=== PATIENT | female | born 1980 | race Caucasian/White ===

== ENCOUNTER 2021-03-13 08:53 | Outpatient (REF) | payer OTHER, SELFPAY ==
--- NOTE | ~2021-03-13 | US_ITS ---
EXAMINATION: US THYROID CLINICAL INFORMATION: Nontoxic goiter, unspecified. COMPARISON: None TECHNIQUE: Linear transducer grayscale and color Doppler examination with attention to the region of the thyroid. FINDINGS: SIZE: Measurements of the thyroid lobes and nodules are given in sagittal, anteroposterior and transverse dimensions respectively. Right Thyroid Lobe: 3.9 x 1.2 x 2.4 cm, volume 5.9 mL. Parenchyma: The gland echotexture is heterogeneous. Thyroid vascularity is normal. Left Thyroid Lobe: 3.2 x 1.1 x 1.5 cm, volume 2.8 mL. Parenchyma: The gland echotexture is heterogeneous. Thyroid vascularity is normal. Isthmus: 0.2 cm in maximum AP dimension. Estimated total number of nodules greater than or equal to 1 cm: 0. Bricklayer Helper nodules are described as follows: 1. Location: Right inferior lateral. Size: 0.51 x 0.37 x 0.61 cm, volume 0.06 mL. Nodule characteristics: Composition: Cystic(0). ACR TI-RADS total points: 0 ACR TI-RADS category: 1 NODES: No lymphadenopathy is seen in the tissue surrounding the thyroid gland. US/US thyroid IMPRESSION: 1. Homogeneous thyroid parenchyma. No thyromegaly. 2. Inferior right thyroid cyst measuring 0.6 cm with ultrasound characteristics consistent with TI-RADS Category 1. No follow-up recommended. ACR TI-RADS RECOMMENDATION REFERENCE: Ultrasound-guided fine-needle aspiration, followup ultrasound, no further follow up. * TR1 (0 point) and TR 2 (2 points): No FNA or follow up * TR3 (3 points): FNA if more than or equal to 2.5 cm in maximum dimension, followup ultrasound in 1, 3 and 5 years if 1.5 to 2.4 cm in maximum dimension. * TR4 (4-6 points): FNA if more than or equal to 1.5 cm in maximum dimension, followup ultrasound in 1, 2, 3 and 5 years if 1 to 1.4 cm in maximum dimension. * TR5 (more than or equal to 7 points): FNA if more than or equal to 1 cm in maximum dimension, followup ultrasound every year for 5 years if 0.5 to 0.9 cm in maximum dimension. * TR3, TR4 or TR5 nodules that are below the size threshold for follow up receive no follow up.
[2021-03-13 10:51] LABS: Alanine Aminotransferase 14 U/L (0-31); Albumin Level 4.5 g/dL (3.5-5.0); Alkaline Phosphatase 62 U/L (39-117); Anion Gap 15 (12-20); Aspartate Amino Transferase 12 U/L (5-31); Bilirubin Total 0.3 mg/dL (0.0-1.0); Blood Urea Nitrogen 8 mg/dL (9-16); Calcium 9.5 mg/dL (8.4-10.2); Carbon Dioxide 23 mmol/L (22-29); Chloride 106 mmol/L (96-108); Cholesterol 225 mg/dL; Estimated Glomerular Filt Rate > 60; Glucose Fasting 111 mg/dL (60-99); HDL Cholesterol 42 mg/dL; LDL Cholesterol Calculated 139 mg/dl; Potassium 4.5 mmol/L (3.3-5.1); Sodium 139 mmol/L (135-145); Total Protein 7.4 g/dL (6.5-8.0); Triglycerides 220 mg/dL
[2021-03-13 11:03] LABS: TSH reflex Free T4 1.42 uIU/mL (0.32-4.0)
== END 2021-03-13 08:54 | disposition home or self-care (01) ==
LOC: HO.US 08:53
PROVIDERS: Nurse Practitioner Family; Visit Provider Internal Medicine
DX: Z00.00 Encounter for general adult medical examination without abnormal findings (principal); E04.9 Nontoxic goiter, unspecified
CPT/HCPCS: 36415; 76536; 80053; 80061; 84443

== ENCOUNTER 2021-05-02 08:17 | Outpatient (REF) | payer OTHER, SELFPAY ==
[2021-05-02 11:10] LABS: MANUAL DIFF FLAG NO
[2021-05-02 11:22] LABS: Glucose Urine UA NEG (NEG); Leukocyte Esterase Urine NEG (NEG); Nitrite Urine NEG (NEG); Specific Gravity - Urine 1.025 (1.005-1.025); Urine Blood NEG (NEG); Urine Ketones NEG (NEG); Urine Protein TRACE MG/DL (NEG-TRACE)
[2021-05-02 11:25] LABS: Appearance Urine CLOUDY; Color Urine YELLOW
[2021-05-02 11:33] LABS: Basophils Percent Auto 0.5 % (0-2); Eosinophils Absolute Auto 0.1 X10*3/uL (0.0-0.4); Eosinophils Percent Auto 1.5 % (0-4); Hematocrit 36.4 % (37-47); Hemoglobin 10.8 g/dl (12.0-16.0); Imm Gran Abs Auto 0.02 X10*3/uL (0.00-0.03); Imm Gran Pct Auto 0.2 % (0.0-0.4); Lymphocytes Absolute Auto 1.9 X10*3/uL (1.2-4.9); Lymphocytes Percent Auto 23.6 % (20-40); Mean Corpuscular HGB Conc 29.7 g/dl (31.0-35.0); Mean Corpuscular Volume 77.4 fL (80-98); Mean Platelet Volume 10.8 fL (9.4-12.3); Monocytes Absolute Auto 0.7 X10*3/uL (0.1-1.2); Monocytes Percent Auto 8.5 % (2-11); Neutrophils Absolute Auto 5.3 X10*3/uL (2.0-8.3); Neutrophils Percent Auto 65.7 % (45-73); Platelet Count 411 X10*3/uL (160-400); Red Cell Distribution Width 19.8 % (11.0-16.0); White Blood Count 8.1 X10*3/uL (4.8-10.8)
[2021-05-02 11:52] LABS: Iron 20 mcg/dL (30-160); Percent Iron Saturation 4 % (15-50); Total Iron Binding Capacity 464 mcg/dL (228-428); Unsaturated Iron Binding 444 ug/dL
[2021-05-02 11:56] LABS: Alanine Aminotransferase 14 U/L (0-31); Albumin Level 4.7 g/dL (3.5-5.0); Alkaline Phosphatase 59 U/L (39-117); Anion Gap 14 (12-20); Aspartate Amino Transferase 13 U/L (5-31); Bilirubin Total 0.4 mg/dL (0.0-1.0); Blood Urea Nitrogen 11 mg/dL (9-16); Calcium 9.5 mg/dL (8.4-10.2); Carbon Dioxide 23 mmol/L (22-29); Chloride 108 mmol/L (96-108); Cholesterol 172 mg/dL; Estimated Glomerular Filt Rate > 60; Glucose Fasting 112 mg/dL (60-99); HDL Cholesterol 37 mg/dL; LDL Cholesterol Calculated 83 mg/dl; Potassium 3.6 mmol/L (3.3-5.1); Sodium 141 mmol/L (135-145); Total Protein 7.3 g/dL (6.5-8.0); Triglycerides 264 mg/dL
[2021-05-02 12:04] LABS: Ferritin 4 ng/mL (10-250)
[2021-05-02 12:05] LABS: TSH reflex Free T4 1.49 uIU/mL (0.32-4.0)
[2021-05-02 12:22] LABS: Vitamin B12 182 pg/mL (200-900)
== END 2021-05-02 08:18 | disposition home or self-care (01) ==
LOC: HO.HMGCLDS 08:17
PROVIDERS: PCP Nurse Practitioner Family; Visit Provider Nurse Practitioner Family
DX: E78.5 Hyperlipidemia, unspecified (principal); G89.29 Other chronic pain; M54.5 Low back pain; R53.83 Other fatigue
CPT/HCPCS: 36415; 80053; 80061; 81003; 82607; 82728; 83540; 84443; 85025

== ENCOUNTER 2021-05-22 08:47 | Outpatient (REF) | payer OTHER, SELFPAY ==
--- NOTE | ~2021-05-22 | MR_ITS ---
EXAMINATION: MR LUMBAR SPINE WITHOUT CONTRAST CLINICAL INFORMATION: Bilateral leg pain, weakness, numbness. Lower back pain. COMPARISON: Lumbar spine MRI dated 06/19/2014 TECHNIQUE: MRI of the lumbar spine was obtained using routine sequences without contrast. FINDINGS: VERTEBRAL BODIES AND PARASPINAL STRUCTURES: Normal vertebral body alignment. The lumbar lordosis is maintained. No acute fracture or subluxation. No loss of vertebral body height. Loss of intervertebral disc height with disc desiccation at T11-T12. Additional loss of intervertebral disc height with disc desiccation at L2-S1. Modic type II degenerative endplate changes at L5-S1. Vertebral body hemangioma within L3, unchanged. No acute marrow edema to suggest osseous injury. The visualized paraspinal soft tissues are unremarkable. CONUS MEDULLARIS AND CAUDA EQUINA: Normal, terminating at the level of L1. SPINAL LEVELS: T12-L1: No significant disc bulge. Bilateral facet arthropathy. No central canal or neural foraminal stenosis. L1-L2: New, right paracentral disc protrusion with bilateral facet arthropathy. No central canal or neural foraminal stenosis. L2-L3: Broad-based disc bulge with bilateral facet arthropathy and thickening of the ligamentum flavum causing minimal central canal stenosis which encroaches upon the traversing bilateral L3 nerve roots within the lateral recesses. Mild bilateral neural foraminal stenosis. Findings are similar when compared to the prior examination. L3-L4: Broad-based disc bulge with a superimposed right paracentral and subarticular disc protrusion, slightly more prominent when compared to the prior examination. This abuts the traversing right L4 nerve root within the lateral recess. Bilateral facet arthropathy with mild bilateral neural foraminal stenosis. L4-L5: Broad-based disc bulge with a shallow left paracentral disc protrusion. Bilateral facet arthropathy and thickening of the ligamentum flavum with mild central canal stenosis which encroaches upon the traversing bilateral L5 nerve roots within the lateral recesses, left greater than right. Additionally, this causes moderate bilateral neural foraminal stenosis. Findings are slightly progressed when compared to the prior examination. L5-S1: Broad-based disc bulge with a posterior central disc protrusion which contacts the traversing bilateral S1 nerve roots within the lateral recesses and is similar when compared to the prior examination. Bilateral facet arthropathy with mild bilateral neural foraminal stenosis, unchanged. MR/MR lumbar spine wo con IMPRESSION: 1. L3-L4 broad-based disc bulge and superimposed right paracentral and subarticular disc protrusion, slightly more prominent when compared to the prior examination which abuts the traversing right L4 nerve root. Bilateral facet arthropathy with mild bilateral neural foraminal stenosis. 2. Broad-based disc bulge at L4-L5 with a shallow left paracentral disc protrusion as well as bilateral facet arthropathy and thickening of the ligamentum flavum causing mild central canal stenosis which encroaches upon the traversing bilateral L5 nerve roots, left greater than right. Moderate bilateral neural foraminal stenosis. Findings are slightly progressed when compared to the prior examination. 3. Broad-based disc bulge at L5-S1 with a posterior central disc protrusion contacting the traversing bilateral S1 nerve roots as well as bilateral facet arthropathy and mild bilateral neural foraminal stenosis. Overall, findings are similar when compared to the prior examination.
== END 2021-05-22 08:48 | disposition home or self-care (01) ==
LOC: HO.MRI 08:47
PROVIDERS: PCP Nurse Practitioner Family; Visit Provider Nurse Practitioner Family
DX: G89.29 Other chronic pain (principal); M54.5 Low back pain
CPT/HCPCS: 72148

== ENCOUNTER 2021-06-10 10:40 | Outpatient (REF) | payer OTHER, SELFPAY ==
--- NOTE | ~2021-06-10 | MM_ITS ---
EXAMINATION: MM SCREENING DIGITAL BREAST TOMOSYNTHESIS, BILATERAL CLINICAL INFORMATION: Screening. Asymptomatic. Age 40. No prior breast imaging. No known family history breast cancer. The lifetime risk of breast cancer based on the Tyrer-Cuzick Model is 13%. COMPARISON: None (current study represents initial baseline exam). TECHNIQUE: Digital breast tomosynthesis is performed in both the craniocaudal and mediolateral oblique views along with computer-aided detection (CAD). Synthesized 2D images are generated from the tomosynthesis. Additional exaggerated left CC view is provided. FINDINGS: There are scattered areas of fibroglandular density (ACR BI-RADS breast composition Category b). Breast tissue composition borders on predominantly fatty. There is no significant mass or architectural abnormality or abnormal calcifications. Incidental low left axillary tail node is present on MLO view. The axilla and skin contours are unremarkable. MM/MM tomosynthesis screening BI IMPRESSION: No mammographic evidence of malignancy. ASSESSMENT: BI-RADS 1: Negative RECOMMENDATION: Routine annual mammography screening. This patient's information was entered into a reminder system with a target due date for their next mammogram.
== END 2021-06-10 10:41 | disposition home or self-care (01) ==
LOC: HO.MAMMO 10:40
PROVIDERS: Visit Provider Nurse Practitioner Family
DX: Z12.31 Encounter for screening mammogram for malignant neoplasm of breast (principal)
CPT/HCPCS: 77063; 77067

== ENCOUNTER 2021-07-09 07:27 | Outpatient (REF) | payer OTHER, SELFPAY ==
[2021-07-09 11:52] LABS: MANUAL DIFF FLAG NO
[2021-07-09 11:58] LABS: Basophils Percent Auto 0.4 % (0-2); Eosinophils Absolute Auto 0.1 X10*3/uL (0.0-0.4); Eosinophils Percent Auto 1.3 % (0-4); Hematocrit 42.3 % (37.0-47.0); Hemoglobin 13.3 g/dl (12.0-16.0); Imm Gran Abs Auto 0.03 X10*3/uL (0.00-0.03); Imm Gran Pct Auto 0.3 % (0.0-0.4); Lymphocytes Absolute Auto 1.8 X10*3/uL (1.2-4.9); Lymphocytes Percent Auto 18.5 % (20-40); Mean Corpuscular HGB Conc 31.4 g/dl (31.0-35.0); Mean Corpuscular Hemoglobin 27.7 pg (27.0-33.0); Mean Corpuscular Volume 87.9 fL (80.0-98.0); Mean Platelet Volume 11.8 fL (9.4-12.3); Monocytes Absolute Auto 0.5 X10*3/uL (0.1-1.2); Monocytes Percent Auto 4.9 % (2-11); Neutrophils Absolute Auto 7.3 x10*3/uL (2.0-8.3); Neutrophils Percent Auto 74.6 % (45-73); Platelet Count 279 X10*3/uL (160-400); Red Blood Count 4.81 X10*6/uL (4.20-5.50); Red Cell Distribution Width 19.9 % (11.0-16.0); White Blood Count 9.8 X10*3/uL (4.8-10.8)
[2021-07-09 12:31] LABS: Ferritin 24 ng/mL (10-250)
[2021-07-09 12:33] LABS: Alanine Aminotransferase 12 U/L (0-31); Albumin Level 4.5 g/dL (3.5-5.0); Alkaline Phosphatase 53 U/L (39-117); Anion Gap 11 (12-20); Aspartate Amino Transferase 11 U/L (5-31); Bilirubin Total 0.2 mg/dL (0.0-1.0); Blood Urea Nitrogen 11 mg/dL (9-16); Calcium 8.9 mg/dL (8.4-10.2); Carbon Dioxide 24 mmol/L (22-29); Chloride 110 mmol/L (96-108); Cholesterol 179 mg/dL; Estimated Glomerular Filt Rate > 60; Glucose Random 115 mg/dL (60-115); HDL Cholesterol 37 mg/dL; Iron 31 mcg/dL (30-160); LDL Cholesterol Calculated 75 mg/dl; Percent Iron Saturation 8 % (15-50); Potassium 4.1 mmol/L (3.3-5.1); Sodium 141 mmol/L (135-145); Total Iron Binding Capacity 380 mcg/dL (228-428); Triglycerides 339 mg/dL; Unsaturated Iron Binding 349 ug/dL
[2021-07-09 12:44] LABS: Lactate Dehydrogenase 156 U/L (122-220)
[2021-07-09 12:48] LABS: Folate 10.2 ng/mL (> or = 4.0); Vitamin B12 599 pg/mL (200-900)
[2021-07-11 16:31] LABS: Transglutaminase IgA <1.0 U/mL
[2021-07-15 15:11] LABS: Parietal Cell Antibody 37.1 Unit (<=20.0)
[2021-07-16 21:56] LABS: Intrinsic Factor Antibodies Negative (Negative)
== END 2021-07-09 07:28 | disposition home or self-care (01) ==
LOC: HO.HMGCLDS 07:27
PROVIDERS: Internal Medicine Medical Oncology; PCP Nurse Practitioner Family; Visit Provider Nurse Practitioner Family
DX: D64.9 Anemia, unspecified (principal); E78.5 Hyperlipidemia, unspecified; E53.8 Deficiency of other specified B group vitamins
CPT/HCPCS: 36415; 80053; 80061; 82607; 82728; 82746; 83516; 83540; 83615; 85025; 86340

== ENCOUNTER 2021-08-08 11:19 | Outpatient (REF) | payer OTHER, SELFPAY ==
[2021-08-08 13:38] LABS: MANUAL DIFF FLAG NO
[2021-08-08 13:42] LABS: Basophils Percent Auto 0.4 % (0-2); Eosinophils Absolute Auto 0.1 X10*3/uL (0.0-0.4); Eosinophils Percent Auto 0.6 % (0-4); Hematocrit 43.5 % (37.0-47.0); Hemoglobin 14.2 g/dl (12.0-16.0); Imm Gran Abs Auto 0.03 X10*3/uL (0.00-0.03); Imm Gran Pct Auto 0.3 % (0.0-0.4); Lymphocytes Absolute Auto 1.9 X10*3/uL (1.2-4.9); Lymphocytes Percent Auto 18.1 % (20-40); Mean Corpuscular HGB Conc 32.6 g/dl (31.0-35.0); Mean Corpuscular Hemoglobin 29.2 pg (27.0-33.0); Mean Corpuscular Volume 89.5 fL (80.0-98.0); Mean Platelet Volume 11.3 fL (9.4-12.3); Monocytes Absolute Auto 0.7 X10*3/uL (0.1-1.2); Monocytes Percent Auto 6.3 % (2-11); Neutrophils Absolute Auto 7.8 x10*3/uL (2.0-8.3); Neutrophils Percent Auto 74.3 % (45-73); Platelet Count 310 X10*3/uL (160-400); Red Blood Count 4.86 X10*6/uL (4.20-5.50); Red Cell Distribution Width 17.1 % (11.0-16.0); White Blood Count 10.4 X10*3/uL (4.8-10.8)
[2021-08-08 15:01] LABS: Iron 62 mcg/dL (30-160); Percent Iron Saturation 16 % (15-50); Total Iron Binding Capacity 400 mcg/dL (228-428); Unsaturated Iron Binding 338 ug/dL
[2021-08-08 15:15] LABS: Vitamin B12 360 pg/mL (200-900)
[2021-08-08 15:21] LABS: Ferritin 24 ng/mL (10-250)
[2021-08-08 15:28] LABS: Vitamin B12 369 pg/mL (200-900)
[2021-08-12 07:26] LABS: Methylmalonic Acid 112 nmol/L (87-318)
[2021-08-12 18:16] LABS: Homocysteine 10.9 umol/L (<10.4)
== END 2021-08-08 11:20 | disposition home or self-care (01) ==
LOC: HO.HMGCLDS 11:19
PROVIDERS: PCP Nurse Practitioner Family; Visit Provider Nurse Practitioner Family
DX: D64.9 Anemia, unspecified (principal); E53.8 Deficiency of other specified B group vitamins
CPT/HCPCS: 36415; 82607; 82728; 82746; 83090; 83540; 83921; 85025

== ENCOUNTER 2021-10-01 09:45 | Outpatient (REF) | payer OTHER, SELFPAY ==
--- NOTE | ~2021-10-01 | XR_ITS ---
EXAMINATION: XR KNEE, RIGHT CLINICAL INFORMATION: Right knee pain COMPARISON: None TECHNIQUE: Four views of the right knee. FINDINGS: There is a total right knee arthroplasty with prosthetic components in satisfactory alignment. There is no joint effusion. Loose bodies or soft tissue swelling. XR/XR knee RT 4V IMPRESSION: Total right knee arthroplasty with prosthetic components in satisfactory alignment.
[2021-10-01 11:36] LABS: MANUAL DIFF FLAG NO
[2021-10-01 11:38] LABS: Basophils Percent Auto 0.4 % (0-2); Eosinophils Absolute Auto 0.1 X10*3/uL (0.0-0.4); Eosinophils Percent Auto 1.1 % (0-4); Hematocrit 43.5 % (37.0-47.0); Hemoglobin 13.9 g/dl (12.0-16.0); Imm Gran Abs Auto 0.03 X10*3/uL (0.00-0.03); Imm Gran Pct Auto 0.3 % (0.0-0.4); Lymphocytes Absolute Auto 2.5 X10*3/uL (1.2-4.9); Lymphocytes Percent Auto 25.5 % (20-40); Mean Corpuscular Hemoglobin 29.4 pg (27.0-33.0); Mean Corpuscular Volume 92.2 fL (80.0-98.0); Mean Platelet Volume 11.4 fL (9.4-12.3); Monocytes Absolute Auto 0.7 X10*3/uL (0.1-1.2); Neutrophils Absolute Auto 6.4 x10*3/uL (2.0-8.3); Neutrophils Percent Auto 65.7 % (45-73); Platelet Count 303 X10*3/uL (160-400); Red Blood Count 4.72 X10*6/uL (4.20-5.50); Red Cell Distribution Width 14.1 % (11.0-16.0); White Blood Count 9.7 X10*3/uL (4.8-10.8)
[2021-10-01 12:14] LABS: Alanine Aminotransferase 15 U/L (0-31); Albumin Level 4.7 g/dL (3.5-5.0); Alkaline Phosphatase 41 U/L (39-117); Anion Gap 12 (12-20); Aspartate Amino Transferase 12 U/L (5-31); Bilirubin Total 0.4 mg/dL (0.0-1.0); Blood Urea Nitrogen 10 mg/dL (9-16); Calcium 9.2 mg/dL (8.4-10.2); Carbon Dioxide 21 mmol/L (22-29); Chloride 112 mmol/L (96-108); Estimated Glomerular Filt Rate > 60; Glucose Random 90 mg/dL (60-115); Potassium 4.1 mmol/L (3.3-5.1); Sodium 141 mmol/L (135-145); Total Protein 7.5 g/dL (6.5-8.0)
[2021-10-01 12:18] LABS: TSH reflex Free T4 1.06 uIU/mL (0.32-4.0)
[2021-10-01 12:29] LABS: Folate > 20.0 ng/mL (> or = 4.0); Vitamin B12 527 pg/mL (200-900)
== END 2021-10-01 09:46 | disposition home or self-care (01) ==
LOC: HO.HMGCLDS 09:45
PROVIDERS: Visit Provider Nurse Practitioner Family
DX: E53.8 Deficiency of other specified B group vitamins (principal); R53.83 Other fatigue
CPT/HCPCS: 36415; 73564; 80053; 82607; 82746; 84443; 85025

== ENCOUNTER 2021-12-11 09:04 | Outpatient (REF) | payer OTHER, SELFPAY ==
[2021-12-11 11:09] LABS: MANUAL DIFF FLAG NO
[2021-12-11 11:29] LABS: Basophils Percent Auto 0.4 % (0-2); Eosinophils Absolute Auto 0.1 X10*3/uL (0.0-0.4); Eosinophils Percent Auto 1.2 % (0-4); Hematocrit 42.7 % (37.0-47.0); Imm Gran Abs Auto 0.04 X10*3/uL (0.00-0.03); Imm Gran Pct Auto 0.4 % (0.0-0.4); Lymphocytes Absolute Auto 2.2 X10*3/uL (1.2-4.9); Lymphocytes Percent Auto 20.8 % (20-40); Mean Corpuscular HGB Conc 32.8 g/dl (31.0-35.0); Mean Corpuscular Hemoglobin 30.2 pg (27.0-33.0); Mean Platelet Volume 11.2 fL (9.4-12.3); Monocytes Absolute Auto 0.6 X10*3/uL (0.1-1.2); Monocytes Percent Auto 5.9 % (2-11); Neutrophils Absolute Auto 7.6 x10*3/uL (2.0-8.3); Neutrophils Percent Auto 71.3 % (45-73); Platelet Count 263 X10*3/uL (160-400); Red Blood Count 4.64 X10*6/uL (4.20-5.50); Red Cell Distribution Width 13.7 % (11.0-16.0); White Blood Count 10.7 X10*3/uL (4.8-10.8)
[2021-12-11 11:50] LABS: Iron 96 mcg/dL (30-160); Percent Iron Saturation 25 % (15-50); Total Iron Binding Capacity 388 mcg/dL (228-428); Unsaturated Iron Binding 292 ug/dL
[2021-12-11 11:58] LABS: Ferritin 22 ng/mL (10-250)
[2021-12-11 12:12] LABS: Folate > 20.0 ng/mL (> or = 4.0); Vitamin B12 444 pg/mL (200-900)
[2021-12-12 11:36] LABS: Lyme Abs Screen <0.90 index
== END 2021-12-11 09:05 | disposition home or self-care (01) ==
LOC: HO.HMGCLDS 09:04
PROVIDERS: PCP Nurse Practitioner Family; Visit Provider Nurse Practitioner Family
DX: E53.8 Deficiency of other specified B group vitamins (principal); R53.83 Other fatigue; E61.1 Iron deficiency
CPT/HCPCS: 36415; 82607; 82728; 82746; 83540; 85025; 86617; 86618

== ENCOUNTER 2021-12-26 09:00 | Outpatient (RCR) | payer OTHER, SELFPAY ==
--- NOTE | 2021-12-04 11:59 | MHC.PT.EP ---
[facility] [place] Office [place] Office [place] Office [address] Fernando Green [address] [phone] F: [phone] F: [phone] F: [phone] F: [phone] Physical Therapy Plan of Care Date of Evaluation: Date of Surgery: R knee TKA 2016 Diagnosis: R knee pain Assessment: Patient is a 41 year old R handed female who presents with s/s consistent with R knee pain. She had a TKA in 2017. Over the last few months, pain has increased to the point where it limits her functionally. She is disabled with an extensive PMH and surgical history. She does care for her mother to some extent. Patient past medical history includes multiple surgeries, bipolar disorder. A full list of surgeries will be retrieved by patient for her first follow up appointment. Current impairments include pain, posture, ROM, strength, activity tolerance and functional mobility. Functional limitations include decreased ability to stand, walk, negotiate stairs and perform weight bearing activities. Patient is motivated with good rehab potential. Skilled PT will address impairments and functional limitations in order to achieve goals. Frequency and Duration: The patient will be seen 2x/week for 5 weeks Short Term Goals: I with HEP - 2 weeks Normal gastroc and HS flexibility - 3 weeks Business Improvement Manager Goals: Able to negotiate stairs pain free - 5 weeks Amb > 20 minutes without increasing pain - 5 weeks TTP eliminated - 5 weeks LEFS 62/80 - 5 weeks Treatment Plan: Modalities to reduce pain, spasms and effusion. Manual therapy to restore motion and function. Therapeutic exercise to improve strength and flexibility. Neuromuscular re-education for posture and balance. Therapeutic activities to return to functional activities of daily living. Electronically signed by: Pawel Vee, PT Please sign and return to therapist. Thank you for your referral.
--- NOTE | 2021-12-26 14:57 | MHC.PT.OD ---
[facility] [place] Office [place] [employer] Office [place] Office [address] Fernando Green [address] [phone] F: [phone] F: [phone] F: [phone] F: [phone] Physical Therapy Daily Note Diagnosis: R knee pain Date of Surgery: R knee TKA 2016 Date of Evaluation: 12/04/21 Date of Treatment: 12/26/21 Treatments to Date: 6 Cancellations to Date: No Shows to Date: Authorized Visits: Insurance End Date: Precautions/ Contraindications:R TKA, L knee is bone on bone . MRI shows nerve involvement and central stenosis at various lumbar levels Subjective: Pt notes getting B12 shot and not feeling well. Pain Score and Location: 7 Objective Flowsheet: Tests & Measures LEFS 29/80 (45/80 on eval) Exercises Stepper 8 min L2 pt edu IASTM to ITB Modalities Assessment: 12/26/21: due to increased s/s with low level, low impact ex, we will hold on PT and refer back to referring provider to promote optimal management of this patient. further imaging may be of benefit. 12/23/21: attempted very mild progression but pt had increased pain even though all ex was done on stepper or plinth. we will continue to attempt meaningful progress NV. 12/19/21: we discussed response to PT last visit and appropriate response to PT. reduced standing activity load. assess response Nv. 12/12/21: pt notes increased soreness in b/l knee. we will manage this as we attempt to progress. we held on shuttle today. we will revisit this down the road as pt improved tolerance. 12/09/21: progressed with skilled PT for strength. we will assess response and progress as tolerated. Patient is a 41 year old R handed female who presents with s/s consistent with R knee pain. She had a TKA in 2017. Over the last few months, pain has increased to the point where it limits her functionally. She is disabled with an extensive PMH and surgical history. She does care for her mother to some extent. Patient past medical history includes multiple surgeries, bipolar disorder. A full list of surgeries will be retrieved by patient for her first follow up appointment. Current impairments include pain, posture, ROM, strength, activity tolerance and functional mobility. Functional limitations include decreased ability to stand, walk, negotiate stairs and perform weight bearing activities. Patient is motivated with good rehab potential. Skilled PT will address impairments and functional limitations in order to achieve goals. PT Plan: reduce pain with functional activities, restore patellar mobility and positioning. Short Term Goals: I with HEP - 2 weeks Normal gastroc and HS flexibility - 3 weeks [facility] Goals: Able to negotiate stairs pain free - 5 weeks Amb > 20 minutes without increasing pain - 5 weeks TTP eliminated - 5 weeks LEFS 62/80 - 5 weeks Electronically signed by: Pawel Vee, PT
--- NOTE | 2022-05-22 10:04 | MHC.PT.DC ---
[facility] [place] Office [place] Office [place] Office [address] Fernando Green [address] [phone] F: [phone] F: [phone] F: [phone] F: [phone] Physical Therapy Discharge Report Diagnosis: R knee pain Date of Surgery: R knee TKA 2016 Date of Evaluation: 12/04/21 Date of Discharge: 01/22/22 Treatments to Date: 6 Cancellations to Date: No Shows to Date: Discharge Status: Improved Function Independent with HEP Discharge Summary: 12/26/21: due to increased s/s with low level, low impact ex, we will hold on PT and refer back to referring provider to promote optimal management of this patient. further imaging may be of benefit. 12/23/21: attempted very mild progression but pt had increased pain even though all ex was done on stepper or plinth. we will continue to attempt meaningful progress NV. 12/19/21: we discussed response to PT last visit and appropriate response to PT. reduced standing activity load. assess response Nv. 12/12/21: pt notes increased soreness in b/l knee. we will manage this as we attempt to progress. we held on shuttle today. we will revisit this down the road as pt improved tolerance. 12/09/21: progressed with skilled PT for strength. we will assess response and progress as tolerated. Patient is a 41 year old R handed female who presents with s/s consistent with R knee pain. She had a TKA in 2016. Over the last few months, pain has increased to the point where it limits her functionally. She is disabled with an extensive PMH and surgical history. She does care for her mother to some extent. Patient past medical history includes multiple surgeries, bipolar disorder. A full list of surgeries will be retrieved by patient for her first follow up appointment. Current impairments include pain, posture, ROM, strength, activity tolerance and functional mobility. Functional limitations include decreased ability to stand, walk, negotiate stairs and perform weight bearing activities. Patient is motivated with good rehab potential. Skilled PT will address impairments and functional limitations in order to achieve goals. Electronically signed by: Pawel Vee, PT Please sign and return to therapist. Thank you for your referral.
--- NOTE | 2022-05-22 10:04 | MHC.PT.DC ---
[facility] [place] Office [place] Office [place] Office [address] Fernando Green [address] [phone] F: [phone] F: [phone] F: [phone] F: [phone] Physical Therapy Discharge Report Diagnosis: R knee pain Date of Surgery: R knee TKA 2016 Date of Evaluation: 12/04/21 Date of Discharge: 01/22/22 Treatments to Date: 6 Cancellations to Date: No Shows to Date: Discharge Status: Improved Function Independent with HEP Discharge Summary: 12/26/21: due to increased s/s with low level, low impact ex, we will hold on PT and refer back to referring provider to promote optimal management of this patient. further imaging may be of benefit. 12/23/21: attempted very mild progression but pt had increased pain even though all ex was done on stepper or plinth. we will continue to attempt meaningful progress NV. 12/19/21: we discussed response to PT last visit and appropriate response to PT. reduced standing activity load. assess response Nv. 12/12/21: pt notes increased soreness in b/l knee. we will manage this as we attempt to progress. we held on shuttle today. we will revisit this down the road as pt improved tolerance. 12/09/21: progressed with skilled PT for strength. we will assess response and progress as tolerated. Patient is a 41 year old R handed female who presents with s/s consistent with R knee pain. She had a TKA in 2016. Over the last few months, pain has increased to the point where it limits her functionally. She is disabled with an extensive PMH and surgical history. She does care for her mother to some extent. Patient past medical history includes multiple surgeries, bipolar disorder. A full list of surgeries will be retrieved by patient for her first follow up appointment. Current impairments include pain, posture, ROM, strength, activity tolerance and functional mobility. Functional limitations include decreased ability to stand, walk, negotiate stairs and perform weight bearing activities. Patient is motivated with good rehab potential. Skilled PT will address impairments and functional limitations in order to achieve goals. Electronically signed by: Pawel Vee, PT Please sign and return to therapist. Thank you for your referral.
== END 2022-05-22 10:04 | disposition home or self-care (01) ==
LOC: HO.PTCHIC 09:00
PROVIDERS: PCP Nurse Practitioner Family; Visit Provider Nurse Practitioner Family
DX: M25.561 Pain in right knee (principal)
CPT/HCPCS: 97110; 97140; 97163

== ENCOUNTER 2022-07-02 07:35 | Outpatient (REF) | payer OTHER, SELFPAY ==
[2022-07-02 12:03] LABS: MANUAL DIFF FLAG NO
[2022-07-02 12:07] LABS: Basophils Percent Auto 0.5 % (0-2); Eosinophils Absolute Auto 0.2 X10*3/uL (0.0-0.4); Eosinophils Percent Auto 1.8 % (0-4); Hematocrit 42.8 % (37.0-47.0); Hemoglobin 14.3 g/dl (12.0-16.0); Imm Gran Abs Auto 0.02 X10*3/uL (0.00-0.03); Imm Gran Pct Auto 0.2 % (0.0-0.4); Lymphocytes Absolute Auto 2.9 X10*3/uL (1.2-4.9); Lymphocytes Percent Auto 34.8 % (20-40); Mean Corpuscular HGB Conc 33.4 g/dl (31.0-35.0); Mean Corpuscular Hemoglobin 30.4 pg (27.0-33.0); Mean Corpuscular Volume 90.9 fL (80.0-98.0); Mean Platelet Volume 11.5 fL (9.4-12.3); Monocytes Absolute Auto 0.6 X10*3/uL (0.1-1.2); Monocytes Percent Auto 7.5 % (2-11); Neutrophils Absolute Auto 4.5 x10*3/uL (2.0-8.3); Neutrophils Percent Auto 55.2 % (45-73); Platelet Count 271 X10*3/uL (160-400); Red Blood Count 4.71 X10*6/uL (4.20-5.50); Red Cell Distribution Width 12.4 % (11.0-16.0); White Blood Count 8.2 X10*3/uL (4.8-10.8)
[2022-07-02 12:36] LABS: Alanine Aminotransferase 10 U/L (0-31); Albumin Level 4.8 g/dL (3.5-5.0); Alkaline Phosphatase 54 U/L (39-117); Anion Gap 17 (12-20); Aspartate Amino Transferase 10 U/L (5-31); Bilirubin Total 0.3 mg/dL (0.0-1.0); Blood Urea Nitrogen 17 mg/dL (9-16); Carbon Dioxide 23 mmol/L (22-29); Chloride 108 mmol/L (96-108); Estimated Glomerular Filt Rate > 60; Glucose Random 95 mg/dL (60-115); Iron 117 mcg/dL (30-160); Percent Iron Saturation 33 % (15-50); Potassium 4.1 mmol/L (3.3-5.1); Sodium 144 mmol/L (135-145); Total Iron Binding Capacity 351 mcg/dL (228-428); Total Protein 7.4 g/dL (6.5-8.0); Unsaturated Iron Binding 234 ug/dL
[2022-07-02 12:42] LABS: Ferritin 86 ng/mL (10-250); TSH reflex Free T4 2.31 uIU/mL (0.32-4.0)
[2022-07-02 13:15] LABS: Folate > 20.0 ng/mL (> or = 4.0); Vitamin B12 541 pg/mL (200-900)
== END 2022-07-02 07:36 | disposition home or self-care (01) ==
LOC: HO.HMGCLDS 07:35
PROVIDERS: PCP Nurse Practitioner Family; Visit Provider Nurse Practitioner Family
DX: E53.8 Deficiency of other specified B group vitamins (principal); E61.1 Iron deficiency; R79.89 Other specified abnormal findings of blood chemistry; D64.9 Anemia, unspecified
CPT/HCPCS: 36415; 80053; 82607; 82728; 82746; 83540; 84443; 85025

== ENCOUNTER 2022-11-27 09:52 | Outpatient (REF) | payer OTHER, SELFPAY ==
--- NOTE | ~2022-11-27 | MM_ITS ---
EXAMINATION: MM SCREENING DIGITAL BREAST TOMOSYNTHESIS, BILATERAL CLINICAL INFORMATION: Screening. Asymptomatic. The lifetime risk of breast cancer based on the Tyrer-Cuzick Model is 11.3%. COMPARISON: Mammography: June 10, 2021 TECHNIQUE: Digital breast tomosynthesis is performed in both the craniocaudal and mediolateral oblique views along with computer-aided detection (CAD). Synthesized 2D images are generated from the tomosynthesis. FINDINGS: The breasts are almost entirely fatty (ACR BI-RADS breast composition Category a). There are no significant masses, abnormal calcifications, or other abnormalities. MM/MM tomosynthesis screening BI IMPRESSION: No significant changes from prior exam. ASSESSMENT: BI-RADS 1: Negative RECOMMENDATION: Routine annual mammography screening. This patient's information was entered into a reminder system with a target due date for their next mammogram.
== END 2022-11-27 09:53 | disposition home or self-care (01) ==
LOC: HO.MAMMO 09:52
PROVIDERS: PCP Nurse Practitioner Family; Visit Provider Nurse Practitioner Family
DX: Z12.31 Encounter for screening mammogram for malignant neoplasm of breast (principal)
CPT/HCPCS: 77063; 77067

== ENCOUNTER 2022-12-17 08:41 | Outpatient (REF) | payer OTHER, SELFPAY ==
[2022-12-17 11:27] LABS: MANUAL DIFF FLAG NO
[2022-12-17 11:31] LABS: Appearance Urine Cloudy; Color Urine Yellow; Glucose Urine UA Negative (Negative); Leukocyte Esterase Urine Negative (Negative); Nitrite Urine Negative (Negative); Specific Gravity - Urine 1.025 (1.005-1.025); Urine Blood Negative (Negative); Urine Ketones Negative (Negative); Urine Protein Negative (Neg-Trace)
[2022-12-17 11:39] LABS: Basophils Percent Auto 0.4 % (0-2); Eosinophils Absolute Auto 0.1 X10*3/uL (0.0-0.4); Eosinophils Percent Auto 0.7 % (0-4); Hematocrit 41.9 % (37.0-47.0); Hemoglobin 14.1 g/dl (12.0-16.0); Imm Gran Abs Auto 0.03 X10*3/uL (0.00-0.03); Imm Gran Pct Auto 0.3 % (0.0-0.4); Lymphocytes Percent Auto 20.2 % (20-40); Mean Corpuscular HGB Conc 33.7 g/dl (31.0-35.0); Mean Corpuscular Hemoglobin 31.1 pg (27.0-33.0); Mean Corpuscular Volume 92.3 fL (80.0-98.0); Mean Platelet Volume 10.9 fL (9.4-12.3); Monocytes Absolute Auto 0.6 X10*3/uL (0.1-1.2); Monocytes Percent Auto 6.1 % (2-11); Neutrophils Absolute Auto 7.1 x10*3/uL (2.0-8.3); Neutrophils Percent Auto 72.3 % (45-73); Platelet Count 266 X10*3/uL (160-400); Red Blood Count 4.54 X10*6/uL (4.20-5.50); Red Cell Distribution Width 13.6 % (11.0-16.0); White Blood Count 9.8 X10*3/uL (4.8-10.8)
[2022-12-17 12:13] LABS: Alanine Aminotransferase 16 U/L (0-31); Albumin Level 4.6 g/dL (3.5-5.0); Alkaline Phosphatase 43 U/L (39-117); Anion Gap 11 (12-20); Aspartate Amino Transferase 12 U/L (5-31); Bilirubin Total 0.4 mg/dL (0.0-1.0); Blood Urea Nitrogen 13 mg/dL (9-16); Calcium 8.8 mg/dL (8.4-10.2); Carbon Dioxide 23 mmol/L (22-29); Chloride 112 mmol/L (96-108); Cholesterol 182 mg/dL; Estimated Glomerular Filt Rate > 60; Glucose Fasting 101 mg/dL (60-99); Glucose Random 101 mg/dL (60-115); HDL Cholesterol 48 mg/dL; LDL Cholesterol Calculated 110 mg/dl; Potassium 3.9 mmol/L (3.3-5.1); Sodium 142 mmol/L (135-145); Total Protein 6.9 g/dL (6.5-8.0); Triglycerides 121 mg/dL
[2022-12-17 12:16] LABS: Ferritin 44 ng/mL (10-250)
[2022-12-17 12:35] LABS: Vitamin B12 531 pg/mL (200-900)
[2022-12-19 09:43] LABS: Thyroid Peroxidase Antibodies 1 IU/mL (<9)
== END 2022-12-17 08:42 | disposition home or self-care (01) ==
LOC: HO.HMGCLDS 08:41
PROVIDERS: Absent Provider Internal Medicine Medical Oncology; PCP Nurse Practitioner Family; Visit Provider Nurse Practitioner Family
DX: E04.9 Nontoxic goiter, unspecified (principal); D64.9 Anemia, unspecified; R79.89 Other specified abnormal findings of blood chemistry
CPT/HCPCS: 36415; 80053; 80061; 81003; 82607; 82728; 84443; 85025; 86376

== ENCOUNTER → 2023-01-08 07:42 | Outpatient (BNVA) | payer OTHER, SELFPAY | PROVIDERS: PCP Nurse Practitioner Family; Visit Provider Nurse Practitioner Family | DX: G47.30 Sleep apnea, unspecified (principal); R53.83 Other fatigue; Z99.89 Dependence on other enabling machines and devices | CPT/HCPCS: 99202 ==

== ENCOUNTER → 2023-02-12 09:52 | Outpatient (REF) | payer OTHER, SELFPAY | LOC: HO.SL 09:52 | PROVIDERS: PCP Nurse Practitioner Family; Visit Provider Nurse Practitioner Family | DX: G47.30 Sleep apnea, unspecified (principal); R06.83 Snoring | CPT/HCPCS: 95806 ==

== ENCOUNTER 2023-02-25 11:03 | Outpatient (REF) | payer OTHER, SELFPAY ==
[2023-02-25 11:12] LABS: MANUAL DIFF FLAG NO
[2023-02-25 11:43] LABS: Basophils Absolute Auto 0.1 X10*3/uL (0.0-0.2); Basophils Percent Auto 0.4 % (0-2); Eosinophils Absolute Auto 0.1 X10*3/uL (0.0-0.4); Eosinophils Percent Auto 0.9 % (0-4); Hematocrit 43.1 % (37.0-47.0); Hemoglobin 14.4 g/dl (12.0-16.0); Imm Gran Abs Auto 0.06 X10*3/uL (0.00-0.03); Imm Gran Pct Auto 0.4 % (0.0-0.4); Lymphocytes Absolute Auto 2.4 X10*3/uL (1.2-4.9); Lymphocytes Percent Auto 17.6 % (20-40); Mean Corpuscular HGB Conc 33.4 g/dl (31.0-35.0); Mean Corpuscular Hemoglobin 30.8 pg (27.0-33.0); Mean Corpuscular Volume 92.1 fL (80.0-98.0); Mean Platelet Volume 11.1 fL (9.4-12.3); Monocytes Absolute Auto 0.8 X10*3/uL (0.1-1.2); Monocytes Percent Auto 5.8 % (2-11); Neutrophils Absolute Auto 10.3 x10*3/uL (2.0-8.3); Neutrophils Percent Auto 74.9 % (45-73); Platelet Count 276 X10*3/uL (160-400); Red Blood Count 4.68 X10*6/uL (4.20-5.50); Red Cell Distribution Width 13.3 % (11.0-16.0); White Blood Count 13.8 X10*3/uL (4.8-10.8)
[2023-02-25 11:54] LABS: INTERNATIONAL NORM RATIO 0.9 (0.9-1.1)
[2023-02-25 11:57] LABS: Partial Thromboplastin Time 30.7 SEC (26.0-36.4)
[2023-02-25 12:23] LABS: Iron 54 mcg/dL (30-160); Percent Iron Saturation 16 % (15-50); Total Iron Binding Capacity 347 mcg/dL (228-428); Unsaturated Iron Binding 293 ug/dL
[2023-02-25 12:31] LABS: Ferritin 33 ng/mL (10-250)
== END 2023-02-25 11:04 | disposition home or self-care (01) ==
LOC: HO.LAB 11:03
PROVIDERS: PCP Nurse Practitioner Family; Visit Provider Nurse Practitioner Family
DX: R23.3 Spontaneous ecchymoses (principal); R53.83 Other fatigue
CPT/HCPCS: 36415; 82728; 83540; 85025; 85610; 85730

== ENCOUNTER 2023-03-26 14:30 | Outpatient (AMB) | payer OTHER, SELFPAY ==
--- NOTE | 2023-03-26 14:37 | MHC.PC.OV ---
Vital Signs 03/26/23 14:38 Height 5 ft 7 in BMI Reason not done Patient refused/unable BP 160/78 H Blood Pressure Location Rt brachial Position Sitting Pulse 79 Pulse Source Pulse Oximeter Pulse Oximetry (%) 98 Oxygen Delivery Method Room Air Intake Visit Reasons: HDF ~ Post hospital discharge FU Allergies allopurinol Allergy (Unknown, Verified 03/26/23 14:43) does not remember aloe vera [ALOE VERA] Allergy (Unknown, Verified 03/26/23 14:43) RASH metoclopramide [From REGLAN] Allergy (Unknown, Verified 03/26/23 14:43) LINDA Tobacco use date assessed: 03/26/23 Dental Screening Dental Screen Date: 03/26/23 Did you have a dental visit in the last 12 months?: No Did you have a dental problem in the last 6 months where you did not have access to dental care?: No Was dental information given to patient?: Patient has dentist HPI HDF ~ Post hospital discharge FU HPI Details Pt was seen in the ER on 03/06 c/o bilateral lower back pain. She was given IV toradol and dilaudid which did not help. She was admitted for pain management. Pt had a right SI joint injection. MRI showed multi-level DDD without evidence of spinal stenosis or focal nerve root compression, a central disc extrusion at L4-L5 has improved. She does report radiculopathy down her BLE. She reports that her legs are completely numb. Pt also reports urinary incontinence and saddle numbness. Pt is in tears today due to pain. Explained to pt that she needs to go to the ER due to possible cauda equina. EMS called. [facility] Medical History (Updated 03/26/23 @ 15:04 by JEN Beckwith-) Arthritis of knee, left Bipolar 2 disorder History of abdominal hernia Surgical History (Updated 01/13/23 @ 14:50 by Pete Thrasher MD) H/O hernia repair History of colostomy reversal History of elbow surgery History of left oophorectomy History of partial hypophysectomy History of partial surgical removal of colon History of total right knee replacement Family History Father Hypertension Mother Pre-diabetes Hypertension Sister Cervical cancer Social History (Reviewed 01/13/23 @ 14:38 by Yecenia Partida Household Members: Family Housing: Apartment Are you a primary career development coordinator to a significant other at home: No Do you presently have visiting nurse or other home services: No Alcohol intake: current Alcohol intake frequency: a few times a month Patient Tobacco Use Status: Current everyday Tobacco user Tobacco use type: Cigarette Cigarettes Per Day: 4 Years Smoked: 20 years Packs per year/per ci.00 e-Cigarette/Vaping Use: Currently Using Second Hand Smoke Exposure: No Substance Use Type: Marijuana service: No Current occupational status: disabled Cognitive needs: No Hearing needs: No Vision needs: No Questionnaire Thrive Questionnaire Date Thrive assessed: 12/31/22 LUZ-7 AMB Questionnaire LUZ-7 Date LUZ - 7 assessed: 12/31/22 Source: Developed by Drs. Jeffrey Mcintosh, Robyn Turk, Shahid Benavidez and colleagues, with an educational suhail from [employer]. Review of Systems Const Reports as per HPI Physical exam (Primary Care) Vital Signs: Last Vital Signs Pulse 79 03/26/23 14:38 BP 160/78 H 03/26/23 14:38 Pulse Ox 98 03/26/23 14:38 Oxygen Delivery Method Room Air 03/26/23 14:38 Tobacco/Smoking Status: Tobacco use Status Tobacco use date assessed 03/26/23 03/26/23 14:49 Patient Tobacco Use Status Current everyday Tobacco 03/26/23 14:49 Tobacco use type Cigarette 03/26/23 14:49 e-Cigarette/Vaping Use Currently Using 03/26/23 14:49 Thrive Assessment: Date of Thrive Assessment Date Thrive assessed 12/31/22 03/26/23 14:49 Const Other: using cane General: cooperative Orientation/consciousness: patient oriented x3 Limitations: ambulation with cane Neuro General: patient oriented x3 Psych Appearance: grossly normal Mental Status: mental status grossly normal Speech and movement: Normal speech and movement present Affect: normal affect Attitude: cooperative Thought process: Normal thought process present Thought content: Normal thought content present Insight: Good insight present (Psych) Judgement: Good judgement present (Psych) Assessment and Plan Assessment & Plan (1) Chronic radicular pain of lower back: Code(s): M54.16 - Radiculopathy, lumbar region; G89.29 - Other chronic pain Plan: Referred to neurosurgery, ambulance called, pt transported to hospital Plan The patient agreed to the use of a medical supply technician for this encounter. Scribed for TERESA Novak by Cristy Phelps medical supply technician, on 03/26/2023 at 15:00 EST. Orders: Referrals Neurosurgery Referral G89.29 - Other chronic pain, M54.16 - Radiculopathy, lumbar region Coding Level of Care Code Est Pt Level 3 (84956) Diagnoses Chronic radicular pain of lower back M54.16; G89.29
[2023-03-26 14:38] VITALS: BP 160/78; PULSE 79; O2SAT 98
== END 2023-03-26 16:54 | disposition home or self-care (01) ==
PROVIDERS: PCP Nurse Practitioner Family; Visit Provider Nurse Practitioner Family
DX: M54.16 Radiculopathy, lumbar region (principal); G89.29 Other chronic pain
CPT/HCPCS: 99213

== ENCOUNTER 2023-05-12 10:20 | Outpatient (AMB) | payer OTHER, SELFPAY ==
--- NOTE | 2023-05-12 10:30 | A.OFFPC_ITS ---
Vital Signs 05/12/23 10:31 Height 5 ft 7 in Weight 219 lb 6 oz BMI 34.4 BP 142/100 H Blood Pressure Location Rt brachial Position Sitting Pulse 77 Pulse Source Pulse Oximeter Pulse Oximetry (%) 97 Oxygen Delivery Method Room Air Intake Visit Reasons: 4m f/u / HDF Allergies allopurinol Allergy (Unknown, Verified 05/12/23 10:34) does not remember aloe vera [ALOE VERA] Allergy (Unknown, Verified 05/12/23 10:34) RASH metoclopramide [From REGLAN] Allergy (Unknown, Verified 05/12/23 10:34) LINDA pregabalin [From Lyrica] Adverse Reaction (Intermediate, Verified 05/12/23 10:36) Muscle cramps gabapentin Adverse Reaction (Verified 05/12/23 10:36) Muscle cramps Tobacco use date assessed: 05/12/23 HPI 4m f/u / HDF HPI Details Pt was admitted to the hospital from 03/06-03/16 for acute lower back pain. She was given an SI joint injection and a prednisone taper. Pt was d/c with morphine. She returned to the ER on 03/27 c/o recurrent pain. MRI showed DDD of the lumbar spine with disc bulging, see results. Pt had a follow-up with pain management on 05/01. She was d/c with VNA services. Pt was seen in the ER again on 04/14 c/o worsening pain. She was admitted and started on pain medications. Pt was d/c to rehab and given pain medications. Pt has a follow up with the spine center on 05/15 at 9am. She reports ongoing lower back pain with radicular symptoms down her right buttock and leg with numbness down to her foot. Pt is was taking dilaudid twice a day and is almost out. Will send short duration of percocet. Educated pt on risk of addiction, this is not a long-term med. Pt understands that they can not drive while taking this med, share this med, and to only take as prescribed. [facility] Medical History (Updated 03/26/23 @ 15:04 by JEN Beckwith-) Arthritis of knee, left History of abdominal hernia Bipolar 2 disorder Surgical History (Updated 01/13/23 @ 14:50 by Pete Thrasher MD) History of partial hypophysectomy H/O hernia repair History of colostomy reversal History of elbow surgery History of left oophorectomy History of partial surgical removal of colon History of total right knee replacement Family History Father Hypertension Mother Pre-diabetes Hypertension Sister Cervical cancer Social History Household Members: Family Housing: Apartment Are you a primary client care representative to a significant other at home: No Do you presently have visiting nurse or other home services: No Alcohol intake: current Alcohol intake frequency: a few times a month Patient Tobacco Use Status: Current everyday Tobacco user Tobacco use type: Cigarette Cigarettes Per Day: 4 Years Smoked: 20 years Packs per year/per ci.00 e-Cigarette/Vaping Use: Currently Using Second Hand Smoke Exposure: No Substance Use Type: Marijuana service: No Current occupational status: disabled Cognitive needs: No Hearing needs: No Vision needs: No Questionnaire Thrive Questionnaire Date Thrive assessed: 12/31/22 LUZ-7 AMB Questionnaire LUZ-7 Date LUZ - 7 assessed: 12/31/22 Source: Developed by Drs. Jeffrey Mcintosh, Robyn Turk, Shahid Benavidez and colleagues, with an educational suhail from [employer]. Review of Systems Const Reports as per HPI Physical exam (Primary Care) Vital Signs: Last Vital Signs Pulse 77 05/12/23 10:31 BP 142/100 H 05/12/23 10:31 Pulse Ox 97 05/12/23 10:31 Oxygen Delivery Method Room Air 05/12/23 10:31 BMI result Body Mass Index 34.4 Tobacco/Smoking Status: Tobacco use Status Tobacco use date assessed 05/12/23 05/12/23 10:39 Patient Tobacco Use Status Current everyday Tobacco 05/12/23 10:37 Tobacco use type Cigarette 05/12/23 10:37 e-Cigarette/Vaping Use Currently Using 05/12/23 10:37 Thrive Assessment: Date of Thrive Assessment Date Thrive assessed 12/31/22 05/12/23 10:37 Const General: cooperative Orientation/consciousness: patient oriented x3 Limitations: ambulation with cane Back/Spine/Pelvis Other: severe pain with palpation of right lower back, unable to heel and toe walk, too uncomfortable to get into supine position Neuro General: patient oriented x3 Psych Appearance: grossly normal Mental Status: mental status grossly normal Speech and movement: Normal speech and movement present Affect: normal affect Attitude: cooperative Thought process: Normal thought process present Thought content: Normal thought content present Insight: Good insight present (Psych) Judgement: Good judgement present (Psych) Assessment and Plan Assessment & Plan (1) Chronic radicular pain of lower back: Code(s): M54.16 - Radiculopathy, lumbar region; G89.29 - Other chronic pain Plan The patient agreed to the use of a medical assisting program director for this encounter. Scribed for JEN Novak-ANDRE by Cristy Phelps medical assisting program director, on 05/12/2023 at 10:50 EST. Orders: Orders Complete Blood Count Auto Diff Today E04.9 - Nontoxic goiter, unspecified, E78.5 - Hyperlipidemia, unspecified TSH reflex Free T4 Today E04.9 - Nontoxic goiter, unspecified, E78.5 - Hyperlipidemia, unspecified UA CC w/rflx Micro + Cult Today E04.9 - Nontoxic goiter, unspecified, E78.5 - Hyperlipidemia, unspecified Comprehensive [place]. Panel Fast Today E04.9 - Nontoxic goiter, unspecified, E78.5 - Hyperlipidemia, unspecified Lipid Panel Today E04.9 - Nontoxic goiter, unspecified, E78.5 - Hyperlipidemia, unspecified Medications: New oxycodone-acetaminophen 5-325 mg (Percocet) Partial Fill upon patient request. 1 tab PO Q8H PRN 15 tabs 0RF pain 5 days Coding Level of Care Code Est Pt Level 3 (07557) Diagnoses Chronic radicular pain of lower back M54.16; G89.29
[2023-05-12 10:31] VITALS: BP 142/100; PULSE 77; O2SAT 97; BMI 34.4
== END 2023-05-12 14:41 | disposition home or self-care (01) ==
PROVIDERS: PCP Nurse Practitioner Family; Visit Provider Nurse Practitioner Family
DX: M54.16 Radiculopathy, lumbar region (principal); G89.29 Other chronic pain
CPT/HCPCS: 99213

== ENCOUNTER 2023-05-15 08:48 | Outpatient (AMB) | payer OTHER, SELFPAY ==
--- NOTE | 2023-05-15 09:08 | HO.SPINEOV ---
Intake Intake Visit Reasons: radiculopathy Intake Note: Ms. Bergeron is here today c/o low back pain. MRI done @ [facility]/brought disc. Allergies allopurinol Allergy (Unknown, Verified 05/12/23 10:34) does not remember aloe vera [ALOE VERA] Allergy (Unknown, Verified 05/12/23 10:34) RASH metoclopramide [From REGLAN] Allergy (Unknown, Verified 05/12/23 10:34) LINDA pregabalin [From Lyrica] Adverse Reaction (Intermediate, Verified 05/12/23 10:36) Muscle cramps gabapentin Adverse Reaction (Verified 05/12/23 10:36) Muscle cramps Assessment & Plan Assessment & Plan (1) Chronic radicular pain of lower back: Code(s): M54.16 - Radiculopathy, lumbar region; G89.29 - Other chronic pain (2) Sacroiliitis: Code(s): M46.1 - Sacroiliitis, not elsewhere classified Plan Dear Todd Thank you for referring Mrs Bergeron to our office today. She is a 42-year-old female who has had pain in her low back for about 16 years. Specifically she has pain on the right side of her low back over the SI joint region. It initially started when she was bending down to get something while she was working and stood up and immediately felt something give out and since that time she has had this right-sided low back pain. Initially it started fairly subtle and she would have flare-ups from time to time, but now the flare-ups are getting more severe and more severe. She does occasionally get pain that goes down her right leg that will go into her big toe but primarily the symptoms are on the right side of the low back. It is present all day and every day. Is present when she is sitting or when she is standing. When she shows position will temporarily go away but otherwise it is there most of the time. It is also aggravated with activities and can be present when she sleeps. She has been through chiropractic treatments, physical therapy. Recently she was admitted to the hospital twice and went through acute rehab in a rehabilitation facility for the discomfort. She has been on Percocet, Tylenol, ibuprofen and Flexeril. She has undergone cortisone injections. It sounds like they may have done an SI joint injection at [facility] when she was admitted there back in February. She has an MRI showing degenerative disc disease, worse at L5-S1. She was sent today for surgical evaluation. PMH: She has a history of diverticulitis which resulted in multiple bowel surgeries, colostomy with reversal of colostomy and repair of 6 abdominal hernias. She has a right knee replacement. She is bipolar, B12 deficiency, high cholesterol Social hx: She smokes about 5 cigarettes per day Medications: Percocet, Tylenol, ibuprofen, Flexeril, atorvastatin, Topamax, trazodone Allergies: Gabapentin, Lyrica, Reglan Physical exam: She is awake alert oriented, she walks with a cane, she is uncomfortable standing. Positive finger Gavi test, motor and reflex examination normal. Negative RUIZ testing. Negative compression testing. Imaging review: Lumbar MRI done at [facility] in February 2023 shows what looks like moderate degenerative disc disease at L5-S1, she has mild degenerative disc disease at L3-4 and L4-5. There is some crowding of the lateral recess at L4-5 but no overt compression of the nerves that I can see. The foramen are mildly narrowed at the L5-S1 disc region but no evidence of L5 nerve compression. Impression: 42-year-old female presents with severe incapacitating crippling right-sided low back pain which appears to localize best over the right SI joint. She has [id number] disc degeneration, worse at L5-S1. Her symptoms have been going on now for 16 years, steadily getting worse. I am at a loss to explain the severity of her symptoms based on her lumbar MRI. I do not have any old imaging to compare to see if there is 1 disc which is getting worse more quickly, but overall things are fairly mild and there degeneration and I have a hard time understanding why this would cause her to be admitted to the hospital twice in need rehabilitation to be able to walk again as she describes it. She has been through all the usual conservative treatments. She tells me that she may have had an SI joint injection done when she was admitted at [facility] but can not exactly recall specifically if it was done in the SI joint. I would like to exclude that this is not an SI joint pathology as a does localize well to that region. I would like him to see our colleague Dr Dudley as a 2nd opinion about this. The patient does see [facility] pain management in [place], but I would like his thoughts and to see if you possibly consider another injection to this region before we consider doing anything with her lumbar spine. I am going to get standing flexion-extension x-rays on her today. Also, she tells me she has previous MRIs done at [facility] so when she returns to see us I would like her to have those. Thank you for allowing us to care for your patient. The total time spent with this visit with this patient was 45 minutes reviewing history, physical exam, lumbar imaging review, and implementation of treatment plan or further diagnostic testing Ashish Valle MD,PhD [facility] Orders: Orders XR lumbar spine 4V min Today G89.29 - Other chronic pain, M54.16 - Radiculopathy, lumbar region Referrals Physiatry Referral M46.1 - Sacroiliitis, not elsewhere classified Coding Level of Care Code New Pt Level 4 (91640) Diagnoses Chronic radicular pain of lower back M54.16; G89.29 Sacroiliitis M46.1
== END 2023-05-15 10:44 | disposition home or self-care (01) ==
PROVIDERS: PCP Nurse Practitioner Family; Referring Provider Nurse Practitioner Family; Visit Provider Physician Assistant
DX: M54.16 Radiculopathy, lumbar region (principal); G89.29 Other chronic pain; M46.1 Sacroiliitis, not elsewhere classified
CPT/HCPCS: 99204

== ENCOUNTER 2023-05-15 08:48 | Outpatient (REF) | payer OTHER, SELFPAY | END 2023-05-15 08:49 | disposition home or self-care (01) | LOC: HO.HOSX 08:48 | PROVIDERS: PCP Nurse Practitioner Family; Visit Provider Physician Assistant | DX: Z13.89 Encounter for screening for other disorder (principal) | CPT/HCPCS: 72110 ==

== ENCOUNTER 2023-09-01 13:47 | Outpatient (AMB) | payer OTHER, SELFPAY ==
--- NOTE | 2023-09-01 13:52 | HO.SPINEOV ---
Intake Intake Visit Reasons: surgical consult for SI Joint Intake Note: Ms. Bergeron is here today to discuss possible SI Joint Fusion. Pediatric Cns Required: No Allergies allopurinol Allergy (Unknown, Verified 05/12/23 10:34) does not remember aloe vera [ALOE VERA] Allergy (Unknown, Verified 05/12/23 10:34) RASH metoclopramide [From REGLAN] Allergy (Unknown, Verified 05/12/23 10:34) LINDA pregabalin [From Lyrica] Adverse Reaction (Intermediate, Verified 05/12/23 10:36) Muscle cramps gabapentin Adverse Reaction (Verified 05/12/23 10:36) Muscle cramps Assessment & Plan Assessment & Plan (1) Sacroiliitis: Code(s): M46.1 - Sacroiliitis, not elsewhere classified Plan Dear Dr Dudley, I saw Mrs Bergeron in follow-up today. I appreciate your note and the input on this patient's longstanding pain over her SI joint area. We discussed the fact that she did have some relief from the injection, the lidocaine gave her a day or so of decent relief. This is similar to the response she had when she had the injection done at [facility]. We went through the options of continuing to inject the joint along the middle to lower portion as your note outlines. She saw enough relief from what you did, in combination with the SI joint belt and was reassured by her visit with you that she believes we have found the source were pain is coming from. I discussed the fact with her that pain in the low back in over the SI joint can come for many areas, some of which may be from her degenerative disc, but that since she did have relief with the injection and has a good clinical story/exam to fit with an unstable SI joint that Dr. Valle is willing to offer her a right SI joint fusion with our trans-fasten system. We discussed recovery from surgery, including the fact that she will be nonweightbearing on the right side and lives on the 3rd for. She will get appropriate accommodations and/or will navigate how to do this before surgery so she can be prepared afterwards. She is relatively healthy, so I do not believe she will need any clearance preoperatively from her PCP Todd Rice NP. I will send him a copy of this note. Pt was given risk and benefits of surgery including but not limited to infection, hematoma , nerve injury, persistent pain, as well as the option to continue with conservative treatment and patient wishes to proceed with surgery. Pt is aware they should stop their motrin, aspirin 7 days prior to surgery. All questions were answered to the best of our ability. If there is anything about this patients medical history that we have overlooked or concerns you have about us proceeding with surgery we would appreciate any input you can offer. Total amount of time spent in this visit was 20 minutes in discussion of symptoms, lumbar x-ray, lumbar MRI and sacral x-ray imaging results and subsequent plan of care Ashish Valle MD,PhD [facility] Orders: Orders XR pelvis min 3V Today M46.1 - Sacroiliitis, not elsewhere classified XR lumbar spine 4V min Today M46.1 - Sacroiliitis, not elsewhere classified Coding Level of Care Code Est Pt Level 3 (16864) Diagnoses Sacroiliitis M46.1
== END 2023-09-01 15:22 | disposition home or self-care (01) ==
PROVIDERS: PCP Nurse Practitioner Family; Visit Provider Physician Assistant
DX: M46.1 Sacroiliitis, not elsewhere classified (principal)
CPT/HCPCS: 99213

== ENCOUNTER 2023-09-01 13:47 | Outpatient (REF) | payer OTHER, SELFPAY | END 2023-09-01 13:48 | disposition home or self-care (01) | LOC: HO.HOSX 13:47 | PROVIDERS: PCP Nurse Practitioner Family; Visit Provider Physician Assistant | DX: M46.1 Sacroiliitis, not elsewhere classified (principal) | CPT/HCPCS: 72110; 72190; 99212 ==

== ENCOUNTER 2023-11-12 07:00 | Day surgery (SDC) | payer OTHER, SELFPAY ==
[2023-11-09 14:22] VITALS: BMI 34.3
[2023-11-12] VITALS (12 sets, daily range): BP systolic 102–147; BP diastolic 57–96; PULSE 66–94; RESP 12–20; TEMP 36.2–36.9; O2SAT 94–100; BMI 34.4
--- NOTE | ~2023-11-12 | FL_ITS ---
INDICATION: Intraoperative fluoroscopy. FLUOROSCOPY: Fluoroscopy Time: 44 seconds Dose/air kerma: 37.74 mGy Images saved: 5 FINDINGS: Multiple intraoperative fluoroscopic images are submitted during reported right sacroiliac joint fusion. Correlation with operative report. Evaluation is limited secondary to fluoroscopic technique. IMPRESSION: Intra-operative fluoroscopic imaging provided by radiology during reported right sacroiliac joint fusion. Please refer to operative note for further information.
--- NOTE | 2023-11-12 06:57 | PC.NURSE ---
pt saviri at bedside with patient and director post going over risk from extended stay and admission to being intubated after surgery pt agreeable
[2023-11-12] MEDS: Lactated Ringers 1,000 ML 50 ML IVCONT (07:10)
[2023-11-12 07:24] LABS: UPreg QC Valid YES; Urine Pregnancy NEGATIVE (NEGATIVE)
--- NOTE | 2023-11-12 07:37 | MHC.SHP ---
Pre-Procedural Eval Section A - 24 Hr Update-Section A only Date of Service: 11/12/23 The patient is an INPATIENT: No Changes since office visit: No Cold of Flu in the past 2 weeks, No New Medical Problems, No Changes in Medication and No Patient answered all questions The patient has been examined within 24 hours of the surgical procedure. The History & Physical has been completed within 30 days and I have reviewed it.: No Section B - Complete if H&P > 30 days Chief Complaint: Sacroiliitis, not elsewhere classified Allergies: Allergies Allergy/AdvReac Type Severity Reaction Status Date / Time aloe vera [ALOE VERA] Allergy Intermediate RASH Verified 11/09/23 14:25 metoclopramide [From REGLAN] Allergy Intermediate antsy Verified 11/09/23 14:25 allopurinol Allergy Unknown does not Verified 05/12/23 10:34 remember gabapentin AdvReac Intermediate Muscle Verified 11/09/23 14:25 cramps pregabalin [From Lyrica] AdvReac Intermediate Muscle Verified 05/12/23 10:36 cramps Review of Systems Sugical H&P ROS: Negative: Constitution, Cardiovascular, Respiratory, Neurological, Psychiatric, Hem-Onc, Allergic/Immunologic, Gastrointestinal, Genitourinary, Musculoskeletal, Integumentary, Endocrine and Eyes/Ears/Nose/Throat Exam Surgical H&P Exam: Not Evaluated: HEENT, Not Evaluated: Heart, Not Evaluated: Lungs, Not Evaluated: Extremities, Not Evaluated: Abdomen, Not Evaluated: Skin and Not Evaluated: Neurological Plan Diagnosis/Plan: Unchanged Right SI joint fusion Time Spent With Patient Time: Total time managing care of this patient today __5__ minutes.
[2023-11-12] MEDS: methocarbamoL 750 MG TABLET PO (07:40)
--- NOTE | 2023-11-12 07:41 | PC.NURSE ---
alisha cm speaking to patient concerning her question concerning rehab lives on 3rd floor with girlfriend unsure if can make without asst to home. pt okay to do surgery with crutuches to go home to uses to ambulate okay to proceed
--- NOTE | 2023-11-12 08:02 | HO.ANESPROP2 ---
HPI - Anesthesia Eval Consult details Narrative: Chronic Radicular lower back pain PMF Active Problems Active Problems: All Active Problems (Updated 11/09/23 @ 14:25 by Enid Garrido RN) Sacroiliitis (Acute) Chronic radicular pain of lower back (Acute) Abnormal bruising (Acute) Sleep apnea (Acute) Diverticulosis (Acute) Elevated TSH (Acute) Right knee pain (Acute) Iron deficiency (Acute) B12 deficiency (Acute) Anemia (Acute) Fatigue (Acute) Chronic lower back pain (Acute) Dyslipidemia (Acute) Enlarged thyroid (Acute) Vitamin D deficiency (Acute) Screening for cervical cancer (Acute) Physical exam (Acute) Past Medical History Medical History Elevated cholesterol Anemia Sacroiliitis Sleep apnea Arthritis of knee, left History of abdominal hernia Bipolar 2 disorder Family History Family History Father Hypertension Mother Pre-diabetes Hypertension Sister Cervical cancer Family history of problems with anesthesia: No Surgical History Surgical History History of partial hypophysectomy H/O hernia repair History of colostomy reversal History of elbow surgery History of left oophorectomy History of partial surgical removal of colon History of total right knee replacement History of Problems with Anesthesia: No Social History Social History Household Members: Family Housing: Apartment Are you a primary hospice care transitions coordinator to a significant other at home: No Do you presently have visiting nurse or other home services: No Alcohol intake: current Alcohol intake frequency: does not drink Patient Tobacco Use Status: Former Tobacco user Tobacco use type: Smokeless Tobacco Cigarettes Per Day: 4 Years Smoked: 20 years e-Cigarette/Vaping Use: Currently Using Second Hand Smoke Exposure: No Substance Use Type: Marijuana Are you DNR?: No Advance Directives: No Advance Directives Information Provided: Yes Nutrition Risks: No Nutritional Risk service: No Current occupational status: disabled Cognitive needs: No Hearing needs: No Vision needs: No Meds Allergies Allergy/AdvReac Type Severity Reaction Status Date / Time aloe vera [ALOE VERA] Allergy Intermediate RASH Verified 11/09/23 14:25 metoclopramide [From REGLAN] Allergy Intermediate antsy Verified 11/09/23 14:25 allopurinol Allergy Unknown does not Verified 05/12/23 10:34 remember gabapentin AdvReac Intermediate Muscle Verified 11/09/23 14:25 cramps pregabalin [From Lyrica] AdvReac Intermediate Muscle Verified 05/12/23 10:36 cramps Active Medications: Current Medications Lactated Ringer's (Lr) 1,000 mls @ 50 mls/hr IVCONT .Q20H VIOLETA Last Admin: 11/12/23 07:10 Dose: 50 mls/hr Lactated Ringer's (Lr) 1,000 mls @ 50 mls/hr IVCONT .Q20H [facility] Home Medications Medication Instructions Recorded Confirmed Last Taken Type lorazepam 1 mg tablet 1 mg PO DAILY PRN Pain 04/29/21 01/13/23 11/12/23 05:00 History trazodone 100 mg tablet 200 mg PO BEDTIME 09/19/21 01/13/23 Unknown History nystatin 100,000 unit/gram topical 1 appl topical BID 12/24/21 01/13/23 Unknown History powder topiramate 100 mg tablet 300 mg PO DAILY 01/08/23 01/13/23 Unknown History leuprolide 3.75 mg intramuscular mg IM 03/26/23 Unknown History syringe kit (Lupron Depot) Exam Height,Weight and Vital Signs: Height 5 ft 7 in Weight 99.6 kg Last Vital Signs Temp 98.4 F 11/12/23 07:05 Pulse 76 11/12/23 07:05 Resp 18 11/12/23 07:05 BP 147/96 H 11/12/23 07:05 Pulse Ox 95 11/12/23 07:05 O2 Del Method Room Air 11/12/23 07:05 Pertinent Lab Results Pertinent Lab Results: Laboratory Tests 11/12/23 07:04 Urine Test NEGATIVE Airway Mallampati Class: III TM Dist: >3cm Neck ROM: Full Denture: Upper Loose/Missing/Broken Teeth: Yes Heart: [id number] Lungs: cta b/l Assessment and Plan Final Anesthetic Review Family History of Problems with Anesthesia: No History of Problems with Anesthesia: No NPO: Yes ASA Class: III Final Preanesthetic Review: No Changes in Pt Med Stat, Meds/Allgs Chart Reviewed, Consent Obtained/Reviewed and Anes Risks/Benef Reviewed Patient Risk: Intermediate Procedure Risk: Intermediate Assessment/Block/Sedation in SS: Assess/Block/Sedation-SS Anesthetic Plan Anesthetic Plan: GA Disposition: Standard PACU
--- NOTE | 2023-11-12 09:38 | PM.DS ---
DS: Providers Provider Date of Service: 11/12/23 Date of discharge: 11/12/23 Primary care physician: TERESA Cruz Admitting clinician: Jose Valle DS: Diagnosis Discharge Diagnosis (1) Sacroiliitis: Status: Acute DS: Summary Time Attestation Discharge Coordination Time (in mins): 10 Quality: Safe Use of Opioids Does Pt have an Active Cancer Diagnosis on the Problem List?: No Quality: Stroke Does the patient have a stroke diagnosis?: No Physical Exam Vital Signs: Vital Signs: Last Vital Signs Temp 98.4 F 11/12/23 07:05 Pulse 76 11/12/23 07:05 Resp 18 11/12/23 07:05 BP 147/96 H 11/12/23 07:05 Pulse Ox 95 11/12/23 07:05 O2 Del Method Room Air 11/12/23 07:05 BMI result Body Mass Index 34.4 DS: Data Data Completed and Pending Labs on day of discharge: Laboratory Results - last 24 hr 11/12/23 07:04 Urine Test NEGATIVE Discharge Plan Discharge Patient Disposition: Home, Self-Care Referrals: Todd Rice FNP-BC [Primary Care Provider] - 1 Week Discharge Medications: New oxycodone 5 mg tablet 5 mg PO Q4H PRN (Reason: pain) Qty: 20 0RF Rx Instructions: Partial Fill upon patient request. docusate sodium [Colace] 100 mg capsule 100 mg PO BID Qty: 20 0RF Continued (DME) cpap mask/supplies See Rx Instructions .Route .MEDSUPPLY Qty: 1 3RF Rx Instructions: Mask for CPAP and any other tubing or supplies. ondansetron 8 mg tablet,disintegrating 8 mg PO Q8H PRN (Reason: nausea and vomiting) 30 Days Qty: 90 0RF (DME) BD Integra Syringe 3 mL 25 gauge x 1 syringe See Rx Instructions .Route Qty: 100 1RF Rx Instructions: q 3 weeks cyanocobalamin (vitamin B-12) 1,000 mcg/mL solution 1,000 mcg IM .Q3 weeks 21 Days Qty: 25 2RF Rx Instructions: In office injections (DME) sacroiliac cushion See Rx Instructions .Route .MEDSUPPLY Qty: 1 0RF Rx Instructions: As directed (DME) wedge pillow for under knees See Rx Instructions .Route .MEDSUPPLY Qty: 1 0RF Rx Instructions: As directed scopolamine base 1 mg over 3 days patch 3 day 1 patch transdermal Q3D PRN (Reason: motion sickness) Qty: 24 0RF prochlorperazine maleate [Compazine] 5 mg tablet 5 mg PO BID PRN (Reason: nausea and vomiting) 10 Days Qty: 20 0RF fluticasone propionate [Flonase Allergy Relief] 50 mcg/actuation spray,suspension 2 spray intranasal DAILY Qty: 16 3RF Rx Instructions: administer into each nostril ibuprofen 800 mg tablet 800 mg PO Q8H PRN (Reason: pain) 30 Days Qty: 90 0RF prednisone 50 mg tablet 50 mg PO DAILY 6 Days Qty: 6 0RF oxycodone-acetaminophen [Percocet] 5-325 mg tablet 1 tab PO Q8H PRN (Reason: pain) 14 Days Qty: 28 0RF Rx Instructions: Partial Fill upon patient request. atorvastatin 10 mg tablet 10 mg PO BEDTIME 90 Days Qty: 90 0RF trazodone 100 mg tablet 200 mg PO BEDTIME folic acid 1 mg Tablet 1 mg PO DAILY Qty: 90 4RF lorazepam 1 mg tablet 1 mg PO DAILY PRN (Reason: Pain) nystatin 100,000 unit/gram powder 1 appl topical BID Lupron Depot 3.75 mg syringe kit IM topiramate 100 mg tablet 300 mg PO DAILY Discharge Orders: Discharge Order (Routine); Ordered 11/12/23 Ordered By: Ashish Loja Diet: Advance to usual diet Activity on Discharge: Walk with crutches Activity Restrictions/Additional Instructions: After your SI joint fusion surgery we ask you to observe the following restrictions/guidelines: Activity: It is normal to feel some discomfort as you increase your activity, but that will improve with time. We ask you avoid heavy lifting or acitivities that cause pain. As a general rule, 8lbs is a safe limit for lifting right after surgery. We ask you to stay off your right leg after surgery in order to help the SI joint fuse. Please use crutches or walker. You may return to driving when you are off narcotics (such as vicodin, oxycodone, dilaudid, etc), and you are back to normal functional capacity. If you have any concerns please check with office before driving. Return to work is specific to each patient and each surgery, so please speak with your doctor/PA at first follow up. Please bring paperwork such as FMLA at that time if you need it filled out. Follow up: Please call the office, , after surgery to arrange a 3 week follow up for wound check. Wound Care: Your wound was closed with glue, there are no sutures to remove. You may shower on post op day # 1. We ask that you do not let the water soak the wound. If it does get wet, just towel dry lightly. Please do not scrub your incision or place any type of chemical/ointment on the wound. No tub baths, pools or jacuzzis for one month. If you have any leaking or redness from your wound, or fevers, please call office Medications: We will give you a short supply of narcotics after surgery (usually one weeks worth). If you need more please call the office but do not use more than prescribed. You will need to give our office 48 hours notice if you need narcotics refilled and we do not fill narcotics on weekends or evenings. If you are on a narcotic, it is a good idea to take a stool softener such as colace or senna to avoid constipation If you take blood thinner such as aspirin, Plavix, Coumadin, Effient, Eliquis etc for conditions such as Afib, DVT, Pulmonary embolus, coronary disease, stents etc please speak with your surgeon about specific details as to when you can resume these medications. You can resume NSAIDs on post op day 1 (eg: Motrin, Naproxen, etc).
--- NOTE | 2023-11-12 09:46 | P.OP_ITS ---
Operative Note Operative Note Date of Service: 11/12/23 Narrative: Preoperative diagnosis: Right sacroiliac joint dysfunction Postoperative diagnosis: Same Operative procedure: Right sacroiliac joint fusion with 1 allograft implant Surgeon: Jose Valle MD, PhD Clubhouse Attendant: Ashish Loja PA-C Anesthesia: General Description of procedure: The patient is suffering from right SI joint dysfunction refractory to nonoperative management. The patient has tried and failed all forms of conservative manage med except for an excellent short-term response to a sacroiliac joint injection. The sacroiliac joint was confirmed to be the pain generator after repeated pain blocks. The patient was offered surgical treatment with fixation and arthrodesis of the SI joint. The patient was brought to the operating room and endotracheally intubated. The patient was turned in a prone position on Kian spine table. Prepping and draping was done followed by a time-out. A C-arm was alternately positioned for lateral, oblique oblique and pelvic inlet and outlet projections througout the procedure. Skin markings were made for the anticipated position of the implant. A 2.5 cm longitudinal skin incision was made. A guide pin was inserted in an outlet oblique image for guidance follow-up insertion of dilator and working cannula. This was secured by placing an anchor pin into the ilium. Consideration was taken to cut channels utilizing a series of drills for decortication and internal fixation device placement. The implant was inserted such that it passed through the ilium, across the sacroiliac joint and into the sacrum, thus transfixing the sacroiliac joint. Proper positioning was confirmed on lateral fluoroscopy. The implant was packed with autologous bone collected from remain of the sacrum and ilium. Additional graft material was inserted into the kaur omar void following the implant. The instruments were withdrawn. Upon completion, final images were obtained that showed a satisfactory position of the implant. Hemostasis was done. The incision was closed with an 0 Vicryl to fashion a 3-0 Vicryl subdermal layer after injecting Marcaine. Dermabond was used to approximate the surgeon. All sponge and needle counts were correct. Patient was extubated and transported in a stable condition to recovery room. Estimated blood loss: 20 mL Complications: None Disposition: Discharge to home
[2023-11-12] MEDS: HYDROmorphone HCl 0.5 MG/0.5 ML SYRINGE IVPUSH ×2 (10:00→10:23)
[2023-11-12] MEDS: fentaNYL citrate/PF 100 MCG/2 ML VIAL 50 MCG IVPUSH ×2 (10:08→10:30)
[2023-11-12] MEDS: ondansetron HCL 4 MG/2 ML VIAL IVPUSH (10:36)
[2023-11-12] MEDS: oxyCODONE HCl Immed Release 5 MG TABLET 10 MG PO (10:38)
== END 2023-11-12 12:12 | disposition home or self-care (01) ==
PROVIDERS: Anesthesiology; PCP Nurse Practitioner Family; Visit Provider Neurological Surgery
PROC: (CPT 27279; principal; 2023-11-12 09:10)
DX: M46.1 Sacroiliitis, not elsewhere classified (principal); G89.29 Other chronic pain; M53.3 Sacrococcygeal disorders, not elsewhere classified; M54.50 Low back pain, unspecified; D64.9 Anemia, unspecified; E55.9 Vitamin D deficiency, unspecified; E78.00 Pure hypercholesterolemia, unspecified; G47.30 Sleep apnea, unspecified; F31.81 Bipolar II disorder; Z79.899 Other long term (current) drug therapy; Z79.1 Long term (current) use of non-steroidal anti-inflammatories (NSAID); Z88.8 Allergy status to other drugs, medicaments and biological substances; Z98.890 Other specified postprocedural states; Z87.891 Personal history of nicotine dependence
CPT/HCPCS: 27279; 81025; C1713; J0131; J0690; J1100; J1170; J1885; J2250; J2405; J2704; J3010; L8699

== ENCOUNTER → 2023-11-12 07:00 | Outpatient (BNV) | payer OTHER, SELFPAY | PROVIDERS: PCP Nurse Practitioner Family; Visit Provider Physician Assistant | DX: M46.1 Sacroiliitis, not elsewhere classified (principal) | CPT/HCPCS: 27279; 99499 ==

== ENCOUNTER 2023-11-24 13:11 | Outpatient (AMB) | payer OTHER, SELFPAY ==
--- NOTE | 2023-11-24 12:44 | A.SPINEOV_ITS ---
Intake Intake Visit Reasons: pain sx 11/12/23 Intake Note: Ms. 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 Allergies aloe vera [ALOE VERA] Allergy (Intermediate, Verified 11/09/23 14:25) RASH metoclopramide [From REGLAN] Allergy (Intermediate, Verified 11/09/23 14:25) antsy allopurinol Allergy (Unknown, Verified 05/12/23 10:34) does not remember gabapentin Adverse Reaction (Intermediate, Verified 11/09/23 14:25) Muscle cramps pregabalin [From Lyrica] Adverse Reaction (Intermediate, Verified 05/12/23 10:36) Muscle cramps Assessment & Plan Assessment & Plan (1) Sacroiliitis: Code(s): M46.1 - Sacroiliitis, not elsewhere classified Plan Procedure: R SI joint fusion POD: 12 Nubia comes in today for a follow-up visit after reaching out to our office stating that she has had significant right-sided posterior buttocks pain since her fusion. To recap, her preoperative chief complaint was right-sided low back/posterior buttocks pain and R groin pain. She says the pain is slightly intensified in her R groin. She also has some pain near her incision site. She also endorses a feeling as though her back is going to ?give out.? She states she has had difficulty with ambulation with her crutches since her surgery. She reportedly was unable to navigate her stairs with crutches despite previous counseling by JEAN Loja advising her to practice with crutches to navigate stairs prior to surgery. No new neurological deficits. The patient is currently ambulating with her crutches. The incision site is clean, and the incision is well approximated. No signs of erythema, edema, or fluctuance. No purulent or serosanguineous drainage. It appears as though Nubia's pain is relatively similar to that documented prior to surgery. She does report exacerbation/increased intensity of her pain, however this could have to do with her transition from long-term pain medication regimens. I strongly advised her to continue trying to stay active and ambulate with her crutches. I informed her that after 2-3 weeks postoperative she can begin ambulating without the use of her crutches. She has an appointment on November for us to come back and see us. We reviewed her x-ray imaging today which shows stable placement of instrumentation with no changes from fluoroscopy. Daniel Valle MD,PhD [facility] Orders: Orders XR hip RT min 2V 11/24/23 M46.1 - Sacroiliitis, not elsewhere classified Medications: Refilled oxycodone Partial Fill upon patient request. 5 mg PO Q8H PRN 20 tabs 0RF pain methocarbamol 750 mg PO TID 30 tabs 0RF muscle cramps Coding Level of Care Code Global (03354) Diagnoses Sacroiliitis M46.1
== END 2023-11-24 14:05 | disposition home or self-care (01) ==
PROVIDERS: PCP Nurse Practitioner Family; Visit Provider Physician Assistant
DX: M46.1 Sacroiliitis, not elsewhere classified (principal)
CPT/HCPCS: 99024

== ENCOUNTER 2023-11-24 13:11 | Outpatient (REF) | payer OTHER, SELFPAY ==
--- NOTE | ~2023-11-24 | XR_ITS ---
EXAMINATION: XR HIP, RIGHT CLINICAL INFORMATION: Sacroiliitis not otherwise classified. COMPARISON: September 01, 2023 x-ray pelvis. November 12, 2023 fluoroscopy in OR images. TECHNIQUE: Two views of the right hip. FINDINGS: Right hip alignment preserved. Right hip joint space maintained. Mild degenerative changes right hip. Degenerative changes in the imaged lower lumbar spine. IUD in the pelvis. XR/XR hip RT min 2V IMPRESSION: Mild degenerative changes in the right hip.
== END 2023-11-24 13:12 | disposition home or self-care (01) ==
LOC: HO.HOSX 13:11
PROVIDERS: PCP Nurse Practitioner Family; Visit Provider Physician Assistant
DX: M46.1 Sacroiliitis, not elsewhere classified (principal); Z47.89 Encounter for other orthopedic aftercare
CPT/HCPCS: 73502; 99212

== ENCOUNTER 2023-12-08 14:19 | Outpatient (REF) | payer OTHER, SELFPAY | END 2023-12-08 14:20 | disposition home or self-care (01) | LOC: HO.HOSX 14:19 | PROVIDERS: PCP Nurse Practitioner Family; Visit Provider Physician Assistant | DX: M46.1 Sacroiliitis, not elsewhere classified (principal); Z47.89 Encounter for other orthopedic aftercare; Z98.890 Other specified postprocedural states | CPT/HCPCS: 99212 ==

== ENCOUNTER 2023-12-08 14:19 | Outpatient (AMB) | payer OTHER, SELFPAY ==
--- NOTE | 2023-12-08 15:10 | HO.SPINEOV ---
Intake Intake Visit Reasons: 1st post op Intake Note: Ms. Bergeron is here today for 1st post op. 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 Required: No Allergies aloe vera [ALOE VERA] Allergy (Intermediate, Verified 11/09/23 14:25) RASH metoclopramide [From REGLAN] Allergy (Intermediate, Verified 11/09/23 14:25) antsy allopurinol Allergy (Unknown, Verified 05/12/23 10:34) does not remember gabapentin Adverse Reaction (Intermediate, Verified 11/09/23 14:25) Muscle cramps pregabalin [From Lyrica] Adverse Reaction (Intermediate, Verified 05/12/23 10:36) Muscle cramps Assessment & Plan Assessment & Plan (1) Sacroiliitis: Code(s): M46.1 - Sacroiliitis, not elsewhere classified Plan Ms Bergeron is here proximally 3 weeks out from her SI joint fusion. She has seen some relief of the pain that she had before surgery but has been having new anterior groin pain which is also intense. She is a bit frustrated that she is exchanged 1 pain for another. She has been using her crutches as instructed. She has been taking oxycodone and methocarbamol with some relief. On my exam today, her wound is well healed. She has been walking around with the crutches and seems to be navigating okay. We discussed long-term recovery and allowing the healing process for the fusion to take place before we decide if the surgery was a success or failure. I think she is very nervous about this but I reassured her that it takes time for things to heal. I did refill her oxycodone and methocarbamol but I told her this would be the last refill for surgical healing pain. She wanted to know what she should do down the road if she needs the pain medications further and I defer to her PCP. She has not confident that she will be able to get any medications from them. I will see her back in 1 month with a set of x-rays. At this point she can start to ambulate due rawr-ys-[id number] activity but I have instructed her to continue to avoid doing heavy weight-bearing activity or heavy lifting. Ashish Valle MD, PhD [facility] Orders: Orders XR pelvis min 3V Today JEAN Grimes M46.1 - Sacroiliitis, not elsewhere classified Medications: Changed From oxycodone Partial Fill upon patient request. 5 mg PO Q8H PRN 20 tabs 0RF pain To oxycodone Partial Fill upon patient request. 5 mg PO BID PRN 14 tabs 0RF pain JEAN Vu Refilled oxycodone Partial Fill upon patient request. 5 mg PO BID PRN 14 tabs 0RF pain JEAN Grimes methocarbamol 750 mg PO TID 30 tabs 0RF muscle cramps JEAN Grimes Coding Level of Care Code Global (95145) Diagnoses Sacroiliitis M46.1
== END 2023-12-08 15:44 | disposition home or self-care (01) ==
PROVIDERS: PCP Nurse Practitioner Family; Visit Provider Physician Assistant
DX: M46.1 Sacroiliitis, not elsewhere classified (principal)
CPT/HCPCS: 99024

== ENCOUNTER 2024-01-07 13:15 | Outpatient (AMB) | payer OTHER, SELFPAY ==
--- NOTE | 2024-01-07 13:48 | HO.SPINEOV ---
Intake Visit Reasons: 2nd post op with xray Intake Note: Ms. Bergeron is here today for 2nd post-op appointment with xr-rays. 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 Allergies aloe vera [ALOE VERA] Allergy (Intermediate, Verified 01/07/24 13:49) RASH metoclopramide [From REGLAN] Allergy (Intermediate, Verified 01/07/24 13:49) antsy allopurinol Allergy (Unknown, Verified 01/07/24 13:49) does not remember gabapentin Adverse Reaction (Intermediate, Verified 01/07/24 13:49) Muscle cramps pregabalin [From Lyrica] Adverse Reaction (Intermediate, Verified 01/07/24 13:49) Muscle cramps Assessment & Plan Assessment & Plan (1) Chronic radicular pain of lower back: Code(s): M54.16 - Radiculopathy, lumbar region; G89.29 - Other chronic pain Category: Medical (2) Hip pain: Code(s): M25.559 - Pain in unspecified hip Category: Medical Plan Mrs Bergeron is about 2 months out from her right SI joint fusion. She reports about 50-60% improvement in the preoperative pain, but she is still dealing with a chronic midline lumbosacral pain that just seems to be unrelenting. It bothers her when she sits or when she stands or is doing housework. No radicular pain down the leg. Postoperatively she has had a right anterior groin pain that also seems to be giving her quite a bit of trouble. It started shortly after surgery, I am not sure if it has something to do with the fact that she was on crutches and having to lift her leg because of nonweightbearing restrictions. An x-ray showed just mild degeneration. On my exam though she does have a lot of pain with RUIZ testing. I am not sure if something is irritated in the hip that we just do not see on the x-ray. I am going to send her for an orthopedic evaluation to see if they have any thoughts. I am also going to order a new lumbar MRI as her last 1 was a year ago, and from what I am describing in my original office note compared to what I am seeing on her x-rays today, it looks like there has been worsening of the disc degeneration. From the standpoint of the SI joint fusion implant, I can see it very nicely on the lateral view, but it is a bit obscured on the AP view. I would like to see the patient back after her MRI is completed. [facility]. Ashish Valle MD, PhD [facility] Orders: Orders MR lumbar spine wo con Today G89.29 - Other chronic pain, M54.16 - Radiculopathy, lumbar region Referrals Orthopedics Referral M25.559 - Pain in unspecified hip Coding Level of Care Code Global (59301) Diagnoses Chronic radicular pain of lower back M54.16; G89.29 Hip pain M25.559
== END 2024-01-07 14:26 | disposition home or self-care (01) ==
PROVIDERS: PCP Nurse Practitioner Family; Visit Provider Physician Assistant
DX: M54.16 Radiculopathy, lumbar region (principal); G89.29 Other chronic pain; M25.559 Pain in unspecified hip
CPT/HCPCS: 99024

== ENCOUNTER → 2024-01-07 13:15 | Outpatient (BNVA) | payer OTHER, SELFPAY | PROVIDERS: PCP Nurse Practitioner Family; Visit Provider Physician Assistant ==

== ENCOUNTER 2024-01-07 13:17 | Outpatient (REF) | payer OTHER, SELFPAY ==
--- NOTE | ~2024-01-07 | XR_ITS ---
EXAMINATION: XR SACROILIAC JOINTS CLINICAL INFORMATION: Sacroiliitis COMPARISON: 11/24/2023 TECHNIQUE: 3 views of the sacroiliac joints FINDINGS: Bones and soft tissues are normal. No fracture. Alignment is anatomic. Sacroiliac joint spaces are well-maintained without erosions or surrounding sclerosis. Intrauterine device is seen projecting over the pelvis. XR/XR sacroiliac joint min 3V IMPRESSION: Normal sacroiliac joints.
== END 2024-01-07 13:18 | disposition home or self-care (01) ==
LOC: HO.HOSX 13:17
PROVIDERS: Visit Provider Physician Assistant
DX: M46.1 Sacroiliitis, not elsewhere classified (principal)
CPT/HCPCS: 72202; 99212

== ENCOUNTER 2024-01-21 08:58 | Outpatient (AMB) | payer OTHER, SELFPAY ==
--- NOTE | 2024-01-21 09:09 | A.OFFVIS_ITS ---
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 The patient did undergo fusion of her right sacroiliac joint on 11/12/2023. Since that time her right hip pain has gotten worse. She states that the pain is along the anterior and posterior aspects of her hip. She has done physical therapy exercises which aggravated her pain. She has also tried Tylenol, anti-inflammatory medicines and oxycodone which gave her only mild relief. The patient states that she does have degenerative disc disease in her lumbar spine. She was evaluated in the neurosurgery department here at [facility]. Allergies aloe vera [ALOE VERA] Allergy (Intermediate, Verified 01/21/24 09:16) RASH metoclopramide [From REGLAN] Allergy (Intermediate, Verified 01/21/24 09:16) antsy allopurinol Allergy (Unknown, Verified 01/21/24 09:16) does not remember gabapentin Adverse Reaction (Intermediate, Verified 01/21/24 09:16) Muscle cramps pregabalin [From Lyrica] Adverse Reaction (Intermediate, Verified 01/21/24 09:16) Muscle cramps PFSH Medical History (Updated 01/21/24 @ 09:31 by Angelo Hooks MD) Dyslipidemia Elevated cholesterol Anemia Sacroiliitis Sleep apnea Arthritis of knee, left History of abdominal hernia Bipolar 2 disorder Surgical History History of partial hypophysectomy H/O hernia repair History of colostomy reversal History of elbow surgery History of left oophorectomy History of partial surgical removal of colon History of total right knee replacement Family History Father Hypertension Mother Pre-diabetes Hypertension Sister Cervical cancer Social History Household Members: Family Housing: Apartment Are you a primary neurocritical care physician to a significant other at home: No Do you presently have visiting nurse or other home services: No Alcohol intake: current Alcohol intake frequency: does not drink Patient Tobacco Use Status: Former Tobacco user Tobacco use type: Smokeless Tobacco Cigarettes Per Day: 4 Years Smoked: 20 years e-Cigarette/Vaping Use: Currently Using Second Hand Smoke Exposure: No Substance Use Type: Marijuana service: No Current occupational status: disabled Cognitive needs: No Hearing needs: No Vision needs: No Physical Exam Vital Signs: BMI result Body Mass Index 35.7 Const Other: Well-nourished well-developed very friendly female awake alert and oriented x3 in no acute distress Extrem Other: Bilateral lower extremity examination shows good capillary refill, no skin lesions noted, normal sensation light touch Right hip examination shows slightly decreased range of motion when compared to her left hip, pain with range of motion, increased pain with forward flexion and internal rotation, no tenderness over her bursa Results Reviewed Results Reviewed: X-rays of the patient's right hip show minimal joint space narrowing, no acute bony abnormalities Assessment & Plan Assessment & Plan (1) Right hip pain: Code(s): M25.551 - Pain in right hip Category: Medical Plan Ms. Bergeron presents with right hip pain possibly due to avascular necrosis or a labral tear. Thus, I will send the patient for an MRI arthrogram of her right hip for further evaluation. I will contact her by phone once the MRI results are available. Feel free to call me at any time should questions regarding her orthopedic management arise. Thank you very much for asking me to see this very friendly patient. I spent 21 minutes in reviewing the patient's records and imaging studies, seeing the patient and documenting in the medical record. Orders: Orders MR hip RT w con Today M25.551 - Pain in right hip Coding Level of Care Code New Pt Level 3 (30894) Diagnoses Right hip pain M25.551
[2024-01-21 09:14] VITALS: BMI 35.7
== END 2024-01-21 09:33 | disposition home or self-care (01) ==
PROVIDERS: PCP Nurse Practitioner Family; Visit Provider Orthopaedic Surgery
DX: M25.551 Pain in right hip (principal)
CPT/HCPCS: 99203

== ENCOUNTER → 2024-01-21 08:58 | Outpatient (BNVA) | payer OTHER, SELFPAY | PROVIDERS: PCP Nurse Practitioner Family; Visit Provider Orthopaedic Surgery | DX: M25.551 Pain in right hip (principal) | CPT/HCPCS: 99202 ==

== ENCOUNTER 2024-03-02 15:04 | Observation (INO) | payer OTHER, SELFPAY ==
--- NOTE | ~2024-03-02 | CT_ITS ---
EXAMINATION: CT LUMBAR SPINE WITHOUT CONTRAST CLINICAL INFORMATION: Acute lower back pain. History of spinal surgery. COMPARISON: Lumbar spine radiographs from 09/01/2023. Lumbar spine MRI from 05/22/2021. TECHNIQUE: Multidetector helical imaging of the lumbar spine was obtained without intravenous contrast. Multiple axial reformats and coronal/sagittal reconstructions were created the technologist workstation for review. This CT examination was performed using dose optimization techniques as appropriate, variously including the following: *Automated exposure control. *Adjustment of mA and/or kV according to patient size (this includes techniques or standardized protocols for targeted exams where dose is matched to indication/reason for exam; i.e. extremities or head). *Use of iterative reconstruction technique. DLP: 683 mGy-cm FINDINGS: Minimal left convex curvature of the lumbar spine. Minimal degenerative retrolisthesis of L2 on L3. Otherwise, normal anatomic alignment. No evidence of acute fracture or traumatic subluxation. The vertebral body heights are maintained. Advanced degenerative disc disease at L5-S1. Moderate degenerative disc disease from L2-L5. Mild degenerative disc disease from T11-L2. No suspicious lytic or sclerotic osseous lesions. There is a procedural defect in the right sacral ala. No significant abnormalities of the paraspinal musculature. IUD in place. Perianastomotic mucosal dilation of the sigmoid colon. Otherwise, limited evaluation of the intra-abdominal structures without significant abnormalities. The abdominal aorta is of normal contour and caliber with moderate calcific atherosclerotic disease. AXIAL SPINAL LEVELS: L1-L2: Mild diffuse disc bulge. There is moderate right and mild left facet joint arthropathy. There is no neural foraminal stenosis. There is no demonstrated spinal canal stenosis. L2-L3: Partially calcified moderate diffuse disc bulge with posterior osseous ridging and superimposed central disc protrusion. There is moderate bilateral facet joint arthropathy. There is mild right and no left neural foraminal stenosis. There appears to moderate spinal canal stenosis. L3-L4: Partially confluent moderate diffuse disc bulge with posterior osseous ridging and superimposed central disc protrusion. There is moderate bilateral facet joint arthropathy. There is moderate right and mild left neural foraminal stenosis. There appears to be moderate to severe spinal canal stenosis. L4-L5: Moderate diffuse bulge with posterior osseous ridging. There is moderate to severe bilateral facet joint arthropathy. There is moderate right worse than left neural foraminal stenosis. There is moderate spinal canal stenosis. L5-S1: Prominent diffuse disc bulge with posterior osseous ridging and superimposed central disc protrusion. There is moderate to severe bilateral facet joint arthropathy. There is moderate to severe left and moderate right neural foraminal stenosis. There appears to be mild spinal canal stenosis. CT/CT lumbar spine wo IV con IMPRESSION: 1. No evidence of acute fracture or traumatic subluxation of the lumbar spine. 2. Moderate multilevel degenerative spondyloarthropathy of the lumbar spine as described in detail above. Most notably on this limited exam without intrathecal contrast, there appears to be moderate to severe spinal canal stenoses from L2-L5. Mild spinal canal stenosis at L5-S1. Moderate to severe neural foraminal stenoses from L3-S1.
--- NOTE | 2024-03-02 15:19 | ED.GENADULT ---
HPI - General Adult General Chief complaint: Back Pain/Injury Stated complaint: back pain Time Seen by Provider: 03/02/24 15:19 Source: patient Mode of arrival: ambulatory Limitations: no limitations History of Present Illness ED Provider: Nadira Abraham PA-C HPI narrative: Patient is a 43 year old assigned female at with a history of chronic low back pain and right SI fusion presenting to the emergency department today with left sided low back pain. Patient states that 3 weeks ago she was visiting her partner in [place], put something on a hook, and when she brought her left hand/arm down, she threw her back out. Patient states that she was seen at an ER there where they gave her steroids and anti-inflammatory medications which helped some. Patient states that they offered her short term rehab placement however, given the distance from where she lives, she declined. Patient states that the pain continues to get worse. Patient states that she would like to be somewhere where she can get continued pain management over the next few days. Patient denies any dizziness, lightheadedness, abdominal pain, nausea, vomiting, fever, chills, blurry vision, double vision, loss of vision, chest pain, difficulty breathing, shortness of breath, back pain, night sweats, pain with urination, increased urinary frequency, increased urinary urgency, blood in [his/her/their] urine or stool, syncope or a near syncopal episode, recent trauma or falls, bowel incontinence, bladder incontinence, or any other complaints at this time. Onset (ago): week(s) (3) Location: back and left Radiation: extremity and distal Severity: severe Severity scale (1-10): 9 Quality: stabbing Pain Consistency: constant Relieving factors: none Exacerbating factors: movement Associated symptoms: denies other symptoms Treatments prior to arrival: other (as noted in the HPI) Related Data Home Medications ?Medication ?Instructions ?Recorded ?Confirmed lorazepam 1 mg tablet 1 mg PO DAILY PRN Pain 04/29/21 01/13/23 trazodone 100 mg tablet 200 mg PO BEDTIME 09/19/21 01/13/23 nystatin 100,000 unit/gram topical 1 appl topical BID 12/24/21 01/13/23 powder topiramate 100 mg tablet 300 mg PO DAILY 01/08/23 01/13/23 leuprolide 3.75 mg intramuscular mg IM 03/26/23 syringe kit (Lupron Depot) Previous Rx's ?Medication ?Instructions ?Recorded cpap mask/supplies #1 ea 09/09/21 folic acid 1 mg tablet 1 mg PO DAILY #90 tabs 09/09/22 ondansetron 8 mg disintegrating 8 mg PO Q8H PRN nausea and 01/02/23 tablet vomiting 30 days #90 tabs syringe with needle, safety 3 mL #100 ea 05/21/23 25 gauge x 1 (BD Integra Syringe) sacroiliac cushion #1 ea 05/25/23 wedge pillow for under knees #1 ea 05/25/23 fluticasone propionate 50 2 spray intranasal DAILY #16 grams 07/02/23 mcg/actuation nasal spray,suspension (Flonase Allergy Relief) ibuprofen 800 mg tablet 800 mg PO Q8H PRN pain 30 days #90 09/30/23 tabs prednisone 50 mg tablet 50 mg PO DAILY 6 days #6 tabs 10/06/23 oxycodone-acetaminophen 5 mg-325 1 tab PO Q8H PRN pain 14 days #28 10/31/23 mg tablet (Percocet) tabs crutches #1 ea 11/12/23 docusate sodium 100 mg capsule 100 mg PO BID #20 caps 11/12/23 (Colace) cyanocobalamin (vitamin B-12) 1,000 mcg IM .Q3 weeks 21 days #25 11/26/23 1,000 mcg/mL injection solution mL methocarbamol 750 mg tablet 750 mg PO TID muscle cramps #30 12/08/23 tabs oxycodone 5 mg tablet 5 mg PO BID PRN pain #14 tabs 12/08/23 atorvastatin 20 mg tablet 20 mg PO BEDTIME 90 days #90 tabs 01/03/24 prochlorperazine maleate 5 mg 5 mg PO BID PRN nausea and 01/08/24 tablet (Compazine) vomiting 10 days #20 tabs scopolamine base 1 mg over 3 days 1 patch transdermal Q3D PRN motion 01/08/24 transdermal patch sickness #24 ea Allergies Allergy/AdvReac Type Severity Reaction Status Date / Time aloe vera [ALOE VERA] Allergy Intermediate RASH Verified 03/02/24 15:24 metoclopramide [From REGLAN] Allergy Intermediate antsy Verified 03/02/24 15:24 allopurinol Allergy Unknown does not Verified 03/02/24 15:24 remember gabapentin AdvReac Intermediate Muscle Verified 03/02/24 15:24 cramps pregabalin [From Lyrica] AdvReac Intermediate Muscle Verified 03/02/24 15:24 cramps Review of Systems Constitutional: Constitutional: Reports no additional constitutional complaints, Denies chills, Denies fever(s) and Denies night sweats Eyes: Eyes: Reports no additional eye complaints, Denies blurry vision, Denies change in vision, Denies diplopia, Denies eye discharge, Denies loss of vision and Denies eye pain ENT: Denies dizziness Cardiovascular: Cardiovascular: Reports no additional cardiovascular complaints, Denies chest pain, Denies lightheadedness, Denies Loss of Consciousness and Denies dyspnea Respiratory: Respiratory: Reports no additional respiratory complaints and Denies dyspnea Gastrointestinal: Gastrointestinal: Reports no additional gastrointestinal complaints, Denies abdominal pain, Denies melena, Denies hematochezia, Denies change in bowel habits and Denies change in stool character Genitourinary: Genitourinary: Denies hematuria, Denies urinary frequency, Denies dysuria, Denies urinary incontinence, Denies urinary hesitancy and Denies urinary urgency Musculoskeletal: Musculoskeletal: Reports no additional musculoskeletal complaints, Denies numbness and Denies tingling Comments: left sided low back pain Neurologic: Denies dizziness, Denies loss of vision, Denies numbness and Denies tingling Psychiatric: Psychiatric: Reports no additional psychiatric complaints Endocrine: Endocrine: Reports no additional endocrine complaints Hematologic/Lymphatic: Hematologic/Lymphatic: Reports no additional hematologic/lymphatic complaints Allergic/Immunologic: Allergic/Immunologic: Reports no additional allergic/immunologic complaints [facility] Past Medical History Attestation statement: The following information was validated with the patient. Source: old records reviewed and nursing notes reviewed Medical History Dyslipidemia Elevated cholesterol Anemia Sacroiliitis Sleep apnea Arthritis of knee, left History of abdominal hernia Bipolar 2 disorder Surgical History History of partial hypophysectomy H/O hernia repair History of colostomy reversal History of elbow surgery History of left oophorectomy History of partial surgical removal of colon History of total right knee replacement Family History Family History Father Hypertension Mother Pre-diabetes Hypertension Sister Cervical cancer Social History Social History Household Members: Family Housing: Apartment Are you a primary nurse care manager to a significant other at home: No Do you presently have visiting nurse or other home services: No Alcohol intake: current Alcohol intake frequency: does not drink Patient Tobacco Use Status: Former Tobacco user Tobacco use type: Smokeless Tobacco Cigarettes Per Day: 4 Years Smoked: 20 years e-Cigarette/Vaping Use: Currently Using Second Hand Smoke Exposure: No Substance Use Type: Marijuana Advance Directives: No Advance Directives Information Provided: No service: No Current occupational status: disabled Cognitive needs: No Hearing needs: No Vision needs: No Physical Exam ED Vital Signs: Vital Signs - 24 hr 03/02/24 15:22 03/02/24 18:14 03/02/24 20:33 Temperature 98.3 F Pulse Rate 90 70 66 Respiratory Rate 20 20 20 Blood Pressure 167/113 H 117/70 123/72 Pulse Oximetry 97 97 99 Oxygen Delivery Method Room Air Room Air Room Air BMI result Body Mass Index 38.3 Const General: cooperative, no acute distress, alert and awake Nutritional Appearance: well nourished Orientation/consciousness: patient oriented x3 Limitations: no limitations HENMT Head: Yes normal to inspection and Yes atraumatic Ears: hearing grossly normal bilaterally and external ears normal General nose exam: Normal external nose present, no nasal discharge noted and no epistaxis Face and sinus: Yes normal facial exam, No abrasion and No laceration Mouth: Normal oral and palatal mucosa present, no drooling and no muffled voice Eyes General: appearance normal, both eyes and all related structures Periorbital: periorbital findings normal Eyelids: Yes eyelids normal Conjunctivae: conjunctivae normal Pupils: Equal, round and reactive pupils present EOM: EOMs intact bilaterally Neck Neck: Yes normal visual inspection, Yes full ROM and Yes no lymphadenopathy Chest Chest palpation & inspection: normal inspection of the chest Resp Effort & Inspection: normal respiratory effort and able to speak in complete sentences GI Inspection: Yes normal to inspection Back/Spine/Pelvis Other: pain in the left low back with and without movement Cervical Spine: normal cervical lordosis and cervical ROM normal Neuro General: patient oriented x3 and moves all extremities Cranial nerves: Yes Equal, round and reactive pupils present Cognition (Neuro): normal cognition Extrem General: Yes normal to inspection, Yes full ROM and Yes capillary refill normal Psych Appearance: grossly normal Mental Status: mental status grossly normal Affect: normal affect Attitude: cooperative Thought process: Normal thought process present Thought content: Normal thought content present Insight: Good insight present (Psych) Course Reevaluation(s) Reevaluation #1: CT scan showing no acute fracture or subluxation. 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 As well as moderate to severe spinal canal stenosis. Spoke to hospitalist who accepts transfer of care for intractable back pain. Patient is agreeable. Time: 20:10 Medications Administered Generic Name Dose Route Start Last Admin Trade Name Freq PRN Reason Stop Dose Admin Methocarbamol 750 mg 03/02/24 21:00 03/02/24 20:47 Methocarbamol 750 Mg Tablet PO 750 mg TID VIOLETA Administration Oxycodone HCl 5 mg 03/02/24 20:32 03/02/24 20:50 Oxycodone Hcl Immed Release 5 Mg Tablet PO 5 mg Q6H PRN Administration Pain, Moderate(Pain Scale 4-6) Discontinued Medications Generic Name Dose Route Start Last Admin Trade Name Freq PRN Reason Stop Dose Admin Diazepam 2.5 mg 03/02/24 15:29 03/02/24 15:47 Diazepam 10 Mg/2 Ml Cartridge IVPUSH 03/02/24 15:30 2.5 mg STAT STA Administration Hydromorphone HCl 1 mg 03/02/24 15:29 03/02/24 15:47 Hydromorphone Hcl 1 Mg/Ml Syringe IVPUSH 03/02/24 15:30 1 mg ONCE ONE Administration Protocol Hydromorphone HCl 2 mg 03/02/24 17:59 03/02/24 18:16 Hydromorphone Hcl 2 Mg/Ml Vial IVPUSH 03/02/24 18:00 2 mg ONCE ONE Administration Protocol Ketorolac Tromethamine 15 mg 03/02/24 15:29 03/02/24 15:47 Ketorolac Tromethamine 15 Mg/Ml Vial IM 03/02/24 15:30 15 mg ONCE ONE Administration Methylprednisolone Sodium Succinate 60 mg 03/02/24 15:29 03/02/24 15:46 Methylprednisolone Sod Succ 125 Mg/2 Ml Vial IVPUSH 03/02/24 15:30 60 mg ONCE ONE Administration Medical Decision Making Medical Decision Making [facility] Narrative: Patient is a 43 year old assigned female at with a history of chronic low back pain and right SI fusion presenting to the emergency department today with left sided low back pain. Patient's physical exam showed an individual in obvious pain. Patient's blood work was unremarkable. Patient's urine is pending. Patient's CT lumbar spine is pending. I explained my physical exam findings as well as all test results to the patient. I answered all questions asked by the patient. Patient received multiple doses of pain medications while in the department which she stated helped but upon each re-evaluation, she did not feel well enough to go home. Patient signed out to evening TARSHA pending CT read and UA results. Differential Diagnosis Differential Diagnoses: The differential diagnosis associated with the presentation includes Low back pain Acute on chronic low back pain Herniated disc Sciatica Left SI joint dysfunction Admission/Observation Consideration of admission/observation: Escalation of care including admission/observation considered Patient's disposition will be determined after CT of the lumbar spine is read, her UA has resulted, and her pain has either been controlled or not. Lab Data [facility] Lab Attestation statement: I reviewed the patient's lab results. My interpretation of these results are in the [facility] Rationale portion of this note. 03/02/24 15:38 03/02/24 16:20 Labs: Lab Results 03/02/24 03/02/24 03/02/24 Range/Units 15:38 16:20 20:37 WBC 9.0 (4.8-10.8) X10*3/uL RBC 5.00 (4.20-5.50) X10*6/uL Hgb 15.0 (12.0-16.0) g/dl Hct 45.0 (37.0-47.0) % MCV 90.0 (80.0-98.0) fL MCH 30.0 (27.0-33.0) pg MCHC 33.3 (31.0-35.0) g/dl RDW 13.4 (11.0-16.0) % Plt Count 313 (160-400) X10*3/uL MPV 9.9 (9.4-12.3) fL Immature Gran % (Auto) 0.4 (0.0-0.4) % Neut % (Auto) 68.4 (45-73) % Lymph % (Auto) 22.6 (20-40) % [place] % (Auto) 7.9 (2-11) % Eos % (Auto) 0.4 (0-4) % Baso % (Auto) 0.3 (0-2) % Lymph # (Auto) 2.0 (1.2-4.9) X10*3/uL [place] # (Auto) 0.7 (0.1-1.2) X10*3/uL Eos # (Auto) 0.0 (0.0-0.4) X10*3/uL Baso # (Auto) 0.0 (0.0-0.2) X10*3/uL Abs Immat Gran (auto) 0.04 H (0.00-0.03) X10*3/uL Absolute Neuts (auto) 6.2 (2.0-8.3) x10*3/uL Absolute Nucleated RBC 0.000 (0.0-0.012) X10*3/uL Nucleated RBC % (auto) 0.0 (0.0-0.2) /100WBC ESR 7 (0-20) MM/HR Sodium 142 (135-145) mmol/L Potassium 4.1 (3.3-5.1) mmol/L Chloride 110 H (96-108) mmol/L Carbon Dioxide 24 (22-29) mmol/L Anion Gap 12 (12-20) BUN 13 (9-16) mg/dL Creatinine 0.80 (0.5-1.4) mg/dL Estim Creat Clear Calc 106.4 Estimated GFR > 60 Random Glucose 91 (60-115) mg/dL Calcium 9.4 (8.4-10.2) mg/dL Total Bilirubin 0.2 (0.0-1.0) mg/dL AST 19 (5-31) U/L ALT 23 (0-31) U/L Alkaline Phosphatase 32 L (39-117) U/L C-Reactive Protein 0.24 (< or = 0.50) mg/dL Total Protein 7.4 (6.5-8.0) g/dL Albumin 4.5 (3.5-5.0) g/dL Urine Color Dark Yellow Urine Appearance Clear Urine pH 5.5 (5.0-9.0) Ur Specific [place] >= 1.030 H (1.005-1.025) Urine Protein Trace (Neg-Trace) mg/dL Urine Glucose (UA) Negative (Negative) mg/dL Urine Ketones Negative (Negative) mg/dL Urine Blood Negative (Negative) Urine Nitrite Negative (Negative) Ur Leukocyte Esterase Negative (Negative) Critical Care Time Critical Care Time Critical Care Time: Yes Total Critical Care Time: 34 Attestation: I spent 34 minutes of Critical Care Time with this patient. This does not include time spent on separately reported billable procedures. Discharge Plan Discharge Clinical Impression: Back pain, Intractable back pain Patient Disposition: Admitted As Inpatient Prescriptions: No Action (DME) cpap mask/supplies See Rx Instructions .Route .MEDSUPPLY Qty: 1 3RF Rx Instructions: Mask for CPAP and any other tubing or supplies. ondansetron 8 mg tablet,disintegrating 8 mg PO Q8H PRN (Reason: nausea and vomiting) 30 Days Qty: 90 0RF (DME) BD Integra Syringe 3 mL 25 gauge x 1 syringe See Rx Instructions .Route Qty: 100 1RF Rx Instructions: q 3 weeks (DME) sacroiliac cushion See Rx Instructions .Route .MEDSUPPLY Qty: 1 0RF Rx Instructions: As directed (DME) wedge pillow for under knees See Rx Instructions .Route .MEDSUPPLY Qty: 1 0RF Rx Instructions: As directed fluticasone propionate [Flonase Allergy Relief] 50 mcg/actuation spray,suspension 2 spray intranasal DAILY Qty: 16 3RF Rx Instructions: administer into each nostril ibuprofen 800 mg tablet 800 mg PO Q8H PRN (Reason: pain) 30 Days Qty: 90 0RF prednisone 50 mg tablet 50 mg PO DAILY 6 Days Qty: 6 0RF oxycodone-acetaminophen [Percocet] 5-325 mg tablet 1 tab PO Q8H PRN (Reason: pain) 14 Days Qty: 28 0RF Rx Instructions: Partial Fill upon patient request. (DME) crutches See Rx Instructions .Route .MEDSUPPLY Qty: 1 0RF Rx Instructions: crutches dx: sacroiliac fusion patient non weight bearing right leg cyanocobalamin (vitamin B-12) 1,000 mcg/mL solution 1,000 mcg IM .Q3 weeks 21 Days Qty: 25 2RF Rx Instructions: In office injections atorvastatin 20 mg tablet 20 mg PO BEDTIME 90 Days Qty: 90 0RF prochlorperazine maleate [Compazine] 5 mg tablet 5 mg PO BID PRN (Reason: nausea and vomiting) 10 Days Qty: 20 0RF scopolamine base 1 mg over 3 days patch 3 day 1 patch transdermal Q3D PRN (Reason: motion sickness) Qty: 24 0RF trazodone 100 mg tablet 200 mg PO BEDTIME folic acid 1 mg Tablet 1 mg PO DAILY Qty: 90 4RF docusate sodium [Colace] 100 mg capsule 100 mg PO BID Qty: 20 0RF lorazepam 1 mg tablet 1 mg PO DAILY PRN (Reason: Pain) nystatin 100,000 unit/gram powder 1 appl topical BID Lupron Depot 3.75 mg syringe kit IM topiramate 100 mg tablet 300 mg PO DAILY oxycodone 5 mg tablet 5 mg PO BID PRN (Reason: pain) Qty: 14 0RF Rx Instructions: Partial Fill upon patient request. methocarbamol 750 mg tablet 750 mg PO TID Qty: 30 0RF Print Language: Pashto
[2024-03-02 15:22] VITALS: BP 167/113; PULSE 90; RESP 20; O2SAT 97; BMI 38.3
[2024-03-02 15:42] LABS: MANUAL DIFF FLAG NO
[2024-03-02 15:43] LABS: Basophils Percent Auto 0.3 % (0-2); Eosinophils Percent Auto 0.4 % (0-4); Imm Gran Abs Auto 0.04 X10*3/uL (0.00-0.03); Imm Gran Pct Auto 0.4 % (0.0-0.4); Lymphocytes Percent Auto 22.6 % (20-40); Mean Corpuscular HGB Conc 33.3 g/dl (31.0-35.0); Mean Platelet Volume 9.9 fL (9.4-12.3); Monocytes Absolute Auto 0.7 X10*3/uL (0.1-1.2); Monocytes Percent Auto 7.9 % (2-11); Neutrophils Absolute Auto 6.2 x10*3/uL (2.0-8.3); Neutrophils Percent Auto 68.4 % (45-73); Platelet Count 313 X10*3/uL (160-400); Red Cell Distribution Width 13.4 % (11.0-16.0)
[2024-03-02] MEDS: methylPREDNISolone Sod Succ 125 MG/2 ML VIAL 60 MG IVPUSH (15:46)
[2024-03-02] MEDS: diazePAM 10 MG/2 ML CARTRIDGE 2.5 MG IVPUSH (15:47)
[2024-03-02] MEDS: Ketorolac Tromethamine 15 MG/ML VIAL IM (15:47)
[2024-03-02] MEDS: HYDROmorphone HCl 1 MG/ML SYRINGE IVPUSH (15:47)
[2024-03-02 16:35] LABS: Erythrocyte Sedimentation Rate 7 MM/HR (0-20)
[2024-03-02 16:45] LABS: Alanine Aminotransferase 23 U/L (0-31); Albumin Level 4.5 g/dL (3.5-5.0); Alkaline Phosphatase 32 U/L (39-117); Anion Gap 12 (12-20); Aspartate Amino Transferase 19 U/L (5-31); Bilirubin Total 0.2 mg/dL (0.0-1.0); Blood Urea Nitrogen 13 mg/dL (9-16); C Reactive Protein 0.24 mg/dL (< or = 0.50); Calcium 9.4 mg/dL (8.4-10.2); Carbon Dioxide 24 mmol/L (22-29); Chloride 110 mmol/L (96-108); Creatinine Clr Calc Pharmacy 106.4; Estimated Glomerular Filt Rate > 60; Glucose Random 91 mg/dL (60-115); Potassium 4.1 mmol/L (3.3-5.1); Sodium 142 mmol/L (135-145); Total Protein 7.4 g/dL (6.5-8.0)
[2024-03-02 18:14] VITALS: BP 117/70; PULSE 70; RESP 20; O2SAT 97
[2024-03-02] MEDS: HYDROmorphone HCl 2 MG/ML VIAL IVPUSH (18:16)
[2024-03-02 20:33] VITALS: BP 123/72; PULSE 66; RESP 20; TEMP 36.8; O2SAT 99
--- NOTE | 2024-03-02 20:33 | PM.IMHP ---
History of Present Illness Date of Service: 03/02/24 Attending physician on admission: Skyler Bellamy Chief Complaint: back pain 43-year-old female with history of chronic low back pain and right SI fusion, dyslipidemia, mood disorder presents to the ED for evaluation of intractable low back pain. She reports 3 weeks ago, while visiting her partner in [place], she placed an object on a hook and when she brought her left hand/arm down by her side she felt sudden tightening and severe pain in the left low back. Since then the pain has been constant and was briefly relieved by a 2 week course of prednisone but states over the past week, the pain has been worsening though denies any new injury. She states she has chronic pain in the right hip/groin and chronic paresthesias in the left buttock. She denies any radiation of the pain but does feel the left lower extremity is weak. No paresthesias in the extremities. No saddle anesthesia, bowel/bladder dysfunction (though does mention occasional stress incontinence that is not new). She does follow with Neurosurgery and underwent right SI joint fusion in 10/2023 and reports she has now been referred to Orthopedic surgery for an arthrogram of the right hip. She did also have recent MRI of the lumbar spine which showed multilevel degenerative changes notably at L3-4 there is a moderate size central and right paracentral disc protrusion as well as bilateral facet hypertrophy narrowing the right lateral recess possibly compromising the descending right L4 nerve root. At L5-S1 there is a moderate size central and right paracentral disc perfusion as well as bilateral facet hypertrophy but no central canal stenosis. At L2-3 and L4-5 there is mild central canal stenosis. In the ED today did have CT of the lumbar spine showing the same multilevel degenerative changes but negative for any acute fracture or traumatic subluxation of the lumbar spine. In the ED has received multiple doses IV hydromorphone, ketorolac, diazepam, and methylprednisolone. Unfortunately, pain does persist, currently rated as a 9/10. Review of Systems Review of Systems: Yes all other systems are reviewed and are negative [facility] Medical History Dyslipidemia Elevated cholesterol Anemia Sacroiliitis Sleep apnea Arthritis of knee, left History of abdominal hernia Bipolar 2 disorder Family History Father Hypertension Mother Pre-diabetes Hypertension Sister Cervical cancer Surgical History History of partial hypophysectomy H/O hernia repair History of colostomy reversal History of elbow surgery History of left oophorectomy History of partial surgical removal of colon History of total right knee replacement Social History Household Members: Family Housing: Apartment Are you a primary healthcare network consultant to a significant other at home: No Do you presently have visiting nurse or other home services: No Alcohol intake: current Alcohol intake frequency: does not drink Patient Tobacco Use Status: Former Tobacco user Tobacco use type: Smokeless Tobacco Cigarettes Per Day: 4 Years Smoked: 20 years e-Cigarette/Vaping Use: Currently Using Second Hand Smoke Exposure: No Substance Use Type: Marijuana Advance Directives: No Advance Directives Information Provided: No service: No Current occupational status: disabled Cognitive needs: No Hearing needs: No Vision needs: No Meds Allergies Allergy/AdvReac Type Severity Reaction Status Date / Time aloe vera [ALOE VERA] Allergy Intermediate RASH Verified 03/02/24 15:24 metoclopramide [From REGLAN] Allergy Intermediate antsy Verified 03/02/24 15:24 allopurinol Allergy Unknown does not Verified 03/02/24 15:24 remember gabapentin AdvReac Intermediate Muscle Verified 03/02/24 15:24 cramps pregabalin [From Lyrica] AdvReac Intermediate Muscle Verified 03/02/24 15:24 cramps Home Medications ?Medication ?Instructions ?Recorded ?Confirmed ?Last Taken ?Type lorazepam 1 mg tablet 1 mg PO DAILY PRN Pain 04/29/21 01/13/23 11/12/23 05:00 History trazodone 100 mg tablet 200 mg PO BEDTIME 09/19/21 01/13/23 Unknown History nystatin 100,000 unit/gram topical 1 appl topical BID 12/24/21 01/13/23 Unknown History powder topiramate 100 mg tablet 300 mg PO DAILY 01/08/23 01/13/23 Unknown History leuprolide 3.75 mg intramuscular mg IM 03/26/23 Unknown History syringe kit (Lupron [place]) Physical Exam Vital Signs and Narrative: Vital Signs: Last Vital Signs Pulse 70 03/02/24 18:14 Resp 20 03/02/24 18:14 BP 117/70 03/02/24 18:14 Pulse Ox 97 03/02/24 18:14 O2 Del Method Room Air 03/02/24 18:14 BMI result Body Mass Index 38.3 Constitutional - Awake and Alert, No apparent distress Eyes - PERRLA, EOMI Cardiovascular - S1S2, RRR, No edema Respiratory - Normal lung expansion, Normal respiratory effort, No respiratory distress, CTA bilaterally Gastrointestinal - NT / ND; +BS; No rebound or guarding Extremities - no calf tenderness bilaterally, no swelling MSK- midline ttp at L2-S1 with left sided paraspinal ttp and pain over the B/L Si joints Skin - Warm/Dry Neurological - Alert & oriented x3. Symmetric 2+ patellar reflexes, downgoing babinski, 4/5 strength LLE, 5/5 strength RLE Psychological - Appropriate affect Results Labs 03/02/24 15:38 03/02/24 16:20 Labs: Laboratory Results - last 24 hr 03/02/24 03/02/24 15:38 16:20 MCV 90.0 MCH 30.0 MCHC 33.3 RDW 13.4 Plt Count 313 MPV 9.9 Immature Gran % (Auto) 0.4 Neut % (Auto) 68.4 Lymph % (Auto) 22.6 [place] % (Auto) 7.9 Eos % (Auto) 0.4 Baso % (Auto) 0.3 Lymph # (Auto) 2.0 [place] # (Auto) 0.7 Eos # (Auto) 0.0 Baso # (Auto) 0.0 Abs Immat Gran (auto) 0.04 H Absolute Neuts (auto) 6.2 Absolute Nucleated RBC 0.000 Nucleated RBC % (auto) 0.0 ESR 7 Anion Gap 12 Estim Creat Clear Calc 106.4 Estimated GFR > 60 Random Glucose 91 Calcium 9.4 Total Bilirubin 0.2 AST 19 ALT 23 Alkaline Phosphatase 32 L C-Reactive Protein 0.24 Total Protein 7.4 Albumin 4.5 Imaging Radiologist's Impressions: Impressions Lumbar Spine CT 03/02/24 16:35 IMPRESSION: 1. No evidence of acute fracture or traumatic subluxation of the lumbar spine. 2. Moderate multilevel degenerative spondyloarthropathy of the lumbar spine as described in detail above. Most notably on this limited exam without intrathecal contrast, there appears to be moderate to severe spinal canal stenoses from L2-L5. Mild spinal canal stenosis at L5-S1. Moderate to severe neural foraminal stenoses from L3-S1. Assessment and Plan (1) Intractable back pain: Status: Acute Plan 43-year-old female with history of chronic low back pain and right SI fusion, dyslipidemia, mood disorder to be observed for intractable low back pain # acute on chronic intractable low back pain -MRI of the lumbar spine 12/2023 which showed multilevel degenerative changes notably at L3-4 there is a moderate size central and right paracentral disc protrusion as well as bilateral facet hypertrophy narrowing the right lateral recess possibly compromising the descending right L4 nerve root. At L5-S1 there is a moderate size central and right paracentral disc perfusion as well as bilateral facet hypertrophy but no central canal stenosis. At L2-3 and L4-5 there is mild central canal stenosis. In the ED today did have CT of the lumbar spine showing the same multilevel degenerative changes but negative for any acute fracture or traumatic subluxation of the lumbar spine. -No alarm symptoms -IV methylprednisolone 60 mg b.i.d. -Robaxin t.i.d. -oxycodone and hydromorphone p.r.n. using pain scale -physical therapy consult -outpatient follow-up with Neurosurgery/Orthopedic surgery #HLD -statin #Hormone suppression -on Lupron # mood disorder -continue home medications # severe obesity with BMI greater than 38 -weight loss efforts encouraged DVT prophylaxis- SCPs/early ambulation Full code Quality Stroke Does the patient have a stroke diagnosis?: No VTE Prior VTE?: No VTE Risk Level:: Medical - moderate - high VTE Device Contraindication: N/A - Device Ordered VTE Drug Contraindication: Treatment Not Indicated
[2024-03-02 20:45] LABS: Appearance Urine Clear; Color Urine Dark Yellow; Glucose Urine UA Negative (Negative); Leukocyte Esterase Urine Negative (Negative); Nitrite Urine Negative (Negative); PH 5.5 (5.0-9.0); Specific Gravity - Urine >= 1.030 (1.005-1.025); Urine Blood Negative (Negative); Urine Ketones Negative (Negative); Urine Protein Trace mg/dL (Neg-Trace)
[2024-03-02] MEDS: methocarbamoL 750 MG TABLET PO (20:47)
[2024-03-02] MEDS: oxyCODONE HCl Immed Release 5 MG TABLET PO (20:50)
[2024-03-02 22:10] VITALS: BP 123/80; PULSE 71; RESP 20
[2024-03-02] MEDS: HYDROmorphone HCl 1 MG/ML SYRINGE 0.5 MG IVPUSH (22:12)
--- NOTE | 2024-03-02 22:20 | PHA.MEDREC ---
Pharmacy Consult ? Medication Reconciliation Pharmacy has completed the medication reconciliation. Medications confirmed with patient. She injects vitamin b-12 every 3 weeks and her last dose was Thursday02/22/2024. She also states she takes the Scopolamine patches after she does the injection for about a week from the side effects of the injection.
[2024-03-03] VITALS: BP 107/61; PULSE 75; RESP 16; TEMP 36.8; O2SAT 97
[2024-03-03 02:07] VITALS: BP 126/64; PULSE 72; RESP 16; TEMP 36.9; O2SAT 98
[2024-03-03] MEDS: Melatonin 3 MG TABLET 6 MG PO (02:09)
[2024-03-03] MEDS: HYDROmorphone HCl 1 MG/ML SYRINGE 0.5 MG IVPUSH ×5 (02:09→20:13)
[2024-03-03 02:19] VITALS: BMI 38.3
[2024-03-03] MEDS: oxyCODONE HCl Immed Release 5 MG TABLET PO ×2 (03:13→09:24)
[2024-03-03] MEDS: Acetaminophen 325 MG TABLET 650 MG PO (03:13)
[2024-03-03] MEDS: methylPREDNISolone Sod Succ 125 MG/2 ML VIAL 60 MG IVPUSH ×2 (03:14→15:01)
[2024-03-03 04:00] VITALS: BP 122/72; PULSE 75; RESP 16; TEMP 37.2; O2SAT 98
[2024-03-03 06:20] LABS: Anion Gap 15 (12-20); Blood Urea Nitrogen 14 mg/dL (9-16); Calcium 8.6 mg/dL (8.4-10.2); Carbon Dioxide 17 mmol/L (22-29); Chloride 109 mmol/L (96-108); Creatinine Clr Calc Pharmacy 115.1; Estimated Glomerular Filt Rate > 60; Glucose Random 138 mg/dL (60-115); Sodium 137 mmol/L (135-145)
[2024-03-03 07:19] VITALS: BP 125/68; PULSE 74; RESP 18; TEMP 36.4; O2SAT 95
[2024-03-03] MEDS: methocarbamoL 750 MG TABLET PO ×3 (08:42→20:12)
[2024-03-03] MEDS: 0.9 % Sodium Chloride Flush 3 ML SYRINGE IVFLUSH ×3 (08:43→20:16)
--- NOTE | 2024-03-03 09:44 | HO.PM.IMPN ---
Subjective Subjective Date of Service: 03/03/24 Interval History: f/u acute on chronic back, has history of DJD of back, sacroilitis, followed by Neurosurgery still c/o pain, has nu uniary or stool or incontience. She is ambulating independently in the [place] Physical Exam Vital Signs: Vital Signs: Last Vital Signs Temp 97.5 F 03/03/24 07:19 Pulse 74 03/03/24 07:19 Resp 18 03/03/24 07:19 BP 125/68 03/03/24 07:19 Pulse Ox 95 03/03/24 07:19 O2 Del Method Room Air 03/03/24 07:19 BMI result Body Mass Index 38.3 General: AO X 3, no acute distress Resp: CTA bilateral CVS: S1,S2,RRR GI: +BS, NT, no distention Skin: No rash Neuro: motor grossly intact, 2+ patellar reflexes , 4/5 strength LLE, 5/5 strength RLE Psych: appropriate affect Objective Data Active Medications Acetaminophen (Acetaminophen 325 Mg Tablet) 650 mg PO Q6H PRN PRN Reason: Pain, Mild (Pain Scale 1-3), fever or headache Last Admin: 03/03/24 03:13 Dose: 650 mg Documented By: RAFA Atorvastatin Calcium (Atorvastatin Calcium 20 Mg Tablet) 20 mg PO BEDTIME VIOLETA Calcium Carbonate (Calcium Carbonate 750 Mg Tab.Chew) 750 mg PO Q4H PRN PRN Reason: Heartburn Cyanocobalamin (Cyanocobalamin (Vitamin B-12) 1,000 Mcg/Ml Vial) 1,000 mcg IM Q21D VIOLETA Escitalopram Oxalate (Escitalopram Oxalate 20 Mg Tablet) 20 mg PO BEDTIME VIOLETA Fluticasone Propionate (Fluticasone Propionate Nasal 16 Gm [place]) 2 spray NOSTRIL-B DAILY PRN PRN Reason: Allergies Hydromorphone HCl (Hydromorphone Hcl 1 Mg/Ml Syringe) 0.5 mg IVPUSH Q4H PRN; Protocol PRN Reason: Pain, Severe (Pain Scale 7-10) Last Admin: 03/03/24 06:11 Dose: 0.5 mg Documented By: RAFA Magnesium Hydroxide (Milk Of Magnesia 30 Ml Oral.Susp) 30 ml PO DAILY PRN PRN Reason: Constipation Melatonin (Melatonin 3 Mg Tablet) 6 mg PO BEDTIME PRN PRN Reason: Insomnia Last Admin: 03/03/24 02:09 Dose: 6 mg Documented By: RAFA Methocarbamol (Methocarbamol 750 Mg Tablet) 750 mg PO TID [facility] Last Admin: 03/03/24 08:42 Dose: 750 mg Documented By: MEL Methylprednisolone Sodium Succinate (Methylprednisolone Sod Succ 125 Mg/2 Ml Vial) 60 mg IVPUSH Q12H [facility] Last Admin: 03/03/24 03:14 Dose: 60 mg Documented By: RAFA Non-Formulary Medication (Norethindrone Acetate) 5 mg PO BEDTIME [facility] Nystatin (Nystatin Powder 15 Gm Bottle) 1 appl TOPICAL BID PRN; Protocol PRN Reason: Rash Ondansetron HCl (Ondansetron Hcl 4 Mg/2 Ml Vial) 4 mg IVPUSH Q8H PRN PRN Reason: Nausea and Vomiting Oxycodone HCl (Oxycodone Hcl Immed Release 5 Mg Tablet) 5 mg PO Q6H PRN PRN Reason: Pain, Moderate(Pain Scale 4-6) Last Admin: 03/03/24 09:24 Dose: 5 mg Documented By: MEL Prochlorperazine Maleate (Prochlorperazine Maleate 5 Mg Tablet) 5 mg PO BID PRN PRN Reason: nausea and vomiting Scopolamine (Scopolamine 1.5 Mg Patch.Td.3) 15 mg TRANSDERMA Q3D PRN PRN Reason: motion sickness Sodium Chloride (0.9 % Sodium Chloride Flush 3 Ml Syringe) 3 ml IVFLUSH QSHIFT [facility] Last Admin: 03/03/24 08:43 Dose: 3 ml Documented By: MEL Topiramate (Topiramate 100 Mg Tablet) 300 mg PO BEDTIME [facility] Trazodone HCl (Trazodone Hcl 100 Mg Tablet) 200 mg PO BEDTIME [facility] Labs 03/02/24 15:38 03/03/24 05:31 Labs: Laboratory Results - last 24 hr 03/02/24 03/02/24 03/02/24 15:38 16:20 20:37 MCV 90.0 MCH 30.0 MCHC 33.3 RDW 13.4 Plt Count 313 MPV 9.9 Immature Gran % (Auto) 0.4 Neut % (Auto) 68.4 Lymph % (Auto) 22.6 [place] % (Auto) 7.9 Eos % (Auto) 0.4 Baso % (Auto) 0.3 Lymph # (Auto) 2.0 [place] # (Auto) 0.7 Eos # (Auto) 0.0 Baso # (Auto) 0.0 Abs Immat Gran (auto) 0.04 H Absolute Neuts (auto) 6.2 Absolute Nucleated RBC 0.000 Nucleated RBC % (auto) 0.0 ESR 7 Hold Purple Top Anion Gap 12 Estim Creat Clear Calc 106.4 Estimated GFR > 60 Random Glucose 91 Calcium 9.4 Total Bilirubin 0.2 AST 19 ALT 23 Alkaline Phosphatase 32 L C-Reactive Protein 0.24 Total Protein 7.4 Albumin 4.5 Urine Color Dark Yellow Urine Appearance Clear Urine pH 5.5 Ur Specific [place] >= 1.030 H Urine Protein Trace Urine Glucose (UA) Negative Urine Ketones Negative Urine Blood Negative Urine Nitrite Negative Ur Leukocyte Esterase Negative 03/03/24 05:31 MCV MCH MCHC RDW Plt Count MPV Immature Gran % (Auto) Neut % (Auto) Lymph % (Auto) [place] % (Auto) Eos % (Auto) Baso % (Auto) Lymph # (Auto) [place] # (Auto) Eos # (Auto) Baso # (Auto) Abs Immat Gran (auto) Absolute Neuts (auto) Absolute Nucleated RBC Nucleated RBC % (auto) ESR Hold Purple Top SEE NOTE Anion Gap 15 Estim Creat Clear Calc 115.1 Estimated GFR > 60 Random Glucose 138 H Calcium 8.6 D Total Bilirubin AST ALT Alkaline Phosphatase C-Reactive Protein Total Protein Albumin Urine Color Urine Appearance Urine pH Ur Specific [place] Urine Protein Urine Glucose (UA) Urine Ketones Urine Blood Urine Nitrite Ur Leukocyte Esterase Assessment and Plan (1) Intractable back pain: Status: Acute Plan 43-year-old female with history of chronic low back pain and right SI fusion, dyslipidemia, mood disorder to be observed for intractable low back pain # Acute on chronic intractable low back pain -MRI of the lumbar spine 12/2023 which showed multilevel degenerative changes notably at L3-4 there is a moderate size central and right paracentral disc protrusion as well as bilateral facet hypertrophy narrowing the right lateral recess possibly compromising the descending right L4 nerve root. At L5-S1 there is a moderate size central and right paracentral disc perfusion as well as bilateral facet hypertrophy but no central canal stenosis. At L2-3 and L4-5 there is mild central canal stenosis. In the ED today did have CT of the lumbar spine showing the same multilevel degenerative changes but negative for any acute fracture or traumatic subluxation of the lumbar spine. -No alarm symptoms -IV methylprednisolone 40 mg b.i.d., change to prednisone at discharge -Robaxin t.i.d. -oral oxycodone and IV hydromorphone p.r.n. using pain scale -physical therapy consult--patient has been ambulating indepently in [place] -outpatient follow-up with Neurosurgery/Orthopedic surgery #HLD -statin #Hormone suppression -on Lupron # mood disorder -continue home medications # severe obesity with BMI greater than 38 -weight loss efforts encouraged DVT prophylaxis- SCPs/early ambulation Full code Quality Stroke Does the patient have a stroke diagnosis?: No VTE Prior VTE?: No VTE Risk Level:: Medical - moderate - high VTE Device Contraindication: N/A - Device Ordered VTE Drug Contraindication: Treatment Not Indicated
--- NOTE | 2024-03-03 10:44 | MHC.CM.PN ---
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
[2024-03-03 16:00] VITALS: BP 124/61; PULSE 85; RESP 14; TEMP 36.8; O2SAT 96
[2024-03-03 20:00] VITALS: PULSE 90; RESP 14; TEMP 36; O2SAT 96
[2024-03-03] MEDS: Escitalopram Oxalate 20 MG TABLET PO (20:12)
[2024-03-03] MEDS: traZODone HCL 100 MG TABLET 200 MG PO (20:12)
[2024-03-03] MEDS: Topiramate 100 MG TABLET 300 MG PO (20:12)
[2024-03-03] MEDS: Atorvastatin Calcium 20 MG TABLET PO (20:12)
[2024-03-04] MEDS: HYDROmorphone HCl 1 MG/ML SYRINGE 0.5 MG IVPUSH ×2 (02:29→06:39)
[2024-03-04 02:57] VITALS: BP 134/73; PULSE 74; RESP 18; TEMP 36; O2SAT 96
[2024-03-04] MEDS: methylPREDNISolone Sod Succ 125 MG/2 ML VIAL 60 MG IVPUSH (03:04)
[2024-03-04] MEDS: 0.9 % Sodium Chloride Flush 3 ML SYRINGE IVFLUSH (08:00)
[2024-03-04] MEDS: methocarbamoL 750 MG TABLET PO (08:00)
[2024-03-04 09:21] VITALS: BP 134/73; PULSE 74; O2SAT 96
--- NOTE | 2024-03-04 09:50 | PM.DS ---
DS: Providers Provider Date of Service: 03/04/24 Date of admission: 03/02/24 20:27 Primary care physician: Todd Rice [facility] DS: Diagnosis Discharge Diagnosis (1) Intractable back pain: Status: Acute DS: Summary Hospital Course Hospital Course: admission hpi Chief Complaint: back pain 43-year-old female with history of chronic low back pain and right SI fusion, dyslipidemia, mood disorder presents to the ED for evaluation of intractable low back pain. She reports 3 weeks ago, while visiting her partner in [place], she placed an object on a hook and when she brought her left hand/arm down by her side she felt sudden tightening and severe pain in the left low back. Since then the pain has been constant and was briefly relieved by a 2 week course of prednisone but states over the past week, the pain has been worsening though denies any new injury. She states she has chronic pain in the right hip/groin and chronic paresthesias in the left buttock. She denies any radiation of the pain but does feel the left lower extremity is weak. No paresthesias in the extremities. No saddle anesthesia, bowel/bladder dysfunction (though does mention occasional stress incontinence that is not new). She does follow with Neurosurgery and underwent right SI joint fusion in 10/2023 and reports she has now been referred to Orthopedic surgery for an arthrogram of the right hip. She did also have recent MRI of the lumbar spine which showed multilevel degenerative changes notably at L3-4 there is a moderate size central and right paracentral disc protrusion as well as bilateral facet hypertrophy narrowing the right lateral recess possibly compromising the descending right L4 nerve root. At L5-S1 there is a moderate size central and right paracentral disc perfusion as well as bilateral facet hypertrophy but no central canal stenosis. At L2-3 and L4-5 there is mild central canal stenosis. In the ED today did have CT of the lumbar spine showing the same multilevel degenerative changes but negative for any acute fracture or traumatic subluxation of the lumbar spine. In the ED has received multiple doses IV hydromorphone, ketorolac, diazepam, and methylprednisolone. Unfortunately, pain does persist, currently rated as a 9/10. 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 A recent MRI, as detailed previously, showed no acute changes. She presented with a flare-up of her back pain, which had increased over the past three weeks. She obtained partial relief after a course of prednisone. A CT scan of her back showed findings similar to the MRI, with no acute fracture noted. She was admitted and treated with IV steroids and pain medication, including IV dilaudid and oral oxycodone. She does not have any acute neurological deficits, such as weakness or urinary or stool incontinence. She is able to ambulate in the denney, which she feels provides some relief. I have contacted her Neurosurgery team (Praveen Cole), and arrangements are being made for her to be seen in their office. She will be discharged with a prednisone taper and a prescription for oxycodone. Time Attestation Discharge Coordination Time (in mins): 40 Quality: Safe Use of Opioids Does Pt have an Active Cancer Diagnosis on the Problem List?: No Quality: Stroke Does the patient have a stroke diagnosis?: No Physical Exam Vital Signs: Vital Signs: Last Vital Signs Temp 96.8 F 03/04/24 02:57 Pulse 74 03/04/24 09:21 Resp 18 03/04/24 02:57 BP 134/73 03/04/24 09:21 Pulse Ox 96 03/04/24 09:21 O2 Del Method Room Air 03/04/24 02:57 BMI result Body Mass Index 38.3 General: AO X 3, no acute distress Resp: CTA bilateral CVS: S1,S2,RRR GI: +BS, NT, no distention Skin: No rash Neuro: motor grossly intact, strenght in the lower extremity were equal and limitted by pain Psych: appropriate affect Discharge Plan Discharge Anticipated Discharge Date/Time: 03/04/24 09:41 Patient Disposition: Home, Self-Care Discharge Diagnosis: Acute flare of chronic back pain Referrals: Todd Rice, [employer] [Primary Care Provider] - 1 Week Discharge Medications: New oxycodone 5 mg Tablet 5 mg PO Q6H PRN (Reason: Pain, Moderate(Pain Scale 4-6)) Qty: 14 0RF Rx Instructions: Partial Fill upon patient request. prednisone 10 mg tablet See Taper PO DIRECTED Qty: 20 0RF Taper: Prednisone 40 mg daily for 2 Days and 0 Hour 30 mg daily for 2 Days and 0 Hour 20 mg daily for 2 Days and 0 Hour 10 mg daily for 2 Days and 0 Hour Rx Instructions: see tap Continued (DME) cpap mask/supplies See Rx Instructions .Route .MEDSUPPLY Qty: 1 3RF Rx Instructions: Mask for CPAP and any other tubing or supplies. ondansetron 8 mg tablet,disintegrating 8 mg PO Q8H PRN (Reason: nausea and vomiting) 30 Days Qty: 90 0RF (DME) BD Integra Syringe 3 mL 25 gauge x 1 syringe See Rx Instructions .Route Qty: 100 1RF Rx Instructions: q 3 weeks (DME) sacroiliac cushion See Rx Instructions .Route .MEDSUPPLY Qty: 1 0RF Rx Instructions: As directed (DME) wedge pillow for under knees See Rx Instructions .Route .MEDSUPPLY Qty: 1 0RF Rx Instructions: As directed (DME) crutches See Rx Instructions .Route .MEDSUPPLY Qty: 1 0RF Rx Instructions: crutches dx: sacroiliac fusion patient non weight bearing right leg cyanocobalamin (vitamin B-12) 1,000 mcg/mL solution 1,000 mcg IM .Q3 weeks 21 Days Qty: 25 2RF Rx Instructions: In office injections atorvastatin 20 mg tablet 20 mg PO BEDTIME 90 Days Qty: 90 0RF prochlorperazine maleate [Compazine] 5 mg tablet 5 mg PO BID PRN (Reason: nausea and vomiting) 10 Days Qty: 20 0RF scopolamine base 1 mg over 3 days patch 3 day 1 patch transdermal Q3D PRN (Reason: motion sickness) Qty: 24 0RF Rx Instructions: Uses for about a week after doing her Vitamin B-12 injection. trazodone 100 mg tablet 200 mg PO BEDTIME norethindrone acetate 5 mg tablet 5 mg PO BEDTIME escitalopram oxalate 20 mg tablet 20 mg PO BEDTIME fluticasone propionate [Flonase Allergy Relief] 50 mcg/actuation spray,suspension 2 spray intranasal DAILY PRN (Reason: Allergies) Rx Instructions: administer into each nostril naproxen sodium [Aleve] 220 mg Tablet 220 mg PO DAILY PRN (Reason: Pain) lorazepam 1 mg tablet 1 mg PO BEDTIME PRN (Reason: Pain) nystatin 100,000 unit/gram powder 1 appl topical BID PRN (Reason: Rash) topiramate 100 mg tablet 300 mg PO BEDTIME Discharge Orders: Discharge Order (Routine); Ordered 03/04/24 Ordered By: Tramaine Ruelas Diet: Advance to usual diet Activity on Discharge: As tolerated Stand Alone Forms: Patient Portal Discharge page Print Language: Albanian Care Plan Goals: Relief from back pain, so can participate in all [facility] Health Concerns: Acute on chronic back pain, Plan of Treatment: Take Pain medication as directed Take Prednisone rosa as directed Follow up with your neurosurgery team (the office will call you), if you condition gets worse.. especially with weakness in the legs, not able to walk, urinary or stool incontience, please see imidiate medical attention Assessment: see above
--- NOTE | 2024-03-04 09:55 | MHC.CM.PN ---
DP: PT HAS BEEN MEDICALLY CLEARED FOR DC HOME, NO SERVICES. PT HAS OWN RIDE HOME
== END 2024-03-04 11:18 | disposition home or self-care (01) ==
LOC: HO.ED 21:12 → HO.EDOVER 21:43 → HO.S3 03-03 00:24
PROVIDERS: Physician Assistant Medical; Admitting Provider Physician Assistant; Emergency Provider Emergency Medicine; PCP Nurse Practitioner Family; Visit Provider Internal Medicine
DX: G89.29 Other chronic pain (principal); M54.50 Low back pain, unspecified; M25.551 Pain in right hip; R10.30 Lower abdominal pain, unspecified; R20.2 Paresthesia of skin; M46.1 Sacroiliitis, not elsewhere classified; E78.5 Hyperlipidemia, unspecified; D64.9 Anemia, unspecified; M47.896 Other spondylosis, lumbar region; M48.061 Spinal stenosis, lumbar region without neurogenic claudication; M48.07 Spinal stenosis, lumbosacral region; F39 Unspecified mood [affective] disorder; E66.01 Morbid (severe) obesity due to excess calories; Z68.38 Body mass index [BMI] 38.0-38.9, adult; Z79.899 Other long term (current) drug therapy; Z96.659 Presence of unspecified artificial knee joint
CPT/HCPCS: 36415; 72131; 80048; 80053; 81003; 85025; 85652; 86140; 96372; 96374; 96375; 96376; 97161; 99221; 99285; J1170; J1885; J2919; J3360

== ENCOUNTER → 2024-03-02 15:34 | Outpatient (BNV) | payer OTHER, SELFPAY | PROVIDERS: Emergency Provider Emergency Medicine; PCP Nurse Practitioner Family; Visit Provider Physician Assistant | DX: M54.50 Low back pain, unspecified (principal) | CPT/HCPCS: 99223; 99232; 99239 ==

== ENCOUNTER 2024-03-14 12:32 | Outpatient (REF) | payer OTHER, SELFPAY ==
--- NOTE | ~2024-03-14 | FL_ITS ---
RIGHT HIP ARTHROGRAM FOR MRI INDICATIONS: Right hip pain. Intra-articular gadolinium injection is needed prior to MRI. PROCEDURE: Risks and benefits and possible complications were discussed with the patient and the consent form was signed. The patient was placed hip on the fluoroscopy table. The right hip was prepped and draped in normal sterile fashion. 1% buffered lidocaine was used for anesthesia. A 22-gauge spinal needle was used to access the hip joint. Intra-articular position of the needle within the hip joint was verified using 3 cc of Omnipaque 300. A total of 10 mL of gadolinium/saline (1:200) contrast mixture was then injected into the hip joint. The needle was then removed and a Band-Aid was applied to the injection site. The patient tolerated the procedure well and was sent for to MRI. There were no immediate complications. FL/FL arthrogram hip RT IMPRESSION: Fluoroscopic right hip arthrogram with intra-articular instillation of dilute gadolinium. The patient undergo subsequent MRI. The procedure was performed by Ned Oliveira PA-C, and directly supervised by Dr. Galarza.
--- NOTE | ~2024-03-14 | MR_ITS ---
EXAMINATION: MR HIP WITH CONTRAST, RIGHT CLINICAL INFORMATION: Right hip pain. Evaluate for labral tear. COMPARISON: Radiograph dated 11/24/2023. TECHNIQUE: MRI of the right hip was performed after the intra-articular administration of a dilute gadolinium-containing solution on a high-field scanner. FINDINGS: LABRUM/CAPSULE: There is an ill-defined tear of the anteroinferior acetabular labrum between the 3 o'clock position and 2 o'clock position with focal detachment of the torn labral fragment in this region. The labrum is more blunted and irregular superolaterally. There is a separate tear of the posterosuperior labrum between the 12 o'clock position and 10 o'clock position which is longitudinal in orientation. No paralabral cyst. ALPHA ANGLE (at the anterior 3 o'clock position): 50.6 degrees ACETABULAR DEPTH: Normal. BONES AND ARTICULAR CARTILAGE: Marginal osteophytes are present at the acetabular rim posterosuperiorly. There is mild cortical irregularity at the femoral head-neck junction laterally. Minimal chondral surface irregularity is noted at the acetabular roof anterosuperiorly. No fracture or malalignment. No stress fracture or avascular necrosis. Pubic symphysis is unremarkable. MUSCLES AND TENDONS: Minimal gluteus minimus tendinosis. No tears. Hamstring and rectus femoris tendons are normal. Musculature is normal in signal intensity. Adductor aponeuroses are unremarkable. JOINT FLUID AND BURSAE: No bursitis. No apparent loose bodies within the joint. LIGAMENTUM TERES: Intact. INTRAPELVIC SOFT TISSUES: An IUD is in place within the uterus. No acute intrapelvic abnormalities are identified. No adenopathy. MR/MR hip RT w con IMPRESSION: 1. Tears of the anteroinferior and posterosuperior acetabular labrum. 2. 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 3. Minimal gluteus minimus tendinosis.
[2024-03-14] MEDS: gadobutroL 2 ML VIAL IVPUSH (14:37)
== END 2024-03-14 12:33 | disposition home or self-care (01) ==
LOC: HO.XRAY 12:32
PROVIDERS: PCP Nurse Practitioner Family; Visit Provider Orthopaedic Surgery
DX: M25.551 Pain in right hip (principal)
CPT/HCPCS: 27093; 73525; 73722; A9585

== ENCOUNTER → 2024-03-14 12:57 | Outpatient (BNV) | payer OTHER, SELFPAY | PROVIDERS: PCP Nurse Practitioner Family; Visit Provider Physician Assistant Surgical | DX: M25.551 Pain in right hip (principal) | CPT/HCPCS: 27093; 73525 ==

== ENCOUNTER 2024-03-25 14:37 | Outpatient (AMB) | payer OTHER, SELFPAY ==
--- NOTE | 2024-03-25 15:04 | A.SPINEOV_ITS ---
Intake Visit Reasons: f/u w/ Dr. Tori Pond Intake Note: Ms. Bergeron is here today for a follow up. 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: No Allergies aloe vera [ALOE VERA] Allergy (Intermediate, Verified 03/02/24 15:24) RASH metoclopramide [From REGLAN] Allergy (Intermediate, Verified 03/02/24 15:24) antsy allopurinol Allergy (Unknown, Verified 03/02/24 15:24) does not remember gabapentin Adverse Reaction (Intermediate, Verified 03/02/24 15:24) Muscle cramps pregabalin [From Lyrica] Adverse Reaction (Intermediate, Verified 03/02/24 15:24) Muscle cramps Assessment & Plan Assessment & Plan (1) Intractable back pain: Code(s): M54.9 - Dorsalgia, unspecified Category: Medical (2) DJD (degenerative joint disease), lumbosacral: Code(s): M47.817 - Spondylosis without myelopathy or radiculopathy, lumbosacral region Category: Medical Plan Dear colleague On 03/25/2024, I saw for follow-up Nubia Bergeron. She underwent a right SI joint fusion in October 2023. She only had mild improvement. On further questioning, she denied responds to an SI joint injection or an SI joint belt in the past. An MRI of the right hip shows labrum tear which is most likely responsible for her right groin pain. Therefore we left with a chronic pain across the lumbar spine which is unbearable. She has multiple visits to the ED when she throws her back out. She tried many courses of physical therapy and injections in the past without success. I reviewed her latest MRI of the lumbar spine in detail which shows a small disc protrusion L3-4 that possibly compresses the right L4 nerve root but more importantly there is significant degenerative disc disease L5-S1. We an extensive discussion about addressing this level surgically. I quoted her 65% success rate if we fuse the L5-S1 region. My preference would be to do an oblique lumbar interbody fusion L5-S1 that allows for the best anatomical correction. She states that she had multiple abdominal hernia repairs in the past and that she has mesh in the ventral wall of the abdomen. I will refer her toDR. Beaver, the approach surgeon with a question if the oblique lumbar interbody fusion can be performed. If not, then I have to come posteriorly to perform the fusion. The surgical date will be dependent on 's schedule. I spent 20 minutes in his consult to review imaging of the lumbar spine and hip and to discuss the s urgical plan. Jose Valle MD, PhD Spine Fellowship Trained Neurosurgeon Director, [facility] Coding Level of Care Code Est Pt Level 4 (52022) Diagnoses Intractable back pain M54.9 DJD (degenerative joint disease), lumbosacral M47.817
== END 2024-03-25 15:54 | disposition home or self-care (01) ==
PROVIDERS: PCP Nurse Practitioner Family; Visit Provider Neurological Surgery
DX: M54.9 Dorsalgia, unspecified (principal); M47.817 Spondylosis without myelopathy or radiculopathy, lumbosacral region
CPT/HCPCS: 99214

== ENCOUNTER → 2024-03-25 14:37 | Outpatient (BNVA) | payer OTHER, SELFPAY | PROVIDERS: PCP Nurse Practitioner Family; Visit Provider Neurological Surgery | DX: M54.9 Dorsalgia, unspecified (principal); M47.817 Spondylosis without myelopathy or radiculopathy, lumbosacral region | CPT/HCPCS: 99212 ==

== ENCOUNTER 2024-04-15 12:54 | Outpatient (REF) | payer OTHER, SELFPAY ==
--- NOTE | ~2024-04-15 | CT_ITS ---
EXAMINATION: CT PELVIS WITHOUT CONTRAST CLINICAL INFORMATION: Sacroiliitis. COMPARISON: Lumbar spine CT 03/02/2024, sacroiliac joint radiographs 01/07/2024. TECHNIQUE: Helical scanning was performed with submillimeter collimation through the pelvis. Sagittal and coronal multiplanar 2-D reconstructions were obtained. This CT examination was performed using dose optimization techniques as appropriate, variously including the following: *Automated exposure control *Adjustment of mA and/or kV according to patient size (this includes techniques or standardized protocols for targeted exams where dose is matched to indication/reason for exam; i.e. extremities or head) *Use of iterative reconstruction technique DLP: 764 mGy-cm. FINDINGS: The visualized bowel appears unremarkable. There is no evidence of bowel obstruction. The appendix appears normal. There has been prior anterior abdominal wall hernia repair with mesh, unchanged from prior. No free fluid is seen. No adenopathy is seen. Some minimal atherosclerotic changes are present in the aorta and iliofemoral vessels. There is no evidence of an abdominal aortic aneurysm. A normal-appearing anteverted uterus is present which contains an IUD. An abnormal adnexal mass or free intraperitoneal fluid is not seen. The bony pelvis appears unremarkable. There is an unchanged, rounded, sclerotic lesion with lucent center in the right hemisacrum, adjacent to the SI joint (see saved mckeon images). No pathologic fractures or bony destructive lesions. Degenerative changes are seen at L5-S1. CT/CT pelvis wo IV con IMPRESSION: 1. No significant abnormality is seen. 2. The SI joints appear unremarkable. 3. Incidental note made of prior anterior abdominal wall hernia repair with mesh, IUD , degenerative changes at L5-S1 and unchanged sclerotic lesion in the right hemisacrum. Electronically signed by: Cameron García MD 05/06/2024 01:11 AM EDT
== END 2024-04-15 12:55 | disposition home or self-care (01) ==
LOC: HO.CT 12:54
PROVIDERS: Visit Provider Physician Assistant
DX: M46.1 Sacroiliitis, not elsewhere classified (principal)
CPT/HCPCS: 72192

== ENCOUNTER 2024-04-25 12:10 | Outpatient (AMB) | payer OTHER, SELFPAY ==
--- NOTE | 2024-04-25 12:16 | MHC.OFFVIS ---
Intake Visit Reasons: OV-Right hip-discuss possible surgery? Intake Note: Nubia is a 43 year old female who presents today to discuss possible Right Total Hip Replacement Allergies aloe vera [ALOE VERA] Allergy (Intermediate, Verified 04/25/24 12:18) RASH metoclopramide [From REGLAN] Allergy (Intermediate, Verified 04/25/24 12:18) antsy allopurinol Allergy (Unknown, Verified 04/25/24 12:18) does not remember gabapentin Adverse Reaction (Intermediate, Verified 04/25/24 12:18) Muscle cramps pregabalin [From Lyrica] Adverse Reaction (Intermediate, Verified 04/25/24 12:18) Muscle cramps HPI HPI OV-Right hip-discuss possible surgery?: Details: Nubia comes in today with right hip pain. She had an MRI of her spine and is currently in consultation for possible spine surgery. She does describe some SI joint pain extending into her greater trochanter and down into her thigh as well as occasional groin pain. She has difficulty getting through her day without pain. She has difficulty with walking standing from a seated position and overall states that the quality of her life is significantly diminished. She was recently on a prednisone taper. She takes NSAIDs and lorazepam at night. She had an MRI of her right hip and comes in today [facility] Medical History Dyslipidemia Elevated cholesterol Anemia Sacroiliitis Sleep apnea Arthritis of knee, left History of abdominal hernia Bipolar 2 disorder Surgical History History of partial hypophysectomy H/O hernia repair History of colostomy reversal History of elbow surgery History of left oophorectomy History of partial surgical removal of colon History of total right knee replacement Family History Father Hypertension Mother Pre-diabetes Hypertension Sister Cervical cancer Social History Household Members: Other Household Members Other:: sister Housing: Apartment Housing Other:: third floor Are you a primary geriatric care manager to a significant other at home: No Do you presently have visiting nurse or other home services: No Alcohol intake: current Alcohol intake frequency: does not drink Patient Tobacco Use Status: Former Tobacco user Tobacco use type: Smokeless Tobacco Cigarettes Per Day: 4 Years Smoked: 20 years e-Cigarette/Vaping Use: Never Used Second Hand Smoke Exposure: No Substance Use Type: Marijuana service: No Current occupational status: disabled Cognitive needs: No Hearing needs: No Vision needs: No Physical Exam Extrem Other: On exam she has an antalgic gait with pain anteriorly and posteriorly in the right hip. She does have a positive impingement test on the right but her range of motion is maintained. Results Reviewed Results Reviewed: MRI demonstrates anterior inferior and posterior superior labral tearing with mild arthritis. Assessment & Plan Assessment & Plan (1) Arthritis of right hip: Code(s): M16.11 - Unilateral primary osteoarthritis, right hip Category: Medical Plan: This is a 43-year-old woman with right hip pain. She has mild arthritis with labral tearing arm on MRI. Her primary concern and pain generator continues to be her back. She is currently in treatment with spine doctors and I recommend that she clarify her the spine treatment and pursue that. Arthroscopic intervention in her hip is theoretically possible but she would need extensive physical therapy and weight loss. I recommend that she follow up as needed pending her spine progress. She understands the plan. (2) Sacroiliitis: Code(s): M46.1 - Sacroiliitis, not elsewhere classified Category: Medical Plan: (3) Chronic radicular pain of lower back: Code(s): M54.16 - Radiculopathy, lumbar region; G89.29 - Other chronic pain Category: Medical Plan: Coding Level of Care Code Est Pt Level 3 (91766) Complex EM visit Add On G2211 Diagnoses Arthritis of right hip M16.11 Sacroiliitis M46.1 Chronic radicular pain of lower back M54.16; G89.29
== END 2024-04-25 12:55 | disposition home or self-care (01) ==
PROVIDERS: PCP Nurse Practitioner Family; Visit Provider Orthopaedic Surgery
DX: M16.11 Unilateral primary osteoarthritis, right hip (principal); M46.1 Sacroiliitis, not elsewhere classified; M54.16 Radiculopathy, lumbar region; G89.29 Other chronic pain
CPT/HCPCS: 99213; G2211

== ENCOUNTER → 2024-04-25 12:10 | Outpatient (BNVA) | payer OTHER, SELFPAY | PROVIDERS: PCP Nurse Practitioner Family; Visit Provider Orthopaedic Surgery | DX: M16.11 Unilateral primary osteoarthritis, right hip (principal); M46.1 Sacroiliitis, not elsewhere classified; M54.16 Radiculopathy, lumbar region; G89.29 Other chronic pain | CPT/HCPCS: 99212 ==

== ENCOUNTER 2024-05-05 12:41 | Emergency (ER) | payer OTHER, SELFPAY ==
[2024-05-05 13:02] VITALS: BP 150/99; PULSE 92; RESP 20; TEMP 36; O2SAT 97; BMI 38.4
[2024-05-05 13:18] LABS: MANUAL DIFF FLAG NO
[2024-05-05 13:23] LABS: Basophils Absolute Auto 0.1 X10*3/uL (0.0-0.2); Basophils Percent Auto 0.6 % (0-2); Eosinophils Absolute Auto 0.1 X10*3/uL (0.0-0.4); Eosinophils Percent Auto 1.4 % (0-4); Hematocrit 42.4 % (37.0-47.0); Hemoglobin 14.1 g/dl (12.0-16.0); Imm Gran Abs Auto 0.03 X10*3/uL (0.00-0.03); Imm Gran Pct Auto 0.4 % (0.0-0.4); Lymphocytes Absolute Auto 2.7 X10*3/uL (1.2-4.9); Lymphocytes Percent Auto 32.1 % (20-40); Mean Corpuscular HGB Conc 33.3 g/dl (31.0-35.0); Mean Corpuscular Hemoglobin 29.3 pg (27.0-33.0); Mean Corpuscular Volume 88.1 fL (80.0-98.0); Mean Platelet Volume 10.1 fL (9.4-12.3); Monocytes Absolute Auto 0.7 X10*3/uL (0.1-1.2); Monocytes Percent Auto 8.6 % (2-11); Neutrophils Absolute Auto 4.8 x10*3/uL (2.0-8.3); Neutrophils Percent Auto 56.9 % (45-73); Platelet Count 292 X10*3/uL (160-400); Red Blood Count 4.81 X10*6/uL (4.20-5.50); Red Cell Distribution Width 13.7 % (11.0-16.0); White Blood Count 8.5 X10*3/uL (4.8-10.8)
[2024-05-05 13:35] LABS: Alanine Aminotransferase 25 U/L (0-31); Albumin Level 4.8 g/dL (3.5-5.0); Alkaline Phosphatase 39 U/L (39-117); Anion Gap 14 (12-20); Aspartate Amino Transferase 18 U/L (5-31); Bilirubin Total 0.3 mg/dL (0.0-1.0); Blood Urea Nitrogen 13 mg/dL (9-16); Carbon Dioxide 22 mmol/L (22-29); Chloride 108 mmol/L (96-108); Creatinine Clr Calc Pharmacy 103.7; Estimated Glomerular Filt Rate > 60; Glucose Random 93 mg/dL (60-115); Potassium 3.8 mmol/L (3.3-5.1); Sodium 140 mmol/L (135-145); Total Protein 7.8 g/dL (6.5-8.0)
[2024-05-05 16:00] VITALS: BP 110/63; PULSE 60; RESP 19; TEMP 36.3; O2SAT 98
--- NOTE | 2024-05-05 17:23 | ED.BACK ---
HPI - Back Pain/Injury General Chief Complaint: Back Pain/Injury Stated Complaint: Back pain Time Seen by Provider: 05/05/24 16:25 Source: patient Limitations: no limitations History of Present Illness ED Provider: Enid Flynn PA-C HPI Narrative: 43-year-old female with history of morbid obesity, lumbar sacral degenerative joint disease now status post S1 fusion, chronic lumbar radiculopathy currently pending fusion of L5-S1, presents with back pain exacerbation. Patient states her discomfort is primarily right low back with radiation down the right lower extremity. Associated paresthesias, and ongoing urinary incontinence. Patient denies urinary retention, bowel incontinence, weakness of lower extremities or saddle anesthesia. Patient states when she has an exacerbation, steroids are typically helpful. Related Data Home Medications ?Medication ?Instructions ?Recorded ?Confirmed lorazepam 1 mg tablet 1 mg PO BEDTIME PRN Pain 04/29/21 03/02/24 trazodone 100 mg tablet 200 mg PO BEDTIME 09/19/21 03/02/24 nystatin 100,000 unit/gram topical 1 appl topical BID PRN Rash 12/24/21 03/02/24 powder topiramate 100 mg tablet 300 mg PO BEDTIME 01/08/23 03/02/24 escitalopram oxalate 20 mg tablet 20 mg PO BEDTIME 03/02/24 03/02/24 fluticasone propionate 50 2 spray intranasal DAILY PRN 03/02/24 03/02/24 mcg/actuation nasal Allergies spray,suspension (Flonase Allergy Relief) naproxen sodium 220 mg tablet 220 mg PO DAILY PRN Pain 03/02/24 03/02/24 (Aleve) norethindrone acetate 5 mg tablet 5 mg PO BEDTIME 03/02/24 03/02/24 Previous Rx's ?Medication ?Instructions ?Recorded cpap mask/supplies #1 ea 09/09/21 ondansetron 8 mg disintegrating 8 mg PO Q8H PRN nausea and 01/02/23 tablet vomiting 30 days #90 tabs syringe with needle, safety 3 mL #100 ea 05/21/23 25 gauge x 1 (BD Integra Syringe) sacroiliac cushion #1 ea 05/25/23 wedge pillow for under knees #1 ea 05/25/23 crutches #1 ea 11/12/23 cyanocobalamin (vitamin B-12) 1,000 mcg IM .Q3 weeks 21 days #25 11/26/23 1,000 mcg/mL injection solution mL prochlorperazine maleate 5 mg 5 mg PO BID PRN nausea and 01/08/24 tablet (Compazine) vomiting 10 days #20 tabs scopolamine base 1 mg over 3 days 1 patch transdermal Q3D PRN motion 01/08/24 transdermal patch sickness #24 ea oxycodone 5 mg tablet 5 mg PO Q6H PRN Pain, 03/04/24 Moderate(Pain Scale 4-6) #14 tabs prednisone 10 mg tablet See Taper PO DIRECTED #20 tabs 03/04/24 atorvastatin 20 mg tablet 20 mg PO BEDTIME 90 days #90 tabs 04/22/24 methocarbamol 1,000 mg tablet 1,000 mg PO QID pain #30 tabs 05/05/24 methylprednisolone 4 mg tablets in 4 mg PO DAILY #1 ea 05/05/24 a dose pack (Medrol (Steve)) oxycodone 5 mg tablet 5 mg PO Q6H PRN pain #16 tabs 05/05/24 Allergies Allergy/AdvReac Type Severity Reaction Status Date / Time aloe vera [ALOE VERA] Allergy Intermediate RASH Verified 05/05/24 13:05 metoclopramide [From REGLAN] Allergy Intermediate antsy Verified 05/05/24 13:05 allopurinol Allergy Unknown does not Verified 05/05/24 13:05 remember gabapentin AdvReac Intermediate Muscle Verified 05/05/24 13:05 cramps pregabalin [From Lyrica] AdvReac Intermediate Muscle Verified 05/05/24 13:05 cramps Review of Systems Review of Systems: Yes all other systems are reviewed and are negative Constitutional: Constitutional: Denies fever(s) Cardiovascular: Cardiovascular: Denies chest pain and Denies dyspnea Respiratory: Respiratory: Denies dyspnea Gastrointestinal: Gastrointestinal: Denies nausea and Denies vomiting Genitourinary: Genitourinary: Denies dysuria, Reports urinary incontinence and Denies urinary hesitancy Musculoskeletal: Musculoskeletal: Denies numbness Neurologic: Denies focal weakness, Denies numbness and Reports paresthesias [facility] Past Medical History Attestation statement: The following information was validated with the patient. Medical History Dyslipidemia Elevated cholesterol Anemia Sacroiliitis Sleep apnea Arthritis of knee, left History of abdominal hernia Bipolar 2 disorder Surgical History History of partial hypophysectomy H/O hernia repair History of colostomy reversal History of elbow surgery History of left oophorectomy History of partial surgical removal of colon History of total right knee replacement Family History Family History Father Hypertension Mother Pre-diabetes Hypertension Sister Cervical cancer Social History Social History Household Members: Other Household Members Other:: sister Housing: Apartment Housing Other:: third floor Are you a primary memory care program resident to a significant other at home: No Do you presently have visiting nurse or other home services: No Alcohol intake: current Alcohol intake frequency: does not drink Patient Tobacco Use Status: Former Tobacco user Tobacco use type: Smokeless Tobacco Cigarettes Per Day: 4 Years Smoked: 20 years e-Cigarette/Vaping Use: Never Used Second Hand Smoke Exposure: No Substance Use Type: Marijuana Advance Directives: No Advance Directives Information Provided: No Do you have a plan to hurt others: No Plan Patient : No service: No Current occupational status: disabled Cognitive needs: No Hearing needs: No Vision needs: No Physical Exam Vital Signs: Vital Signs: Last Vital Signs Temp 97.3 F 05/05/24 16:00 Pulse 60 05/05/24 16:00 Resp 19 05/05/24 16:00 BP 110/63 05/05/24 16:00 Pulse Ox 98 05/05/24 16:00 O2 Del Method Room Air 05/05/24 16:00 BMI result Body Mass Index 38.4 Const: Other: Alert, appears older than stated age Orientation/consciousness: patient oriented x3 Resp: Other: Nonlabored respiration Cardio: Other: Normal peripheral perfusion Skin: Other: Warm dry no rash Neuro: Other: Patient ambulatory walks with antalgic gait, uses a cane General: patient oriented x3, no focal motor deficits and CN's II-XI intact bilaterally Extrem: Other: Strength 5/5 bilateral lower extremities with resistance in plantar flexion dorsiflexion, adduction abduction, straight leg raise somewhat minimal on the right Psych: Other: Calm cooperative Medications Administered Discontinued Medications Generic Name Dose Route Start Last Admin Trade Name Jerilyn PRN Reason Stop Dose Admin Methylprednisolone 8 mg 05/05/24 17:09 05/05/24 17:32 Methylprednisolone 4 Mg Tablet PO 05/05/24 17:10 8 mg ONCE ONE Administration Medical Decision Making Medical Decision Making [facility] Narrative: 43-year-old female with history of morbid obesity, lumbar sacral degenerative joint disease now status post S1 fusion, chronic lumbar radiculopathy currently pending fusion of L5-S1, presents with back pain exacerbation. Patient states her discomfort is primarily right low back with radiation down the right lower extremity. Associated paresthesias, and ongoing urinary incontinence. Patient denies urinary retention, bowel incontinence, weakness of lower extremities or saddle anesthesia. Patient states when she has an exacerbation, steroids are typically helpful. Problem: Known degenerative disc disease History: Per patient I have considered the following differential diagnoses: Sciatica, lumbar radiculopathy, cauda equina, epidural abscess Plan: Patient has known DJD, she has chronic radicular symptoms, we will treat with analgesia and steroid. He note she does not have risk factors for epidural abscess, she has not been febrile, there has been no joint injections. She is not diabetic she does not use IV drugs. She also does not have red flag signs symptoms concerning for cord compression at this time. There is no indication for advanced imaging tonight. Screening labs were obtained from triage I have independently reviewed the following tests: Labs: No leukocytosis, not anemic, no electrolyte abnormality Lab Data 05/05/24 13:14 05/05/24 13:14 Labs: Lab Results 05/05/24 Range/Units 13:14 WBC 8.5 (4.8-10.8) X10*3/uL RBC 4.81 (4.20-5.50) X10*6/uL Hgb 14.1 (12.0-16.0) g/dl Hct 42.4 (37.0-47.0) % MCV 88.1 (80.0-98.0) fL MCH 29.3 (27.0-33.0) pg MCHC 33.3 (31.0-35.0) g/dl RDW 13.7 (11.0-16.0) % Plt Count 292 (160-400) X10*3/uL MPV 10.1 (9.4-12.3) fL Immature Gran % (Auto) 0.4 (0.0-0.4) % Neut % (Auto) 56.9 (45-73) % Lymph % (Auto) 32.1 (20-40) % [place] % (Auto) 8.6 (2-11) % Eos % (Auto) 1.4 (0-4) % Baso % (Auto) 0.6 (0-2) % Lymph # (Auto) 2.7 (1.2-4.9) X10*3/uL [place] # (Auto) 0.7 (0.1-1.2) X10*3/uL Eos # (Auto) 0.1 (0.0-0.4) X10*3/uL Baso # (Auto) 0.1 (0.0-0.2) X10*3/uL Abs Immat Gran (auto) 0.03 (0.00-0.03) X10*3/uL Absolute Neuts (auto) 4.8 (2.0-8.3) x10*3/uL Absolute Nucleated RBC 0.000 (0.0-0.012) X10*3/uL Nucleated RBC % (auto) 0.0 (0.0-0.2) /100WBC Sodium 140 (135-145) mmol/L Potassium 3.8 (3.3-5.1) mmol/L Chloride 108 (96-108) mmol/L Carbon Dioxide 22 (22-29) mmol/L Anion Gap 14 (12-20) BUN 13 (9-16) mg/dL Creatinine 0.88 (0.5-1.4) mg/dL Estim Creat Clear Calc 103.7 Estimated GFR > 60 Random Glucose 93 (60-115) mg/dL Calcium 10.0 D (8.4-10.2) mg/dL Total Bilirubin 0.3 (0.0-1.0) mg/dL AST 18 (5-31) U/L ALT 25 (0-31) U/L Alkaline Phosphatase 39 (39-117) U/L Total Protein 7.8 (6.5-8.0) g/dL Albumin 4.8 (3.5-5.0) g/dL Discharge Plan Discharge Clinical Impression: Acute right lumbar radiculopathy Patient Disposition: Home, Self-Care Instructions: Lumbar Radiculopathy (ED) Additional Instructions: You are being treated for lumbar radiculopathy, see home care instructions. Use your Medrol Dosepak as directed. You received your 1st dose of steroid here in the emergency department, you do not require any additional steroid until tomorrow. Continue to use the naproxen as directed, take with food. Use of methocarbamol, this is a muscle relaxant, as needed for pain. To note this medication will cause drowsiness, do not drive or operate machinery while taking the medication. Also use oxycodone as needed for pain. To note the oxycodone can be constipating, you should also use an [id number] stool softener and/or MiraLax, to help determine her constipation. Follow up with your primary care provider as needed. Prescriptions: New methocarbamol 1,000 mg tablet 1,000 mg PO QID Qty: 30 0RF oxycodone 5 mg tablet 5 mg PO Q6H PRN (Reason: pain) Qty: 16 0RF Rx Instructions: Partial Fill upon patient request. methylprednisolone [Medrol (Steve)] 4 mg tablets,dose pack 4 mg PO DAILY Qty: 1 0RF Rx Instructions: use per package instructions No Action (DME) cpap mask/supplies See Rx Instructions .Route .MEDSUPPLY Qty: 1 3RF Rx Instructions: Mask for CPAP and any other tubing or supplies. ondansetron 8 mg tablet,disintegrating 8 mg PO Q8H PRN (Reason: nausea and vomiting) 30 Days Qty: 90 0RF (DME) BD Integra Syringe 3 mL 25 gauge x 1 syringe See Rx Instructions .Route Qty: 100 1RF Rx Instructions: q 3 weeks (DME) sacroiliac cushion See Rx Instructions .Route .MEDSUPPLY Qty: 1 0RF Rx Instructions: As directed (DME) wedge pillow for under knees See Rx Instructions .Route .MEDSUPPLY Qty: 1 0RF Rx Instructions: As directed (DME) crutches See Rx Instructions .Route .MEDSUPPLY Qty: 1 0RF Rx Instructions: crutches dx: sacroiliac fusion patient non weight bearing right leg cyanocobalamin (vitamin B-12) 1,000 mcg/mL solution 1,000 mcg IM .Q3 weeks 21 Days Qty: 25 2RF Rx Instructions: In office injections prochlorperazine maleate [Compazine] 5 mg tablet 5 mg PO BID PRN (Reason: nausea and vomiting) 10 Days Qty: 20 0RF scopolamine base 1 mg over 3 days patch 3 day 1 patch transdermal Q3D PRN (Reason: motion sickness) Qty: 24 0RF Rx Instructions: Uses for about a week after doing her Vitamin B-12 injection. atorvastatin 20 mg tablet 20 mg PO BEDTIME 90 Days Qty: 90 0RF trazodone 100 mg tablet 200 mg PO BEDTIME norethindrone acetate 5 mg tablet 5 mg PO BEDTIME escitalopram oxalate 20 mg tablet 20 mg PO BEDTIME fluticasone propionate [Flonase Allergy Relief] 50 mcg/actuation spray,suspension 2 spray intranasal DAILY PRN (Reason: Allergies) Rx Instructions: administer into each nostril naproxen sodium [Aleve] 220 mg Tablet 220 mg PO DAILY PRN (Reason: Pain) oxycodone 5 mg Tablet 5 mg PO Q6H PRN (Reason: Pain, Moderate(Pain Scale 4-6)) Qty: 14 0RF Rx Instructions: Partial Fill upon patient request. prednisone 10 mg tablet See Taper PO DIRECTED Qty: 20 0RF Taper: Prednisone 40 mg daily for 2 Days and 0 Hour 30 mg daily for 2 Days and 0 Hour 20 mg daily for 2 Days and 0 Hour 10 mg daily for 2 Days and 0 Hour Rx Instructions: see tap lorazepam 1 mg tablet 1 mg PO BEDTIME PRN (Reason: Pain) nystatin 100,000 unit/gram powder 1 appl topical BID PRN (Reason: Rash) topiramate 100 mg tablet 300 mg PO BEDTIME Print Language: Korean
[2024-05-05] MEDS: methylPREDNISolone 4 MG TABLET 8 MG PO (17:32)
[2024-05-05 17:50] VITALS: BP 110/63; PULSE 60; RESP 19; TEMP 36.3; O2SAT 98
== END 2024-05-05 17:50 | disposition home or self-care (01) ==
PROVIDERS: Emergency Provider Emergency Medicine; PCP Nurse Practitioner Family
DX: M54.16 Radiculopathy, lumbar region (principal); M54.50 Low back pain, unspecified
CPT/HCPCS: 36415; 80053; 85025; 99283; 99284

== ENCOUNTER 2024-06-10 10:00 | Inpatient (IN) | payer OTHER, SELFPAY ==
--- NOTE | ~2024-06-10 | MR_ITS ---
EXAMINATION: MR LUMBAR SPINE WITHOUT AND WITH CONTRAST CLINICAL INFORMATION: Worsening lumbar pain, urinary incontinence, rule out cauda equina syndrome COMPARISON: MR lumbar spine on 10/22/2020 TECHNIQUE: MRI of the lumbar spine was obtained using routine sequences with and without contrast. Intravenous contrast: Gadavist 10 mL FINDINGS: Preservation of the normal lumbar lordosis. Mild retrolisthesis at L2-3, L3-4, and L5-S1. No acute bone marrow abnormality or suspicious enhancement. The vertebral body heights are preserved. Multilevel disc desiccation with moderate disc height loss at L5-S1. The visualized spinal cord is normal in caliber. No abnormal cord signal or enhancement. The conus medullaris terminates at L1. T11-12: Diffuse disc bulge. No significant spinal canal or neural foraminal narrowing. T12/L1: No significant spinal canal or neural foraminal narrowing. L1-2: Shallow disc bulge. No significant spinal canal or neural foraminal narrowing. L2-3: Diffuse disc bulge, increased in size from prior. Superimposed annular fissure. Mild spinal canal stenosis, unchanged from prior. No significant neural foraminal narrowing. L3-4: Diffuse disc bulge with superimposed right paracentral disc protrusion. Annular fissure. Moderate spinal canal stenosis with mass effect on the cauda equina nerve roots, progressed from prior. Mild right greater than left neural foraminal narrowing, unchanged. The disc abutting the exiting L3 nerve roots bilaterally. L4-5: Diffuse disc bulge with superimposed annular fissure. Bilateral facet arthrosis and prominent dorsal epidural fat. Mild spinal canal stenosis, unchanged. Mild to moderate bilateral neural foraminal narrowing with the disc abutting the exiting L4 nerve roots bilaterally, also unchanged. L5-S1: Diffuse disc bulge with superimposed central disc protrusion. Bilateral facet arthrosis. Mild left greater than right neural foraminal narrowing with images covering the exiting L5 nerve roots bilaterally, unchanged. The paravertebral soft tissues are unremarkable. MR/MR lumbar spine wo/w con IMPRESSION: Multilevel lumbar spondylosis as detailed above. -At L3-4, spinal canal stenosis has progressed, now moderate in degree with mass effect on the cauda equina nerve roots. -Unchanged mild spinal canal stenosis at L2-3 and L4-5. Neuroforaminal narrowing is worst and mild to moderate at L4-5 bilaterally. -Annular fissures at L2-3, L3-4, and L4-5. Electronically signed by: Diana Herrera MD 06/10/2024 02:02 PM EDT RP
[2024-06-10 10:05] VITALS: BP 141/90; PULSE 104; RESP 18; TEMP 36.3; O2SAT 99; BMI 38.4
--- NOTE | 2024-06-10 11:13 | ED.BACK ---
HPI - Back Pain/Injury General Chief Complaint: Back Pain/Injury Stated Complaint: Back pain Time Seen by Provider: 06/10/24 10:23 Source: patient, RN notes reviewed and old records reviewed Mode of arrival: ambulatory Limitations: no limitations History of Present Illness ED Provider: REUBEN SALAZAR PA-C HPI Narrative: 43 year old female with pmhx significant for sacroiliitis s/p SI joint fusion (10/2023), degenerative disc disease at L5-S1, bipolar 2 disorder, vitamin b12 deficiency anemia, presents to the ED today with acute on chronic back pain and worsening urinary incontinence x3 days. Patient reports history of urinary stress incontinence however states over the last 3 days this has acutely worsened. Reports intermittently losing control of her bladder. This used to happen only with sneezing/ coughing, now occurring with subtle movements to the point where she needs to change her pants. States she feels the need to urinate however does not feel herself begin to urinary. Denies bowel incontinence or retention. Admits to new numbness to the lateral aspect of her right thigh with pain/ tingling extending down her entire right leg. Reports associated nausea without vomiting. Denies new injury/ trauma/ fall. She states she has lumbar surgery scheduled on 06/29/[address] Valle for this however given worsening symptoms, came to ED for evaluation. Denies hx of IVDU. Related Data Home Medications ?Medication ?Instructions ?Recorded ?Confirmed lorazepam 1 mg tablet 1 mg PO BEDTIME PRN Pain 04/29/21 03/02/24 trazodone 100 mg tablet 200 mg PO BEDTIME 09/19/21 03/02/24 nystatin 100,000 unit/gram topical 1 appl topical BID PRN Rash 12/24/21 03/02/24 powder topiramate 100 mg tablet 300 mg PO BEDTIME 01/08/23 03/02/24 escitalopram oxalate 20 mg tablet 20 mg PO BEDTIME 03/02/24 03/02/24 fluticasone propionate 50 2 spray intranasal DAILY PRN 03/02/24 03/02/24 mcg/actuation nasal Allergies spray,suspension (Flonase Allergy Relief) naproxen sodium 220 mg tablet 220 mg PO DAILY PRN Pain 03/02/24 03/02/24 (Aleve) norethindrone acetate 5 mg tablet 5 mg PO BEDTIME 03/02/24 03/02/24 Previous Rx's ?Medication ?Instructions ?Recorded cpap mask/supplies #1 ea 09/09/21 ondansetron 8 mg disintegrating 8 mg PO Q8H PRN nausea and 01/02/23 tablet vomiting 30 days #90 tabs sacroiliac cushion #1 ea 05/25/23 wedge pillow for under knees #1 ea 05/25/23 crutches #1 ea 11/12/23 cyanocobalamin (vitamin B-12) 1,000 mcg IM .Q3 weeks 21 days #25 11/26/23 1,000 mcg/mL injection solution mL prochlorperazine maleate 5 mg 5 mg PO BID PRN nausea and 01/08/24 tablet (Compazine) vomiting 10 days #20 tabs scopolamine base 1 mg over 3 days 1 patch transdermal Q3D PRN motion 01/08/24 transdermal patch sickness #24 ea oxycodone 5 mg tablet 5 mg PO Q6H PRN Pain, 03/04/24 Moderate(Pain Scale 4-6) #14 tabs prednisone 10 mg tablet See Taper PO DIRECTED #20 tabs 03/04/24 atorvastatin 20 mg tablet 20 mg PO BEDTIME 90 days #90 tabs 04/22/24 methocarbamol 1,000 mg tablet 1,000 mg PO QID pain #30 tabs 05/05/24 methylprednisolone 4 mg tablets in 4 mg PO DAILY #1 ea 05/05/24 a dose pack (Medrol (Steve)) oxycodone 5 mg tablet 5 mg PO Q6H PRN pain #16 tabs 05/05/24 syringe with needle, safety 3 mL #100 ea 06/06/24 25 gauge x 1 (BD Integra Syringe) Allergies Allergy/AdvReac Type Severity Reaction Status Date / Time aloe vera [ALOE VERA] Allergy Intermediate RASH Verified 06/10/24 10:08 metoclopramide [From REGLAN] Allergy Intermediate antsy Verified 06/10/24 10:08 allopurinol Allergy Unknown does not Verified 06/10/24 10:08 remember gabapentin AdvReac Intermediate Muscle Verified 06/10/24 10:08 cramps pregabalin [From Lyrica] AdvReac Intermediate Muscle Verified 06/10/24 10:08 cramps Review of Systems Review of Systems: Constitutional: No fever, chills, fatigue, night sweats, weight changes ENT/Mouth: No ear pain, hearing loss, nasal congestion, sinus pain, rhinorrhea, sore throat Eyes: No eye pain, swelling, redness, vision changes, discharge Cardio: No chest pain, palpitations, TORRES, orthopnea, peripheral edema Pulm: No SOB, cough, sputum, wheezing, dyspnea, hemoptysis GI: No nausea, vomiting, hematemesis, abdominal pain, diarrhea, constipation, hematochezia, melena : No irregular bleeding, dysuria, frequency, urgency, hesitancy, hematuria, flank pain, urinary flow changes, urinary incontinence or retention, +urinary incontinence MSK: No neck pain, joint pain, myalgias, +back pain Skin: No lesions, rashes Neuro: No weakness, numbness, paresthesias, LOC, dizziness, headache Psych: No anxiety/panic, depression, SI/HI, AH/VH All other systems reviewed and are negative. [facility] Past Medical History Attestation statement: The following information was validated with the patient. Source: old records reviewed and nursing notes reviewed Medical History Dyslipidemia Elevated cholesterol Anemia Sacroiliitis Sleep apnea Arthritis of knee, left History of abdominal hernia Bipolar 2 disorder Surgical History History of partial hypophysectomy H/O hernia repair History of colostomy reversal History of elbow surgery History of left oophorectomy History of partial surgical removal of colon History of total right knee replacement Family History Family History Father Hypertension Mother Pre-diabetes Hypertension Sister Cervical cancer Social History Social History Household Members: Other Household Members Other:: sister Housing: Apartment Housing Other:: third floor Are you a primary pet caretaker to a significant other at home: No Do you presently have visiting nurse or other home services: No Alcohol intake: current Alcohol intake frequency: does not drink Patient Tobacco Use Status: Former Tobacco user Tobacco use type: Smokeless Tobacco Cigarettes Per Day: 4 Years Smoked: 20 years Smoked in Last 30 Days: No e-Cigarette/Vaping Use: Never Used Second Hand Smoke Exposure: No Use of substances other than those prescribed or required for medical reasons: Yes Substance Use Type: Marijuana Advance Directives: No Advance Directives Information Provided: No Do you have a plan to hurt others: No Plan Patient : No service: No Current occupational status: disabled Cognitive needs: No Hearing needs: No Vision needs: No Physical Exam Vital Signs: Vital Signs: Last Vital Signs Temp 98.2 F 06/10/24 15:19 Pulse 70 06/10/24 15:19 Resp 16 06/10/24 15:19 BP 117/62 06/10/24 15:19 Pulse Ox 97 06/10/24 15:19 O2 Del Method Room Air 06/10/24 15:19 BMI result Body Mass Index 38.4 hypertensive and tachycardic General: uncomfortable appearing, tearful on exam, standing/ pacing, does not want to sit d/t pain Skin: Warm, dry, intact. No rashes or lesions. Head: Normocephalic, atraumatic. EENT: Hearing is intact b/l. Conjunctiva clear. PERRLA. Moist mucous membranes.? Neck: Supple without LAD. FROM. Trachea midline.? Cardiac: Chest wall symmetric. RRR. Lungs: Normal respiratory effort without accessory muscle use. Abdomen: Soft, non-tender, non-distended. No rebound tenderness or guarding. Positive BS x4. Back: +midline lumbar spinous tenderness without step off deformity Ext: Upper and lower extremities atraumatic, without tenderness, deformity, swelling or erythema. Full ROM throughout. Pulses 2+ equal and bilateral. Neuro: AOx3. Normal speech. strength 5/5 intact throughout. diminished sensation to right lateral thigh with light touch. normal rectal tone on BOZENA. Ambulating w/ slow but steady gait. positive straight leg raise on right. Psych: Appropriate mood and affect. Responds appropriately to questions. Course Course Course Narrative: 1433 -- CBC without leukocytosis or left shift. No anemia. H&H stable. Chemistry without acute electrolyte abnormality requiring intervention. No YOSEPH. Normal liver function. Beta quant undetectable. MRI lumbar spine showing L3-L4 spinal canal stenosis progression, now moderate in degree with mass effect on the cauda equina nerve roots. There is unchanged mild spinal canal stenosis at L2/L3 and L4/L5 with neuroforaminal narrowing worst and [id number] in severity at L4-L5 bilaterally. There are annular fissures at L2/L3, L3/L4 and L4/L5. Discussed case with my attending physician Dr. Watson who agrees with patient transfer for acute cauda equina. > call out to [id number] -- I spoke with [facility] neurosurgery PA Torsten Turk. He, and his attending Dr. Carpio, have reviewed MRI/ results. They do not believe patient's current urinary incontinence is secondary to MRI findings. Torsten states that there is no acute intervention warranted at this time and does not recommend patient transfer. Recommending pain control/ steroids/ possible physical therapy. > on re-evaluation, patient continues to endorse 8/10 back pain, 10/10 with movement after receiving IV dilaudid. plan to admit patient for intractable pain. patient agreeable to admission at this time. [id number] -- spoke with hospitalist dr. ruelas who agrees to admission. Medications Administered Discontinued Medications Generic Name Dose Route Start Last Admin Trade Name Freq PRN Reason Stop Dose Admin Gadobutrol 10 ml 06/10/24 13:09 06/10/24 13:09 Gadobutrol 10 Ml Vial IVPUSH 06/10/24 13:10 10 ml ONCE ONE Administration Hydromorphone HCl 1 mg 06/10/24 11:20 06/10/24 11:57 Hydromorphone Hcl 1 Mg/Ml Syringe IVPUSH 06/10/24 11:21 1 mg ONCE ONE Administration Protocol Hydromorphone HCl 0.5 mg 06/10/24 15:11 06/10/24 15:29 Hydromorphone Hcl 1 Mg/Ml Syringe IVPUSH 06/10/24 15:12 0.5 mg ONCE ONE Administration Protocol Sodium Chloride 1,000 mls @ 999 mls/hr 06/10/24 11:30 06/10/24 12:58 Ns IV 06/10/24 12:30 Infused .Q1H1M VIOLETA Infusion Lidocaine 1 patch 06/10/24 11:20 06/10/24 15:29 Lidocaine 4 % Patch Adh..Patch TRANSDERMA 06/10/24 11:21 1 patch ONCE ONE Administration Protocol Lorazepam 0.5 mg 06/10/24 14:33 06/10/24 14:52 Lorazepam 2 Mg/Ml Vial IVPUSH 06/10/24 14:34 0.5 mg ONCE ONE Administration Prochlorperazine Maleate 5 mg 06/10/24 11:20 06/10/24 12:20 Prochlorperazine Maleate 5 Mg Tablet PO 06/10/24 11:21 5 mg ONCE ONE Administration Medical Decision Making Medical Decision Making [facility] Narrative: 43 year old female with pmhx significant for sacroiliitis s/p SI joint fusion (10/2023), degenerative disc disease at L5-S1, bipolar 2 disorder, vitamin b12 deficiency anemia, presents to the ED today with acute on chronic back pain and worsening urinary incontinence x3 days. Patient hypertensive to 141/90 and tachycardic to 104 on arrival. On initial examination, anxious and tearful. On physical exam, patient has a midline lumbar spinous tenderness without step-off deformity. strength 5/5 intact throughout. diminished sensation to right lateral thigh with light touch. normal rectal tone on BOZENA. Ambulating w/ slow but steady gait. positive straight leg raise on right. Differential diagnosis includes msk sprain, strain, lumbar radiculopathy, cauda equina. Plan for labs, MRI, pain control, bladder scan, re-evaluation. Differential Diagnosis Differential Diagnoses: The differential diagnosis associated with the presentation includes as above. Admission/Observation Consideration of admission/observation: Escalation of care including admission/observation considered Patient to be admitted to medicine for cauda equina with intractable pain. Consult Healthcare Provider Management of the patient was discussed with: Hospitalist (Dr. Ruelas) [facility] neurosurgery -- JEAN Turk (attending physician Dr. Carpio) Lab Data [facility] Lab Attestation statement: I reviewed the patient's lab results. as above. 06/10/24 11:33 06/10/24 11:57 Labs: Lab Results 06/10/24 06/10/24 Range/Units 11:33 11:57 WBC 9.0 (4.8-10.8) X10*3/uL RBC 4.93 (4.20-5.50) X10*6/uL Hgb 14.7 (12.0-16.0) g/dl Hct 42.9 (37.0-47.0) % MCV 87.0 (80.0-98.0) fL MCH 29.8 (27.0-33.0) pg MCHC 34.3 (31.0-35.0) g/dl RDW 13.6 (11.0-16.0) % Plt Count 317 (160-400) X10*3/uL MPV 10.2 (9.4-12.3) fL Immature Gran % (Auto) 0.4 (0.0-0.4) % Neut % (Auto) 67.0 (45-73) % Lymph % (Auto) 23.8 (20-40) % [facility] % (Auto) 8.2 (2-11) % Eos % (Auto) 0.2 (0-4) % Baso % (Auto) 0.4 (0-2) % Lymph # (Auto) 2.2 (1.2-4.9) X10*3/uL [facility] # (Auto) 0.7 (0.1-1.2) X10*3/uL Eos # (Auto) 0.0 (0.0-0.4) X10*3/uL Baso # (Auto) 0.0 (0.0-0.2) X10*3/uL Abs Immat Gran (auto) 0.04 H (0.00-0.03) X10*3/uL Absolute Neuts (auto) 6.0 (2.0-8.3) x10*3/uL Absolute Nucleated RBC 0.000 (0.0-0.012) X10*3/uL Nucleated RBC % (auto) 0.0 (0.0-0.2) /100WBC ESR 10 (0-20) MM/HR Sodium 142 (135-145) mmol/L Potassium 3.5 (3.3-5.1) mmol/L Chloride 113 H (96-108) mmol/L Carbon Dioxide 21 L (22-29) mmol/L Anion Gap 12 (12-20) BUN 10 (9-16) mg/dL Creatinine 0.79 (0.5-1.4) mg/dL Estim Creat Clear Calc 115.5 Estimated GFR > 60 Random Glucose 92 (60-115) mg/dL Calcium 9.1 D (8.4-10.2) mg/dL Magnesium 2.1 (1.6-2.6) mg/dL Total Bilirubin 0.3 (0.0-1.0) mg/dL AST 19 (5-31) U/L ALT 24 (0-31) U/L Alkaline Phosphatase 38 L (39-117) U/L C-Reactive Protein 0.13 (< or = 0.50) mg/dL Total Protein 7.3 (6.5-8.0) g/dL Albumin 4.7 (3.5-5.0) g/dL Beta HCG, Quant < 2 mIU/mL Independent Interpretation I performed an independent interpretation of an: CT Scan Interpretation: MRI lumbar spine showing lumbar spinal canal stenosis, agree with radiologist's interpretation. Radiology Impression Discussion of test interpretation with radiology: I have reviewed the radiologist's reading. Radiologist Impression: EXAMINATION: MR HIP WITH CONTRAST, RIGHT CLINICAL INFORMATION: Right hip pain. Evaluate for labral tear. COMPARISON: Radiograph dated 11/24/2023. TECHNIQUE: MRI of the right hip was performed after the intra-articular administration of a dilute gadolinium-containing solution on a high-field scanner. FINDINGS: LABRUM/CAPSULE: There is an ill-defined tear of the anteroinferior acetabular labrum between the 3 o'clock position and 2 o'clock position with focal detachment of the torn labral fragment in this region. The labrum is more blunted and irregular superolaterally. There is a separate tear of the posterosuperior labrum between the 12 o'clock position and 10 o'clock position which is longitudinal in orientation. No paralabral cyst. ALPHA ANGLE (at the anterior 3 o'clock position): 50.6 degrees ACETABULAR DEPTH: Normal. BONES AND ARTICULAR CARTILAGE: Marginal osteophytes are present at the acetabular rim posterosuperiorly. There is mild cortical irregularity at the femoral head-neck junction laterally. Minimal chondral surface irregularity is noted at the acetabular roof anterosuperiorly. No fracture or malalignment. No stress fracture or avascular necrosis. Pubic symphysis is unremarkable. MUSCLES AND TENDONS: Minimal gluteus minimus tendinosis. No tears. Hamstring and rectus femoris tendons are normal. Musculature is normal in signal intensity. Adductor aponeuroses are unremarkable. JOINT FLUID AND BURSAE: No bursitis. No apparent loose bodies within the joint. LIGAMENTUM TERES: Intact. INTRAPELVIC SOFT TISSUES: An IUD is in place within the uterus. No acute intrapelvic abnormalities are identified. No adenopathy. MR/MR hip RT w con IMPRESSION: 1. Tears of the anteroinferior and posterosuperior acetabular labrum. 2. 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 3. Minimal gluteus minimus tendinosis. EXAMINATION: Lumbar spine and pelvis. CLINICAL INDICATIONS: Sacroiliitis COMPARISON: MRI lumbar spine 05/22/2021 TECHNIQUE: Lumbar spine 4 views. Pelvis 1 view. FINDINGS: Lumbar spine: There is normal lumbar lordosis. The vertebral heights and alignment is normal. There is loss of L5/S1 disc height. Rest the disc heights, vertebral heights and alignment is normal. There is mild ventral spondylosis lower dorsal and upper lumbar spine. No aggressive lytic or sclerotic process seen. There is no visible acute fracture or dislocation. The paravertebral soft tissues are normal. Pelvis: A single AP view of the pelvis reveals normal symmetry of bilateral SI joints and hip joints. No sclerosis, fracture or dislocation seen. The soft tissues are normal. XR/XR lumbar spine 4V min IMPRESSION: Mild degenerative disc changes L5-S1 disc level with mild ventral spondylosis. No visible acute fracture, dislocation or subluxation seen. Unremarkable AP pelvis exam EXAMINATION: MR LUMBAR SPINE WITHOUT CONTRAST CLINICAL INFORMATION: Bilateral leg pain, weakness, numbness. Lower back pain. COMPARISON: Lumbar spine MRI dated 06/19/2014 TECHNIQUE: MRI of the lumbar spine was obtained using routine sequences without contrast. FINDINGS: VERTEBRAL BODIES AND PARASPINAL STRUCTURES: Normal vertebral body alignment. The lumbar lordosis is maintained. No acute fracture or subluxation. No loss of vertebral body height. Loss of intervertebral disc height with disc desiccation at T11-T12. Additional loss of intervertebral disc height with disc desiccation at L2-S1. Modic type II degenerative endplate changes at L5-S1. Vertebral body hemangioma within L3, unchanged. No acute marrow edema to suggest osseous injury. The visualized paraspinal soft tissues are unremarkable. CONUS MEDULLARIS AND CAUDA EQUINA: Normal, terminating at the level of L1. SPINAL LEVELS: T12-L1: No significant disc bulge. Bilateral facet arthropathy. No central canal or neural foraminal stenosis. L1-L2: New, right paracentral disc protrusion with bilateral facet arthropathy. No central canal or neural foraminal stenosis. L2-L3: Broad-based disc bulge with bilateral facet arthropathy and thickening of the ligamentum flavum causing minimal central canal stenosis which encroaches upon the traversing bilateral L3 nerve roots within the lateral recesses. Mild bilateral neural foraminal stenosis. Findings are similar when compared to the prior examination. L3-L4: Broad-based disc bulge with a superimposed right paracentral and subarticular disc protrusion, slightly more prominent when compared to the prior examination. This abuts the traversing right L4 nerve root within the lateral recess. Bilateral facet arthropathy with mild bilateral neural foraminal stenosis. L4-L5: Broad-based disc bulge with a shallow left paracentral disc protrusion. Bilateral facet arthropathy and thickening of the ligamentum flavum with mild central canal stenosis which encroaches upon the traversing bilateral L5 nerve roots within the lateral recesses, left greater than right. Additionally, this causes moderate bilateral neural foraminal stenosis. Findings are slightly progressed when compared to the prior examination. L5-S1: Broad-based disc bulge with a posterior central disc protrusion which contacts the traversing bilateral S1 nerve roots within the lateral recesses and is similar when compared to the prior examination. Bilateral facet arthropathy with mild bilateral neural foraminal stenosis, unchanged. MR/MR lumbar spine wo con IMPRESSION: 1. L3-L4 broad-based disc bulge and superimposed right paracentral and subarticular disc protrusion, slightly more prominent when compared to the prior examination which abuts the traversing right L4 nerve root. Bilateral facet arthropathy with mild bilateral neural foraminal stenosis. 2. Broad-based disc bulge at L4-L5 with a shallow left paracentral disc protrusion as well as bilateral facet arthropathy and thickening of the ligamentum flavum causing mild central canal stenosis which encroaches upon the traversing bilateral L5 nerve roots, left greater than right. Moderate bilateral neural foraminal stenosis. Findings are slightly progressed when compared to the prior examination. 3. Broad-based disc bulge at L5-S1 with a posterior central disc protrusion contacting the traversing bilateral S1 nerve roots as well as bilateral facet arthropathy and mild bilateral neural foraminal stenosis. Overall, findings are similar when compared to the prior examination. EXAMINATION: MR LUMBAR SPINE WITHOUT AND WITH CONTRAST CLINICAL INFORMATION: Worsening lumbar pain, urinary incontinence, rule out cauda equina syndrome COMPARISON: MR lumbar spine on 10/22/2020 TECHNIQUE: MRI of the lumbar spine was obtained using routine sequences with and without contrast. Intravenous contrast: Gadavist 10 mL FINDINGS: Preservation of the normal lumbar lordosis. Mild retrolisthesis at L2-3, L3-4, and L5-S1. No acute bone marrow abnormality or suspicious enhancement. The vertebral body heights are preserved. Multilevel disc desiccation with moderate disc height loss at L5-S1. The visualized spinal cord is normal in caliber. No abnormal cord signal or enhancement. The conus medullaris terminates at L1. T11-12: Diffuse disc bulge. No significant spinal canal or neural foraminal narrowing. T12/L1: No significant spinal canal or neural foraminal narrowing. L1-2: Shallow disc bulge. No significant spinal canal or neural foraminal narrowing. L2-3: Diffuse disc bulge, increased in size from prior. Superimposed annular fissure. Mild spinal canal stenosis, unchanged from prior. No significant neural foraminal narrowing. L3-4: Diffuse disc bulge with superimposed right paracentral disc protrusion. Annular fissure. Moderate spinal canal stenosis with mass effect on the cauda equina nerve roots, progressed from prior. Mild right greater than left neural foraminal narrowing, unchanged. The disc abutting the exiting L3 nerve roots bilaterally. L4-5: Diffuse disc bulge with superimposed annular fissure. Bilateral facet arthrosis and prominent dorsal epidural fat. Mild spinal canal stenosis, unchanged. Mild to moderate bilateral neural foraminal narrowing with the disc abutting the exiting L4 nerve roots bilaterally, also unchanged. L5-S1: Diffuse disc bulge with superimposed central disc protrusion. Bilateral facet arthrosis. Mild left greater than right neural foraminal narrowing with images covering the exiting L5 nerve roots bilaterally, unchanged. The paravertebral soft tissues are unremarkable. MR/MR lumbar spine wo/w con IMPRESSION: Multilevel lumbar spondylosis as detailed above. -At L3-4, spinal canal stenosis has progressed, now moderate in degree with mass effect on the cauda equina nerve roots. -Unchanged mild spinal canal stenosis at L2-3 and L4-5. Neuroforaminal narrowing is worst and mild to moderate at L4-5 bilaterally. -Annular fissures at L2-3, L3-4, and L4-5. Electronically signed by: Diana Herrera MD 06/10/2024 02:02 PM EDT RP External Record Review External record reviewed: Inpatient record, Office record, Outpatient record, Prior outpatient labs, Prior outpatient radiology, Primary care record and Outside ED record Prescription Management I considered prescription management with: Pain Medication Chronic Conditions Patient?s care impacted by: Other (DDD, sacroiliitis) Social Determinants Patient?s care significantly limited by Social Determinants of Health including: Other Social Determinant of Health Critical Care Time Critical Care Time Critical Care Time: Yes Total Critical Care Time: 42 Attestation: Critical care time in the amount of 42 minutes has been provided to the patient in terms of direct patient care, frequent reevaluation on IV dilaudid, consultation with hospitalist and neurosurgery, review and interpretation of medical data and results, and management of potentially life-threatening conditions. This is all outside of any medical procedures. Discharge Plan Discharge Clinical Impression: Cauda equina compression, Intractable back pain, Lumbar spondylolysis Patient Disposition: Admitted As Inpatient Print Language: Syriac
[2024-06-10 11:40] LABS: MANUAL DIFF FLAG NO
[2024-06-10 11:42] LABS: Basophils Percent Auto 0.4 % (0-2); Eosinophils Percent Auto 0.2 % (0-4); Hematocrit 42.9 % (37.0-47.0); Hemoglobin 14.7 g/dl (12.0-16.0); Imm Gran Abs Auto 0.04 X10*3/uL (0.00-0.03); Imm Gran Pct Auto 0.4 % (0.0-0.4); Lymphocytes Absolute Auto 2.2 X10*3/uL (1.2-4.9); Lymphocytes Percent Auto 23.8 % (20-40); Mean Corpuscular HGB Conc 34.3 g/dl (31.0-35.0); Mean Corpuscular Hemoglobin 29.8 pg (27.0-33.0); Mean Platelet Volume 10.2 fL (9.4-12.3); Monocytes Absolute Auto 0.7 X10*3/uL (0.1-1.2); Monocytes Percent Auto 8.2 % (2-11); Platelet Count 317 X10*3/uL (160-400); Red Blood Count 4.93 X10*6/uL (4.20-5.50); Red Cell Distribution Width 13.6 % (11.0-16.0)
[2024-06-10] MEDS: HYDROmorphone HCl 1 MG/ML SYRINGE IVPUSH ×2 (11:57→19:19)
[2024-06-10] MEDS: 0.9 % Sodium Chloride 1,000 ML 999 ML IV (11:57)
--- NOTE | 2024-06-10 12:01 | PC.NURSE ---
patient a&ox3, vss, pt c/o 05/10 back pain numbness/tingling down rt leg- increased weakness- using cane to ambulate. iv inserted, labs drawn, pt medicated for pain- holding lido patch until after MRI, mri form faxed, will continue plan of care
--- NOTE | 2024-06-10 12:10 | PC.NURSE ---
called pharmacy for missing meds
[2024-06-10] MEDS: Prochlorperazine Maleate 5 MG TABLET PO (12:20)
--- NOTE | 2024-06-10 12:22 | PC.NURSE ---
pt medicated with compazine per order. lido patch being held until after MRI
[2024-06-10 12:32] LABS: Alanine Aminotransferase 24 U/L (0-31); Albumin Level 4.7 g/dL (3.5-5.0); Alkaline Phosphatase 38 U/L (39-117); Anion Gap 12 (12-20); Aspartate Amino Transferase 19 U/L (5-31); Bilirubin Total 0.3 mg/dL (0.0-1.0); Blood Urea Nitrogen 10 mg/dL (9-16); Calcium 9.1 mg/dL (8.4-10.2); Carbon Dioxide 21 mmol/L (22-29); Chloride 113 mmol/L (96-108); Creatinine Clr Calc Pharmacy 115.5; Estimated Glomerular Filt Rate > 60; Glucose Random 92 mg/dL (60-115); Magnesium 2.1 mg/dL (1.6-2.6); Potassium 3.5 mmol/L (3.3-5.1); Sodium 142 mmol/L (135-145); Total Protein 7.3 g/dL (6.5-8.0)
[2024-06-10 12:34] LABS: HCG Quantitative < 2 mIU/mL
[2024-06-10] MEDS: gadobutroL 10 ML VIAL IVPUSH (13:09)
[2024-06-10] MEDS: LORazepam 2 MG/ML VIAL 0.5 MG IVPUSH (14:52)
[2024-06-10 15:02] LABS: C Reactive Protein 0.13 mg/dL (< or = 0.50)
[2024-06-10 15:19] VITALS: BP 117/62; PULSE 70; RESP 16; TEMP 36.8; O2SAT 97
[2024-06-10 15:29] LABS: Erythrocyte Sedimentation Rate 10 MM/HR (0-20)
[2024-06-10] MEDS: Lidocaine 4 % Patch ADH..PATCH 1 PATCH TRANSDERMA (15:29)
[2024-06-10] MEDS: HYDROmorphone HCl 1 MG/ML SYRINGE 0.5 MG IVPUSH (15:29)
--- NOTE | 2024-06-10 15:32 | PC.NURSE ---
pt medicated for 9/10 back pain
--- NOTE | 2024-06-10 17:04 | PM.IMHP ---
History of Present Illness Date of Service: 06/10/24 Attending physician on admission: [facility] Chief Complaint: Lower back pain Pt is a 43-year-old female with a PMH significant for?chronic lower back pain, sacroiliitis s/p right SI fusion (10/2023), HLD, hx of diverticulitis s/p resection and colostomy reversal, degenerative disc disease at L5-S1, vitamin B12 deficiency anemia, urinary stress incontinence, and bipolar 2 disorder who presents to the ED with?worsening lower back pain and stress incontinence x3 days. Pt recently presented to the ED on 05/05 with similar symptoms and discharged on p.o. steroids, methocarbamol, and oxycodone. Reports initially felt better, but symptoms began ?building back up again quickly?. Patient reports long history of stress incontinence, though for the past 3 days reports even small shifts in position lead to incontinence which is new for her. Lower back pain radiating down legs bilaterally to knees, has been significantly worse x3 days with reduced mobility. Uses a walker and cane at baseline, currently needs to walk with small steps as is unable to lift her feet or climb stairs. New numbness and tingling of lateral thigh with right greater than left. Nausea without vomiting secondary to pain. Denies trauma or recent falls. Denies urinary or fecal retention. No saddle anasthesia. Denies fever, chills, abdominal pain. No chest pain/pressure, palpitations. Denies shortness or breath or difficulty breathing. Patient notes she has lumbar spinal fusion surgery scheduled for 06/29/[address] Santizo in neurosurgery. In the ED pt was tachycardic up to 104 and mildly hypertensive at 141/90, vitals otherwise WNL. Labs were grossly unremarkable and baseline for patient. No leukocytosis. Stable H&H. No significant electrolyte abnormalities. Renal and hepatic function baseline. ESR WNL at 10. CRP WNL 0.13. MRI of lumbar spine found L3-L4 progression of spinal canal stenosis, now moderate in degree with mass effect on the cauda equina nerve roots. Also found unchanged mild spinal canal stenosis at L2-2 3 and L4-5. Bladder scan performed which found prevoid amount of 80 with postvoid scan of 3. ED clinician contacted [facility] neurosurgery and spoke with JEAN Turk who reviewed MRI with attending Dr. Carpio, who did not feel patient's current urinary incontinence with secondary to MRI findings. They did not feel there was any acute intervention warranted at this time and did not recommend patient transfer. Pt was treated with Dilaudid, prochlorperazine, IVF, lidocaine patch, and Ativan. Pt will be admitted to the hospital for treatment and further evaluation of acute on chronic intractable lower back pain. Review of Systems Review of Systems: Negative except for that which is stated in the HPI. [facility] Medical History Dyslipidemia Elevated cholesterol Anemia Sacroiliitis Sleep apnea Arthritis of knee, left History of abdominal hernia Bipolar 2 disorder Family History Father Hypertension Mother Pre-diabetes Hypertension Sister Cervical cancer Surgical History History of partial hypophysectomy H/O hernia repair History of colostomy reversal History of elbow surgery History of left oophorectomy History of partial surgical removal of colon History of total right knee replacement Social History Household Members: Other Household Members Other:: sister Housing: Apartment Housing Other:: third floor Are you a primary child care education coordinator to a significant other at home: No Do you presently have visiting nurse or other home services: No Alcohol intake: current Alcohol intake frequency: does not drink Patient Tobacco Use Status: Former Tobacco user Tobacco use type: Smokeless Tobacco Cigarettes Per Day: 4 Years Smoked: 20 years Smoked in Last 30 Days: No e-Cigarette/Vaping Use: Never Used Second Hand Smoke Exposure: No Use of substances other than those prescribed or required for medical reasons: Yes Substance Use Type: Marijuana Advance Directives: No Advance Directives Information Provided: No Do you have a plan to hurt others: No Plan Patient : No service: No Current occupational status: disabled Cognitive needs: No Hearing needs: No Vision needs: No Meds Allergies Allergy/AdvReac Type Severity Reaction Status Date / Time aloe vera [ALOE VERA] Allergy Intermediate RASH Verified 06/10/24 10:08 metoclopramide [From REGLAN] Allergy Intermediate antsy Verified 06/10/24 10:08 allopurinol Allergy Unknown does not Verified 06/10/24 10:08 remember gabapentin AdvReac Intermediate Muscle Verified 06/10/24 10:08 cramps pregabalin [From Lyrica] AdvReac Intermediate Muscle Verified 06/10/24 10:08 cramps Home Medications ?Medication ?Instructions ?Recorded ?Confirmed ?Last Taken ?Type trazodone 100 mg tablet 200 mg PO BEDTIME 09/19/21 03/02/24 03/01/24 History nystatin 100,000 unit/gram topical 1 appl topical BID PRN Rash 12/24/21 03/02/24 Unknown History powder topiramate 100 mg tablet 300 mg PO BEDTIME 01/08/23 03/02/24 03/01/24 History escitalopram oxalate 20 mg tablet 20 mg PO BEDTIME 03/02/24 03/02/24 03/01/24 History fluticasone propionate 50 2 spray intranasal DAILY PRN 03/02/24 03/02/24 Unknown History mcg/actuation nasal Allergies spray,suspension (Flonase Allergy Relief) naproxen sodium 220 mg tablet 220 mg PO DAILY PRN Pain 03/02/24 03/02/24 03/01/24 History (Aleve) norethindrone acetate 5 mg tablet 5 mg PO BEDTIME 03/02/24 03/02/24 03/01/24 History Physical Exam Vital Signs and Narrative: Vital Signs: Last Vital Signs Temp 98.2 F 06/10/24 15:19 Pulse 70 06/10/24 15:19 Resp 16 06/10/24 15:19 BP 117/62 06/10/24 15:19 Pulse Ox 97 06/10/24 15:19 O2 Del Method Room Air 06/10/24 15:19 BMI result Body Mass Index 38.4 General: AOx3, no acute distress Resp: CTA bilaterally CVS: S1, S2, RRR GI: +BS, NT, no distention Skin: Warm, dry Neuro: Cranial nerves II-XII grossly intact bilaterally. Motor grossly intact bilaterally. 2/5 strength of lower extremities bilaterally. Reduced sensation to light touch of lateral aspect of right lower extremity. Extremities: No edema Psych: Appropriate affect Results Labs 06/10/24 11:33 06/10/24 11:57 Labs: Laboratory Results - last 24 hr 06/10/24 06/10/24 11:33 11:57 MCV 87.0 MCH 29.8 MCHC 34.3 RDW 13.6 Plt Count 317 MPV 10.2 Immature Gran % (Auto) 0.4 Neut % (Auto) 67.0 Lymph % (Auto) 23.8 [place] % (Auto) 8.2 Eos % (Auto) 0.2 Baso % (Auto) 0.4 Lymph # (Auto) 2.2 [place] # (Auto) 0.7 Eos # (Auto) 0.0 Baso # (Auto) 0.0 Abs Immat Gran (auto) 0.04 H Absolute Neuts (auto) 6.0 Absolute Nucleated RBC 0.000 Nucleated RBC % (auto) 0.0 ESR 10 Anion Gap 12 Estim Creat Clear Calc 115.5 Estimated GFR > 60 Random Glucose 92 Calcium 9.1 D Magnesium 2.1 Total Bilirubin 0.3 AST 19 ALT 24 Alkaline Phosphatase 38 L C-Reactive Protein 0.13 Total Protein 7.3 Albumin 4.7 Beta HCG, Quant < 2 Imaging Radiologist's Impressions: Impressions Lumbar Spine MRI 06/10/24 11:20 IMPRESSION: Multilevel lumbar spondylosis as detailed above. -At L3-4, spinal canal stenosis has progressed, now moderate in degree with mass effect on the cauda equina nerve roots. -Unchanged mild spinal canal stenosis at L2-3 and L4-5. Neuroforaminal narrowing is worst and mild to moderate at L4-5 bilaterally. -Annular fissures at L2-3, L3-4, and L4-5. Electronically signed by: Diana Herrera MD 06/10/2024 02:02 PM EDT Assessment and Plan (1) Intractable back pain: Status: Acute (2) Urinary incontinence: Status: Acute Plan Pt is a 43-year-old female with a PMH significant for?chronic lower back pain, sacroiliitis s/p right SI fusion (10/2023), HLD, hx of diverticulitis s/p resection and colostomy reversal, degenerative disc disease at L5-S1, vitamin B12 deficiency anemia, urinary stress incontinence, and bipolar 2 disorder who presents to the ED with?worsening lower back pain and stress incontinence x3 days. Pt will be admitted to the hospital for treatment and further evaluation of acute on chronic intractable lower back pain. Acute on chronic intractable lower back pain Secondary to multilevel degenerative disc disease Pt with worsening urinary incontinence, no urinary or fecal retention, no saddle anesthesia MRI of spine found L3/L4 spinal canal stenosis progression, now moderate in degree with mass effect on the counter equina nerve roots ED contacted [facility] Neurosurgery JEAN Turk and Dr. Carpio who reviewed MRI and thought symptoms not secondary to MRI findings; did not think there was any acute intervention warranted or need for patient transfer at this time Will treat with Solu-Medrol IV 60 mg b.i.d., oxycodone p.o. and hydromorphone IV p.r.n. on pain scale, Robaxin t.i.d. PT consult Outpatient follow-up with neurosurgery, has lumbar spinal fusion surgery scheduled for 06/29/[address] Santizo D Continue statin B12 deficiency anemia H&H stable, at baseline On monthly injections Mood disorder Continue escitalopram, lorazepam Obesity class 2 Weight loss encouraged Full Code Attending:?Dr. Ruelas DVT Prophylaxis: Lovenox Pt will require a hospitalization of at least two nights for treatment of?acute on chronic intractable lower back pain secondary to multilevel degenerative disc disease. Given patient's worsening symptoms, inability to ambulate, and intractable pain, they will require hospital level care for administration of IV analgesics and IV steroids. Quality Stroke Does the patient have a stroke diagnosis?: No VTE Prior VTE?: No VTE Risk Level:: Medical - moderate - high VTE Device Contraindication: Treatment Not Indicated VTE Drug Contraindication: N/A - Med Ordered
[2024-06-10] MEDS: methylPREDNISolone Sod Succ 125 MG/2 ML VIAL 60 MG IVPUSH (19:18)
[2024-06-10] MEDS: Acetaminophen 325 MG TABLET 650 MG PO (19:19)
[2024-06-10] MEDS: Enoxaparin Sodium 40 MG/0.4 ML SYRINGE SUBCUT (19:21)
--- NOTE | 2024-06-10 19:22 | PC.NURSE ---
pt a&ox3, pt medicated for 9/10 pain per order, pt also medicated with steroids, pt requesting PO- will obtain something to eat and give to patient, call kcoh within reach, will continue to monitor
--- NOTE | 2024-06-10 19:30 | PHA.MEDREC ---
Addendum entered by Terence Aguiar RPh 06/10/24 19:41: MED REC CHECKED BY [facility] Original Note: Pharmacy Consult ? Medication Reconciliation Pharmacy has completed the medication reconciliation. Spoke to patient to confirm med list. Patient states she is no longer taking Flonase nasal spray, Nystatin 100,000 topical powder, and oxycodone 5 mg . Patient states Vitamin b-12 1,000 injection was Thursday06/06/04.
--- NOTE | 2024-06-10 20:58 | PC.NURSE ---
This nurse went in to check on the patient, found patient crying as she stated her pain was 8-9/10. Pt states the IVP dilaudid takes the edge off, brings down the pain to an 8 for a brief period of time. Her IVP medications are ordered for q4h and PO medications are only for pain of 4-6. This nurse has sent a tiger text to Dr. Bellamy regarding the patients pain to see if there is any other options. Will notify the charge nurse of this as well.
[2024-06-10] MEDS: oxyCODONE HCl Immed Release 5 MG TABLET 10 MG PO (21:19)
[2024-06-10] MEDS: methocarbamoL 750 MG TABLET PO (21:19)
--- NOTE | 2024-06-10 21:21 | PC.NURSE ---
oxycodone/pain Per tiger text conversation with Dr. Bellamy, he requested this nurse to give the 10mg oxycodone PO for her pain of 9/10 as patient was not due for dilaudid. Oxycodone pain scale is listed as 4-6, provider overriding the pain scale and this nurse gave the medication per provider request. Also discussed was changing the dilaudid to q2h which he is not wishing to do so at this time. Pt was medicated with the PO meds.
[2024-06-11 00:51] VITALS: BP 163/88; PULSE 79; RESP 16; TEMP 36.4; O2SAT 97
[2024-06-11] MEDS: 0.9 % Sodium Chloride Flush 3 ML SYRINGE IVFLUSH ×2 (01:28→10:18)
[2024-06-11] MEDS: ondansetron HCL 4 MG/2 ML VIAL IVPUSH (01:29)
[2024-06-11] MEDS: HYDROmorphone HCl 1 MG/ML SYRINGE IVPUSH ×3 (01:32→11:07)
[2024-06-11 04:00] VITALS: BP 116/64; PULSE 74; RESP 16; TEMP 36.7; O2SAT 96
[2024-06-11] MEDS: methylPREDNISolone Sod Succ 125 MG/2 ML VIAL 60 MG IVPUSH (06:30)
[2024-06-11 07:58] VITALS: BP 128/64; PULSE 70; RESP 16; TEMP 36.2; O2SAT 97
[2024-06-11] MEDS: oxyCODONE HCl Immed Release 5 MG TABLET 10 MG PO (10:12)
[2024-06-11] MEDS: methocarbamoL 750 MG TABLET PO (10:12)
[2024-06-11 10:13] VITALS: BP 128/64; PULSE 75; O2SAT 98
[2024-06-11] MEDS: Acetaminophen 325 MG TABLET 650 MG PO (11:07)
--- NOTE | 2024-06-11 12:54 | P.DS_ITS ---
DS: Providers Provider Date of Service: 06/11/24 Date of admission: 06/10/24 17:54 Primary care physician: BRIANNA Cruz DS: Diagnosis Discharge Diagnosis (1) Intractable back pain: Status: Acute (2) Urinary incontinence: Status: Acute DS: Summary Hospital Course Hospital Course: History and physical as per admitting provider. Pt is a 43-year-old female with a PMH significant for?chronic lower back pain, sacroiliitis s/p right SI fusion (10/2023), HLD, hx of diverticulitis s/p resection and colostomy reversal, degenerative disc disease at L5-S1, vitamin B12 deficiency anemia, urinary stress incontinence, and bipolar 2 disorder who presents to the ED with?worsening lower back pain and stress incontinence x3 days. Pt recently presented to the ED on 05/05 with similar symptoms and discharged on p.o. steroids, methocarbamol, and oxycodone. Reports initially felt better, but symptoms began ?building back up again quickly?. Patient reports long history of stress incontinence, though for the past 3 days reports even small shifts in position lead to incontinence which is new for her. Lower back pain radiating down legs bilaterally to knees, has been significantly worse x3 days with reduced mobility. Uses a walker and cane at baseline, currently needs to walk with small steps as is unable to lift her feet or climb stairs. New numbness and tingling of lateral thigh with right greater than left. Nausea without vomiting secondary to pain. Denies trauma or recent falls. Denies urinary or fecal retention. No saddle anasthesia. Denies fever, chills, abdominal pain. No chest pain/pressure, palpitations. Denies shortness or breath or difficulty breathing. Patient notes she has lumbar spinal fusion surgery scheduled for 06/29/[address] Santizo in neurosurgery. In the ED pt was tachycardic up to 104 and mildly hypertensive at 141/90, vitals otherwise WNL. Labs were grossly unremarkable and baseline for patient. No leukocytosis. Stable H&H. No significant electrolyte abnormalities. Renal and hepatic function baseline. ESR WNL at 10. CRP WNL 0.13. MRI of lumbar spine found L3-L4 progression of spinal canal stenosis, now moderate in degree with mass effect on the cauda equina nerve roots. Also found unchanged mild spinal canal stenosis at L2-2 3 and L4-5. Bladder scan performed which found prevoid amount of 80 with postvoid scan of 3. ED clinician contacted [facility] neurosurgery and spoke with JEAN Turk who reviewed MRI with attending Dr. Carpio, who did not feel patient's current urinary incontinence with secondary to MRI findings. They did not feel there was any acute intervention warranted at this time and did not recommend patient transfer. Pt was treated with Dilaudid, prochlorperazine, IVF, lidocaine patch, and Ativan. Pt will be admitted to the hospital for treatment and further evaluation of acute on chronic intractable lower back pain. 43-year-old woman with a history of chronic back pain, degenerative disc disease treated for intractable low back pain. She had an MRI of the spine which showed L3/L4 spinal canal stenosis progression with moderate mass effect of the cauda equina roots. The ER provider contacted [facility] Neurosurgery reviewed the MRI and did not think symptoms of worsening urge incontinence were secondary to MRI findings and there was no need for acute intervention or transfer to tertiary care facility. Patient was treated with IV Solu-Medrol, oxycodone, Dilaudid, Robaxin. She has is scheduled outpatient Neurosurgery on 06/29/[address] Valle. Plan is to discharge patient home on a short pr ednisone taper and pain medication. HLD Continue statin B12 deficiency anemia H&H stable, at baseline On monthly injections Mood disorder Continue escitalopram, lorazepam Obesity class 2 Weight loss encouraged Time Attestation Discharge Coordination Time (in mins): 35 Quality: Safe Use of Opioids Does Pt have an Active Cancer Diagnosis on the Problem List?: No Quality: Stroke Does the patient have a stroke diagnosis?: No Physical Exam Vital Signs: Vital Signs: Last Vital Signs Temp 97.2 F 06/11/24 07:58 Pulse 75 06/11/24 10:13 Resp 16 06/11/24 07:58 BP 128/64 06/11/24 10:13 Pulse Ox 98 06/11/24 10:13 O2 Del Method Room Air 06/11/24 07:58 BMI result Body Mass Index 38.4 Appearing in no acute distress head is normocephalic atraumatic eyes pupils are PERRLA sclera is anicteric mouth throat mucous membranes are intact and moist neck is supple no lymphadenopathy, no JVD noted lung sounds are clear to auscultation heart regular rate rhythm, clear S1, S2 positive bowel sounds, abdomen is soft, nontender neuro patient is alert x3, no focal deficits DS: Data Data Completed and Pending Labs on day of discharge: Laboratory Results - last 24 hr 06/10/24 06/10/24 11:33 11:57 ESR 10 C-Reactive Protein 0.13 Discharge Plan Discharge Anticipated Discharge Date/Time: 06/11/24 12:26 Patient Disposition: Home, Self-Care Discharge Diagnosis: Intractable back pain Referrals: Todd Rice, [employer] [facility] [Primary Care Provider] - 1 Week Discharge Medications: New methocarbamol 750 mg Tablet 750 mg PO TID Qty: 9 0RF oxycodone 5 mg Tablet 5 mg PO Q4H PRN (Reason: Pain, Moderate(Pain Scale 4-6)) Qty: 24 0RF Rx Instructions: Partial Fill upon patient request. prednisone 10 mg tablet See Taper PO DIRECTED Qty: 20 0RF Taper: Prednisone 40 mg daily for 2 Days and 0 Hour 30 mg daily for 2 Days and 0 Hour 20 mg daily for 2 Days and 0 Hour 10 mg daily for 2 Days and 0 Hour Rx Instructions: see taper instructions Continued (DME) cpap mask/supplies See Rx Instructions .Route .MEDSUPPLY Qty: 1 3RF Rx Instructions: Mask for CPAP and any other tubing or supplies. (DME) sacroiliac cushion See Rx Instructions .Route .MEDSUPPLY Qty: 1 0RF Rx Instructions: As directed (DME) wedge pillow for under knees See Rx Instructions .Route .MEDSUPPLY Qty: 1 0RF Rx Instructions: As directed (DME) crutches See Rx Instructions .Route .MEDSUPPLY Qty: 1 0RF Rx Instructions: crutches dx: sacroiliac fusion patient non weight bearing right leg cyanocobalamin (vitamin B-12) 1,000 mcg/mL solution 1,000 mcg IM .Q3 weeks 21 Days Qty: 25 2RF Rx Instructions: In office injections scopolamine base 1 mg over 3 days patch 3 day 1 patch transdermal Q3D PRN (Reason: motion sickness) Qty: 24 0RF Rx Instructions: Uses for about a week after doing her Vitamin B-12 injection. atorvastatin 20 mg tablet 20 mg PO BEDTIME 90 Days Qty: 90 0RF (DME) BD Integra Syringe 3 mL 25 gauge x 1 syringe See Rx Instructions .Route Qty: 100 1RF Rx Instructions: q 3 weeks trazodone 100 mg tablet 200 mg PO BEDTIME norethindrone acetate 5 mg tablet 10 mg PO BEDTIME escitalopram oxalate 20 mg tablet 20 mg PO BEDTIME naproxen sodium [Aleve] 220 mg Tablet 220 mg PO DAILY PRN (Reason: Pain) topiramate 100 mg tablet 300 mg PO BEDTIME Discharge Orders: Discharge Order (Routine); Ordered 06/11/24 Ordered By: Nissa Mistry Diet: Advance to usual diet Activity on Discharge: As tolerated Stand Alone Forms: Patient Portal Discharge page Print Language: Uruguayan Care Plan Goals: Follow-up with Neurosurgery for your scheduled surgical procedure Health Concerns: Intractable back pain Plan of Treatment: Follow-up with primary care provider as needed Take all medications as prescribed Assessment: See discharge summary
--- NOTE | 2024-06-11 13:28 | MHC.CM.PN ---
PT CLEARED TO DC HOME TODAY WITH NO SERVICES
--- NOTE | 2024-06-11 13:40 | MHC.CM.PN ---
PT REPORTS SHE LIVES WITH HER SISTER WHO IS HER PARA OPERATOR FOR 9 HOURS PER WEEK SHE REPORTS SHE JUST HAD AN ASSESSMENT TO INCREASE HOURS AND WILL HAVE ANOTHER AFTER HER BACK SURGERY July SHE USES A CANE FOR MOBILITY SHE REPORTS HER SISTER IS HER HCP PCP: JASPREET COWAN IMM DELIVERED DCP: HOME RESUME PARA OPERATOR VIA SELF TRANSPORT
== END 2024-06-11 14:29 | disposition home or self-care (01) | DRG 552 ==
LOC: HO.ED 16:51 → HO.EDOVER 18:42 → HO.S3 23:42
PROVIDERS: Physician Assistant Medical; Admitting Provider Student in an Organized Health Care Education/Training Program; Emergency Provider Emergency Medicine; PCP Nurse Practitioner Family; Visit Provider Nurse Practitioner Acute Care
DX: M51.370 Other intervertebral disc degeneration, lumbosacral region with discogenic back pain only (principal); F31.81 Bipolar II disorder; M48.07 Spinal stenosis, lumbosacral region; E66.812 Obesity, class 2; G89.29 Other chronic pain; E78.5 Hyperlipidemia, unspecified; R32 Unspecified urinary incontinence; E53.8 Deficiency of other specified B group vitamins; Z68.38 Body mass index [BMI] 38.0-38.9, adult; Z71.3 Dietary counseling and surveillance; Z98.1 Arthrodesis status; Z87.891 Personal history of nicotine dependence; Z79.899 Other long term (current) drug therapy
CPT/HCPCS: 36415; 72158; 80053; 83735; 84702; 85025; 85652; 86140; 96361; 96372; 96374; 96375; 96376; 97161; 99221; 99285; A9585; J1171; J1650; J2060; J2405; J2919

== ENCOUNTER → 2024-06-10 17:54 | Outpatient (BNV) | payer OTHER, SELFPAY | PROVIDERS: Admitting Provider Student in an Organized Health Care Education/Training Program; Emergency Provider Emergency Medicine; PCP Nurse Practitioner Family; Visit Provider Student in an Organized Health Care Education/Training Program | DX: M54.50 Low back pain, unspecified (principal); R26.89 Other abnormalities of gait and mobility; R32 Unspecified urinary incontinence | CPT/HCPCS: 99222; 99239 ==

== ENCOUNTER 2024-06-14 15:07 | Outpatient (AMB) | payer OTHER, SELFPAY ==
[2024-06-14 15:10] VITALS: BP 160/80; PULSE 72; O2SAT 97; BMI 39.2
--- NOTE | 2024-06-14 15:10 | A.OFFPC_ITS ---
Vital Signs 06/14/24 15:10 Height 5 ft 7 in Weight 250 lb BMI 39.2 BP 160/80 H Blood Pressure Location Rt brachial Position Sitting Pulse 72 Pulse Source Pulse Oximeter Pulse Oximetry (%) 97 Oxygen Delivery Method Room Air Intake Visit Reasons: Lumbar Fusion Surgery on 06/29/24 Intake Note: pt is here for pre op for Lumbar Fusion Surgery on 06/29/24. patient needs EKG and labs Dramatic Coach Required: No Accompanied by: Self / Same As Patient Allergies aloe vera [ALOE VERA] Allergy (Intermediate, Verified 06/14/24 15:11) RASH metoclopramide [From REGLAN] Allergy (Intermediate, Verified 06/14/24 15:11) antsy allopurinol Allergy (Unknown, Verified 06/14/24 15:11) does not remember gabapentin Adverse Reaction (Intermediate, Verified 06/14/24 15:11) Muscle cramps pregabalin [From Lyrica] Adverse Reaction (Intermediate, Verified 06/14/24 15:11) Muscle cramps Medication List - Last Reconciled 06/14/24 by JEN Beckwith-ANDRE atorvastatin 20 mg PO BEDTIME 90 days [cpap mask/supplies Mask for CPAP and any other tubing or supplies.] [crutches crutches dx: sacroiliac fusion patient non weight bearing right leg ] cyanocobalamin (vitamin B-12) 1,000 mcg IM .Q3 weeks 21 days escitalopram oxalate 20 mg PO BEDTIME methocarbamol 750 mg PO TID 12 days naproxen sodium (Aleve) 220 mg PO DAILY PRN norethindrone acetate 10 mg PO BEDTIME oxycodone 10 mg PO Q8H PRN 12 days prednisone See Taper mg PO DIRECTED [sacroiliac cushion As directed] scopolamine base 1 patch transdermal Q3D PRN syringe with needle, safety (BD Integra Syringe) q 3 weeks topiramate 300 mg PO BEDTIME trazodone 200 mg PO BEDTIME [wedge pillow for under knees As directed] Tobacco use date assessed: 06/14/24 Dental Screening Dental Screen Date: 06/14/24 Did you have a dental visit in the last 12 months?: Yes Did you have a dental problem in the last 6 months where you did not have access to dental care?: No Was dental information given to patient?: Patient has dentist HPI Lumbar Fusion Surgery on 06/29/24 HPI Details Pt is here for a Pre-op for lumbar fusion surgery. Recently seen in ER. History of chronic lower back pain with degenerative disc disease. She reported some urinary incontinence with the pain. MRI showed L3 and L4 spinal canal stenosis progression with moderate mass effect of the cauda equina roots. Neurosurgeon at [facility] was contacted and reviewed the MRI and did not think her urge incontinence was related to the MRI findings. She was treated IV Solu- Medrol, oxycodone, Dilaudid, Robaxin. She is scheduled with Dr. Waddell on 06/29/2024 for this lumbar fusion. She was also discharged on a prednisone taper and pain medication. Today, pt is in tears, is nervous about the surgery and is fairly uncomfortable in the exam room today. I will cont her muscle relaxor and narcotic pain medication. Pt knows she cannot share this medication, take only as prescribed, and not to drive while on this medication. Pt acknowledged understanding this. NOTE: BP elevated related to pt being extremely anxious and in pain. [facility] Medical History Dyslipidemia Elevated cholesterol Anemia Sacroiliitis Sleep apnea Arthritis of knee, left History of abdominal hernia Bipolar 2 disorder Surgical History History of partial hypophysectomy H/O hernia repair History of colostomy reversal History of elbow surgery History of left oophorectomy History of partial surgical removal of colon History of total right knee replacement Family History Father Hypertension Mother Pre-diabetes Hypertension Sister Cervical cancer Social History Household Members: Family Household Members Other:: sister Housing: Apartment Housing Other:: third floor Are you a primary insurance healthcare consultant to a significant other at home: No Do you presently have visiting nurse or other home services: Yes ([employer]IVE) Alcohol intake: current Alcohol intake frequency: does not drink Patient Tobacco Use Status: Former Tobacco user Tobacco use type: Smokeless Tobacco Cigarettes Per Day: 4 Years Smoked: 20 years e-Cigarette/Vaping Use: Never Used Second Hand Smoke Exposure: No Substance Use Type: Marijuana service: No Current occupational status: disabled Cognitive needs: No Hearing needs: No Vision needs: No Questionnaire PHQ-9 Over the last 2 weeks, how often have you been bothered by any of the following problems? 1. Little interest or pleasure in doing things: nearly every day 2. Feeling down, depressed, or hopeless: several days 3. Trouble falling or staying asleep, or sleeping too much: more than half the days 4. Feeling tired or having little energy: more than half the days 5. Poor appetite or overeating: more than half the days 6. Feeling bad about yourself - or that you are a failure or have let yourself or your family down: not at all 7. Trouble concentrating on things, such as reading the newspaper or watching television: several days 8. Moving or speaking so slowly that other people could have noticed. Or the opposite - being so fidgety or restless that you have been moving around a lot more than usual: not at all 9. Thoughts that you would be better off or of hurting yourself in some way: not at all Total score: 11 Depression Screening Interpretation: Positive (denies any SI or HI ) Depression Screening Follow-up: Existing condition and In treatment Depression Screening Done: Yes 09922 - PHQ-9 Billing: Yes Source: Developed by Drs. Jeffrey Mcintosh, Robyn Turk, Shahid Benavidez and colleagues, with an educational suhail from [employer]. Thrive Questionnaire Date Thrive assessed: 06/14/24 I am a: Patient What is your living situation today?: I have a steady place to live Within the past 12 months, did the food you bought not last and you didn't have the money to get more?: I choose not to answer this question Within the past 12 months, did you worry whether your food would run out before you got money to buy more?: I choose not to answer this question Do you have trouble paying for medicines?: No Do you have trouble getting transportation to medical appointments?: Yes Do you have trouble paying your heating and electricity bill?: I choose not to answer this question Do you have trouble taking care of your child, family member or friend?: Yes Do you have trouble with day-to-day activities such as bathing, preparing meals, shopping, managing finances, etc.?: Yes Are you interested in more education?: No Please select the resources that you would like help with: None Currently or been in a relationship where the following occur: I choose not to answer THRIVE Score: 1 AUDIT C Alcohol Use Questionnaire (AUDIT-C) 1. How often do you have a drink containing alcohol?: Monthly or less 2. How many drinks containing alcohol do you have on a typical day when you are drinking?: 1 or 2 3. How often do you have six or more drinks on one occasion?: Never Total Score: 1 Score Reviewed/Action Taken: Yes LUZ-7 AMB Questionnaire LUZ-7 Date LUZ - 7 assessed: 06/14/24 Feeling nervous, anxious, or on edge: 1 = Several days Not being able to stop or control worryin = Not at all Worrying too much about different things: 0 = Not at all Trouble relaxin = Several days Being so restless that it is hard to sit still: 0 = Not at all Becoming easily annoyed or irritable: 0 = Not at all Feeling afraid as if something awful might happen: 0 = Not at all Total LUZ-7 score (0-4 normal; 5-9 mild; 10-14 moderate; 15-21 severe): 2 Source: Developed by Drs. Jeffrey Mcintosh, Robyn Turk, Shahid Benavidez and colleagues, with an educational suhail from [employer]. LUZ-7 Assessment Billing LUZ-7 Assessment Tool: LUZ-7 Assessment 59861 Physical exam (Primary Care) Vital Signs: Last Vital Signs Pulse 72 06/14/24 15:10 BP 160/80 H 06/14/24 15:10 Pulse Ox 97 06/14/24 15:10 Oxygen Delivery Method Room Air 06/14/24 15:10 BMI result Body Mass Index 39.2 Tobacco/Smoking Status: Tobacco use Status Tobacco use date assessed 06/14/24 06/14/24 15:13 Patient Tobacco Use Status Former Tobacco user 06/14/24 15:13 Tobacco use type Smokeless Tobacco 06/14/24 15:13 e-Cigarette/Vaping Use Never Used 06/14/24 15:13 PHQ-9: PHQ-9 Score PHQ-9: Total score 11 06/14/24 15:28 Depression Screening Interpretation: Positive (denies any SI or HI ) Depression Screening Follow-up: Existing condition and In treatment Thrive Assessment: Date of Thrive Assessment Date Thrive assessed 06/14/24 06/14/24 15:13 Currently or been in a relationship where the following occur: I choose not to answer Const Other: using a cane General: anxious Nutritional Appearance: obese Orientation/consciousness: patient oriented x3 HENMT Throat: Yes posterior oropharynx normal Neck Lymphatic: no lymphadenopathy noted Resp Effort & Inspection: normal respiratory effort Auscultation: clear to auscultation bilaterally Cardio Rate: regular rate Rhythm: regular rhythm Heart sounds: S1 normal heart sound present, S2 normal heart sound present and no murmurs Neuro General: patient oriented x3 Psych Appearance: grossly normal Mental Status: mental status grossly normal Speech and movement: Pressured speech present and Restless speech present Affect: Anxious affect present Attitude: cooperative Thought process: Normal thought process present Thought content: Normal thought content present Insight: Good insight present (Psych) Judgement: Good judgement present (Psych) Coding Level of Care Code Est Pt Prev Care 40-64y(98055) Diagnoses Pre-op evaluation Z01.818 Additional Codes LUZ-7 Assessment Billing - LUZ-7 Assessment Tool: LUZ-7 Assessment 16310 ([id number]) Assessment & Plan Assessment & Plan (1) Pre-op evaluation: Code(s): Z01.818 - Encounter for other preprocedural examination Category: Medical Plan lab orders entered, EKG already signed off on Orders: Orders ABO RH Type Today Z01.818 - Encounter for other preprocedural examination Prothrombin Time INR Today Z01.818 - Encounter for other preprocedural examination Partial Thromboplastin Time Today Z01.818 - Encounter for other preprocedural examination Complete Blood Count Auto Diff Today Z01.818 - Encounter for other preprocedural examination Comprehensive Met. Panel Today Z01.818 - Encounter for other preprocedural examination TSH reflex Free T4 Today Z01.818 - Encounter for other preprocedural examination AMB EKG-In Office Today Z01.818 - Encounter for other preprocedural examination Medications: Changed From methocarbamol 750 mg PO TID 9 tabs 0RF To methocarbamol 750 mg PO TID 12 days 36 tabs 0RF From oxycodone Partial Fill upon patient request. 5 mg PO Q4H PRN 24 tabs 0RF Pain, Moderate(Pain Scale 4-6) To oxycodone Partial Fill upon patient request. 10 mg PO Q8H 12 days PRN 36 tabs 0RF Pain, Moderate(Pain Scale 4-6)
== END 2024-06-14 16:11 | disposition home or self-care (01) ==
PROVIDERS: PCP Nurse Practitioner Family; Visit Provider Nurse Practitioner Family
DX: Z01.818 Encounter for other preprocedural examination (principal)

== ENCOUNTER → 2024-06-14 15:07 | Outpatient (BNVA) | payer OTHER, SELFPAY | PROVIDERS: PCP Nurse Practitioner Family; Visit Provider Nurse Practitioner Family | DX: Z01.818 Encounter for other preprocedural examination (principal) | CPT/HCPCS: 96127; 99212 ==

== ENCOUNTER 2024-06-29 06:11 | Inpatient (IN) | payer OTHER, SELFPAY ==
[2024-06-16 10:28] VITALS: BMI 39.8
[2024-06-16 10:33] VITALS: BP 139/79; PULSE 76; RESP 18; O2SAT 99
--- NOTE | 2024-06-16 10:46 | HO.ANESPROP2 ---
Documented by User: Shreya Webster NP 06/16/24 10:56 HPI - Anesthesia Eval Consult details Narrative: 44yo F for L5-S1 Oblique Lumbar Interbody Fusion, 06/29/24 s/p SI joint fusion 10/2023 with GA-ETT 7 SORAIDA: No symptoms with weight loss Very anxious Discussed THC vape. Recommned no use 3 days prior to surgery. Pt verbalized understanding. PMFSH Active Problems Active Problems: All Active Problems Pre-op evaluation (Acute) Urinary incontinence (Acute) Lumbar spondylolysis (Acute) Intractable back pain (Acute) Cauda equina compression (Acute) Arthritis of right hip (Acute) Arthritis of left hip (Acute) DJD (degenerative joint disease), lumbosacral (Acute) Intractable back pain (Acute) Right hip pain (Acute) Hip pain (Acute) Sacroiliitis (Acute) Chronic radicular pain of lower back (Acute) Abnormal bruising (Acute) Sleep apnea (Acute) Diverticulosis (Acute) Elevated TSH (Acute) Right knee pain (Acute) Iron deficiency (Acute) B12 deficiency (Acute) Anemia (Acute) Fatigue (Acute) Chronic lower back pain (Acute) Enlarged thyroid (Acute) Vitamin D deficiency (Acute) Screening for cervical cancer (Acute) Physical exam (Acute) Dyslipidemia (Acute) Past Medical History Medical History History of marijuana use Arthritis Diverticulitis Stress incontinence Anxiety Depression Vitamin B12 deficiency Elevated cholesterol Anemia Sacroiliitis Sleep apnea Arthritis of knee, left History of abdominal hernia Dyslipidemia Bipolar 2 disorder Family History Family History Father Hypertension Mother Pre-diabetes Hypertension Sister Cervical cancer Family history of problems with anesthesia: No Surgical History Surgical History H/O colonoscopy History of partial hypophysectomy H/O hernia repair History of colostomy reversal History of elbow surgery History of left oophorectomy History of partial surgical removal of colon History of total right knee replacement History of Problems with Anesthesia: No Social History Social History Household Members: Family Household Members Other:: sister Housing: Apartment Housing Other:: third floor Are you a primary career technical supervisor to a significant other at home: No Do you presently have visiting nurse or other home services: 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 If so, by whom?: No Are you DNR?: No Advance Directives: No Advance Directives Information Provided: No Advance Directives on File: No Recently lost weight without trying: No Eating poorly because of decreased appetite: No Nutrition Risks: No Nutritional Risk Patient : No : No Poor oral hygiene: Yes (missing teeth) service: No Current occupational status: disabled Cognitive needs: No Hearing needs: No Vision needs: No Meds Allergies Allergy/AdvReac Type Severity Reaction Status Date / Time aloe vera [ALOE VERA] Allergy Intermediate RASH Verified 06/14/24 15:11 metoclopramide [From REGLAN] Allergy Intermediate antsy Verified 06/14/24 15:11 allopurinol Allergy Unknown does not Verified 06/14/24 15:11 remember gabapentin AdvReac Intermediate Muscle Verified 06/14/24 15:11 cramps pregabalin [From Lyrica] AdvReac Intermediate Muscle Verified 06/14/24 15:11 cramps Home Medications ?Medication ?Instructions ?Recorded ?Confirmed ?Last Taken ?Type trazodone 100 mg tablet 200 mg PO BEDTIME 09/19/21 06/29/24 06/28/24 History topiramate 100 mg tablet 300 mg PO BEDTIME 01/08/23 06/16/24 06/28/24 History escitalopram oxalate 20 mg tablet 20 mg PO BEDTIME 03/02/24 06/16/24 06/28/24 History norethindrone acetate 5 mg tablet 10 mg PO BEDTIME 03/02/24 06/16/24 06/28/24 History biotin 5 mg tablet 5 mg PO DAILY 06/16/24 06/16/24 06/28/24 History lorazepam 1 mg tablet 1 mg PO DAILY PRN Anxiety 06/16/24 06/16/24 06/29/24 04:00 History prochlorperazine maleate 10 mg 10 mg PO BID PRN Nausea 06/16/24 06/16/24 Unknown History tablet (Compazine) Exam Height,Weight and Vital Signs: Height 5 ft 7 in Weight 115.212 kg Last Vital Signs Pulse 76 06/16/24 10:33 Resp 18 06/16/24 10:33 BP 139/79 06/16/24 10:33 Pulse Ox 99 06/16/24 10:33 O2 Del Method Room Air 06/16/24 10:33 Pertinent Lab Results Pertinent Lab Results: Laboratory Tests 06/10/24 06/10/24 11:33 11:57 WBC 9.0 Hgb 14.7 Hct 42.9 Plt Count 317 Sodium 142 Potassium 3.5 Chloride 113 H Carbon Dioxide 21 L BUN 10 Creatinine 0.79 Narrative Narrative: EKG 05/2024 NSR @ 62 ST-T wave abn Airway Mallampati Class: I TM Dist: >3cm Neck ROM: Full Loose/Missing/Broken Teeth: Yes (Only bottom front teeth remain ~ #27 broken. None loose per pt) Heart: RRR Lungs: CTAB Assessment and Plan Assessment Anesthesia Assessment: Anesthesia Plan Discussed and PAT Visit Final Anesthetic Review Family History of Problems with Anesthesia: No History of Problems with Anesthesia: No Documented by User: Delisa Escobar MD 06/29/24 08:18 HPI - Anesthesia Eval Consult details Narrative: 44yo F for L5-S1 Oblique Lumbar Interbody Fusion, 06/29/24 s/p SI joint fusion 10/2023 with GA-ETT 7 SORAIDA: No symptoms with weight loss Very anxious Discussed THC vape. Recommend no use 3 days prior to surgery. Pt verbalized understanding. PMFSH Active Problems Active Problems: All Active Problems Pre-op evaluation (Acute) Urinary incontinence (Acute) Lumbar spondylolysis (Acute) Intractable back pain (Acute) Cauda equina compression (Acute) Arthritis of right hip (Acute) Arthritis of left hip (Acute) DJD (degenerative joint disease), lumbosacral (Acute) Intractable back pain (Acute) Right hip pain (Acute) Hip pain (Acute) Sacroiliitis (Acute) Chronic radicular pain of lower back (Acute) Abnormal bruising (Acute) Sleep apnea (Acute)- not using CPAP. SORAIDA better since 100# weight loss Diverticulosis (Acute) Elevated TSH (Acute) Right knee pain (Acute) Iron deficiency (Acute) B12 deficiency (Acute) Anemia (Acute) Fatigue (Acute) Chronic lower back pain (Acute) Enlarged thyroid (Acute) Vitamin D deficiency (Acute) Screening for cervical cancer (Acute) Physical exam (Acute) Dyslipidemia (Acute) ? h/o Partial Hypophysectomy. Patient unaware Daily marijuana Past Medical History Medical History History of marijuana use Arthritis Diverticulitis Stress incontinence Anxiety Depression Vitamin B12 deficiency Elevated cholesterol Anemia Sacroiliitis Sleep apnea Arthritis of knee, left History of abdominal hernia Dyslipidemia Bipolar 2 disorder Family History Family History Father Hypertension Mother Pre-diabetes Hypertension Sister Cervical cancer Family history of problems with anesthesia: No Surgical History Surgical History H/O colonoscopy History of partial hypophysectomy H/O hernia repair History of colostomy reversal History of elbow surgery History of left oophorectomy History of partial surgical removal of colon History of total right knee replacement History of Problems with Anesthesia: No Social History Social History Household Members: Family Household Members Other:: sister Housing: Apartment Housing Other:: third floor Are you a primary career technical supervisor to a significant other at home: No Do you presently have visiting nurse or other home services: 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 If so, by whom?: No Are you DNR?: No Advance Directives: No Advance Directives Information Provided: No Advance Directives on File: No Recently lost weight without trying: No Eating poorly because of decreased appetite: No Nutrition Risks: No Nutritional Risk Patient : No : No Poor oral hygiene: Yes (missing teeth) service: No Current occupational status: disabled Cognitive needs: No Hearing needs: No Vision needs: No Meds Allergies Allergy/AdvReac Type Severity Reaction Status Date / Time aloe vera [ALOE VERA] Allergy Intermediate RASH Verified 06/14/24 15:11 metoclopramide [From REGLAN] Allergy Intermediate antsy Verified 06/14/24 15:11 allopurinol Allergy Unknown does not Verified 06/14/24 15:11 remember gabapentin AdvReac Intermediate Muscle Verified 06/14/24 15:11 cramps pregabalin [From Lyrica] AdvReac Intermediate Muscle Verified 06/14/24 15:11 cramps Home Medications ?Medication ?Instructions ?Recorded ?Confirmed ?Last Taken ?Type trazodone 100 mg tablet 200 mg PO BEDTIME 09/19/21 06/29/24 06/28/24 History topiramate 100 mg tablet 300 mg PO BEDTIME 01/08/23 06/16/24 06/28/24 History escitalopram oxalate 20 mg tablet 20 mg PO BEDTIME 03/02/24 06/16/24 06/28/24 History norethindrone acetate 5 mg tablet 10 mg PO BEDTIME 03/02/24 06/16/24 06/28/24 History biotin 5 mg tablet 5 mg PO DAILY 06/16/24 06/16/24 06/28/24 History lorazepam 1 mg tablet 1 mg PO DAILY PRN Anxiety 06/16/24 06/16/24 06/29/24 04:00 History prochlorperazine maleate 10 mg 10 mg PO BID PRN Nausea 06/16/24 06/16/24 Unknown History tablet (Compazine) Exam Height,Weight and Vital Signs: Height 5 ft 7 in Weight 115.212 kg Last Vital Signs Pulse 76 06/16/24 10:33 Resp 18 06/16/24 10:33 BP 139/79 06/16/24 10:33 Pulse Ox 99 10/17/24 10:33 O2 Del Method Room Air 06/16/24 10:33 Vital Signs Temp Pulse Resp BP Pulse Ox O2 Del Method 06/29/24 06:45 98.6 F 79 16 128/67 96 Room Air Pertinent Lab Results Pertinent Lab Results: Laboratory Tests 06/10/24 06/10/24 11:33 11:57 WBC 9.0 Hgb 14.7 Hct 42.9 Plt Count 317 Sodium 142 Potassium 3.5 Chloride 113 H Carbon Dioxide 21 L BUN 10 Creatinine 0.79 Lab Results 06/16/24 06/16/24 06/29/24 Range/Units 11:10 11:21 06:12 WBC 11.4 H (4.8-10.8) X10*3/uL RBC 4.84 (4.20-5.50) X10*6/uL Hgb 14.2 (12.0-16.0) g/dl Hct 43.0 (37.0-47.0) % MCV 88.8 (80.0-98.0) fL MCH 29.3 (27.0-33.0) pg MCHC 33.0 (31.0-35.0) g/dl RDW 13.5 (11.0-16.0) % Plt Count 334 (160-400) X10*3/uL MPV 10.2 (9.4-12.3) fL Immature Gran % (Auto) 0.9 H (0.0-0.4) % Neut % (Auto) 45.5 (45-73) % Lymph % (Auto) 45.2 H (20-40) % Stephens % (Auto) 7.5 (2-11) % Eos % (Auto) 0.5 (0-4) % Baso % (Auto) 0.4 (0-2) % Lymph # (Auto) 5.2 H (1.2-4.9) X10*3/uL Stephens # (Auto) 0.9 (0.1-1.2) X10*3/uL Eos # (Auto) 0.1 (0.0-0.4) X10*3/uL Baso # (Auto) 0.1 (0.0-0.2) X10*3/uL Abs Immat Gran (auto) 0.10 H (0.00-0.03) X10*3/uL Absolute Neuts (auto) 5.2 (2.0-8.3) x10*3/uL Absolute Nucleated RBC 0.000 (0.0-0.012) X10*3/uL Nucleated RBC % (auto) 0.0 (0.0-0.2) /100WBC Smear Tech's Comments VERIFIED PT 10.6 L (10.9-12.4) SEC INR 0.9 (0.9-1.1) APTT 27.5 (26.0-36.8) SEC Sodium 140 (135-145) mmol/L Potassium 3.4 (3.3-5.1) mmol/L Chloride 110 H (96-108) mmol/L Carbon Dioxide 21 L (22-29) mmol/L Anion Gap 12 (12-20) BUN 11 (9-16) mg/dL Creatinine 0.86 (0.5-1.4) mg/dL Estim Creat Clear Calc 107.1 Estimated GFR > 60 Random Glucose 93 (60-115) mg/dL Calcium 8.9 (8.4-10.2) mg/dL Total Bilirubin 0.3 (0.0-1.0) mg/dL AST 17 (5-31) U/L ALT 20 (0-31) U/L Alkaline Phosphatase 34 L (39-117) U/L Total Protein 7.2 (6.5-8.0) g/dL Albumin 4.5 (3.5-5.0) g/dL Vitamin B12 397 (200-900) pg/mL Folate 8.0 (> or = 4.0) ng/mL TSH 4.01 H (0.32-4.0) uIU/mL Free T4 0.91 (0.71-1.85) ng/dL Urine Test NEGATIVE (NEGATIVE) Blood Type O Positive Antibody Screen NEGATIVE Airway Mallampati Class: II TM Dist: >3cm Neck ROM: Full Loose/Missing/Broken Teeth: Yes (Only bottom front teeth remain ~ #27 broken. None loose per pt) Assessment and Plan Assessment Anesthesia Assessment: Anesthesia Plan Discussed, PAT Visit and Chart Reviewed Final Anesthetic Review Family History of Problems with Anesthesia: No History of Problems with Anesthesia: No NPO: Yes ASA Class: III Final Preanesthetic Review: No Changes in Pt Med Stat, Meds/Allgs Chart Reviewed, Consent Obtained/Reviewed and Anes Risks/Benef Reviewed Patient Risk: Intermediate Procedure Risk: Intermediate Assessment/Block/Sedation in SS: Assess/Block/Sedation-SS Anesthetic Plan Anesthetic Plan: GA Disposition: Standard PACU and Inp. Admit - Standard Bed
[2024-06-16 12:01] LABS: Basophils Absolute Auto 0.1 X10*3/uL (0.0-0.2); Basophils Percent Auto 0.4 % (0-2); Eosinophils Absolute Auto 0.1 X10*3/uL (0.0-0.4); Eosinophils Percent Auto 0.5 % (0-4); Hemoglobin 14.2 g/dl (12.0-16.0); Imm Gran Pct Auto 0.9 % (0.0-0.4); Lymphocytes Absolute Auto 5.2 X10*3/uL (1.2-4.9); Lymphocytes Percent Auto 45.2 % (20-40); MANUAL DIFF FLAG SCAN; Mean Corpuscular Hemoglobin 29.3 pg (27.0-33.0); Mean Corpuscular Volume 88.8 fL (80.0-98.0); Mean Platelet Volume 10.2 fL (9.4-12.3); Monocytes Absolute Auto 0.9 X10*3/uL (0.1-1.2); Monocytes Percent Auto 7.5 % (2-11); Neutrophils Absolute Auto 5.2 x10*3/uL (2.0-8.3); Neutrophils Percent Auto 45.5 % (45-73); Platelet Count 334 X10*3/uL (160-400); Red Blood Count 4.84 X10*6/uL (4.20-5.50); Red Cell Distribution Width 13.5 % (11.0-16.0); SCAN SMEAR FLAG 1; White Blood Count 11.4 X10*3/uL (4.8-10.8)
[2024-06-16 12:06] LABS: INTERNATIONAL NORM RATIO 0.9 (0.9-1.1); Prothrombin Time 10.6 SEC (10.9-12.4)
[2024-06-16 12:08] LABS: Partial Thromboplastin Time 27.5 SEC (26.0-36.8)
[2024-06-16 12:22] LABS: SLIDE REVIEW VERIFIED
[2024-06-16 12:42] LABS: Alanine Aminotransferase 20 U/L (0-31); Albumin Level 4.5 g/dL (3.5-5.0); Alkaline Phosphatase 34 U/L (39-117); Anion Gap 12 (12-20); Aspartate Amino Transferase 17 U/L (5-31); Bilirubin Total 0.3 mg/dL (0.0-1.0); Blood Urea Nitrogen 11 mg/dL (9-16); Calcium 8.9 mg/dL (8.4-10.2); Carbon Dioxide 21 mmol/L (22-29); Chloride 110 mmol/L (96-108); Creatinine Clr Calc Pharmacy 107.1; Estimated Glomerular Filt Rate > 60; Glucose Random 93 mg/dL (60-115); Potassium 3.4 mmol/L (3.3-5.1); Sodium 140 mmol/L (135-145); Total Protein 7.2 g/dL (6.5-8.0)
[2024-06-16 12:54] LABS: TSH reflex Free T4 4.01 uIU/mL (0.32-4.0)
[2024-06-16 14:16] LABS: Free T4 (Free Thyroxine) 0.91 ng/dL (0.71-1.85)
[2024-06-16 14:22] LABS: Vitamin B12 397 pg/mL (200-900)
[2024-06-29] VITALS (26 sets, daily range): BP systolic 128–173; BP diastolic 67–96; PULSE 75–115; RESP 16–22; TEMP 36.6–37; O2SAT 96–99; BMI 39.9
--- NOTE | ~2024-06-29 | FL_ITS ---
EXAMINATION: Fluoroscopy. Intraoperative imaging/radiograph's lumbosacral spine CLINICAL INFORMATION: Reason for Exam l5-s1 ALIF MRI lumbosacral spine May 2024 TECHNIQUE: Fluoroscopic guidance was utilized procedure under the direction of the operating surgeon. 6 a spot images obtained and submitted for review Fluoroscopy time 0.2 minutes. Cumulative dose 20.1 mGy FINDINGS: Multiple spot images obtained during L5-S1 fusion fusion demonstrating sequential steps during disc spacer placement at the L5-S1 level. See operative note for more detailed explanation of each individual stepped performed. FL/FL guidance in OR IMPRESSION: Intraoperative findings as above during lumbar surgery Electronically signed by: Darshan Oliva MD 06/30/2024 09:23 AM EDT RP
--- NOTE | ~2024-06-29 | XR_ITS ---
EXAMINATION: Fluoroscopy. Intraoperative imaging/radiograph's lumbosacral spine CLINICAL INFORMATION: Reason for Exam l5-s1 ALIF MRI lumbosacral spine May 2024 TECHNIQUE: Fluoroscopic guidance was utilized procedure under the direction of the operating surgeon. 6 a spot images obtained and submitted for review Fluoroscopy time 0.2 minutes. Cumulative dose 20.1 mGy FINDINGS: Multiple spot images obtained during L5-S1 fusion fusion demonstrating sequential steps during disc spacer placement at the L5-S1 level. See operative note for more detailed explanation of each individual stepped performed. XR/XR lumbar spine 1V IMPRESSION: Intraoperative findings as above during lumbar surgery Electronically signed by: Darshan Oliva MD 06/30/2024 09:23 AM EDT RP
[2024-06-29 06:38] LABS: UPreg QC Valid YES; Urine Pregnancy NEGATIVE (NEGATIVE)
--- OUTSIDE RECORDS SUMMARY | 2024-06-29 06:38 | XMS_ITS | Continuity of Care Document ---
Author Organization [facility] ter Address [address] [place] [id number]- Care Team Providers Care Physician Obstetrician Name Role Phone Dwayne MOE, Todd Leyva Primary Care Physician [phone] [place] [facility] [id number] Date(s): 03/06/23 - 03/16/[address] [address]- Discharge Disposition: A-D/C Home Attending Physician: Mesfin Espinal MD, Liang Admitting Physician: Reddy Borges MD Referring Physician: Not on Staff, Referring MD Allergies, Adverse Reactions, Alerts Substance Reaction Severity Status aloe vera topical Active Reglan Active Immunizations Given and Recorded Vaccine Date Status Refusal Reason SARS-CoV-2 (COVID-19) mRNA BNT-162b2 vac 01/02/21 Given SARS-CoV-2 (COVID-19) mRNA BNT-162b2 vac 12/12/20 Given Medications acetaminophen 325 mg oral tablet = 650 mg, By Mouth, Every 6 hours, PRN Pain , Mild, 0 Refills, Maintenance, 12/13/14 15:07:56 EDT, Tablet Start Date: 12/13/14 Status: Ordered atorvastatin 10 mg oral tablet 1 tablet = 10 mg, By Mouth, Daily at bedtime, Maintenance, 12/14/21 13:34:00 EDT, Partial fill uponpatient request if the prescription is for a schedule II opioid drug. Start Date: 12/14/21 Status: Ordered cyanocobalamin 1000 mcg/ml injectable solution = 1,000 mcg, Intramuscular, Every 28 days, 0 Refills, Maintenance, 02/25/22 12:11:00 EDT, Partial fill upon patient request if the prescription is for a schedule II opioid drug. Start Date: 02/25/22 Status: Ordered docusate sodium 100 mg oral capsule 1 capsule = 100 mg, By Mouth, Daily, PRN as needed for constipation, 0 Refills, Maintenance, 12/13/14 15:08:05 EDT, Capsule Start Date: 12/13/14 Status: Ordered folic acid 1 mg oral tablet 1 mg, 1, tablet, By Mouth, Daily, Maintenance, 12/14/21 13:38:00 EDT, Partial fill upon patient request if the prescription is for a schedule II opioid drug. Start Date: 12/14/21 Status: Ordered HYDROmorphone Inj 2 mg, Injection, IV Push Slowly, Every 6 hours, Hold for: RR< 10, lethargy, PRN for Pain , Severe, Routine, 03/11/23 10:53:00 EDT Start Date: 03/11/23 Stop Date: 03/16/23 Status: Discontinued ibuprofen 800 mg oral tablet 800 mg, By Mouth, Every 8 hours, # 90 tablet, Refills 0, Tot. Refills 0, Maintenance, 03/14/23 16:06:00 EDT, Route to Pharmacy Electronically, [facility], Partial fill upon patient request if the prescription is for a schedule II opioid... Start Date: 03/14/23 Status: Ordered Lupron Depot 3.75 mg intramuscular kit = 3.75 mg, Intramuscular, Every 28 days, 0 Refills, Maintenance, 02/25/22 12:11:00 EDT, Partial fill upon patient request if the prescription is for a schedule II opioid drug. Start Date: 02/25/22 Status: Ordered morphine 15 mg oral tablet, immediate release = 7.5 mg, By Mouth, Every 4 hours, PRN Pain , Moderate, for 7 days, # 30 tablet, 0 Refills, Acute 03/21/23 16:09:00 EDT, 03/14/23 16:09:00 EDT, Tablet, [facility], Partial fill upon patient request if the prescription is for a schedule I... Start Date: 03/14/23 Stop Date: 03/21/23 Status: Ordered morphine 15 mg/8 to 12 hr oral tablet, extended release = 15 mg, By Mouth, Every 12 hours, # 24 tablet, 0 Refills, Maintenance, 03/14/23 16:06:00 EDT, ER Tablet, [facility], Partial fill upon patient request if the prescription is for a schedule II opioid drug., 170, cm, 03/14/23 15:48:00 EDT... Start Date: 03/14/23 Status: Ordered morphine 15 mg/8 to 12 hr oral tablet, extended release 15 mg, CR Tablet, By Mouth, 03/16/23 8:00:00 EDT Start Date: 03/16/23 Stop Date: 03/16/23 Status: Completed nystatin topical 566300 u/gm powder 1 application, Topically, 2 times a day, PRN, Maintenance, 12/14/21 13:40:00 EDT, Powder, Partial fill upon patient request if the prescription is for a schedule II opioid drug. Start Date: 12/14/21 Status: Ordered ondansetron 4 mg oral tablet 1 tablet = 4 mg, By Mouth, Every 8 hours, PRN Nausea & Vomiting, # 10 tablet, 0 Refills, Acute 03/19/23 8:33:00 EDT, 03/16/23 8:33:00 EDT, Tablet, [facility], Partial fill upon patient request if the prescription is for a schedule II opi... Start Date: 03/16/23 Stop Date: 03/19/23 Status: Ordered predniSONE 20 mg oral tablet = 40 mg, By Mouth, Daily, for 9 days, with food or milk Prednisone taper 40 mg x 3 days 20 mg x 3 days 10 mg x 3 days, # 11 tablet, 0 Refills, Acute 03/23/23 16:07:00 EDT, 03/14/23 16:07:00 EDT, Tablet, [facility], Partial fill upon... Start Date: 03/14/23 Stop Date: 03/23/23 Status: Ordered senna 187 mg oral tablet 1 tablet = 8.6 mg, By Mouth, Daily, PRN as needed for constipation, 0 Refills, Maintenance, 12/13/14 15:08:44 EDT, Tablet Start Date: 12/13/14 Status: Ordered topiramate 100 mg oral tablet 3 tablets, By Mouth, Daily at bedtime, Maintenance, 12/14/21 13:37:00 EDT, Partial fill upon patient request if the prescription is for a schedule II opioid drug. Start Date: 12/14/21 Status: Ordered traZODone 100 mg oral tablet 2 tablets, By Mouth, Daily at bedtime, Maintenance, 12/14/21 13:42:00 EDT, Partial fill upon patient request if the prescription is for a schedule II opioid drug. Start Date: 12/14/21 Status: Ordered Problem List Condition Confirmation Course Effective Dates Status Health St atus Informant Anxiety Confirmed Active Chronic low back pain Confirmed Active Depression Confirmed Active GERD (gastroesophageal reflux disease) Confirmed Active Stress incontinence Confirmed Active Morbid obesity Confirmed Active Obese class II Confirmed Active Results Radiology Reports * Exam Date Time Procedure Performing Provider Status 03/08/23 7:05 PM MRI Lumbar Spine W/O Contrast Aidan Joel (Verified) Notes: (MRI Lumbar Spine W/O Contrast) Reason For Exam: Back Pain RESULT: MRI Lumbar Spine W/O Contrast MRI Lumbar Spine W/O Contrast INDICATION: Reason: Back Pain; Clinical Question(s): Herniated Disc; Order Comment: Please see Reference Text for complete list of contraindications Herniated Disc TECHNIQUE: MRI of the lumbar spine was performed without intravenous contrast utilizing sagittal T1, sagittal T2, sagittal STIR, axial T1, and axial T2- weighted sequences. COMPARISON: MRI 02/27/2022 FINDINGS: NUMBERING: The study assumes 5 [id number] lumbar type vertebral bodies. ALIGNMENT, VERTEBRAE, MARROW, AND DISCS: No suspicious marrow signal abnormality is noted. There isdisc desiccation from L2 through S1. No subluxation is present. CONUS: The conus is normal in signal and contour, with normal level of termination at L1. PARASPINAL TISSUES: No mass or aneurysm is evident. DETAILED FINDINGS BY LEVEL: L1-L2: Normal L2-L3: Disc desiccation and mild disc space narrowing is present. Mild annular bulging is present without stenosis. L3-L4: Disc desiccation, mild disc space narrowing and mild annular bulging is present. There is a small superimposed right paramedian disc extrusion. There is minimal displacement of the right L4 nerve root. No central or foraminal stenosis is produced. L4-L5: Disc desiccation, annular bulging and a posterior annular tear are present. No discrete discherniation is noted. Minimal central stenosis is of doubtful clinical significance. There is mild infolding of the ligamentum flavum. No foraminal stenosis is present. No focal nerve root compressionis identified. L5-S1: Disc desiccation and small anterior osteophytes are present. A small central disc extrusion is present indenting the anterior subarachnoid space. No central stenosis is produced and there is no mass effect on either S1 nerve root. The foramina are normal. IMPRESSION: Multilevel findings of degenerative disc disease without evidence of significant spinal stenosis orfocal nerve root compression. A central disc extrusion at L4-5 has improved since 02/27/2022. No other interval change is demonstrated. WSN: [id number] Ordering Physician: Jayna Velasquez Dictated By: Sharan Strauss MD Dictated Date/Time: 03/09/23 7:40 am Reviewed By: Sharan Strauss MD Signed By: Sharan Strauss MD Signed Date/Time: 03/09/23 7:40 am Transcribed By: DEYSI Transcribed Date/Time: 03/09/23 7:35 am Vital Signs Most recent to oldest [Reference Range]: 1 2 3 Height 170 cm (03/16/23 8:03 AM) 170 cm (03/15/23 3:47 PM) 170 cm (03/15/23 7:24 AM) Oxygen Saturation [94-100 %] 100 % (03/16/23 8:03 AM) 99 % (03/16/23 3:00 AM) 100 % (03/15/23 8:00 PM) Pulse Rate [55-90 bpm] 63 bpm (03/16/23 8:03 AM) 54 bpm *L* (03/16/23 3:00 AM) 64 bpm (03/15/23 8:00 PM) Blood Pressure [90-138/55-84 mm Hg] 129/82mm Hg (03/16/23 8:03 AM) 119/76mm Hg (03/16/23 3:00 AM) 127/76mm Hg (03/15/23 8:00 PM) Respiratory Rate [16-30 br/min] 16 br/min (03/16/23 8:50 AM) 18 br/min (03/16/23 8:03 AM) 19 br/min (03/16/23 4:10 AM) Temperature [96.8-100.4 DegF] 98.3 DegF (03/16/23 8:03 AM) 98.1 DegF (03/16/23 3:00 AM) 98.2 DegF (03/15/23 8:00 PM) Mode of Delivery (Oxygen) Room air (03/16/23 8:03 AM) Room air (03/16/23 3:00 AM) Room air (03/15/23 8:00 PM) Blood pressure sites Arm, right (03/16/23 8:03 AM) Arm, right (03/16/23 3:00 AM) Arm, right (03/15/23 8:00 PM) Temperature Route Oral (03/16/23 8:03 AM) Oral (03/16/23 3:00 AM) Oral (03/15/23 8:00 PM) Dry Weight 97.4 kg (03/06/23 9:03 AM) Weight Obtained Via Standing scale (03/06/23 9:03 AM) Dry Weight Obtained Via Standing scale (03/06/23 9:03 AM) Social History Social History Type Response Smoking Status 10 or more cigarette s (1/2 pack or more)/day in last 30 days entered on: 12/14/21 Sex Admission evaluation note * Eduardo Agustin: PERFORM Event Display: Admission Note Authored Date: [id number] Patient: ??JO ANN LEDESMA ? Age:??42 Years?Sex:??Female?:??1980?? Chief Complaint/Reason for Consultation Back pain History of Present Illness 42-year-old female??with history of chronic lower back pain,??bipolar disorder,??hyperlipidemia??presents with??lower back pain.?? She intermittently??experiences numbness??radiating??down her??rightleg.?? She denies??bladder, bladder incontinence??or saddle anesthesia since.?? She denies??IV druguse, or fever.?? Of note,??she had an MRI??a year ago when she was here for a similar reason??and it revealed degenerative disc disease without any cord compression.?? Patient states she has had somerelief in the past??steroid injections??and physical therapy.?? But she has not tried this recently.?? She presented to her primary care??a few weeks ago??and was prescribed??a course of oral prednisone, but this did not work.?? Tylenol and ibuprofen were not working and neither were her??muscle relaxers, so she presented to the emergency department.?? She did did get some relief with IV Toradol and Dilaudid??but her pain persisted so she was admitted for further pain management. denies fever, CP, SOB, abdominal pain, bowel or bladder complaints. Review of Systems CONSTITUTIONAL: ??Denies any fever, chills, changes to weight or fatigue. EYES: Denies any changes to vision, burning or diplopia. HEENT: Denies any HILLI[place], nasal d/c, nose bleeds, changes to voice, vertigo, photophobia, hearing changes or dental problems. CV: Denies any CP, orthopnea, PND, edema, palpitations. PULM: Denies any SOB, wheezing, cough or production of phlegm. ABD: Denies any abdominal pain, N/V/D, heartburn, PRBPR, melena, or changes to bowel habits. : Denies any changes to frequency. ??Denies dysuria, urgency, straining, hematuria, incontinence.? MS: See HPI NEURO: Denies any weakness, numbness, changes to speech confusion or memory loss. SKIN: Denies any rashes or lesions. ?? PSYCH: Denies any depression or anxiety. SIGECAPS negative. FUNCTIONAL: At baseline the patient is able to??ambulate independently Objective Vital Signs?? Temperature: 98.5 DegF (03/06/23 09:03:00) Temperature Route: Oral (03/06/23 09:03:00) Pulse Rate:??51 bpm??Low (03/06/23 14:48:00) Respiratory Rate: 18 br/min (03/06/23 15:55:00) Systolic Blood Pressure: 121 mm Hg (03/06/23 14:48:00) Diastolic Blood Pressure:??87 mm Hg??High (03/06/23 14:48:00) Blood pressure sites: Arm, left (03/06/23 14:48:00) Mean Arterial Pressure: 120 mm Hg (03/06/23 09:03:00) Pulse Pressure: 34 mm Hg (03/06/23 14:48:00) Oxygen Saturation: 100 % (03/06/23 14:48:00) Mode of Delivery (Oxygen): Room air (03/06/23 14:48:00) Early Warning Score: 0 (03/06/23 15:55:41) ? Physical Exam General:??42 year old??female??lies in bed comfortably in no acute distress HEENT: NCAT, moist oral mucosa, good dentition, oropharynx without erythema Card: RRR no murmur, non displaced PMI, no JVD, 2+ radial pulse B/L Resp: CTA B/L, no wheezing, rales, ronchi Abdomen: soft and non tender, bowel sounds WNL Extremities: no pitted edema B/L lower extremities Skin: Without rashes or lesions, good turgor Hem/Lymph: without bruising or lymphadenopathy Psych: appropriate affect Neuro: A&OX3, no focal motor deficits Assessment/Plan 42-year-old female??with history of chronic lower back pain,??bipolar disorder,??hyperlipidemia??presents with??lower back pain. ?? Back pain (M54.9):?? Patient with acute on chronic lower back pain.??No red flag symptoms.?Had an MRI about a year ago??with degenerative disc disease and no cord compression. ??Do not think she needs??another??MRI??now. ??We will??admit for??acute??pain management ?? Plan IV Dilaudid??and ketorolac as needed??for pain Convert to oral??as tolerated PT??consult Would likely benefit??from outpatient??physical therapy??and??orthopedics??referral for??steroid injections ? Bipolar disorder (F31.9):??Continue??Topamax??and trazodone ?? Hyperlipidemia (E78.5):??Continue statin ?? VTE Prophylaxis:??Pneumoboots ?VTE Prophylaxis Assessment:??VTE Prophylaxis Ordered ?? Code Status:??Full code ?Order Code Status:??Code Status Ordered ?? Ongoing Medical Necessity:??Pain management ?? Tobacco Use Treatment:??N/A ?? Discharge Planning:??Likely home in 2 to 3 days ? Histories Allergies Allergies ?(Active and Proposed Allergies Only) aloe vera topical? (Severity: Unknown severity, Onset: Unknown) Reglan? (Severity: Unknown severity, Onset: Unknown) ? Past Medical History/Problem List Active Problems??(7) Anxiety Chronic low back pain Depression GERD (gastroesophageal reflux disease) Morbid obesity Obese class II Stress incontinence ? Past Surgical History No surgery history documented. ? Social History Alcohol Details:??Use: Never. Substance Abuse Details:??Type: Marijuana. Tobacco Details:??Use: 10 or more cigarettes (1/2 pack or more)/day in last 30 days. Details:??Use: Current every day smoker. ? Family History Mother (Johnny): Arthritis; Hypertension Father (Amparo): Hypertension ? Medications Home Medications Acetaminophen (acetaminophen 325 mg oral tablet)?650?Milligram?By Mouth?Every 6 hours?as needed?Pain , Mild Atorvastatin (atorvastatin 10 mg oral tablet)?1?tab(s)?10?Milligram?By Mouth?Daily at bedtime Cyanocobalamin (cyanocobalamin 1000 mcg/ml injectable solution)?1,000?Microgram?Intramuscular?Every 28 days Docusate (docusate sodium 100 mg oral capsule)?1?capsule?100?Milligram?By Mouth?Daily?as needed?as needed for constipation Folic Acid (folic acid 1 mg oral tablet)?1?Milligram?1?tablet?By Mouth?Daily Leuprolide (Lupron Depot 3.75 mg intramuscular kit)?3.75?Milligram?Intramuscular?Every 28 days Nystatin Topical (nystatin topical 427838 u/gm powder)?1?ranjan?Topically?2 times a day?PRN Senna (senna 187 mg oral tablet)?1?tab(s)?8.6?Milligram?By Mouth?Daily?as needed?as needed for constipation Topiramate (topiramate 100 mg oral tablet)?3 tablets?By Mouth?Daily at bedtime Trazodone (traZODone 100 mg oral tablet)?2 tablets?By Mouth?Daily at bedtime ? Results Recent Labs BLOOD COUNT & DIFF WBC 10.7 k/mm3 ()?? 03/06/2023 11:04 RBC 4.34 m/mm3 ()?? 03/06/2023 11:04 Hgb 13.4 Gm/dL ()?? 03/06/2023 11:04 Hct 39.7 % ()?? 03/06/2023 11:04 MCV 91.5 femtoliters ()?? 03/06/2023 11:04 MCH 30.9 pg ()?? 03/06/2023 11:04 MCHC 33.8 g/dL ()?? 03/06/2023 11:04 Platelet Count 254 k/mm3 ()?? 03/06/2023 11:04 RDW-SD 43.9 femtoliters ()?? 03/06/2023 11:04 MPV 10.4 femtoliters ()?? 03/06/2023 11:04 Nucleated RBC (Automated) 0.0 #/100 WBC'S ()?? 03/06/2023 11:04 Abs. NRBC 0.0 k/mm3 ()?? 03/06/2023 11:04 Abs. Neut 6.4 k/mm3 ()?? 03/06/2023 11:04 Abs. Lymph 3.3 k/mm3 (High)?? 03/06/2023 11:04 Abs. [place] 0.9 k/mm3 ()?? 03/06/2023 11:04 Abs. Eo 0.1 k/mm3 ()?? 03/06/2023 11:04 Abs. Baso 0.1 k/mm3 ()?? 03/06/2023 11:04 Neut % 59.3 % ()?? 03/06/2023 11:04 Lymph % 30.8 % ()?? 03/06/2023 11:04 [place] % 8.3 % ()?? 03/06/2023 11:04 Eos % 0.6 % ()?? 03/06/2023 11:04 Baso % 0.5 % ()?? 03/06/2023 11:04 Imm Gran 0.5 % ()?? 03/06/2023 11:04 Abs. Imm Gran 0.1 k/mm3 ()?? 03/06/2023 11:04 ?? CHEM GENERAL Sodium 141 mmol/L ()?? 03/06/2023 11:04 Potassium 3.6 mmol/L ()?? 03/06/2023 11:04 Chloride 104 mmol/L ()?? 03/06/2023 11:04 Bicarbonate Level 23 mmol/L ()?? 03/06/2023 11:04 Anion Gap 14 ()?? 03/06/2023 11:04 Glucose Level 96 mg/dL ()?? 03/06/2023 11:04 BUN 14 mg/dL ()?? 03/06/2023 11:04 Creatinine-Blood 0.8 mg/dL ()?? 03/06/2023 11:04 Estimated GFR Creatinine 92 ML/MIN/1.73 M2 ()?? 03/06/2023 11:04 Calcium 9.3 mg/dL ()?? 03/06/2023 11:04 ?? URINE OTHER Est Creatinine Clearance 87.04 mL/min ()?? 03/06/2023 11:49 ? EKG study * Event Display: ECG 12-Lead Authored Date: Please click on pdf link to open report * Event Display: ECG 12-Lead Authored Date: Ventricular Rate: 57 BPM Atrial Rate: 57 BPM P-R Interval: 150 ms QRS Duration: 96 ms Q-T Interval: 438 ms QTC Calculation(Bazett): 426 ms P Beaver: 40 degrees R Beaver: -3 degrees T Beaver: 21 degrees Sinus bradycardia Otherwise normal ECG When compared with ECG of 14-DEC-2021 10:56, No significant change was found Confirmed by DAMON WATERS ([id number]) on 03/10/2023 9:31:40 PM [place]: DAMON WATERS Hospital Progress note * Barbra Mcclellan RN: PERFORM, SIGN, VERIFY Event Display: Progress Note Hospital Authored Date: Patient: JO ANN LEDESMA Age: 42 years Sex: Female : 1980 Associated Diagnoses: None Author: Barbra Mcclellan RN Findings Evaluation Pt is a & O x 4 pain is better managed ambulating a little easier with walker and longer distances. intake is good safety maintained possible d/c home tomorrow.. Discharge Information Case Management Discharge Plan : Case Management Discharge Plan Data 03/13/2023 9:57 EDT Discharge Level of Care at Discharge Homehealth/VNA Discharge VNA/Hospice/Home Care [facility] [phone] Name of Agency #1 [facility] Categories #1 Physical Therapy, Retirement Service Start Date and Time #1 03/13/2023 15:00 Service Comments #1 The above agency will be providing visiting home services. They should contact you within 24 ??? 48 hours of returning home. If they do not, please contact the company at the above number. * Barbra Mcclellan RN: PERFORM, SIGN, VERIFY Event Display: Progress Note Hospital Authored Date: [id number] Patient: JO ANN LEDESMA Age: 42 years Sex: Female : 1980 Associated Diagnoses: None Author: Barbra Mcclellan RN Findings Problem Related to Alteration in Comfort : Alteration in Comfort/new 03/14/2023 18:00 EDT Alteration in Comfort Related to Injury Goals & Outcomes: Comfort Pt will report acceptable level of comfort & pain control Interventions Implemented: Comfort Assess pain using appropriate pain scale/tools BH Goals/Interventions, Comfort Yes Comfort, Problem Start 03/06/2023 18:59 Reviewed plan with, Comfort Patient Patient Progression, Comfort Pt progressing according to plan Comfort, Problem Ongoing Yes . Nursing Data Vital Signs : VITAL SIGNS SECTION 03/14/2023 15:48 EDT Early Warning Score 0.00 03/14/2023 15:48 EDT Temperature 98.4 DegF Temperature Route Oral Pulse Rate 72 bpm Respiratory Rate 18 br/min Systolic Blood Pressure 137 mm Hg Diastolic Blood Pressure 85 mm Hg H Blood pressure sites Arm, right Mean Arterial Pressure 102 mm Hg Pulse Pressure 52 mm Hg Oxygen Saturation 100 % Mode of Delivery (Oxygen) Room air . Evaluation pt a&o x 4 indep, intake is adequate, small BM today following lactulos, walking more with walker, pain appears to be fairly well managed with current pain med regimen. safety maintained. possible plan for home tomorrow.. Discharge Information Case Management Discharge Plan : Case Management Discharge Plan Data 03/13/2023 9:57 EDT Discharge Level of Care at Discharge Homehealth/VNA Discharge VNA/Hospice/Home Care [facility] [phone] Name of Agency #1 [facility] Categories #1 Physical Therapy, Retirement Service Start Date and Time #1 03/13/2023 15:00 Service Comments #1 The above agency will be providing visiting home services. They should contact you within 24 ??? 48 hours of returning home. If they do not, please contact the company at the above number. * Arthur LLOYD, Chaya O: PERFORM Event Display: Progress Note Hospital Authored Date: [id number] Patient: ??JO ANN LEDESMA ? Age:??42 Years?Sex:??Female?:??1980?? Subjective No acute events overnight. ?? Patient has been walking down the [place]. Still having a lot of pain, now left side of back is starting to hurt. Using more of the morphine IR PRN. Does not want to change pain regimen today. Hoping to go home tomorrow. Not worried about IV Dilaudid use inpatient as she thinks marijuana will take the place of Dilaudid at home. ?? Review of Systems Reviewed and negative except as in HPI above Objective Vital Signs?? Temperature: 98 DegF (03/14/23 08:01:00) Temperature Route: Oral (03/14/23 08:01:00) Pulse Rate: 56 bpm (03/14/23 08:01:00) Respiratory Rate: 18 br/min (03/14/23 08:49:00) Systolic Blood Pressure: 128 mm Hg (03/14/23 08:01:00) Diastolic Blood Pressure: 67 mm Hg (03/14/23 08:01:00) Blood pressure sites: Arm, left (03/14/23 08:01:00) Mean Arterial Pressure: 87 mm Hg (03/14/23 08:01:00) Pulse Pressure: 61 mm Hg (03/14/23 08:01:00) Oxygen Saturation: 99 % (03/14/23 08:01:00) Mode of Delivery (Oxygen): Room air (03/14/23 08:01:00) Early Warning Score: 0 (03/14/23 08:50:39) ? Physical Exam General: Patient in no acute distress, interactive?? HEENT: normocephalic, EOMI, moist mucous membranes with no oral lesions. Respiratory: clear to auscultation with no wheezes or crackles. CVS: regular rate and rhythm, S1 and S2 present, no murmurs Abdomen: soft, non tender, non distended Neuro: Moving all extremities spontaneously. Normal tones, following simple commands.??Seen ambulating in the hallway. Results Recent Labs No labs resulted between 03/13/2023 00:00 and 03/14/2023 10:48? Assessment/Plan Jo Ann is a 42 year old woman with a past medical history of chronic back pain and bipolar disorderwho initially presented on 03/06 with severe lower back pain, admitted for management of acute pain management now s/p SI joint injection on 03/10.??Hospital course is complicated by nausea and vomitingin the setting of B12 injection. She is currently improving in regards to pain, plan for possible DC??tomorrow 03/15. ?? #Acute on chronic lower back pain #L foot paresthesia + L leg/foot weakness; suspected lumbar radiculopathy #SI joint pain s/p SI joint injection 03/10 Jo Ann has had??chronic lower back pain for past 20+ years. Has had 5-6 episodes of severe back pain like this in the past year, but came to the ED??on 03/06??due to new-onset lower extremity paresthesias associated w/ severe back pain that she has never experienced before. 1 wk before coming to ED, she??experienced a??transient episode of L anterior thigh paresthesia in lateral femoral cutaneous nerve distribution described as numbness, tingling, and pain last week that subsided throughout the day. This has never happened before. Several days later, noticed R foot paresthesia, felt like her R foot was??numb and tingling.? 03/08 MRI lumbar w/o contrast showed no significant changes from MRI last year in January 2022;??multilevel findings of degenerative disc disease without evidence of significant spinal stenosis or focal nerve root compression. A central disc extrusion at L4-5 has actually??improved since 02/27/2022.??There is minimal displacement of the right L4 nerve root, which may account for pt's new-onset sensory and motor sx??+ absent/hyporreflexia in??L3-S2 distribution this past week.?It seems that her relatively few changes in??MRI findings compared to??last year??are not proportional to the worsening??level of pain or new-onset neuropathy??she is experiencing now. ?? Given MRI and sx, this is most likely an acute exacerbation of chronic degenerative disc disease.??Our goal??is to achieve tolerable pain control for pt to regain ability to perform her baseline daily functions. Aim to wean off of IV Dilaudid??+??encourage??ambulation + work w/ PT to get pt closer to functional status for d/c, goal 03/14. Started high dose prednisone on 03/11 for 5d followed by taper (will be managed by PCP outpt) given that this has worked for her before and her pain has been refractory to multimodal therapy thus far. ?? Pt encouraged to f/u with PCP outpt. We encourage??that PCP consider referral to??neurology, PM&R, and/or rheum (?ankylosing spondylitis) to continue Prednisone course + explore long-term pain management options. PCP??is Dr. Jayden Sanders (pt sees D[employer] , Todd) ??at [facility] in [place]. ?? PLAN: ?? Continue: -??PO morphine 15mg ER q12h+ PO morphine 7.5mg IR??q4 PRN for breakthrough pain - PO prednisone 60 mg, currently day 4/5 - plan for taper after -??Dilaudid??to q6h prn reserved only for extreme pain - Tylenol 650 mg every 4 hours - Ibuprofen 800 mg every 8 hours - K-pads and ice for further management of pain - PT + encourage ambulation? #Nausea #Chronic B12 deficiency secondary to remote colonic resection Pt somewhat improved??nausea from B12 shot + vomited several times 03/12 overnight, but??better thanyesterday. Improving.??On scopalamine patch started 03/10 + IV Compazine 5mg every 6 hours PRN to control nausea and vomiting with some improvement of sx. ?? Received 1000 mcg B12 shot IM on 03/10 for chronic B12 deficiency 2/2 colonic resection in 2008 for diverticulitis.??Started ODN and scopolamine patch 03/10 prophylactically for nausea.? Pt says shetypically experiences severe nausea, vomiting (retching exacerbates her back pain), headache, and general malaise that peaks around 2-3 days after receiving a shot, so she expected the nausea to occur. ?? Developed B12 deficiency a couple years ago. Self-injects 1000mg B12 f2fopum at home. At home, takes??8 mg PO??Zofran q8h prn + scopolamine??patch q3d prn??w/ B12 shot to reduce sx with some alleviation. B12 and folate levels checked 03/09 and were wnl but pt says she normally takes B12 injection [id number] regardless of level. Pt requested that she receive the B12 injection on 03/10 after discussion thatit may exacerbate her existing back pain, would rather get it in hospital so??can monitor for effects. ?? PLAN: - Change??to IV??Compazine 5mg q6h prn - Continue scopolamine patch? #Opioid-induced constipation Has??had intermittent constipation since admission, likely opioid-induced. ?? PLAN: -?Scheduled docusate-senna, lactulose and miralax - PRN bisacodyl suppository ?? Quality measures: Diet: regular DVT prophylaxis:??none Code Status: full Dispo: pending improvement of pain, weaning from IV??pain meds ? Patient case and plan discussed with Dr. Lee ?? Chaya Gibson MD?? Internal Medicine-Pediatrics PGY-3 Pager: [phone]?? * Jesus LLOYD, Lillian P: PERFORM Event Display: Progress Note Hospital Authored Date: Attending Attestation: I have seen and evaluated this patient on 03/13/23. I have discussed the caseand its management with the resident and agree with the findings and plan as documented in the resident???s note except where modified. ?? Lillian Lee MD [facility] Internal Medicine/Pediatric Hospitalist Pager: [phone] ? Consult note * Santi Starr DO: MODIFY, MODIFY, MODIFY, SIGN, VERIFY, MODIFY Santi Starr DO: MODIFY, PERFORM Santi Starr DO: PERFORM, MODIFY Santi Starr DO: MODIFY Jacob Mayo MD: MODIFY, SIGN Jacob Mayo MD: SIGN Event Display: Consultation Note Authored Date: [id number] Patient: JO ANN LEDESMA Age: 42 years Sex: Female : 1980 Associated Diagnoses: None Author: Santi Starr DO Visit Information Visit Type Pain consultation. Source of History Patient. Chief Complaint: Lower Back Pain History of Present Illness 42-year-old female with history of chronic lower back pain, bipolar disorder, hyperlipidemia presents with lower back pain. She intermittently experiences numbness radiating down her right leg. She denies bladder incontinence or saddle anesthesia. She denies IV drug use, or fever. Of note, she had an MRI a year ago when she was here for a similar reason and it revealed degenerative disc disease without any cord compression. Patient states she has had some relief in the past steroid injections and physical therapy, but she has not tried this recently. She presented to her primary care a few weeks ago and was prescribed a course of oral prednisone, but this did not work. Tylenol and ibuprofenwere not working and neither were her muscle relaxers, so she presented to the emergency department. She did get some relief with IV Toradol and Dilaudid but her pain persisted so she was admitted for further pain management. denies fever, CP, SOB, abdominal pain, bowel or bladder complaints. 03/09: Patient seen at bedside in consultation for management of acute on chronic, intractable lower back pain. A discussion was had with the patient regarding her history of DJD and level of pain umm daily basis outside of the hospital, which she states is a constant, but bearable 6/10. During this hospital visit, the pain has been unbearable at an 8/10 when IV Dilaudid begins to wear off, but down to a 6/10 shortly after administration. The pain is described as stabbing and stiff in nature. She states the pain is in the middle low back slightly off to the right-side and radiates down her right leg. Patient's current regimen is multimodal with scheduled Tylenol 650mg q4, Ibuprofen 800mg q8, and oxycodone 5mg q6. On an as-needed basis, she has 2mg Dilaudid IV q4, which she has utilized 12mg in the last 24hours. Patient has had relief in the past for similar pain with epidural steroid injections in [place] [facility] [place]. Past Medical History Procedure/Surgical Profile No active procedure history items have been selected or recorded. Problem list All Problems Anxiety / SNOMED CT 57262852 / Confirmed Chronic low back pain / SNOMED CT 309485571 / Confirmed Depression / SNOMED CT 89990675 / Confirmed GERD (gastroesophageal reflux disease) / SNOMED CT 102769885 / Confirmed Morbid obesity / SNOMED CT 874524135 / Confirmed Obese class II / SNOMED CT 714944760274912 / Confirmed Stress incontinence / SNOMED CT 911936315 / Confirmed Allergies Allergic Reactions (Selected) Severity Not Documented Aloe vera topical- No reactions were documented. Reglan- No reactions were documented. Review of Systems 12-point ROS negative unless indicated above. Physical Examination Constitutional: Alert, tearful, in moderate pain. Mental Status: Oriented to person, place and time. Neck: Supple, Full range of motion. Respiratory: Clear to auscultation. No wheezing, rales or rhonchi. Cardiovascular: S1 S2 regular. No murmurs, rubs or gallops. Neurologic: No focal neurological deficits. Flexor plantar response. Moves all extremities spontaneously. Sensation intact bilaterally. Diminished 1/5 strength in RLE, likely effort-related due to pain. Skin: No rashes or lesions. No petechiae or purpura. Musculoskeletal: No cyanosis or clubbing. No gross deformities. Decreased ROM in RLE. Significant pain with upward motion in RLE. Significant point tenderness over R SI joint Psychiatric: Normal mood and affect Results Review Results Today's Results : ALL RESULT SECTIONS 03/09/2023 13:15 EDT Case Management Forms Brief Case Summary (Case Management) Brief Case Summary (Case Management) 03/09/2023 13:09 EDT Case Management Forms Patient demographic information Patient demographic information HCP and Advance Directive Docs in Chart HCP and Advance Directive Docs in Chart 03/09/2023 11:08 EDT Nutrition/Dietary Note Medical Nutritional Therapy 03/09/2023 10:20 EDT Assessment Forms 03/09/2023 9:52 EDT Assessment Forms 03/09/2023 9:51 EDT Assessment Forms 03/09/2023 9:50 EDT Assessment Forms 03/09/2023 13:15 EDT Case Management Progress Note Form Case Management Progress Note Form Anticipated Discharge Date 03/10/2023 Case Management Follow-up Needed Yes - Follow-Up needed 03/09/2023 13:09 EDT Case management high risk status High risk criteria met Case Management Screening Form Case Management Screening Form Anticipated Discharge Date 03/10/2023 Authorized to discuss patients health sister Travis, father Amparo, spouse Amanda Cell phone number [phone] pharmaceutical salesperson Amparo Ledesma High Risk Criteria Screen Anticipate need for certified home care services Relationship to patient Father High Risk Pt readmitted within 31 days No Add Health Care Proxy Adv Directive Doc? Use current scanned-in HCP (only select this option if there 03/09/2023 13:00 EDT Oral Fluids 240 mL Lunch Percent 100 % 03/09/2023 12:17 EDT Early Warning Score 2.00 03/09/2023 12:14 EDT Ibuprofen 800 mg mg Oxycodone 5 mg mg Respiratory Rate 20 br/min Pain Intensity 10 Pain Intensity 10 Pain Scale Type 0 - 10 Pain scale Pain Scale Type 0 - 10 Pain scale Sedation Scale Awake and alert 03/09/2023 12:11 EDT Early Warning Score 2.00 03/09/2023 12:11 EDT Early Warning Score 2.00 03/09/2023 8:00 EDT Assessment Forms 03/09/2023 11:12 EDT Nutrition Service Consult Follow Up Done 03/09/2023 10:20 EDT Respiratory Rate 18 br/min Pain Intensity 4 Sedation Scale Awake and alert 03/09/2023 9:52 EDT Fall Risk Assessment Form Fall Risk Assessment Form Fall Agitation/Anxiety/Depression No impairment Fall Cognitive Limitations No impairment Fall Elimination No impairment Fall High Risk for Injury None of the above Fall Related Sign/Symptom/Condition None Fall Risk Level Low Risk Fall Sensory and Physical Function Weak Falls Prevention Plan for Low Risk Bed in lowest locked position Plan: Fall Sensory and Physical Function Encourage safe activities to maintain strength & mobility Total Falls Risk Score 2 03/09/2023 9:51 EDT Biophysical Assessment Form Not Done (Not Done) Андрей Assessment Form Not Done (Not Done) Safety Data Form Safety Data Form Activity Not Done: see interactive flowsheet (Not Done) Allergy band in place/verified Yes Blood Pressure/Venipuncture All 4 limbs may be used Call Millan in Reach-Ensure Ability to Use Yes Cardiovascular Not Done: see interactive flowsheet (Not Done) Friction and Shear Not Done: see interactive flowsheet (Not Done) GI Not Done: see interactive flowsheet (Not Done) Not Done: see interactive flowsheet (Not Done) HEENT, Adult Not Done: see interactive flowsheet (Not Done) ID band on Yes Integumentary Not Done: see interactive flowsheet (Not Done) Mobility Not Done: see interactive flowsheet (Not Done) Moisture Not Done: see interactive flowsheet (Not Done) Musculoskeletal Not Done: see interactive flowsheet (Not Done) Neuro Not Done: see interactive flowsheet (Not Done) Nursing Care Plan initiated/updated Not Done: see interactive flowsheet (Not Done) Nutrition Not Done: see interactive flowsheet (Not Done) Pain system assessment Not Done: see interactive flowsheet (Not Done) Patient Instructed on Use of Call Millan N/A Respiratory Not Done: see interactive flowsheet (Not Done) Respiratory Treatment(s) Cough and deep breathe Sensory Perception Not Done: see interactive flowsheet (Not Done) Sequential Compression Device Patient independently ambulating Standard Safety Bed in low position, Non-slip footwear TEDS Not indicated/Not ordered Turn and Reposition Able to change own position Mattress/Device (chg) Not Done: see interactive flowsheet (Not Done) 03/09/2023 9:50 EDT Respiratory Rate 18 br/min Pain Intensity 4 Sedation Scale Awake and alert 03/09/2023 9:28 EDT Early Warning Score 2.00 03/09/2023 9:20 EDT Acetaminophen 650 mg mg Hydromorphone 2 mg mg Respiratory Rate 20 br/min Pain Intensity 0 Pain Intensity 8 Pain Scale Type 0 - 10 Pain scale Pain Scale Type 0 - 10 Pain scale Sedation Scale Awake and alert 03/09/2023 9:00 EDT Oral Fluids 420 mL Андрей Score 21 Activity Walks occasionally Breakfast Percent 100 % Cardiovascular WNL Friction and Shear No apparent problem GI WNL Goals and Outcomes: Skin Patient will maintain skin integrity WNL Integumentary WNL Last Bowel Movement 03/07/2023 Mobility No limitations Moisture Rarely moist Musculoskeletal Symptoms Weakness Neuro WNL Nursing Care Plan initiated/updated Not applicable Nutrition Adequate Respiratory WNL Sensory Perception No impairment 03/09/2023 8:01 EDT Early Warning Score 2.00 03/09/2023 8:00 EDT Sodium Chloride 3 mL mL Height 170 cm Temperature 97.7 DegF Temperature Route Oral Pulse Rate 71 bpm Respiratory Rate 18 br/min Systolic Blood Pressure 113 mm Hg Diastolic Blood Pressure 68 mm Hg Blood pressure sites Arm, left Mean Arterial Pressure 83 mm Hg Pulse Pressure 45 mm Hg Oxygen Saturation 100 % Mode of Delivery (Oxygen) Room air Vital Signs Form Vital Signs Form 03/09/2023 5:00 EDT Hygiene Assist 03/09/2023 4:49 EDT Early Warning Score 0.00 03/09/2023 4:48 EDT Acetaminophen 650 mg mg Ibuprofen 800 mg mg Pain Intensity 9 Pain Intensity 9 Pain Scale Type 0 - 10 Pain scale Pain Scale Type 0 - 10 Pain scale 03/09/2023 4:47 EDT Hydromorphone 2 mg mg Respiratory Rate 18 br/min Pain Intensity 9 Pain Scale Type 0 - 10 Pain scale Sedation Scale Awake and alert 03/09/2023 0:00 EDT Important Message about Medicare Rights An Important Message from Medicare aboutyour Rights Important Message about Medicare Rights An Important Message from Medicare about your Rights 03/09/2023 3:27 EDT Early Warning Score 0.00 03/09/2023 3:00 EDT Temperature 98 DegF Temperature Route Oral Pulse Rate 60 bpm Respiratory Rate 18 br/min Systolic Blood Pressure 140 mm Hg H Diastolic Blood Pressure 70 mm Hg Blood pressure sites Arm, right Oxygen Saturation 100 % Mode of Delivery (Oxygen) Room air 03/09/2023 2:00 EDT Acetaminophen Not Done: Assessed, No Action Needed (Not Done) Pain Intensity Not Done: Assessed, No Action Needed (Not Done) Pain Scale Type Not Done: Assessed, No Action Needed (Not Done) 03/09/2023 1:52 EDT Early Warning Score 0.00 03/09/2023 1:52 EDT Early Warning Score 0.00 03/09/2023 1:51 EDT Est Creatinine Clearance 77.37 mL/min Early Warning Score 0.00 03/09/2023 1:27 EDT Early Warning Score 0.00 03/09/2023 0:25 EDT WBC 9.4 k/mm3 RBC 4.63 m/mm3 Hgb 14.0 Gm/dL Hct 43.2 % MCV 93.3 femtoliters MCH 30.2 pg MCHC 32.4 g/dL L Platelet Count 231 k/mm3 RDW-SD 44.1 femtoliters MPV 10.6 femtoliters Nucleated RBC (Automated) 0.0 #/100 WBC'S Abs. NRBC 0.0 k/mm3 Sodium 140 mmol/L Potassium 3.9 mmol/L Chloride 103 mmol/L Bicarbonate Level 26 mmol/L Anion Gap 11 Glucose Level 84 mg/dL BUN 14 mg/dL Creatinine-Blood 0.9 mg/dL Estimated GFR Creatinine 84 ML/MIN/1.73 M2 Calcium 9.1 mg/dL 03/09/2023 0:00 EDT Sodium Chloride Not Done: Assessed, No Action Needed (Not Done) Imaging : RADIOLOGY 03/08/2023 19:05 EDT MRI Lumbar Spine W/O Contrast MRI Lumbar Spine W/O Contrast Impression and Plan 42-year-old female with history of chronic lower back pain, bipolar disorder, hyperlipidemia presents with lower back pain. She intermittently experiences numbness radiating down her right leg. She denies bladder incontinence or saddle anesthesia. Patient states she has had some relief in the past steroid injections and physical therapy. Patient initially did get some relief with IV Toradol and Dilaudid but her pain persisted so she was admitted for further pain management. Given the recent unchanged MRI, a new acute structural source of her pain is less likely. Patient has had proven relief in the past (2014) of similar pain with epidural steroid injections [place] [facility] [place] [facility]. Based on herphysical exam with point tenderness over R SI joint, pain appears to be SI-joint related. She was amendable to R SI joint steroid injection at [facility] [place] [facility] Recommendations: -R SI joint steroid injection tentatively scheduled for tomorrow at 8am at [facility] -Continue scheduled Tylenol, ibuprofen, oxycodone -Continue PRN Dilaudid 2mg q4 -Evaluate pain after injection, if persists, APS will make further recommendations Patient seen and case discussed with Dr. Mayo Attending Attestation: Patient personally seen by me and discussed with the resident. I agree with the plan as outlined above. Patient had previously had benefit from oral steroids as well as APPLE injection in 2014. She has no clear radicular symptoms with exquisitely tender right SI region. Unable to perform provocative maneuvers due to severity of pain. Minimal tenderness midline and in the paraspinous regions and pain not as exacerbated by extension or facet loading. Risks and benefits of a trial of SI injection discussed with patient. Patient may benefit from PM&R if acutely her symptoms can be abated. Jacob Mayo M.D. Chair, Department of Anesthesiology [facility] Note * Seema Agosto RN: PERFORM Event Display: Discharge/Transfer Note Hospital Authored Date: [id number] Nursing Discharge Note Entered On: 03/16/2023 9:33 EDT Performed On: 03/16/2023 9:32 EDT by Seema Agosto RN Nursing Discharge Note 2 Discharge Time : 03/16/2023 9:15 EDT Discharge Level of Care at Discharge : Homehealth/VNA Discharge VNA/Hospice/Home Care(v001) : [facility] [phone] Patient Left Unit Via : Wheelchair Patient Accompanied Off Unit with : Responsible adult DC Instructions Provided & Signed by Pt : Yes Patient Understands D/C Instructions : Yes Patient Instructions Discharge Signed : Yes Did Pt have Specialty Bed or Wound Vac : No Seema Agosto RN - 03/16/2023 9:32 EDT * Mesfin Espinal MD, Liang: PERFORM Event Display: Discharge/Transfer Note Hospital Authored Date: [id number] Patient: ??JO ANN LEDESMA ? Age:??42 Years?Sex:??Female?:??1980? Patient: ??JO ANN LEDESMA ? Age:??42 Years?Sex:??Female?:??1980?? Patient Information Discharge Location: Primary Care Physician: Todd Rice NP Admit Date/Time: 03/06/23 15:03 ?? Discharge Disposition Discharge Disposition: D/c home ?? Discharge Diagnosis Acute on chronic lower back pain L foot paresthesia + L leg/foot weakness; suspected lumbar radiculopathy SI joint pain s/p SI joint injection 03/10 Nausea - resolved Medicaton effect Chronic B12 deficiency secondary to remote colonic resection ?? Discharge Medications Acetaminophen (acetaminophen 325 mg oral tablet)?650?Milligram?By Mouth?Every 6 hours?as needed?Pain , Mild Atorvastatin (atorvastatin 10 mg oral tablet)?1?tab(s)?10?Milligram?By Mouth?Daily at bedtime Cyanocobalamin (cyanocobalamin 1000 mcg/ml injectable solution)?1,000?Microgram?Intramuscular?Every 28 days Docusate (docusate sodium 100 mg oral capsule)?1?capsule?100?Milligram?By Mouth?Daily?as needed?as needed for constipation Folic Acid (folic acid 1 mg oral tablet)?1?Milligram?1?tablet?By Mouth?Daily Ibuprofen (ibuprofen 800 mg oral tablet)?800?Milligram?By Mouth?Every 8 hours Leuprolide (Lupron Depot 3.75 mg intramuscular kit)?3.75?Milligram?Intramuscular?Every 28 days Morphine (morphine 15 mg/8 to 12 hr oral tablet, extended release)?15?Milligram?By Mouth?Every 12 hours Morphine (morphine 15 mg oral tablet, immediate release)?7.5?Milligram?By Mouth?Every 4hours?as needed?Pain , Moderate?for 7?Days Nystatin Topical (nystatin topical 335871 u/gm powder)?1?ranjan?Topically?2 times a day?PRN PredniSONE (predniSONE 20 mg oral tablet)?40?Milligram?By Mouth?Daily?for 9?Days?with food or milkPrednisone taper40 mg x 3 days20 mg x 3 days10 mg x 3 days Senna (senna 187 mg oral tablet)?1?tab(s)?8.6?Milligram?By Mouth?Daily?as needed?as needed for constipation Topiramate (topiramate 100 mg oral tablet)?3 tablets?By Mouth?Daily at bedtime Trazodone (traZODone 100 mg oral tablet)?2 tablets?By Mouth?Daily at bedtime ?? Medications Started Morphine ER 15mg BID Morphine IR 7.5mg BID Prednisone 40mg for 3 days?? until 03/16 - 07/19 Prednsione 20mg for 3 days?? 03/19 - 03/21?? Prednisone 10mg for 3 days 03/22- 03/24 PCP Follow-Up/Heads-Up - Patient admitted due to exacerbation of her chronic back pain which improved??with??a ??regimen of??morphine ER 15mg BID and morphine IR 7.5mg every 4 hours ?? Future Appointments ??Thursday ??2022 ??1:50 PM EDT ?With: Last Loving DO ?Where: [facility] [address] [place] [address] ??[place] [address]- ?Status: Pending ?? Hospital Course ??42-year-old female??with history of chronic lower back pain,??bipolar disorder,??hyperlipidemia??presents with??lower back pain.?? She intermittently??experiences numbness??radiating??down her??right leg.?? She denied??bladder,?? bowel incontinence??or saddle anesthesia, shortness of breath, abdominal pain, fevers and?? IV drug use.?? She had an MRI??a year ago when she was here for a similar reason??and it revealed degenerative disc disease without any cord compression.?Inpatient, repeat MRI was performed on 03/08/2023 which revealed??multilevel findings of degenerative disc disease with out evidence of significant spinal stenosis or focal nerve root compression.?? Acute Pain Services was consulted?? on (03/10) and recommended the regimen of morphine ER 15mg BID , morphine IR 7.5mg every 4 hours to breakthrough the pain.??With Pain control aand physical therapy??the patient's ??mobility improved and??her pain??was more controlled. ?? Objective Acute on chronic lower back pain L foot paresthesia + L leg/foot weakness; suspected lumbar radiculopathy SI joint pain s/p SI joint injection 03/10 She intermittently??experiences numbness??radiating??down her??right leg.?? She denied??bladder,?? bowel incontinence??or saddle anesthesia, shortness of breath, abdominal pain, fevers and?? IV drug use.?? She had an MRI??a year ago when she was here for a similar reason??and it revealed degenerative disc disease without any cord compression.?Inpatient, repeat MRI was performed on 03/08/2023 which revealed??multilevel findings of degenerative disc disease without evidence of significant spinal stenosis or focal nerve root compression.?? Acute Pain Services was consulted?? on (03/10) and recommended the regimen of morphine ER 15mg BID , morphine IR 7.5mg every 4 hours to breakthrough the pain.??With Pain control aand physical therapy??the patient's ??mobility improved and??her pain??wasmore controlled. Started high dose prednisone on 03/11 for 5d followed by taper (will be managed by PCP outpt) given that this has worked for her before. Patientt encouraged to f/u with PCP outpt. We encourage??that PCP consider referral to??neurology, PM&R, and/or rheum (?ankylosing spondylitis) to?? explore long-term pain management options. ?? Recommendations: -??PO morphine 15mg ER q12h and PO morphine 7.5mg IR??q4 PRN for breakthrough pain - ??PO prednisone 60 mg for 5 days Start date (03/11);?taper Prednisone as the following: ? -Prednisone 40mg for 3 days?? until 03/16 - 03/18 ? -Prednsione 20mg for 3 days?? 03/19 - 03/21? -Prednisone 10mg for 3 days 03/22- 03/24 ??- Tylenol 650 mg every 4 hours - Ibuprofen 800 mg every 8 hours - K-pads and ice for further management of pain - PT + encourage ambulation? Nausea - resolved Medicaton effect Chronic B12 deficiency secondary to remote colonic resection Received 1000 mcg B12 shot IM on 03/10 for chronic B12 deficiency 2/2 colonic resection in 2008 for diverticulitis. Pt says she typically experiences severe nausea, vomiting (retching exacerbates her back pain), headache, and general malaise that peaks around 2-3 days after receiving a shot Symptoms resolved.?? Prn Zofran. ? Opioid-induced constipation C/w Bowel meds. ?Vital Signs?Temperature: 97.7 DegF (03/15/23 07:24:00) ??Temperature Route: Oral (03/15/23 07:24:00) ??Pulse Rate: 61 bpm (03/15/23 07:24:00) ??Respiratory Rate: 17 br/min (03/15/23 07:35:00) ??Systolic Blood Pressure: 129 mm Hg (03/15/23 07:24:00) ??Diastolic Blood Pressure: 80 mm Hg (03/15/23 07:24:00) ??Blood pressure sites: Arm, right (03/15/23 07:24:00) ??Mean Arterial Pressure: 96 mm Hg (03/15/23 07:24:00) ??Pulse Pressure: 49 mm Hg (03/15/23 07:24:00) ??Oxygen Saturation: 100 % (03/15/23 07:24:00) ??Mode of Delivery (Oxygen): Room air (03/15/23 07:24:00) ??Early Warning Score: 2 (03/15/23 07:42:38) ?? Physical Exam General: Patient in no acute distress?? Respiratory: bilateral equal air entry, clear to auscultation with no wheezes or crackles. Adequaterespiratory rate and effort on room air.?? CVS: regular rate and rhythm, S1 and S2 present, no murmurs, rubs or gallops. No JVD.?? Abdomen: soft, non tender, non distended, bowel sounds present. Scar in the middle of the abdomen. Protrusion due to hernia. Extremities: no cyanosis, pulses present and equal bilaterally. No edema noted b/l.?? Neuro: alert and oriented x3. Cranial nerves II-XII grossly intact. Moving all extremities spontaneously. Normal tones, following simple commands ?Consultants ??Acute Pain Services ?? Pending Results Add On Lab Order ordered on 03/09/2023 Add On Lab Order ordered on 03/09/2023 ?? Follow-Up Appointments Added Follow Up ?Time Frame ?Comments Dwayne MOE , Todd Rice NP , Todd Leyva ?? Patient Instructions ?? You were diagnosed with?? exacerbation of your chronic back pain. You were given in the hospital morphine extended release ??15mg?every 12 hours and morphine??immediate release 7.5 mg every 4 hours as needed ??to break through the pain.??These medications will be??[facility].? Please contact your primary care provider for an appointment 3-5 days.? If you develop, urinary incontinence, fecal incontinence,?sensory loss around the anus or genital area, weakness, fever, chest pains, palpitations, dizziness please come back to the Emergency Department. ?? Home Health Face to Face ^HomeHealthFTF Results Discharge Labs BLOOD COUNT & DIFF WBC 9.4 k/mm3 ()?? 03/09/2023 00:25 RBC 4.63 m/mm3 ()?? 03/09/2023 00:25 Hgb 14.0 Gm/dL ()?? 03/09/2023 00:25 Hct 43.2 % ()?? 03/09/2023 00:25 MCV 93.3 femtoliters ()?? 03/09/2023 00:25 MCH 30.2 pg ()?? 03/09/2023 00:25 MCHC 32.4 g/dL (Low)?? 03/09/2023 00:25 Platelet Count 231 k/mm3 ()?? 03/09/2023 00:25 RDW-SD 44.1 femtoliters ()?? 03/09/2023 00:25 MPV 10.6 femtoliters ()?? 03/09/2023 00:25 Nucleated RBC (Automated) 0.0 #/100 WBC'S ()?? 03/09/2023 00:25 Abs. NRBC 0.0 k/mm3 ()?? 03/09/2023 00:25 Abs. Neut 6.4 k/mm3 ()?? 03/06/2023 11:04 Abs. Lymph 3.3 k/mm3 (High)?? 03/06/2023 11:04 Abs. Lavaca 0.9 k/mm3 ()?? 03/06/2023 11:04 Abs. Eo 0.1 k/mm3 ()?? 03/06/2023 11:04 Abs. Baso 0.1 k/mm3 ()?? 03/06/2023 11:04 Neut % 59.3 % ()?? 03/06/2023 11:04 Lymph % 30.8 % ()?? 03/06/2023 11:04 [place] % 8.3 % ()?? 03/06/2023 11:04 Eos % 0.6 % ()?? 03/06/2023 11:04 Baso % 0.5 % ()?? 03/06/2023 11:04 Imm Gran 0.5 % ()?? 03/06/2023 11:04 Abs. Imm Gran 0.1 k/mm3 ()?? 03/06/2023 11:04 ?? CHEM GENERAL Sodium 140 mmol/L ()?? 03/09/2023 00:25 Potassium 3.9 mmol/L ()?? 03/09/2023 00:25 Chloride 103 mmol/L ()?? 03/09/2023 00:25 Bicarbonate Level 26 mmol/L ()?? 03/09/2023 00:25 Anion Gap 11 ()?? 03/09/2023 00:25 Glucose Level 84 mg/dL ()?? 03/09/2023 00:25 BUN 14 mg/dL ()?? 03/09/2023 00:25 Creatinine-Blood 0.9 mg/dL ()?? 03/09/2023 00:25 Estimated GFR Creatinine 84 ML/MIN/1.73 M2 ()?? 03/09/2023 00:25 Calcium 9.1 mg/dL ()?? 03/09/2023 00:25 Vitamin B12 Level 771 pg/mL ()?? 03/09/2023 00:25 Folic Acid Level 23.4 ng/mL ()?? 03/09/2023 00:25 C-Reactive Protein <0.3 mg/dL ()?? 03/09/2023 00:25 ? HEME OTHER Sed Rate 5 mm/hr ()?? 03/09/2023 00:25 ? UA/URINALYSIS Appear/Color, Urine LIGHT YELLOW ()?? 03/06/2023 16:20 Specific Hamilton, Urine 1.019 ()?? 03/06/2023 16:20 pH, Urine 6.0 ()?? 03/06/2023 16:20 Albumin, Urine NEGATIVE ()?? 03/06/2023 16:20 Glucose, Urine NEGATIVE ()?? 03/06/2023 16:20 Ketones, Urine NEGATIVE ()?? 03/06/2023 16:20 Bilirubin, Urine NEGATIVE ()?? 03/06/2023 16:20 Hemoglobin, Urine NEGATIVE ()?? 03/06/2023 16:20 Nitrite, Urine NEGATIVE ()?? 03/06/2023 16:20 Leukocyte, Urine NEGATIVE ()?? 03/06/2023 16:20 Urobilinogen NORMAL mg/dL ()?? 03/06/2023 16:20 WBC's, Urine 1 /HPF ()?? 03/06/2023 16:20 RBC's, Urine 2 /HPF ()?? 03/06/2023 16:20 Bacteria SLIGHT HPF (Abnormal)?? 03/06/2023 16:20 Squamous Epith 2 /HPF ()?? 03/06/2023 16:20 Mucus SLIGHT /LPF ()?? 03/06/2023 16:20 Hold Urine Culture Testing available 48 hours from time of collection. ()?? 03/06/2023 16:20 ? URINE OTHER Est Creatinine Clearance 77.37 mL/min ()?? 03/09/2023 01:51 ? VIROLOGY COVID-19 by RT-PCR NEGATIVE ()?? 03/06/2023 15:09 ? Microbiology ?? COVID-19 (Novel Coronavirus), Rapid PCR?? Completed?? Source: Nasal Body Site: Nose Collected Dt/Tm: 03/06/2023 15:02 Last Updated Dt/Tm: 03/06/2023 16:50 ? 45??minutes spent on discharge * Seema Agosto RN: PERFORM Event Display: Patient Education/Instruction Authored Date: [id number] Inpatient Adult Discharge Instructions [address] [address] Name: JO ANN LEDESMA : 1980 Visit: 03/06/2023 15:03:00 Current Date: 03/16/2023 08:41 Account: [id number] Inpatient Adult Discharge Instructions We would like to thank you for allowing us to assist you with your healthcare needs. The following includes patient education materials and information regarding your injury/illness. Our entire staffstrives to provide an excellent experience for our patients and their families. PLEASE ENSURE YOU FOLLOW-UP PER THE INSTRUCTIONS BELOW! ?? YOUR OPINION IS IMPORTANT TO US! Please complete the survey you may receive by mail or email. Your feedback will be used to make improvements to the healthcare experiences of our patients and their families. Surveys are administered by [employer] ?? If further treatment with your primary care physician or another doctor is recommended, it is important for you to keep the appointment. Call your primary care physician or return to the Emergency Department immediately if your condition worsens, fails to improve, or new symptoms develop. If you need to find a doctor, you can call [facility] for a referral at [phone] or toll free at [phone] or log in to [email or web address].. ?? You can view and manage your care through the patient portal or by using a health care ranjan of your choosing. [employer] is a website that allows you to securely view your medical information including your hospital discharge summary, office visit summaries, medications and follow-up visits. You can also request appointments, renew medications, and request access to your medical information using a health care ranjan of your choosing, or just ask a question. You can enroll at [email or web address] or register during your next office visit. You have been discharged from [facility], Patient Care Unit: W4. If you have any questions regarding these instructions after you leave, please call us and we will be happy to assist you. [facility] Your Care Team Attending Physician Mesfin Espinal MD, Liang Consulting Providers Edinson Garland MD Discharging Providers Mesfin Espinal MD, Liang Reason for Admission Back pain Your Diagnosis Back pain Hyperlipidemia Bipolar disorder Tests Performed Below is a partial list of the tests performed during your hospitalization. You may have had other tests and procedures not included in this list. Please discuss all test results with your provider. Basic Metabolic Panel C-REACTIVE PROTEIN CBC CBC w/ Differential COVID-19 (Novel Coronavirus), Rapid PCR FOLIC ACID SEDIMENTATION RATE,AUTOMATED Urinalysis w/hold for Urine Culture VITAMIN B12 MRI Lumbar Spine W/O Contrast Primary Care Provider Todd Rice NP Advance Directive Health Care Proxy on File Yes - Health Care Proxy Discharge Vitals Temperature: 98.3 DegF Height: 170 cm Pulse Rate: 63 bpm ?? Respiratory Rate: 18 br/min ?? Systolic Blood Pressure: 129 mm Hg ?? Diastolic Blood Pressure: 82 mm Hg ?? Oxygen Saturation: 100 % ?? Studies Pending All tests and labs ordered during this hospital stay have been completed unless listed below. Please discuss all pending results with your provider listed above in these instructions. ?? Add On Lab Order What to do next Instructions From Your Doctor You were diagnosed with?? exacerbation of your chronic back pain. You were given in the hospital morphine extended release ??15mg?every 12 hours and morphine??immediate release 7.5 mg every 4 hours as needed ??to break through the pain.??These medications will be??sent??to ??the [facility].? Please contact your primary care provider for an appointment 3-5 days.? If you develop, urinary incontinence, fecal incontinence,?sensory loss around the anus or genital area, weakness, fever, chest pains, palpitations, dizziness please come back to the Emergency Department. ?? Discharge Orders Scheduled Follow-Up Appointments Thursday 1:50 PM EDT ?? With: Last Loving DO [facility] [address] [place] [id number]- Status: Pending You Need to Schedule the Following Appointments Follow Up with??Todd Rice NP Where: [address] [place] [address]- Follow Up with??Todd Rice NP Where: [address] [place] [address]- Discharge Medications JO ANN LEDESMA :1980 Visit Date:03/06/2023 Medications: Please continue your medications until treatment is completed or stopped by your provider. Medications not listed below should be discontinued. Discuss any questions related to medications with your provider. What How Much When Instructions Next Dose New Ibuprofen (ibuprofen 800 mg oral tablet) 800 Milligram Oral Every 8 hours Pickup at [place] [address] Today 1pm New Morphine (morphine 15 mg oral tablet, immediate release) 7.5 Milligram Oral Every 4 hours as needed for Pain , Moderate Duration: 7 Days Pickup at [place] [address] as needed New Morphine (morphine 15 mg/ 8 to 12 hr oral tablet, extended release) 15 Milligram Oral Every 12 hours Pickup at [place] [address] Tonight 9pm New Ondansetron (ondansetron 4 mg oral tablet) 1 tab(s) Oral Every 8 hours as needed for Nausea & Vomiting Pickup at [place] [address] as needed Changed PredniSONE (predniSONE 20 mg oral tablet) 40 Milligram Oral Daily Duration: 9 Days with food or milk Prednisone taper 40 mg x 3 days 20 mg x 3 days 10 mg x 3 days ?? Pickup at [place] [address] Tues 9am Unchanged Acetaminophen (acetaminophen 325 mg oral tablet) 650 Milligram Oral Every 6 hours as needed for Pain , Mild as needed Unchanged Atorvastatin (atorvastatin 10 mg oral tablet) 1 tab(s) Oral Daily at Bedtime tonight 9pm Unchanged Cyanocobalamin (cyanocobalamin 1000 mcg/ ml injectable solution) 1,000 Microgram Intramuscular Every 28 days as ordered Unchanged Docusate (docusate sodium 100 mg oral capsule) 1 capsule Oral Daily as needed for as needed for constipation as needed Unchanged Folic Acid (folic acid 1 mg oral tablet) 1 tab(s) Oral Daily Tues 9am Unchanged Leuprolide (Lupron Depot 3.75 mg intramuscular kit) 3.75 Milligram Intramuscular Every 28 days as ordered Unchanged Nystatin Topical (nystatin topical 560271 u/ gm powder) 1 ranjan Topically Twice a day PRN ?? as needed Unchanged Senna (senna 187 mg oral tablet) 1 tab(s) Oral Daily as needed for as needed for constipation as needed Unchanged Topiramate (topiramate 100 mg oral tablet) 3 tablets Oral Daily at Bedtime Tonight 9pm Unchanged Trazodone (traZODone 100 mg oral tablet) 2 tablets Oral Daily at Bedtime Tonight 9pm Pharmacy Information [facility] 3: [address] [place], [place] [id number] [phone] ?? What How Much When Comments Stop Taking Cetirizine (cetirizine 10 mg oral tablet) 1 tab(s) Oral Daily Stop Taking Cyclobenzaprine (Flexeril 10 mg oral tablet) 10 Milligram Oral Twice a day as needed for Spasm Stop Taking Lorazepam (LORazepam 1 mg oral tablet) 1 tab(s) Oral Daily as needed for as needed for anxiety Stop Taking Propranolol (propranolol 10 mg oral tablet) 1 tab(s) Oral 3 times a day as needed for Anxiety Stop Taking Scopolamine (Transderm-Scop 1 mg/ 72 hr transdermal film, extended release) 1 Film Topically Every 72 hours as needed for Nausea & Vomiting Test Results Below is a partial list of the most recent Laboratory test results done prior to this discharge. You may have had other tests and procedures not included in this list. Please discuss all test resultswith your provider. Est Creatinine Clearance - 77.37 mL/min (03/09/2023) Basic Metabolic Panel (03/09/2023) ???Sodium - 140 mmol/L???Potassium - 3.9 mmol/L???Chloride - 103 mmol/L???Bicarbonate Level - 26 mmol/L???Anion Gap - 11???Glucose Level - 84 mg/dL???BUN - 14 mg/dL???Creatinine-Blood - 0.9 mg/dL???Estimated GFR Creatinine - 84 ML/MIN/1.73 M2???Calcium - 9.1 mg/dL C-REACTIVE PROTEIN (03/09/2023) ? ?C-Reactive Protein - <0.3 mg/dL CBC (03/09/2023) ???WBC - 9.4 k/mm3???RBC - 4.63 m/mm3???Hgb - 14.0 Gm/dL???Hct - 43.2 %???MCV - 93.3 femtoliters???MCH - 30.2 pg???MCHC - 32.4 g/dL???Platelet Count - 231 k/mm3???RDW-SD - 44.1 femtoliters???MPV - 10.6 femtoliters???Nucleated RBC (Automated) - 0.0 #/100 WBC'S???Abs. NRBC - 0.0 k/mm3 CBC w/ Differential (03/06/2023) ???WBC - 10.7 k/mm3???RBC - 4.34 m/mm3???Hgb - 13.4 Gm/dL???Hct - 39.7 %???MCV - 91.5 femtoliters???MCH - 30.9 pg???MCHC - 33.8 g/dL???Platelet Count - 254 k/mm3???RDW-SD - 43.9 femtoliters???MPV - 10.4 femtoliters???Nucleated RBC (Automated) - 0.0 #/100 WBC'S???Abs. NRBC - 0.0 k/mm3???Abs. Neut - 6.4 k/mm3???Abs. Lymph - 3.3 k/mm3???Abs. Lavaca - 0.9 k/mm3???Abs. Eo - 0.1 k/mm3???Abs. Baso - 0.1 k/mm3???Neut % - 59.3 %???Lymph % - 30.8 %???[place]aca % - 8.3 %???Eos % - 0.6 %???Baso % - 0.5 %???Imm Gran - 0.5 %???Abs. Imm Gran - 0.1 k/mm3 COVID-19 (Novel Coronavirus), Rapid PCR (03/06/2023) ???COVID-19 by RT-PCR - NEGATIVE FOLIC ACID (03/09/2023) ???Folic Acid Level - 23.4 ng/mL SEDIMENTATION RATE,AUTOMATED (03/09/2023) ???Sed Rate - 5 mm/hr Urinalysis w/hold for Urine Culture (03/06/2023) ???Appear/Color, Urine - LIGHT YELLOW???Specific Hamilton, Urine - 1.019???pH, Urine - 6.0???Albumin, Urine - NEGATIVE???Glucose, Urine - NEGATIVE???Ketones, Urine - NEGATIVE???Bilirubin, Urine - NEGATIVE???Hemoglobin, Urine - NEGATIVE???Nitrite, Urine - NEGATIVE???Leukocyte, Urine - NEGATIVE???Urobi linogen - NORMAL???WBC's, Urine - 1 /HPF???RBC's, Urine - 2 /HPF???Bacteria - SLIGHT???Squamous Epith - 2 /HPF???Mucus - SLIGHT???Hold Urine Culture - Testing available 48 hours from time of collection. VITAMIN B12 (03/09/2023) ???Vitamin B12 Level - 771 pg/mL Allergies (NKA means No Known Allergies) Reglan aloe vera topical Problems Active Problems??(7) Anxiety?? Chronic low back pain?? Depression?? GERD (gastroesophageal reflux disease)?? Morbid obesity?? Obese class II?? Stress incontinence?? Education Materials Below is the list of Educational Leaflet Providered with your Discharge Instructions. Valuables and Belongings I fully understand and agree that [facility] accepts no responsibility for all my personal property including clothing, toilet articles, radios, jewelry, dentures, hearing aids, rings, money, or any other property that is in my possession or is brought to me after admission. I understand certain valuables may be placed in a hospital safe for a short period of time. I understand that the hospital is not liable for loss or damage due to accident, fire, or other natural occurrence while said property is in the safe. I accept full responsibility for any personal property that I keep with me, and will not hold the hospital responsible in case of loss or disappearance. I acknowledge that i have been encouraged to send valuables and belongings home. ?? No Valuables/Belongings: No valuables/belongings present Review of Valuable and Belonging List: With patient Date for Pt to Sign Valuables/Belongings: 03/06/23 17:55:00 ?? Other Discharge Information ? Case Management Discharge Plan?? Discharge Plan?? Discharge Agency Information?? Discharge Level of Care at Discharge: Homehealth/VNA Name of Agency #1: [facility] Discharge VNA/Hospice/Home Care: [facility] [phone] Service Start Date and Time #1: 03/13/23 15:00:00 ?? Service Categories #1: Physical Therapy, Retirement ?? Service Comments #1: The above agency will be providing visiting home services. They should contactyou within 24 ??? 48 hours of returning home. If they do not, please contact the company at the above number. ?? Pulmonary Rehab Status?? Pulmonary Rehab Discharge Status?? Respiratory Rate: 18 br/min ? Common Emergency Awareness Tips IS IT A STROKE? Act FAST and Check for these signs: FACE Does the face look uneven? ARM Does one arm drift down? SPEECH Does their speech sound strange? TIME Call at any sign of stroke ?? Heart Attack Signs Chest discomfort: Most heart attacks involve discomfort in the center of the chest and lasts more than a few minutes, or goes away and comes back. It can feel like uncomfortable pressure, squeezing, fullness or pain. Discomfort in upper body: Symptoms can include pain or discomfort in one or both arms, back, neck, jaw or stomach. Shortness of breath: With or without discomfort. Other signs: Breaking out in a cold sweat, nausea, or lightheaded. Remember, MINUTES DO MATTER. If you experience any of these heart attack warning signs, call to get immediate medical attention! ?? Smoking can increase your chances of developing chronic health problems and can cause harmful effects to other family members in your house. If you smoke, you are strongly encouraged to quit. Please call [facility] at [phone] or [phone] ([phone] or log in to [email or web address] for referrals to smoking cessation programs. ?? 828 Suicide & Crisis Lifeline is available 23/03 if you or someone you know needs to find a reason to keep living. By calling 152 you'll be connected to a skilled, trained counselor at a crisis center in your area. INPATIENT DISCHARGE INSTRUCTIONS SIGNATURE PAGE JO ANN LEDESMA Location:[facility] Registration Date and Time:03/06/2023 15:03 EDT Primary Care Physician: Todd Rice NP, Attending Physician: Mesfin Espinal MD, Liang, I JO ANN LEDESMA, have received the above patient education materials/instructions and have verbalized understanding. If ambulance or transport services are being used I further acknowledge being given a choice of service. ?? If you need to contact me, please call me at this number: . Patient/Senior Sas Developer Name: Patient/Senior Sas Developer Signature: Relationship to Patient: Witness Name/Signature: Date: * Tabitha Nick MD: MODIFY, MODIFY, MODIFY, MODIFY, MODIFY, MODIFY, MODIFY, PERFORM, MODIFY Event Display: Discharge/Transfer Note Hospital Authored Date: [id number] Patient: ??JO ANN LEDESMA ? Age:??42 Years?Sex:??Female?:??1980?? Patient Information Discharge Location: Primary Care Physician: Dwayne MOE , Todd Leyva Admit Date/Time: 03/06/23 15:03 Discharge Disposition Discharge Disposition: Discharge Diagnosis Back pain (M54.9) _ Discharge Medications Acetaminophen (acetaminophen 325 mg oral tablet)?650?Milligram?By Mouth?Every 6 hours?as needed?Pain , Mild Atorvastatin (atorvastatin 10 mg oral tablet)?1?tab(s)?10?Milligram?By Mouth?Daily at bedtime Cyanocobalamin (cyanocobalamin 1000 mcg/ml injectable solution)?1,000?Microgram?Intramuscular?Every 28 days Docusate (docusate sodium 100 mg oral capsule)?1?capsule?100?Milligram?By Mouth?Daily?as needed?as needed for constipation Folic Acid (folic acid 1 mg oral tablet)?1?Milligram?1?tablet?By Mouth?Daily Ibuprofen (ibuprofen 800 mg oral tablet)?800?Milligram?By Mouth?Every 8 hours Leuprolide (Lupron Depot 3.75 mg intramuscular kit)?3.75?Milligram?Intramuscular?Every 28 days Morphine (morphine 15 mg/8 to 12 hr oral tablet, extended release)?15?Milligram?By Mouth?Every 12 hours Morphine (morphine 15 mg oral tablet, immediate release)?7.5?Milligram?By Mouth?Every 4hours?as needed?Pain , Moderate?for 7?Days Nystatin Topical (nystatin topical 767177 u/gm powder)?1?ranjan?Topically?2 times a day?PRN PredniSONE (predniSONE 20 mg oral tablet)?40?Milligram?By Mouth?Daily?for 9?Days?with food or milkPrednisone taper40 mg x 3 days20 mg x 3 days10 mg x 3 days Senna (senna 187 mg oral tablet)?1?tab(s)?8.6?Milligram?By Mouth?Daily?as needed?as needed for constipation Topiramate (topiramate 100 mg oral tablet)?3 tablets?By Mouth?Daily at bedtime Trazodone (traZODone 100 mg oral tablet)?2 tablets?By Mouth?Daily at bedtime ? Quality Measures Tobacco Use Treatment:? Inpatient Medications Medications (23) Active SCHEDULED: (13) Acetaminophen 325 mg Tablet (Acetaminophen Tablet) ??650 mg, By Mouth, Every 4 hours Atorvastatin 10 mg Tablet (atorvastatin 10 mg oral tablet) ??10 mg, By Mouth, Daily at bedtime Ibuprofen 800 mg Tablet (ibuprofen 800 mg oral tablet) ??800 mg, By Mouth, Every 8 hours Lactulose 20 Gm/30mL Syrup (lactulose 10 gm/15 ml oral syrup) ??20 Gm 30 mL, By Mouth, 2 times a day MorPHINE 15 mg CR Tablet (morphine 15 mg/8 to 12 hr oral tablet, extended release) ??15 mg, By Mouth, Every 12 hours NaCl 0.9% Flush 3ml (NaCL 0.9% Flush) ??3 mL, IV Push, Every 8 hours Polyethylene Glycol 17 Gm Powder (MiraLax Powder) ??17 Gm 1 pack/packet, By Mouth, Daily PredniSONE 20 mg Tablet (predniSONE 20 mg oral tablet) ??60 mg, By Mouth, Daily Remove Patch (Remove ??Patch) ??1 each, Topically, Every 72 hours Scopolamine 1 mg Patch ??1 mg 1 each, Topically, Every 72 hours Senna 8.6 mg / Docusate 50 mg tablet (Docusate/Senna Tablet) ??1 tablet, By Mouth, 2 times a day Topiramate 100 mg Tablet (Topiramate Tablet) ??300 mg, By Mouth, Daily at bedtime Trazodone 50 mg Tablet (traZODone 50 mg oral tablet) ??200 mg, By Mouth, Daily at bedtime CONTINUOUS: (0) PRN: (10) Bisacodyl 10 mg Suppository (Bisacodyl Supp) ??10 mg 1 supp, Rectally, Daily Dextromethorphan-Guaifenesin 20 mg-200 mg/10 mL Liqu UD (Robitussin DM Liquid) ??10 mL, By Mouth, Every 4 hours HYDROmorphone 2 mg/mL Inj Syringe (HYDROmorphone Inj) ??2 mg 1 mL, IV Push Slowly, Every 6 hours Melatonin 3 mg Tablet (Melatonin Tablet) ??3 mg, By Mouth, Daily at bedtime MorPHINE 15 mg Tablet (MorPHINE Immediate Release Tablet) ??7.5 mg, By Mouth, Every 4 hours NaCl 0.9% Flush 3ml (NaCL 0.9% Flush) ??3 mL, IV Push, Every 8 hours Polyethylene Glycol 17 Gm Powder (MiraLax Powder) ??17 Gm 1 pack/packet, By Mouth, Daily PROCHLORperazine 5mg/ml Inj (Compazine Inj) ??5 mg 1 mL, IV Push, Every 6 hours Senna 8.6 mg / Docusate 50 mg tablet (Docusate/Senna Tablet) ??1 tablet, By Mouth, 2 times a day Simethicone 80 mg Chewable Tablet (Simethicone Tablet) ??80 mg, Chew, 3 times a day ? Medications Started Morphine ER 15mg BID Morphine IR 7.5mg BID Prednisone 40mg for 3 days?? until 03/16 - 03/18 Prednsione 20mg for 3 days?? 03/19 - 03/21?? Prednisone 10mg for 3 days 03/22- 03/24 PCP Follow-Up/Heads-Up - Patient admitted due to exacerbation of her chronic back pain which improved??with??a ??regimen of??morphine ER 15mg BID and morphine IR 7.5mg every 4 hours ?? Future Appointments Thursday 1:50 PM EDT ?? With: Last Loving DO [facility] [address] [place] [id number]- Status: Pending Hospital Course ??42-year-old female??with history of chronic lower back pain,??bipolar disorder,??hyperlipidemia??presents with??lower back pain.?? She intermittently??experiences numbness??radiating??down her??right leg.?? She denied??bladder,?? bowel incontinence??or saddle anesthesia, shortness of breath, abdominal pain, fevers and?? IV drug use.?? She had an MRI??a year ago when she was here for a similar reason??and it revealed degenerative disc disease without any cord compression.? Tylenol and ibuprofen were not working and neither were her??muscle relaxers, she ??did get some relief with IV Toradol and Dilaudid??but her pain persisted so she was admitted for further pain management. Inpatient, MRI was performed on 03/08/2023 which revealed??multilevel findings of degenerative disc disease without evidence of significant spinal stenosis or focal nerve root compression.?? Acute Pain Services was consulted?? on (03/10) and recommended the regimen of morphine ER 15mg BID , morphine IR 7.5mg every 4 hours to breakthrough the pain and Dilaudid 0.2mg IV every six hours PRN ??if pain is very severe.??On 03/10, patient was due for her B12 injection and received it ??which made her nausea and vomiting for around??1-3 days??inpatient.?The patient is not nauseous or is vomiting anymore. Withthe morphine ER and morphine IR regimen and??physical therapy??the patient's ??mobility improved and??her pain??was more controlled. Objective Assessment and Plan #Acute on chronic lower back pain #L foot paresthesia + L leg/foot weakness; suspected lumbar radiculopathy #SI joint pain s/p SI joint injection 03/10 ?? Jo Ann has had??chronic lower back pain for past 20+ years. Has had 5-6 episodes of severe back pain like this in the past year, but came to the ED??on 03/06??due to new-onset lower extremity paresthesias associated w/ severe back pain that she has never experienced before. 1 wk before coming to ED, she??experienced a??transient episode of L anterior thigh paresthesia in lateral femoral cutaneous nerve distribution described as numbness, tingling, and pain last week that subsided throughout the day. This has never happened before. Several days later, noticed R foot paresthesia, felt like her R foot was??numb and tingling.?? 03/08 MRI lumbar w/o contrast showed no significant changes from MRI last year in January 2022;??multilevel findings of degenerative disc disease without evidence of significant spinal stenosis or focal nerve root compression. A central disc extrusion at L4-5 has actually??improved since 02/27/2022.??There is minimal displacement of the right L4 nerve root, which may account for pt's new-onset sensory and motor sx??+ absent/hyporreflexia in??L3-S2 distribution this past week.?It seems that her relatively few changes in??MRI findings compared to??last year??are not proportional to the worsening??level of pain or new-onset neuropathy??she is experiencing now. Given MRI and sx, this is most likely an acute exacerbation of chronic degenerative disc disease.??Our goal??is to achieve tolerable pain control for pt to regain ability to perform her baseline daily functions. Aim to wean off of IV Dilaudid??+??encourage??ambulation + work w/ PT to get pt closer to functional status for d/c. Started high dose prednisone on 03/11 for 5d followed by taper (will bemanaged by PCP outpt) given that this has worked for her before. Patientt encouraged to f/u with PCP outpt. We encourage??that PCP consider referral to??neurology, PM&R, and/or rheum (?ankylosing spondylitis) to?? explore long-term pain management options. ?? Today (03/15), the patient can ambulate better and get out of bed much with less effort than in heradmission. She has a complaint of a left shooting pain but there are no red flags present such as urinary incontinence, bowel incontinence, parianal/perineal sensory loss and fevers. Overalll the patient can ambulate much better??by using a walker to walk ??around the floor. ? Recommendations: ?? -??PO morphine 15mg ER q12h and PO morphine 7.5mg IR??q4 PRN for breakthrough pain - PO prednisone 60 mg for 5 days Start date (03/11);?taper Prednisone as the following: ? -Prednisone 40mg for 3 days?? until 03/16 - 03/18 ? -Prednsione 20mg for 3 days?? 03/19 - 03/21? -Prednisone 10mg for 3 days 03/22- 03/24 - Tylenol 650 mg every 4 hours - Ibuprofen 800 mg every 8 hours - K-pads and ice for further management of pain - PT + encourage ambulation?? -Consider Neurology and PMR services -??Consider Rheumatologic Services ? #Nausea #Chronic B12 deficiency secondary to remote colonic resection Pt somewhat improved??nausea from B12 shot + vomited several times 03/12.??On scopalamine patch started 03/10 + IV Compazine 5mg every 6 hours PRN to control nausea and vomiting with some improvement of sx. Received 1000 mcg B12 shot IM on 03/10 for chronic B12 deficiency 2/2 colonic resection in 2008 for diverticulitis.??Started ODN and scopolamine patch 03/10 prophylactically for nausea.? Pt says shetypically experiences severe nausea, vomiting (retching exacerbates her back pain), headache, and general malaise that peaks around 2-3 days after receiving a shot, so she expected the nausea to occur. ??Pt requested that she receive the B12 injection on 03/10 after discussion that it may exacerbateher existing back pain, would rather get it in hospital so??can monitor for effects. Today 03/15, patient is not having vomiting or nausea episodes and feels better. ? #Opioid-induced constipation Has??had intermittent constipation since admission, likely opioid-induced. ? Code Status: full Patient case and plan discussed with Dr. Jesus Nick MD?? Internal Medicine PGY-1 Pager:??[phone]?? Vital Signs?? Temperature: 97.7 DegF (03/15/23 07:24:00) Temperature Route: Oral (03/15/23 07:24:00) Pulse Rate: 61 bpm (03/15/23 07:24:00) Respiratory Rate: 17 br/min (03/15/23 07:35:00) Systolic Blood Pressure: 129 mm Hg (03/15/23 07:24:00) Diastolic Blood Pressure: 80 mm Hg (03/15/23 07:24:00) Blood pressure sites: Arm, right (03/15/23 07:24:00) Mean Arterial Pressure: 96 mm Hg (03/15/23 07:24:00) Pulse Pressure: 49 mm Hg (03/15/23 07:24:00) Oxygen Saturation: 100 % (03/15/23 07:24:00) Mode of Delivery (Oxygen): Room air (03/15/23 07:24:00) Early Warning Score: 2 (03/15/23 07:42:38) ? Intake/Output? 03/06 15:03 03/15 07:00 03/14 07:00 03/13 07:00 03/12 07:00 ?? 03/15 10:13 03/15 10:13 03/15 06:59 03/14 06:59 03/13 06:59 Intake ? 7310 ?0 ? 1140 ? 1790 ?960 Output ?0 ?0 ?0 ?0 ?0 Net Total ? 7310 ?0 ? 1140 ? 1790 ?960 ? Urine Count ? 20 ?0 ?5 ?4 ?3 ? . Physical Exam General: Patient in no acute distress?? Respiratory: bilateral equal air entry, clear to auscultation with no wheezes or crackles. Adequaterespiratory rate and effort on room air.?? CVS: regular rate and rhythm, S1 and S2 present, no murmurs, rubs or gallops. No JVD.?? Abdomen: soft, non tender, non distended, bowel sounds present. Scar in the middle of the abdomen. Protrusion due to hernia. Extremities: no cyanosis, pulses present and equal bilaterally. No edema noted b/l.?? Neuro: alert and oriented x3. Cranial nerves II-XII grossly intact. Moving all extremities spontaneously. Normal tones, following simple commands.?? [facility] Acute Pain Services Pending Results Add On Lab Order ordered on 03/09/2023 Add On Lab Order ordered on 03/09/2023 Follow-Up Appointments Added Follow Up ?Time Frame ?Comments Dwayne MOE , Todd Rice NP , Todd Leyva Patient Instructions You were diagnosed with?? exacerbation of your chronic back pain. You were given in the hospital morphine extended release ??15mg?every 12 hours and morphine??immediate release 7.5 mg every 4 hours as needed ??to break through the pain.??These medications will be??pres[facility] at [facility].? Please contact your primary care provider for an appointment 3-5 days.? If you develop, urinary incontinence, fecal incontinence,?sensory loss around the anus or genital area, weakness, fever, chest pains, palpitations, dizziness please come back to the Emergency Department. ?? Home Health Face to Face ^HomeHealthFTF Results Discharge Labs BLOOD COUNT & DIFF WBC 9.4 k/mm3 ()?? 03/09/2023 00:25 RBC 4.63 m/mm3 ()?? 03/09/2023 00:25 Hgb 14.0 Gm/dL ()?? 03/09/2023 00:25 Hct 43.2 % ()?? 03/09/2023 00:25 MCV 93.3 femtoliters ()?? 03/09/2023 00:25 MCH 30.2 pg ()?? 03/09/2023 00:25 MCHC 32.4 g/dL (Low)?? 03/09/2023 00:25 Platelet Count 231 k/mm3 ()?? 03/09/2023 00:25 RDW-SD 44.1 femtoliters ()?? 03/09/2023 00:25 MPV 10.6 femtoliters ()?? 03/09/2023 00:25 Nucleated RBC (Automated) 0.0 #/100 WBC'S ()?? 03/09/2023 00:25 Abs. NRBC 0.0 k/mm3 ()?? 03/09/2023 00:25 Abs. Neut 6.4 k/mm3 ()?? 03/06/2023 11:04 Abs. Lymph 3.3 k/mm3 (High)?? 03/06/2023 11:04 Abs. [place] 0.9 k/mm3 ()?? 03/06/2023 11:04 Abs. Eo 0.1 k/mm3 ()?? 03/06/2023 11:04 Abs. Baso 0.1 k/mm3 ()?? 03/06/2023 11:04 Neut % 59.3 % ()?? 03/06/2023 11:04 Lymph % 30.8 % ()?? 03/06/2023 11:04 [place] % 8.3 % ()?? 03/06/2023 11:04 Eos % 0.6 % ()?? 03/06/2023 11:04 Baso % 0.5 % ()?? 03/06/2023 11:04 Imm Gran 0.5 % ()?? 03/06/2023 11:04 Abs. Imm Gran 0.1 k/mm3 ()?? 03/06/2023 11:04 ?? CHEM GENERAL Sodium 140 mmol/L ()?? 03/09/2023 00:25 Potassium 3.9 mmol/L ()?? 03/09/2023 00:25 Chloride 103 mmol/L ()?? 03/09/2023 00:25 Bicarbonate Level 26 mmol/L ()?? 03/09/2023 00:25 Anion Gap 11 ()?? 03/09/2023 00:25 Glucose Level 84 mg/dL ()?? 03/09/2023 00:25 BUN 14 mg/dL ()?? 03/09/2023 00:25 Creatinine-Blood 0.9 mg/dL ()?? 03/09/2023 00:25 Estimated GFR Creatinine 84 ML/MIN/1.73 M2 ()?? 03/09/2023 00:25 Calcium 9.1 mg/dL ()?? 03/09/2023 00:25 Vitamin B12 Level 771 pg/mL ()?? 03/09/2023 00:25 Folic Acid Level 23.4 ng/mL ()?? 03/09/2023 00:25 C-Reactive Protein <0.3 mg/dL ()?? 03/09/2023 00:25 ? HEME OTHER Sed Rate 5 mm/hr ()?? 03/09/2023 00:25 ? UA/URINALYSIS Appear/Color, Urine LIGHT YELLOW ()?? 03/06/2023 16:20 Specific [place], Urine 1.019 ()?? 03/06/2023 16:20 pH, Urine 6.0 ()?? 03/06/2023 16:20 Albumin, Urine NEGATIVE ()?? 03/06/2023 16:20 Glucose, Urine NEGATIVE ()?? 03/06/2023 16:20 Ketones, Urine NEGATIVE ()?? 03/06/2023 16:20 Bilirubin, Urine NEGATIVE ()?? 03/06/2023 16:20 Hemoglobin, Urine NEGATIVE ()?? 03/06/2023 16:20 Nitrite, Urine NEGATIVE ()?? 03/06/2023 16:20 Leukocyte, Urine NEGATIVE ()?? 03/06/2023 16:20 Urobilinogen NORMAL mg/dL ()?? 03/06/2023 16:20 WBC's, Urine 1 /HPF ()?? 03/06/2023 16:20 RBC's, Urine 2 /HPF ()?? 03/06/2023 16:20 Bacteria SLIGHT HPF (Abnormal)?? 03/06/2023 16:20 Squamous Epith 2 /HPF ()?? 03/06/2023 16:20 Mucus SLIGHT /LPF ()?? 03/06/2023 16:20 Hold Urine Culture Testing available 48 hours from time of collection. ()?? 03/06/2023 16:20 ? URINE OTHER Est Creatinine Clearance 77.37 mL/min ()?? 03/09/2023 01:51 ? VIROLOGY COVID-19 by RT-PCR NEGATIVE ()?? 03/06/2023 15:09 ? Microbiology ?? COVID-19 (Novel Coronavirus), Rapid PCR?? Completed?? Source: Nasal Body Site: Nose Collected Dt/Tm: 03/06/2023 15:02 Last Updated Dt/Tm: 03/06/2023 16:50 ? 30??minutes spent on discharge * Tabitha Nick MD: PERFORM Event Display: Discharge/Transfer Note Hospital Authored Date: Patient was not discharged today. This discharge summary note will be used as a progress note. * Lillian Lee MD P: PERFORM Event Display: Discharge/Transfer Note Hospital Authored Date: [id number] Attending Attestation: I have seen and evaluated this patient on 03/15/23. I have discussed the caseand its management with the resident and agree with the findings and plan as documented in the resident???s note except where modified. ?? Lillian Lee MD MPH Internal Medicine/Pediatric Hospitalist Pager: [phone] ? * Zaina Parrish RN: VERIFY, PERFORM, SIGN Event Display: Case Management Discharge Plan Authored Date: [id number] Patient: JO ANN LEDESMA Age: 42 years Sex: Female : 1980 Associated Diagnoses: None Author: Zaina Parrish RN Discharge Plan Case Management Discharge Plan : Case Management Discharge Plan Data 03/13/2023 9:57 EDT Discharge Level of Care at Discharge Homehealth/VNA Discharge VNA/Hospice/Home Care [facility] [phone] Name of Agency #1 [facility] Categories #1 Physical Therapy, Retirement Service Start Date and Time #1 03/13/2023 15:00 Service Comments #1 The above agency will be providing visiting home services. They should contact you within 24 ??? 48 hours of returning home. If they do not, please contact the company at the above number. Patient Care team information Care Team Personnel Name: Chitra Gomez RN Position: [facility] RN Member Role: Primary Care Nurse Name: Geni Davis RN Position: [facility] RN Member Role: Primary Care Nurse Name: Gertrudis Mandujano RN Position: [facility] RN Member Role: Primary Care Nurse Name: Germán Robins Jr, RN Position: [facility] RN Member Role: Primary Care Nurse Name: Todd Rice NP Position: Reference Physician Member Role: PCP Address: Address: [address] [place] [id number] Name: Harmony Tapia RN Position: [facility] RN Member Role: Primary Care Nurse Name: Lauryn Cavazos RN Position: [facility] RN Member Role: Primary Care Nurse Name: Shaka Dempsey DO Position: [facility] Resident Member Role: Resident Address: Address: [address] [place] [address] Adult [place], [place] [address] Name: Jaz Black Position: [facility] ED LUCI OLVERA Name: Aniyah Vanegas RN Position: [facility] ED RN W/OE and Tasks Member Role: Patient Care Provider Name: Huber Escalona Position: [facility] ED OA Charge Member Role: ED Associate Name: Jhonny Armijo MD Position: [facility] Resident Address: Address: [address] [place] [address] Emergency Medicine [place], [place] [address] Care Team Related Persons Name: AMALIA LEDESMA Address: [place], [place] Name: AMPARO LEDESMA Address: home [address] [place] [address] Name: JAN DUNCAN Address: home [address] [place] [address] Name: CHELLE GIL Address: home [address] [place] [address]
--- OUTSIDE RECORDS SUMMARY | 2024-06-29 06:38 | XMS_ITS | Continuity of Care Document ---
Author Organization [facility] ter Address [address] [place] [id number]- Care Team Providers Care Kettle Cleaner Name Role Phone Dwayne MOE, Todd Leyva Primary Care Physician Encounter [facility] [place] Date(s): 12/14/21 - 12/16/[address] [address]- Encounter Diagnosis Vomiting(Final) - 12/15/21 Discharge Disposition: A-D/C Home Attending Physician: Elaine Dior MD Admitting Physician: Dixon aRy MD Referring Physician: Not on Staff, Referring [...] 1 tablet = 10 mg, By Mouth, Daily, Maintenance, 12/14/21 13:34:00 EDT, Partial fill upon patient request if the prescription is for a schedule II opioid drug. Start Date: 12/14/21 Status: Ordered cetirizine 10 mg oral tablet 1 tablet = 10 mg, By Mouth, Daily, Maintenance, 12/14/21 13:37:00 EDT, Tablet, Partial fill upon patient request if the prescription is for a schedule II opioid drug. Start Date: 12/14/21 Status: Ordered cyclobenzaprine 10 mg oral tablet 10 mg, Tablet, By Mouth, 12/16/21 9:00:00 EDT Start Date: 12/16/21 Stop Date: 12/16/21 Status: Completed docusate sodium 100 mg oral capsule 1 [...] opioid drug. Start Date: 12/14/21 Status: Ordered LORazepam 1 mg oral tablet 1 tablet = 1 mg, By Mouth, Daily, PRN as needed for anxiety, Maintenance, 12/14/21 13:39:00 EDT, Tablet, Partial fill upon patient request if the prescription is for a schedule II opioid drug. Start Date: 12/14/21 Status: Ordered nystatin topical [id number] u/gm powder 1 application, Topically, 2 times a day, PRN, Maintenance, 12/14/21 13:40:00 EDT, Powder, Partial fill upon patient request if the prescription is for a schedule II opioid drug. Start Date: 12/14/21 Status: Ordered ondansetron 8 mg oral tablet, disintegrating 1 tablet = 8 mg, By Mouth, Every 8 hours, PRN Nausea & Vomiting, Maintenance, 12/14/21 13:35:00EDT, Tablet, Partial fill upon patient request if the prescription is for a schedule II opioid drug. Start Date: 12/14/21 Status: Ordered pantoprazole 40 mg oral delayed release tablet 1 tablet = 40 mg, By Mouth, Daily, # 14 tablet, 0 Refills, Maintenance, 12/16/21 8:01:00 EDT, EC Tablet, 170, cm, 12/16/21 6:49:00 EDT, Height, 105, kg, 12/14/21 14:12:00 EDT, Dry Weight Start Date: 12/16/21 Stop Date: 12/30/21 Status: Ordered senna 187 mg oral tablet [...] Date: 12/14/21 Status: Ordered Problem List Condition Effective Dates Status Health Status Inform ant Anxiety(Confirmed) Active Chronic low back pain(Confirmed) Active Depression(Confirmed) Active GERD (gastroesophageal reflu x disease)(Confirmed) Active Stress incontinence(Confirmed) Active Morbid obesity(Confirmed) Active Obese class II(Confirmed) Active Vital Signs Most recent to oldest [Reference Range]: 1 2 3 Height 170 cm (12/16/21 6:49 AM) 170 cm (12/16/21 3:03 AM) 170 cm (12/15/21 11:40 PM) Weight 104.6 kg (12/14/21 5:04 PM) 105 kg (12/14/21 2:12 PM) 105 kg (12/14/21 11:06 AM) Oxygen Saturation [94-100 %] 100 % (12/16/21 6:49 AM) 100 % (12/16/21 3:03 AM) 98 % (12/15/21 11:40 PM) Pulse Rate [55-90 bpm] 55 bpm (12/16/21 6:49 AM) 53 bpm *L* (12/16/21 3:03 AM) 58 bpm (12/15/21 11:40 PM) Body Mass Index [18.5-24.99] 36.33 *>HHI* (12/14/21 2:12 PM) Blood Pressure [90-138/55-84 mm Hg] 127/81mm Hg (12/16/21 6:49 AM) 131/76mm Hg (12/16/21 3:03 AM) 117/60mm Hg (12/15/21 11:40 PM) Respiratory Rate [16-30 br/min] 20 br/min (12/16/21 9:12 AM) 20 br/min (12/16/21 7:37 AM) 20 br/min (12/16/21 6:49 AM) Temperature [96.8-100.4 DegF] 97.7 DegF (12/16/21 6:49 AM) 97.3 DegF (12/16/21 3:03 AM) 98.4 DegF (12/15/21 11:40 PM) Mode of Delivery (Oxygen) Room air (12/16/21 6:49 AM) Room air (12/16/21 3:03 AM) Room air (12/15/21 11:40 PM) Blood pressure sites Arm, left (12/16/21 6:49 AM) Arm, right (12/16/21 3:03 AM) Arm, left (12/15/21 11:40 PM) Temperature Route Oral (12/16/21 6:49 AM) Oral (12/16/21 3:03 AM) Oral (12/15/21 11:40 PM) Dry Weight 105 kg (12/14/21 2:12 PM) 105 kg (12/14/21 11:06 AM) Weight Obtained Via Bed scale (12/14/21 5:04 PM) Social History Social History Type Response Smoking Status 10 or more cigarette s (1/2 pack or more)/day in last 30 days entered on: 12/14/21 Sex
--- OUTSIDE RECORDS SUMMARY | 2024-06-29 06:38 | XMS_ITS | Continuity of Care Document ---
Author Organization [facility] ter Address [address] [place] [id number] Care Team Providers Care Nutrition Worker Name Role Phone Dwayne MOE, Todd Leyva Primary Care Physician [place] [facility] [place] 10[place]12/23 - 10/14/[address] [id number] Encounter Diagnosis Mechanical back pain(Final) - 10/12/23 Discharge Disposition: A-D/C Home Attending Physician: Jony LLOYD, Reddy Holland Admitting Physician: Khloe Mallory MD Referring Physician: Not on Staff, Referring MD Allergies, Adverse Reactions, Alerts Substance Reaction Severity Status gabapentin 1 Persistent Mild Active aloe vera topical Active Reglan Active Lyrica 2 Persistent Mild Active 1mucsle spasms 2muscle spasms Immunizations Given and Recorded Vaccine Date Status Refusal Reason SARS-CoV-2 (COVID-19) mRNA BNT-162b2 vac 01/02/21 Given SARS-CoV-2 (COVID-19) mRNA BNT-162b2 vac 12/12/20 Given Medications acetaminophen 500 mg oral capsule 2 capsule = 1,000 mg, By Mouth, 3 times a day, PRN for fever, tablet ok too, # 30 capsule, 0 Refills, Maintenance, 10/14/23 11:12:00 EST, Capsule, [facility], Partial fill upon patient request if the prescription is for a schedule II opi... Start Date: 10/14/23 Status: Ordered Ativan 1 mg oral tablet 1 tablet = 1 mg, By Mouth, 2 times a day, PRN as needed for anxiety, # 30 tablet, 0 Refills, Acute 08/11/24 12:00:00 EST, 04/16/23 16:39:00 EDT, Tablet, Partial fill upon patient request if the prescription is for a schedule II opioid drug. Start Date: 04/16/23 Stop Date: 08/11/24 Status: Ordered atorvastatin 10 mg oral tablet [...] opioid drug. Start Date: 02/25/22 Status: Ordered cyclobenzaprine 5 mg oral tablet 1 tablet = 5 mg, By Mouth, 3 times a day, # 30 tablet, 0 Refills, Maintenance, 10/14/23 11:13:00 EST, Tablet, [facility], Partial fill upon patient request if the prescription is for a schedule II opioid drug., 170, cm, 10/13/23 14:37:00... Start Date: 10/14/23 Status: Ordered Dilaudid 4 mg oral tablet 4 mg, Tablet, By Mouth, Every 4 hours, PRN for Pain , Severe, Routine, 10/13/23 12:33:00 EST Start Date: 10/13/23 Stop Date: 10/14/23 Status: Discontinued docusate sodium 100 mg oral capsule 1 capsule = 100 mg, By Mouth, Daily, PRN as needed for constipation, 0 Refills, Maintenance, 12/13/14 15:08:05 EDT, Capsule Start Date: 12/13/14 Status: Ordered escitalopram 10 mg oral tablet = 20 mg, By Mouth, Daily, 0 Refills, Maintenance, 10/14/23 11:14:00 EST, Tablet, Partial fill upon patient request if the prescription is for a schedule II opioid drug. Start Date: 10/14/23 Status: Ordered folic acid 1 mg oral tablet 1 mg, 1, tablet, By Mouth, Daily, Maintenance, 12/14/21 13:38:00 EDT, Partial fill upon patient request if the prescription is for a schedule II opioid drug. Start Date: 12/14/21 Status: Ordered KlonoPIN 1 mg oral tablet 1 tablet = 1 mg, By Mouth, Daily at bedtime, 0 Refills, Maintenance, 06/02/23 8:14:00 EDT, Partial fill upon patient request if the prescription is for a schedule II opioid drug. Start Date: 06/02/23 Status: Ordered lidocaine 5% topical film See Instructions, 1 pathc Topically Daily, # 30 patch, 0 Refills, Maintenance, 10/14/23 11:15:00 EST, Patch, [facility], Partial fill upon patient request if the prescription is for a schedule II opioid drug., 1 pathc Topically Daily, 17... Start Date: 10/14/23 Status: Ordered Lupron Depot 3.75 mg intramuscular kit = 3.75 mg, Intramuscular, Every 28 days, 0 Refills, Maintenance, 02/25/22 12:11:00 EDT, Partial fill upon patient request if the prescription is for a schedule II opioid drug. Start Date: 02/25/22 Status: Ordered ondansetron 4 mg oral tablet 2 tablet = 8 mg, By Mouth, Every 28 days, PRN Nausea & Vomiting, Q8H, taken with vitB12 inj, 0 Refills, Maintenance, 04/16/23 12:12:00 EDT, Partial fill upon patient request if the prescription is for a schedule II opioid drug. Start Date: 04/16/23 Stop Date: 04/23/23 Status: Ordered oxyCODONE 5 mg oral capsule 1 capsule = 5 mg, By Mouth, Every 4 hours, PRN as needed for pain, # 18 capsule, 0 Refills, Maintenance, 10/14/23 11:43:00 EST, Capsule, [facility], Partial fill upon patient request ifthe prescription is for a schedule II opioid drug.,... Start Date: 10/14/23 Status: Ordered predniSONE 50 mg oral tablet 1 tablet = 50 mg, By Mouth, Daily, for 3 days, # 3 tablet, 0 Refills, Acute 10/17/23 11:14:00 EST, 10/14/23 11:14:00 EST, Tablet, [facility], Partial fill upon patient request if the prescription is for a schedule II opioid drug., 170, c... Start Date: 10/14/23 Stop Date: 10/17/23 Status: Ordered scopolamine 1 mg/72 hr transdermal film, extended release 1 patch, Topically, Every 28 days, PRN Nausea, apply to skin; taken with VitB12 injection, 0 Refills, Maintenance, 04/16/23 12:06:00 EDT, Partial fill upon patient request if the prescription is for a schedule II opioid drug. Start Date: 04/16/23 Stop Date: 04/23/23 Status: Ordered senna 187 mg oral tablet [...] incontinence Confirmed Active Morbid obesity Confirmed Active Severe obesity (BMI 35.0-39.9) with comorbidity Confirmed Active Results Radiology Reports * Exam Date Time Procedure Performing Provider Status 10/12/23 11:15 AM MRI Lumbar Spine W+W/O Contrast Kassidy Anderson; Auth (Verified) Notes: (MRI Lumbar Spine W+W/O Contrast) Reason For Exam: per Dr. Martinez neurology;Back Pain RESULT: MRI Lumbar Spine W+W/O Contrast MRI Lumbar Spine W+W/O Contrast INDICATION: Hx of Present Illness: increasing back pain and numbness of R buttock down to toes.; Reason: Back Pain; per Dr. Martinez neurology; Clinical Question(s): Disc Space Infection; Order Comment:Please see Reference Text for complete list of contraindications Disc Space Infection TECHNIQUE: 20 mL of Clariscan was administered intravenously. COMPARISON: MRI 03/26/2023 FINDINGS: NUMBERING: The study assumes 5 cvs-eud-laczffh lumbar type vertebral bodies. No marrow or disc space abnormality is noted due to suggest infection. No abnormal contrast enhancement is noted. No extra-axial collection is demonstrated in the spinal canal. No paravertebral edemais noted. The conus medullaris terminates at the L1 level and is normal. The lower thoracic cord is normal. Disc desiccation and a small central disc protrusion are present at L2-3. No stenosis or nerve rootcompression is produced. Disc desiccation and a small right paramedian and subarticular and inferior disc extrusion are present at L3-4. Mild disc space narrowing and a 3 mm retrolisthesis are present. There is minimal mass effect on the right L4 nerve root. No significant central or foraminal stenosis is produced. Disc desiccation, annular bulging and an enhancing posterior annular tear are present at L4-5. Minimal facet arthropathy is present. No central or foraminal stenosis is noted. Disc desiccation and mild disc space narrowing is present at L5-S1. Small anterior osteophytes are noted. A 3 mm retrolisthesis is present. A small central disc extrusion is noted but there is no mass effect on either S1 nerve root and no central or foraminal stenosis is evident. There is been no significant change from the study of 03/26/2023. IMPRESSION: 1. No evidence of osteomyelitis, discitis or epidural collection. No cauda equina compression is present. 2. Findings of degenerative disc disease from L2 through S1. There is mild mass effect on the rightL4 nerve root related to a disc extrusion at L3-4. No focal nerve root compression is demonstrated elsewhere. The appearance is unchanged from 03/26/2023. WSN: [id number] Ordering Physician: Milvia Perdomo Dictated By: Sharan Strauss MD Dictated Date/Time: 10/12/23 11:28 a Reviewed By: Sharan Strauss MD Signed By: Sharan Strauss MD Signed Date/Time: 10/12/23 11:28 am Transcribed By: DEYSI Transcribed Date/Time: 10/12/23 11:22 am Vital Signs Most recent to oldest [Reference Range]: 1 2 3 Height 170 cm (10/13/23 2:37 PM) 170 cm (10/12/23 9:31 PM) 170 cm (10/12/23 4:40 PM) Weight 102 kg (10/12/23 4:18 PM) 102 kg (10/12/23 2:00 PM) 102 kg (10/12/23 7:14 AM) Oxygen Saturation [94-100 %] 97 % (10/14/23 5:00 AM) 96 % (10/13/23 9:00 PM) 98 % (10/13/23 2:37 PM) Pulse Rate [55-90 bpm] 76 bpm (10/14/23 5:00 AM) 64 bpm (10/13/23 9:00 PM) 86 bpm (10/13/23 2:37 PM) Body Mass Index [18.5-24.99 kg/m2] 35.29 kg/m2 *>HHI* (10/12/23 4:18 PM) 35.29 kg/m2 *>HHI* (10/12/23 7:14 AM) Blood Pressure [90-138/55-84 mm Hg] 126/88mm Hg (10/14/23 5:00 AM) 132/72mm Hg (10/13/23 9:00 PM) 152/78mm Hg *H* (10/13/23 2:37 PM) Respiratory Rate [16-30 br/min] 18 br/min (10/14/23 11:54 AM) 18 br/min (10/14/23 11:46 AM) 18 br/min (10/14/23 10:41 AM) Temperature [96.8-100.4 DegF] 97.6 DegF (10/14/23 5:00 AM) 98.2 DegF (10/13/23 9:00 PM) 98.0 DegF (10/13/23 2:37 PM) Mode of Delivery (Oxygen) Room air (10/14/23 5:00 AM) Room air (10/13/23 9:00 PM) Room air (10/13/23 2:37 PM) Blood pressure sites Arm, right (10/14/23 5:00 AM) Arm, right (10/13/23 9:00 PM) Arm, right (10/13/23 2:37 PM) Temperature Route Oral (10/14/23 5:00 AM) Oral (10/13/23 9:00 PM) Oral (10/13/23 2:37 PM) Dry Weight 102 kg (10/12/23 4:18 PM) 102 kg (10/12/23 7:14 AM) Weight Obtained Via Patient/family state d (10/12/23 7:14 AM) Dry Weight Obtained Via Patient/family s tated (10/12/23 7:14 AM) Social History Social History Type Response Smoking Status 10 or more cigarette s (1/2 pack or more)/day in last 30 days entered on: 12/14/21 Sex History and physical note * Reyna LLOYD, Elaine Solano: PERFORM, MODIFY, MODIFY, MODIFY Event Display: History and Physical Hospital Authored Date: [id number] Patient: ??JO ANN LEDESMA ? Age:??43 Years?Sex:??Female?:??1980?? History of Present Illness 10/12 ?? 43-year-old female with PMH including low back pain, sacroiliitis, HLD, GERD, obesity, B12 deficiency on monthly injection, iron deficiency anemia, diverticulitis s/p partial colectomy with colostomybag s/p reversal, abdominal hernia repair, ovarian cyst, ??anxiety, depression, bipolar.?? Patient presented to ER with low back pain. ?? Patient says that she has acute exacerbation of her low back pain/sacroiliitis. The lower back and slightly on the right side, severe, sometimes it radiates downwards from the back of the thigh up to the knees.?? Worse with any movement.?? No relieving factors.?? No preceding trauma.?? No history of IV drug abuse.?? She saw her PCP who prescribed prednisone which she was taking.?? Initially over the first 2 days the pain improved but then it got worse and she developed numbness over the whole right lower extremity.?? She also mentions that her inner thigh/area around the genitals feels numb as well.?? She has baseline stress incontinence which seems to have got worse as well.?? She also have some weakness of the right lower extremity.?? Due to both weakness and pain she is unable to ambulate.?? Denies any fever.?? Has been vomiting, attributes to pain medication.? Patient states that she had a similar pain requiring admissions twice last in February 2023.?? The timeshe received pain medication, SI joint steroid injection, and was sent to rehab.?? It seems she wasdiagnosed with sacroiliitis and she says that she is scheduled for SI joint fusion at [facility] next month. ?? In ER patient is hemodynamically stable.?? Labs mostly unremarkable, has leukocytosis 14.7, mild hypokalemia. ?? MRI lumbar spine: IMPRESSION: 1. No evidence of osteomyelitis, discitis or epidural collection. No cauda equina compression is present. 2. Findings of degenerative disc disease from L2 through S1. There is mild mass effect on the rightL4 nerve root related to a disc extrusion at L3-4. No focal nerve root compression is demonstrated elsewhere. The appearance is unchanged from 03/26/2023. ?? Patient was given pain medication and steroid and was placed for further observation. Review of Systems All systems reviewed and negative except as in HPI. Objective Measurements?? Height: 170 cm (10/12/23) Weight: 102 kg (10/12/23) Dry Weight: 102 kg (10/12/23) Body Mass Index:??35.29 kg/m2??Critical (10/12/23) ? Vital Signs?? Temperature: 97.8 DegF (10/12/23 21:31:00) Temperature Route: Oral (10/12/23:31:00) Pulse Rate: 60 bpm (10/12/23 21:31:00) Respiratory Rate: 16 br/min (10/12/23 21:31:00) Systolic Blood Pressure: 127 mm Hg (10/12/23 21:31:00) Diastolic Blood Pressure: 78 mm Hg (10/12/23 21:31:00) Blood pressure sites: Arm, right (10/12/23 21:31:00) Mean Arterial Pressure: 94 mm Hg (10/12/23 21:31:00) Pulse Pressure: 49 mm Hg (10/12/23 21:31:00) Oxygen Saturation: 95 % (10/12/23 21:31:00) Mode of Delivery (Oxygen): Room air (10/12/23 21:31:00) Early Warning Score: 4 (10/12/23 21:31:55) ? Physical Exam Constitutional: ??Alert,??no acute distress, co-operative, lying on the bed, saturating well on room air.?? Obesity.?? Mental state: Oriented x 3. Head: ??Normocephalic, atraumatic. ?? Eye:?No discharge. ENT: No discharge. Neck: ??Supple,??no JVD. Cardiovascular: ??S1, S2. Regular rhythm. No MRG. Respiratory: ??Lungs are clear to auscultation b/l, No RRR. ?? Gastrointestinal: ??Soft, Nontender, Non distended, ??Normal bowel sounds.?? Genitourinary: No costovertebral angle tenderness. Neurological: RLE: Difficult assessment, seems weaker than left side, but unclear if lack of effortdue to pain. Subjective numbness on RLE. Other limbs/cranial nerve nonfocal.?? Back:?? Tender over left SI.?? Musculoskeletal: ??SLR positive on right side.?? No edema Hematology: No lymphadenopathy Skin: ??Warm, dry. Psychiatric: ??Cooperative.?? Assessment/Plan Diagnoses Hypokalemia ??(E87.6) Mechanical back pain ??(M54.9) Sacroiliac pain ??(M53.3) Sacroiliitis ??(M46.1) ?? Assessment:??43-year-old female with PMH including low back pain, sacroiliitis, HLD, GERD, obesity,B12 deficiency on monthly injection, iron deficiency anemia, diverticulitis s/p partial colectomy with colostomy bag s/p reversal, abdominal hernia repair, ovarian cyst, ??anxiety, depression, bipolar.?? Patient presented to ER with low back pain. ?? Sacroiliac pain (M53.3):??. Sacroiliitis (M46.1):?? Right LE numbness / weakness, ?radiculopathy/neuropathy: ?? Patient presents with right-sided??low back pain.?? There is tenderness over the??right SI joint.?? Patient does??carry a diagnosis of sacroiliitis, seems to be acute exacerbation. Patient however also complains of??right lower extremity weakness, numbness,??numbness involving the??area around the genital/saddle anesthesia,??worsening??urinary??incontinence.?? This is concerning regarding??cord compression/cauda equina syndrome, however MRI??does not show any cord compression/cauda equina syndrome.?? Possible neuropathy/radiculopathy. MRI does show??mild mass effect on the right L4 nerve root related to a disc extrusion at L3-4, this is similar to prev imaging.??Notably inflammatory?? markers are low. ?? We will control pain with??scheduled Tylenol,??ibuprofen,??oxycodone. As needed??Dilaudid??for severe pain. Continue??steroid,??may change to oral. May need??steroid injection in the SI. Will consult??PM&R. ? Hypokalemia (E87.6):??. Potassium supplement has been given. Monitor potassium and magnesium level. ?? HLD: Continue atorvastatin. Anxiety/depression/bipolar:??Continue Lexapro,??trazodone.?? Ativan as needed. Cont topamax. ?? VTE Prophylaxis:??enoxaparin ?VTE Prophylaxis Assessment:??VTE Prophylaxis Ordered ?? Code Status:??full code ?Order Code Status:??Code Status Ordered ?? Discharge Planning:? Histories Allergies Allergies ?(Active and Proposed Allergies Only) Lyrica? (Severity: Persistent Mild, Onset: Unknown) ?Comments: muscle spasms gabapentin? (Severity: Persistent Mild, Onset: Unknown) ?Comments: mucsle spasms aloe vera topical? (Severity: Unknown severity, Onset: Unknown) Reglan? (Severity: Unknown severity, Onset: Unknown) ? Past Medical History/Problem List Active Problems??(7) Anxiety Chronic low back pain Depression GERD (gastroesophageal reflux disease) Morbid obesity Severe obesity (BMI 35.0-39.9) with comorbidity Stress incontinence ? Past Surgical History No [...] 10 mg oral tablet)?1?tab(s)?10?Milligram?By Mouth?Daily at bedtime Clonazepam (KlonoPIN 1 mg oral tablet)?1?tab(s)?1?Milligram?By Mouth?Daily at bedtime Cyanocobalamin (cyanocobalamin 1000 mcg/ml injectable solution)?1,000?Microgram?Intramuscular?Every 28 days Cyclobenzaprine (cyclobenzaprine 5 mg oral tablet)?5?Milligram?By Mouth?3 times a day Docusate (docusate sodium 100 mg oral capsule)?1?capsule?100?Milligram?By Mouth?Daily?as needed?as needed for constipation Folic Acid (folic acid 1 mg oral tablet)?1?Milligram?1?tablet?By Mouth?Daily Ibuprofen (ibuprofen 800 mg oral tablet)?800?Milligram?By Mouth?Every 8 hours Leuprolide (Lupron Depot 3.75 mg intramuscular kit)?3.75?Milligram?Intramuscular?Every 28 days Lorazepam (Ativan 1 mg oral tablet)?1?tab(s)?1?Milligram?By Mouth?2 times a day?as needed?as needed for anxiety Nystatin Topical (nystatin topical 997964 u/gm powder)?1?ranjan?Topically?2 times a day?PRN Ondansetron (ondansetron 4 mg oral tablet)?2?tab(s)?8?Milligram?By Mouth?Every 28days?as needed?Nausea & Vomiting?for 7?Days?Q8H, taken with vitB12 inj Scopolamine (scopolamine 1 mg/72 hr transdermal film, extended release)?1?patch(es)?Topically?Every 28 days?as needed?Nausea?for 7?Days?apply to skin; taken with VitB12 injection Senna (senna 187 mg oral tablet)?1?tab(s)?8.6?Milligram?By Mouth?Daily?as needed?as needed for constipation Topiramate (topiramate 100 mg oral tablet)?3 tablets?By Mouth?Daily at bedtime Trazodone (traZODone 100 mg oral tablet)?2 tablets?By Mouth?Daily at bedtime ? Inpatient Medications Medications (20) Active SCHEDULED: (11) Acetaminophen 325 mg Tablet (Tylenol 325 mg oral tablet) ??650 mg, By Mouth, Every 6 hours Atorvastatin 10 mg Tablet (atorvastatin 10 mg oral tablet) ??10 mg, By Mouth, Daily at bedtime Enoxaparin 40 mg Inj (Enoxaparin Inj) ??40 mg 0.4 mL, Subcutaneous Injection, Daily Escitalopram 10 mg Tablet (escitalopram 10 mg oral tablet) ??20 mg, By Mouth, Daily Folic Acid 1 mg Tablet (folic acid 1 mg oral tablet) ??1 mg, By Mouth, Daily Ibuprofen 800 mg Tablet (ibuprofen 800 mg oral tablet) ??800 mg, By Mouth, Every 8 hours MethylPREDNISolone Sodium Succinate 125 mg Inj (SoluMedrol Inj) ??125 mg, IV Push Slowly, Daily NaCl 0.9% Flush 3ml (NaCL 0.9% Flush) ??3 mL, IV Push, Every 8 hours OxyCODONE 5 mg IR Tablet (oxyCODONE 5 mg oral tablet) ??5 mg, By Mouth, Every 6 hours Topiramate 100 mg Tablet (Topiramate Tablet) ??300 mg, By Mouth, Daily at bedtime Trazodone 50 mg Tablet (traZODone 50 mg oral tablet) ??200 mg, By Mouth, Daily at bedtime CONTINUOUS: (0) PRN: (9) Dextromethorphan-Guaifenesin 20 mg-200 mg/10 mL Liqu UD (Robitussin DM Liquid) ??10 mL, By Mouth, Every 4 hours Docusate Sodium 100 mg Capsule (Docusate Sodium Capsule) ??100 mg 1 capsule, By Mouth, 2 times a day HYDROmorphone 0.5 mg/0.5 mL Inj Syringe (Dilaudid Inj) ??0.5 mg 0.5 mL, IV Push Slowly, Every 4 hours Lorazepam 1 mg Tablet (Ativan 1 mg oral tablet) ??1 mg, By Mouth, 2 times a day Melatonin 3 mg Tablet (Melatonin Tablet) ??3 mg, By Mouth, Daily at bedtime NaCl 0.9% Flush 3ml (NaCL 0.9% Flush) ??3 mL, IV Push, Every 8 hours Polyethylene Glycol 17 Gm Powder (MiraLax Powder) ??17 Gm 1 pack/packet, By Mouth, Daily Senna Tablet ??8.6 mg 1 tablet, By Mouth, 2 times a day Simethicone 80 mg Chewable Tablet (Simethicone Tablet) ??80 mg, Chew, 3 times a day ? Results Recent Labs BLOOD COUNT & DIFF WBC 14.7 k/mm3 (High)?? 10/12/2023 08:48 RBC 4.61 m/mm3 ()?? 10/12/2023 08:48 Hgb 13.9 Gm/dL ()?? 10/12/2023 08:48 Hct 41.4 % ()?? 10/12/2023 08:48 MCV 89.8 femtoliters ()?? 10/12/2023 08:48 MCH 30.2 pg ()?? 10/12/2023 08:48 MCHC 33.6 g/dL ()?? 10/12/2023 08:48 Platelet Count 313 k/mm3 ()?? 10/12/2023 08:48 RDW-SD 43.4 femtoliters ()?? 10/12/2023 08:48 MPV 10.1 femtoliters ()?? 10/12/2023 08:48 Nucleated RBC (Automated) 0.0 #/100 WBC'S ()?? 10/12/2023 08:48 Abs. NRBC 0.0 k/mm3 ()?? 10/12/2023 08:48 Abs. Neut 9.3 k/mm3 (High)?? 10/12/2023 08:48 Abs. Lymph 4.4 k/mm3 (High)?? 10/12/2023 08:48 Abs. [place] 0.9 k/mm3 ()?? 10/12/2023 08:48 Abs. Eo 0.0 k/mm3 ()?? 10/12/2023 08:48 Abs. Baso 0.0 k/mm3 ()?? 10/12/2023 08:48 Neut % 63.7 % ()?? 10/12/2023 08:48 Lymph % 29.2 % ()?? 10/12/2023 08:48 [place] % 6.2 % ()?? 10/12/2023 08:48 Eos % 0.0 % ()?? 10/12/2023 08:48 Baso % 0.0 % ()?? 10/12/2023 08:48 Atypical Lymph % 0.9 % ()?? 10/12/2023 08:48 Platelet Estimate ADEQUATE ()?? 10/12/2023 08:48 ?? CHEM GENERAL Sodium 142 mmol/L ()?? 10/12/2023 08:48 Potassium 3.4 mmol/L (Low)?? 10/12/2023 08:48 Chloride 107 mmol/L ()?? 10/12/2023 08:48 Bicarbonate Level 21 mmol/L (Low)?? 10/12/2023 08:48 Anion Gap 14 ()?? 10/12/2023 08:48 Glucose Level 81 mg/dL ()?? 10/12/2023 08:48 BUN 15 mg/dL ()?? 10/12/2023 08:48 Creatinine-Blood 0.7 mg/dL ()?? 10/12/2023 08:48 Estimated GFR Creatinine 107 ML/MIN/1.73 M2 ()?? 10/12/2023 08:48 Calcium 9.4 mg/dL ()?? 10/12/2023 08:48 C-Reactive Protein <0.3 mg/dL ()?? 10/12/2023 08:48 ?? ENDOCRINE/TUMOR MARKER BHCG (HCG & Beta) <1 mIU/mL ()?? 10/12/2023 08:48 ?? HEME OTHER Sed Rate 6 mm/hr ()?? 10/12/2023 08:48 ?? URINE OTHER Est Creatinine Clearance 98.43 mL/min ()?? 10/12/2023 10:21 ? Hospital Progress note * Bernadine Fiore LPN: PERFORM, SIGN, VERIFY Event Display: Progress Note Hospital Authored Date: Patient: JO ANN LEDESMA Age: 43 years Sex: Female : 1980 Associated Diagnoses: None Author: Bernadine Fiore LPN Findings Problem Related to Alteration in Comfort : Alteration in Comfort/new 10/14/2023 12:00 EST Alteration in Comfort Related to Other: pain control Goals & Outcomes: Comfort Pt will report acceptable level of comfort & pain control, Pt will state importance of adhering to pain strategy regime, Pt will demonstrate necessary skills to manage pain, Non-verbal indicators will indicate comfort/pain control Interventions Implemented: Comfort Assess pain using appropriate pain scale/tools, Assess aggravating factors & prevent them accordingly, Assess alleviating factors & promote them accordingly BH Goals/Interventions, Comfort Yes Comfort, Problem Start 10/12/2023 18:46 Reviewed plan with, Comfort Patient Patient Progression, Comfort Resolved problem Comfort, Problem Ongoing No Comfort, Problem Resolved 10/14/2023 12:05 . Discharge Information Case Management Discharge Plan : Case Management Discharge Plan Data 10/14/2023 11:54 EST Discharge Level of Care at Discharge Home/Detention/Foster Care * Jackie Mcclellan RN: PERFORM, SIGN, VERIFY Event Display: Progress Note Hospital Authored Date: Patient: JO ANN LEDESMA Age: 43 years Sex: Female : 1980 Associated Diagnoses: None Author: Jackie Mcclellan RN Findings Problem Related to Alteration in Comfort : Alteration in Comfort/new 10/14/2023 5:00 EST Alteration in Comfort Related to Other: pain control Goals & Outcomes: Comfort Pt will report acceptable level of comfort & pain control, Pt will state importance of adhering to pain strategy regime, Pt will demonstrate necessary skills to manage pain, Non-verbal indicators will indicate comfort/pain control Interventions Implemented: Comfort Assess pain using appropriate pain scale/tools, Assess aggravating factors & prevent them accordingly, Assess alleviating factors & promote them accordingly BH Goals/Interventions, Comfort Yes Comfort, Problem Start 10/12/2023 18:46 Reviewed plan with, Comfort Patient Patient Progression, Comfort Pt progressing according to plan Comfort, Problem Ongoing Yes . Evaluation See biophysical for full assessment. All safety protocols in place maintained. continuing purposeful hourly rounds to assess for needs/safety. * Jony LLOYD, Reddy Holland: PERFORM Event Display: Progress Note Hospital Authored Date: Patient: ??JO ANN LEDESMA ? Age:??43 Years?Sex:??Female?:??1980?? Subjective seen and examined PM&R input noted and appreciated c/o pain Review of Systems Constitutional: No fever or chills. ENT: No sore throat or nasal congestion. Respiratory: No shortness of breath or cough??. Cardiovascular: No chest pain or??palpitation. Gastrointestinal: No nausea, vomiting or diarrhea. MSK: c/o pain Neurology: No speech problem no vision problem no focal weakness, no dizziness. Psychiatric: Cooperative, normal mood and affect Objective ?? Physical Exam Awake, alert, oriented Lungs: Clear to auscultation bilateral, no wheezing no rales Heart: Regular rate and rhythm, no murmur, no rub or gallop Abdomen: Soft, nontender, nondistended; Bowel sounds present Extremity: No edema cyanosis clubbing Neurological: No focal deficit Psychiatric: Normal mood and affect Assessment/Plan Assessment:??43 y/o female with PMH including low back pain, sacroiliitis, HLD, GERD, obesity, B12 deficiency on monthly injection, iron deficiency anemia, diverticulitis s/p partial colectomy with colostomy bag s/p reversal, abdominal hernia repair, ovarian cyst, anxiety, depression, bipolar. Patient presented to ER with low back pain. ? Sacroiliac pain (M53.3): Chronic Sacroiliitis (M46.1): Chronic Right LE numbness / weakness, ?radiculopathy/neuropathy: ?? MRI does show mild mass effect on the right L4 nerve root related to a disc extrusion at L3-4, thisis similar to prev imaging.R1 R2 Notably inflammatory markers are low. Inflammatory markers are low. ??Pt has no UMN signs on exam. She is voiding without difficulty. Motor strength good ?? PM&R consulted and suggest that her symptoms are more consistent with Fibromyalgia. ?? Plan: Will avoid IV opioid pain medications ?? Will continue Dilaudid 2mg PO q 4 hrs prn moderate pain OR 4mg q 4 hrs prn severe pain Will d/c IV steroid and give short course of prednisone Will d/c Ibuprofen Will add??Flexeril 5mg tid scheduled. ??Continue scheduled tylenol. ?She has not tolerated Lyrica or Gabapentin in the past. ??PT eval. ?She can follow up with her surgeon in [place] for surgical plan next month (already scheduled). ?? HLD: Continue atorvastatin. ?? Anxiety/depression/bipolar: Will continue Lexapro, trazodone. Ativan as needed. Will continue Topamax. ?? VTE Prophylaxis: SQ Lovenox ? Code Status: Full code ? Discharge Planning:? Consult note * Inocencio LLOYD, Cy Massey: PERFORM Event Display: Consultation Note Authored Date: Patient: ??JO ANN LEDESMA ? Age:??43 Years?Sex:??Female?:??1980?? History of Present Illness 42yo F with h/o chronic back pain, reported sacro-iliitis,??bipolar d/o, b12 deficiency presented to the ED c/o flare up of her back pain over the last several weeks associated with weak and numbnessRLE.?She denies any constipation or bowel incontinence. She has been voiding without??difficulty. ?She has had 2 MRI L spine done last summer??which did not show any cord compression or cauda equina compression. They did reveal mild multilevel degenerative changes including crowding of the right L3 and right L4 nerve roots as well as, possible (but not definitive) compression of the left L5 nerve root. There is essentially no central stenosis. She denies any recent inciting event or traumathat elicited this flare up in her pain. Laboratory data was underwhelming with normal ESR and CRP.??MRI L spine was repeated this admission which showed mild degenerative changes with??disc extrusion and possible mild mass effect on the right L4 nerve root. She has tried LESI several times in the past without any benefit. She has tried PT and various medications over the years with only marginal benefit. She was on a pain contract with an outside PCP inthe past and was receiving Dilaudid PO 2- 4mg as needed but is no longer taking this medication.?It is unclear if there was a contract violation or other reason it was stopped. KENNETH MAURER was pulled and she has been receiving Percocet 5/325 #28 bi-monthly with occasional??lorazepam and Clonazepam.??During this admission, she is receiving Scheduled Oxycodone 5mg q 6 hours and??IV Dilaudid for breakthrough pain. She was??placed on Solumedrol??125mg daily??and Ibuprofen 800mg tid.?She lives with her sister in 3rd floor walkup [facility]. She is indep with ADLs and mobility. She uses a cane occasionally when she has flare up of back pain. She had MRI C and T spine as well last year which were underwhelming. The patient told me she was diagnosed with right sacroiliitis in May and had an SI injection that did not help much. She saw an orthopedic spine surgeon in [place] Dr. Waddell and is tentatively scheduled for a sacro-iliac fusion on November 11 at [facility]. Review of Systems 14 point review of systems negative except as noted above in HPI. Physical Exam Vitals & Measurements T:??97.8?F?? HR:??60??(Peripheral)?? RR:??20?? BP:??127/78?? SpO2:??95%?? HT:??170??cm?? WT:??102??kg?? BMI:??35.29?? Gen: Alert, oriented x 3 in mild discomfort. HEENT: PERRL CV: Reg, no murmurs Chest: CTA bilat Abd: +BS, soft, NT Exts:??no pedal edema Back: no step off or deformity. Tenderness to minimal palpation of the thoracic and lumbar areas and throughout the body. Neuro: CN II-XII intact MMT: (limited by diffuse tenderness) ?? RUE:?LUE: Delt?5/5?Delt?5/5 Bi?5/5?Bi?5/5 WE? 5/5? WE? 5/5 Tri? 5/5? Tri? 5/5 FF? 5/5? FF?5/5 ?? Giveway weakness RLE RLE:? LLE: HF? 5/5? HF? 5/5 Quad?? 5/5? Quad?? 5/5 DF? 5/5? DF? 5/5 PF? 5/5? PF?5/5 Edwards's negative Babinski absent Sensory: vague numbness involving the entire RLE. DTRs: biceps and patella 1+ bilat, normal tone, no clonus. SLR: mildy positive on right but limited by excessive pain response to any movement. Elmer test: mildly positive. Diffuse tenderness??quadratus lumborum and right SI joint. ?? Assessment/Plan 42yo F with h/o chronic pain, recent flare up of back pain which has been refractory to treatment thus far admitted 2nd time this month for flare up of back pain. Pt??has no UMN signs on exam. She is voiding without difficulty. Her symptoms are more consistent with Fibromyalgia. ?? Recommendations: I do not recommend IV opioid pain medications and I explained this to her today. She is opioid tolerant so pain mgmt will be challenging. Dilaudid 2mg PO q 4 hrs prn moderate pain OR 4mg q 4 hrs prn severe pain is recommended. I am not convinced Solumedrol will be beneficial. However, if she remains on this medication, Ibuprofen should be stopped--texted with Dr. Borges. Add Flexeril 5mg tid scheduled. Continue scheduled tylenol. She has not tolerated Lyrica or Gabapentin in the past. PT eval. If pain does not improve, recommend obtaining APS consult. ?? She can follow up with her surgeon in [place] for surgical plan next month. Problem List/Past Medical History Ongoing Anxiety Chronic low back pain Depression GERD (gastroesophageal reflux disease) Morbid obesity Severe obesity (BMI 35.0-39.9) with comorbidity Stress incontinence Procedure/Surgical History No qualifying data available. Home Medications Acetaminophen: 650 mg, By Mouth, Every 6 hours, PRN (Pain , Mild) Atorvastatin: 10 mg = 1 tablet, By Mouth, Daily at bedtime Clonazepam: 1 mg = 1 tablet, By Mouth, Daily at bedtime Cyanocobalamin: 1,000 mcg, Intramuscular, Every 28 days Cyclobenzaprine: 5 mg, By Mouth, 3 times a day Docusate: 100 mg = 1 capsule, By Mouth, Daily, PRN (as needed for constipation) Escitalopram Folic Acid: 1 mg = 1 tablet, By Mouth, Daily Ibuprofen: 800 mg, By Mouth, Every 8 hours Leuprolide: 3.75 mg, Intramuscular, Every 28 days Lorazepam: 1 mg = 1 tablet, By Mouth, 2 times a day, PRN (as needed for anxiety) Nystatin Topical: 1 application, Topically, 2 times a day, PRN Ondansetron: 8 mg = 2 tablet, By Mouth, Every 28 days, PRN (Nausea & Vomiting), Q8H, taken [id number] inj Scopolamine: 1 patch, Topically, Every 28 days, PRN (Nausea), apply to skin; taken with VitB12 injection Senna: 8.6 mg = 1 tablet, By Mouth, Daily, PRN (as needed for constipation) Topiramate: 3 tablets, By Mouth, Daily at bedtime Trazodone: 2 tablets, By Mouth, Daily at bedtime Hospital Medications Medications (20) Active SCHEDULED: (11) Acetaminophen 325 mg Tablet (Tylenol 325 mg oral tablet) ??650 mg, By Mouth, Every 6 hours Atorvastatin 10 mg Tablet (atorvastatin 10 mg oral tablet) ??10 mg, By Mouth, Daily at bedtime Enoxaparin 40 mg Inj (Enoxaparin Inj) ??40 mg 0.4 mL, Subcutaneous Injection, Daily Escitalopram 10 mg Tablet (escitalopram 10 mg oral tablet) ??20 mg, By Mouth, Daily Folic Acid 1 mg Tablet (folic acid 1 mg oral tablet) ??1 mg, By Mouth, Daily Ibuprofen 800 mg Tablet (ibuprofen 800 mg oral tablet) ??800 mg, By Mouth, Every 8 hours MethylPREDNISolone Sodium Succinate 125 mg Inj (SoluMedrol Inj) ??125 mg, IV Push Slowly, Daily NaCl 0.9% Flush 3ml (NaCL 0.9% Flush) ??3 mL, IV Push, Every 8 hours OxyCODONE 5 mg IR Tablet (oxyCODONE 5 mg oral tablet) ??5 mg, By Mouth, Every 6 hours Topiramate 100 mg Tablet (Topiramate Tablet) ??300 mg, By Mouth, Daily at bedtime Trazodone 50 mg Tablet (traZODone 50 mg oral tablet) ??200 mg, By Mouth, Daily at bedtime CONTINUOUS: (0) PRN: (9) Dextromethorphan-Guaifenesin 20 mg-200 mg/10 mL Liqu UD (Robitussin DM Liquid) ??10 mL, By Mouth, Every 4 hours Docusate Sodium 100 mg Capsule (Docusate Sodium Capsule) ??100 mg 1 capsule, By Mouth, 2 times a day HYDROmorphone 0.5 mg/0.5 mL Inj Syringe (Dilaudid Inj) ??0.5 mg 0.5 mL, IV Push Slowly, Every 4 hours Lorazepam 1 mg Tablet (Ativan 1 mg oral tablet) ??1 mg, By Mouth, 2 times a day Melatonin 3 mg Tablet (Melatonin Tablet) ??3 mg, By Mouth, Daily at bedtime NaCl 0.9% Flush 3ml (NaCL 0.9% Flush) ??3 mL, IV Push, Every 8 hours Polyethylene Glycol 17 Gm Powder (MiraLax Powder) ??17 Gm 1 pack/packet, By Mouth, Daily Senna Tablet ??8.6 mg 1 tablet, By Mouth, 2 times a day Simethicone 80 mg Chewable Tablet (Simethicone Tablet) ??80 mg, Chew, 3 times a day Lab Results PM&R Labs WBC: 8.4 k/mm3 (10/13/23) Platelet Count: 305 k/mm3 (10/13/23) Sodium: 140 mmol/L (10/13/23) BUN: 19 mg/dL (10/13/23) Creatinine-Blood: 0.7 mg/dL (10/13/23) Note * Bernadine Fiore LPN: PERFORM Event Display: Discharge/Transfer Note Hospital Authored Date: Nursing Discharge Note Entered On: 10/14/2023 11:54 EST Performed On: 10/14/2023 11:54 EST by Bernadine Fiore LPN Nursing Discharge Note 2 Discharge Time : 10/14/2023 12:05 EST Discharge Comments : d/c paperwork reviewed and signed with pt. iv access removed, dcd intact. all belongings in pt pocession. left unit via w/c transfer. Bernadine Fiore LPN - 10/14/2023 12:10 EST Discharge Level of Care at Discharge : Home/Detention/Foster Care Patient Left Unit Via : Wheelchair Patient Accompanied Off Unit with : Responsible adult DC Instructions Provided & Signed by Pt : Yes Patient Understands D/C Instructions : Yes Verbalized Understanding of D/C Plan By : Patient Patient Instructions Discharge Signed : Yes Did Pt have Specialty Bed or Wound Vac : No Bernadine Fiore LPN - 10/14/2023 11:54 EST * Jony LLOYD, Reddy Holland: PERFORM, MODIFY Event Display: Discharge/Transfer Note Hospital Authored Date: Patient: ??JO ANN LEDESMA ? Age:??43 Years?Sex:??Female?:??1980?? Patient Information Discharge Location: 4 Primary Care Physician: Dwayne MOE , Todd Leyva Admit Date/Time: 10/12/23 07:09 Discharge Disposition Discharge Disposition: ?? Discharge Diagnosis Hypokalemia (E87.6) Mechanical back pain (M54.9) Sacroiliac pain (M53.3) Sacroiliitis (M46.1) ?? _ Discharge Medications Acetaminophen (acetaminophen 500 mg oral capsule)?2?capsule?1,000?Milligram?By Mouth?3 times a day?as needed?for fever?tablet ok too Atorvastatin (atorvastatin 10 mg oral tablet)?1?tab(s)?10?Milligram?By Mouth?Daily at bedtime Clonazepam (KlonoPIN 1 mg oral tablet)?1?tab(s)?1?Milligram?By Mouth?Daily at bedtime Cyanocobalamin (cyanocobalamin 1000 mcg/ml injectable solution)?1,000?Microgram?Intramuscular?Every 28 days Cyclobenzaprine (cyclobenzaprine 5 mg oral tablet)?1?tab(s)?5?Milligram?By Mouth?3 times a day Docusate (docusate sodium 100 mg oral capsule)?1?capsule?100?Milligram?By Mouth?Daily?as needed?as needed for constipation Escitalopram (escitalopram 10 mg oral tablet)?20?Milligram?By Mouth?Daily Folic Acid (folic acid 1 mg oral tablet)?1?Milligram?1?tablet?By Mouth?Daily Leuprolide (Lupron Depot 3.75 mg intramuscular kit)?3.75?Milligram?Intramuscular?Every 28 days Lidocaine Topical (lidocaine 5% topical film)?See Instructions?1 pathc Topically Daily Lorazepam (Ativan 1 mg oral tablet)?1?tab(s)?1?Milligram?By Mouth?2 times a day?as needed?as needed for anxiety Ondansetron (ondansetron 4 mg oral tablet)?2?tab(s)?8?Milligram?By Mouth?Every 28days?as needed?Nausea & Vomiting?for 7?Days?Q8H, taken with vitB12 inj Oxycodone (oxyCODONE 5 mg oral capsule)?1?capsule?5?Milligram?By Mouth?Every 4 hours?as needed?as needed for pain PredniSONE (predniSONE 50 mg oral tablet)?1?tab(s)?50?Milligram?By Mouth?Daily?for 3?Days Scopolamine (scopolamine 1 mg/72 hr transdermal film, extended release)?1?patch(es)?Topically?Every 28 days?as needed?Nausea?for 7?Days?apply to skin; taken with VitB12 injection Senna (senna 187 mg oral tablet)?1?tab(s)?8.6?Milligram?By Mouth?Daily?as needed?as needed for constipation Topiramate (topiramate 100 mg oral tablet)?3 tablets?By Mouth?Daily at bedtime Trazodone (traZODone 100 mg oral tablet)?2 tablets?By Mouth?Daily at bedtime ? Medications Started Dilaudid Medications Discontinued Oxycodone (She filled oxy on 10/06/23, but states ran out) Allergies Allergies ?(Active and Proposed Allergies Only) Lyrica? (Severity: Persistent Mild, Onset: Unknown) ?Comments: muscle spasms gabapentin? (Severity: Persistent Mild, Onset: Unknown) ?Comments: mucsle spasms aloe vera topical? (Severity: Unknown severity, Onset: Unknown) Reglan? (Severity: Unknown severity, Onset: Unknown) ? Hospital Course 43 y/o female with PMH including low back pain, sacroiliitis, HLD, GERD, obesity, B12 deficiency onmonthly injection, iron deficiency anemia, diverticulitis s/p partial colectomy with colostomy bag s/p reversal, abdominal hernia repair, ovarian cyst, anxiety, depression, bipolar. Patient presentedto ER with low back pain. ?Sacroiliac pain (M53.3): Chronic ??Sacroiliitis (M46.1): Chronic ??Right LE numbness / weakness, ?radiculopathy/neuropathy: ? MRI does show mild mass effect on the right L4 nerve root related to a disc extrusion at L3-4, thisis similar to prev imaging.R1 R2 Notably inflammatory markers are low. ??Inflammatory markers are low. ?Pt has no UMN signs on exam. ??She is voiding without difficulty. ??Motor strength good ? PM&R consulted and suggest that her symptoms are more consistent with Fibromyalgia. ?as per patient's request Oxy changed to dialudid. Added prednisone ?? Added Flexeril Will avoid IV for chronic pain ?? She wants to go home She is being discharged home in a stable and improved condition ? Plan: ??Will continue Dilaudid 2mg PO q 4 hrs prn Will continue Prednisone for 3 more days Will continue scheduled Flexeril Will continue scheduled tylenol. ? She has not tolerated Lyrica or Gabapentin in the past. ? She will follow up with her surgeon in [place] for surgical plan next month (already scheduled). ? HLD: Continue atorvastatin. ? Anxiety/depression/bipolar: ??Will continue Lexapro, trazodone. ??Ativan as needed. ??Will continue Topamax. ?Code Status: Full code ? Objective Assessment and Plan Assessment:??43 y/o female with PMH including low back pain, sacroiliitis, HLD, GERD, obesity, B12 deficiency on monthly injection, iron deficiency anemia, diverticulitis s/p partial colectomy with colostomy bag s/p reversal, abdominal hernia repair, ovarian cyst, anxiety, depression, bipolar. Patient presented to ER with low back pain. ? Sacroiliac pain (M53.3): Chronic Sacroiliitis (M46.1): Chronic Right LE numbness / weakness, ?radiculopathy/neuropathy: ?? MRI does show mild mass effect on the right L4 nerve root related to a disc extrusion at L3-4, thisis similar to prev imaging.R1 R2 Notably inflammatory markers are low. Inflammatory markers are low. ??Pt has no UMN signs on exam. She is voiding without difficulty. Motor strength good ?? PM&R consulted and suggest that her symptoms are more consistent with Fibromyalgia. ?? Plan: Will avoid IV opioid pain medications ?? Will continue Dilaudid 2mg PO q 4 hrs prn moderate pain OR 4mg q 4 hrs prn severe pain Will d/c IV steroid and give short course of prednisone Will d/c Ibuprofen Will add??Flexeril 5mg tid scheduled. ??Continue scheduled tylenol. ?She has not tolerated Lyrica or Gabapentin in the past. ??PT eval. ?She can follow up with her surgeon in [place] for surgical plan next month (already scheduled). ?? HLD: Continue atorvastatin. ?? Anxiety/depression/bipolar: Will continue Lexapro, trazodone. Ativan as needed. Will continue Topamax. ?? VTE Prophylaxis: SQ Lovenox ? Code Status: Full code ? Vital Signs?? Temperature: 97.6 DegF (10/14/23 05:00:00) Temperature Route: Oral (10/14/23 05:00:00) Pulse Rate: 76 bpm (10/14/23 05:00:00) Respiratory Rate: 18 br/min (10/14/23 10:41:00) Systolic Blood Pressure: 126 mm Hg (10/14/23 05:00:00) Diastolic Blood Pressure:??88 mm Hg??High (10/14/23 05:00:00) Blood pressure sites: Arm, right (10/14/23 05:00:00) Mean Arterial Pressure: 103 mm Hg (10/13/23 14:37:00) Pulse Pressure: 38 mm Hg (10/14/23 05:00:00) Oxygen Saturation: 97 % (10/14/23 05:00:00) Mode of Delivery (Oxygen): Room air (10/14/23 05:00:00) Early Warning Score: 2 (10/14/23 10:42:02) ? . Physical Exam Awake, alert, oriented Lungs: Clear to auscultation bilateral, no wheezing no rales Heart: Regular rate and rhythm, no murmur, no rub or gallop Abdomen: Soft, nontender, nondistended; Bowel sounds present Extremity: No edema cyanosis clubbing Neurological: No focal deficit Psychiatric: Normal mood and affect Pending Results Add On Lab Order ordered on 10/12/2023 Follow-Up Appointments Added Follow Up ?Time Frame ?Comments Dwayne MOE , Todd Leyva Home Health Face to Face ^[facility] Results Discharge Labs BLOOD COUNT & DIFF WBC 9.0 k/mm3 ()?? 10/14/2023 00:39 RBC 4.92 m/mm3 ()?? 10/14/2023 00:39 Hgb 14.9 Gm/dL ()?? 10/14/2023 00:39 Hct 45.5 % ()?? 10/14/2023 00:39 MCV 92.5 femtoliters ()?? 10/14/2023 00:39 MCH 30.3 pg ()?? 10/14/2023 00:39 MCHC 32.7 g/dL (Low)?? 10/14/2023 00:39 Platelet Count 324 k/mm3 ()?? 10/14/2023 00:39 RDW-SD 44.9 femtoliters ()?? 10/14/2023 00:39 MPV 10.4 femtoliters ()?? 10/14/2023 00:39 Nucleated RBC (Automated) 0.0 #/100 WBC'S ()?? 10/14/2023 00:39 Abs. NRBC 0.0 k/mm3 ()?? 10/14/2023 00:39 Abs. Neut 6.4 k/mm3 ()?? 10/14/2023 00:39 Abs. Lymph 1.7 k/mm3 ()?? 10/14/2023 00:39 Abs. [place]awnee 0.8 k/mm3 ()?? 10/14/2023 00:39 Abs. Eo 0.0 k/mm3 ()?? 10/14/2023 00:39 Abs. Baso 0.0 k/mm3 ()?? 10/14/2023 00:39 Neut % 71.5 % ()?? 10/14/2023 00:39 Lymph % 19.4 % ()?? 10/14/2023 00:39 [place]nee % 8.3 % ()?? 10/14/2023 00:39 Eos % 0.0 % ()?? 10/14/2023 00:39 Baso % 0.1 % ()?? 10/14/2023 00:39 Atypical Lymph % 0.9 % ()?? 10/12/2023 08:48 Platelet Estimate ADEQUATE ()?? 10/12/2023 08:48 Imm Gran 0.7 % ()?? 10/14/2023 00:39 Abs. Imm Gran 0.1 k/mm3 ()?? 10/14/2023 00:39 ?? CHEM GENERAL Sodium 141 mmol/L ()?? 10/14/2023 00:39 Potassium 4.8 mmol/L ()?? 10/14/2023 00:39 Chloride 106 mmol/L ()?? 10/14/2023 00:39 Bicarbonate Level 20 mmol/L (Low)?? 10/14/2023 00:39 Anion Gap 15 ()?? 10/14/2023 00:39 Glucose Level 95 mg/dL ()?? 10/14/2023 00:39 BUN 15 mg/dL ()?? 10/14/2023 00:39 Creatinine-Blood 0.8 mg/dL ()?? 10/14/2023 00:39 Estimated GFR Creatinine 87 ML/MIN/1.73 M2 ()?? 10/14/2023 00:39 Calcium 9.4 mg/dL ()?? 10/12/2023 08:48 Magnesium 2.6 mg/dL (High)?? 10/14/2023 00:39 C-Reactive Protein <0.3 mg/dL ()?? 10/12/2023 08:48 ?? ENDOCRINE/TUMOR MARKER BHCG (HCG & Beta) <1 mIU/mL ()?? 10/12/2023 08:48 ? HEME OTHER Sed Rate 6 mm/hr ()?? 10/12/2023 08:48 ? URINE OTHER Est Creatinine Clearance 86.13 mL/min ()?? 10/14/2023 02:46 ? 35 minutes spent on discharge ?? Addendum Pharmacy does not have Dilaudid 2 mg tablet Given Oxycodone instead? * Bernadine Fiore LPN: PERFORM Event Display: Patient Education/Instruction Authored Date: [id number] Inpatient Adult Discharge Instructions. [place] [id number] Name: JO ANN LEDESMA : 1980?? Visit: 10/12/2023 07:09?? Current Date: 10/14/2023 11:23 ?? Account: [id number]?? Inpatient Adult Discharge Instructions We would like [...] and their families. Surveys are administered by [employer] ?? If further treatment with your primary care physician or another doctor is recommended, it is important for you to keep the appointment. Call your primary care physician or return to the Emergency Department immediately if your condition worsens, fails to improve, or new symptoms develop. If you need to find a doctor, you can call [facility] Link for a referral at [phone] or toll free at [phone] or log in to [email or web address].. ?? [facility], in keeping with [facility] guidance, no longer requires face masks for staff, patientsor visitors in most situations. Similiar to time spent indoors at other locations, there is the chance that you were exposed to repiratory viruses during your time with us (such as flu or COVID-19). If you develop symptoms concerning for a viral respiratory infection, please seek testing (and treatment if indicated) from your medical provider or home test kit. ?? You can view and manage your care through the patient portal or by using a health care ranjan of your choosing. [employer] is a website that allows you to securely view your medical information including your hospital discharge summary, office visit summaries, medications and follow-up visits. You can also request appointments, renew medications, and request access to your medical information using a health care ranjan of your choosing, or just ask a question. You can enroll at [email or web address] or register during your next office visit. You have been discharged from [facility], Patient Care Unit: S64??. If you have any questions regarding these instructions, including results of studies pending, afteryou leave, please call us and we will be happy to assist you 23/03. [facility] Your Care Team Attending Physician Reddy Borges MD?? Consulting Providers Reddy Borges MD?? Discharging Providers Reddy Borges MD Reason for Your Visit Refractory mechanical back pain?? Your Diagnosis Back pain Hypokalemia Sacroiliac pain Sacroiliitis Tests Performed Below is a partial list of the tests performed during your hospitalization. You may have had other tests and procedures not included in this list. Please discuss all test results with your provider. Basic Metabolic Panel BUN CBC w/ Differential Creatinine CRP Electrolytes ESR Glucose Level HCG PLUS BETA Magnesium Level MRI Lumbar Spine W+W/O Contrast Add On Lab Order?? Primary Care Provider Dwayne MOE , Todd Leyva? Discharge Vitals Temperature: 97.6 DegF Height: 170 cm Pulse Rate: 76 bpm Weight: 102 kg Respiratory Rate: 18 br/min Body Mass Index:??35.29 kg/m2??Critical Systolic Blood Pressure: 126 mm Hg Body surface area: 2.19 Diastolic Blood Pressure:??88 mm Hg??High ?? Oxygen Saturation: 97 % ?? Studies Pending All studies ordered during this hospital stay have been completed unless listed below. Please discuss all pending results with your provider listed above in these instructions. ?? Add On Lab Order?? What to do next Instructions From Your Doctor ?? Orders? 10/14/23 11:19:00 EST?? Prescriptions??, ??10/14/23 11:19:00 EST?? You Need to Schedule the Following Appointments Follow Up with??Dwayne MOE , Todd Leyva Where: [address] [place] [address]- Discharge Medications JO ANN LEDESMA :1980 Visit Date:10/12/2023 Medications: Please continue your medications until treatment is completed or stopped by your provider. Medications not listed below should be discontinued. Discuss any questions related to medications with your provider. What How Much When Instructions Next Dose New Hydromorphone (Dilaudid 2 mg oral tablet) 1 tab(s) Oral Every 4 hours as needed for Pain , Moderate Pickup at [place] [address] NEEDED New Lidocaine Topical (lidocaine 5% topical film) See instructions 1 pathc Topically Daily ?? Pickup at [place] [address] 10/15/23 8:00 AM New PredniSONE (predniSONE 50 mg oral tablet) 1 tab(s) Oral Daily Duration: 3 Days Pickup at [place] [address] 10/15/23 8:00 AM Changed Acetaminophen (acetaminophen 500 mg oral capsule) 2 capsule Oral 3 times a day as needed for for fever tablet ok too ?? Pickup at [place] [address] 10/14/23 4:00 PM Changed Cyclobenzaprine (cyclobenzaprine 5 mg oral tablet) 1 tab(s) Oral 3 times a day Pickup at [place] [address] 10/14/23 4:00 PM Changed Escitalopram (escitalopram 10 mg oral tablet) 20 Milligram Oral Daily 10/15/23 8:00 AM Unchanged Atorvastatin (atorvastatin 10 mg oral tablet) 1 tab(s) Oral Daily at Bedtime 10/14/23 8:00 PM Unchanged Clonazepam (KlonoPIN 1 mg oral tablet) 1 tab(s) Oral Daily at Bedtime 10/14/23 8:00 PM Unchanged Cyanocobalamin (cyanocobalamin 1000 mcg/ ml injectable solution) 1,000 Microgram Intramuscular Every 28 days Unchanged Docusate (docusate sodium 100 mg oral capsule) 1 capsule Oral Daily as needed for as needed for constipation NEEDED Unchanged Folic Acid (folic acid 1 mg oral tablet) 1 tab(s) Oral Daily 10/15/23 8:00 AM Unchanged Leuprolide (Lupron Depot 3.75 mg intramuscular kit) 3.75 Milligram Intramuscular Every 28 days Unchanged Lorazepam (Ativan 1 mg oral tablet) 1 tab(s) Oral Twice a day as needed for as needed for anxiety NEEDED Unchanged Ondansetron (ondansetron 4 mg oral tablet) 2 tab(s) Oral Every 28 days as needed for Nausea & Vomiting Duration: 7 Days Q8H, taken with vitB12 inj ?? NEEDED Unchanged Scopolamine (scopolamine 1 mg/ 72 hr transdermal film, extended release) 1 patch(es) Topically Every 28 days as needed for Nausea Duration: 7 Days apply to skin; taken with VitB12 injection ?? NEEDED Unchanged Senna (senna 187 mg oral tablet) 1 tab(s) Oral Daily as needed for as needed for constipation NEEDED Unchanged Topiramate (topiramate 100 mg oral tablet) 3 tablets Oral Daily at Bedtime 10/14/23 8:00 PM Unchanged Trazodone (traZODone 100 mg oral tablet) 2 tablets Oral Daily at Bedtime 10/14/23 8:00 PM [facility] [address], [place] [id number] [phone] ?? What How Much When Comments Stop Taking Ibuprofen (ibuprofen 800 mg oral tablet) 800 Milligram Oral Every 8 hours Stop Taking Nystatin Topical (nystatin topical 097273 u/ gm powder) 1 ranjan Topically Twice a day PRN ?? Prescription Given During Visit Acetaminophen (acetaminophen 500 mg oral capsule) - 2 capsule = 1,000 mg, By Mouth, 3 times a day, # 30 capsule, 0 Refills, tablet ok too, [place] [id number]?? Cyclobenzaprine (cyclobenzaprine 5 mg oral tablet) - 1 tablet = 5 mg, By Mouth, 3 times a day, # 30tablet, 0 Refills, [place] [id number]?? Hydromorphone (Dilaudid 2 mg oral tablet) - 1 tablet = 2 mg, By Mouth, Every 4 hours, # 18 tablet, 0 Refills, [place] [id number]?? Lidocaine Topical (lidocaine 5% topical film) - , # 30 patch, 0 Refills, 1 pathc Topically Daily, [place] [id number]?? PredniSONE (predniSONE 50 mg oral tablet) - 1 tablet = 50 mg, By Mouth, Daily, # 3 tablet, 0 Refills, [place] [id number]?? Laboratory Results Below is a partial list of the most recent Laboratory test results done prior to this discharge. You may have had other tests and procedures not included in this list. Please discuss all test resultswith your provider. Est Creatinine Clearance - 86.13 mL/min (10/14/2023) Basic Metabolic Panel (10/12/2023) ???Sodium - 142 mmol/L???Potassium - 3.4 mmol/L???Chloride - 107 mmol/L???Bicarbonate Level - 21 mmol/L???Anion Gap - 14???Glucose Level - 81 mg/dL???BUN - 15 mg/dL???Creatinine-Blood - 0.7 mg/dL???Estimated GFR Creatinine - 107 ML/MIN/1.73 M2???Calcium - 9.4 mg/dL BUN (10/14/2023) ???BUN - 15 mg/dL CBC w/ Differential (10/14/2023) ???WBC - 9.0 k/mm3???RBC - 4.92 m/mm3???Hgb - 14.9 Gm/dL???Hct - 45.5 %???MCV - 92.5 femtoliters???MCH - 30.3 pg???MCHC - 32.7 g/dL???Platelet Count - 324 k/mm3???RDW-SD - 44.9 femtoliters???MPV - 10.4 femtoliters???Nucleated RBC (Automated) - 0.0 #/100 WBC'S???Abs. NRBC - 0.0 k/mm3???Abs. Neut - 6.4 k/mm3???Abs. Lymph - 1.7 k/mm3???Abs. [place] - 0.8 k/mm3???Abs. Eo - 0.0 k/mm3???Abs. Baso - 0.0 k/mm3???Neut % - 71.5 %???Lymph % - 19.4 %???[place] % - 8.3 %???Eos % - 0.0 %???Baso % - 0.1 %???Imm Gran - 0.7 %???Abs. Imm Gran - 0.1 k/mm3 Creatinine (10/14/2023) ???Creatinine-Blood - 0.8 mg/dL???Estimated GFR Creatinine - 87 ML/MIN/1.73 M2 CRP (10/12/2023) ? ?C-Reactive Protein - <0.3 mg/dL Electrolytes (10/14/2023) ???Sodium - 141 mmol/L???Potassium - 4.8 mmol/L???Chloride - 106 mmol/L???Bicarbonate Level - 20 mmol/L???Anion Gap - 15 ESR (10/12/2023) ???Sed Rate - 6 mm/hr Glucose Level (10/14/2023) ???Glucose Level - 95 mg/dL HCG PLUS BETA (10/12/2023) ? ?BHCG (HCG & Beta) - <1 mIU/mL Magnesium Level (10/14/2023) ???Magnesium - 2.6 mg/dL Allergies (NKA means No Known Allergies) Lyrica gabapentin Reglan aloe vera topical Problems Active Problems??(7) Anxiety?? Chronic low back pain?? Depression?? GERD (gastroesophageal reflux disease)?? Morbid obesity?? Severe obesity (BMI 35.0-39.9) with comorbidity?? Stress incontinence?? Education Materials Below is the list of Educational Leaflet Providered with your Discharge Instructions. Valuables and Belongings I fully understand and agree that [facility] accepts no responsibility for all my personal [...] to send valuables and belongings home. ?? Review of Valuable and Belonging List: With patient Date for Pt to Sign Valuables/Belongings: 10/12/23 17:06:00 ?? Other Discharge Information ? Pulmonary Rehab Status?? Pulmonary Rehab Discharge Status?? [...] are strongly encouraged to quit. Please call [facility] at [phone] or [phone]-[phone] ([phone]) or log in to [email or web address] for referrals to smoking cessation programs. ?? 296 Suicide & Crisis Lifeline is available 23/03 if you or someone you know needs to find a reason to keep living. By calling 403 you'll be connected to a skilled, trained counselor at a crisis center in your area. INPATIENT DISCHARGE INSTRUCTIONS SIGNATURE PAGE JO ANN LEDESMA Location:[facility] Registration Date and Time:10/12/2023 07:09 EST Primary Care Physician: Dwayne MOE , Todd Leyva, Attending Physician: Joyn LLOYD, Reddy Holland, I JO ANN LEDESMA, have received the above patient education materials/instructions and have verbalized understanding. If ambulance or transport services are being used I further acknowledge being given a choice of service. ?? If you need to contact me, please call me at this number: . Patient/Sawmill Hand Name: Patient/Sawmill Hand Signature: Relationship to Patient: Witness Name/Signature: Date: Patient Care team information Care Team Personnel Name: Jackie Mcclellan RN Position: S RN Member Role: Primary Care Nurse Name: Geni Davis RN Position: S RN Member Role: Primary Care Nurse Name: Bernadine Fiore LPN Position: S RN Member Role: Primary Care Nurse Name: Germán Robins Jr, RN Position: S RN Member Role: Primary Care Nurse Name: Todd Rice NP Position: Reference Physician Member Role: PCP Address: Address: [address] [place] [id number] Name: Shaka Sampson Position: S RN Member Role: Primary Care Nurse Name: Valeri Langston RN Position: [facility] ED RN W/OE and Tasks Member Role: Primary Care Nurse Name: Shiva Pinto RN Position: S RN Member Role: Primary Care Nurse Name: Harmony Tapia RN Position: S RN Member Role: Primary Care Nurse Name: Lauryn Cavazos RN Position: S RN Member Role: Primary Care Nurse Name: Marizol Doherty RN, I Position: S RN Member Role: Primary Care Nurse Care Team Related Persons Name: AMALIA LEDESMA Address: [place], [place] Name: AMPARO LEDESMA Address: home [facility] [place] [address] Name: JAN DUNCAN Address: home [address] [place] [address] Name: CHELLE GIL Address: home [address] [place] [id number]
--- OUTSIDE RECORDS SUMMARY | 2024-06-29 06:38 | XMS_ITS | Continuity of Care Document ---
Author Organization [facility] ter Address [address] [place] [address]- Care Team Providers Care Second Floor Operator Name Role Phone Dwayne MOE, Todd Leyva Primary Care Physician Encounter [facility] Date(s): 08/22/20 - 08/23/[address] [address]- Discharge Disposition: A-D/C Home Attending Physician: Ashish Schneider MD Admitting Physician: Ashish Schneider MD Referring Physician: Not on Staff, Referring MD Allergies, Adverse Reactions, Alerts Substance Reaction Severity Status aloe vera topical Active Reglan Active Medications acetaminophen 325 mg oral tablet = 650 mg, By Mouth, Every 6 hours, 0 Refills, Maintenance, 12/13/14 15:07:56, Tablet Start Date: 12/13/14 Status: Ordered atorvastatin 20 mg oral tablet 1 tablet = 20 mg, By Mouth, Daily, 0 Refills, Maintenance Start Date: 06/19/17 Status: Ordered diazepam 2 mg oral tablet = 2 mg, By Mouth, 3 times a day, 0 Refills, Maintenance, 12/13/14 15:08:00, Tablet Start Date: 12/13/14 Status: Ordered Dilaudid 2 mg oral tablet 1 tablet = 2 mg, By Mouth, 2 times a day, 0 Refills, Maintenance, 06/19/17 9:59:11 Start Date: 06/19/17 Status: Ordered docusate sodium 100 mg oral capsule 1 capsule = 100 mg, By Mouth, 2 times a day, 0 Refills, Maintenance, 12/13/14 15:08:05, Capsule Start Date: 12/13/14 Status: Ordered gabapentin 600 mg oral tablet 1 tablet = 600 mg, By Mouth, 3 times a day, # 90 tablet, 0 Refills, Maintenance, 02/15/15 11:49:50,Tablet Start Date: 02/15/15 Stop Date: 03/17/15 Status: Ordered ibuprofen 600 mg oral tablet = 600 mg, By Mouth, 3 times a day, 0 Refills, Maintenance, 12/13/14 15:08:14, Tablet Start Date: 12/13/14 Status: Ordered Lexapro 20 mg oral tablet 1 tablet = 20 mg, By Mouth, Daily, # 30 tablet, 0 Refills, Maintenance, 11/20/14 8:09:03, Tablet Start Date: 11/20/14 Status: Ordered lidocaine 5% topical film Topically, Daily, 0 Refills, Maintenance, 12/13/14 15:08:26, Patch Start Date: 12/13/14 Status: Ordered Lisinopril By Mouth, Daily, 0 Refills, Maintenance, 08/22/20 21:28:00 EST, Partial fill upon patient request if the prescription is for a schedule II opioid drug. Start Date: 08/22/20 Status: Ordered mirtazapine 7.5 mg oral tablet 2 tablet = 15 mg, By Mouth, Daily at bedtime, 0 Refills, Maintenance, 06/19/17 9:59:52 Start Date: 06/19/17 Status: Ordered oxycodone 20 mg oral tablet, extended release 1 tablet = 20 mg, By Mouth, Every 12 hours, # 60 tablet, 0 Refills, Maintenance, 02/15/15 11:54:15,ER Tablet Start Date: 02/15/15 Stop Date: 03/17/15 Status: Ordered Percocet-5/325 325 mg-5 mg oral tablet 1 tablet, By Mouth, Every 6 hours, PRN Pain, # 12 tablet, 0 Refills, Maintenance, 03/28/15 18:25:48 Start Date: 03/28/15 Status: Ordered Performix P2 Performix P2, See Instructions, # 180 Gm, Refills 1, Tot. Refills 1, Maintenance, Ketamine 10% Baclofen 2% Gabapentin 10% Imipramine 3% Nifedipine 2% Bupivicaine 2% in Liposomal cream, 07/13/17 15:59:58, Compound Start Date: 07/13/17 Status: Ordered Protonix Tablet = 40 mg, By Mouth, Daily, 0 Refills, Maintenance, 12/13/14 15:08:39, EC Tablet Start Date: 12/13/14 Status: Ordered senna 187 mg oral tablet 1 tablet = 8.6 mg, By Mouth, Daily, 0 Refills, Maintenance, 12/13/14 15:08:44, Tablet Start Date: 12/13/14 Status: Ordered SEROquel 100 mg oral tablet 100 mg, 1, tablet, By Mouth, 2 times a day, Refills 0, Maintenance, 06/19/17 10:00:27 Start Date: 06/19/17 Status: Ordered Topamax Tablet By Mouth, 2 times a day, Refills 0, Maintenance, 08/22/20 21:27:00 EST, Partial fill upon patient request if the prescription is for a schedule II opioid drug. Start Date: 08/22/20 Status: Ordered Vitamin D3 5000 intl units oral capsule 1 capsule = 5,000 International_Units, By Mouth, Daily, 0 Refills, Maintenance, 02/12/15 4:53:16 Start Date: 02/12/15 Status: Ordered Zofran 4 mg oral tablet 1 tablet = 4 mg, By Mouth, Every 8 hours, PRN Nausea & Vomiting, # 9 tablet, 0 Refills, Maintenance, 08/23/20 2:43:00 EST, Tablet, [facility]/pharmacy #[id number], Partial fill upon patient request if the prescription is for a schedule II opioid drug. Start Date: 08/23/20 Stop Date: 08/26/20 Status: Ordered Zoloft Tablet = 75 mg, By Mouth, Daily, 0 Refills, Maintenance, 02/12/15 4:52:25 Start Date: 02/12/15 Status: Ordered Problem List Condition Effective Dates Status Health Status Inform ant Anxiety(Confirmed) Active Chronic low back pain(Confirmed) Active Depression(Confirmed) Active GERD (gastroesophageal reflu x disease)(Confirmed) Active Stress incontinence(Confirmed) Active Morbid obesity(Confirmed) Active Results Radiology Reports * Exam Date Time Procedure Performing Provider Status 08/22/20 10:01 PM Chest Portable Estefani Proctor; Au th (Verified) Notes: (Chest Portable) Reason For Exam: Shortness of Breath RESULT: Chest Portable Chest Portable Hx of Present Illness: onset thursday with fever, body aches chills, nausea w v d, + dyspnea walking up stairs, no CP, AP; Reason: Shortness of Breath; Clinical Question(s): CHF COMPARISON: 08/13/2015 FINDINGS: No acute cardiopulmonary process. IMPRESSION: No acute abnormality. Normal exam WSN: [id number] Ordering Physician: Edd Perez MD Dictated By: Ashish Macedo MD Dictated Date/Time: 08/22/20 10:08 p Reviewed By: Ashish Macedo MD Signed By: Ashish Macedo MD Signed Date/Time: 08/22/20 10:08 pm Transcribed By: DEYSI Transcribed Date/Time: 08/22/20 10:07 pm Vital Signs Most recent to oldest [Reference Range]: 1 2 3 Oxygen Saturation [94-100 %] 93 % *L* (08/23/20 2:46 AM) 95 % (08/23/20 1:51 AM) 99 % (08/22/20 11:40 PM) Pulse Rate [55-90 bpm] 78 bpm (08/23/20 2:46 AM) 85 bpm (08/23/20 1:51 AM) 106 bpm *H* (08/22/20 11:40 PM) Blood Pressure [90-138/55-84 mm Hg] 125/68mm Hg (08/23/20 2:46 AM) 123/68mm Hg (08/23/20 1:51 AM) 155/88mm Hg *H* (08/22/20 11:40 PM) Respiratory Rate [16-30 br/min] 20 br/min (08/23/20 2:46 AM) 20 br/min (08/23/20 1:51 AM) 20 br/min (08/22/20 11:40 PM) Temperature [96.8-100.4 DegF] 97.1 DegF (08/23/20 2:46 AM) 97.4 DegF (08/23/20 1:51 AM) 101 DegF *H* (08/22/20 11:40 PM) Mode of Delivery (Oxygen) Room air (08/23/20 2:46 AM) Room air (08/23/20 1:51 AM) Room air (08/22/20 11:40 PM) Blood pressure sites Arm, right (08/23/20 2:46 AM) Arm, right (12/24/20 1:51 AM) Arm, right (08/22/20 11:40 PM) Temperature Route Oral (08/23/20 2:46 AM) Oral (08/23/20 1:51 AM) Oral (08/22/20 11:40 PM) Social History Social History Type Response Smoking Status Current every day chato nova entered on: 06/22/14 Sex
--- OUTSIDE RECORDS SUMMARY | 2024-06-29 06:38 | XMS_ITS | Continuity of Care Document ---
Author Organization [facility] Address [address] [place] [address]- Care Team Providers Care Social Group Worker Name Role Phone Todd Rice NP Primary Care Physician [phone] Encounter [facility] Date(s): 08/20/20 - 08/27/20 [facility] [address] [place] [address]- Encounter Diagnosis Fever(Discharge Diagnosis) - 08/20/20 Attending Physician: Warren Serrato MD Referring Physician: Todd Rice NP Allergies, Adverse Reactions, Alerts Substance Reaction Severity [...] Refills, Maintenance, 08/23/20 2:43:00 EST, Tablet, [facility]/pharmacy #[id number], Partial fill upon patient request if [...] Active Stress incontinence(Confirmed) Active Morbid obesity(Confirmed) Active Diagnosis Diagnosis Type Effective Dates Health Status Clini roxanne Service Informant Fever Discharge Diagnosis 08/20/20 Social History Social History Type Response Smoking Status Current every day chato nova entered on: 06/22/14 Sex
--- OUTSIDE RECORDS SUMMARY | 2024-06-29 06:39 | XMS_ITS | Continuity of Care Document ---
Author Organization [facility] ter Address [address] [place] [address]- Care Team Providers Care Blasting Cap Assembler Name Role Phone Dwayne MOE, Todd Leyva Primary Care Physician [phone] Encounter [facility] Date(s): 02/24/22 - 02/28/[address] [address]- Discharge Disposition: A-D/C Home Attending Physician: Junior Rodríguez MD Admitting Physician: Francisco Javier So MD Referring Physician: Not on Staff, Referring [...] EDT, Capsule Start Date: 12/13/14 Status: Ordered Flexeril 10 mg oral tablet 10 mg, By Mouth, 2 times a day, PRN, Refills 0, Maintenance, Spasm, 02/25/22 12:12:00 EDT, Partial fill upon patient request if the prescription is for a schedule II opioid drug. Start Date: 02/25/22 Status: Ordered Flexeril 10 mg oral tablet 10 mg, Tablet, By Mouth, 2 times a day, PRN for Spasm, Routine, 02/25/22 14:31:00 EDT Start Date: 02/25/22 Stop Date: 02/28/22 Status: Discontinued folic acid 1 mg oral tablet 1 mg, 1, tablet, By Mouth, Daily, Maintenance, 12/14/21 13:38:00 EDT, Partial fill upon patient request if the prescription is for a schedule II opioid drug. Start Date: 12/14/21 Status: Ordered ibuprofen 800 mg oral tablet 800 mg, 1, tablet, By Mouth, 3 times a day, PRN, for 5 days, # 15 tablet, Refills 0, Tot. Refills 0, Acute 03/05/22 9:45:00 EDT, Pain , Moderate, 02/28/22 9:45:00 EDT, Route to Pharmacy Electronically, [facility], Partial fill upon patie... Start Date: 02/28/22 Stop Date: 03/05/22 Status: Ordered LORazepam 1 mg oral tablet 1 tablet = 1 mg, By Mouth, Daily, PRN as needed for anxiety, Maintenance, 12/14/21 13:39:00 EDT, Tablet, Partial fill upon patient request if the prescription is for a schedule II opioid drug. Start Date: 12/14/21 Status: Ordered Lupron Depot 3.75 mg intramuscular kit = 3.75 mg, Intramuscular, Every 28 days, 0 Refills, Maintenance, 02/25/22 12:11:00 EDT, Partial fill upon patient request if the prescription is for a schedule II opioid drug. Start Date: 02/25/22 Status: Ordered nystatin topical 222173 u/gm powder 1 application, Topically, 2 times a day, PRN, Maintenance, 12/14/21 13:40:00 EDT, Powder, Partial fill upon patient request if the prescription is for a schedule II opioid drug. Start Date: 12/14/21 Status: Ordered oxyCODONE 5 mg oral tablet 5 mg, 1, tablet, By Mouth, Every 6 hours, PRN, for 3 days, # 12 tablet, Refills 0, Tot. Refills 0, Acute 03/03/22 9:44:00 EDT, Pain , Severe, 02/28/22 9:44:00 EDT, Route to Pharmacy Electronically, [facility], Partial fill upon patient r... Start Date: 02/28/22 Stop Date: 03/03/22 Status: Ordered oxyCODONE 5 mg oral tablet 5 mg, Tablet, By Mouth, Every 6 hours, PRN for Pain , Severe, Routine, 02/26/22 14:46:00 EDT Start Date: 02/26/22 Stop Date: 02/28/22 Status: Discontinued predniSONE 10 mg oral tablet See Instructions, please take 3 tablets by mouth on 03/01/22 and take 2 tablets by mouth on 03/02/22 and stop, # 5 tablet, 0 Refills, Maintenance, 02/28/22 9:45:00 EDT, Tablet, [facility], Partial fill upon patient request if the prescriptio... Start Date: 02/28/22 Status: Ordered propranolol 10 mg oral tablet 10 mg, 1, tablet, By Mouth, 3 times a day, PRN, Refills 0, Maintenance, Anxiety, 02/25/22 12:12:00 EDT, Partial fill upon patient request if the prescription is for a schedule II opioid drug. Start Date: 02/25/22 Status: Ordered senna 187 mg oral tablet [...] opioid drug. Start Date: 12/14/21 Status: Ordered Toradol Inj 7.5 mg, Injection, IV Push Slowly, 02/28/22 5:00:00 EDT, Stop date 02/28/22 5:00:00 EDT Start Date: 02/28/22 Stop Date: 02/28/22 Status: Completed Transderm-Scop 1 mg/72 hr transdermal film, extended release 1 film, Topically, Every 72 hours, PRN Nausea & Vomiting, 0 Refills, Maintenance, 02/25/22 12:11:00 EDT, Partial fill upon patient request if the prescription is for a schedule II opioid drug. Start Date: 02/25/22 Status: Ordered traZODone 100 mg oral tablet [...] oldest [Reference Range]: 1 2 3 Height 169 cm (02/28/22 4:40 AM) 169 cm (02/27/22 8:29 PM) 169 cm (02/27/22 2:22 PM) Weight 100 kg (02/25/22 9:18 AM) Oxygen Saturation [94-100 %] 99 % (02/28/22 4:40 AM) 99 % (02/27/22 8:29 PM) 95 % (02/27/22 2:22 PM) Pulse Rate [55-90 bpm] 57 bpm (02/28/22 4:40 AM) 69 bpm (02/27/22 8:29 PM) 69 bpm (02/27/22 2:22 PM) Body Mass Index [18.5-24.99] 35.01 *>HHI* (02/25/22 9:18 AM) Blood Pressure [90-138/55-84 mm Hg] 122/80mm Hg (02/28/22 4:40 AM) 125/81mm Hg (02/27/22 8:29 PM) 130/75mm Hg (02/27/22 2:22 PM) Respiratory Rate [16-30 br/min] 18 br/min (02/28/22 10:17 AM) 18 br/min (02/28/22 9:06 AM) 18 br/min (02/28/22 8:36 AM) Temperature [96.8-100.4 DegF] 97.6 DegF (02/28/22 4:40 AM) 97.8 DegF (02/27/22 8:29 PM) 98.1 DegF (02/27/22 2:22 PM) Mode of Delivery (Oxygen) Room air (02/28/22 4:40 AM) Room air (02/27/22 8:29 PM) Room air (02/27/22 2:22 PM) Blood pressure sites Arm, right (02/28/22 4:40 AM) Arm, left (02/27/22 8:29 PM) Arm, right (02/27/22 2:22 PM) Temperature Route Oral (02/28/22 4:40 AM) Oral (02/27/22 8:29 PM) Oral (02/27/22 2:22 PM) Dry Weight 100 kg (02/25/22 9:18 AM) Social History Social History Type Response Smoking Status 10 or more cigarette s (1/2 pack or more)/day in last 30 days entered on: 12/14/21 Sex
--- OUTSIDE RECORDS SUMMARY | 2024-06-29 06:39 | XMS_ITS | Continuity of Care Document ---
Author Organization [facility] Address [address] [place] [address]- Care Team Providers Care Railway Patrol Officer Name Role Phone Dwayne MOE, Todd Leyva Primary Care Physician [phone] Encounter [facility] Date(s): 06/02/23 - 07/02/23 [facility] [address] [place] [address]- Attending Physician: Admtr, Ar8 Allergies, Adverse Reactions, Alerts Substance Reaction Severity [...] EDT, Tablet Start Date: 12/13/14 Status: Ordered Ativan 1 mg oral tablet [...] Status: Ordered cyclobenzaprine 5 mg oral tablet = 5 mg, By Mouth, 3 times a day, # 90 tablet, 0 Refills, Maintenance, 03/31/23 14:25:00 EDT, Tablet, [facility], Partial fill upon patient request if the prescription is for a schedule II opioid drug., 170.18, cm, 03/31/23 8:45:00 EDT, H... Start Date: 03/31/23 Status: Ordered docusate sodium 100 mg oral capsule 1 capsule = 100 mg, By Mouth, Daily, PRN as needed for constipation, 0 Refills, Maintenance, 12/13/14 15:08:05 EDT, Capsule Start Date: 12/13/14 Status: Ordered escitalopram 10 mg oral tablet 0 Refills, Maintenance, 06/02/23 8:13:00 EDT, Partial fill upon patient request if the prescriptionis for a schedule II opioid drug. Start Date: 06/02/23 Status: Ordered folic acid 1 mg oral [...] 03/14/23 16:06:00 EDT, Route to Pharmacy Electronically, [facility], Partial fill upon patient request if the prescription is for a schedule II opioid... Start Date: 03/14/23 Status: Ordered KlonoPIN 1 mg oral tablet 1 tablet = 1 mg, By Mouth, Daily at bedtime, 0 Refills, Maintenance, 06/02/23 8:14:00 EDT, Partial fill upon patient request if the prescription is for a schedule II opioid drug. Start Date: 06/02/23 Status: Ordered Lupron Depot 3.75 mg intramuscular kit = 3.75 mg, Intramuscular, Every 28 days, 0 Refills, Maintenance, 02/25/22 12:11:00 EDT, Partial fill upon patient request if the prescription is for a schedule II opioid drug. Start Date: 02/25/22 Status: Ordered nystatin topical 658497 u/gm powder 1 application, Topically, 2 times [...] Date: 04/16/23 Stop Date: 04/23/23 Status: Ordered scopolamine 1 mg/72 hr transdermal [...] Active Morbid obesity Confirmed Active Obese class I Confirmed Active Social History Social History Type Response Smoking Status 10 or more cigarette s (1/2 pack or more)/day in last 30 days entered on: 12/14/21 Sex Patient Care team information Care Team Personnel Name: Chitra Gomez RN Position: S RN Member Role: Primary Care Nurse Name: Geni Davis RN Position: S RN Member Role: Primary Care Nurse Name: Germán Robins Jr, RN Position: S RN Member Role: Primary Care Nurse Name: Todd Rice NP Position: Reference Physician Member Role: PCP Address: Address: [address] [place] [id number] Name: Shaka Sampson Position: S RN Member Role: Primary Care Nurse Name: Valeri Langston RN Position: S RN Member Role: Primary Care Nurse Name: Shiva Pinto RN Position: S RN Member Role: Primary Care Nurse Name: Harmony Tapia RN Position: S RN Member Role: Primary Care Nurse Name: Lauryn Cavazos RN Position: S RN Member Role: Primary Care Nurse Name: Marizol Doherty RN, I Position: S RN Member Role: Primary Care Nurse Care Team Related Persons Name: AMALIA LEDESMA Address: [place], [place] Name: MAPARO LEDESMA Address: home [address] [place] [address] Name: JAN DUNCAN Address: home [address] [place] [address] Name: CHELLE GIL Address: home [address] [place] [address]
--- OUTSIDE RECORDS SUMMARY | 2024-06-29 06:39 | XMS_ITS | Continuity of Care Document ---
Author Organization [facility] Address [address] [place] [address]- Care Team Providers Care Fire Protection Inspector Name Role Phone Dwayne MOE, Todd Leyva Primary Care Physician [phone] Encounter [facility] Date(s): 01/21/23 - 02/20/23 [facility] [address] [place] [address]- Attending Physician: Paras Stock Admitting Physician: Paras Stock Referring Physician: AdmtrParas Allergies, Adverse Reactions, Alerts Substance Reaction Severity [...] opioid drug. Start Date: 02/25/22 Status: Ordered folic acid 1 mg oral [...] Start Date: 02/25/22 Status: Ordered nystatin topical 558910 u/gm powder 1 application, Topically, 2 times a day, PRN, Maintenance, 12/14/21 13:40:00 EDT, Powder, Partial fill upon patient request if the prescription is for a schedule II opioid drug. Start Date: 12/14/21 Status: Ordered predniSONE 10 mg oral tablet See Instructions, please take 3 tablets by mouth on 03/01/22 and take 2 tablets by mouth on 03/02/22 and stop, # 5 tablet, 0 Refills, Maintenance, 02/28/22 9:45:00 EDT, Tablet, [facility], Partial fill upon patient request [...] opioid drug. Start Date: 12/14/21 Status: Ordered Transderm-Scop 1 mg/72 hr transdermal film, extended [...] Confirmed Active Obese class II Confirmed Active Social History Social History Type [...] Reference Physician Member Role: PCP Address: Address: [address] [place] [id number] Name: Harmony Tapia RN Position: S RN Member Role: Primary Care Nurse Name: Lauryn Cavazos RN Position: S RN Member Role: Primary Care Nurse Care Team Related Persons Name: AMALIA LEDESMA Address: [place], [place] Name: AMPARO LEDESMA Address: home [address] [place] [address] Name: JAN DUNCAN Address: home [address] [place] [address] Name: CHELLE GIL Address: home [address] [place] [address]
--- OUTSIDE RECORDS SUMMARY | 2024-06-29 06:39 | XMS_ITS | Continuity of Care Document ---
Author Organization [facility] ter Address [address] [place] [address]- Care Team Providers Care Cigar Making Machine Supervisor Name Role Phone Dwayne MOE, Todd Leyva Primary Care Physician [phone] Encounter [facility] Date(s): 04/14/23 - 04/16/[address] [address]- Encounter Diagnosis Acute exacerbation of chronic low back pain(Final) - 04/15/23 Discharge Disposition: A-Transfer SNF Attending Physician: Josy Stevens MD Admitting Physician: Josy Stevens MD Referring Physician: Not on Staff, Referring [...] 0 Refills, Maintenance, 03/31/23 14:25:00 EDT, Tablet, [facility] 3, Partial fill upon patient request if the prescription is for a schedule II opioid drug., 170.18, cm, 03/31/23 8:45:00 EDT, H... Start Date: 03/31/23 Status: Ordered cyclobenzaprine 5 mg oral tablet 1 tablet = 5 mg, By Mouth, 3 times a day, for 10 days, 1-2 tabs evvery 9 hours for spasm, PRN, # 30tablet, 0 Refills, Acute 04/26/23 16:41:00 EDT, 04/16/23 16:41:00 EDT, Tablet, Partial fill upon patient request if the prescription is for a schedule... Start Date: 04/16/23 Stop Date: 04/26/23 Status: Ordered Dilaudid 2 mg oral tablet 2 mg, Tablet, By Mouth, Every 4 hours, PRN for Pain , Moderate, Routine, 04/14/23 20:59:00 EDT Start Date: 04/14/23 Stop Date: 04/17/23 Status: Discontinued Dilaudid 2 mg oral tablet 1 tablet = 2 mg, By Mouth, Every 4 hours, PRN as needed for pain, PRN, decrease frequwncy of use aspossible, # 24 tablet, 0 Refills, Acute 08/11/24 0:00:00 EST, 04/16/23 16:41:00 EDT, Tablet, Partial fill upon patient request if the prescription is f... Start Date: 04/16/23 Stop Date: 08/11/24 Status: Ordered Dilaudid Inj 1 mg, Injection, IVPB, Every 2 hours for 1 doses/times, in 50cc NS over 10 minutes, PRN for Pain , Severe, STAT, 04/16/23 15:03:00 EDT, Stop date 04/17/23 0:00:00 EDT Start Date: 04/16/23 Stop Date: 04/16/23 Status: Completed docusate sodium 100 mg oral capsule 1 capsule = 100 mg, By Mouth, Daily, PRN as needed for constipation, 0 Refills, Maintenance, 12/13/14 15:08:05 EDT, Capsule Start Date: 12/13/14 Status: Ordered Flexeril 10 mg oral tablet 10 mg, Tablet, By Mouth, 04/16/23 15:00:00 EDT Start Date: 04/16/23 Stop Date: 04/16/23 Status: Completed folic acid 1 mg oral tablet 1 [...] 03/14/23 16:06:00 EDT, Route to Pharmacy Electronically, [facility], Partial fill upon patient request if the prescription is for a schedule II opioid... Start Date: 03/14/23 Status: Ordered Lupron Depot 3.75 mg intramuscular kit = 3.75 mg, Intramuscular, Every 28 days, 0 Refills, Maintenance, 02/25/22 12:11:00 EDT, Partial fill upon patient request if the prescription is for a schedule II opioid drug. Start Date: 02/25/22 Status: Ordered morphine 15 mg/8 to 12 hr oral tablet, extended release = 15 mg, By Mouth, Every 12 hours, # 24 tablet, 0 Refills, Maintenance, 03/31/23 14:25:00 EDT, ER Tablet, [facility], Partial fill upon patient request if the prescription is for a schedule II opioid drug., 170.18, cm, 03/31/23 8:45:00 E... Start Date: 03/31/23 Stop Date: 04/07/23 Status: Ordered morphine 15 mg/8 to 12 hr oral tablet, extended release 1 tablet = 15 mg, By Mouth, Every 12 hours, bid for 7 days, # 14 tablet, 0 Refills, Maintenance, 04/16/23 16:48:00 EDT, Partial fill upon patient request if the prescription is for a schedule II opioid drug. Start Date: 04/16/23 Status: Ordered nystatin topical 779004 u/gm powder 1 application, Topically, 2 times [...] Confirmed Active Obese class I Confirmed Active Vital Signs Most recent to oldest [Reference Range]: 1 2 3 4 Height 170 cm (04/16/23 6:52 PM) 170 cm (04/16/23 6:11 AM) 170 cm (04/16/23 3:20 AM) Weight 95.5 kg (04/16/23 6:52 PM) 95.5 kg (04/16/23 6:11 AM) 95.5 kg (04/16/23 3:20 AM) Oxygen Saturation [94-100 %] 98 % (04/16/23 6:52 PM) 98 % (04/16/23 9:55 AM) 99 % (04/16/23 6:11 AM) Pulse Rate [55-90 bpm] 84 bpm (04/16/23 6:52 PM) 80 bpm (04/16/23 9:55 AM) 56 bpm (04/16/23 6:11 AM) Body Mass Index [18.5-24.99 kg/m2] 33.04 kg/m2 *>HHI* (04/16/23 6:11 AM) 33.04 kg/m2 *>HHI* (04/16/23 3:20 AM) 33.04 kg/m2 *>HHI* (04/16/23 12:31 AM) Blood Pressure [90-138/55-84 mm Hg] 127/82mm Hg (04/16/23 6:52 PM) 117/76mm Hg (04/16/23 9:55 AM) 108/47mm Hg (04/16/23 6:11 AM) Respiratory Rate [16-30 br/min] 18 br/min (04/16/23 6:52 PM) 18 br/min (04/16/23 5:31 PM) 18 br/min (04/16/23 4:28 PM) 18 br/min (04/16/23 4:28 PM) Temperature [96.8-100.4 DegF] 98.4 DegF (04/16/23 6:52 PM) 99.6 DegF (04/16/23 9:55 AM) 98.0 DegF (04/16/23 3:20 AM) Mode of Delivery (Oxygen) Room air (04/16/23 6:52 PM) Room air (04/16/23 9:55 AM) Room air (04/16/23 6:11 AM) Blood pressure sites Arm, left (04/16/23 6:52 PM) Arm, left (04/16/23 9:55 AM) Arm, left (04/16/23 6:11 AM) Temperature Route Oral (04/16/23 6:52 PM) Oral (04/16/23 9:55 AM) Oral (04/16/23 3:20 AM) Dry Weight 95.5 kg (04/16/23 6:52 PM) 95.5 kg (04/16/23 6:11 AM) 95.5 kg (04/16/23 3:20 AM) Social History Social History Type Response Smoking Status 10 or more cigarette s (1/2 pack or more)/day in last 30 days entered on: 12/14/21 Sex Note * Pradeep Cochran RN: PERFORM, SIGN, VERIFY Event Display: Case Management Discharge Plan Authored Date: [id number] Patient: JO ANN LEDESMA Age: 42 years Sex: Female : 1980 Associated Diagnoses: None Author: Pradeep Cochran RN Discharge Plan Case Management Discharge Plan : Case Management Discharge Plan Data 04/16/2023 12:09 EDT Discharge Level of Care at Discharge senior living facility Discharge Nursing Homes/Rehab Facilities [facility] Discharge Transportation Arranged [facility] [address] [place] [phone] Discharge Arranged Transport Date/Time 04/16/2023 16:30 Mode of Transportation Arranged Ambulance Name of Agency #1 [facility] Agency Director Of Casino #1 intake Service Categories #1 Occupational Therapy, Physical Therapy, Senior Living Service Start Date and Time #1 04/16/2023 16:30 Service Comments #1 Patient will be transported to [facility] by [facility] ambulance booked for 4:30pm Name of Person Notified of Transfer Patient Phone Number of Receiving Facility Patient Care team information Care Team Personnel Name: Chitra Gomez RN Position: [facility] RN Member Role: Primary Care Nurse Name: Geni Davis RN Position: S RN Member Role: Primary Care Nurse Name: Gertrudis Mandujano RN Position: S RN Member Role: Primary Care Nurse Name: Germán Robins Jr, RN Position: S RN Member Role: Primary Care Nurse Name: Todd Rice NP Position: Reference Physician Member Role: PCP Address: Address: [address] [place] [address]- Name: Shaka Sampson Position: [facility] RN Member Role: Primary Care Nurse Name: Valeri Langston RN Position: [facility] RN Member Role: Primary Care Nurse Name: Shiva Pinto RN Position: [facility] RN Member Role: Primary Care Nurse Name: Harmony Tapia RN Position: [facility] RN Member Role: Primary Care Nurse Name: Lauryn Cavazos RN Position: [facility] RN Member Role: Primary Care Nurse Name: Marizol Doherty RN, I Position: [facility] RN Member Role: Primary Care Nurse [facility] Attending Position: [facility] ED Attendings Patient Name: Tamara Serrano Position: [facility] ED TA [facility] Name: Rosalia Cavanaugh RN Position: [facility] ED RN W/OE and Tasks Member Role: Patient Care Provider Name: Josy Stevens MD Position: [facility] ED Medicine MD Member Role: ED Attending Physician Address: Address: [address] [place] [address] [place] [address]- Care Team Related Persons Name: AMALIA LEDESMA Address: home [place], [place] Name: AMPARO LEDESMA Address: home [address] [place] [address] Name: JAN DUNCAN Address: home [address] [place] [address] Name: CHELLE GIL Address: home [address] [place] [address]
--- OUTSIDE RECORDS SUMMARY | 2024-06-29 06:39 | XMS_ITS | Continuity of Care Document ---
Author Organization [facility] ter Address [address] [place] [id number]- Care Team Providers Care Nurse Orthopedic Name Role Phone Dwayne MOE, Todd Leyva Primary Care Physician Encounter [facility] Date(s): 03/27/23 - 03/31/[address] [address]- Encounter Diagnosis Acute exacerbation of chronic low back pain(Final) - 03/26/23 Discharge Disposition: A-Transfer VNA/Home Health Attending Physician: Charli Tobias MD Admitting Physician: Kirk Golden MD Referring Physician: Not on Staff, Referring [...] 0 Refills, Maintenance, 03/31/23 14:25:00 EDT, Tablet, [facility], Partial fill upon patient request if the prescription is for a schedule II opioid drug., 170.18, cm, 03/31/23 8:45:00 EDT, H... Start Date: 03/31/23 Status: Ordered Dilaudid 2 mg oral tablet 2 mg, Tablet, By Mouth, Every 4 hours, PRN for Pain , Moderate, Routine, 03/27/23 12:36:00 EDT Start Date: 03/27/23 Stop Date: 04/01/23 Status: Discontinued Dilaudid 4 mg oral tablet = 4 mg, By Mouth, Every 4 hours, PRN Pain , Severe, for 7 days, # 42 tablet, 0 Refills, Acute 04/07/23 14:22:00 EDT, 03/31/23 14:22:00 EDT, Tablet, [facility], Partial fill upon patientrequest if the prescription is for a schedule II op... Start Date: 03/31/23 Stop Date: 04/07/23 Status: Ordered docusate sodium 100 mg oral capsule 1 capsule = 100 mg, By Mouth, Daily, PRN as needed for constipation, 0 Refills, Maintenance, 12/13/14 15:08:05 EDT, Capsule Start Date: 12/13/14 Status: Ordered Flexeril 10 mg oral tablet 5 mg, Tablet, By Mouth, 03/31/23 15:00:00 EDT Start Date: 03/31/23 Stop Date: 03/31/23 Status: Completed folic acid 1 mg oral tablet 1 mg, 1, tablet, By Mouth, Daily, Maintenance, 12/14/21 13:38:00 EDT, Partial fill upon patient request if the prescription is for a schedule II opioid drug. Start Date: 12/14/21 Status: Ordered gabapentin 100 mg oral capsule 100 mg, By Mouth, 3 times a day, # 90 tablet, Refills 0, Tot. Refills 0, Maintenance, 03/31/23 14:25:00 EDT, Route to Pharmacy Electronically, [facility], Partial fill upon patient request if the prescription is for a schedule II opioid... Start Date: 03/31/23 Status: Ordered gabapentin 100 mg oral capsule 100 mg, Capsule, By Mouth, 03/31/23 15:00:00 EDT Start Date: 03/31/23 Stop Date: 03/31/23 Status: Completed ibuprofen 800 mg oral tablet 800 mg, By Mouth, Every 8 hours, # 90 tablet, Refills 0, Tot. Refills 0, Maintenance, 03/14/23 16:06:00 EDT, Route to Pharmacy Electronically, [facility], Partial fill upon patient request [...] Refills, Maintenance, 03/31/23 14:25:00 EDT, ER Tablet, [facility], Partial fill upon patient request if the prescription is for a schedule II opioid drug., 170.18, cm, 03/31/23 8:45:00 E... Start Date: 03/31/23 Stop Date: 04/07/23 Status: Ordered MorPHINE CR Tablet 15 mg, CR Tablet, By Mouth, Hold for: SEDATION, 03/31/23 16:00:00 EDT Start Date: 03/31/23 Stop Date: 03/31/23 Status: Completed nystatin topical [id number] u/gm powder 1 application, Topically, 2 times a day, PRN, Maintenance, 12/14/21 13:40:00 EDT, Powder, Partial fill upon patient request if the prescription is for a schedule II opioid drug. Start Date: 12/14/21 Status: Ordered senna 187 mg oral tablet [...] Confirmed Active Obese class I Confirmed Active Results Radiology Reports * Exam Date Time Procedure Performing Provider Status 03/28/23 6:10 AM MRI Thoracic Spine W/O Contrast Cy Nails; Puja (Verified) Notes: (MRI Thoracic Spine W/O Contrast) Reason For Exam: radiculopathy, pain, urinary retention;Other: RESULT: MRI Thoracic Spine W/O Contrast MRI Cervical Spine W/O Contrast, MRI Thoracic Spine W/O Contrast Reason: Other:; radiculopathy, pain, urinary retention; Clinical Question(s): Fracture Dislocation;Order Comment: Please see Reference Text for complete list of contraindications Fracture/Dislocation TECHNIQUE: MRI of the cervical and thoracic spine was performed without intravenous contrast utilizing sagittal T1, sagittal T2, sagittal STIR, and axial T2-weighted sequences of the cervical and thoracic spine, axial T2* of the cervical spine, and axial T1-weighted sequence of the thoracic spine. COMPARISON: No direct comparison. Correlation to MRI lumbar spine 03/26/2023. FINDINGS: LOCALIZER: No additional findings on limited localizer images. There is a normal complement of vertebral bodies. CERVICAL SPINE: Image quality is degraded by mild motion artifact on multiple images, which may obscure fine detail. ALIGNMENT, VERTEBRAE, MARROW, AND DISCS: Alignment is normal. Vertebral body heights are preserved.There is no significant marrow signal abnormality. Intervertebral discs are desiccated, with mild loss of disc space at C6-7. POSTERIOR FOSSA AND CORD: Visualized posterior fossa is normal. The cervical cord is normal in signal and caliber. PARASPINAL TISSUES: Mild prominence of bilateral level 2 lymph nodes, likely reactive. Soft tissuesof the neck are otherwise unremarkable. Major cervical flow voids are present. DETAILED FINDINGS BY LEVEL: C2-C3: Bilateral facet hypertrophy. No significant canal stenosis or neural foraminal narrowing. C3-C4: Broad-based disc bulge, bilateral facet hypertrophy, and left greater than right uncovertebral spurring. No significant central stenosis or right neural foraminal narrowing. Mild left neural foraminal narrowing. C4-C5: Broad-based disc bulge with left paracentral protrusion, with left greater than right uncovertebral spurring and mild facet hypertrophy. Mild left- sided central stenosis. Mild to moderate leftand no significant right neural foraminal narrowing. C5-C6: Broad-based disc bulge with left paracentral protrusion, with left greater than right uncovertebral spurring and mild facet hypertrophy. Minimal left-sided central stenosis. Mild left and no significant right neural foraminal narrowing. C6-C7: Broad-based disc osteophyte complex with mildly). Mild central stenosis. No significant neural foraminal narrowing. Right perineural cyst. C7-T1: No significant canal stenosis or neural foraminal narrowing. THORACIC SPINE: ALIGNMENT, VERTEBRAE, MARROW, AND DISCS: Alignment is normal. Vertebral body heights are preserved.There is no significant marrow signal abnormality. There is scattered mild loss of disc space in the thoracic spine, greatest at T2-3 and T11-12. CORD: The thoracic cord is normal in signal and contour. PARASPINAL TISSUES: Visualized paraspinal soft tissues are unremarkable. DETAILED FINDINGS BY LEVEL: T1-T2: No significant canal stenosis or neural foraminal narrowing. T2-T3: Small right paracentral protrusion No significant canal stenosis or neural foraminal narrowing. T3-T4: Tiny central protrusion. No significant canal stenosis or neural foraminal narrowing. T4-T5: No significant canal stenosis or neural foraminal narrowing. T5-T6: No significant canal stenosis or neural foraminal narrowing. T6-T7: No significant canal stenosis or neural foraminal narrowing. T7-T8: Small right paracentral protrusion. No significant canal stenosis or neural foraminal narrowing. T8-T9: Minimal broad-based disc bulge. No significant canal stenosis or neural foraminal narrowing. T9-T10: Minimal broad-based is bulge and mild left greater than right facet hypertrophy. No significant canal stenosis or neural foraminal narrowing. T10-T11: Minimal broad-based disc bulge and mild bilateral facet hypertrophy. No significant canal stenosis or neural foraminal narrowing. T11-T12: Broad-based disc osteophyte complex and mild bilateral facet hypertrophy. Minimal central stenosis. No significant neural foraminal narrowing. T12-L1: Small represent protrusion. No significant canal stenosis or neural foraminal narrowing. IMPRESSION: 1. No high-grade stenosis, cord compression, or cord signal abnormality at any level. 2. Mild degenerative changes of the spine as detailed by level above. WSN: [id number] Ordering Physician: Rika Bravo Dictated By: Rika Cain MD Dictated Date/Time: 03/28/23 8:41 am Reviewed By: Rika Cain MD Signed By: Rika Cain MD Signed Date/Time: 03/28/23 8:41 am Transcribed By: DEYSI Transcribed Date/Time: 03/28/23 8:30 am * Exam Date Time Procedure Performing Provider Status 03/28/23 6:10 AM MRI Cervical Spine W/O Contrast Cy Nails; Puja (Verified) Notes: (MRI Cervical Spine W/O Contrast) Reason For Exam: radiculopathy, pain, urinary retention;Other: RESULT: MRI Cervical Spine W/O Contrast MRI Cervical Spine W/O Contrast, MRI Thoracic Spine W/O Contrast Reason: Other:; radiculopathy, pain, urinary retention; Clinical Question(s): Fracture Dislocation;Order Comment: Please see Reference Text for complete list of contraindications Fracture/Dislocation TECHNIQUE: MRI of the cervical and thoracic spine was performed without intravenous contrast utilizing sagittal T1, sagittal T2, sagittal STIR, and axial T2-weighted sequences of the cervical and thoracic spine, axial T2* of the cervical spine, and axial T1-weighted sequence of the thoracic spine. COMPARISON: No direct comparison. Correlation to MRI lumbar spine 03/26/2023. FINDINGS: LOCALIZER: No additional findings on limited localizer images. There is a normal complement of vertebral bodies. CERVICAL SPINE: Image quality is degraded by mild motion artifact on multiple images, which may obscure fine detail. ALIGNMENT, VERTEBRAE, MARROW, AND DISCS: Alignment is normal. Vertebral body heights are preserved.There is no significant marrow signal abnormality. Intervertebral discs are desiccated, with mild loss of disc space at C6-7. POSTERIOR FOSSA AND CORD: Visualized posterior fossa is normal. The cervical cord is normal in signal and caliber. PARASPINAL TISSUES: Mild prominence of bilateral level 2 lymph nodes, likely reactive. Soft tissuesof the neck are otherwise unremarkable. Major cervical flow voids are present. DETAILED FINDINGS BY LEVEL: C2-C3: Bilateral facet hypertrophy. No significant canal stenosis or neural foraminal narrowing. C3-C4: Broad-based disc bulge, bilateral facet hypertrophy, and left greater than right uncovertebral spurring. No significant central stenosis or right neural foraminal narrowing. Mild left neural foraminal narrowing. C4-C5: Broad-based disc bulge with left paracentral protrusion, with left greater than right uncovertebral spurring and mild facet hypertrophy. Mild left- sided central stenosis. Mild to moderate leftand no significant right neural foraminal narrowing. C5-C6: Broad-based disc bulge with left paracentral protrusion, with left greater than right uncovertebral spurring and mild facet hypertrophy. Minimal left-sided central stenosis. Mild left and no significant right neural foraminal narrowing. C6-C7: Broad-based disc osteophyte complex with mildly). Mild central stenosis. No significant neural foraminal narrowing. Right perineural cyst. C7-T1: No significant canal stenosis or neural foraminal narrowing. THORACIC SPINE: ALIGNMENT, VERTEBRAE, MARROW, AND DISCS: Alignment is normal. Vertebral body heights are preserved.There is no significant marrow signal abnormality. There is scattered mild loss of disc space in the thoracic spine, greatest at T2-3 and T11-12. CORD: The thoracic cord is normal in signal and contour. PARASPINAL TISSUES: Visualized paraspinal soft tissues are unremarkable. DETAILED FINDINGS BY LEVEL: T1-T2: No significant canal stenosis or neural foraminal narrowing. T2-T3: Small right paracentral protrusion No significant canal stenosis or neural foraminal narrowing. T3-T4: Tiny central protrusion. No significant canal stenosis or neural foraminal narrowing. T4-T5: No significant canal stenosis or neural foraminal narrowing. T5-T6: No significant canal stenosis or neural foraminal narrowing. T6-T7: No significant canal stenosis or neural foraminal narrowing. T7-T8: Small right paracentral protrusion. No significant canal stenosis or neural foraminal narrowing. T8-T9: Minimal broad-based disc bulge. No significant canal stenosis or neural foraminal narrowing. T9-T10: Minimal broad-based is bulge and mild left greater than right facet hypertrophy. No significant canal stenosis or neural foraminal narrowing. T10-T11: Minimal broad-based disc bulge and mild bilateral facet hypertrophy. No significant canal stenosis or neural foraminal narrowing. T11-T12: Broad-based disc osteophyte complex and mild bilateral facet hypertrophy. Minimal central stenosis. No significant neural foraminal narrowing. T12-L1: Small represent protrusion. No significant canal stenosis or neural foraminal narrowing. IMPRESSION: 1. No high-grade stenosis, cord compression, or cord signal abnormality at any level. 2. Mild degenerative changes of the spine as detailed by level above. WSN: [id number] Ordering Physician: Rika Bravo Dictated By: Rika Cain MD Dictated Date/Time: 03/28/23 8:41 am Reviewed By: Rika Cain MD Signed By: Rika Cain MD Signed Date/Time: 03/28/23 8:41 am Transcribed By: DEYSI Transcribed Date/Time: 03/28/23 8:30 am * Exam Date Time Procedure Performing Provider Status 03/26/23 9:25 PM MRI Lumbar Spine W/O Contrast Alexsander Sanz (Verified) Notes: (MRI Lumbar Spine W/O Contrast) Reason For Exam: Low back pain, cauda equina syndrome suspected;Other: RESULT: MRI Lumbar Spine W/O Contrast MRI Lumbar Spine W/O Contrast INDICATION: Back pain and episodes of incontinence. TECHNIQUE: MRI of the lumbar spine was performed without intravenous contrast utilizing sagittal T1, sagittal T2, sagittal STIR, axial T1, and axial T2- weighted sequences. COMPARISON: MRI, 03/08/2023. FINDINGS: NUMBERING: The study assumes 5 [id number]-[id number] lumbar type vertebral bodies. ALIGNMENT, VERTEBRAE, MARROW, AND DISCS: Vertebral body height, curvature, and alignment. There is disc desiccation from L2-S1 with multilevel disc space narrowing, severe at L5-S1. There is also disc space narrowing at T11-12. Small multilevel anterior osteophytes are noted. Minor Modic type II endplate changes are seen at L5-S1. Remaining bone marrow signal is within normal limits. CONUS: The conus is normal in signal and contour, with normal level of termination at L1. PARASPINAL TISSUES: The paraspinal soft tissues are unremarkable. DETAILED FINDINGS BY LEVEL: L1-L2: Tiny right paracentral protrusion is seen without canal or neural foraminal stenosis. L2-L3: There is diffuse disc bulging asymmetric to the right with central annular tear causing mildcanal stenosis and crowding of the descending right L3 nerve root. The neural foramen are patent. L3-L4: There is diffuse disc bulging with superimposed central protrusion slightly asymmetric to the right as well as posterior ligamentous thickening. This results in mild canal stenosis and crowding of the descending right L4 nerve root in the subarticular recesses. There is minimal bilateral neural foraminal stenosis. L4-L5: There is diffuse disc bulging with posterior annular tear as well as posterior ligamentous thickening and facet spurring. There is also slight prominence of the dorsal epidural fat. Overall, this results in mild canal stenosis and potential compression of the descending left L5 nerve root inthe subarticular recess. There is mild bilateral neural foraminal stenosis, left greater than right. L5-S1: There is disc osteophyte with superimposed central protrusion as well as bilateral facet spurring causing mild canal stenosis. Marginal osteophyte contributes to mild right and mild to moderate left neural foraminal stenosis. There may be mass effect on the extraforaminal left L5 nerve root due to marginal osteophyte. IMPRESSION: Mild multilevel degenerative changes are seen as described, overall similar to 03/08/2023. Please seedetailed levels above. Similar preliminary report provided by [facility]. WSN: [id number] Ordering Physician: Stefani Reyes Dictated By: Val Valle MD Dictated Date/Time: 03/27/23 8:37 am Reviewed By: Val Valle MD Signed By: Val Valle MD Signed Date/Time: 03/27/23 8:37 am Transcribed By: DEYSI Transcribed Date/Time: 03/27/23 8:32 am Vital Signs Most recent to oldest [Reference Range]: 1 2 3 4 Height 170.18 cm (03/31/23 8:30 AM) 170.18 cm (03/30/23 7:57 PM) 170.18 cm (03/30/23 4:30 PM) Weight 96.3 kg (03/27/23 5:12 AM) Oxygen Saturation [94-100 %] 100 % (03/31/23 8:30 AM) 99 % (03/30/23 7:57 PM) 98 % (03/30/23 4:30 PM) Pulse Rate [55-90 bpm] 83 bpm (03/31/23 8:30 AM) 70 bpm (03/30/23 7:57 PM) 62 bpm (03/30/23 4:30 PM) Body Mass Index [18.5-24.99 kg/m2] 33.25 kg/m2 *>HHI* (03/27/23 5:12 AM) Blood Pressure [90-138/55-84 mm Hg] 137/88mm Hg (03/31/23 8:30 AM) 118/84mm Hg (03/30/23 7:57 PM) 128/90mm Hg (03/30/23 4:30 PM) Respiratory Rate [16-30 br/min] 20 br/min (03/31/23 4:30 PM) 20 br/min (03/31/23 4:30 PM) 20 br/min (03/31/23 4:30 PM) 20 br/min (03/31/23 4:30 PM) Temperature [96.8-100.4 DegF] 97.9 DegF (03/31/23 8:30 AM) 97.9 DegF (03/30/23 7:57 PM) 97.9 DegF (03/30/23 4:30 PM) Mode of Delivery (Oxygen) Room air (03/31/23 8:30 AM) Room air (03/30/23 7:57 PM) Room air (03/30/23 4:30 PM) Blood pressure sites Arm, right (03/30/23 7:57 PM) Arm, right (03/29/23 8:30 PM) Arm, right (03/29/23 4:35 PM) Temperature Route Oral (03/31/23 8:30 AM) Oral (03/30/23 7:57 PM) Oral (03/30/23 4:30 PM) Dry Weight 96.3 kg (03/27/23 5:12 AM) Social History Social History Type Response Smoking Status 10 or more cigarette s (1/2 pack or more)/day in last 30 days entered on: 12/14/21 Sex Admission evaluation note * Mira Cutler DO: PERFORM, MODIFY, MODIFY Event Display: Admission Note Authored Date: [id number] Patient: ??JO ANN LEDESMA ? Age:??42 Years?Sex:??Female?:??1980?? Chief Complaint/Reason for Consultation Hx of degenradive disc disease, Coming in from PCP, C/o 06/09 back pain. Recent d/c from inpatient 10days ago. Multiples episodes of incontinence d/t back pain History of Present Illness Patient is a 42-year-old female with history of lower back pain, bipolar disorder, hyperlipidemia who came in to the emergency room via EMS who present low back pain with new symptoms of urinary incontinence and saddle anesthesia.? Recent hospitalization with discharge on the with a prednisone taper and new pain regimen.?? She says when she started tapering the prednisone her pain returned significantly.?? She also notes she was having numbness when she wiped and episodes of urinary incontinence which did not realize shewas urinating.?? She also had an episode of numbness and weakness in her legs, worse on the right.?? PCP recommended she be evaluated for cauda equina.?? She has not had any loss of control of her bowels.?? She is also complaining of a little bit of abdominal pain in left lower quadrant.?? She doesnot have any chest pain, shortness of breath,??upper respiratory symptoms, diarrhea.?? She said??she ran out of her morphine??on Thursday of this week. ?? ED course: Hemodynamically stable on presentation.?? Labs are notable for leukocytosis of 12.0.?? UA was bland.?? MRI was obtained due to concerns of cauda equina, but there is no evidence of cauda equina. Review of Systems A full review of systems was completed and is otherwise negative except as mentioned in history of present illness. Objective Vital Signs?? Temperature: 97.8 DegF (03/26/23 19:46:00) Temperature Route: Oral (03/26/23 19:46:00) Pulse Rate: 71 bpm (03/26/23 22:49:00) Respiratory Rate: 16 br/min (03/26/23 22:50:00) Systolic Blood Pressure: 134 mm Hg (03/26/23 22:49:00) Diastolic Blood Pressure: 78 mm Hg (03/26/23 22:49:00) Blood pressure sites: Arm, right (03/26/23 22:49:00) Oxygen Saturation: 100 % (03/26/23 22:49:00) Mode of Delivery (Oxygen): Room air (03/26/23 22:49:00) Early Warning Score: 2 (03/27/23 00:40:59) ? Physical Exam General: Patient in no acute distress?? HEENT: normocephalic, atraumatic, Respiratory: bilateral equal air entry, clear to auscultation with no wheezes or crackles. Adequaterespiratory rate and effort on room air.?? CVS: regular rate and rhythm, S1 and S2 present, no murmurs, rubs or gallops. Abdomen: soft, non tender, non distended, bowel sounds present, no organomegaly.?? Extremities: no cyanosis, . No edema noted b/l.?? Neuro: alert and oriented x3. ??5/5??muscle strength??lower and upper??extremities bilaterally.?? 2+ out of 4 reflexes bilaterally. ??Sensation intact??lower extremities bilaterally.?? Normal [id number] test. Derm: No signs of infection, surrounding skin is intact with no evidence of erythema, no purulent discharge, no tenderness?? Psych: Normal mood and affect?? Assessment/Plan Patient is a 42-year-old female with history of lower back pain, bipolar disorder, hyperlipidemia who came in to the emergency room via EMS who present low back pain with new symptoms of urinary incontinence and saddle anesthesia who had cauda equina ruled out via MRI who is admitted for back pain controll. ?? Acute on chronic lower back pain L foot paresthesia + L leg/foot weakness; suspected lumbar radiculopathy Recent admission for??lower back pain,??largely the same presentation. Reports pain??returned after??prednisone taper.?? Also ran out of morphine earlier this week. Question if new pain is hyperalgesia from opioid use/ opioid withdrawals from her previous prescription. -??PO morphine 15mg ER q12h and PO morphine 7.5mg IR??q4 PRN for breakthrough pain ??- Tylenol 650 mg every 4 hours - Ibuprofen 800 mg every 8 hours - K-pads and ice for further management of pain - PT + encourage ambulation?? -??PMR consult - consider outpatient referral to pain specialist ?? Leukocytosis Likely from recent steroid use. - continue to monitor ?? Quality Measures: Code: full Diet: regular DVT: Lovenox ?? Patient discussed with attending physician, Dr. Chico Cutler, DO Internal Medicine PGY2 ?? Histories Allergies Allergies ?(Active and Proposed Allergies [...] oral tablet, extended release)?15?Milligram?By Mouth?Every 12 hours Nystatin Topical (nystatin topical 289106 u/gm powder)?1?ranjan?Topically?2 times a day?PRN Senna (senna 187 mg oral tablet)?1?tab(s)?8.6?Milligram?By Mouth?Daily?as needed?as needed for constipation Topiramate (topiramate 100 mg oral tablet)?3 tablets?By Mouth?Daily at bedtime Trazodone (traZODone 100 mg oral tablet)?2 tablets?By Mouth?Daily at bedtime ? Inpatient Medications Medications (8) Active SCHEDULED: (1) NaCl 0.9% Flush 3ml (NaCL 0.9% Flush) ??3 mL, IV Push, Every 8 hours CONTINUOUS: (0) PRN: (7) Acetaminophen 325 mg Tablet (Acetaminophen Tablet) ??650 mg, By Mouth, Every 4 hours Dextromethorphan-Guaifenesin 20 mg-200 mg/10 mL Liqu UD (Robitussin DM Liquid) ??10 mL, By Mouth, Every 4 hours Melatonin 3 mg Tablet (Melatonin Tablet) ??3 mg, By Mouth, Daily at bedtime NaCl 0.9% Flush 3ml (NaCL 0.9% Flush) ??3 mL, IV Push, Every 8 hours Polyethylene Glycol 17 Gm Powder (MiraLax Powder) ??17 Gm 1 pack/packet, By Mouth, Daily Senna 8.6 mg / Docusate 50 mg tablet (Docusate/Senna Tablet) ??1 tablet, By Mouth, 2 times a day Simethicone 80 mg Chewable Tablet (Simethicone Tablet) ??80 mg, Chew, 3 times a day ? Results Recent Labs BLOOD COUNT & DIFF WBC 12.0 k/mm3 (High)?? 03/26/2023 17:08 RBC 4.43 m/mm3 ()?? 03/26/2023 17:08 Hgb 13.5 Gm/dL ()?? 03/26/2023 17:08 Hct 40.9 % ()?? 03/26/2023 17:08 MCV 92.3 femtoliters ()?? 03/26/2023 17:08 MCH 30.5 pg ()?? 03/26/2023 17:08 MCHC 33.0 g/dL ()?? 03/26/2023 17:08 Platelet Count 296 k/mm3 ()?? 03/26/2023 17:08 RDW-SD 44.7 femtoliters ()?? 03/26/2023 17:08 MPV 10.3 femtoliters ()?? 03/26/2023 17:08 Nucleated RBC (Automated) 0.0 #/100 WBC'S ()?? 03/26/2023 17:08 Abs. NRBC 0.0 k/mm3 ()?? 03/26/2023 17:08 Abs. Neut 8.6 k/mm3 (High)?? 03/26/2023 17:08 Abs. Lymph 2.6 k/mm3 ()?? 03/26/2023 17:08 Abs. Waller 0.6 k/mm3 ()?? 03/26/2023 17:08 Abs. Eo 0.1 k/mm3 ()?? 03/26/2023 17:08 Abs. Baso 0.0 k/mm3 ()?? 03/26/2023 17:08 Neut % 71.8 % ()?? 03/26/2023 17:08 Lymph % 21.7 % ()?? 03/26/2023 17:08 Waller % 4.7 % ()?? 03/26/2023 17:08 Eos % 0.8 % ()?? 03/26/2023 17:08 Baso % 0.3 % ()?? 03/26/2023 17:08 Imm Gran 0.7 % ()?? 03/26/2023 17:08 Abs. Imm Gran 0.1 k/mm3 ()?? 03/26/2023 17:08 ?? CHEM GENERAL Sodium 141 mmol/L ()?? 03/26/2023 17:08 Potassium 4.3 mmol/L ()?? 03/26/2023 17:08 Chloride 107 mmol/L ()?? 03/26/2023 17:08 Bicarbonate Level 21 mmol/L (Low)?? 03/26/2023 17:08 Anion Gap 13 ()?? 03/26/2023 17:08 Glucose Level 85 mg/dL ()?? 03/26/2023 17:08 BUN 15 mg/dL ()?? 03/26/2023 17:08 Creatinine-Blood 0.6 mg/dL ()?? 03/26/2023 17:08 Estimated GFR Creatinine 114 ML/MIN/1.73 M2 ()?? 03/26/2023 17:08 Calcium 9.7 mg/dL ()?? 03/26/2023 17:08 ?? COAG INR 1.0 ()?? 03/26/2023 17:08 Protime (PT) 10.1 seconds ()?? 03/26/2023 17:08 APTT 25.6 seconds ()?? 03/26/2023 17:08 ?? UA/URINALYSIS Appear/Color, Urine COLORLESS ()?? 03/26/2023 18:02 Specific [place], Urine 1.010 ()?? 03/26/2023 18:02 pH, Urine 7.0 ()?? 03/26/2023 18:02 Albumin, Urine NEGATIVE ()?? 03/26/2023 18:02 Glucose, Urine NEGATIVE ()?? 03/26/2023 18:02 Ketones, Urine NEGATIVE ()?? 03/26/2023 18:02 Bilirubin, Urine NEGATIVE ()?? 03/26/2023 18:02 Hemoglobin, Urine NEGATIVE ()?? 03/26/2023 18:02 Nitrite, Urine NEGATIVE ()?? 03/26/2023 18:02 Leukocyte, Urine NEGATIVE ()?? 03/26/2023 18:02 Urobilinogen NORMAL mg/dL ()?? 03/26/2023 18:02 WBC's, Urine NONE SEEN /HPF ()?? 03/26/2023 18:02 RBC's, Urine NONE SEEN /HPF ()?? 03/26/2023 18:02 Squamous Epith 1 /HPF ()?? 03/26/2023 18:02 Mucus SLIGHT /LPF ()?? 03/26/2023 18:02 Hold Urine Culture Testing available 48 hours from time of collection. ()?? 03/26/2023 18:02 ? * Kirk Golden MD: PERFORM Event Display: Admission Note Authored Date: [id number] ??Attending Attestation:?? I have seen and evaluated this patient. ?? I have discussed the case and its management with the resident and agree with the findings and rin documented in the resident's note. ??I ??will continue to provide care to this patient till 7 AMof the admitting date. ? 42-year-old female with a past medical history of lower back pain, bipolar disorder, hyperlipidemiawho did come with a complaint of worsening of low back pain with concern of her urinary incontinence and saddle anesthesia. ?? MRI of the back is done that is not concerning of cauda equina syndrome/cord compression/epidural abscess??as per the wet read. ??Official report is pending. ?? We will optimize the medication for the back pain. ??We will follow-up with the PMR evaluation. ??We will follow the official report of the MRI. ?? We will continue with the neuro check every 4 hours and bladder scan. Hospital Progress note * Inocencio LLOYD, Cy Massey: PERFORM Event Display: Progress Note Hospital Authored Date: [id number] Patient: ??JO ANN LEDESMA ? Age:??42 Years?Sex:??Female?:??1980?? Chief Complaint Hx of degenradive disc disease, Coming in from PCP, C/o 06/09 back pain. Recent d/c from inpatient 10days ago. Multiples episodes of incontinence d/t back pain History of Present Illness Seen and examined at bedside. Pt sitting up, appears comfortable but states her pain is unchanged. States she is being discharged today. Had been accepted to local SNF but patient declined referral and wants to go home. Supervision level with PT. MRI C, T and L spine reviewed. Bowels are moving and no longer retaining urine. Review of Systems 14 point review of systems negative except as noted above in HPI. Physical Exam Vitals & Measurements T:??97.9?F?? HR:??83??(Peripheral)?? RR:??20?? BP:??137/88?? SpO2:??100%?? HT:??170.18??cm?? WT:??96.3??kg?? BMI:??33.25?? Gen: Alert, oriented, in NAD. HEENT: MMM, tracking bilat, no JVD Exts: trace pedal edema Moving all exts equally.?? Speech clear and appropriate, flat affect?? Assessment/Plan 42yo F with h/o chronic pain, recent flare up of back pain which has been refractory to treatment thus far admitted 2nd time this month for flare up of back pain. Pt does not have a sensory level on exam and no UMN signs on exam. ?? Thoracic and cervical spine??MRIs??do not explain this presentation.?? I am unable to explain her urinary retention but has since resolved. Essentially nothing over the years has provided much benefit. Chronic opioid therapy is unlikely romeo in her best interest. Will need close follow up. ?? Recommendations: ? Continue cyclobenzaprine if it is??beneficial She is on low-dose??Neurontin 100mg tid: Currently she seems to have very minimal neuropathic pain??so I would not increase it.?? If significant??neuropathic pain seems??to be an issue??then I would increase it to 300 mg three times a day. ?? She has an outpatient??pain medicine??appointment??on May 01.? Continue scheduled tylenol. ?? No longer retaining urine. ? Disposition: Home??as soon as pain??control is acceptable for discharge.?? It may be necessary to discharge her??with significant pain remaining as we do not have a lot??further to offer her. ?? Problem List/Past Medical History Ongoing Anxiety Chronic low back pain Depression GERD (gastroesophageal reflux disease) Morbid obesity Obese class I Stress incontinence Procedure/Surgical History No qualifying data available. Hospital Medications Medications (26) Active SCHEDULED: (12) Acetaminophen 325 mg Tablet (Acetaminophen Tablet) ??975 mg, By Mouth, Every 8 hours Atorvastatin 10 mg Tablet (atorvastatin 10 mg oral tablet) ??10 mg, By Mouth, Daily at bedtime Cyclobenzaprine 10 mg Tablet (Flexeril 10 mg oral tablet) ??5 mg, By Mouth, 3 times a day Enoxaparin 40 mg Inj (Enoxaparin Inj) ??40 mg 0.4 mL, Subcutaneous Injection, Daily Folic Acid 1 mg Tablet (folic acid 1 mg oral tablet) ??1 mg, By Mouth, Daily Gabapentin 100 mg Capsule (gabapentin 100 mg oral capsule) ??100 mg, By Mouth, 3 times a day Lidocaine 5% Topical Patch (Lidocaine 5% Patch) ??2 each, Topically, Daily MorPHINE 15 mg CR Tablet (MorPHINE CR Tablet) ??15 mg, By Mouth, Every 12 hours NaCl 0.9% Flush 3ml (NaCL 0.9% Flush) ??3 mL, IV Push, Every 8 hours Remove Patch (Remove Lidocaine Patch) ??2 each, Topically, Daily at bedtime Topiramate 100 mg Tablet (Topiramate Tablet) ??300 mg, By Mouth, Daily at bedtime Trazodone 50 mg Tablet (traZODone 50 mg oral tablet) ??50 mg, By Mouth, Daily at bedtime CONTINUOUS: (0) PRN: (14) Dextromethorphan-Guaifenesin 20 mg-200 mg/10 mL Liqu UD (Robitussin DM Liquid) ??10 mL, By Mouth, Every 4 hours HYDROmorphone 2 mg Tablet (Dilaudid 2 mg oral tablet) ??2 mg, By Mouth, Every 4 hours HYDROmorphone 4 mg Tablet (Dilaudid 4 mg oral tablet) ??4 mg, By Mouth, Every 4 hours Ibuprofen 800 mg Tablet (ibuprofen 800 mg oral tablet) ??800 mg, By Mouth, Every 8 hours Ketorolac 30 mg/mL Inj (Ketorolac Inj) ??15 mg 0.5 mL, IV Push Slowly, Every 6 hours Lactulose 20 Gm/30mL Syrup (lactulose 10 gm/15 ml oral syrup) ??20 Gm 30 mL, By Mouth, Daily Melatonin 3 mg Tablet (Melatonin Tablet) ??3 mg, By Mouth, Daily at bedtime NaCl 0.9% Flush 3ml (NaCL 0.9% Flush) ??3 mL, IV Push, Every 8 hours nalOXONE ??400mcg/mL Inj (Narcan Inj) ??0.4 mg 1 mL, IV Push Slowly, Once Nystatin Powder ??1 application, Topically, 2 times a day Polyethylene Glycol 17 Gm Powder (MiraLax Powder) ??17 Gm 1 pack/packet, By Mouth, Daily PROCHLORperazine 5mg/ml Inj (Compazine Inj) ??5 mg 1 mL, IV Push, Every 6 hours Senna 8.6 mg / Docusate 50 mg tablet (Docusate/Senna Tablet) ??1 tablet, By Mouth, 2 times a day Simethicone 80 mg Chewable Tablet (Simethicone Tablet) ??80 mg, Chew, 3 times a day Patient Education Titles Back Pain (Acute or Chronic)?? Follow-Up Appointments Added Follow Up ?Time Frame ?Comments Dwayne MOE , Todd Leyva Patient Instructions DIAGNOSIS: Acute exacerbation of chronic low back pain ? TEST RESULTS: MRI was negative for any acute changes in your spine, including no evidence of cauda equina.??Labs were normal. ? Your specific PATIENT CARE INSTRUCTIONS (what to do / when to return): Continue with pain management??as recommended from the hospital??during her prior admission.??You can follow-up with your primary care provider??if you feel that this is not adequate. Continue monitoring your symptoms at home.??If you??have any kind of injury or trauma to your back,??if your pain becomes significantly worse and you are not able to walk,??or if you have complete numbness or tingling??to your legs or when you wipe,??please return to the ED for reevaluation. Call your PCP??in 1 to 2 days to discuss follow-up as needed. Lab Results PM&R Labs WBC:??11.1 k/mm3??High (03/28/23) Platelet Count: 307 k/mm3 (03/28/23) Sodium: 142 mmol/L (03/28/23) BUN: 16 mg/dL (03/28/23) Creatinine-Blood: 0.7 mg/dL (03/28/23) * Shaka Sampson: PERFORM, SIGN, VERIFY Event Display: Progress Note Hospital Authored Date: Patient: JO ANN LEDESMA Age: 42 years Sex: Female : 1980 Associated Diagnoses: None Author: Shaka Sampson Findings Problem Related to Alteration in Comfort : Alteration in Comfort/new 03/30/2023 20:00 EDT Alteration in Comfort Related to Disease process Goals & Outcomes: Comfort Pt will report acceptable level of comfort & pain control, Pt will state importance of adhering to pain strategy regime, Pt will demonstrate necessary skills to manage pain, Non-verbal indicators will indicate comfort/pain control Interventions Implemented: Comfort Assess pain using appropriate pain scale/tools, Assess aggravating factors & prevent them accordingly, Assess alleviating factors & promote them accordingly Goals/Interventions, Comfort Yes Comfort, Problem Start 03/27/2023 5:49 Reviewed plan with, Comfort Patient Patient Progression, Comfort Pt progressing according to plan Comfort, Problem Ongoing Yes . Narrative/Incidental Pt AOx4, VSS, MADDEN. C/o 8/10 back pain, PRN Dilaudid, MSCR per orders w/ some relief. OOB standby assist w/ cane to BR, voiding appropriately. Pt reports BM overnight. No acute changes overnight. Rehab placement pending. Call koch within reach, able to make needs known. See CIS for assessments.. Discharge Information Rehabilitation Discharge : Rehab Discharge Index 03/30/2023 14:05 EDT Walker: distance 10-20 03/28/2023 13:09 EDT Comments on treatment indicated 42 F presents with low back pain with new symptoms of urinary incontinence and saddle anesthesia, admitted for back pain controll. PT for gait training with RW, therapeutic exercises, activities to minimize pain and stair training. Distance pt will ambulate 50 Full chart review completed Yes Hospital course Hospital course Other findings Pt received standing at window with B UE offloading B LE. Provided demonstration andpt education on using step-two pattern with RW to offload some of the weight while ambluating to reduce pain. Pt is a mod complexity eval d/t multi system invovlment. Plan of care PT Gait training, Therapeutic exercise, Functional Activities, Neuromuscular education * Margi PENA, Rika Chaudhry: PERFORM Event Display: Progress Note Hospital Authored Date: Patient: ??JO ANN LEDESMA ? Age:??42 Years?Sex:??Female?:??1980?? Subjective seen at bedside this morning pain about the same, looking forward to working with PT, wants to mobilize more often Review of Systems A full review of systems was completed and is otherwise negative except as mentioned in history of present illness. Objective ?? Physical Exam Temperature?98.5 ?(08:09) Systolic Blood Pressure?120 ?(08:09) Diastolic Blood Pressure?82 ?(08:09) Pulse?77 ?(08:09) SpO2?98 ?(08:09) Respiratory Rate?17 ?(14:53) ? General: Alert, NAD. HEENT: Normocephalic. Respiratory: Clear to auscultation. No wheezing, rales or rhonchi. Cardiovascular: RRR. No murmurs, rubs or gallops. Gastrointestinal: Abdomen soft, non-tender, non-distended. + bowel sounds. Neurologic: Strength against resistance 5/5 BUE, BLE.?? No saddle paresthesia, sensory intact lighttouch and pinprick??in??C/T/L-spine.?? No clonus.?? Ambulated with nurse. Skin: No rashes or lesions. Extremities: No cyanosis or clubbing. No gross deformities. Normal range of motion. Psychiatric: appropriate mood and affect Assessment/Plan Assessment: JO ANN LEDESMA is a 42 yo F with PMHx chronic back pain, recent admission 03/06 - 03/16 for acute back flare (received SI joint injection 03/10, prednisone taper, discharged on morphine 15 ER BID + morphine 7/5 IR PRN)??who presents for recurrent back pain. ?? Acute exacerbation of chronic low back pain (M54.50) Per chart review, has chronic back pain dating back to at least 2013 Recent admission 03/06 - 03/16 for acute back flare (received SI joint injection 03/10, prednisone taper, discharged on morphine 15 ER BID + morphine 7/5 IR PRN) MRI C/T/L-spine??negative??(chronic lumbar Multilevel degenerative changes??without acute cord??compromise) PVR low, not retaining PM&R following ? - morphine 15 ER BID, dilaudid 2 mg Q4H mod OR dilaudid 4 mg PO Q4??severe ? - IV ketorolac trial ? - K pad, scheduled tylenol, flexeril 5 TID, lido patch x 2, gabapentin 100 TID ?? Leukocytosis (D72.829): Unclear??etiology, less likely infectious given SIRS negative.?? Probably secondary to recent steroid use ?? Code Status: Full? Diet: Regular? DVT PPX: Lovenox? Access: PIV OMN: rehab placement ?? I spent a total of 36 minutes today reviewing the chart/medical records, speaking with the patient,formulating and discussing the treatment plan and documenting the findings and encounter. Discussed plan with patient, nursing. ?? [This note was completed via Dragon Dictation. Please do not hesitate to contact the author for clarification of any unintentional error should it be needed.] ?? Consult note * Inocencio LLOYD, Cy Massey: PERFORM, MODIFY Event Display: Consultation Note Authored Date: [id number] Patient: ??JO ANN LEDESMA ? Age:??42 Years?Sex:??Female?:??1980?? Chief Complaint/Reason for Consult Hx of degenradive disc disease, Coming in from PCP, C/o 06/09 back pain. Recent d/c from inpatient 10days ago. Multiples episodes of incontinence d/t back pain History of Present Illness 42yo F with h/o chronic back pain, bipolar d/o, b12 deficiency presented to the ED c/o flare up of her back pain over the last several weeks associated with urinary incontinence and numbness in the perineal area. She denies any constipation or bowel incontinence. She also describes pain radiating down the RIGHT leg associated with numbness in the toes and states her lateral 2 toes feel as if theyare sticking together . She also states the pain is starting to move up into the mid back area between the scapula. Of note, the admission??H&P documents radicular pain and numbness in the LEFT leg but the patient told me today that her current??symptoms are in the RIGHT leg and foot. She has had 2 MRI L spine done this month which did not show any cord compression or cauda equina compression. They did reveal mild multilevel degenerative changes including crowding of the right L3 and rightL4 nerve roots as well as, possible (but not definitive) compression of the left L5 nerve root. There is essentially no central stenosis. She was recently given steroid taper that helped a little . She denies any recent inciting event or trauma that elicited this flare up in her pain. She states I just woke up with the pain and it has gotten progressively worse. Laboratory data was underwhelming and UA was negative. She has tried LESI several times in the past without any benefit. She has tried PT and various medications over the years with only marginal benefit. She was on a pain contract with an outside PCP inthe past and was receiving Dilaudid PO 2- 4mg as needed but is no longer taking this medication. It is unclear if there was a contract violation or other reason it was stopped. KENNETH MAURER was pulled and she has been receiving only??Ativan monthly over the past 2 years. During this admission, she is receiving MS Contin 15mg q 12 hours scheduled, IV Dilaudid for breakthrough pain, and Morphine 7.5mg PO prn for breakthrough. She just had PVR checked by nursing and was 700. [facility] She is indep with ADLs and mobility. She uses a cane occasionally when she has flare up of back pain. Review of Systems 14 point review of systems negative except as noted above in HPI. Physical Exam Vitals & Measurements T:??98.1?F?? HR:??68??(Peripheral)?? RR:??20?? BP:??144/92?? SpO2:??100%?? HT:??170.18??cm?? WT:??96.3??kg?? BMI:??33.25?? Gen: Alert, oriented x 3 in mild discomfort. Patient had difficulty tolerating exam. HEENT: no JVD, PERRL CV: Reg, no murmurs Chest: CTA bilat Abd: +BS, soft, NT Exts: trace pedal edema Back: no step off or deformity. Tenderness to minimal palpation of the thoracic and lumbar areas. Neuro: CN II-XII intact MMT: ?? RUE:?LUE: Delt?5/5?Delt?5/5 Bi?5/5?Bi?5/5 WE? 5/5? WE? 5/5 Tri? 5/5? Tri? 5/5 FF? 5/5? FF?5/5 ?? Giveway weakness RLE RLE:? LLE: HF? 5/5? HF? 5/5 Quad?? 5/5? Quad?? 5/5 DF? 5/5? DF? 5/5 PF? 5/5? PF?5/5 Edwards's negative Babinski absent Sensory: intact LT and PP in cervical, thoracic, and lumbar segments bilat. DTRs: biceps and patella 1+ bilat, normal tone, no clonus. SLR: mildy positive on right but limited by excessive pain response to any movement. ?? Mobility: bed mobility supervision. Supine to sit supervision. Sitting balance indep. Assessment/Plan 42yo F with h/o chronic pain, recent flare up of back pain which has been refractory to treatment thus far admitted 2nd time this month for flare up of back pain. Pt does not have a sensory level on exam and no UMN signs on exam. I am unable to explain her urinary retention. Recommend obtaining MRI C and T spine without contrast. ?? Recommendations: Stop IV opioid pain medications. She is opioid tolerant so pain mgmt will be challenging. Dilaudid 2mg PO q 4 hrs prn moderate pain OR 4mg q 4 hrs prn severe pain. Stop short acting Morphine. OK for long acting MS Contin 15mg q 12 hours for now. Add Flexeril 5mg tid scheduled. Start Neurontin 100mg tid and titrate up to 300mg tid in a couple of days. Continue scheduled tylenol. Continue bladder scans q [address] cath if >300 and unable to void. PT yuli. D/w Lyssa Bravo. Total time 120 minutes. ? Problem List/Past Medical History Ongoing Anxiety Chronic low back pain Depression GERD (gastroesophageal reflux disease) Morbid obesity Obese class I Stress incontinence Procedure/Surgical History No qualifying data available. Home Medications Acetaminophen: 650 mg, By Mouth, Every 6 hours, PRN (Pain , Mild) Atorvastatin: 10 mg = 1 tablet, By Mouth, Daily at bedtime Cyanocobalamin: 1,000 mcg, Intramuscular, Every 28 days Docusate: 100 mg = 1 capsule, By Mouth, Daily, PRN (as needed for constipation) Folic Acid: 1 mg = 1 tablet, By Mouth, Daily Ibuprofen: 800 mg, By Mouth, Every 8 hours Leuprolide: 3.75 mg, Intramuscular, Every 28 days Morphine: 15 mg, By Mouth, Every 12 hours Nystatin Topical: 1 application, Topically, 2 times a day, PRN Senna: 8.6 mg = 1 tablet, By Mouth, Daily, PRN (as needed for constipation) Topiramate: 3 tablets, By Mouth, Daily at bedtime Trazodone: 2 tablets, By Mouth, Daily at bedtime Hospital Medications Medications (21) Active SCHEDULED: (10) Acetaminophen 325 mg Tablet (Acetaminophen Tablet) ??975 mg, By Mouth, Every 8 hours Atorvastatin 10 mg Tablet (atorvastatin 10 mg oral tablet) ??10 mg, By Mouth, Daily at bedtime Enoxaparin 40 mg Inj (Enoxaparin Inj) ??40 mg 0.4 mL, Subcutaneous Injection, Daily Folic Acid 1 mg Tablet (folic acid 1 mg oral tablet) ??1 mg, By Mouth, Daily Lidocaine 5% Topical Patch (Lidocaine 5% Patch) ??2 each, Topically, Daily MorPHINE 15 mg CR Tablet (MorPHINE CR Tablet) ??15 mg, By Mouth, Every 12 hours NaCl 0.9% Flush 3ml (NaCL 0.9% Flush) ??3 mL, IV Push, Every 8 hours Remove Patch (Remove Lidocaine Patch) ??2 each, Topically, Daily at bedtime Topiramate 100 mg Tablet (Topiramate Tablet) ??300 mg, By Mouth, Daily at bedtime Trazodone 50 mg Tablet (traZODone 50 mg oral tablet) ??50 mg, By Mouth, Daily at bedtime CONTINUOUS: (0) PRN: (11) Dextromethorphan-Guaifenesin 20 mg-200 mg/10 mL Liqu UD (Robitussin DM Liquid) ??10 mL, By Mouth, Every 4 hours HYDROmorphone 0.5 mg/0.5 mL Inj Syringe (Dilaudid Inj) ??0.5 mg 0.5 mL, IV Push Slowly, Every 6 hours Ibuprofen 800 mg Tablet (ibuprofen 800 mg oral tablet) ??800 mg, By Mouth, Every 8 hours Melatonin 3 mg Tablet (Melatonin Tablet) ??3 mg, By Mouth, Daily at bedtime MorPHINE 15 mg Tablet (MorPHINE Immediate Release Tablet) ??7.5 mg, By Mouth, Every 4 hours NaCl 0.9% Flush 3ml (NaCL 0.9% Flush) ??3 mL, IV Push, Every 8 hours nalOXONE ??400mcg/mL Inj (Narcan Inj) ??0.4 mg 1 mL, IV Push Slowly, Once Nystatin Powder ??1 application, Topically, 2 times a day Polyethylene Glycol 17 Gm Powder (MiraLax Powder) ??17 Gm 1 pack/packet, By Mouth, Daily Senna 8.6 mg / Docusate 50 mg tablet (Docusate/Senna Tablet) ??1 tablet, By Mouth, 2 times a day Simethicone 80 mg Chewable Tablet (Simethicone Tablet) ??80 mg, Chew, 3 times a day Patient Instructions DIAGNOSIS: Acute exacerbation of chronic low back pain ? TEST RESULTS: MRI was negative for any acute changes in your spine, including no evidence of cauda equina.??Labs were normal. ? Your specific PATIENT CARE INSTRUCTIONS (what to do / when to return): Continue with pain management??as recommended from the hospital??during her prior admission.??You can follow-up with your primary care provider??if you feel that this is not adequate. Continue monitoring your symptoms at home.??If you??have any kind of injury or trauma to your back,??if your pain becomes significantly worse and you are not able to walk,??or if you have complete numbness or tingling??to your legs or when you wipe,??please return to the ED for reevaluation. Call your PCP??in 1 to 2 days to discuss follow-up as needed. Lab Results PM&R Labs WBC:??12.6 k/mm3??High (03/27/23) Platelet Count: 284 k/mm3 (03/27/23) Sodium: 139 mmol/L (03/27/23) BUN: 15 mg/dL (03/27/23) Creatinine-Blood: 0.7 mg/dL (03/27/23) Note * Marizol Doherty RN, I: PERFORM Event Display: Discharge/Transfer Note Hospital Authored Date: Nursing Discharge Note Entered On: 03/31/2023 17:52 EDT Performed On: 03/31/2023 17:51 EDT by Marizol Doherty RN, I Nursing Discharge Note 2 Discharge Time : 03/31/2023 17:15 EDT Discharge Level of Care at Discharge : Homehealth/VNA Discharge VNA/Hospice/Home Care(v001) : [facility] [phone] Quality Assurance Group Leader Utilized : No AMA Form Signed : No Patient Left Unit Via : Wheelchair Patient Accompanied Off Unit with : Responsible adult DC Instructions Provided & Signed by Pt : Yes Patient Understands D/C Instructions : Yes Verbalized Understanding of D/C Plan By : Patient, Responsible adult Patient Instructions Discharge Signed : Yes Did Pt have Specialty Bed or Wound Vac : No Marizol Doherty RN, I - 03/31/2023 17:51 EDT * Rika Nicolas: MODIFY, PERFORM Event Display: Discharge/Transfer Note Hospital Authored Date: [id number] Patient: ??JO ANN LEDESMA ? Age:??42 Years?Sex:??Female?:??1980?? Patient Information Discharge Location: [facility] Primary Care Physician: Todd Rice NP Admit Date/Time: 03/27/23 00:25 Discharge Date:??03/31/2023 14:29 Discharge Disposition Discharge Disposition: Home with Home Health Discharge Diagnosis Back pain (M54.9) Acute urinary retention (R33.8) Chronic pain syndrome (G89.4) Difficulty walking (R26.2) Acute exacerbation of chronic low back pain (M54.50) Leukocytosis (D72.829) Lumbar radiculopathy (M54.16) ?? _ Discharge Medications Acetaminophen (acetaminophen 325 mg oral tablet)?650?Milligram?By Mouth?Every 6 hours?as needed?Pain , Mild Atorvastatin (atorvastatin 10 mg oral tablet)?1?tab(s)?10?Milligram?By Mouth?Daily at bedtime Cyanocobalamin (cyanocobalamin 1000 mcg/ml injectable solution)?1,000?Microgram?Intramuscular?Every 28 days Cyclobenzaprine (cyclobenzaprine 5 mg oral tablet)?5?Milligram?By Mouth?3 times a day Docusate (docusate sodium 100 mg oral capsule)?1?capsule?100?Milligram?By Mouth?Daily?as needed?as needed for constipation Folic Acid (folic acid 1 mg oral tablet)?1?Milligram?1?tablet?By Mouth?Daily Gabapentin (gabapentin 100 mg oral capsule)?100?Milligram?By Mouth?3 times a day Hydromorphone (Dilaudid 4 mg oral tablet)?4?Milligram?By Mouth?Every 4 hours?as needed?Pain , Severe?for 7?Days Ibuprofen (ibuprofen 800 mg oral tablet)?800?Milligram?By Mouth?Every 8 hours Leuprolide (Lupron Depot 3.75 mg intramuscular kit)?3.75?Milligram?Intramuscular?Every 28 days Morphine (morphine 15 mg/8 to 12 hr oral tablet, extended release)?15?Milligram?By Mouth?Every 12 hours?for 7?Days Nystatin Topical (nystatin topical 191314 u/gm powder)?1?ranjan?Topically?2 times a day?PRN Senna (senna 187 mg oral tablet)?1?tab(s)?8.6?Milligram?By Mouth?Daily?as needed?as needed for constipation Topiramate (topiramate 100 mg oral tablet)?3 tablets?By Mouth?Daily at bedtime Trazodone (traZODone 100 mg oral tablet)?2 tablets?By Mouth?Daily at bedtime Medications Started gabapentin cyclobenzaprine Medications Discontinued none Doses Changed none Allergies Allergies ?(Active and Proposed Allergies Only) aloe vera topical? (Severity: Unknown severity, Onset: Unknown) Reglan? (Severity: Unknown severity, Onset: Unknown) ? PCP Follow-Up/Heads-Up - acute on chronic back pain Future Appointments Thursday 1:50 PM EDT ?? With: Last Loving DO Where[facility] [address] [place] [id number]- Status: Pending Hospital Course JO ANN LEDESMA is a 42 yo F with PMHx chronic back pain, recent admission 03/06 - 03/16 for acute back flare (received SI joint injection 03/10, prednisone taper, discharged on morphine 15 ER BID + morphine 7/5 IR PRN) who presents for recurrent back pain.?She underwent MRI??C/T/L-spine with??no??acute findings??and degenerative disc disease of lumbar spine.??She will follow-up with??pain??specialist on 05/01. ?? Inpatient rehab stay was offered though??declined,??instead??wishing to go to??her sister's home with VNA services. ? Objective Assessment and Plan ? . Physical Exam Temperature?97.9 ?(08:46) Systolic Blood Pressure?137 ?(08:46) Diastolic Blood Pressure?88 ?(08:46) Pulse?83 ?(08:46) SpO2?100 ?(08:46) Respiratory Rate?20 ?(13:22) ? General: Alert, NAD. HEENT: Normocephalic. Respiratory: Clear to auscultation. No wheezing, rales or rhonchi. Cardiovascular: RRR. No murmurs, rubs or gallops. Gastrointestinal: Abdomen soft, non-tender, non-distended. + bowel sounds. Neurologic: Strength against resistance 5/5 BUE, BLE.?? No saddle paresthesia, sensory intact lighttouch and pinprick??in??C/T/L-spine.?? No clonus.?? Ambulated with nurse. Skin: No rashes or lesions. Extremities: No cyanosis or clubbing. No gross deformities. Normal range of motion. Psychiatric: appropriate mood and affect Pending Results Hold Lavender Tube (BB) ordered on 03/26/2023 Patient Education Titles Back Pain (Acute or Chronic)?? Follow-Up Appointments Added Follow Up ?Time Frame ?Comments Dwayne MOE , Todd Leyva Patient Instructions DIAGNOSIS: Acute exacerbation of chronic low back pain ? TEST RESULTS: MRI was negative for any acute changes in your spine, including no evidence of cauda equina.??Labs were normal. ? Your specific PATIENT CARE INSTRUCTIONS (what to do / when to return): Continue with pain management??as recommended from the hospital??during her prior admission.??You can follow-up with your primary care provider??if you feel that this is not adequate. Continue monitoring your symptoms at home.??If you??have any kind of injury or trauma to your back,??if your pain becomes significantly worse and you are not able to walk,??or if you have complete numbness or tingling??to your legs or when you wipe,??please return to the ED for reevaluation. Call your PCP??in 1 to 2 days to discuss follow-up as needed. Post Discharge Care Discharge ?03/31/23 16:17:00 EDT Discharge Prescriptions ?ePrescribed, ??03/31/23 16:17:00 EDT Home Health Face to Face *Denotes mandatory montano ?? *I certify that this patient is under my care and that I or an allowed non- physician working with me had a face to face encounter with the patient on this date:??03/31/2023 16:18 ?? *The encounter with the patient was in whole, or in part, for the following medical condition, which is the primary diagnosis(es) for home health care:??Back pain (M54.9) Acute urinary retention (R33.8) Chronic pain syndrome (G89.4) Difficulty walking (R26.2) Acute exacerbation of chronic low back pain (M54.50) Leukocytosis (D72.829) Lumbar radiculopathy (M54.16) ? *Select the indications for the discipline/s that are being arranged for this patient. Nursing (select all that apply): [_] None [_] Medication management (reconciliation, teaching)?? [_] Chronic disease management?? [_] Wound care and treatment?? [_] Home safety evaluation [_] Administer SQ/IM/IV medications?? [_] Cath care?? [_] Drain care?? [_] Trach or GT care?? Other _ Occupation Therapy (select all that apply): [_] None [_] ADL Management [_] Fall prevention training [_] Energy conservation [_] Cognitive training Other _ Physical Therapy (select all that apply): [_] None [X] Functional mobility training [X] Home exercise program to strengthen [X] Increase ROM?? [_] Falls prevention training [_] Home maintenance program for chronic disease Other _ Speech Therapy (select all that apply): [_] None [_] Swallow evaluation and training [_] Speech and language training [_] Cognitive training to process, organize, and/or recall information Other _ ? *Homebound due to (select all that apply): [X] Inability to leave home without assistance/supervision [X] Inability to ambulate without assistance [X] Pain [_] Decreased strength and endurance [_] Unsteady gait [_] Severe SOB and fatigue [_] Impaired transfers [_] Inability to negotiate stairs [_] Limited weight bearing [_] Mental status change? *Physician Signature: _RIKA BRAVO PA-C ?? *By signing this, I certify that I have personally evaluated the patient and agree with the findings and recommendations as documented above. ? Results Discharge Labs BLOOD COUNT & DIFF WBC 11.1 k/mm3 (High)?? 03/28/2023 06:28 RBC 4.54 m/mm3 ()?? 03/28/2023 06:28 Hgb 13.8 Gm/dL ()?? 03/28/2023 06:28 Hct 42.5 % ()?? 03/28/2023 06:28 MCV 93.6 femtoliters ()?? 03/28/2023 06:28 MCH 30.4 pg ()?? 03/28/2023 06:28 MCHC 32.5 g/dL (Low)?? 03/28/2023 06:28 Platelet Count 307 k/mm3 ()?? 03/28/2023 06:28 RDW-SD 45.0 femtoliters ()?? 03/28/2023 06:28 MPV 10.0 femtoliters ()?? 03/28/2023 06:28 Nucleated RBC (Automated) 0.0 #/100 WBC'S ()?? 03/28/2023 06:28 Abs. NRBC 0.0 k/mm3 ()?? 03/28/2023 06:28 Abs. Neut 8.6 k/mm3 (High)?? 03/26/2023 17:08 Abs. Lymph 2.6 k/mm3 ()?? 03/26/2023 17:08 Abs. Waller 0.6 k/mm3 ()?? 03/26/2023 17:08 Abs. Eo 0.1 k/mm3 ()?? 03/26/2023 17:08 Abs. Baso 0.0 k/mm3 ()?? 03/26/2023 17:08 Neut % 71.8 % ()?? 03/26/2023 17:08 Lymph % 21.7 % ()?? 03/26/2023 17:08 Waller % 4.7 % ()?? 03/26/2023 17:08 Eos % 0.8 % ()?? 03/26/2023 17:08 Baso % 0.3 % ()?? 03/26/2023 17:08 Imm Gran 0.7 % ()?? 03/26/2023 17:08 Abs. Imm Gran 0.1 k/mm3 ()?? 03/26/2023 17:08 ?? CHEM GENERAL Sodium 142 mmol/L ()?? 03/28/2023 06:28 Potassium 4.6 mmol/L ()?? 03/28/2023 06:28 Chloride 106 mmol/L ()?? 03/28/2023 06:28 Bicarbonate Level 25 mmol/L ()?? 03/28/2023 06:28 Anion Gap 11 ()?? 03/28/2023 06:28 Glucose Level 85 mg/dL ()?? 03/27/2023 06:46 BUN 16 mg/dL ()?? 03/28/2023 06:28 Creatinine-Blood 0.7 mg/dL ()?? 03/28/2023 06:28 Estimated GFR Creatinine 104 ML/MIN/1.73 M2 ()?? 03/28/2023 06:28 Calcium 9.3 mg/dL ()?? 03/27/2023 06:46 Phosphorus 4.2 mg/dL ()?? 03/27/2023 06:46 Magnesium 2.3 mg/dL ()?? 03/28/2023 06:28 ?? COAG INR 1.0 ()?? 03/26/2023 17:08 Protime (PT) 10.1 seconds ()?? 03/26/2023 17:08 APTT 25.6 seconds ()?? 03/26/2023 17:08 ? UA/URINALYSIS Appear/Color, Urine COLORLESS ()?? 03/26/2023 18:02 Specific [place], Urine 1.010 ()?? 03/26/2023 18:02 pH, Urine 7.0 ()?? 03/26/2023 18:02 Albumin, Urine NEGATIVE ()?? 03/26/2023 18:02 Glucose, Urine NEGATIVE ()?? 03/26/2023 18:02 Ketones, Urine NEGATIVE ()?? 03/26/2023 18:02 Bilirubin, Urine NEGATIVE ()?? 03/26/2023 18:02 Hemoglobin, Urine NEGATIVE ()?? 03/26/2023 18:02 Nitrite, Urine NEGATIVE ()?? 03/26/2023 18:02 Leukocyte, Urine NEGATIVE ()?? 03/26/2023 18:02 Urobilinogen NORMAL mg/dL ()?? 03/26/2023 18:02 WBC's, Urine NONE SEEN /HPF ()?? 03/26/2023 18:02 RBC's, Urine NONE SEEN /HPF ()?? 03/26/2023 18:02 Squamous Epith 1 /HPF ()?? 03/26/2023 18:02 Mucus SLIGHT /LPF ()?? 03/26/2023 18:02 Hold Urine Culture Testing available 48 hours from time of collection. ()?? 03/26/2023 18:02 ?? URINE OTHER Est Creatinine Clearance 99.73 mL/min ()?? 03/27/2023 07:33 ? VIROLOGY COVID-19 by RT-PCR NEGATIVE ()?? 03/27/2023 00:30 COVID-19 PCR Specimen Source NASAL ()?? 03/30/2023 08:46 COVID-19 PCR Result NEGATIVE ()?? 03/30/2023 08:46 ? _41 minutes spent on discharge * Yourous RN, Marizol I: PERFORM Event Display: Patient Education/Instruction Authored Date: [id number] Inpatient Adult Discharge Instructions [address] [address] Name: JO ANN LEDESMA : 1980 Visit: 03/27/2023 00:25:00 Current Date: 03/31/2023 16:40 Account: [id number] Inpatient Adult Discharge Instructions We would like [...] and their families. Surveys are administered by [employer] ?? If further treatment with your primary care physician or another doctor is recommended, it is important for you to keep the appointment. Call your primary care physician or return to the Emergency Department immediately if your condition worsens, fails to improve, or new symptoms develop. If you need to find a doctor, you can call [facility] [employer] for a referral at [phone] or toll free at [phone] ([phone]) or log in to [email or web address].. ?? You can view and manage your care through the patient portal or by using a health care ranjan of your choosing. [employer] is a website that allows you to securely view your medical information including your hospital discharge summary, office visit summaries, medications and follow-up visits. You can also request appointments, renew medications, and request access to your medical information using a health care ranjan of your choosing, or just ask a question. You can enroll at [email or web address] or register during your next office visit. You have been discharged from [facility], Patient Care Unit: [id number]. If you have any questions regarding these instructions after you leave, please call us and we will be happy to assist you. [facility] Your Care Team Attending Physician Micheline LLOYD, Charli Elizabeth Consulting Providers Vignesh LLOYD, Leta Painter MD, Cy Massey Discharging Providers Margi PENA, Rika Chaudhry Reason for Admission Hx of degenradive disc disease, Coming in from PCP, C/o 06/09 back pain. Recent d/c from inpatient 10days ago. Multiples episodes of incontinence d/t back pain Your Diagnosis Acute exacerbation of chronic low back pain Lumbar radiculopathy Leukocytosis Acute urinary retention Back pain Difficulty walking Chronic pain syndrome Tests Performed Below is a partial list of the tests performed during your hospitalization. You may have had other tests and procedures not included in this list. Please discuss all test results with your provider. Basic Metabolic Panel BUN CBC CBC w/ Differential COVID-19 (2019 Novel Coronavirus) PCR COVID-19 (Novel Coronavirus), Rapid PCR Creatinine INR Lytes Magnesium Level Phosphorus Level PTT Urinalysis w/hold for Urine Culture MRI Cervical Spine W/O Contrast MRI Lumbar Spine W/O Contrast MRI Thoracic Spine W/O Contrast Primary Care Provider Dwayne MOE , Todd Leyva Advance Directive Health Care Proxy on File Yes - Health Care Proxy Discharge Vitals Temperature: 97.9 DegF Height: 170.18 cm Pulse Rate: 83 bpm Weight: 96.3 kg Respiratory Rate: 20 br/min Body Mass Index:??33.25 kg/m2??Critical Respiratory Rate: 20 br/min Body surface area: 2.13 Respiratory Rate: 20 br/min ?? Respiratory Rate: 20 br/min ?? Systolic Blood Pressure: 137 mm Hg ?? Diastolic Blood Pressure:??88 mm Hg??High ?? Oxygen Saturation: 100 % ?? Studies Pending All tests and labs ordered during this hospital stay have been completed unless listed below. Please discuss all pending results with your provider listed above in these instructions. ?? Hold Lavender Tube (BB) What to do next Instructions From Your Doctor DIAGNOSIS: Acute exacerbation of chronic low back pain ? TEST RESULTS: MRI was negative for any acute changes in your spine, including no evidence of cauda equina.??Labs were normal. ? Your specific PATIENT CARE INSTRUCTIONS (what to do / when to return): Continue with pain management??as recommended from the hospital??during her prior admission.??You can follow-up with your primary care provider??if you feel that this is not adequate. Continue monitoring your symptoms at home.??If you??have any kind of injury or trauma to your back,??if your pain becomes significantly worse and you are not able to walk,??or if you have complete numbness or tingling??to your legs or when you wipe,??please return to the ED for reevaluation. Call your PCP??in 1 to 2 days to discuss follow-up as needed. Discharge Orders Scheduled Follow-Up Appointments Thursday 1:50 PM EDT ?? With: Last Loving DO [facility] [address] [place] [id number]- Status: Pending You Need to Schedule the Following Appointments Follow Up with??Todd Rice NP Where: [address] [place] [phone]- Discharge Medications JO ANN LEDESMA :1980 Visit Date:03/27/2023 Medications: Please continue your medications until treatment is completed or stopped by your provider. Medications not listed below should be discontinued. Discuss any questions related to medications with your provider. What How Much When Instructions Next Dose New Cyclobenzaprine (cyclobenzaprine 5 mg oral tablet) 5 Milligram Oral 3 times a day Pickup at [facility] 3 8 9pm New Gabapentin (gabapentin 100 mg oral capsule) 100 Milligram Oral 3 times a day Pickup at [facility] 3 8 9pm New Hydromorphone (Dilaudid 4 mg oral tablet) 4 Milligram Oral Every 4 hours as needed for Pain , Severe Duration: 7 Days Pickup at [facility] 3 as needed last dose 03/31 430pm Changed Morphine (morphine 15 mg/ 8 to 12 hr oral tablet, extended release) 15 Milligram Oral Every 12 hours Duration: 7 Days Pickup at [facility] 3 8 430am Unchanged Acetaminophen (acetaminophen 325 mg oral tablet) 650 Milligram Oral Every 6 hours as needed for Pain , Mild as needed last dose 03/31 430pm Unchanged Atorvastatin (atorvastatin 10 mg oral tablet) 1 tab(s) Oral Daily at Bedtime 03/31 9pm Unchanged Cyanocobalamin (cyanocobalamin 1000 mcg/ ml injectable solution) 1,000 Microgram Intramuscular Every 28 days per home regimen Unchanged Docusate (docusate sodium 100 mg oral capsule) 1 capsule Oral Daily as needed for as needed for constipation as needed Unchanged Folic Acid (folic acid 1 mg oral tablet) 1 tab(s) Oral Daily 04/01 9am Unchanged Ibuprofen (ibuprofen 800 mg oral tablet) 800 Milligram Oral Every 8 hours per home regimen last dose 130pm Unchanged Leuprolide (Lupron Depot 3.75 mg intramuscular kit) 3.75 Milligram Intramuscular Every 28 days per home regimen Unchanged Nystatin Topical (nystatin topical 417309 u/ gm powder) 1 ranjan Topically Twice a day PRN ?? as needed Unchanged Senna (senna 187 mg oral tablet) 1 tab(s) Oral Daily as needed for as needed for constipation as needed Unchanged Topiramate (topiramate 100 mg oral tablet) 3 tablets Oral Daily at Bedtime 03/31 9pm Unchanged Trazodone (traZODone 100 mg oral tablet) 2 tablets Oral Daily at Bedtime 8 9pm Pharmacy Information [facility] 3: [address] [place], [place] [id number] [phone] Test Results Below is a partial list of the most recent Laboratory test results done prior to this discharge. You may have had other tests and procedures not included in this list. Please discuss all test resultswith your provider. Est Creatinine Clearance - 99.73 mL/min (03/27/2023) Basic Metabolic Panel (03/27/2023) ???Sodium - 139 mmol/L???Potassium - 4.0 mmol/L???Chloride - 105 mmol/L???Bicarbonate Level - 22 mmol/L???Anion Gap - 12???Glucose Level - 85 mg/dL???BUN - 15 mg/dL???Creatinine-Blood - 0.7 mg/dL???Estimated GFR Creatinine - 110 ML/MIN/1.73 M2???Calcium - 9.3 mg/dL BUN (03/28/2023) ???BUN - 16 mg/dL CBC (03/28/2023) ???WBC - 11.1 k/mm3???RBC - 4.54 m/mm3???Hgb - 13.8 Gm/dL???Hct - 42.5 %???MCV - 93.6 femtoliters???MCH - 30.4 pg???MCHC - 32.5 g/dL???Platelet Count - 307 k/mm3???RDW-SD - 45.0 femtoliters???MPV - 10.0 femtoliters???Nucleated RBC (Automated) - 0.0 #/100 WBC'S???Abs. NRBC - 0.0 k/mm3 CBC w/ Differential (03/26/2023) ???WBC - 12.0 k/mm3???RBC - 4.43 m/mm3???Hgb - 13.5 Gm/dL???Hct - 40.9 %???MCV - 92.3 femtoliters???MCH - 30.5 pg???MCHC - 33.0 g/dL???Platelet Count - 296 k/mm3???RDW-SD - 44.7 femtoliters???MPV - 10.3 femtoliters???Nucleated RBC (Automated) - 0.0 #/100 WBC'S???Abs. NRBC - 0.0 k/mm3???Abs. Neut - 8.6 k/mm3???Abs. Lymph - 2.6 k/mm3???Abs. Waller - 0.6 k/mm3???Abs. Eo - 0.1 k/mm3???Abs. Baso - 0.0 k/mm3???Neut % - 71.8 %???Lymph % - 21.7 %???Waller % - 4.7 %???Eos % - 0.8 %???Baso % - 0.3 %???Imm Gran - 0.7 %???Abs. Imm Gran - 0.1 k/mm3 COVID-19 (2019 Novel Coronavirus) PCR (03/30/2023) ???COVID-19 PCR Specimen Source - NASAL???COVID-19 PCR Result - NEGATIVE COVID-19 (Novel Coronavirus), Rapid PCR (03/27/2023) ???COVID-19 by RT-PCR - NEGATIVE Creatinine (03/28/2023) ???Creatinine-Blood - 0.7 mg/dL???Estimated GFR Creatinine - 104 ML/MIN/1.73 M2 INR (03/26/2023) ???INR - 1.0???Protime (PT) - 10.1 seconds Lytes (03/28/2023) ???Sodium - 142 mmol/L???Potassium - 4.6 mmol/L???Chloride - 106 mmol/L???Bicarbonate Level - 25 mmol/L???Anion Gap - 11 Magnesium Level (03/28/2023) ???Magnesium - 2.3 mg/dL Phosphorus Level (03/27/2023) ???Phosphorus - 4.2 mg/dL PTT (03/26/2023) ???APTT - 25.6 seconds Urinalysis w/hold for Urine Culture (03/26/2023) ???Appear/Color, Urine - COLORLESS???Specific [place]uf[place], Urine - 1.010???pH, Urine - 7.0???Albumin, Urine - NEGATIVE???Glucose, Urine - NEGATIVE???Ketones, Urine - NEGATIVE???Bilirubin, Urine - NEGATIVE???Hemoglobin, Urine - NEGATIVE???Nitrite, Urine - NEGATIVE???Leukocyte, Urine - NEGATIVE???Urobilin ogen - NORMAL???WBC's, Urine - NONE SEEN???RBC's, Urine - NONE SEEN???Squamous Epith - 1 /HPF???Mucus - SLIGHT???Hold Urine Culture - Testing available 48 hours from time of collection. Allergies (NKA means No Known Allergies) Reglan aloe vera topical Problems Active Problems??(7) Anxiety?? Chronic low back pain?? Depression?? GERD (gastroesophageal reflux disease)?? Morbid obesity?? Obese class I?? Stress incontinence?? Education Materials Below is the list of Educational Leaflet Providered with your Discharge Instructions. Back Pain (Acute or Chronic)?? Valuables and Belongings I fully understand and agree that [facility] accepts no responsibility for all my personal [...] of Valuable and Belonging List: With patient Disposition of Belongings: Sent home with patient/family Date for Pt to Sign Valuables/Belongings: 03/27/23 05:22:00 ?? Other Discharge Information ? Case Management Discharge Plan?? Discharge Plan?? Discharge Agency Information?? Discharge Level of Care at Discharge: Homehealth/VNA Service Categories #1: Physical Therapy, Longterm Discharge VNA/Hospice/Home Care: [facility] [phone] Service Comments #1: The agnecy will call you to arrange visit times, please call agency with questions ?? Pulmonary Rehab Status?? Pulmonary Rehab Discharge Status?? Respiratory Rate: 20 br/min Respiratory Rate: 20 br/min Respiratory Rate: 20 br/min Respiratory Rate: 20 br/min ? Common Emergency Awareness Tips IS [...] are strongly encouraged to quit. Please call [facility] [employer] Link at [phone] or [phone] ([phone]) or log in to [email or web address] for referrals to smoking cessation programs. ?? 192 Suicide & Crisis Lifeline is available 23/03 if you or someone you know needs to find a reason to keep living. By calling 734 you'll be connected to a skilled, trained counselor at a crisis center in your area. INPATIENT DISCHARGE INSTRUCTIONS SIGNATURE LUCI JO ANN LEDESMA Location:[facility] Registration Date and Time:03/27/2023 00:25 EDT Primary Care Physician: Dwayne MOE , Todd Leyva, Attending Physician: Micheline LLOYD, Charli Elizabeth, I BALTAZAR JO ANN, have received the above patient education materials/instructions and have verbalized understanding. If ambulance or transport services are being used I further acknowledge being given a choice of service. ?? If you need to contact me, please call me at this number: . Patient/Dining Room Supervisor Name: Patient/Dining Room Supervisor Signature: Relationship to Patient: Witness Name/Signature: Date: * Stefani Reyes DO: PERFORM Event Display: Patient Education Leaflets Authored Date: [id number] Back Pain (Acute or Chronic) ?? [id number] Back Pain (Acute or Chronic) Back pain is one of the most common problems. The good news is that most people feel better in 1 to2 weeks, and most of the rest in 1 to 2 months. Most people can remain active. People who have pain??describe it differently???not??everyone is the same. ??? The pain can be sharp, stabbing, shooting, aching, cramping or burning. ??? Movement, standing,bending, lifting, sitting, or walking may worsen pain. ??? It can be limited to one spot or area, or it can be more generalized. ??? It can spread upwards, to the front, or go down your arms or legs (sciatica). ??? It can cause muscle spasm. Most of the time, mechanical problems with the muscles??or spine cause the pain. Mechanical problems??are usually caused by an injury to the muscles or ligaments. Illness can cause back pain, but it's usually not caused by a serious illness. Mechanical problems include:? Physical activity such as sports, exercise, work, or normal activity ??? Overexertion, lifting,pushing, pulling incorrectly or too aggressively ??? Sudden twisting, bending, or stretching from an accident, or accidental movement ??? Poor posture ??? Stretching or moving wrong, without noticingpain at the time ??? Poor coordination, lack of regular exercise (check with your doctor about this) ??? Spinal disc disease or arthritis ??? Stress Pain can also be related to , or illness such as appendicitis, bladder or kidney infections, kidney stones, and pelvic infections. Acute back pain usually gets better in??1 to 2 weeks. Back pain related to disk disease, arthritis in the spinal joints, or narrowing of the spinal canal (spinal stenosis) can become chronic and lastfor months or years. Unless you had a physical injury such as a car accident or fall, X-rays are usually not needed for the first assessment of back pain. If pain continues and does not respond to medical treatment, you may need X-rays and other tests. Home care Try this home care advice: ??? When in bed, try??to find a position of comfort. A firm mattress is best. Try lying flat on your back with pillows under your knees. You can also try lying on your side with your knees bent up toward your chest and a pillow between your knees. ??? At first, don't try to stretch out the sore spots. If there is a strain, it's not like the good soreness you get after exercising without an injury. In this case, stretching may make it worse. ??? Don't sit for long periods, as in a long car ride or during other??travel. This puts more stress on the lower back than standing or walking. ??? During the first 24 to 72 hours after an acute injury or flare up of chronic back pain, apply an ice pack to the painful area for 20 minutes and then remove it for 20 minutes. Do this over a period of 60 to 90 minutes or several times a day. This will reduce swelling and pain. Wrap the ice pack in a thintowel or plastic to protect your skin. ??? You can start with ice, then switch to heat. Heat (hot shower, hot bath, or heating pad) reduces pain and works well for muscle spasms. Heat can be applied to the painful area for 20 minutes then remove it for 20 minutes. Do this over a period of 60 to 90 minutes or several times a day. Don't sleep on a heating pad. It can lead to skin hinkle or tissue damage. ??? You can alternate ice and heat therapy. Talk with your doctor about??the best treatment for your back pain. ??? Therapeutic massage can help relax the back muscles without stretching them. ??? Be aware of safe lifting methods. Don't lift anything without stretching first. Medicines Talk to your doctor before using medicine, especially if you have other medical problems or are taking other medicines. ??? You may use [id number] medicine as directed on the bottle to control pain, unless another pain medicine was prescribed. Talk with your healthcare provider before using these medicines if you have chronic conditions such as diabetes, liver or kidney disease, stomach ulcers, or digestive bleeding. Also talk with your provider if you take blood thinners. ??? Be careful if you are given a prescription medicines, narcotics, or medicine for muscle spasms. They can cause drowsiness, affect your coordination, reflexes, and judgment. Don't drive or operate heavy machinery. ?? Follow-up care Follow up with your healthcare provider, or as advised.?? If X-rays were taken, you will be told of any new findings that may affect your care. ?? Call 911 Call 911 if any of the following occur: ??? Trouble breathing ??? Confusion ??? Very drowsy or trouble awakening ??? Fainting or loss of consciousness ??? Rapid or very slow heart rate ??? Loss of bowel or bladder control ?? When to seek medical advice Call your healthcare provider right away if any of these occur:? Pain gets worse or spreads toyour legs ??? Your bowel or bladder control changes ??? Fever ??? Blood in your urine ??? Weakness or numbness in one or both legs ??? Numbness in the groin or genital area ?? Last Reviewed Date: 2021 ?? [id number] [employer]. All rights reserved. This information is not intended as a substitute for professional medical care. Always follow your healthcare professional's instructions. ?? Patient Care team information Care Team Personnel Name: Chitra Gomez RN Position: S RN Member Role: Primary Care Nurse Name: Geni Davis RN Position: S RN Member Role: Primary Care Nurse Name: Gertrudis Mandujano RN Position: [facility] RN Member Role: Primary Care Nurse Name: Germán Robins Jr, RN Position: [facility] RN Member Role: Primary Care Nurse Name: Todd Rice NP Position: Reference Physician Member Role: PCP Address: Address: [address] [place] [address]- [place] Name: Shaka Sampson Position: [facility] RN Member Role: Primary Care Nurse Name: Valeri Langston RN Position: [facility] RN Member Role: Primary Care Nurse Name: Shiva Pinto RN Position: [facility] RN Member Role: Primary Care Nurse Name: Harmony Tapia RN Position: [facility] RN Member Role: Primary Care Nurse Name: Lauryn Cavazos RN Position: [facility] RN Member Role: Primary Care Nurse Name: Marizol Doherty RN, I Position: [facility] RN Member Role: Primary Care Nurse Name: Elizabeth HDEZ Attending Position: [facility] ED Medicine MD Name: Stefani Reyes DO Position: [facility] Resident Member Role: Resident Address: Address: [address] [place] [address] [place] [address]- [place] Name: Kristyn Shelton RN Position: [facility] ED RN W/OE and Tasks Member Role: Patient Care Provider Name: Huber Escalona Position: [facility] ED OA Charge Member Role: ED Associate Care Team Related Persons Name: AMALIA LEDESMA Address: [place], [place] Name: AMPARO LEDESMA Address: home [address] [place] [address] Name: JAN DUNCAN Address: home [address] [place] [address] Name: CHELLE GIL Address: home [address] [place] [address]
--- OUTSIDE RECORDS SUMMARY | 2024-06-29 06:39 | XMS_ITS | Continuity of Care Document ---
Author Organization [facility] Address [address] [place] [address]- Care Team Providers Care Architect Manager Name Role Phone Dwayne MOE, Todd Leyva Primary Care Physician [place] [facility] [place] 05/07/23 [facility] [address] [place] [address]- Discharge Disposition: A-D/C Home Attending Physician: Tyler Banerjee MD Admitting Physician: Tyler Banerjee MD Referring Physician: Todd Rice NP Allergies, [...] 0 Refills, Maintenance, 03/31/23 14:25:00 EDT, Tablet, [facility], Partial fill upon patient [...] Date: 04/16/23 Stop Date: 08/11/24 Status: Ordered docusate sodium 100 mg oral [...] 03/14/23 16:06:00 EDT, Route to Pharmacy Electronically, [facility], Partial fill upon patient [...] Refills, Maintenance, 03/31/23 14:25:00 EDT, ER Tablet, [facility], Partial fill upon patient [...] Start Date: 04/16/23 Status: Ordered nystatin topical [id number] u/gm powder 1 application, Topically, 2 times [...] Reference Physician Member Role: PCP Address: Address: [address] [place] [id number] Name: Shaka Sampson Position: S RN Member Role: Primary Care Nurse Name: Valeri Langston RN Position: S RN Member Role: Primary Care Nurse Name: Shiva Pinto RN Position: S RN Member Role: Primary Care Nurse Name: Harmony Tapia RN Position: [facility] RN Member Role: Primary Care Nurse Name: Lauryn Cavazos RN Position: [facility] RN Member Role: Primary Care Nurse Name: Marizol Doherty RN, I Position: [facility] RN Member Role: Primary Care Nurse Name: Tyler Banerjee MD Position: [facility] Physician - Oncology Med Service: Hematology & Oncology Member Role: Admitting Physician Address: Address: [address] [place] [address] [place] [address]- [place] Care Team Related Persons Name: AMALIA LEDESMA Address: [place], [place] Name: AMPARO LEDESMA Address: home [address] [place] [address] Name: JAN DUNCAN Address: home [address] [place] [address] Name: CHELLE GIL Address: home [address] [place] [address]
--- OUTSIDE RECORDS SUMMARY | 2024-06-29 06:39 | XMS_ITS | Continuity of Care Document ---
Author Organization [facility] Address [address] [place] [address]- Care Team Providers Care Charging Manipulator Name Role Phone Dwayne MOE, Todd Leyva Primary Care Physician [phone] Encounter [facility] [place] Date(s): 08/20/20 - 09/19/20 [facility] [address] [place] [address]- Attending Physician: Paras Stock Admitting Physician: AdmParas babcock Referring Physician: Admtr ArBasilio Allergies, Adverse Reactions, Alerts Substance Reaction Severity [...] 0 Refills, Maintenance, 08/23/20 2:43:00 EST, Tablet, [id number], Partial fill upon patient request if [...] Active Stress incontinence(Confirmed) Active Morbid obesity(Confirmed) Active Social History Social History Type Response Smoking Status Current every day chato nova entered on: 06/22/14 Sex
[2024-06-29] MEDS: Lactated Ringers 1,000 ML 100 ML IVCONT (06:50)
[2024-06-29] MEDS: methocarbamoL 750 MG TABLET PO ×3 (06:54→21:05)
--- NOTE | 2024-06-29 07:18 | MHC.SHP ---
Pre-Procedural Eval Section A - 24 Hr Update-Section A only Date of Service: 06/29/24 Section B - Complete if H&P > 30 days Chief Complaint: s/p L5-S1 OLIF Allergies: Allergies Allergy/AdvReac Type Severity Reaction Status Date / Time aloe vera [ALOE VERA] Allergy Intermediate RASH Verified 06/14/24 15:11 metoclopramide [From REGLAN] Allergy Intermediate antsy Verified 06/14/24 15:11 allopurinol Allergy Unknown does not Verified 06/14/24 15:11 remember gabapentin AdvReac Intermediate Muscle Verified 06/14/24 15:11 cramps pregabalin [From Lyrica] AdvReac Intermediate Muscle Verified 06/14/24 15:11 cramps Review of Systems Sugical H&P ROS: Negative: Constitution, Cardiovascular, Respiratory, Neurological, Psychiatric, Hem-Onc, Allergic/Immunologic, Gastrointestinal, Genitourinary, Musculoskeletal, Integumentary, Endocrine and Eyes/Ears/Nose/Throat Exam Surgical H&P Exam: Not Evaluated: HEENT, Not Evaluated: Heart, Not Evaluated: Lungs, Not Evaluated: Extremities, Not Evaluated: Abdomen (Multiple scars from previous abdominal surgery), Not Evaluated: Skin and Not Evaluated: Neurological Exam Comment: Patient is awake, alert, no acute distress. Plan Diagnosis/Plan: Unchanged I have reviewed the history and physical and performed a pertinent physical examination on my patient. No changes have occurred unless specified. Anterior lumbar interbody fusion / oblique lumbar interbody fusion L5-S1 Patient is aware that due to previous surgeries the approach may not be feasible Time Spent With Patient Time: Total time managing care of this patient today __15__ minutes.
--- NOTE | 2024-06-29 07:21 | PHA.MEDREC ---
Pharmacy Consult ? Medication Reconciliation Pharmacy has completed the medication reconciliation. Reviewed med rec done by nursing
[2024-06-29] MEDS: Scopolamine 1.5 MG PATCH.TD.3 TRANSDERMA (07:39)
[2024-06-29] MEDS: Acetaminophen 1,000 MG/100 ML PIGGYBACK 400 MG IV (08:15)
--- NOTE | 2024-06-29 10:53 | P.OP_ITS ---
Operative Note Operative Note Date of Service: 06/29/24 Narrative: Pre -op diagnosis: Degenerative Lumbar spine with collapse and radiculopathy L5- S1 Post-op diagnosis: the same Procedure: Anterior exposure for Corpectomy and inter-body fusion L5-S1. Lysis of adhesions. Repair of incisional hernia with mesh Dr. Valle was co-surgeon for fusion The patient was brought to the operating room, positioned on the table supine and general anesthesia was administered. The abdomen was prepped and draped in the usual sterile fashion. After timeout was done, incision was made in the infra-umbilical area over the old scsar 8 cm long. It was brought through subcutaneous tissue and scar tissue down to the mesh . The peritoneum plane was entered.Self-retaining retractor with two deep blades was inserted and peritoneum protected with moist gauzes. Hanna Lm mesh was bunched up toward the umbilicus, it was dissected and freed up to the level of umbilicus. Omental adhesions were divided with electrocautery and sigmoid and anastomosis were visualized and protected. Left internal iliac v ein was identified and dissection was carried along the medial surface of the iliac vein up to the bifurcation. The middle sacral vessels were transected and L5-S1 disc space was bluntly and sharply dissected using bipolar cautery staying directly on the surface of the spine away from sigmoid mesentery. The midline of the disk space was marked with C-arm image guide. Dr. Valle then proceeded with the corpectomy and fusion, which will be dictated separately by him. After this was done, hemostasis was checked and was excellent. Left ureter was examined prior to closure and was intact. There was good left external iliac artery pulse. Diluted 0.5% Marcaine and Lidocaine was injected in the fascia and subcutaneous tissue. Eight transabdominal suteres were placed around the incision through the mesh. Tacker was used on periphery of the mesh as much as it was possible and sutures were sequentially tied. The incision was irrigated and closed by layers using a , 1 Prolene for the midline, 3-0 Vicryl for subcutaneous tissue and 4-0 Monocryl for skin. Exo-fin glue was then applied.
[2024-06-29] MEDS: ceFAZolin Sodium/Dextrose,Iso 2 GM/50 ML PIGGYBACK IV ×3 (11:05→23:19)
--- NOTE | 2024-06-29 11:42 | W.PM.OPN ---
Operative Note Operative Note Date of Service: 06/29/24 Narrative: Preoperative Diagnosis: 1.) Lumbar degenerative disc disease L5-S1; lumbar radiculopathy and back pain Procedure: L5-S1 discectomy, arthrodesis and implantation cage through an anterior lumbar approach (ALIF) ; anterior instrumentation L5-S1; posterior instrumented fusion L5-S1; allograft Indication for Surgery Lumbar degenerative disc disease Consent Informed Consent was obtained for this operation. I have explained the nature, purpose and benefits of the operation. I have discussed the risks and benefit of the operation including possible complications or adverse events with patient/family. Alternative(s) were discussed with the patient with their relative benefits and risks as well as the consequences of not accepting the operation were included in obtaining consent. Surgeon: GLEN HERNANDEZ MD, PHD Procedure Assisted By: NIKO BEAVER MD and JEAN Vu Description of Procedure This patient is suffering from chronic back pain. MRI shows severe lumbar degenerative disc disease L5-S1.. The patient was offered an anterior lumbar interbody fusion with anterior and posterior L5-S1 instrumentation. The procedure complications were explained. The patient was consented. The patient was brought to the operating room and endotracheally intubated. The patient was put in a supine position. Prep and drape was done followed by timeout. Dr. Beaver, co-surgeon, provided the access to the L5-S1 disc space through an anterior approach. He was assisted by physician dental assistant teacher who performed manual retraction. He will dictate the approach in a separate operative note. When the L5-S1 disc space was exposed I took over the procedure. An annulotomy was done followed by a partial discectomy. Sequential trial implants were inserted and advanced towards the posterior wall of the disc space. I completed the discectomy and prepare the endplates. Then a 34 x 20 x 13 and 15 degree lordosis Astura cage filled with allograft was inserted into the disc space. A 13 mm plate was locked down with 3 anchors with a length of 25 mm for anterior instrumentation. The retractor was removed and hemostasis was done by Dr. Galicia who closed the incision. This marked first part of the procedure. Accordingly the patient was turned prone on the Kian spine table and 2 C arms were installed for fluoroscopy. Prep and drape was done followed by a second timeout. 2 paramedian incisions were made lateral from the L5-S1 pedicles. The muscle fascia was opened and the musculature was split bluntly to expose the posterolateral gutter. The following steps were taken for pedicle screw placement: The pediguard tap was used to create a transpedicular trajectory into the vertebral body. A K wire was advanced. A specially designed instrument was advanced over the K wire to decorticate the posterolateral gutter. Pedicle screw was advanced after which the K wire was removed. Following the steps pedicle screws were placed in the bilateral L5 and S1 pedicles. Total of 4 screws were placed with the following measurements: 6.5 x 40 mm. A 45 mm raul on the right and a 40 mm raul on the left were tunneled bilaterally and locked down with locking caps. The extension towers were removed. The posterolateral fusion was completed by laying down allograft in the posterolateral gutter. Hemostasis was done. The paramedian incisions were closed with an 0 Vicryl to fascia and 3-0 Vicryl to subdermal layer. Steri-Strips were used to approximate the incision. An OpSite with Tegaderm was used to cover the incisions. All sponge and needle counts were correct. The patient was extubated and transported in stable condition to recovery room. Neuro monitoring review no abnormalities and values above 20 milliampere after stimulating of pedicle screws. The physician dental assistant teacher was critical for the following aspects of surgery : Assisting in the anterior approach, insertion of pedicle screws and closure of the paramedian incisions Anesthesia: General Estimated Blood Loss (ml): 200 mL Duration of Surgery: 4 hours Complications: None Postoperative Plan: Admit to inpatient for observation
[2024-06-29] MEDS: HYDROmorphone HCl 0.5 MG/0.5 ML SYRINGE 0.25 MG IVPUSH ×6 (12:45→14:40)
[2024-06-29] MEDS: HYDROmorphone HCl 1 MG/ML SYRINGE IVPUSH ×2 (16:50→21:09)
[2024-06-29] MEDS: 0.9 % Sodium Chloride 1,000 ML 75 ML IVCONT (17:55)
[2024-06-29] MEDS: Ketorolac Tromethamine 15 MG/ML VIAL IVPUSH (17:57)
[2024-06-29] MEDS: Acetaminophen 325 MG TABLET 975 MG PO ×2 (18:00→23:19)
[2024-06-29] MEDS: Prochlorperazine Maleate 5 MG TABLET 10 MG PO ×2 (18:01→23:37)
[2024-06-29] MEDS: Atorvastatin Calcium 20 MG TABLET PO (21:05)
[2024-06-29] MEDS: Escitalopram Oxalate 20 MG TABLET PO (21:06)
[2024-06-29] MEDS: Topiramate 100 MG TABLET 300 MG PO (21:06)
[2024-06-29] MEDS: Docusate Sodium 100 MG CAPSULE PO (21:07)
[2024-06-29] MEDS: traZODone HCL 100 MG TABLET 200 MG PO (21:07)
[2024-06-29] MEDS: oxyCODONE HCl Immed Release 5 MG TABLET 10 MG PO (23:35)
[2024-06-30 00:59] VITALS: BP 132/70; PULSE 83; RESP 18; TEMP 38.2; O2SAT 96
[2024-06-30] MEDS: Ketorolac Tromethamine 15 MG/ML VIAL IVPUSH (01:12)
[2024-06-30] MEDS: HYDROmorphone HCl 1 MG/ML SYRINGE IVPUSH ×2 (01:18→05:12)
--- NOTE | 2024-06-30 01:27 | PC.NURSE ---
Low grade temp of 100.7, BP: 132/70, 83 HR, 18 RR, 96% RA, pt reports chills, small headache, and nausea. 9/10 pain, Meds given per MAR, UA collected, BC collected and sent to lab. Dr. De La Cruz made aware.
[2024-06-30 02:08] LABS: Appearance Urine Clear; Color Urine Yellow; Glucose Urine UA Negative (Negative); Leukocyte Esterase Urine Negative (Negative); Nitrite Urine Negative (Negative); PH 6.5 (5.0-9.0); Urine Blood Negative (Negative); Urine Ketones Trace mg/dL (Negative); Urine Protein Negative (Neg-Trace)
[2024-06-30 03:30] VITALS: BP 119/62; PULSE 81; RESP 18; TEMP 37.2; O2SAT 96
[2024-06-30] MEDS: Acetaminophen 325 MG TABLET 975 MG PO (05:12)
[2024-06-30] MEDS: ceFAZolin Sodium/Dextrose,Iso 2 GM/50 ML PIGGYBACK IV (05:13)
[2024-06-30] MEDS: 0.9 % Sodium Chloride 1,000 ML 75 ML IVCONT (05:54)
[2024-06-30 06:49] LABS: MANUAL DIFF FLAG NO
[2024-06-30 07:12] LABS: Basophils Percent Auto 0.1 % (0-2); Hematocrit 33.7 % (37.0-47.0); Hemoglobin 11.2 g/dl (12.0-16.0); Imm Gran Abs Auto 0.06 X10*3/uL (0.00-0.03); Imm Gran Pct Auto 0.6 % (0.0-0.4); Lymphocytes Absolute Auto 1.5 X10*3/uL (1.2-4.9); Mean Corpuscular HGB Conc 33.2 g/dl (31.0-35.0); Mean Corpuscular Hemoglobin 29.7 pg (27.0-33.0); Mean Corpuscular Volume 89.4 fL (80.0-98.0); Mean Platelet Volume 10.4 fL (9.4-12.3); Monocytes Absolute Auto 1.1 X10*3/uL (0.1-1.2); Monocytes Percent Auto 10.3 % (2-11); Neutrophils Absolute Auto 8.1 x10*3/uL (2.0-8.3); Platelet Count 219 X10*3/uL (160-400); Red Blood Count 3.77 X10*6/uL (4.20-5.50); Red Cell Distribution Width 13.5 % (11.0-16.0); White Blood Count 10.8 X10*3/uL (4.8-10.8)
[2024-06-30 07:17] VITALS: BP 117/57; PULSE 73; RESP 18; TEMP 36.6; O2SAT 96
[2024-06-30 07:24] LABS: Alanine Aminotransferase 18 U/L (0-31); Albumin Level 3.9 g/dL (3.5-5.0); Anion Gap 14 (12-20); Aspartate Amino Transferase 31 U/L (5-31); Bilirubin Total 0.5 mg/dL (0.0-1.0); Blood Urea Nitrogen 11 mg/dL (9-16); Calcium 8.1 mg/dL (8.4-10.2); Carbon Dioxide 19 mmol/L (22-29); Chloride 110 mmol/L (96-108); Creatinine Clr Calc Pharmacy 121.4; Estimated Glomerular Filt Rate > 60; Glucose Random 116 mg/dL (60-115); Potassium 3.3 mmol/L (3.3-5.1); Sodium 140 mmol/L (135-145); Total Protein 6.3 g/dL (6.5-8.0)
[2024-06-30 07:28] LABS: Alkaline Phosphatase 26 U/L (39-117)
[2024-06-30] MEDS: Docusate Sodium 100 MG CAPSULE PO (07:46)
[2024-06-30 07:50] VITALS: BP 117/57; PULSE 73; O2SAT 96
[2024-06-30] MEDS: methocarbamoL 750 MG TABLET PO (07:57)
--- NOTE | 2024-06-30 08:21 | HO.POSTANES ---
Post Anesthesia Evaluation Post Anesthesia Evaluation Date of Service: 06/30/24 Vital Signs: Vital Signs Temp Pulse Resp BP Pulse Ox O2 Del Method 06/30/24 07:50 73 117/57 L 96 06/30/24 07:17 97.9 F 73 18 117/57 L 96 Room Air 06/30/24 03:30 99.0 F 81 18 119/62 96 Room Air 06/30/24 00:59 100.7 F H 83 18 132/70 96 Room Air Anesthesia: General Endotracheal-GETA Mental Status: Awake Pain Control: Satisfactory Nausea/Vomiting: None Hydration: Adequate Anesthesia-Related Issues: No Anes. Related Issues
--- NOTE | 2024-06-30 09:24 | PM.DS ---
DS: Providers Provider Date of Service: 06/30/24 Date of admission: 06/29/24 06:11 Primary care physician: Todd Rice [facility] DS: Summary Time Attestation Discharge Coordination Time (in mins): 15 Quality: Safe Use of Opioids Does Pt have an Active Cancer Diagnosis on the Problem List?: No Quality: Stroke Does the patient have a stroke diagnosis?: No Physical Exam Vital Signs: Vital Signs: Last Vital Signs Temp 97.9 F 06/30/24 07:17 Pulse 73 06/30/24 07:50 Resp 18 06/30/24 07:17 BP 117/57 L 06/30/24 07:50 Pulse Ox 96 06/30/24 07:50 O2 Del Method Room Air 06/30/24 07:17 O2 Flow Rate 6 06/29/24 12:50 BMI result Body Mass Index 39.9 DS: Data Data Completed and Pending Labs on day of discharge: Laboratory Results - last 24 hr 06/30/24 06/30/24 01:55 06:07 WBC 10.8 RBC 3.77 L D Hgb 11.2 L D Hct 33.7 L D MCV 89.4 MCH 29.7 MCHC 33.2 RDW 13.5 Plt Count 219 D MPV 10.4 Immature Gran % (Auto) 0.6 H Neut % (Auto) 75.0 H Lymph % (Auto) 14.0 L [place] % (Auto) 10.3 Eos % (Auto) 0.0 Baso % (Auto) 0.1 Lymph # (Auto) 1.5 [place] # (Auto) 1.1 Eos # (Auto) 0.0 Baso # (Auto) 0.0 Abs Immat Gran (auto) 0.06 H Absolute Neuts (auto) 8.1 Absolute Nucleated RBC 0.000 Nucleated RBC % (auto) 0.0 Sodium 140 Potassium 3.3 Chloride 110 H Carbon Dioxide 19 L Anion Gap 14 BUN 11 Creatinine 0.76 Estim Creat Clear Calc 121.4 Estimated GFR > 60 Random Glucose 116 H Calcium 8.1 L D Total Bilirubin 0.5 AST 31 ALT 18 Alkaline Phosphatase 26 L Total Protein 6.3 L Albumin 3.9 Urine Color Yellow Urine Appearance Clear Urine pH 6.5 Ur Specific [place] 1.020 Urine Protein Negative Urine Glucose (UA) Negative Urine Ketones Trace Urine Blood Negative Urine Nitrite Negative Ur Leukocyte Esterase Negative Discharge Plan Discharge Anticipated Discharge Date/Time: 06/30/24 09:24 Patient Disposition: Home Health Service Discharge Diagnosis: S/P L5-S1 ALIF Referrals: Todd Rice FNP- [Primary Care Provider] - 1 Week Discharge Medications: New oxycodone 5 mg tablet See Rx Instructions .ROUTE .COMPLEX PRN (Reason: severe pain (scale score 7-10)) Qty: 30 0RF Rx Instructions: Take 1-2 tablets by mouth every 4 hours. methocarbamol 750 mg tablet 750 mg PO TID Qty: 30 0RF Continued (DME) cpap mask/supplies See Rx Instructions .Route .MEDSUPPLY Qty: 1 3RF Rx Instructions: Mask for CPAP and any other tubing or supplies. (DME) wedge pillow for under knees See Rx Instructions .Route .MEDSUPPLY Qty: 1 0RF Rx Instructions: As directed cyanocobalamin (vitamin B-12) 1,000 mcg/mL solution 1,000 mcg IM .Q3 weeks 21 Days Qty: 25 2RF Rx Instructions: In office injections scopolamine base 1 mg over 3 days patch 3 day 1 patch transdermal Q3D PRN (Reason: motion sickness) Qty: 24 0RF Rx Instructions: Uses for about a week after doing her Vitamin B-12 injection. atorvastatin 20 mg tablet 20 mg PO BEDTIME 90 Days Qty: 90 0RF (DME) BD Integra Syringe 3 mL 25 gauge x 1 syringe See Rx Instructions .Route Qty: 100 1RF Rx Instructions: q 3 weeks trazodone 100 mg tablet 200 mg PO BEDTIME norethindrone acetate 5 mg tablet 10 mg PO BEDTIME escitalopram oxalate 20 mg tablet 20 mg PO BEDTIME prochlorperazine maleate [Compazine] 10 mg Tablet 10 mg PO BID PRN (Reason: Nausea) biotin 5 mg Tablet 5 mg PO DAILY lorazepam 1 mg Tablet 1 mg PO DAILY PRN (Reason: Anxiety) topiramate 100 mg tablet 300 mg PO BEDTIME Held (DME) sacroiliac cushion See Rx Instructions .Route .MEDSUPPLY Qty: 1 0RF Hold Instructions: Resume on 06/30/24. old order for previous Si joint fusion Rx Instructions: As directed (DME) crutches See Rx Instructions .Route .MEDSUPPLY Qty: 1 0RF Hold Instructions: Resume on 06/30/24. old order for previous SI joint fusion Rx Instructions: crutches dx: sacroiliac fusion patient non weight bearing right leg methocarbamol 750 mg tablet 750 mg PO TID 12 Days Qty: 36 0RF Hold Instructions: Resume on 06/30/24. Patient is out of this medication, ordered new Rx oxycodone 10 mg tablet 10 mg PO Q8H PRN (Reason: Pain, Moderate(Pain Scale 4-6)) 12 Days Qty: 36 0RF Hold Instructions: Resume on 06/30/24. Patient states she is out of this medication Rx Instructions: Partial Fill upon patient request. Discharge Orders: Discharge Order (Routine); Ordered 06/30/24 Ordered By: Daniel Kaufman Diet: Advance to usual diet Activity on Discharge: As tolerated Stand Alone Forms: Patient Portal Discharge page Print Language: Northern Irish Care Plan Goals: Return to normal activity as tolerated Health Concerns: None Plan of Treatment: Follow-up in clinic in 2-3 weeks Assessment: POD: 1 Procedure: L5-S1 ALIF Nubia is a pleasant 44 year old female who is s/p L5-S1 ALIF completed yesterday. She was seen sitting upright in bed eating breakfast this morning on . Patient reports she is up walking around mobilizing with physical therapy and is otherwise doing well. She feels her symptoms are much better than pre-operatively. She still reports mild pain in her low back and R hip, with good relief with current pain medication. She is voiding well, tolerating diet. Overnight hospitalist signed out to us this morning that she had an isolated episode of fever overnight. They ordered labs and blood cultures to rule out possible infection. The patient denies any chills, sweating, rigors or excessive pain. Afebrile, vital signs stable. Full strength 5/5 UE / LE. Back dressings have some staining without signs of hematoma. No active sanguineous drainage. Area is dry. Plan: Pleasant 44 year old female who is s/p L5-S1 ALIF completed yesterday. I reviewed all pertinent laboratory values which appear within normal limits given the patient's previous baseline labs. Her blood cultures are still pending but we have a very low suspicion of infection given that it was an isolated incident of fever overnight, with no associated infectious symptoms. The patient's blood cultures are still pending but we believe this is likely secondary to atelectasis. I stressed the importance of incentive spirometry to the patient and encouraged her to continue using her spirometer at home. I sent in a prescription for oxycodone and methocarbamol here to [facility] [place]. I will also order home health services (PT) for the patient. I discussed this case with the attending neurosurgeon Dr. Valle who understands and agrees to this plan. Patient meets criteria to be medically discharged home. Daniel Valle MD,PhD [facility]
--- NOTE | 2024-06-30 09:36 | P.F2F_ITS ---
Service Date Service Date: 06/30/24 Encounter Date of encounter: 06/30/24 Reasons for Services Signs and symptoms assessed: s/p L5-S1 ALIF Reason for physical therapy: home safety and mobility, therapeutic exercises and ADL training Homebound: Leaving the home is medically contraindicated at this time without the asist of a device and/or another person due th the listed conditions above and below. Reason homebound: unsteady gait / fall risk, pain with ambulation, poor balance / fall risk and weakness related to hospital stay Certification: Based on the above findings, I certify that this patient is confined to the home and needs intermittent intermediate care, physical therapy and/or speech therapy, or continues to need occupational therapy. The patient is under my care, and I have initiated the establishment of the plan of care. The patient will be followed by a physician who will periodically review the plan of care. Time Spent With Patient Time: Total time managing care of this patient today _15__ minutes.
--- NOTE | 2024-06-30 09:37 | HO.NEURO.PN ---
Neurosurgery Operative Note Date of Service: 06/30/24 Narrative: POD: 1 Procedure: L5-S1 ALIF Nubia is a pleasant 44 year old female who is s/p L5-S1 ALIF completed yesterday. She was seen sitting upright in bed eating breakfast this morning on 3-S. Patient reports she is up walking around mobilizing with physical therapy and is otherwise doing well. She feels her symptoms are much better than pre-operatively. She still reports mild pain in her low back and R hip, with good relief with current pain medication. She is voiding well, tolerating diet. Overnight hospitalist signed out to us this morning that she had an isolated episode of fever overnight. They ordered labs and blood cultures to rule out possible infection. The patient denies any chills, sweating, rigors or excessive pain. Afebrile, vital signs stable. Full strength 5/5 UE / LE. Back dressings have some staining without signs of hematoma. No active sanguineous drainage. Area is dry. Plan: Pleasant 44 year old female who is s/p L5-S1 ALIF completed yesterday. I reviewed all pertinent laboratory values which appear within normal limits given the patient's previous baseline labs. Her blood cultures are still pending but we have a very low suspicion of infection given that it was an isolated incident of fever overnight, with no associated infectious symptoms. The patient's blood cultures are still pending but we believe this is likely secondary to atelectasis. I stressed the importance of incentive spirometry to the patient and encouraged her to continue using her spirometer at home. I sent in a prescription for oxycodone and methocarbamol here to [facility] pharmacy. I will also order home health services (PT) for the patient. I discussed this case with the attending neurosurgeon Dr. Valle who understands and agrees to this plan. Patient meets criteria to be medically discharged home. Daniel Valle MD,PhD [facility]
[2024-06-30] MEDS: oxyCODONE HCl Immed Release 5 MG TABLET 10 MG PO (09:56)
--- NOTE | 2024-06-30 10:22 | MHC.CM.PN ---
IMM delivered. Patient lives in an apartment w/ her sister. Ambulates w/ cane, walker PRN. 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 PCP Todd Rice DRIVER UTILITY WORKER Reports she has an HCP naming her sister, Francia, as HCA. Copy requested. Will bring to f/u @ spine clinic. DP: Medically cleared for dc home w/ family support. PT not recommending any skilled services at this time. PA aware. Sister will transport. RN aware.
[2024-06-30] MEDS: HYDROmorphone HCl 2 MG TABLET PO (11:41)
== END 2024-06-30 12:11 | disposition home or self-care (01) | DRG 451 ==
LOC: HO.SSSA 06:37 → HO.S3 16:33
PROVIDERS: Internal Medicine; Nurse Practitioner; Admitting Provider Neurological Surgery; PCP Nurse Practitioner Family; Visit Provider Neurological Surgery
PROC: 0SG30A0 Fusion of Lumbosacral Joint with Interbody Fusion Device, Anterior Approach, Anterior Column, Open Approach (ICD-10-PCS; principal; 2024-06-29 07:30)
DX: M51.17 Intervertebral disc disorders with radiculopathy, lumbosacral region (principal); K43.2 Incisional hernia without obstruction or gangrene; Z87.891 Personal history of nicotine dependence; Z79.899 Other long term (current) drug therapy
CPT/HCPCS: 36415; 72020; 80053; 81003; 81025; 82607; 82746; 84439; 84443; 85025; 85610; 85730; 86850; 86900; 86901; 87040; 97162; C1713; C1889; J0131; J0690; J1100; J1171; J1885; J2003; J2405; J2704; J3010; L8699

== ENCOUNTER → 2024-06-29 06:11 | Outpatient (BNV) | payer OTHER, SELFPAY | PROVIDERS: Admitting Provider Neurological Surgery; PCP Nurse Practitioner Family; Visit Provider Surgery | DX: M51.360 Other intervertebral disc degeneration, lumbar region with discogenic back pain only (principal); Z48.89 Encounter for other specified surgical aftercare | CPT/HCPCS: 20930; 22558; 22612; 22840; 22845; 22853; 99024; 99499; G0180 ==

== ENCOUNTER 2024-07-20 15:08 | Outpatient (AMB) | payer OTHER, SELFPAY ==
--- NOTE | 2024-07-20 15:39 | A.SPINEOV_ITS ---
Intake Visit Reasons: 1st post-op Intake Note: Nubia is here today for her 1st office visit. Emergency Spill Response Technician Required: No Allergies aloe vera [ALOE VERA] Allergy (Intermediate, Verified 06/14/24 15:11) RASH metoclopramide [From REGLAN] Allergy (Intermediate, Verified 06/14/24 15:11) antsy allopurinol Allergy (Unknown, Verified 06/14/24 15:11) does not remember gabapentin Adverse Reaction (Intermediate, Verified 06/14/24 15:11) Muscle cramps pregabalin [From Lyrica] Adverse Reaction (Intermediate, Verified 06/14/24 15:11) Muscle cramps Assessment & Plan Assessment & Plan (1) S/P spinal fusion: Code(s): Z98.1 - Arthrodesis status Category: Surgical Plan: Nubia is a pleasant 44-year-old female comes in today for her 1st postoperative visit. She reports that she has been having quite a lot of pain since her surgery. To recap she had an L5-S1 ALIF completed with a large abdominal hernia mesh repair which was completed during the surgery as well. She initially was started on oxycodone which he found was not strong enough to help mitigate her pain. She was subsequently transitioned to Dilaudid which she reports worked better for pain control. She has been ambulating around her home, but has not been going up and down the stairs at her condo, and has been largely homebound since her surgery. She lives with her sister who has been aiding her care. When describing her pain she states it shoots down the posterior aspect of her right leg, terminating about midway down the calf. She describes it as a sharp shooting pain. She also reports that her baseline stress incontinence seems to have gotten slightly worse since the surgery, and is also accompanied by numbness in her groin. She denies any fecal incontinence, and still retains feeling in her thighs and the rest of her lower extremities. She does report that her anterior incision site has been slightly leaking intermittently since the surgery causing her to bandage the area. On examination today Nubia has increased hypoesthesia near her groin, in comparison to her distal extremities. Her anterior incision site appears clean, dry with no active drainage. There is a small opening near the superior portion of the incision, along with a small opening near the inferior portion of the incision. These areas appear scabbed over, and are not painful to touch. There is no palpable fluctuance or temperature change/erythema. After evaluating the patient alongside the attending neurosurgeon Dr. Valle, we ordered a set of dynamic lumbar spine x-rays for the patient to complete directly after this visit to evaluate for any gross instability or instrument failure in the setting of perineal numbness and worsening stress incontinence. We will be following that scan up with a STAT CT scan both to evaluate for exact placement of instrumentation and to see if there is any gross impingement of the central canal/foramen. The overall likelihood of a cauda equina syndrome is low at this time given that the patient maintain strength in her bilateral lower extremities, the numbness as well localized in his directly inferior to the large incision in her abdomen, and there is no fecal incontinence accompanying the known stress incontinence that the patient has. We advised her to follow up with Dr. Bear regarding the anterior incision for evaluation. We will follow up with the patient again in 6 weeks, she was advised to call our office if any new or worsening symptoms occur. I will also call and discuss her CT scan results with her. I will switch her Dilaudid back to oxycodone per Dr. Valle. Daniel Valle MD,PhD [facility] Orders: Orders CT lumbar spine wo IV con Today Z98.1 - Arthrodesis status XR lumbar spine 4V min Today Z98.1 - Arthrodesis status Coding Level of Care Code Global (67590) Diagnoses S/P spinal fusion Z98.1
== END 2024-07-20 16:09 | disposition home or self-care (01) ==
PROVIDERS: PCP Nurse Practitioner Family; Visit Provider Neurological Surgery
DX: Z98.1 Arthrodesis status (principal)
CPT/HCPCS: 99024

== ENCOUNTER 2024-07-20 15:08 | Outpatient (REF) | payer OTHER, SELFPAY ==
--- NOTE | ~2024-07-20 | XR_ITS ---
EXAMINATION: XR LUMBAR SPINE CLINICAL INFORMATION: Arthrodesis status Z98.1. COMPARISON: XR Lumbar spine 06/29/2024 TECHNIQUE: 4 views of lumbar spine were obtained. FINDINGS: The patient is status post fusion with intervertebral disc spacer at L5-S1, no evidence of hardware complication. Mild to moderate degenerative change in the lumbar spine with disc space narrowing bony spurring and facet arthropathy. No appreciable listhesis. Sacroiliac joints intact. XR/XR lumbar spine 4V min IMPRESSION: Status post fusion at L5-S1 without evidence of hardware complication. Electronically signed by: Jeffrey Morales MD 08/23/2024 09:40 AM [facility]
== END 2024-07-20 15:09 | disposition home or self-care (01) ==
LOC: HO.HOSX 15:08
PROVIDERS: PCP Nurse Practitioner Family; Visit Provider Neurological Surgery
DX: Z98.1 Arthrodesis status (principal)
CPT/HCPCS: 72110; 99212

== ENCOUNTER 2024-08-01 14:53 | Outpatient (REF) | payer OTHER, SELFPAY ==
--- NOTE | ~2024-08-01 | CT_ITS ---
EXAMINATION: CT lumbar spine wo IV con CLINICAL INFORMATION: Arthrodesis status COMPARISON: CT lumbar spine 03/02/2024 TECHNIQUE: Helical CT images were acquired through the lumbar spine without the use of intravenous contrast. Axial reconstructions were reviewed along with sagittal and coronal MPRs. This CT examination was performed using dose optimization techniques as appropriate, variously including the following: * Automated exposure control * Adjustment of mA and/or kV according to patient size (this includes techniques or standardized protocols for targeted exams where dose is matched to indication/reason for exam; i.e. extremities or head) Use of iterative reconstruction technique DLP: 1385 mGy-cm FINDINGS: Intact bipedicular L5 and S1 posterior spinal fusion hardware with an intervertebral disc spacer. Mild bilateral L5-S1 neural foraminal stenosis. Sagittal alignment is essentially anatomic. No acute fracture. In vertebral body heights and intervertebral disc spaces are maintained. No significant degenerative disc disease. No significant bony canal stenosis. Stable procedural defect in the right sacral ala. The paraspinal soft tissues are unremarkable. Sigmoid colon anastomotic sutures partially visualized. IUD in place. The visualized uterus and bladder are normal. The aorta is nonaneurysmal with mild scattered atheromatous calcifications. CT/CT lumbar spine wo IV con IMPRESSION: 1. Intact bipedicular L5-S1 posterior spinal fusion hardware with an intervertebral disc spacer. 2. No acute fracture or traumatic subluxation. Electronically signed by: Nette Mcmahon DO 08/03/2024 06:08 PM [facility] [place]
== END 2024-08-01 14:54 | disposition home or self-care (01) ==
LOC: HO.CT 14:53
PROVIDERS: PCP Nurse Practitioner Family; Visit Provider Physician Assistant
DX: Z98.1 Arthrodesis status (principal)
CPT/HCPCS: 72131

== ENCOUNTER 2024-08-22 06:32 | Inpatient (IN) | payer OTHER, SELFPAY ==
[2024-08-22] VITALS (8 sets, daily range): BP systolic 130–165; BP diastolic 72–99; PULSE 58–115; RESP 16–20; TEMP 36.3–36.9; O2SAT 93–99; BMI 38.6; BMI 39.3
--- NOTE | ~2024-08-22 | CT_ITS ---
EXAMINATION: CT ABDOMEN AND PELVIS WITH CONTRAST CLINICAL INFORMATION: Abdominal pain. Status post hernia repair. Status post lumbar fusion. COMPARISON: CT dated April 15, 2024 and April 09, 2015. TECHNIQUE: Multidetector volumetric images were obtained from the superior aspect of the liver through the pubic symphysis following administration 85 mL of Omnipaque 350 intravenous contrast. Sagittal and coronal reformatted images were obtained on the technologist's workstation. Oral contrast: No This CT examination was performed using dose optimization techniques as appropriate, variously including the following: *Automated exposure control *Adjustment of mA and/or kV according to patient size (this includes techniques or standardized protocols for targeted exams where dose is matched to indication/reason for exam; i.e. extremities or head) *Use of iterative reconstruction technique DLP: 1082 mGy-cm FINDINGS: LUNG BASES: No acute airspace disease or gross pulmonary nodules. LIVER, GALLBLADDER, AND BILIARY TREE: Liver measures 15 cm. There are less than 2 cm hypodensities in the anterior in the dome of the left hepatic lobe. The main portal veins, hepatic veins and intrahepatic portion of the IVC are patent. No pericholecystic fluid collection or gallbladder wall thickening. No intrahepatic or extrahepatic biliary ductal dilatation. PANCREAS: No focal mass. No peripancreatic fluid collection. No main pancreatic ductal dilatation. SPLEEN: 9 cm. No focal mass. ADRENAL GLANDS: No nodular lesions. KIDNEYS AND URETERS: No hydronephrosis. No renal mass. Normal enhancement pattern of the renal parenchyma. BLADDER: Fluid-filled. GASTROINTESTINAL TRACT: Abundant stool within the large intestine. Sutures at the sigmoid colon. No intestinal obstruction pattern. No ascites. No pneumoperitoneum. No pneumatosis intestinalis. Appendix is normal. ABDOMINAL WALL: Status post mesh procedure placement in the periumbilical and suprapubic. Edema pattern in the the fat planes of the lower abdomen and pelvis wall. LYMPH NODES: Nonspecific prominent lymph nodes in the retroperitoneum and mesenteric. VASCULAR: No aneurysm or dissection abdominal aorta. Mixed plaques throughout the distal abdominal aorta and iliac arteries. PELVIC VISCERA: Radiopaque T-shaped contraceptive device in the uterus. No gross masses in the adnexa. OSSEOUS STRUCTURES: Status post posterior lumbar fusion L5-S1 with transpedicular screws. Status post intervertebral disc spacer at L5-S1. Multilevel thoracolumbar spondylosis. No acute fracture. Subtle grade 1 retrolisthesis L2-3, L3-4 and L4-5. CT/CT abdomen pelvis w IV con IMPRESSION: Abundant stool without intestinal obstruction pattern. Edema pattern in the deep fat planes of the mid lower abdominal wall without gross fluid collections. Fleischner guidelines were followed. Electronically signed by: Pierce Salazar MD 08/22/2024 09:26 AM [facility]
--- NOTE | 2024-08-22 06:57 | ED_ITS ---
HPI - Abdominal Pain General Chief Complaint: Abdominal Pain Stated Complaint: severe abd pain Time Seen by Provider: 08/22/24 06:51 Source: patient, RN notes reviewed and old records reviewed Mode of arrival: ambulatory History of Present Illness ED Provider: Jana Guerra PA-C HPI narrative: 44-year-old female with a past medical history diverticulitis, stress incontinence, anxiety, depression, HLD, anemia, sleep apnea, HLD, bipolar, s/p L5-S1 ALIF with large abdominal hernia mesh repair completing during surgery in May, presenting to the ED complaining of worsening LLQ abdominal pain, nausea, constipation x few days, and groin numbness since surgery. Also reports baseline stress incontinence has been slightly worse since surgery. Denies fever, chills, vomiting, diarrhea and, urinary retention, fecal incontinence, dysuria Related Data Home Medications ?Medication ?Instructions ?Recorded ?Confirmed trazodone 100 mg tablet 200 mg PO BEDTIME 09/19/21 08/22/24 topiramate 100 mg tablet 300 mg PO BEDTIME 01/08/23 08/22/24 escitalopram oxalate 20 mg tablet 20 mg PO BEDTIME 03/02/24 08/22/24 norethindrone acetate 5 mg tablet 10 mg PO BEDTIME 03/02/24 08/22/24 biotin 5 mg tablet 5 mg PO DAILY 06/16/24 08/22/24 lorazepam 1 mg tablet 1 mg PO DAILY PRN Anxiety 06/16/24 08/22/24 prochlorperazine maleate 10 mg 10 mg PO BID PRN Nausea 06/16/24 08/22/24 tablet (Compazine) Previous Rx's ?Medication ?Instructions ?Recorded cpap mask/supplies #1 ea 09/09/21 sacroiliac cushion #1 ea 05/25/23 wedge pillow for under knees #1 ea 05/25/23 crutches #1 ea 11/12/23 cyanocobalamin (vitamin B-12) 1,000 mcg IM .Q3 weeks 21 days #25 11/26/23 1,000 mcg/mL injection solution mL scopolamine base 1 mg over 3 days 1 patch transdermal Q3D PRN motion 01/08/24 transdermal patch sickness #24 ea syringe with needle, safety 3 mL #100 ea 06/06/24 25 gauge x 1 (BD Integra Syringe) methocarbamol 750 mg tablet 750 mg PO TID #30 tabs 08/11/24 atorvastatin 20 mg tablet 20 mg PO BEDTIME #90 tabs 08/15/24 oxycodone 5 mg tablet 5 mg PO BID PRN severe pain (scale 08/18/24 score 7-10) #14 tabs Allergies Allergy/AdvReac Type Severity Reaction Status Date / Time aloe vera [ALOE VERA] Allergy Intermediate RASH Verified 08/22/24 06:45 metoclopramide [From REGLAN] Allergy Intermediate antsy Verified 08/22/24 06:45 allopurinol Allergy Unknown does not Verified 08/22/24 06:45 remember gabapentin AdvReac Intermediate Muscle Verified 08/22/24 06:45 cramps pregabalin [From Lyrica] AdvReac Intermediate Muscle Verified 08/22/24 06:45 cramps Review of Systems Review of Systems Yes all other systems are reviewed and are negative Constitutional: Reports as per HPI Denies Abnormal speech present PMFSH Past Medical History Attestation statement: The following information was validated with the patient. Source: old records reviewed Medical History History of marijuana use Arthritis Diverticulitis Stress incontinence Anxiety Depression Vitamin B12 deficiency Elevated cholesterol Anemia Sacroiliitis Sleep apnea Arthritis of knee, left History of abdominal hernia Dyslipidemia Bipolar 2 disorder Surgical History History of lumbar fusion H/O colonoscopy History of partial hypophysectomy H/O hernia repair History of colostomy reversal History of elbow surgery History of left oophorectomy History of partial surgical removal of colon History of total right knee replacement Family History Family History Father Hypertension Mother Pre-diabetes Hypertension Sister Cervical cancer Social History Social History Household Members: Family Household Members Other:: sister Housing: Apartment Housing Other:: third floor Are you a primary women's health care nurse practitioner to a significant other at home: No Do you presently have visiting nurse or other home services: Yes Alcohol intake: current Alcohol intake frequency: does not drink Patient Tobacco Use Status: Former Tobacco user Tobacco use type: Smokeless Tobacco Cigarettes Per Day: 4 Years Smoked: 20 years Smoked in Last 30 Days: No e-Cigarette/Vaping Use: Never Used Second Hand Smoke Exposure: No Use of substances other than those prescribed or required for medical reasons: No Substance Use Type: Marijuana Advance Directives: No Advance Directives Information Provided: Yes service: No Current occupational status: disabled Cognitive needs: No Hearing needs: No Vision needs: No Physical Exam ED Vital Signs: Vital Signs - 24 hr 08/22/24 06:41 08/22/24 09:53 Temperature 98.3 F 98.3 F Pulse Rate 115 H 69 Respiratory Rate 20 20 Blood Pressure 155/99 H 142/77 H Pulse Oximetry 96 99 Oxygen Delivery Method Room Air Room Air BMI result Body Mass Index 38.6 Const Other: Tearful, appears uncomfortable General: cooperative and no acute distress Orientation/consciousness: patient oriented x3 Limitations: no limitations HENMT Head: Yes normal to inspection and Yes atraumatic Ears: hearing grossly normal bilaterally General nose exam: Normal external nose present Face and sinus: Yes normal facial exam Eyes General: appearance normal, both eyes and all related structures EOM: EOMs intact bilaterally Neck Neck: Yes normal visual inspection and Yes no meningeal signs Resp Effort & Inspection: normal respiratory effort and no respiratory distress Auscultation: clear to auscultation bilaterally Cardio Rate: regular rate Heart sounds: S1 normal heart sound present and S2 normal heart sound present GI Other: Old incisional scars noted without dehiscence or erythema Inspection: Yes normal to inspection Palpation (GI): Soft to palpation, Tenderness to palpation present (GI) (lower abdominal) with no rebound tenderness, no guarding and not rigid General: Yes no CVA tenderness Back/Spine/Pelvis Other: Lumbar old surgical scars noted. No dehiscence/surrounding erythema. Lower lumbar midline/paraspinal tenderness noted Back: no CVA tenderness Skin Rashes: no rashes Wounds: no wounds Neuro Other: No saddle anesthesia. Sensation intact to light touch through perianal and vaginal area General: patient oriented x3, tone normal, moves all extremities, no meningeal signs, no focal motor deficits and CN's II-XI intact bilaterally Cranial nerves: Yes CN's II-XII intact bilaterally Cognition (Neuro): normal cognition Speech: No Abnormal speech present Gait exam (Neuro): Normal gait present Motor exam (neuro): 5/5 motor strength present throughout Extrem General: Yes normal to inspection Course Course Course Narrative: -[id number]--no leukocytosis. Labs otherwise reassuring. UA negative CT abdomen pelvis w IV con IMPRESSION: Abundant stool without intestinal obstruction pattern. Edema pattern in the deep fat planes of the mid lower abdominal wall without gross fluid collections. Fleischner guidelines were followed. > consult patient's surgeon Dr. Beaver -[id number]--patient states she is still in significant amount of pain. Does not feel comfortable for discharge home. Pending surgeon consult >1120--spoke with patient's surgeon who states he saw patient in the office about 1 week ago, does not appear to be surgical issue. Recommends admission for needed pain control/constipation/bowel regimen. Will discuss case with hospitalist Medical Decision Making Medical Decision Making [facility] Narrative: 44-year-old female with a past medical history diverticulitis, stress incontinence, anxiety, depression, HLD, anemia, sleep apnea, HLD, bipolar, s/p L5-S1 ALIF with large abdominal hernia mesh repair completing during surgery in May, presenting to the ED complaining of worsening LLQ abdominal pain, nausea, constipation x few days, and groin numbness since surgery. On exam tachycardic, tearful, appears uncomfortable, abdomen soft with lower tenderness, no rebound or guarding, no saddle anesthesia or decreased sensation to light touch. Low back tenderness elicited. Concern for acute on chronic postop pain vs postop complication including abscess/seroma vs appendicitis/diverticulitis or ?recurrent hernia. Lower suspicion for cauda equina/cord compression with symptoms since surgery and strength intact to bilateral lower extremities. Patient had lumbar CT at on 08/01/2024 s/p postop appointment with Dr. Valle. CT showed intact by pendular L5-S1 posterior spinal fusion hardware Low suspicion for severe sepsis at this time. Vital sign abnormalities likely from pain Plan: Labs, UA, lactic/blood cultures, CT AP, IVF, pain control, re-evaluate Please refer to course for remaining clinical decision making, interpretation of labs/imaging results, and discussions with consultants and/or family members. Differential Diagnosis Differential Diagnoses: The differential diagnosis associated with the presentation includes As above Admission/Observation Consideration of admission/observation: Escalation of care including admission/observation considered Consult Healthcare Provider Management of the patient was discussed with: Cupola Tender Lab Data [facility] Lab Attestation statement: I reviewed the patient's lab results. 08/22/24 07:18 08/22/24 07:18 Labs: Lab Results 08/22/24 08/22/24 08/22/24 Range/Units 07:18 07:18 07:18 WBC 5.9 (4.8-10.8) X10*3/uL RBC 4.63 D (4.20-5.50) X10*6/uL Hgb 12.9 (12.0-16.0) g/dl Hct 40.0 (37.0-47.0) % MCV 86.4 (80.0-98.0) fL MCH 27.9 (27.0-33.0) pg MCHC 32.3 (31.0-35.0) g/dl RDW 14.5 (11.0-16.0) % Plt Count 295 D (160-400) X10*3/uL MPV 10.2 (9.4-12.3) fL Immature Gran % (Auto) 0.2 (0.0-0.4) % Neut % (Auto) 55.4 (45-73) % Lymph % (Auto) 32.9 (20-40) % [place] % (Auto) 9.8 (2-11) % Eos % (Auto) 1.2 (0-4) % Baso % (Auto) 0.5 (0-2) % Lymph # (Auto) 1.9 (1.2-4.9) X10*3/uL [place] # (Auto) 0.6 (0.1-1.2) X10*3/uL Eos # (Auto) 0.1 (0.0-0.4) X10*3/uL Baso # (Auto) 0.0 (0.0-0.2) X10*3/uL Abs Immat Gran (auto) 0.01 (0.00-0.03) X10*3/uL Absolute Neuts (auto) 3.3 (2.0-8.3) x10*3/uL Absolute Nucleated RBC 0.000 (0.0-0.012) X10*3/uL Nucleated RBC % (auto) 0.0 (0.0-0.2) /100WBC PT 12.3 (10.9-12.4) SEC INR 1.1 (0.9-1.1) Sodium 140 (135-145) mmol/L Potassium 3.7 (3.3-5.1) mmol/L Chloride 110 H (96-108) mmol/L Carbon Dioxide 20 L (22-29) mmol/L Anion Gap 14 (12-20) BUN 8 L (9-16) mg/dL Creatinine 0.83 (0.5-1.4) mg/dL Estim Creat Clear Calc 110.2 Estimated GFR > 60 Random Glucose 111 (60-115) mg/dL Lactic Acid 1.6 (0.5-2.0) mmol/L Calcium 8.8 D (8.4-10.2) mg/dL Magnesium 2.0 (1.6-2.6) mg/dL Total Bilirubin 0.4 0.4 (0.0-1.0) mg/dL Direct Bilirubin 0.1 (0.0-0.5) mg/dL AST 31 22 (5-31) U/L ALT 18 (0-31) U/L Alkaline Phosphatase (39-117) U/L Total Protein (6.5-8.0) g/dL Albumin (3.5-5.0) g/dL Lipase (8-78) U/L Urine Color Urine Appearance Urine pH (5.0-9.0) Ur Specific [place] (1.005-1.025) Urine Protein (Neg-Trace) mg/dL Urine Glucose (UA) (Negative) mg/dL Urine Ketones (Negative) mg/dL Urine Blood (Negative) Urine Nitrite (Negative) Ur Leukocyte Esterase (Negative) Urine RBC (0-2) /HPF Urine WBC (0-5) /HPF Ur Squamous Epith Cells (0-2) /HPF Urine Bacteria (None Seen) Hyaline Casts (0-2) /LPF 08/22/24 08/22/24 08/22/24 Range/Units 07:18 07:18 07:18 WBC (4.8-10.8) X10*3/uL RBC (4.20-5.50) X10*6/uL Hgb (12.0-16.0) g/dl Hct (37.0-47.0) % MCV (80.0-98.0) fL MCH (27.0-33.0) pg MCHC (31.0-35.0) g/dl RDW (11.0-16.0) % Plt Count (160-400) X10*3/uL MPV (9.4-12.3) fL Immature Gran % (Auto) (0.0-0.4) % Neut % (Auto) (45-73) % Lymph % (Auto) (20-40) % [place] % (Auto) (2-11) % Eos % (Auto) (0-4) % Baso % (Auto) (0-2) % Lymph # (Auto) (1.2-4.9) X10*3/uL [place] # (Auto) (0.1-1.2) X10*3/uL Eos # (Auto) (0.0-0.4) X10*3/uL Baso # (Auto) (0.0-0.2) X10*3/uL Abs Immat Gran (auto) (0.00-0.03) X10*3/uL Absolute Neuts (auto) (2.0-8.3) x10*3/uL Absolute Nucleated RBC (0.0-0.012) X10*3/uL Nucleated RBC % (auto) (0.0-0.2) /100WBC PT (10.9-12.4) SEC INR (0.9-1.1) Sodium (135-145) mmol/L Potassium (3.3-5.1) mmol/L Chloride (96-108) mmol/L Carbon Dioxide (22-29) mmol/L Anion Gap (12-20) BUN (9-16) mg/dL Creatinine (0.5-1.4) mg/dL Estim Creat Clear Calc Estimated GFR Random Glucose (60-115) mg/dL Lactic Acid (0.5-2.0) mmol/L Calcium (8.4-10.2) mg/dL Magnesium (1.6-2.6) mg/dL Total Bilirubin (0.0-1.0) mg/dL Direct Bilirubin (0.0-0.5) mg/dL AST (5-31) U/L ALT 17 (0-31) U/L Alkaline Phosphatase 43 42 (39-117) U/L Total Protein 7.6 7.2 (6.5-8.0) g/dL Albumin 4.6 (3.5-5.0) g/dL Lipase (8-78) U/L Urine Color Urine Appearance Urine pH (5.0-9.0) Ur Specific [place] (1.005-1.025) Urine Protein (Neg-Trace) mg/dL Urine Glucose (UA) (Negative) mg/dL Urine Ketones (Negative) mg/dL Urine Blood (Negative) Urine Nitrite (Negative) Ur Leukocyte Esterase (Negative) Urine RBC (0-2) /HPF Urine WBC (0-5) /HPF Ur Squamous Epith Cells (0-2) /HPF Urine Bacteria (None Seen) Hyaline Casts (0-2) /LPF 08/22/24 08/22/24 Range/Units 07:18 08:51 WBC (4.8-10.8) X10*3/uL RBC (4.20-5.50) X10*6/uL Hgb (12.0-16.0) g/dl Hct (37.0-47.0) % MCV (80.0-98.0) fL MCH (27.0-33.0) pg MCHC (31.0-35.0) g/dl RDW (11.0-16.0) % Plt Count (160-400) X10*3/uL MPV (9.4-12.3) fL Immature Gran % (Auto) (0.0-0.4) % Neut % (Auto) (45-73) % Lymph % (Auto) (20-40) % [place] % (Auto) (2-11) % Eos % (Auto) (0-4) % Baso % (Auto) (0-2) % Lymph # (Auto) (1.2-4.9) X10*3/uL [place] # (Auto) (0.1-1.2) X10*3/uL Eos # (Auto) (0.0-0.4) X10*3/uL Baso # (Auto) (0.0-0.2) X10*3/uL Abs Immat Gran (auto) (0.00-0.03) X10*3/uL Absolute Neuts (auto) (2.0-8.3) x10*3/uL Absolute Nucleated RBC (0.0-0.012) X10*3/uL Nucleated RBC % (auto) (0.0-0.2) /100WBC PT (10.9-12.4) SEC INR (0.9-1.1) Sodium (135-145) mmol/L Potassium (3.3-5.1) mmol/L Chloride (96-108) mmol/L Carbon Dioxide (22-29) mmol/L Anion Gap (12-20) BUN (9-16) mg/dL Creatinine (0.5-1.4) mg/dL Estim Creat Clear Calc Estimated GFR Random Glucose (60-115) mg/dL Lactic Acid (0.5-2.0) mmol/L Calcium (8.4-10.2) mg/dL Magnesium (1.6-2.6) mg/dL Total Bilirubin (0.0-1.0) mg/dL Direct Bilirubin (0.0-0.5) mg/dL AST (5-31) U/L ALT (0-31) U/L Alkaline Phosphatase (39-117) U/L Total Protein (6.5-8.0) g/dL Albumin 4.5 (3.5-5.0) g/dL Lipase 21 (8-78) U/L Urine Color Yellow Urine Appearance Clear Urine pH 6.5 (5.0-9.0) Ur Specific [place] <= 1.005 (1.005-1.025) Urine Protein Negative (Neg-Trace) mg/dL Urine Glucose (UA) Negative (Negative) mg/dL Urine Ketones Negative (Negative) mg/dL Urine Blood Negative (Negative) Urine Nitrite Negative (Negative) Ur Leukocyte Esterase Negative (Negative) Urine RBC 0-2 (0-2) /HPF Urine WBC 0-5 (0-5) /HPF Ur Squamous Epith Cells 0-2 (0-2) /HPF Urine Bacteria None Seen (None Seen) Hyaline Casts 0-2 (0-2) /LPF Independent Interpretation I performed an independent interpretation of an: CT Scan Radiology Impression Discussion of test interpretation with radiology: I have reviewed the radiologist's reading. External Record Review External record reviewed: Inpatient record, Office record, Outpatient record, Prior outpatient labs, Prior outpatient radiology, Primary care record and Outside ED record Tests considered The following testing was considered but not selected: As above Prescription Management I considered prescription management with: Pain Medication and Antibiotic Chronic Conditions Patient?s care impacted by: Other Social Determinants Patient?s care significantly limited by Social Determinants of Health including: Other Social Determinant of Health Medications Administered Generic Name Dose Route Start Last Admin Trade Name Freq PRN Reason Stop Dose Admin Hydromorphone HCl 1 mg 08/22/24 12:03 08/22/24 15:01 Hydromorphone Hcl 1 Mg/Ml Syringe IVPUSH 1 mg Q3H PRN Administration Pain, Severe (Pain Scale 7-10) Protocol Ondansetron HCl 4 mg 08/22/24 13:17 08/22/24 13:36 Ondansetron Hcl 4 Mg/2 Ml Vial IVPUSH 4 mg Q6H PRN Administration Nausea Sodium Chloride 3 ml 08/22/24 16:00 08/22/24 15:54 0.9 % Sodium Chloride Flush 3 Ml Syringe IVFLUSH 3 ml QSHIFT VIOLETA Administration Discontinued Medications Generic Name Dose Route Start Last Admin Trade Name Freq PRN Reason Stop Dose Admin Hydromorphone HCl 1 mg 08/22/24 08:07 08/22/24 08:48 Hydromorphone Hcl 1 Mg/Ml Syringe IVPUSH 08/22/24 08:08 1 mg ONCE ONE Administration Protocol Sodium Chloride 1,000 mls @ 999 mls/hr 08/22/24 07:15 08/22/24 10:29 Ns IV 08/22/24 08:15 Infused .Q1H1M VIOLETA Infusion Iohexol 100 ml 08/22/24 08:29 08/22/24 08:30 Iohexol 350 Mg/Ml 100 Ml Infus..Btl IV 08/22/24 08:30 85 ml ONCE ONE Administration Ketorolac Tromethamine 15 mg 08/22/24 09:59 08/22/24 10:28 Ketorolac Tromethamine 15 Mg/Ml Vial IVPUSH 08/22/24 10:00 15 mg ONCE ONE Administration Morphine Sulfate 4 mg 08/22/24 07:09 08/22/24 07:26 Morphine Sulfate 4 Mg/Ml Cartridge IVPUSH 08/22/24 07:10 4 mg ONCE ONE Administration Protocol Morphine Sulfate 4 mg 08/22/24 11:24 08/22/24 11:51 Morphine Sulfate 4 Mg/Ml Cartridge IVPUSH 08/22/24 11:25 4 mg ONCE ONE Administration Protocol Ondansetron HCl 4 mg 08/22/24 07:09 08/22/24 07:27 Ondansetron Hcl 4 Mg/2 Ml Vial IVPUSH 08/22/24 07:10 4 mg ONCE ONE Administration Critical Care Time Critical Care Time Critical Care Time: Yes Total Critical Care Time: 35 Attestation: I have personally provided critical care time exclusive of time spent on separately billable procedures. Time includes review of lab data, radiology results, discussion with consultants, and monitoring for potential decompensation. Intervention performed as documented. Discharge Plan Discharge Clinical Impression: Constipation, Edema of abdominal wall Patient Disposition: Admitted As Inpatient Interventions: Admission Worksheet (ED) Last Done: 08/22/24 14:00
[2024-08-22] MEDS: 0.9 % Sodium Chloride 1,000 ML 999 ML IV (07:26)
[2024-08-22] MEDS: Morphine Sulfate 4 MG/ML CARTRIDGE IVPUSH ×2 (07:26→11:51)
[2024-08-22] MEDS: ondansetron HCL 4 MG/2 ML VIAL IVPUSH ×2 (07:27→13:36)
[2024-08-22 07:28] LABS: MANUAL DIFF FLAG NO
[2024-08-22 07:30] LABS: Basophils Percent Auto 0.5 % (0-2); Eosinophils Absolute Auto 0.1 X10*3/uL (0.0-0.4); Eosinophils Percent Auto 1.2 % (0-4); Hemoglobin 12.9 g/dl (12.0-16.0); Imm Gran Abs Auto 0.01 X10*3/uL (0.00-0.03); Imm Gran Pct Auto 0.2 % (0.0-0.4); Lymphocytes Absolute Auto 1.9 X10*3/uL (1.2-4.9); Lymphocytes Percent Auto 32.9 % (20-40); Mean Corpuscular HGB Conc 32.3 g/dl (31.0-35.0); Mean Corpuscular Hemoglobin 27.9 pg (27.0-33.0); Mean Corpuscular Volume 86.4 fL (80.0-98.0); Mean Platelet Volume 10.2 fL (9.4-12.3); Monocytes Absolute Auto 0.6 X10*3/uL (0.1-1.2); Monocytes Percent Auto 9.8 % (2-11); Neutrophils Absolute Auto 3.3 x10*3/uL (2.0-8.3); Neutrophils Percent Auto 55.4 % (45-73); Platelet Count 295 X10*3/uL (160-400); Red Blood Count 4.63 X10*6/uL (4.20-5.50); Red Cell Distribution Width 14.5 % (11.0-16.0); White Blood Count 5.9 X10*3/uL (4.8-10.8)
[2024-08-22 07:37] LABS: INTERNATIONAL NORM RATIO 1.1 (0.9-1.1); Prothrombin Time 12.3 SEC (10.9-12.4)
[2024-08-22 07:54] LABS: Lactic Acid 1.6 mmol/L (0.5-2.0)
[2024-08-22 07:59] LABS: Albumin Level 4.5 g/dL (3.5-5.0); Aspartate Amino Transferase 22 U/L (5-31); Bilirubin Direct 0.1 mg/dL (0.0-0.5); Bilirubin Total 0.4 mg/dL (0.0-1.0); Lipase 21 U/L (8-78); Total Protein 7.2 g/dL (6.5-8.0)
[2024-08-22 08:03] LABS: Albumin Level 4.6 g/dL (3.5-5.0); Anion Gap 14 (12-20); Aspartate Amino Transferase 31 U/L (5-31); Bilirubin Total 0.4 mg/dL (0.0-1.0); Blood Urea Nitrogen 8 mg/dL (9-16); Calcium 8.8 mg/dL (8.4-10.2); Carbon Dioxide 20 mmol/L (22-29); Chloride 110 mmol/L (96-108); Creatinine Clr Calc Pharmacy 110.2; Estimated Glomerular Filt Rate > 60; Glucose Random 111 mg/dL (60-115); Potassium 3.7 mmol/L (3.3-5.1); Sodium 140 mmol/L (135-145); Total Protein 7.6 g/dL (6.5-8.0)
[2024-08-22] MEDS: iohexoL 350 MG/ML 100 ML INFUS..BTL IV (08:30)
[2024-08-22] MEDS: HYDROmorphone HCl 1 MG/ML SYRINGE IVPUSH ×4 (08:48→21:08)
[2024-08-22 09:06] LABS: Appearance Urine Clear; Color Urine Yellow; Glucose Urine UA Negative (Negative); Leukocyte Esterase Urine Negative (Negative); Nitrite Urine Negative (Negative); PH 6.5 (5.0-9.0); Specific Gravity - Urine <= 1.005 (1.005-1.025); Urine Blood Negative (Negative); Urine Ketones Negative (Negative); Urine Protein Negative (Neg-Trace)
[2024-08-22 09:11] LABS: Bacteria Urine None Seen (None Seen); Hyaline Casts Urine 0-2 /LPF (0-2); RBC Urine 0-2 /HPF (0-2); Squamous Epithelial Cell Urine 0-2 /HPF (0-2); WBC Urine 0-5 /HPF (0-5)
[2024-08-22] MEDS: Ketorolac Tromethamine 15 MG/ML VIAL IVPUSH (10:28)
[2024-08-22 10:46] LABS: Alanine Aminotransferase 17 U/L (0-31); Alkaline Phosphatase 42 U/L (39-117)
[2024-08-22 10:54] LABS: Alanine Aminotransferase 18 U/L (0-31); Alkaline Phosphatase 43 U/L (39-117)
--- NOTE | 2024-08-22 12:06 | PM.IMHP ---
History of Present Illness Date of Service: 08/22/24 Chief Complaint: abd pain 44F PMH diverticulitis, stress incontinence, anxiety, depression, bipolar, hyperlipidemia, am anemia, SORAIDA, status post L5-S1 a TLIF with large abdominal hernia mesh repair completed during surgery 06/19/2024. Patient has been having abdominal pain since surgery. She feels it is different than her previous hernia repairs. 06/09, left lower quadrant but occasionally generalizes making it difficult to eat, reports normal stools, denies fever or chills. CT abdomen showed abundant stool without obstruction, edema pattern and deep fat planes of the mid lower abdominal wall without gross fluid collection. Review of Systems Review of Systems: Yes all other systems are reviewed and are negative FORMERLY [facility], 1928–1983 Medical History History of marijuana use Arthritis Diverticulitis Stress incontinence Anxiety Depression Vitamin B12 deficiency Elevated cholesterol Anemia Sacroiliitis Sleep apnea Arthritis of knee, left History of abdominal hernia Dyslipidemia Bipolar 2 disorder Family History Father Hypertension Mother Pre-diabetes Hypertension Sister Cervical cancer Surgical History History of lumbar fusion H/O colonoscopy History of partial hypophysectomy H/O hernia repair History of colostomy reversal History of elbow surgery History of left oophorectomy History of partial surgical removal of colon History of total right knee replacement Social History Household Members: Family Household Members Other:: sister Housing: Apartment Housing Other:: third floor Are you a primary veterinarian laboratory animal care to a significant other at home: No Do you presently have visiting nurse or other home services: Yes Alcohol intake: current Alcohol intake frequency: does not drink Patient Tobacco Use Status: Former Tobacco user Tobacco use type: Smokeless Tobacco Cigarettes Per Day: 4 Years Smoked: 20 years Smoked in Last 30 Days: No e-Cigarette/Vaping Use: Never Used Second Hand Smoke Exposure: No Use of substances other than those prescribed or required for medical reasons: No Substance Use Type: Marijuana Advance Directives: No Advance Directives Information Provided: Yes service: No Current occupational status: disabled Cognitive needs: No Hearing needs: No Vision needs: No Meds Allergies Allergy/AdvReac Type Severity Reaction Status Date / Time aloe vera [ALOE VERA] Allergy Intermediate RASH Verified 08/22/24 06:45 metoclopramide [From REGLAN] Allergy Intermediate antsy Verified 08/22/24 06:45 allopurinol Allergy Unknown does not Verified 08/22/24 06:45 remember gabapentin AdvReac Intermediate Muscle Verified 08/22/24 06:45 cramps pregabalin [From Lyrica] AdvReac Intermediate Muscle Verified 08/22/24 06:45 cramps Home Medications ?Medication ?Instructions ?Recorded ?Confirmed ?Last Taken ?Type trazodone 100 mg tablet 200 mg PO BEDTIME 09/19/21 08/22/24 08/21/24 History topiramate 100 mg tablet 300 mg PO BEDTIME 01/08/23 08/22/24 08/21/24 History escitalopram oxalate 20 mg tablet 20 mg PO BEDTIME 03/02/24 08/22/24 08/21/24 History norethindrone acetate 5 mg tablet 10 mg PO BEDTIME 03/02/24 08/22/24 08/21/24 History biotin 5 mg tablet 5 mg PO DAILY 06/16/24 08/22/24 08/21/24 History lorazepam 1 mg tablet 1 mg PO DAILY PRN Anxiety 06/16/24 08/22/24 06/29/24 04:00 History prochlorperazine maleate 10 mg 10 mg PO BID PRN Nausea 06/16/24 08/22/24 Unknown History tablet (Compazine) Physical Exam Vital Signs and Narrative: Vital Signs: Last Vital Signs Temp 98.3 F 08/22/24 09:53 Pulse 69 08/22/24 09:53 Resp 20 08/22/24 09:53 BP 142/77 H 08/22/24 09:53 Pulse Ox 99 08/22/24 09:53 O2 Del Method Room Air 08/22/24 09:53 BMI result Body Mass Index 38.6 General: AO X 3, in pain, teary Resp: CTA bilateral, no accessory muscles used CVS: S1,S2,RRR GI: soft, tender, old scar, not distended Neuro: motor grossly intact, alert Results Labs 08/22/24 07:18 08/22/24 07:18 Labs: Laboratory Results - last 24 hr 08/22/24 08/22/24 08/22/24 07:18 07:18 07:18 MCV 86.4 MCH 27.9 MCHC 32.3 RDW 14.5 Plt Count 295 D MPV 10.2 Immature Gran % (Auto) 0.2 Neut % (Auto) 55.4 Lymph % (Auto) 32.9 Teller % (Auto) 9.8 Eos % (Auto) 1.2 Baso % (Auto) 0.5 Lymph # (Auto) 1.9 Teller # (Auto) 0.6 Eos # (Auto) 0.1 Baso # (Auto) 0.0 Abs Immat Gran (auto) 0.01 Absolute Neuts (auto) 3.3 Absolute Nucleated RBC 0.000 Nucleated RBC % (auto) 0.0 PT 12.3 INR 1.1 Anion Gap 14 Estim Creat Clear Calc 110.2 Estimated GFR > 60 Random Glucose 111 Lactic Acid 1.6 Calcium 8.8 D Magnesium 2.0 Total Bilirubin 0.4 0.4 Direct Bilirubin 0.1 AST 31 22 ALT 18 Alkaline Phosphatase Total Protein Albumin Lipase Urine Color Urine Appearance Urine pH Ur Specific [place] Urine Protein Urine Glucose (UA) Urine Ketones Urine Blood Urine Nitrite Ur Leukocyte Esterase Urine RBC Urine WBC Ur Squamous Epith Cells Urine Bacteria Hyaline Casts 08/22/24 08/22/24 08/22/24 07:18 07:18 07:18 MCV MCH MCHC RDW Plt Count MPV Immature Gran % (Auto) Neut % (Auto) Lymph % (Auto) Teller % (Auto) Eos % (Auto) Baso % (Auto) Lymph # (Auto) Teller # (Auto) Eos # (Auto) Baso # (Auto) Abs Immat Gran (auto) Absolute Neuts (auto) Absolute Nucleated RBC Nucleated RBC % (auto) PT INR Anion Gap Estim Creat Clear Calc Estimated GFR Random Glucose Lactic Acid Calcium Magnesium Total Bilirubin Direct Bilirubin AST ALT 17 Alkaline Phosphatase 43 42 Total Protein 7.6 7.2 Albumin 4.6 Lipase Urine Color Urine Appearance Urine pH Ur Specific [place] Urine Protein Urine Glucose (UA) Urine Ketones Urine Blood Urine Nitrite Ur Leukocyte Esterase Urine RBC Urine WBC Ur Squamous Epith Cells Urine Bacteria Hyaline Casts 08/22/24 08/22/24 07:18 08:51 MCV MCH MCHC RDW Plt Count MPV Immature Gran % (Auto) Neut % (Auto) Lymph % (Auto) Teller % (Auto) Eos % (Auto) Baso % (Auto) Lymph # (Auto) Teller # (Auto) Eos # (Auto) Baso # (Auto) Abs Immat Gran (auto) Absolute Neuts (auto) Absolute Nucleated RBC Nucleated RBC % (auto) PT INR Anion Gap Estim Creat Clear Calc Estimated GFR Random Glucose Lactic Acid Calcium Magnesium Total Bilirubin Direct Bilirubin AST ALT Alkaline Phosphatase Total Protein Albumin 4.5 Lipase 21 Urine Color Yellow Urine Appearance Clear Urine pH 6.5 Ur Specific [place] <= 1.005 Urine Protein Negative Urine Glucose (UA) Negative Urine Ketones Negative Urine Blood Negative Urine Nitrite Negative Ur Leukocyte Esterase Negative Urine RBC 0-2 Urine WBC 0-5 Ur Squamous Epith Cells 0-2 Urine Bacteria None Seen Hyaline Casts 0-2 Imaging Radiologist's Impressions: Impressions Abdomen/Pelvis CT 08/22/24 08:20 IMPRESSION: Abundant stool without intestinal obstruction pattern. Edema pattern in the deep fat planes of the mid lower abdominal wall without gross fluid collections. Fleischner guidelines were followed. Electronically signed by: Pierce Salazar MD 08/22/2024 09:26 AM [facility] Assessment and Plan (1) Constipation: Status: Acute Plan 44F PMH diverticulitis, stress incontinence, anxiety, depression, bipolar, hyperlipidemia, am anemia, SORAIDA, status post L5-S1 a TLIF with large abdominal hernia mesh repair completed during surgery 06/19/2024 presented with abdominal pain Intractable abdominal pain We will address both pain with hydromorphone and anxiety caused by pain with Ativan General surgery eval mood disorder lexapro Obesity Weight loss recommended SORAIDA DVT prophylaxis with Lovenox Full Code Quality Stroke Does the patient have a stroke diagnosis?: No VTE Prior VTE?: No VTE Risk Level:: Medical - moderate - high VTE Device Contraindication: Treatment Not Indicated VTE Drug Contraindication: N/A - Med Ordered
--- NOTE | 2024-08-22 15:32 | PHA.MEDREC ---
Addendum entered by Maciel Alvarez RPh 08/22/24 15:59: Reviewed by [facility] Original Note: Pharmacy Consult ? Medication Reconciliation Pharmacy has completed the medication reconciliation. Spoke with patient and confirmed medications with patient. Patient confirmed her Vitamin B-12 injection once every 3 weeks and the patient states she was going to be doing it tomorrow. She confirmed she taking the Compazine 10mg tabs and Scopolamine patches with the vitamin B-12 injection every 3 weeks. She confirmed the Oxycodone 5mg tab BID as needed for sever pain. She confirmed she took her medications last night, she was not able to take any today due to how she was feeling.
[2024-08-22] MEDS: 0.9 % Sodium Chloride Flush 3 ML SYRINGE IVFLUSH ×2 (15:54→20:51)
--- NOTE | 2024-08-22 16:36 | PC.NURSE ---
report given to mildred chavez for pt transfer.
--- NOTE | 2024-08-22 17:37 | P.CONGS_ITS ---
History of Present Illness Consult details Consult date: 08/22/24 Narrative: Patient was a 44-year-old female who was roughly a month and a status post back surgery through anterior approach as well as repair a recurrent ventral hernia by Dr. Jensen performed here at [place] on conjunction with Dr. Dumont. She now complains of a variety of issues including incisional pain after ventral hernia repair. She had a workup in the emergency department including CT scan of the abdomen pelvis which demonstrated no evidence of recurrence, no evidence of infection, no evidence of bowel obstruction, very significant stool burden. Purulent the ER doctor contacted her surgeon as noted above from [facility] and he did not have any issues with the CT scan findings. Patient was being admitted to the medical service and surgical consultation was performed regarding incisional pain at ventral hernia repair site. Patient states that she is moving her bowels but not as regularly as usual. She denies any nausea or vomiting. Chart was reviewed and patient evaluated. Patient has normal white count. H&H stable. Vital signs within normal limits PMFSH Past Medical History Medical History History of marijuana use Arthritis Diverticulitis Stress incontinence Anxiety Depression Vitamin B12 deficiency Elevated cholesterol Anemia Sacroiliitis Sleep apnea Arthritis of knee, left History of abdominal hernia Dyslipidemia Bipolar 2 disorder Family History Family History Father Hypertension Mother Pre-diabetes Hypertension Sister Cervical cancer Surgical History Surgical History History of lumbar fusion H/O colonoscopy History of partial hypophysectomy H/O hernia repair History of colostomy reversal History of elbow surgery History of left oophorectomy History of partial surgical removal of colon History of total right knee replacement Social History Social History Household Members: Family Household Members Other:: sister Housing: Apartment Housing Other:: third floor Are you a primary property caretaker to a significant other at home: No Do you presently have visiting nurse or other home services: Yes Alcohol intake: current Alcohol intake frequency: does not drink Patient Tobacco Use Status: Former Tobacco user Tobacco use type: Smokeless Tobacco Cigarettes Per Day: 4 Years Smoked: 20 years e-Cigarette/Vaping Use: Never Used Second Hand Smoke Exposure: No Substance Use Type: Marijuana service: No Current occupational status: disabled Cognitive needs: No Hearing needs: No Vision needs: No Meds Allergies Allergy/AdvReac Type Severity Reaction Status Date / Time aloe vera [ALOE VERA] Allergy Intermediate RASH Verified 08/22/24 06:45 metoclopramide [From REGLAN] Allergy Intermediate antsy Verified 08/22/24 06:45 allopurinol Allergy Unknown does not Verified 08/22/24 06:45 remember gabapentin AdvReac Intermediate Muscle Verified 08/22/24 06:45 cramps pregabalin [From Lyrica] AdvReac Intermediate Muscle Verified 08/22/24 06:45 cramps Active Medications: Current Medications Atorvastatin Calcium (Atorvastatin Calcium 20 Mg Tablet) 20 mg PO BEDTIME VIOLETA Enoxaparin Sodium (Enoxaparin Sodium 40 Mg/0.4 Ml Syringe) 40 mg SUBCUT Q24H VIOLETA Escitalopram Oxalate (Escitalopram Oxalate 20 Mg Tablet) 20 mg PO BEDTIME [facility] Hydromorphone HCl (Hydromorphone Hcl 1 Mg/Ml Syringe) 1 mg IVPUSH Q3H PRN; Protocol PRN Reason: Pain, Severe (Pain Scale 7-10) Last Admin: 08/22/24 15:01 Dose: 1 mg Lorazepam (Lorazepam 2 Mg/Ml Vial) 1 mg IVPUSH Q4H PRN PRN Reason: Anxiety Methocarbamol (Methocarbamol 750 Mg Tablet) 750 mg PO TID VIOLETA Non-Formulary Medication (Norethindrone Acetate) 10 mg PO BEDTIME [facility]IO[facility] Ondansetron HCl (Ondansetron Hcl 4 Mg/2 Ml Vial) 4 mg IVPUSH Q6H PRN PRN Reason: Nausea Last Admin: 08/22/24 13:36 Dose: 4 mg Sodium Chloride (0.9 % Sodium Chloride Flush 3 Ml Syringe) 3 ml IVFLUSH QSHIFT VIOLETA Last Admin: 08/22/24 15:54 Dose: 3 ml Topiramate (Topiramate 100 Mg Tablet) 300 mg PO BEDTIME [facility]IO[facility] Trazodone HCl (Trazodone Hcl 100 Mg Tablet) 200 mg PO BEDTIME VIOLETA Home Medications ?Medication ?Instructions ?Recorded ?Confirmed ?Last Taken ?Type trazodone 100 mg tablet 200 mg PO BEDTIME 09/19/21 08/22/24 08/21/24 History topiramate 100 mg tablet 300 mg PO BEDTIME 01/08/23 08/22/24 08/21/24 History escitalopram oxalate 20 mg tablet 20 mg PO BEDTIME 03/02/24 08/22/24 08/21/24 History norethindrone acetate 5 mg tablet 10 mg PO BEDTIME 03/02/24 08/22/24 08/21/24 History biotin 5 mg tablet 5 mg PO DAILY 06/16/24 08/22/24 08/21/24 History lorazepam 1 mg tablet 1 mg PO DAILY PRN Anxiety 06/16/24 08/22/24 06/29/24 04:00 History prochlorperazine maleate 10 mg 10 mg PO BID PRN Nausea 06/16/24 08/22/24 Unknown History tablet (Compazine) Physical Exam 2 Vital Signs: Vital Signs: Last Vital Signs Temp 98.0 F 08/22/24 12:18 Pulse 64 08/22/24 15:02 Resp 16 08/22/24 15:02 BP 131/80 08/22/24 15:02 Pulse Ox 98 08/22/24 15:02 O2 Del Method Room Air 08/22/24 15:02 BMI result Body Mass Index 38.6 Const: Other: Patient was very emotionally charged and anxious about her being in the hospital in her abdominal symptoms. GI: Other: Abdomen corpulent, soft, benign. Incision clean dry and intact. No evidence of any recurrence or infection. Tenderness over incisional site but no evidence of any guarding, rebound, or rigidity. Results Labs 08/23/24 05:38 08/23/24 05:38 Labs: Abnormal lab results 08/22/24 Range/Units 07:18 Chloride 110 H (96-108) mmol/L Carbon Dioxide 20 L (22-29) mmol/L BUN 8 L (9-16) mg/dL Short CBC 08/22/24 Range/Units 07:18 WBC 5.9 (4.8-10.8) X10*3/uL Hgb 12.9 (12.0-16.0) g/dl Hct 40.0 (37.0-47.0) % Plt Count 295 D (160-400) X10*3/uL BMP 08/22/24 07:18 Sodium 140 Potassium 3.7 Chloride 110 H Carbon Dioxide 20 L BUN 8 L Creatinine 0.83 Calcium 8.8 D Liver Function 08/22/24 08/22/24 08/22/24 Range/Units 07:18 07:18 07:18 Total Bilirubin 0.4 0.4 (0.0-1.0) mg/dL Direct Bilirubin 0.1 (0.0-0.5) mg/dL AST 31 22 (5-31) U/L ALT 18 (0-31) U/L Alkaline Phosphatase (39-117) U/L Albumin (3.5-5.0) g/dL 08/22/24 08/22/24 08/22/24 Range/Units 07:18 07:18 07:18 Total Bilirubin (0.0-1.0) mg/dL Direct Bilirubin (0.0-0.5) mg/dL AST (5-31) U/L ALT 17 (0-31) U/L Alkaline Phosphatase 43 42 (39-117) U/L Albumin 4.6 4.5 (3.5-5.0) g/dL Urine 08/22/24 Range/Units 08:51 Urine Color Yellow Urine Appearance Clear Urine pH 6.5 (5.0-9.0) Ur Specific [place] <= 1.005 (1.005-1.025) Urine Protein Negative (Neg-Trace) mg/dL Urine Glucose (UA) Negative (Negative) mg/dL All other labs normal. Assessment and Plan (1) Incisional pain: Status: Acute Plan At present, clinical and CT scan findings were reviewed with the patient. I reassured her there was no evidence of hernia recurrence or infection or bowel obstruction. She will need to address her high stool burden in her GI system with purgatives and laxatives. No acute surgical issues at this time. Procedures Date of Service Date of Service: 08/23/24
--- NOTE | 2024-08-22 19:58 | PC.NURSE ---
Pt a&ox4, no signs of distress. Pt resting in bed comfortably Plan of care ongoing.
[2024-08-22] MEDS: traZODone HCL 100 MG TABLET 200 MG PO (20:50)
[2024-08-22] MEDS: Topiramate 100 MG TABLET 300 MG PO (20:50)
[2024-08-22] MEDS: methocarbamoL 750 MG TABLET PO (20:50)
[2024-08-22] MEDS: Escitalopram Oxalate 20 MG TABLET PO (20:51)
[2024-08-22] MEDS: Atorvastatin Calcium 20 MG TABLET PO (20:51)
[2024-08-23] MEDS: HYDROmorphone HCl 1 MG/ML SYRINGE IVPUSH ×7 (00:31→22:40)
[2024-08-23 03:35] VITALS: BP 136/87; PULSE 66; RESP 20; TEMP 36.3; O2SAT 96
[2024-08-23 06:01] LABS: Hematocrit 37.2 % (37.0-47.0); Hemoglobin 11.9 g/dl (12.0-16.0); Mean Corpuscular Hemoglobin 27.7 pg (27.0-33.0); Mean Corpuscular Volume 86.7 fL (80.0-98.0); Mean Platelet Volume 10.2 fL (9.4-12.3); Platelet Count 270 X10*3/uL (160-400); Red Blood Count 4.29 X10*6/uL (4.20-5.50); Red Cell Distribution Width 14.6 % (11.0-16.0); White Blood Count 5.6 X10*3/uL (4.8-10.8)
[2024-08-23 06:20] LABS: Anion Gap 14 (12-20); Blood Urea Nitrogen 9 mg/dL (9-16); Carbon Dioxide 21 mmol/L (22-29); Chloride 110 mmol/L (96-108); Creatinine Clr Calc Pharmacy 109.9; Estimated Glomerular Filt Rate > 60; Glucose Random 91 mg/dL (60-115); Potassium 3.7 mmol/L (3.3-5.1); Sodium 141 mmol/L (135-145)
[2024-08-23 07:57] VITALS: BP 128/84; PULSE 73; RESP 18; TEMP 36.4; O2SAT 93
--- NOTE | 2024-08-23 07:57 | P.PNGS_ITS ---
Subjective Subjective Date of Service: 08/23/24 Interval history: Patient states her incisional pain is moderately better. She has passed significant amounts of stool she states over the evening and this morning. Physical Exam 2 Vital Signs: Vital Signs: Last Vital Signs Temp 97.4 F 08/23/24 03:35 Pulse 66 08/23/24 03:35 Resp 20 08/23/24 03:35 BP 136/87 08/23/24 03:35 Pulse Ox 96 08/23/24 03:35 O2 Del Method Room Air 08/23/24 03:35 BMI result Body Mass Index 39.3 GI: Other: Abdomen corpulent, soft, incisional tenderness over midline incision but otherwise benign. No evidence of any guarding, rebound, or rigidity. Objective Data Active Medications Atorvastatin Calcium (Atorvastatin Calcium 20 Mg Tablet) 20 mg PO BEDTIME [facility] Last Admin: 08/22/24 20:51 Dose: 20 mg Documented By: DIONNA Enoxaparin Sodium (Enoxaparin Sodium 40 Mg/0.4 Ml Syringe) 40 mg SUBCUT Q24H VIOLETA Escitalopram Oxalate (Escitalopram Oxalate 20 Mg Tablet) 20 mg PO BEDTIME [facility] Last Admin: 08/22/24 20:51 Dose: 20 mg Documented By: DIONNA Hydromorphone HCl (Hydromorphone Hcl 1 Mg/Ml Syringe) 1 mg IVPUSH Q3H PRN; Protocol PRN Reason: Pain, Severe (Pain Scale 7-10) Last Admin: 08/23/24 04:27 Dose: 1 mg Documented By: DIONNA Lorazepam (Lorazepam 2 Mg/Ml Vial) 1 mg IVPUSH Q4H PRN PRN Reason: Anxiety Methocarbamol (Methocarbamol 750 Mg Tablet) 750 mg PO TID [facility] Last Admin: 08/22/24 20:50 Dose: 750 mg Documented By: DIONNA Non-Formulary Medication (Norethindrone Acetate) 10 mg PO BEDTIME [facility]IO[facility] Ondansetron HCl (Ondansetron Hcl 4 Mg/2 Ml Vial) 4 mg IVPUSH Q6H PRN PRN Reason: Nausea Last Admin: 08/22/24 13:36 Dose: 4 mg Documented By: BIJAL Sodium Chloride (0.9 % Sodium Chloride Flush 3 Ml Syringe) 3 ml IVFLUSH QSHIFT [facility] Last Admin: 08/23/24 07:22 Dose: Not Given Documented By: MARIANO Non-Admin Reason: Previously Administered Topiramate (Topiramate 100 Mg Tablet) 300 mg PO BEDTIME [facility] Last Admin: 08/22/24 20:50 Dose: 300 mg Documented By: DIONNA Trazodone HCl (Trazodone Hcl 100 Mg Tablet) 200 mg PO BEDTIME [facility] Last Admin: 08/22/24 20:50 Dose: 200 mg Documented By: DIONNA Labs 08/23/24 05:38 08/23/24 05:38 Labs: Laboratory Results - last 24 hr 08/22/24 08/22/24 08/22/24 07:18 07:18 07:18 MCV MCH MCHC RDW Plt Count MPV Absolute Nucleated RBC Nucleated RBC % (auto) Anion Gap 14 Estim Creat Clear Calc 110.2 Estimated GFR > 60 Random Glucose 111 Calcium 8.8 D Magnesium 2.0 Total Bilirubin 0.4 0.4 Direct Bilirubin 0.1 AST 31 22 ALT 18 Alkaline Phosphatase Total Protein Albumin Lipase Urine Color Urine Appearance Urine pH Ur Specific [place] Urine Protein Urine Glucose (UA) Urine Ketones Urine Blood Urine Nitrite Ur Leukocyte Esterase Urine RBC Urine WBC Ur Squamous Epith Cells Urine Bacteria Hyaline Casts 08/22/24 08/22/24 08/22/24 07:18 07:18 07:18 MCV MCH MCHC RDW Plt Count MPV Absolute Nucleated RBC Nucleated RBC % (auto) Anion Gap Estim Creat Clear Calc Estimated GFR Random Glucose Calcium Magnesium Total Bilirubin Direct Bilirubin AST ALT 17 Alkaline Phosphatase 43 42 Total Protein 7.6 7.2 Albumin 4.6 Lipase Urine Color Urine Appearance Urine pH Ur Specific [place] Urine Protein Urine Glucose (UA) Urine Ketones Urine Blood Urine Nitrite Ur Leukocyte Esterase Urine RBC Urine WBC Ur Squamous Epith Cells Urine Bacteria Hyaline Casts 08/22/24 08/22/24 08/23/24 07:18 08:51 05:38 MCV 86.7 MCH 27.7 MCHC 32.0 RDW 14.6 Plt Count 270 MPV 10.2 Absolute Nucleated RBC 0.000 Nucleated RBC % (auto) 0.0 Anion Gap 14 Estim Creat Clear Calc 109.9 Estimated GFR > 60 Random Glucose 91 Calcium 9.0 Magnesium Total Bilirubin Direct Bilirubin AST ALT Alkaline Phosphatase Total Protein Albumin 4.5 Lipase 21 Urine Color Yellow Urine Appearance Clear Urine pH 6.5 Ur Specific [place] <= 1.005 Urine Protein Negative Urine Glucose (UA) Negative Urine Ketones Negative Urine Blood Negative Urine Nitrite Negative Ur Leukocyte Esterase Negative Urine RBC 0-2 Urine WBC 0-5 Ur Squamous Epith Cells 0-2 Urine Bacteria None Seen Hyaline Casts 0-2 Procedures Date of Service Date of Service: 08/23/24 Progress Note: A&P Assessment and plan (1) Incisional pain: Status: Acute Plan Continue current plan of purgatives, stool softeners, out of bed, incentive spirometry. We will follow up p.r.n.. Patient was should follow-up with her surgeon at [facility] upon discharge. Time Spent With Patient Time: Total time managing care of this patient today ____ minutes. Quality Stroke Does the patient have a stroke diagnosis?: No VTE Prior VTE?: No VTE Risk Level:: Medical - moderate - high VTE Device Contraindication: Treatment Not Indicated VTE Drug Contraindication: N/A - Med Ordered
[2024-08-23] MEDS: methocarbamoL 750 MG TABLET PO ×3 (08:13→20:19)
[2024-08-23] MEDS: LORazepam 2 MG/ML VIAL 1 MG IVPUSH (08:13)
[2024-08-23] MEDS: Enoxaparin Sodium 40 MG/0.4 ML SYRINGE SUBCUT (08:13)
[2024-08-23] MEDS: Lactulose 20 GM/30 ML SOLUTION PO (08:13)
--- NOTE | 2024-08-23 08:43 | HO.PM.IMPN ---
Subjective Subjective Date of Service: 08/23/24 Interval History: had BM but still feels constipated still reporting pain Physical Exam Vital Signs: Vital Signs: Last Vital Signs Temp 97.5 F 08/23/24 07:57 Pulse 73 08/23/24 07:57 Resp 18 08/23/24 07:57 BP 128/84 08/23/24 07:57 Pulse Ox 93 08/23/24 07:57 O2 Del Method Room Air 08/23/24 07:57 BMI result Body Mass Index 39.3 General: AO X 3, in distress, teary, anxious appearing Resp: CTA bilateral, no accessory muscles used CVS: S1,S2,RRR GI: soft, non tender, non distended, vertical scar noted Neuro: motor grossly intact, alert Objective Data Active Medications Atorvastatin Calcium (Atorvastatin Calcium 20 Mg Tablet) 20 mg PO BEDTIME [facility] Last Admin: 08/22/24 20:51 Dose: 20 mg Documented By: DIONNA Enoxaparin Sodium (Enoxaparin Sodium 40 Mg/0.4 Ml Syringe) 40 mg SUBCUT Q24H [facility] Last Admin: 08/23/24 08:13 Dose: 40 mg Documented By: MARIANO Escitalopram Oxalate (Escitalopram Oxalate 20 Mg Tablet) 20 mg PO BEDTIME [facility] Last Admin: 08/22/24 20:51 Dose: 20 mg Documented By: DIONNA Hydromorphone HCl (Hydromorphone Hcl 1 Mg/Ml Syringe) 1 mg IVPUSH Q3H PRN; Protocol PRN Reason: Pain, Severe (Pain Scale 7-10) Last Admin: 08/23/24 08:12 Dose: 1 mg Documented By: MARIANO Lorazepam (Lorazepam 2 Mg/Ml Vial) 1 mg IVPUSH Q4H PRN PRN Reason: Anxiety Last Admin: 08/23/24 08:13 Dose: 1 mg Documented By: MARIANO Methocarbamol (Methocarbamol 750 Mg Tablet) 750 mg PO TID [facility] Last Admin: 08/23/24 08:13 Dose: 750 mg Documented By: MARIANO Non-Formulary Medication (Norethindrone Acetate) 10 mg PO BEDTIME [facility] Ondansetron HCl (Ondansetron Hcl 4 Mg/2 Ml Vial) 4 mg IVPUSH Q6H PRN PRN Reason: Nausea Last Admin: 08/22/24 13:36 Dose: 4 mg Documented By: BIJAL Sodium Chloride (0.9 % Sodium Chloride Flush 3 Ml Syringe) 3 ml IVFLUSH QSHIFT [facility] Last Admin: 08/23/24 07:22 Dose: Not Given Documented By: MARIANO Non-Admin Reason: Previously Administered Topiramate (Topiramate 100 Mg Tablet) 300 mg PO BEDTIME [facility] Last Admin: 08/22/24 20:50 Dose: 300 mg Documented By: DIONNA Trazodone HCl (Trazodone Hcl 100 Mg Tablet) 200 mg PO BEDTIME [facility] Last Admin: 08/22/24 20:50 Dose: 200 mg Documented By: DIONNA Labs 08/23/24 05:38 08/23/24 05:38 Labs: Laboratory Results - last 24 hr 08/22/24 08/22/24 08/22/24 07:18 07:18 07:18 MCV MCH MCHC RDW Plt Count MPV Absolute Nucleated RBC Nucleated RBC % (auto) Anion Gap Estim Creat Clear Calc Estimated GFR Random Glucose Calcium ALT 18 17 Alkaline Phosphatase 43 42 Urine Color Urine Appearance Urine pH Ur Specific [place] Urine Protein Urine Glucose (UA) Urine Ketones Urine Blood Urine Nitrite Ur Leukocyte Esterase Urine RBC Urine WBC Ur Squamous Epith Cells Urine Bacteria Hyaline Casts 08/22/24 08/23/24 08:51 05:38 MCV 86.7 MCH 27.7 MCHC 32.0 RDW 14.6 Plt Count 270 MPV 10.2 Absolute Nucleated RBC 0.000 Nucleated RBC % (auto) 0.0 Anion Gap 14 Estim Creat Clear Calc 109.9 Estimated GFR > 60 Random Glucose 91 Calcium 9.0 ALT Alkaline Phosphatase Urine Color Yellow Urine Appearance Clear Urine pH 6.5 Ur Specific [place] <= 1.005 Urine Protein Negative Urine Glucose (UA) Negative Urine Ketones Negative Urine Blood Negative Urine Nitrite Negative Ur Leukocyte Esterase Negative Urine RBC 0-2 Urine WBC 0-5 Ur Squamous Epith Cells 0-2 Urine Bacteria None Seen Hyaline Casts 0-2 Assessment and Plan (1) Constipation: Status: Acute Plan 44F PMH diverticulitis, stress incontinence, anxiety, depression, bipolar, hyperlipidemia, am anemia, SORAIDA, status post L5-S1 a TLIF with large abdominal hernia mesh repair completed during surgery 06/19/2024 presented with abdominal pain Intractable abdominal pain We will address pain with hydromorphone, anxiety caused by pain with Ativan, and constipation with lactulose, miralax, colace General surgery appreciated - no acute pathology, can follow up outpatient with her surgeon mood disorder lexapro Obesity Weight loss recommended SORAIDA DVT prophylaxis with Lovenox Full Code reason for continued hospitalization:symptom control Quality Stroke Does the patient have a stroke diagnosis?: No VTE Prior VTE?: No VTE Risk Level:: Medical - moderate - high VTE Device Contraindication: Treatment Not Indicated VTE Drug Contraindication: N/A - Med Ordered
[2024-08-23] MEDS: polyethylene glycoL 3350 17 GM POWD.PACK PO (09:15)
[2024-08-23] MEDS: Docusate Sodium 100 MG CAPSULE PO ×2 (09:15→20:19)
--- NOTE | 2024-08-23 10:53 | MHC.CM.PN ---
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
[2024-08-23 12:26] VITALS: BP 122/78; PULSE 72; RESP 18; TEMP 36.2; O2SAT 97
[2024-08-23] MEDS: ondansetron HCL 4 MG/2 ML VIAL IVPUSH (14:20)
[2024-08-23 16:01] VITALS: BP 129/69; PULSE 78; RESP 18; TEMP 36.3; O2SAT 95
[2024-08-23 19:47] VITALS: BP 143/77; PULSE 67; RESP 20; TEMP 36.4; O2SAT 95
[2024-08-23] MEDS: Topiramate 100 MG TABLET 300 MG PO (20:19)
[2024-08-23] MEDS: Escitalopram Oxalate 20 MG TABLET PO (20:19)
[2024-08-23] MEDS: 0.9 % Sodium Chloride Flush 3 ML SYRINGE IVFLUSH (20:20)
[2024-08-23] MEDS: traZODone HCL 100 MG TABLET 200 MG PO (20:20)
[2024-08-23] MEDS: Atorvastatin Calcium 20 MG TABLET PO (20:20)
[2024-08-23 23:35] VITALS: BP 136/62; PULSE 65; RESP 18; TEMP 36.2; O2SAT 94
[2024-08-24] MEDS: LORazepam 2 MG/ML VIAL 1 MG IVPUSH ×2 (02:04→08:31)
[2024-08-24] MEDS: HYDROmorphone HCl 1 MG/ML SYRINGE IVPUSH ×2 (02:05→06:42)
[2024-08-24 03:58] VITALS: BP 143/64; PULSE 67; RESP 18; TEMP 36.3; O2SAT 97
[2024-08-24 07:30] VITALS: BP 153/74; PULSE 82; RESP 16; TEMP 37.2; O2SAT 94
[2024-08-24] MEDS: Enoxaparin Sodium 40 MG/0.4 ML SYRINGE SUBCUT (08:30)
[2024-08-24] MEDS: methocarbamoL 750 MG TABLET PO ×2 (08:31→14:24)
[2024-08-24] MEDS: Docusate Sodium 100 MG CAPSULE PO (08:31)
[2024-08-24] MEDS: oxyCODONE HCl Immed Release 5 MG TABLET PO ×2 (10:05→10:18)
[2024-08-24] MEDS: Lidocaine 4 % Patch ADH..PATCH 1 PATCH TRANSDERMA (10:05)
[2024-08-24] MEDS: Dicyclomine HCl 10 MG CAPSULE PO ×2 (10:05→16:07)
[2024-08-24] MEDS: LORazepam 1 MG TABLET PO (11:15)
[2024-08-24 12:00] VITALS: BP 132/67; PULSE 76; RESP 16; TEMP 36.7; O2SAT 94
--- NOTE | 2024-08-24 13:31 | P.PNIM_ITS ---
Subjective Subjective Date of Service: 08/24/24 Interval History: Complaining of left periumbilical pain, describe it as constant with sharp intermittent pain/spasm, having normal bowel movements, no fevers, no chills, no nausea, no vomiting, able to ambulate But nervous walking in hallway due to worsening pain and fall. History of B12 deficiency is overdue for IM B12 shot but nervous about taking due to side effect of nausea and vomiting that could worsen the abdominal pain. Review of Systems All other system reviewed and are negative Physical Exam 2 Vital Signs: Vital Signs: Last Vital Signs Temp 98.0 F 08/24/24 12:00 Pulse 76 08/24/24 12:00 Resp 16 08/24/24 12:00 BP 132/67 08/24/24 12:00 Pulse Ox 94 08/24/24 12:00 O2 Del Method Room Air 08/24/24 12:00 BMI result Body Mass Index 39.3 Const: Other: General tearful due to pain, no acute distress. Neck no JVD. CVS regular rate rhythm, Respiratory lungs clear to auscultation, no respiratory distress, no wheeze, no rhonchi. Gastrointestinal abdomen soft, mild tenderness to palpation left periumbilical area/well healed incision from recent surgery, bowel sounds audible, no guarding , no rigidity. Extremities no edema. Neuro non focal Skin no rash Objective Data Active Medications Atorvastatin Calcium (Atorvastatin Calcium 20 Mg Tablet) 20 mg PO BEDTIME [facility] Last Admin: 08/23/24 20:20 Dose: 20 mg Documented By: DIONNA Dicyclomine HCl (Dicyclomine Hcl 10 Mg Capsule) 10 mg PO QIDACHS PRN PRN Reason: abdominal pain Last Admin: 08/24/24 10:05 Dose: 10 mg Documented By: VIKTORIYA Docusate Sodium (Docusate Sodium 100 Mg Capsule) 100 mg PO BID [facility] Last Admin: 08/24/24 08:31 Dose: 100 mg Documented By: VIKTORIYA Enoxaparin Sodium (Enoxaparin Sodium 40 Mg/0.4 Ml Syringe) 40 mg SUBCUT Q24H [facility] Last Admin: 08/24/24 08:30 Dose: 40 mg Documented By: VIKTORIYA Escitalopram Oxalate (Escitalopram Oxalate 20 Mg Tablet) 20 mg PO BEDTIME [facility] Last Admin: 08/23/24 20:19 Dose: 20 mg Documented By: DIONNA Lidocaine (Lidocaine 4 % Patch Adh..Patch) 1 patch TRANSDERMA DAILY [facility]; Protocol Last Admin: 08/24/24 10:05 Dose: 1 patch Documented By: VIKTORIYA Lorazepam (Lorazepam 1 Mg Tablet) 1 mg PO Q6H PRN PRN Reason: anxiety/restlessness Last Admin: 08/24/24 11:15 Dose: 1 mg Documented By: VIKTORIYA Methocarbamol (Methocarbamol 750 Mg Tablet) 750 mg PO TID [facility] Last Admin: 08/24/24 08:31 Dose: 750 mg Documented By: VIKTORIYA Non-Formulary Medication (Norethindrone Acetate) 10 mg PO BEDTIME [facility] Ondansetron HCl (Ondansetron Hcl 4 Mg/2 Ml Vial) 4 mg IVPUSH Q6H PRN PRN Reason: Nausea Last Admin: 08/23/24 14:20 Dose: 4 mg Documented By: ALONSOFARuss Oxycodone HCl (Oxycodone Hcl Immed Release 5 Mg Tablet) 10 mg PO Q6H PRN PRN Reason: Pain, Moderate(Pain Scale 4-6) Sodium Chloride (0.9 % Sodium Chloride Flush 3 Ml Syringe) 3 ml IVFLUSH QSHIFT [facility] Last Admin: 08/24/24 08:50 Dose: Not Given Documented By: VIKTORIYA Non-Admin Reason: Previously Administered Topiramate (Topiramate 100 Mg Tablet) 300 mg PO BEDTIME [facility] Last Admin: 08/23/24 20:19 Dose: 300 mg Documented By: DIONNA Trazodone HCl (Trazodone Hcl 100 Mg Tablet) 200 mg PO BEDTIME [facility] Last Admin: 08/23/24 20:20 Dose: 200 mg Documented By: DIONNA Labs 08/23/24 05:38 08/23/24 05:38 Microbiology Microbiology Results: Microbiology 08/22/24 07:31 Blood Culture - Preliminary Blood - Venous No growth after 48 hours. 08/22/24 07:19 Blood Culture - Preliminary Blood - Venous No growth after 48 hours. Assessment and Plan (1) Incisional pain: Status: Acute (2) Constipation: Status: Acute Plan 44F PMH diverticulitis, stress incontinence, anxiety, depression, bipolar, hyperlipidemia, am anemia, SORAIDA, status post L5-S1 a TLIF with large abdominal hernia mesh repair completed during surgery 06/19/2024 presented with abdominal pain Intractable abdominal pain No cause of pain found , no fevers, normal WBC count, CT abdomen and pelvis showed abundant stool without intestinal obstruction, edema pattern in the deep fat planes of the mid lower abdominal wall without gross fluid collection/gave all test results/reassured patient Will DC IV hydromorphone, placed on oxycodone 10 mg q.6 hours at home was on 5 mg twice daily with no improvement, placed on lidocaine patch, on methocarbamol DC IV Ativan for anxiety , place on Ativan by mouth Constipation resolved was likely due to narcotics continue bowel meds Spoke with Dr. Domínguez he recommend outpatient follow-up with primary surgeon, no acute intervention as per General surgery Recommend outpatient follow-up with primary surgeon. History of B12 deficiency Last B12 level 397 in Patient overdue for B12 shot but nervous about taking it due to side effects of nausea and vomiting that occurs with B12 inj that would exacerbate abdominal pain Reassured patient that she can wait on taking shot. mood disorder On trazodone, lexapro and lorazepam. Class 2 obesity Weight loss recommended SORAIDA DVT prophylaxis with Lovenox Full Code reason for continued hospitalization:symptom control Quality Stroke Does the patient have a stroke diagnosis?: No VTE Prior VTE?: No VTE Risk Level:: Medical - moderate - high VTE Device Contraindication: Treatment Not Indicated VTE Drug Contraindication: N/A - Med Ordered
[2024-08-24] MEDS: Cyanocobalamin (Vitamin B-12) 1,000 MCG/ML VIAL 1000 MCG IM (14:23)
--- NOTE | 2024-08-24 14:33 | MHC.CM.PN ---
IMM DELIVERED PT WAS MADE I/P 08/24/24.
[2024-08-24 15:27] VITALS: BP 111/62; PULSE 74; RESP 18; TEMP 37.2; O2SAT 94
[2024-08-24] MEDS: oxyCODONE HCl Immed Release 5 MG TABLET 10 MG PO (15:37)
[2024-08-24] MEDS: 0.9 % Sodium Chloride Flush 3 ML SYRINGE IVFLUSH (15:38)
[2024-08-24] MEDS: HYDROmorphone HCl 0.5 MG/0.5 ML SYRINGE IVPUSH (16:42)
[2024-08-24] MEDS: Scopolamine 1.5 MG PATCH.TD.3 EAR-BEHIND (18:18)
[2024-08-24] MEDS: Prochlorperazine Edisylate 10 MG/2 ML VIAL 5 MG IVPUSH (18:29)
[2024-08-24 19:49] VITALS: BP 137/82; PULSE 78; RESP 18; TEMP 36.6; O2SAT 95
[2024-08-24] MEDS: ondansetron HCL 4 MG/2 ML VIAL IVPUSH (20:45)
--- NOTE | 2024-08-25 04:57 | PM.EVENT ---
Event Note Date of Service: 08/25/24 Event Note: Discharge date 08/24 Discharge diagnosis: intractable abdominal pain, incisional pain The patient decided to leave AMA as her requests for IV medications not met. i met with her in person and explained to her the need to stay in the hospital and the pain control plan based on surgery and hospitalist evaluations of her pain and the risk of leaving including worsening pain and need to come back to ED. she agreed at first to stay then decided later at night to leave AMA. Time Spent With Patient Time: Total time managing care of this patient today ____ minutes.
== END 2024-08-24 22:30 | disposition left against medical advice (07) | DRG 948 ==
LOC: HO.ED 11:26 → HO.EDOVER 12:15 → HO.S3 19:17
PROVIDERS: Physician Assistant; Admitting Provider Internal Medicine; Emergency Provider Emergency Medicine; PCP Nurse Practitioner Family; Visit Provider Hospitalist
DX: G89.18 Other acute postprocedural pain (principal); F31.9 Bipolar disorder, unspecified; G47.33 Obstructive sleep apnea (adult) (pediatric); E53.8 Deficiency of other specified B group vitamins; K59.03 Drug induced constipation; T40.605A Adverse effect of unspecified narcotics, initial encounter; E66.812 Obesity, class 2; Z68.39 Body mass index [BMI] 39.0-39.9, adult; Z71.3 Dietary counseling and surveillance; Z87.891 Personal history of nicotine dependence; Z79.899 Other long term (current) drug therapy
CPT/HCPCS: 36415; 74177; 80048; 80053; 80076; 81001; 83605; 83690; 83735; 85025; 85027; 85610; 87040; 99221; 99285; J0737; J1171; J1650; J1885; J2060; J2270; J2405; J3420; Q9967

== ENCOUNTER → 2024-08-22 07:07 | Outpatient (BNV) | payer OTHER, SELFPAY | PROVIDERS: Emergency Provider Emergency Medicine; PCP Nurse Practitioner Family; Visit Provider Radiology Diagnostic Radiology | DX: R10.9 Unspecified abdominal pain (principal) | CPT/HCPCS: 74177 ==

== ENCOUNTER → 2024-08-22 12:15 | Outpatient (BNV) | payer OTHER, SELFPAY | PROVIDERS: Admitting Provider Internal Medicine; Emergency Provider Emergency Medicine; PCP Nurse Practitioner Family; Visit Provider Surgery | DX: L76.82 Other postprocedural complications of skin and subcutaneous tissue (principal) | CPT/HCPCS: 99222; 99232 ==

== ENCOUNTER → 2024-08-22 12:15 | Outpatient (BNV) | payer OTHER, SELFPAY | PROVIDERS: Admitting Provider Internal Medicine; Emergency Provider Emergency Medicine; PCP Nurse Practitioner Family; Visit Provider Internal Medicine | DX: L76.82 Other postprocedural complications of skin and subcutaneous tissue (principal); K59.00 Constipation, unspecified | CPT/HCPCS: 99222; 99232; 99499 ==

== ENCOUNTER 2024-08-29 13:59 | Outpatient (REF) | payer OTHER, SELFPAY ==
--- NOTE | ~2024-08-29 | XR_ITS ---
EXAMINATION: XR LUMBAR SPINE 2-3 VIEWS HISTORY: Z98.1 - Arthrodesis status COMPARISON: Comparison is made with the prior examination dated 07/20/2024. FINDINGS: AP and lateral views of the lumbar spine are submitted. Osseous mineralization is normal. The patient is again noted to be status post posterior fusion of L5 and S1 with pedicle screws and spinal stabilization rods. The patient is also status post anterior lumbar interbody fusion at this level. The fusion hardware is intact and unchanged in position. There is mild degenerative disc disease with disc space narrowing and osteophyte formation. The visualized paraspinal soft tissues are unremarkable. XR/XR lumbar spine 2-3V IMPRESSION: Status post fusion at L5 and S1 without change. Mild degenerative disc disease. Electronically signed by: Jeffrey Quesada MD 09/06/2024 01:11 PM [facility]
== END 2024-08-29 14:00 | disposition home or self-care (01) ==
LOC: HO.HOSX 13:59
PROVIDERS: Visit Provider Physician Assistant
DX: Z98.1 Arthrodesis status (principal); L76.82 Other postprocedural complications of skin and subcutaneous tissue
CPT/HCPCS: 72100; 99212

== ENCOUNTER 2024-08-29 14:44 | Outpatient (AMB) | payer OTHER, SELFPAY ==
--- NOTE | 2024-08-29 14:55 | HO.SPINEOV ---
Intake Visit Reasons: 2nd post op with xrays Intake Note: Ms. Bergeron is here today for her 2nd post op appointment with xrays. 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: No Allergies aloe vera [ALOE VERA] Allergy (Intermediate, Verified 08/22/24 06:45) RASH metoclopramide [From REGLAN] Allergy (Intermediate, Verified 08/22/24 06:45) antsy allopurinol Allergy (Unknown, Verified 08/22/24 06:45) does not remember gabapentin Adverse Reaction (Intermediate, Verified 08/22/24 06:45) Muscle cramps pregabalin [From Lyrica] Adverse Reaction (Intermediate, Verified 08/22/24 06:45) Muscle cramps Assessment & Plan Assessment & Plan (1) Incisional pain: Code(s): L76.82 - Other postprocedural complications of skin and subcutaneous tissue Category: Medical Plan Nubia comes in today for subsequent follow up after having L5-S1 ALIF completed with a large abdominal hernia mesh repair done concurrently by vascular surgery. She continues to report right sided lower extremity radiculopathy down the posterior aspect of her right leg terminating near her foot (cannot identify if this includes top or bottom of foot). She also states she has severe abdominal pain, causing her to miss dover and remain essentially bedbound. She continues to report some perineal numbness, and some increased urinary stress incontinence which is better described in my previous office note, during which she was evaluated by the attending neurosurgeon alongside this music writer. She states she has been to the hospital ([facility]) multiple times since surgery, and has been told all of her imaging is unremarkable, aside from copious stool buildup secondary to constipation / partial obstruction. She has been taking stool softeners (docusate) and stimulant laxitives (senna) but is only producing small quantities of stool. She does have a GI provider whom she has not as of yet followed up with regarding. She does have an extensive history of previous abdominal surgeries, and likely has abdominal adhesions. She reports that she has looked into this extensively online and is concerned that she has a nerve root impingement in her spine causing her constipation and pain. I reviewed her CT scan imaging alongside JEAN Loja today. This shows stable placement of surgical construct with no obvious hardware failure. The CT report done by radiology is unremarkable from a spine perspective. On examination there is no evidence of erythema or edema near the anterior incision site. It is closed and well healed. No drainage or obvious complication. She ambulates well but does utilize a cane to mobilize. Nubia is a complicated 44 year old female who underwent L5-S1 ALIF with hernia mesh repair. She has had persistent pain since surgery. She has stress incontinence at baseline that seems to have slightly worsened since surgery as discussed during her previous office visit. She has been evaluated by Dr. Bear (attending vascular surgeon) and Dr. Valle (attending neurosurgeon) who do not express any concerns for complication / infection at this time. I concur. I will be sending her for a MRI lumbar spine with contrast to rule out any nerve impingement as a precautionary measure, due to her concerns regarding her bowel obstructions, urinary issues, and radiculopathy. I will also provide her with a referral to pain management to discuss pain control options, as she is too far out from surgery for us to continue prescribing narcotics for her. I answered all of her questions to the best of my ability. She understands and agrees to this plan. Daniel Valle MD,PhD [facility] Orders: Orders XR lumbar spine 2-3V Today Z98.1 - Arthrodesis status Referrals Pain Management Referral L76.82 - Other postprocedural complications of skin and subcutaneous tissue Coding Level of Care Code Est Pt Level 3 (40268) Diagnoses Incisional pain L76.82
== END 2024-08-29 15:30 | disposition home or self-care (01) ==
PROVIDERS: PCP Nurse Practitioner Family; Visit Provider Physician Assistant
DX: L76.82 Other postprocedural complications of skin and subcutaneous tissue (principal)
CPT/HCPCS: 99024

== ENCOUNTER → 2024-08-29 14:47 | Outpatient (BNV) | payer OTHER, SELFPAY | PROVIDERS: Visit Provider Radiology Diagnostic Radiology | DX: Z98.1 Arthrodesis status (principal) | CPT/HCPCS: 72100 ==

== ENCOUNTER → 2024-09-02 10:59 | Outpatient (BNV) | payer OTHER, SELFPAY | PROVIDERS: PCP Nurse Practitioner Family; Visit Provider Radiology Diagnostic Radiology | DX: L76.82 Other postprocedural complications of skin and subcutaneous tissue (principal) | CPT/HCPCS: 72158 ==

== ENCOUNTER 2024-09-02 11:01 | Outpatient (REF) | payer OTHER, SELFPAY ==
--- NOTE | ~2024-09-02 | MR_ITS ---
CLINICAL HISTORY: L76.82 - Other postprocedural complications of skin and subcutaneous tissue MR lumbar spine with and without IV contrast. COMPARISON: CT lumbar spine dated 08/01/24 at 15:02 EST MR lumbar spine dated 06/10/24 at 12:48 EDT FINDINGS: Artifact from posterior spinal fixation hardware and intervertebral disc spacer at L5-S1 limits evaluation of the lesions. Normal alignment of the anterior and posterior elements. Vertebral body heights are maintained. Marrow signal is benign. Conus terminates at the superior endplate of L1 and is otherwise unremarkable. No abnormal enhancement. Mild edema within the posterior paraspinal soft tissues with a organizing fluid collection or abnormal enhancement identified. Otherwise the visualized paraspinal soft tissues are unremarkable. L5-S1: Intervertebral disc spacer and pedicle screws at this level limits evaluation. L4-L5: Desiccation of the disc. Broad-based posterior disc bulge. Annular fissure present. Disc bulge abuts the exiting L4 nerve roots bilaterally and traversing L5 nerve roots bilaterally. Mild bilateral neural foraminal narrowing. Moderate spinal canal stenosis at this level, mildly worsened from prior imaging. L3-L4: Desiccation of the disc. Broad-based posterior disc bulge. Annular fissure present. Moderate spinal canal stenosis. Mild right neural foraminal narrowing. L2-L3: Desiccation of the disc. Broad-based posterior disc bulge. Annular fissure present. Mild spinal canal stenosis at this level. No significant neural foraminal narrowing. L1-L2: Intervertebral disc is normal in height. No significant disc bulge or central canal stenosis. IMPRESSION: 1. No evidence of acute injury to the lumbar spine. No abnormal enhancement. 2. Interval posterior fixation of the L5-S1 level without evidence of hardware complication within limits of study. 3. Moderate spinal canal stenosis at L4-5 and L3-4. Mild spinal canal stenosis at L2-3. This appears worsened from prior imaging at L4-5. 4. Posterior disc bulge at L4-5 abuts the exiting L4 nerve roots and traversing L5 nerve roots bilaterally, worsened from prior imaging. This document has been electronically signed by: Napoleon Harley MD on 09/02/2024 14:59:52
[2024-09-02] MEDS: gadobutroL 10 ML VIAL IVPUSH (12:36)
--- OUTSIDE RECORDS SUMMARY | 2024-09-02 12:53 | XMS_ITS ---
Author Name [facility] Organization Unknown Results Test Name/Text Value Interpretation Date Range Source AST SerPl-cCnc 22U/L Normal [id number] 10 - 50 HH CCT ALT SerPl-cCnc 23U/L Normal [id number] 10 - 50 [facility] CCT Creat SerPl-mCnc 0.7mg/dL Normal 0.4 - 1.1 [facility] Globulin Ser Calc-mCnc 2.4g/dL Normal 1.5 - 3.9 [facility] CO2 SerPl-sCnc 20mmol/L Below low normal [id number] 22 - 33 [facility] Albumin/Glob SerPl 2Ratio Normal [id number] [facility] Anion Gap Bld-sCnc 12 Normal [id number] [facility] Potassium SerPl-sCnc 3.6mmol/L Normal [id number] 3.4 - 5.3 [facility] Bilirub SerPl-mCnc 0.2mg/dL Normal 0.2 - 1 [facility] Calcium SerPl-mCnc 9mg/dL Normal 8.7 - 10 .5 [facility] BUN SerPl-mCnc 10mg/dL Normal [id number] 8 - 21 HH CCT ALP SerPl-cCnc 37U/L Normal 32 - 122 HH CCT GFR/BSA.pred SerPlBld AQX-XNK-NiCDdr 90 Normal [id number] 59 - [facility] Chloride SerPl-sCnc 110mmol/L Above high normal [id number] 98 - 107 [facility] BUN/Creat SerPl 14Ratio Normal 10 - 25 H [facility] Albumin SerPl-mCnc 4.8g/dL Normal [id number] 3.5 - 5 [facility] Prot SerPl-mCnc 7.2g/dL Normal 6.3 - 8.3 H [facility] Glucose SerPl-mCnc 70mg/dL Normal [id number] 65 - 99 [facility] Sodium SerPl-sCnc 142mmol/L Normal [id number] 136 - 145 [facility] Neutrophils num Bld Auto 4.06Thou/uL Normal [id number] 2 - 7.5 [facility] Monocytes num Bld Auto 0.95Thou/uL Normal [id number] 0. 2 - 1.5 [facility] Eosinophil num Bld Auto 0.07Thou/uL Normal [id number] 0 - 0.7 [facility] WBC num Bld Auto 8.7Thou/uL Normal [id number] 4 - 11 [facility] MCHC RBC Auto-mCnc 33.3g/dL Normal [id number] 30 - 36 [facility] Monocytes/leuk NFr Bld Auto 10.9% Normal [id number] [facility] Hct VFr Bld Auto 41.7% Normal [id number] 35 - 47 [facility] RBC num Bld Auto 4.6Mil/uL Normal [id number] 4 - 5.4 [facility] RDW RBC Auto-Rto 12.9% Normal [id number] 11.5 - 14. 5 [facility] PMV Bld Auto 10fL Normal [id number] 7.5 - 12.[address] Eosinophil/leuk NFr Bld Auto 0.8% Normal [id number] [facility] MCH RBC Qn Auto 30.2pg Normal [id number] 26 - 34 H [facility] Basophils/leuk NFr Bld Auto 0.3% Normal [id number] [facility] Basophils num Bld Auto 0.03Thou/uL Normal [id number] 0 - 0.2 [facility] Platelet num Bld Auto 291Thou/uL Normal [id number] 150 - 450 [facility] Neutrophils/leuk NFr Bld Auto 46.5% Normal [id number] [facility] MCV RBC Auto 91fL Normal [id number] 80 - 100 [facility] T Lymphocytes/leuk NFr Bld Auto 41.3% Normal [id number] [facility] Lymphocytes num Bld Auto 3.61Thou/uL Normal [id number] 1.5 - 4.5 [facility] Imm Granulocytes/leuk NFr Bld Auto 0.2% Normal [id number] [facility] Hgb Bld-mCnc 13.9g/dL Normal [id number] 11.7 - 15.7 HH CCT Imm Granulocytes num Bld Auto 0.02Thou/uL Normal [id number] 0 - 0.1 [facility] URINE HCG, POC Normal [id number] - HH CCT
== END 2024-09-02 11:02 | disposition home or self-care (01) ==
LOC: HO.MRI 11:01
PROVIDERS: PCP Nurse Practitioner Family; Visit Provider Physician Assistant
DX: L76.82 Other postprocedural complications of skin and subcutaneous tissue (principal)
CPT/HCPCS: 72158; A9585

== ENCOUNTER 2024-09-07 10:15 | Outpatient (AMB) | payer OTHER, SELFPAY ==
[2024-09-07 10:32] VITALS: BP 146/88; PULSE 84; O2SAT 97
--- NOTE | 2024-09-07 10:32 | MHC.OFFVIS ---
Vital Signs 09/07/24 10:32 Weight 250 lb BP 146/88 H Blood Pressure Location Rt brachial Position Sitting Pulse 84 Pulse Source Pulse Oximeter Pulse Oximetry (%) 97 Oxygen Delivery Method Room Air Intake Visit Reasons: post-op complications of skin/subcutaneous tissue Ladle Builder Required: No Allergies aloe vera [ALOE VERA] Allergy (Intermediate, Verified 09/07/24 10:33) RASH metoclopramide [From REGLAN] Allergy (Intermediate, Verified 09/07/24 10:33) antsy allopurinol Allergy (Unknown, Verified 09/07/24 10:33) does not remember gabapentin Adverse Reaction (Intermediate, Verified 09/07/24 10:33) Muscle cramps pregabalin [From Lyrica] Adverse Reaction (Intermediate, Verified 09/07/24 10:33) Muscle cramps Medication List - Last Reconciled 09/07/24 by So Alvares, [employer] atorvastatin 20 mg PO BEDTIME biotin 5 mg PO DAILY [cpap mask/supplies Mask for CPAP and any other tubing or supplies.] [crutches crutches dx: sacroiliac fusion patient non weight bearing right leg ] cyanocobalamin (vitamin B-12) 1,000 mcg IM .Q3 weeks 21 days escitalopram oxalate 20 mg PO BEDTIME lorazepam 1 mg PO DAILY PRN methocarbamol 750 mg PO TID norethindrone acetate 10 mg PO BEDTIME prochlorperazine maleate (Compazine) 10 mg PO BID PRN [sacroiliac cushion As directed] scopolamine base 1 patch transdermal Q3D PRN syringe with needle, safety (BD Integra Syringe) q 3 weeks topiramate 300 mg PO BEDTIME trazodone 200 mg PO BEDTIME [wedge pillow for under knees As directed] HPI Comments Details: Nubia is very pleasant 44 years old female who presents in my office with severe distress complaining on the pain in the left side of her abdomen. She reports that this pain started on 06/29/2024 when she had simultaneous surgery on her lower back and in her abdomen. She received L5-S1 posterior fusion by Dr. Valle, and after that she was turned over and Dr. Beaver performed ventral hernia repair. The patient had history of multiple surgeries on her colon in the past related to diverticulosis and diverticulitis. She reported that after the surgery her pain became very severe. She was admitted to [facility] [place] in July and she was examined by general surgery, there were no indications of acute intra-abdominal process. The report of the CT scan dictated as below. She also had an MRI of the lumbar spine report of this MRI is also dictated as below. None of those images would explain left lower quadrant pain is patient in is complaining today. Because of her pain she can not use the muscles of her abdomen. Because of her pain she uses cane for ambulation. She reports that movements aggravate her pain. Topical heat and oral medications make her pain better. In terms of tissue damage he reports her pain as stabbing, lancinating, tugging, pulling, wrenching, dull, sore, aching, heavy, spreading, radiating, piercing. She has an appointment with Dr. Beaver this coming Thursday to evaluate her condition and possibly establish the source of her pain. Her past medical history is significant for depression anxiety and bipolar 2 disorder. She has B12 deficiency anemia and widespread arthritis. Her past surgical history is very extensive. She had 7 abdominal hernia repairs she has a history of total knee replacement on the right. She had history of colon resection and left oophorectomy. History of colostomy and colostomy reversal. She had surgery on her elbow and L5-S1 posterior fusion. She stopped smoking cigarettes in December of 2022. She denies drinking alcohol. She drinks cup of coffee a day. She takes cannabis every day for pain. [facility] Medical History History of marijuana use Arthritis Diverticulitis Stress incontinence Anxiety Depression Vitamin B12 deficiency Elevated cholesterol Anemia Sacroiliitis Sleep apnea Arthritis of knee, left History of abdominal hernia Dyslipidemia Bipolar 2 disorder Surgical History History of lumbar fusion H/O colonoscopy History of partial hypophysectomy H/O hernia repair History of colostomy reversal History of elbow surgery History of left oophorectomy History of partial surgical removal of colon History of total right knee replacement Family History Father Hypertension Mother Pre-diabetes Hypertension Sister Cervical cancer Social History Household Members: Family Household Members Other:: sister Housing: Apartment Housing Other:: third floor Are you a primary intensive care unit registered nurse to a significant other at home: No Do you presently have visiting nurse or other home services: Yes Alcohol intake: current Alcohol intake frequency: does not drink Patient Tobacco Use Status: Former Tobacco user Tobacco use type: Smokeless Tobacco Cigarettes Per Day: 4 Years Smoked: 20 years e-Cigarette/Vaping Use: Never Used Second Hand Smoke Exposure: No Substance Use Type: Marijuana service: No Current occupational status: disabled Cognitive needs: No Hearing needs: No Vision needs: No Review of Systems Const Reports as per HPI, Reports body aches and Reports fatigue ENT Reports Normal hearing present Card Reports no additional complaints Resp Reports no additional complaints GI Reports as per HPI Reports no additional complaints Musc Reports as per HPI Neuro Reports no additional complaints, Reports Normal hearing present, Denies Abnormal speech present and Denies Sensory deficit (Neuro) Psych Reports as per HPI Endo Reports fatigue Physical Exam Vital Signs: Last Vital Signs Pulse 84 09/07/24 10:32 BP 146/88 H 09/07/24 10:32 Pulse Ox 97 09/07/24 10:32 Oxygen Delivery Method Room Air 09/07/24 10:32 Const General: alert, awake, Physically active and acute distress severe Nutritional Appearance: obese centrally obese Orientation/consciousness: patient oriented x3 Limitations: physical limitations and ambulation with cane Eyes General: appearance normal, both eyes and all related structures Pupils: Equal, round and reactive pupils present EOM: EOMs intact bilaterally Neck Neck: Yes full ROM Chest Chest palpation & inspection: normal inspection of the chest Resp Effort & Inspection: normal respiratory effort, able to speak in complete sentences, normal respiratory pattern, no audible wheezes and no cough Cardio Jugular venous distension: no JVD GI Other: On inspection there is a scar on anterior surface of the abdomen approximately 15 cm long. The scar is very well healed there is no redness no swelling no pathological discharge. There is severe tenderness on palpation in right lower quadrant. There is no rebound, there is no rigidity, coughing and sneezing aggravate her pain severely. Reports severe constipations. Reports incontinence with urine. Neuro General: patient oriented x3 and gait normal Cranial nerves: Yes CN's II-XII intact bilaterally, Yes Equal, round and reactive pupils present, Yes Normal hearing present and Yes Ability to bilaterally elevate shoulders present Speech: No Abnormal speech present Gait exam (Neuro): Normal gait present Motor exam (neuro): 5/5 motor strength present throughout Sensory Exam: No Sensory deficit (Neuro) Extrem General: No pedal edema Psych Speech and movement: Normal speech and movement present Affect: normal affect Attitude: cooperative Thought process: Normal thought process present Thought content: Normal thought content present Insight: Good insight present (Psych) Judgement: Good judgement present (Psych) Results Reviewed Results Reviewed: Lumbar spine MRI 09/02/2024. FINDINGS: Artifact from posterior spinal fixation hardware and intervertebral disc spacer at L5-S1 limits evaluation of the lesions. Normal alignment of the anterior and posterior elements. Vertebral body heights are maintained. Marrow signal is benign. Conus terminates at the superior endplate of L1 and is otherwise unremarkable. No abnormal enhancement. Mild edema within the posterior paraspinal soft tissues with a organizing fluid collection or abnormal enhancement identified. Otherwise the visualized paraspinal soft tissues are unremarkable. L5-S1: Intervertebral disc spacer and pedicle screws at this level limits evaluation. L4-L5: Desiccation of the disc. Broad-based posterior disc bulge. Annular fissure present. Disc bulge abuts the exiting L4 nerve roots bilaterally and traversing L5 nerve roots bilaterally. Mild bilateral neural foraminal narrowing. Moderate spinal canal stenosis at this level, mildly worsened from prior imaging. L3-L4: Desiccation of the disc. Broad-based posterior disc bulge. Annular fissure present. Moderate spinal canal stenosis. Mild right neural foraminal narrowing. L2-L3: Desiccation of the disc. Broad-based posterior disc bulge. Annular fissure present. Mild spinal canal stenosis at this level. No significant neural foraminal narrowing. L1-L2: Intervertebral disc is normal in height. No significant disc bulge or central canal stenosis. IMPRESSION: 1. No evidence of acute injury to the lumbar spine. No abnormal enhancement. 2. Interval posterior fixation of the L5-S1 level without evidence of hardware complication within limits of study. 3. Moderate spinal canal stenosis at L4-5 and L3-4. Mild spinal canal stenosis at L2-3. This appears worsened from prior imaging at L4-5. 4. Posterior disc bulge at L4-5 abuts the exiting L4 nerve roots and traversing L5 nerve roots bilaterally, worsened from prior imaging. This document has been electronically signed by: Napoleon Harley MD on 09/02/2024 14:59:[address] ABDOMEN AND PELVIS WITH CONTRAST CLINICAL INFORMATION: Abdominal pain. Status post hernia repair. Status post lumbar fusion. COMPARISON: CT dated April 15, 2024 and April 09, 2015. TECHNIQUE: Multidetector volumetric images were obtained from the superior aspect of the liver through the pubic symphysis following administration 85 mL of Omnipaque 350 intravenous contrast. Sagittal and coronal reformatted images were obtained on the technologist's workstation. Oral contrast: No This CT examination was performed using dose optimization techniques as appropriate, variously including the following: *Automated exposure control *Adjustment of mA and/or kV according to patient size (this includes techniques or standardized protocols for targeted exams where dose is matched to indication/reason for exam; i.e. extremities or head) *Use of iterative reconstruction technique DLP: 1082 mGy-cm FINDINGS: LUNG BASES: No acute airspace disease or gross pulmonary nodules. LIVER, GALLBLADDER, AND BILIARY TREE: Liver measures 15 cm. There are less than 2 cm hypodensities in the anterior in the dome of the left hepatic lobe. The main portal veins, hepatic veins and intrahepatic portion of the IVC are patent. No pericholecystic fluid collection or gallbladder wall thickening. No intrahepatic or extrahepatic biliary ductal dilatation. PANCREAS: No focal mass. No peripancreatic fluid collection. No main pancreatic ductal dilatation. SPLEEN: 9 cm. No focal mass. ADRENAL GLANDS: No nodular lesions. KIDNEYS AND URETERS: No hydronephrosis. No renal mass. Normal enhancement pattern of the renal parenchyma. BLADDER: Fluid-filled. GASTROINTESTINAL TRACT: Abundant stool within the large intestine. Sutures at the sigmoid colon. No intestinal obstruction pattern. No ascites. No pneumoperitoneum. No pneumatosis intestinalis. Appendix is normal. ABDOMINAL WALL: Status post mesh procedure placement in the periumbilical and suprapubic. Edema pattern in the the fat planes of the lower abdomen and pelvis wall. LYMPH NODES: Nonspecific prominent lymph nodes in the retroperitoneum and mesenteric. VASCULAR: No aneurysm or dissection abdominal aorta. Mixed plaques throughout the distal abdominal aorta and iliac arteries. PELVIC VISCERA: Radiopaque T-shaped contraceptive device in the uterus. No gross masses in the adnexa. OSSEOUS STRUCTURES: Status post posterior lumbar fusion L5-S1 with transpedicular screws. Status post intervertebral disc spacer at L5-S1. Multilevel thoracolumbar spondylosis. No acute fracture. Subtle grade 1 retrolisthesis L2-3, L3-4 and L4-5. CT/CT abdomen pelvis w IV con IMPRESSION: Abundant stool without intestinal obstruction pattern. Edema pattern in the deep fat planes of the mid lower abdominal wall without gross fluid collections. Assessment & Plan Assessment & Plan (1) Intractable abdominal pain: Code(s): R10.9 - Unspecified abdominal pain Category: Medical (2) Edema of abdominal wall: Code(s): R60.0 - Localized edema Category: Medical (3) Incisional pain: Code(s): L76.82 - Other postprocedural complications of skin and subcutaneous tissue Category: Medical (4) Constipation: Code(s): K59.00 - Constipation, unspecified Category: Medical (5) S/P spinal fusion: Code(s): Z98.1 - Arthrodesis status Category: Surgical (6) Urinary incontinence: Code(s): R32 - Unspecified urinary incontinence Category: Medical Plan This patient presented today in my office in obvious severe distress. She continued to cry throughout the conversation and examination. She obviously was not able to rest in the chair while discussing her pain and she was holding her left hand against the left lower quadrant of the abdomen all the time throughout the visit. Her MRI although is negative for major changes to which could cause such in his severe abdominal pain. There is minimal L2-L3 stenosis and moderate L3-L4 stenosis but these are unlikely would cause such a strong discomfort in the left abdomen. There is no nerve root compressions in the upper lumbar spine which could be potentially explaining her severe pain. Her CT scan is significant for abdominal wall edema however there is no collections and obvious infections on physical exam. During her hospitalization in [facility] [place] there were several laboratory studies were obtained and did not demonstrate elevated liver enzymes, pancreatic enzymes, white blood cell count was also normal. She has an appointment with Dr. Beaver on Thursday09/12/2023. If there would be no further surgical interventions this patient I recommended her to give us a call and schedule another appointment with us. Is a palliation of her condition I could potentially treat her pain with intrathecal drug delivery system pain pump. Nevro SCS also could be tried treat her abdominal pain. Patient was given a page about psychological evaluation which would be a prerequisite for her neuromodulation treatment. Considering her severe distress on visit today and taken into consideration that this office usually do not prescribe short scripts I decided nevertheless to prescribe her tramadol and moderate doses 50 mg t.i.d.. I gave her amount of medication worse for 7 days and 2 refills on this medication. Medications: New tramadol 50 mg PO Q6H 7 days PRN 28 tabs 2RF pain Patient Instructions: I here by testify that I spent 50 minutes in conversation with this patient as well as evaluating her prior records, evaluating her prior diagnostic images and evaluating her laboratory studies as well as planning her care and organizing this note. Coding Level of Care Code New Pt Level 4 (89449) Diagnoses Intractable abdominal pain R10.9 Edema of abdominal wall R60.0 Incisional pain L76.82 Constipation K59.00 S/P spinal fusion Z98.1 Urinary incontinence R32
== END 2024-09-07 11:05 | disposition home or self-care (01) ==
PROVIDERS: PCP Nurse Practitioner Family; Referring Provider Physician Assistant; Visit Provider Anesthesiology
DX: R10.9 Unspecified abdominal pain (principal); R60.0 Localized edema; L76.82 Other postprocedural complications of skin and subcutaneous tissue; K59.00 Constipation, unspecified; Z98.1 Arthrodesis status; R32 Unspecified urinary incontinence
CPT/HCPCS: 99204

== ENCOUNTER → 2024-09-07 10:15 | Outpatient (BNVA) | payer OTHER, SELFPAY | PROVIDERS: PCP Nurse Practitioner Family; Referring Provider Physician Assistant; Visit Provider Anesthesiology | DX: R10.9 Unspecified abdominal pain (principal); R60.0 Localized edema; R32 Unspecified urinary incontinence; L76.82 Other postprocedural complications of skin and subcutaneous tissue; K59.00 Constipation, unspecified; Z98.1 Arthrodesis status | CPT/HCPCS: 99202 ==

== ENCOUNTER 2024-10-03 11:28 | Outpatient (AMB) | payer OTHER, SELFPAY ==
--- NOTE | 2024-10-03 11:36 | MHC.OFFVIS ---
Vital Signs 10/03/24 11:38 Height 5 ft 7 in Weight 250 lb BMI 39.2 BP 186/108 H Blood Pressure Location Rt radial Position Sitting Respiration 16 Pulse 101 H Pulse Source Pulse Oximeter Pulse Oximetry (%) 97 Oxygen Delivery Method Room Air Intake Visit Reasons: TPI Abdominal Wall Intake Note: BP grossly elevated, taken x 2 Heel Seat Sander Required: No Racehorse Trainer: Racehorse Trainer Present Accompanied by: Facundo T Allergies aloe vera [ALOE VERA] Allergy (Intermediate, Verified 10/03/24 11:40) RASH metoclopramide [From REGLAN] Allergy (Intermediate, Verified 10/03/24 11:40) antsy allopurinol Allergy (Unknown, Verified 10/03/24 11:40) does not remember gabapentin Adverse Reaction (Intermediate, Verified 10/03/24 11:40) Muscle cramps pregabalin [From Lyrica] Adverse Reaction (Intermediate, Verified 10/03/24 11:40) Muscle cramps Medication List - Last Reconciled 10/03/24 by Nadira Duncan LPN atorvastatin 20 mg PO BEDTIME biotin 5 mg PO DAILY [cpap mask/supplies Mask for CPAP and any other tubing or supplies.] [crutches crutches dx: sacroiliac fusion patient non weight bearing right leg ] cyanocobalamin (vitamin B-12) 1,000 mcg IM .Q3 weeks 21 days escitalopram oxalate 20 mg PO BEDTIME lorazepam 1 mg PO DAILY PRN methocarbamol 750 mg PO TID norethindrone acetate 10 mg PO BEDTIME oxycodone 5 mg PO BID PRN 6 days prochlorperazine maleate (Compazine) 10 mg PO BID PRN [sacroiliac cushion As directed] scopolamine base 1 patch transdermal Q3D PRN syringe with needle, safety (BD Integra Syringe) q 3 weeks topiramate 300 mg PO BEDTIME trazodone 200 mg PO BEDTIME [wedge pillow for under knees As directed] HPI Comments Details: Nubia is back in my office to perform trigger point injection into the left abdominal wall. This is recommended by her surgeon Dr. Beaver . She came today in the office with blood pressure 200/108. This is very severe hypertension. Patient states that her high blood pressure she is related to severe pain in the abdomen. I explained to her that while treatment of the pain is important the treatment of blood pressure importance even more. I recommend her to go to the primary care physician and receive medications for blood pressure. I agreed to go for myofascial injection without steroids using only ropivacaine. Patient agreed to go for the procedure informed consent was explained to the patient. I also explained to the patient that her pain most likely myofascial in nature. I told her that the best way to treat myofascial pain syndrome would be low-impact aerobic exercise. Patient has apparently stationary bicycle at home however never used it. Recommended her to start to use the bicycle for aerobic exercises. Alternatively she can not go to local [facility] facility and start swimming there. Prior: very pleasant 44 years old female who presents in my office with severe distress complaining on the pain in the left side of her abdomen. She reports that this pain started on 06/29/2024 when she had simultaneous surgery on her lower back and in her abdomen. She received L5-S1 posterior fusion by Dr. Valle, and after that she was turned over and Dr. Beaver performed ventral hernia repair. The patient had history of multiple surgeries on her colon in the past related to diverticulosis and diverticulitis. She reported that after the surgery her pain became very severe. She was admitted to [facility] [place] and she was examined by general surgery, there were no indications of acute intra-abdominal process. The report of the CT scan dictated as below. She also had an MRI of the lumbar spine report of this MRI is also dictated as below. None of those images would explain left lower quadrant pain is patient in is complaining today. She has an appointment with Dr. Beaver this coming Thursday to evaluate her condition and possibly establish the source of her pain. Her past medical history is significant for depression anxiety and bipolar 2 disorder. She has B12 deficiency anemia and widespread arthritis. Her past surgical history is very extensive. She had 7 abdominal hernia repairs she has a history of total knee replacement on the right. She had history of colon resection and left oophorectomy. History of colostomy and colostomy reversal. She had surgery on her elbow and L5-S1 posterior fusion. She stopped smoking cigarettes in December of 2022. She denies drinking alcohol. She drinks cup of coffee a day. She takes cannabis every day for pain. [facility] Medical History History of marijuana use Arthritis Diverticulitis Stress incontinence Anxiety Depression Vitamin B12 deficiency Elevated cholesterol Anemia Sacroiliitis Sleep apnea Arthritis of knee, left History of abdominal hernia Dyslipidemia Bipolar 2 disorder Surgical History History of lumbar fusion H/O colonoscopy History of partial hypophysectomy H/O hernia repair History of colostomy reversal History of elbow surgery History of left oophorectomy History of partial surgical removal of colon History of total right knee replacement Family History Father Hypertension Mother Pre-diabetes Hypertension Sister Cervical cancer Social History Household Members: Family Household Members Other:: sister Housing: Apartment Housing Other:: third floor Are you a primary animal caregiver to a significant other at home: No Do you presently have visiting nurse or other home services: Yes Alcohol intake: current Alcohol intake frequency: does not drink Patient Tobacco Use Status: Former Tobacco user Tobacco use type: Smokeless Tobacco Cigarettes Per Day: 4 Years Smoked: 20 years e-Cigarette/Vaping Use: Never Used Second Hand Smoke Exposure: No Substance Use Type: Marijuana service: No Current occupational status: disabled Cognitive needs: No Hearing needs: No Vision needs: No Review of Systems Const All systems reviewed & are unremarkable except as noted in HPI and below ENT Reports Normal hearing present Neuro Reports Normal hearing present, Denies Abnormal speech present and Denies Sensory deficit (Neuro) Physical Exam Vital Signs: Last Vital Signs Pulse 101 H 10/03/24 11:38 Resp 16 10/03/24 11:38 BP 186/108 H 10/03/24 11:38 Pulse Ox 97 10/03/24 11:38 Oxygen Delivery Method Room Air 10/03/24 11:38 BMI result Body Mass Index 39.2 Const General: alert, awake, Physically active and acute distress severe Nutritional Appearance: obese centrally obese Orientation/consciousness: patient oriented x3 Limitations: physical limitations and ambulation with cane Eyes General: appearance normal, both eyes and all related structures Pupils: Equal, round and reactive pupils present EOM: EOMs intact bilaterally Neck Neck: Yes full ROM Chest Chest palpation & inspection: normal inspection of the chest Resp Effort & Inspection: normal respiratory effort, able to speak in complete sentences, normal respiratory pattern, no audible wheezes and no cough Cardio Jugular venous distension: no JVD GI Other: On inspection there is a scar on anterior surface of the abdomen approximately 15 cm long. The scar is very well healed there is no redness no swelling no pathological discharge. There is severe tenderness on palpation in right lower quadrant. There is no rebound, there is no rigidity, coughing and sneezing aggravate her pain severely. Reports severe constipations. Reports incontinence with urine. Neuro General: patient oriented x3 and gait normal Cranial nerves: Yes CN's II-XII intact bilaterally, Yes Equal, round and reactive pupils present, Yes Normal hearing present and Yes Ability to bilaterally elevate shoulders present Speech: No Abnormal speech present Gait exam (Neuro): Normal gait present Motor exam (neuro): 5/5 motor strength present throughout Sensory Exam: No Sensory deficit (Neuro) Extrem General: No pedal edema Psych Speech and movement: Normal speech and movement present Affect: normal affect Attitude: cooperative Thought process: Normal thought process present Thought content: Normal thought content present Insight: Good insight present (Psych) Judgement: Good judgement present (Psych) Office Procedures Therapeutic Injection Therapeutic Injection 59652-Xngfoft Point Injection 1 or 2 sites All charges added?: Procedure code (CPT) selection complete Office Meds bupivacaine (PF) 0.5 % (5 mg/mL) injection solution Performing Provider: Guilherme Rodriguez MD Performing Location: [facility] Administered by: Guilherme Rodriguez MD on 10/03/24 12:46 Dose Route Admin Location Dispensed Lot Number Expiration Date [facility] Hearing Aid Assembly Supervisor 10 mL Infiltration abd wall 10 mL 04/30/27 [employer] Results Reviewed Results Reviewed: Lumbar spine MRI 09/02/2024. FINDINGS: Artifact from posterior spinal fixation hardware and intervertebral disc spacer at L5-S1 limits evaluation of the lesions. Normal alignment of the anterior and posterior elements. Vertebral body heights are maintained. Marrow signal is benign. Conus terminates at the superior endplate of L1 and is otherwise unremarkable. No abnormal enhancement. Mild edema within the posterior paraspinal soft tissues with a organizing fluid collection or abnormal enhancement identified. Otherwise the visualized paraspinal soft tissues are unremarkable. L5-S1: Intervertebral disc spacer and pedicle screws at this level limits evaluation. L4-L5: Desiccation of the disc. Broad-based posterior disc bulge. Annular fissure present. Disc bulge abuts the exiting L4 nerve roots bilaterally and traversing L5 nerve roots bilaterally. Mild bilateral neural foraminal narrowing. Moderate spinal canal stenosis at this level, mildly worsened from prior imaging. L3-L4: Desiccation of the disc. Broad-based posterior disc bulge. Annular fissure present. Moderate spinal canal stenosis. Mild right neural foraminal narrowing. L2-L3: Desiccation of the disc. Broad-based posterior disc bulge. Annular fissure present. Mild spinal canal stenosis at this level. No significant neural foraminal narrowing. L1-L2: Intervertebral disc is normal in height. No significant disc bulge or central canal stenosis. IMPRESSION: 1. No evidence of acute injury to the lumbar spine. No abnormal enhancement. 2. Interval posterior fixation of the L5-S1 level without evidence of hardware complication within limits of study. 3. Moderate spinal canal stenosis at L4-5 and L3-4. Mild spinal canal stenosis at L2-3. This appears worsened from prior imaging at L4-5. 4. Posterior disc bulge at L4-5 abuts the exiting L4 nerve roots and traversing L5 nerve roots bilaterally, worsened from prior imaging. This document has been electronically signed by: Napoleon Harley MD on 09/02/2024 14:59:[address] ABDOMEN AND PELVIS WITH CONTRAST CLINICAL INFORMATION: Abdominal pain. Status post hernia repair. Status post lumbar fusion. COMPARISON: CT dated April 15, 2024 and April 09, 2015. TECHNIQUE: Multidetector volumetric images were obtained from the superior aspect of the liver through the pubic symphysis following administration 85 mL of Omnipaque 350 intravenous contrast. Sagittal and coronal reformatted images were obtained on the technologist's workstation. Oral contrast: No This CT examination was performed using dose optimization techniques as appropriate, variously including the following: *Automated exposure control *Adjustment of mA and/or kV according to patient size (this includes techniques or standardized protocols for targeted exams where dose is matched to indication/reason for exam; i.e. extremities or head) *Use of iterative reconstruction technique DLP: 1082 mGy-cm FINDINGS: LUNG BASES: No acute airspace disease or gross pulmonary nodules. LIVER, GALLBLADDER, AND BILIARY TREE: Liver measures 15 cm. There are less than 2 cm hypodensities in the anterior in the dome of the left hepatic lobe. The main portal veins, hepatic veins and intrahepatic portion of the IVC are patent. No pericholecystic fluid collection or gallbladder wall thickening. No intrahepatic or extrahepatic biliary ductal dilatation. PANCREAS: No focal mass. No peripancreatic fluid collection. No main pancreatic ductal dilatation. SPLEEN: 9 cm. No focal mass. ADRENAL GLANDS: No nodular lesions. KIDNEYS AND URETERS: No hydronephrosis. No renal mass. Normal enhancement pattern of the renal parenchyma. BLADDER: Fluid-filled. GASTROINTESTINAL TRACT: Abundant stool within the large intestine. Sutures at the sigmoid colon. No intestinal obstruction pattern. No ascites. No pneumoperitoneum. No pneumatosis intestinalis. Appendix is normal. ABDOMINAL WALL: Status post mesh procedure placement in the periumbilical and suprapubic. Edema pattern in the the fat planes of the lower abdomen and pelvis wall. LYMPH NODES: Nonspecific prominent lymph nodes in the retroperitoneum and mesenteric. VASCULAR: No aneurysm or dissection abdominal aorta. Mixed plaques throughout the distal abdominal aorta and iliac arteries. PELVIC VISCERA: Radiopaque T-shaped contraceptive device in the uterus. No gross masses in the adnexa. OSSEOUS STRUCTURES: Status post posterior lumbar fusion L5-S1 with transpedicular screws. Status post intervertebral disc spacer at L5-S1. Multilevel thoracolumbar spondylosis. No acute fracture. Subtle grade 1 retrolisthesis L2-3, L3-4 and L4-5. CT/CT abdomen pelvis w IV con IMPRESSION: Abundant stool without intestinal obstruction pattern. Edema pattern in the deep fat planes of the mid lower abdominal wall without gross fluid collections. Assessment & Plan Assessment & Plan (1) Myofascial pain syndrome: Code(s): M79.18 - Myalgia, other site Category: Medical (2) Intractable abdominal pain: Code(s): R10.9 - Unspecified abdominal pain Category: Medical (3) Edema of abdominal wall: Code(s): R60.0 - Localized edema Category: Medical (4) Incisional pain: Code(s): L76.82 - Other postprocedural complications of skin and subcutaneous tissue Category: Medical (5) Constipation: Code(s): K59.00 - Constipation, unspecified Category: Medical (6) S/P spinal fusion: Code(s): Z98.1 - Arthrodesis status Category: Surgical (7) Urinary incontinence: Code(s): R32 - Unspecified urinary incontinence Category: Medical Plan This patient presented today in my office in obvious severe distress. She continued to cry throughout the conversation and examination. She obviously was not able to rest in the chair while discussing her pain and she was holding her left hand against the left lower quadrant of the abdomen all the time throughout the visit. Her MRI although is negative for major changes to which could cause such in his severe abdominal pain. There is minimal L2-L3 stenosis and moderate L3-L4 stenosis but these are unlikely would cause such a strong discomfort in the left abdomen. There is no nerve root compressions in the upper lumbar spine which could be potentially explaining her severe pain. Her CT scan is significant for abdominal wall edema however there is no collections and obvious infections on physical exam. During her hospitalization in [facility] there were several laboratory studies were obtained and did not demonstrate elevated liver enzymes, pancreatic enzymes, white blood cell count was also normal. She went appointment with Dr. Beaver on Thursday09/12/2023 who recommended for me to perform trigger point injection. It was performed as above. Her blood pressure was very high today. I recommended her to start low impact aerobic exercises to help her pain. I also recommended her to go to primary care physician and request medication to treat her blood pressure. We agreed that the patient will come back to me in 3 weeks. I will evaluate the results of the injection without steroids. If it would be helpful for the patient I would do repeated injection with steroids. However if it will not be helpful I will offer patient has some sort of a neuromodulation procedure. Spinal cord stimulator [employer] and lumbar positioned versus Nevro SCS in the thoracic positioned comes to my mind to help this patient's pain. Patient was given a page about psychological evaluation which would be a prerequisite for her neuromodulation treatment. Tramadol short script was prescribed to the patient because of the severe pain last time. If patient wants to become a member of chronic opioid program she needs to understand the nature of the oral opioid therapy, risks and benefits of the opioid . Opioid contract opioid consent opioid information page will be explained to the patient. She promised me to go to primary care physician that take care of her blood pressure meanwhile. I will see her in 3 weeks. Orders: Orders AMB Trigger Point Injection Today M79.18 - Myalgia, other site Medications: New bupivacaine (PF) 10 mL Infiltration ONCE 10 mL 0RF M79.18 - Myalgia, other site Patient Instructions: I here by testify that I spent 33 minutes in conversation with this patient as well as planning her care organizing this note evaluating prior records. Coding Level of Care Code Est Pt Level 4 (51609) Procedure Only Diagnoses Myofascial pain syndrome M79.18 Intractable abdominal pain R10.9 Edema of abdominal wall R60.0 Incisional pain L76.82 Constipation K59.00 S/P spinal fusion Z98.1 Urinary incontinence R32 CPT Codes Therapeutic Injection - Ther Injection 1: 18745-Swfhrtl Point Injection 1 or 2 sites ([id number])
[2024-10-03 11:38] VITALS: BP 186/108; PULSE 101; RESP 16; O2SAT 97; BMI 39.2
--- OUTSIDE RECORDS SUMMARY | 2024-10-03 12:45 | XMS_ITS ---
Author Organization [facility] Address Unknown Allergies, Adverse Reactions, Alerts Substance Reaction Status Noted Date Resolved Date Reglan active 04/16/2023 aloe vera active 04/16/2023 Problems Problem Status Start Date End Date OTHER INTERVERTEBRAL DISC DE GENERATION, LUMBOSACRAL REGION (Primary) (M51.37 - ICD-10-CM) ACTIVE 04/16/2023 OTHER LOW BACK PAIN (M54.59 - ICD-10-CM) ACTIVE 04/16/2023 PAIN IN LEG, UNSPECIFIED (M79.606 - ICD-10-CM) ACTIVE 04/16/2023 COVID-19 (U07.1 - ICD-10-CM) ACTIVE 04/23/2023 DEPRESSION, UNSPECIFIED (F32.A - ICD-10-CM) ACTIVE 04/16/2023 ANXIETY DISORDER, UNSPECIFIED (F41.9 - ICD-10-CM) ACTI VE 04/16/2023 GASTRO-ESOPHAGEAL REFLUX DIS EASE WITHOUT ESOPHAGITIS (K21.9 - ICD-10-CM) ACTIVE 04/16/2023 STRESS INCONTINENCE (FEMALE) (MALE) (N39.3 - ICD-10-CM ) ACTIVE 04/16/2023 Results * XRAY ABDOMEN 1 VIEW (KUB) Performed by: [employer] Component Value Range Date XRAY ABDOMEN 1 VIEW (KUB) XRAY ABDOMEN 1 VIEW (KUB)FINDINGS: The bowel gas pattern is normal. No abdominal masses or abnormal calcifications are seen. There is mild fecal retention in the colon.CONCLUSION: No obstruction or ileus is seen. There is mild fecal retention in the colon compatible with constipation.ELECTRONICALLY SIGNED BY KARAN RIGGS M.D. 04/26/2023 3:05:04 PM EDT.Reason for Study: J98.6 DISORDERS OF DIAPHRAGMPrincipal Result Correctional Substance Abuse Counselor: KARAN RIGGS ([phone])Investor Relations Analyst: YAYA AGUIAR ([facility])Psychological Science Professor Investor Relations Analyst: MARITZA 04/26/2023 03:05 pm EDT Encounters Encounter Performer Performer Role Encounter Diagnoses Location Date Discharge - Discharged to home or self care - Home - Home [facility] 04/16/2023 08:12 pm EDT - 05/06/2023 05:13 pm EDT Immunizations Vaccine Date Influenza 10/01/2021 12:00 am EST TB 2 Step Mantoux Skin Test 05/04/2023 0 9:50 am EDT SARS-COV-2 (COVID-19) 09/12/2021 12:00 a m EST SARS-COV-2 (COVID-19) 01/02/2021 12:00 a m EDT SARS-COV-2 (COVID-19) 12/12/2020 12:00 a m EDT [id number] Pfizer Bivalent 08/13/2022 12:00 am EST Social History
--- OUTSIDE RECORDS SUMMARY | 2024-10-03 12:46 | XMS_ITS | Encounter Summary ---
Author Organization [facility], Address [address] [place] [address] Phone Care Team Providers Care Program Production Specialist Name Role Phone Unavailable Primary Care Provider Unavailabl e Encounter Details Date Type Department Care Team (Late st Contact Info) Description 09/12/2024 8:45 AM EST Office Visit [facility] [address] [place] [address] Luis Manuel Beaver MD [address] [place] [phone] Incisional hernia without obstruction or gangrene (Primary Dx) Social History Tobacco Use Types Packs/Day Years Used Date Smoking Tobacco: Never Assessed Comments Unknown Sex and Gender Information Value Date Recorded Sex Assigned at Not on file Legal Sex Female 8:55 AM EDT Gender Identity Not on file Sexual Orientation Not on file documented as of this encounter Progress Notes * Luis Manuel Beaver MD - 09/12/2024 8:45 AM EST Surgical Office Note 09/12/24 Procedure: ALIF and Incisional hernia repair revision Patient Reports: Severe constant lower abdominal pain on the left, sharp, pulling , worse with movement, constipation. On Tramadol with no relief. Recent ER visit with CT scan which revealed no abnormalities. Was seen by Dr. Guilherme Rodriguez at [place] [facility] and pain pump was offered. Physical Exam: Large pannus unchanged. No recurrent hernia. Point tendernes at the left lower transabdominal stitch, no erythema. There were no vitals filed for this visit. Impression: Postoperative pain, likely neuropathic. Will reffer back to pain clinic for Local/Steroid injections at the sited of most tenderness. and possible RA block. These can be repeated. If noeffect will consider exploration and stitch removal. Will order small amount of Dilaudid. Continue Nano-lax 2 scoops as needed. Abdominal binder documented in this encounter Plan of Treatment Not on file documented as of this encounter Visit Diagnoses Diagnosis Incisional hernia without obstruction or gangrene- Primary documented in this encounter
--- OUTSIDE RECORDS SUMMARY | 2024-10-03 12:46 | XMS_ITS | Encounter Summary ---
Author Organization [facility], Address [address] [place] [address] Phone Care Team Providers Care Addictions Recovery Specialist Name Role Phone Unavailable Primary Care Provider Unavailabl e Encounter Details Date Type Department Care Team (Late st Contact Info) Description 09/08/2024 Telephone [facility] [address] [place] [phone] Melissa Salmeron [address] [place] [phone] Social History Tobacco Use Types Packs/Day Years Used Date Smoking Tobacco: Never Assessed Comments Unknown Sex and Gender Information Value Date Recorded Sex Assigned at Not on file Legal Sex Female 8:55 AM EDT Gender Identity Not on file Sexual Orientation Not on file documented as of this encounter Miscellaneous Notes * Telephone Encounter - Melissa Salmeron - 09/08/2024 9:47 AM EST OFFICE VISIT REMINDER COMMUNICATION Spoke to Nubia and confirmed office visit scheduled on 09/12/23. documented in this encounter Plan of Treatment Not on file documented as of this encounter Visit Diagnoses Not on filedocumented in this encounter
--- OUTSIDE RECORDS SUMMARY | 2024-10-03 12:46 | XMS_ITS | Encounter Summary ---
Author Organization [facility] Address [address] [place] [address] Phone Care Team Providers Care Thermocouple Tester Name Role Phone Unavailable Primary Care Provider Unavailabl e Reason for Visit * Reason Onset Date Comments Dilaudid script clarification 09/12/2024 Encounter Details Date Type Department Care Team (Latest Contact Info) Description 09/12/2024 Documentation Only [facility] [address] [place] [address] Paige Martinez [address] [place] [address] Dilaudid script clarification Social History Tobacco Use Types Packs/Day Years Used Date Smoking Tobacco: Never Assessed Comments Unknown Sex and Gender Information Value Date Recorded Sex Assigned at Not on file Legal Sex Female 8:55 AM EDT Gender Identity Not on file Sexual Orientation Not on file documented as of this encounter Progress Notes * Paige Martinez - 09/12/2024 4:18 PM EST Pt called stating that pharmacy had questions about the dilaudid script that Dr Beaver sent in. Author called pharmacy. S/w Hiral at [facility]. She asked if Dr Beaver could addpartial fill allowed if pt requested to the prescription. Author Gaudencio Rico messaged Dr Alejandra approved adding the partial fill if pt request to the script. Hiral took verbal authorization from author. Author called pt back to advise that her script should be ready shortly. documented in this encounter Plan of Treatment Not on file documented as of this encounter Visit Diagnoses Not on filedocumented in this encounter
--- OUTSIDE RECORDS SUMMARY | 2024-10-03 12:46 | XMS_ITS | Clinical Summary ---
Author Organization [facility] Address [address] [place] [id number] Care Team Providers Care Fire Safety Inspector Name Role Phone Todd Rice MD Primary Care Provider [phone] Allergies Active Allergy Reactions Criticality Noted Date Comments Aloe Hives,Itching,Swelling Medium 07/01/2023 Gabapentin Other (See Comments) 07/01/2023 mucsle spasms Metoclopramide Other (See Comments) Low 04/16/2023 Muscle spasms Pregabalin Other (See Comments) 07/01/2023 muscle spasms Medications Medication Sig Dispensed Refills Start Date End Date Status atorvastatin (LIPITOR) 20 MG tablet 01/04/2024 Active cyanocobalamin (VITAMIN B-12) 1000 MCG/ML injection 01/27/2024 Active cycloSPORINE (RESTASIS) 0.05 % ophthalmic emulsion 01/08/2024 Activ e escitalopram (LEXAPRO) 20 MG tablet 11/02/2023 Active methocarbamol (ROBAXIN) 750 MG tablet 12/08/2023 Active norethindrone (AYGESTIN) 5 MG tablet 01/20/2024 Active oxyCODONE (ROXICODONE) 5 MG immediate release tablet 12/08/2023 Active oxyCODONE-acetamino phen (PERCOCET) 5-325 mg per tablet 11/02/2023 Activ e proCHLORPERAZINE (COMPAZINE) 5 MG tablet 01/08/2024 Active scopolamine (TRANSDERM-SCOP) patch 01/08/2024 Active topiramate (TOPAMAX) 100 MG tablet 01/18/2024 Active acetaminophen (TYLENOL) 500 MG tablet Take 2 tablets (1,000 mg total) by mouth every 8 (eight) hours around the clock. 30 tablet 02/07/2024 Active methocarbamol (ROBAXIN) 750 MG tablet Take 1 tablet (750 mg total) by mouth 4 times daily (every 6 hours) as needed for muscle spasms. 20 tablet 02/07/2024 Active predniSONE (DELTASONE) 10 MG tablet 6 tabs daily x 2 days, 5 tabs daily x 2 days, 4 tabs daily x 2 days, 3 tabs daily x 2 days, 2 tabs daily x 2 days, 1 tab daily x 2 days Do not start before February 08, 2024. 42 tablet 02/08/2024 Active oxyCODONE (ROXICODONE) 5 MG immediate release tablet Take 1 tablet (5 mg total) by mouth 4 times daily (every 6 hours) as needed for severe pain. Max Daily Amount: 20 mg 10 tablet 02/07/2024 Active naloxone (NARCAN) 4 mg/0.1 mL Liquid nasal spray device [place] 4 mg (1 nasal spray) as a single dose; may repeat every 2 to 3 minutes in alt nostrils until medical assistance is available. 0.2 mL 02/07/2024 Active lidocaine (LIDODERM) 5 % patch Place 3 patches on the skin daily. Apply patch and leave on for 12 hours then remove. Patch may remain on skin for 12 hours per day. 30 patch 02/07/2024 Active Social History Tobacco Use Types Packs/Day Years Used Date Smoking Tobacco: Every Day E-Cigarettes Smokeless Tobacco: Never Comments:Former cigarette sm oker-quit 2022 Alcohol Use Standard Drinks/Week Comments Not Currently 0 (1 standard drink = 0.6 oz pur e alcohol) rare Sex and Gender Information Value Date Recorded Sex Assigned at Female 02/07/2024 2:24 PM EDT Gender Identity Choose not to disclose 2:24 PM EDT Sexual Orientation Homosexual (lesbian or macedo) 0 02/07/2024 2:24 PM EDT Last Filed Vital Signs Vital Sign Reading Time Taken Comments Blood Pressure 127/70 02/07/2024 2:12 PM EDT Pulse 76 02/07/2024 2:12 PM EDT Temperature 36.8 ??C (98.3 ??F) 02/07/2024 2:12 PM ED T Respiratory Rate 18 02/07/2024 2:12 PM EDT Oxygen Saturation 98% 02/07/2024 2:12 PM EDT Inhaled Oxygen Concentration - - Weight 104 kg (230 lb) 02/07/2024 2:12 PM EDT Height 170.2 cm (5' 7 ) 02/07/2024 2:12 PM EDT Body Mass Index 36.02 02/07/2024 2:12 PM EDT Plan of Treatment Health Maintenance Due Date Last Done Comments Hepatitis C Virus Screening 1978 HIV Screening 1991 DTaP/Tdap/Td Vaccines (1 - Tdap) 1997 Hepatitis B Vaccines (1 of 3 - 19+ 3-dose series) 1997 Pneumococcal Vaccine: Pediat andreia (0-5 Years) and At-Risk Patients (6 to 49 Years) (1 of 2 - PCV) 1997 Pap Smear (Ages 21-65) 1999 Mammogram 2018 Colonoscopy 2023 Influenza Vaccine 03/31/2024 10/01/2021 COVID-19 Vaccine (5 - 2023-2 5 season) 2024 08/13/2022, 09/12/2021, 01/02/2021, Additional history exists Care Teams Fire Safety Inspector Relationship Specialty Start Date End Date Todd Rice MD [address] [place] [address] PCP - General Family Medicine 02/07/24
--- OUTSIDE RECORDS SUMMARY | 2024-10-03 12:46 | XMS_ITS | Clinical Summary ---
Author Organization [facility], Address [address] [place] [address] Phone Care Team Providers Care Engraver Block Name Role Phone Unavailable Primary Care Provider Unavailabl e Allergies Active Allergy Reactions Criticality Noted Date Comments Allopurinol 05/24/2024 unsure Aloe Hives,Itching,Swelling Medium 04/16/2023 Gabapentin Other (see comments) 07/01/2023 mucsle spasms Metoclopramide Other (see comments) Low 04/16/2023 Other Reaction(s): Feeling Irritable Muscle spasms Pregabalin Other (see comments) 07/01/2023 muscle spasms Medications acetaminophen (TYLENOL) 500 MG tablet Take 1,000 mg by mouth in the morning and 1,000 mg at noon and 1,000 mg in the evening. 4 Active atorvastatin (LIPITOR) 20 MG tablet 4 Active cyanocobalamin (VITAMIN B-12) 1000 MCG/ML injection 4 Active cyclobenzaprine (FLEXERIL) 5 MG tablet Take 5 mg by mouth 4 Active clonazePAM (KlonoPIN) 1 MG tablet 3 Active escitalopram (LEXAPRO) 20 MG tablet 4 Active Docusate Sodium (DSS) 100 MG capsule Take 100 mg by mouth 5 Active folic acid (FOLVITE) 1 MG tablet Take 1 mg by mouth 2 Active traZODone (DESYREL) 300 MG tablet Take 200 mg by mouth in the morning. Active LORazepam (Ativan) 1 MG tablet Take 1 mg by mouth 3 Active norethindrone (AYGESTIN) 5 MG tablet 1 (one) time each day 3 Active nystatin (MYCOSTATIN) powder 4 Active prochlorperazin e (COMPAZINE) 5 MG tablet 3 Active scopolamine (TRANSDERM-SCOP ) 1 MG/3DAYS patch 72 hour 3 Active senna (SENOKOT) 8.6 MG tablet Take 8.6 mg by mouth 5 Active topiramate (TOPAMAX) 100 MG tablet 2 Active Elastic Bandages & Supports (Abdominal Binder/Elastic 2XL) misc 1 Device 1 (one) time if needed (while upright) for up to 1 dose 1 each 5 Active Elastic Bandages & Supports (Abdominal Binder/Elastic 2XL) misc 1 Implant 1 (one) time each day 1 each 5 Active HYDROmorphone (Dilaudid) 4 MG tablet Take 1 tablet (4 mg total) by mouth every 6 (six) hours if needed for moderate pain for up to 15 days 15 tablet 5 09/27/19 25 Active Problems Problem Noted Date Diagnosed Date Morbid obesity 05/24/2024 Disorder of sacrum 08/06/2023 COVID-19 04/23/2023 Anxiety disorder 04/16/2023 Chronic low back pain 04/16/2023 Depressive disorder 04/16/2023 Gastro-esophageal reflux disease without esophag itis 04/16/2023 Other intervertebral disc de generation, lumbosacral region, NOS 04/16/2023 Overview (05/31/2024): Replacing diagnoses that were inactivated after the 05/31/24 Regulatory Import Pain in leg, unspecified 04/16/2023 Stress incontinence (female) (male) 04/16/2023 Encounters Date Type Department Care Team Description 09/12/2024 8:45 AM EST Office Visit [facility] [address] [place] [address] [place] [phone] Luis Manuel Beaver MD Incisional hernia without obstruction or gangrene (Primary Dx) 09/12/2024 Documentation Only [facility] [address] [place] [address] Paige Martinez script clarification 09/08/2024 Telephone [facility] [address] [place] [phone] Melissa Salmeron 09/02/2024 Telephone [facility] [address] [place] [phone] Gabrielle Villavicencio 08/04/2024 10:30 AM EST Office Visit [facility] Access [address] [place] [address] Luis Manuel Beaver MD Incisional hernia without mention of obstruction or gangrene (Primary Dx); Degeneration of lumbar intervertebral disc <With discogenic back pain and lower extremity pain> from Last 3 Months Social History Tobacco Use Types Packs/Day Years Used Date Smoking Tobacco: Never Assessed Comments Unknown Sex and Gender Information Value Date Recorded Sex Assigned at Not on file Legal Sex Female 8:55 AM EDT Gender Identity Not on file Sexual Orientation Not on file Last Filed Vital Signs Vital Sign Reading Time Taken Comments Blood Pressure 154/91 05/25/2024 3:12 PM EDT Pulse 73 05/25/2024 3:12 PM EDT Temperature 36.2 ??C (97.2 ??F) 05/25/2024 3:12 PM ED T Respiratory Rate - - Oxygen Saturation 97% 05/25/2024 3:12 PM EDT Inhaled Oxygen Concentration - - Weight 109 kg (240 lb) 05/25/2024 3:12 PM EDT Height 170.2 cm (5' 7 ) 05/25/2024 3:12 PM EDT Body Mass Index 37.59 05/25/2024 3:12 PM EDT Plan of Treatment Health Maintenance Due Date Last Done Comments Hepatitis B Vaccine (1 of 3 - 19+ 3-dose series) 1997 Influenza Vaccine (#1) 2024 Pneumococcal Vaccine: Pediat rics (0 to 5 Years) and At-Risk Patients (6 to 64 Years) Aged Out No longer eligi ble based on patient's age to complete this topic Insurance [facility] CARE DUAL SNP ([id number])
--- OUTSIDE RECORDS SUMMARY | 2024-10-03 12:46 | XMS_ITS | Clinical Summary ---
Author Organization [employer] [facility] it Address [address] [place] [address] Care Team Providers Care Geophysics Professor Name Role Phone Unavailable Primary Care Provider Unavailabl e Encounters Date Type Department Care Team Description 08/30/2024 Telephone Gastroenterology - [address] [place] [address] Mireya Camp MD from Last 3 Months Surgical History Surgery Date Site/Laterality Comments COLONOSCOPY 03/06/2009 PROCEDURE: MT COLONOSCOPY FLX DX W/COLLJ SPEC WHEN PFRMD; COMMENT: Negative/limited examination to 25 cm; diverticulosis. OTHER SURGICAL HISTORY 2008 PROCEDURE: ---- OTHER ----; COMMENT: Left tuboovarian abscess and diverticular abscess; had left salpingo-oophorectomy, lysis of adhesions, and sigmoid colostomy Family History Medical History Relation Name Comments Colon cancer Maternal Grandfather Relation Name Status Comments Father Alive injuries Maternal Grandfather Mother Alive healthy Sister Alive 3,healthy Social History Tobacco Use Types Packs/Day Years Used Date Smoking Tobacco: Former Cigarettes Q uit: 09/06/2007 Alcohol Use Standard Drinks/Week Comments Yes 0 (1 standard drink = 0.6 oz pur e alcohol) Sex and Gender Information Value Date Recorded Sex Assigned at Not on file Gender Identity Not on file Sexual Orientation Not on file Obstetrics History Plan of Treatment Health Maintenance Due Date Last Done Comments Breast Cancer Screening 1978 DTaP,Tdap,and Td Vaccines (1 - Tdap) 1997 Hepatitis B Vaccines (1 of 3 - 19+ 3-dose series) 1997 Cervical Cancer Screening: P ap Smear 1999 COVID-19 Vaccine (2023-2 5 season) 2024 Influenza Vaccine (#1) 2024 Colorectal Cancer Screening: Colonoscopy 08/30/2024 Depression Screening 08/30/2024 HIV Screening 08/30/2024 Hepatitis C Screening 08/30/2024 Social Influencers of Health Screening 08/30/2024 HIB Vaccines Aged Out No longer eligi ble based on patient's age to complete this topic HPV Vaccines Aged Out No longer eligi ble based on patient's age to complete this topic Hepatitis A Vaccines Aged Out No long er eligible based on patient's age to complete this topic IPV Vaccines Aged Out No longer eligi ble based on patient's age to complete this topic MMR Vaccines Aged Out No longer eligi ble based on patient's age to complete this topic Meningococcal ACWY Vaccine Aged Out N o longer eligible based on patient's age to complete this topic Pneumococcal Vaccine: Pediat rics (0 to 5 Years) and At-Risk Patients (6 to 64 Years) Aged Out No longer eligible b ased on patient's age to complete this topic RSV Immunization Patients Un osiel 20 months Aged Out No longer eligible b ased on patient's age to complete this topic Varicella Vaccines Aged Out No longer eligible based on patient's age to complete this topic
--- OUTSIDE RECORDS SUMMARY | 2024-10-03 12:46 | XMS_ITS | Data Portability ---
Author Organization [employer] Address [address] [place] [phone] Care Team Providers Care Volunteer Coordinator Name Role Phone [facility] Referring Provider [phone] Assessment No assessment recorded. Plan of Treatment Reminders Order Date Submit Date Provider Last Modified By Organization Details Last Modified Time Details Appointments None record ed. Lab None record ed. Referral None record ed. Procedures None record ed. Surgeries None record ed. Imaging None record ed. Medication Orders None record ed. Patient TargetsNo targets recorded. Patient InstructionsNo instructions recorded. Reason for Referral None Reported. Medical Equipment None Reported. Medications Name Sig Start Date Stop Date Status Note LastModified by Organization Details LastModified Time prednisone 10 mg tablet TAKE 3 TABLETS BY MOUTH ON 03/01/22 AND TAKE 2 TABLETS BY MOUTH ON 03/02/22 AND STOP active Not Available Not Available No t Available cetirizine 10 mg tablet TAKE 1 TABLET BY MOUTH EVERY DAY active Not Available Not Available No t Available atorvastatin 10 mg tablet TAKE 1 TABLET BY MOUTH AT BEDTIME FOR 90 DAYS active Not Available Not Available No t Available ibuprofen 800 mg tablet TAKE 1 TABLET ORALLY EVERY 8 HOURS NEEDED FOR PAIN FOR 30 DAYS active Not Available Not Available No t Available ondansetron 8 mg disintegrati ng tablet DISSOLVE 1 TABLET BY MOUTH EVERY 8 HOURS NEEDED FOR NAUSEA/VOMI TING FOR 30 DAYS active Not Available Not Available No t Available trazodone 100 mg tablet TAKE 3-4 TABS BY MOUTH AT BEDTIME active Not Available Not Available No t Available cyanocobalam in (vit B-12) 1,000 mcg/mL injection solution INJECT 1ML INTRAMUSCUA LRLY EVERY 3 WEEKS FOR 21 DAYS IN OFFICE INJECTIONS active Not Available Not Available N ot Available BD Luer-Yonis Syringe 3 mL 25 gauge x 1 active Not Available Not Available Not Available Lupron Depot 3.75 mg intramuscula r syringe kit active Not Available Not Available Not Available folic acid 1 mg tablet TAKE 1 TABLET BY MOUTH EVERY DAY active Not Available Not Available No t Available nystatin 100,000 unit/gram topical powder APPLY 1 APPLICATION EXTERNALLY TWICE A DAY FOR 10 DAYS active Not Available Not Available Not Available lorazepam 1 mg tablet TAKE 1 TABLET BY MOUTH TWICE A DAY NEEDED active Not Available Not Available No t Available scopolamine 1 mg over [address] 1 PATCH TRANSDERMAL LY EVERY 3 DAYS NEEDED FOR MOTION SICKNESS active Not Available Not Available No t Available topiramate 100 mg tablet TAKE 3 TABLETS BY MOUTH AT BEDTIME active Not Available Not Available No t Available fluticasone propionate 50 mcg/actuatio n nasal spray,suspen zev active Not Available Not Available Not Available oxycodone 5 mg tablet TAKE 1 TABLET BY MOUTH EVERY 6 HOURS NEEDED FOR SEVERE PAIN active Not Available Not Available Not Available bupropion HCl XL 300 mg 24 hr tablet, extended release TAKE 1 TABLET BY MOUTH EVERY DAY IN THE MORNING active Not Available Not Available No t Available bupropion HCl XL 150 mg 24 hr tablet, extended release TAKE 1 TABLET BY MOUTH EVERY DAY IN THE MORNING active Not Available Not Available No t Available tizanidine 4 mg capsule TAKE 1 CAPSULE BY MOUTH DAILY NEEDED FOR MUSCLE SPASTICITY FOR 30 DAYS active Not Available Not Available Not Available BD Integra Syringe 3 mL 25 gauge x 1 USE DIRECTED *NOT COVERED* active Not Available Not Available No t Available Vitals Date Recorded Body temperature Heart rate Respiratory rate Oxygen saturation Oxygen saturation in Arterial blood by Pulse oximetry Respiratory rate Oxygen saturation Oxygen saturation in Arterial blood by Pulse oximetry Body temperature Heart rate Body temperature Oxygen saturation Oxygen saturation in Arterial blood by Pulse oximetry Heart rate Respiratory rate Systolic blood pressure Diastolic blood pressure Systolic blood pressure Diastolic blood pressure Systolic blood pressure Diastolic blood pressure Provider Name and Address Organization Details Last Updated DateTime 3 98.4 [degF] 85 /min 16 /min 97 % 97 % 16 /min 97 % 97 % 98.4 [degF] 85 /min 98.4 [degF] 97 % 97 % 85 /min 16 /min 145 mm[Hg] 83 mm[Hg] 145 mm[Hg] 83 mm[Hg] 145 mm[Hg] 83 mm[Hg] Not Available [employer] - production 3 11:56:43 Social History None recorded. Functional Status None recorded. Mental Status None recorded. Family History Nothing Reported. Medical History No medical history recorded. Gynecological HistoryNo gynecological history recorded. Obstetrics History GPAL:G 0 P 0 0 0 0 Past Encounters Encounter ID Performer Location Encounter Start Date Encounter Closed Date Diagnosis/Indication Diagnosis SNOMED-CT Code Diagnosis ICD10 Code Diagnosis Note [id number] Albert Mariscal MD [address] [phone] 02/21/2023 11:40:33 02/23/2023 09:59:30 Vitamin B12 deficiency (non anemic) 09654975 E53.8 Veneer Cutter gave B12 injection with no issues. Vitals stable. Health Concerns Section Related Observation LastModified by Organization Detai ls LastModified Time None Recorded Concern Status LastModified by Organization Details LastModified Time None Recorded Advance Directives Directive None Recorded Payers Encounter Date Sequence Insurance Name Policy Number Policy Casas Covered Member ID Casas Member ID Guarantor Name 02/21/2023 1 [facility] - DOS ON OR AFTER 2022 - DUAL ELIGIBLE - RETIREMENT OPTIONS AND ONE CARE (MEDICARE REPLACEMENT/ADV ANTAGE - HMO) Nubia Bergeron [id number] Nubia Bergeron Notes Date Note Type Note Provider Name and Address Organization Details Recorded Time 02/21/2023 text/html HPI: Member needs assistance with a B12 injection on Thursday02/21/23. She usually has family assist but family will be away this weekend. Member has supplies and B12 in the home. Please schedule for 02/21/23 to assist member with B12 injection. ................. ................. ................. ................. ................. ................. ................. ................. ..... CRC Nursing Assessment: Comments: CRC RN DID NOT NEED FURTHER INFO< CRC RN VERIFIED THAT TEAM IS ABLE TO COMPLETE THIS TASK ................. ................. ................. ................. ................. ................. ................. ................. ..... Veneer Cutter Note From Ned Breen: Assisted pt with vit b12 injection due to deficiency ................. ................. ................. ................. ................. ................. ................. ................. ..... Disposition: Fulfilled Albert Mariscal MD [address] [facility],[address], [place], [address], [employer] 02/21/2023 20:48:40 OBGyn Episode No OBEpisode recorded.
== END 2024-10-03 12:04 | disposition home or self-care (01) ==
PROVIDERS: PCP Nurse Practitioner Family; Visit Provider Anesthesiology
DX: M79.18 Myalgia, other site (principal); R10.9 Unspecified abdominal pain; R60.0 Localized edema; L76.82 Other postprocedural complications of skin and subcutaneous tissue; K59.00 Constipation, unspecified; Z98.1 Arthrodesis status; R32 Unspecified urinary incontinence
CPT/HCPCS: 20552; 99214

== ENCOUNTER → 2024-10-03 11:28 | Outpatient (BNVA) | payer OTHER, SELFPAY | PROVIDERS: PCP Nurse Practitioner Family; Visit Provider Anesthesiology | DX: M79.18 Myalgia, other site (principal); R10.9 Unspecified abdominal pain; R60.0 Localized edema; R32 Unspecified urinary incontinence; L76.82 Other postprocedural complications of skin and subcutaneous tissue; K59.00 Constipation, unspecified; Z98.1 Arthrodesis status | CPT/HCPCS: 20552; 99212; J0665 ==

== ENCOUNTER 2024-10-24 11:17 | Outpatient (AMB) | payer OTHER, SELFPAY ==
--- NOTE | 2024-10-24 11:20 | A.OFFVIS_ITS ---
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: No Accompanied by: Self / Same As Patient Allergies aloe vera [ALOE VERA] Allergy (Intermediate, Verified 10/24/24 11:24) RASH metoclopramide [From REGLAN] Allergy (Intermediate, Verified 10/24/24 11:24) antsy allopurinol Allergy (Unknown, Verified 10/24/24 11:24) does not remember gabapentin Adverse Reaction (Intermediate, Verified 10/24/24 11:24) Muscle cramps pregabalin [From Lyrica] Adverse Reaction (Intermediate, Verified 10/24/24 11:24) Muscle cramps HPI Comments Details: Nubia is in my office today to assess the results of the trigger point injection which was performed on her by recommendation of Dr. Beaver. The trigger point injection was done with ropivacaine only without steroids as a diagnostic procedure. Patient reported pain aggravation and not pain improvement after the trigger point injection. She came back to Dr. Beaver who agreed to perform revision of his hernia repair. The patient is requesting me to start her on opioid medications while she is waiting for her procedure. Unfortunately this office does not prescribe short course opioids. If she would like to become a member of chronic opioid program in the future we could try to admit her to the chronic opioid therapy on the trial basis. She has multiple psychological issues, she needs to be thoroughly evaluated with opioid addiction risk. She already reports severe constipation. Opioid medications have potential ability to make her constipation worse. At the same time I believe Nevro spinal cord stimulator at higher thoracic positioned T4-T6 could be a good way to treat this patient's pain. Prior: Severe intractable pain in the left side of the abdomen. pain started on 06/29/2024 when she had simultaneous surgery on her lower back and in her abdomen. She received L5-S1 posterior fusion by Dr. Valle, and after that she was turned over and Dr. Beaver performed ventral hernia repair. The patient had history of multiple surgeries on her colon in the past related to diverticulosis and diverticulitis. She was admitted to [facility] in July and she was examined by general surgery, there were no indications of acute intra- abdominal process. The report of the CT scan dictated as below. She also had an MRI of the lumbar spine report of this MRI is also dictated as below. None of those images would explain left lower quadrant pain is patient in is complaining today. She has an appointment with Dr. Beaver this coming Thursday to evaluate her condition and possibly establish the source of Her past surgical history is very extensive. She had 7 abdominal hernia repairs she has a history of total knee replacement on the right. She had history of colon resection and left oophorectomy. History of colostomy and colostomy reversal. She had surgery on her elbow and L5-S1 posterior fusion. She stopped smoking cigarettes in December of 2022. She denies drinking alcohol. She drinks cup of coffee a day. She takes cannabis every day for pain. [facility] Medical History History of marijuana use Arthritis Diverticulitis Stress incontinence Anxiety Depression Vitamin B12 deficiency Elevated cholesterol Anemia Sacroiliitis Sleep apnea Arthritis of knee, left History of abdominal hernia Dyslipidemia Bipolar 2 disorder Surgical History History of lumbar fusion H/O colonoscopy History of partial hypophysectomy H/O hernia repair History of colostomy reversal History of elbow surgery History of left oophorectomy History of partial surgical removal of colon History of total right knee replacement Family History Father Hypertension Mother Pre-diabetes Hypertension Sister Cervical cancer Social History Household Members: Family Household Members Other:: sister Housing: Apartment Housing Other:: third floor Are you a primary transitional care liaison to a significant other at home: No Do you presently have visiting nurse or other home services: Yes Alcohol intake: current Alcohol intake frequency: does not drink Patient Tobacco Use Status: Former Tobacco user Tobacco use type: Smokeless Tobacco Cigarettes Per Day: 4 Years Smoked: 20 years e-Cigarette/Vaping Use: Never Used Second Hand Smoke Exposure: No Substance Use Type: Marijuana service: No Current occupational status: disabled Cognitive needs: No Hearing needs: No Vision needs: No Review of Systems Const All systems reviewed & are unremarkable except as noted in HPI and below ENT Reports Normal hearing present Neuro Reports Normal hearing present, Denies Abnormal speech present and Denies Sensory deficit (Neuro) Physical Exam Const General: alert, awake, Physically active and acute distress severe Nutritional Appearance: obese centrally obese Orientation/consciousness: patient oriented x3 Limitations: physical limitations and ambulation with cane Eyes General: appearance normal, both eyes and all related structures Pupils: Equal, round and reactive pupils present EOM: EOMs intact bilaterally Neck Neck: Yes full ROM Chest Chest palpation & inspection: normal inspection of the chest Resp Effort & Inspection: normal respiratory effort, able to speak in complete sentences, normal respiratory pattern, no audible wheezes and no cough Cardio Jugular venous distension: no JVD GI Other: On inspection there is a scar on anterior surface of the abdomen approximately 15 cm long. The scar is very well healed there is no redness no swelling no pathological discharge. There is severe tenderness on palpation in right lower quadrant. There is no rebound, there is no rigidity, coughing and sneezing aggravate her pain severely. Reports severe constipations. Reports incontinence with urine. Neuro General: patient oriented x3 and gait normal Cranial nerves: Yes CN's II-XII intact bilaterally, Yes Equal, round and reactive pupils present, Yes Normal hearing present and Yes Ability to bilaterally elevate shoulders present Speech: No Abnormal speech present Gait exam (Neuro): Normal gait present Motor exam (neuro): 5/5 motor strength present throughout Sensory Exam: No Sensory deficit (Neuro) Extrem General: No pedal edema Psych Speech and movement: Normal speech and movement present Affect: normal affect Attitude: cooperative Thought process: Normal thought process present Thought content: Normal thought content present Insight: Good insight present (Psych) Judgement: Good judgement present (Psych) Results Reviewed Results Reviewed: Lumbar spine MRI 09/02/2024. FINDINGS: Artifact from posterior spinal fixation hardware and intervertebral disc spacer at L5-S1 limits evaluation of the lesions. Normal alignment of the anterior and posterior elements. Vertebral body heights are maintained. Marrow signal is benign. Conus terminates at the superior endplate of L1 and is otherwise unremarkable. No abnormal enhancement. Mild edema within the posterior paraspinal soft tissues with a organizing fluid collection or abnormal enhancement identified. Otherwise the visualized paraspinal soft tissues are unremarkable. L5-S1: Intervertebral disc spacer and pedicle screws at this level limits evaluation. L4-L5: Desiccation of the disc. Broad-based posterior disc bulge. Annular fissure present. Disc bulge abuts the exiting L4 nerve roots bilaterally and traversing L5 nerve roots bilaterally. Mild bilateral neural foraminal narrowing. Moderate spinal canal stenosis at this level, mildly worsened from prior imaging. L3-L4: Desiccation of the disc. Broad-based posterior disc bulge. Annular fissure present. Moderate spinal canal stenosis. Mild right neural foraminal narrowing. L2-L3: Desiccation of the disc. Broad-based posterior disc bulge. Annular fissure present. Mild spinal canal stenosis at this level. No significant neural foraminal narrowing. L1-L2: Intervertebral disc is normal in height. No significant disc bulge or central canal stenosis. IMPRESSION: 1. No evidence of acute injury to the lumbar spine. No abnormal enhancement. 2. Interval posterior fixation of the L5-S1 level without evidence of hardware complication within limits of study. 3. Moderate spinal canal stenosis at L4-5 and L3-4. Mild spinal canal stenosis at L2-3. This appears worsened from prior imaging at L4-5. 4. Posterior disc bulge at L4-5 abuts the exiting L4 nerve roots and traversing L5 nerve roots bilaterally, worsened from prior imaging. This document has been electronically signed by: Napoleon Harley MD on 09/02/2024 14:59:52 CT ABDOMEN AND PELVIS WITH CONTRAST CLINICAL INFORMATION: Abdominal pain. Status post hernia repair. Status post lumbar fusion. COMPARISON: CT dated April 15, 2024 and April 09, 2015. TECHNIQUE: Multidetector volumetric images were obtained from the superior aspect of the liver through the pubic symphysis following administration 85 mL of Omnipaque 350 intravenous contrast. Sagittal and coronal reformatted images were obtained on the technologist's workstation. FINDINGS: LUNG BASES: No acute airspace disease or gross pulmonary nodules. LIVER, GALLBLADDER, AND BILIARY TREE: Liver measures 15 cm. There are less than 2 cm hypodensities in the anterior in the dome of the left hepatic lobe. The main portal veins, hepatic veins and intrahepatic portion of the IVC are patent. No pericholecystic fluid collection or gallbladder wall thickening. No intrahepatic or extrahepatic biliary ductal dilatation. PANCREAS: No focal mass. No peripancreatic fluid collection. No main pancreatic ductal dilatation. SPLEEN: 9 cm. No focal mass. ADRENAL GLANDS: No nodular lesions. KIDNEYS AND URETERS: No hydronephrosis. No renal mass. Normal enhancement pattern of the renal parenchyma. BLADDER: Fluid-filled. GASTROINTESTINAL TRACT: Abundant stool within the large intestine. Sutures at the sigmoid colon. No intestinal obstruction pattern. No ascites. No pneumoperitoneum. No pneumatosis intestinalis. Appendix is normal. ABDOMINAL WALL: Status post mesh procedure placement in the periumbilical and suprapubic. Edema pattern in the the fat planes of the lower abdomen and pelvis wall. LYMPH NODES: Nonspecific prominent lymph nodes in the retroperitoneum and mesenteric. VASCULAR: No aneurysm or dissection abdominal aorta. Mixed plaques throughout the distal abdominal aorta and iliac arteries. PELVIC VISCERA: Radiopaque T-shaped contraceptive device in the uterus. No gross masses in the adnexa. OSSEOUS STRUCTURES: Status post posterior lumbar fusion L5-S1 with transpedicular screws. Status post intervertebral disc spacer at L5-S1. Multilevel thoracolumbar spondylosis. No acute fracture. Subtle grade 1 retrolisthesis L2-3, L3-4 and L4-5. IMPRESSION: Abundant stool without intestinal obstruction pattern. Edema pattern in the deep fat planes of the mid lower abdominal wall without gross fluid collections. Assessment & Plan Assessment & Plan (1) Myofascial pain syndrome: Code(s): M79.18 - Myalgia, other site Category: Medical (2) Intractable abdominal pain: Code(s): R10.9 - Unspecified abdominal pain Category: Medical (3) Edema of abdominal wall: Code(s): R60.0 - Localized edema Category: Medical (4) Incisional pain: Code(s): L76.82 - Other postprocedural complications of skin and subcutaneous tissue Category: Medical (5) Constipation: Code(s): K59.00 - Constipation, unspecified Category: Medical (6) S/P spinal fusion: Code(s): Z98.1 - Arthrodesis status Category: Surgical (7) Urinary incontinence: Code(s): R32 - Unspecified urinary incontinence Category: Medical Plan She will go to Dr. Beaver again who is going to perform a revision of her hernia repair. She insists on starting her on chronic opioid therapy. I explained to her that this is not something which could be done in 1 day. Opioid consent opioid contract opioid information page could be distributed to the patient in the future if she continues to complain on pain in the abdomen. UDS, opioid addiction risk would need to be assessed. I also discussed with her possibility of treating her pain with Nevro spinal cord stimulator. She seemed to be very reluctant to get into psychological evaluation to prepare for this procedure. She states that she is on disability and does not have 100 dollars to pay a co-pay for [employer] point. The same time she has a psychiatrist/psychologist who is treating her psychological problems and maybe able to give us psychological evaluation for the neuromodulation. She is recommended to find a PCP who would agree to issue a short prescription for her while she is waiting for DR. Beaver's procedure. Coding Level of Care Code Est Pt Level 3 (20485) Diagnoses Myofascial pain syndrome M79.18 Intractable abdominal pain R10.9 Edema of abdominal wall R60.0 Incisional pain L76.82 Constipation K59.00 S/P spinal fusion Z98.1 Urinary incontinence R32
[2024-10-24 11:24] VITALS: BP 172/97; PULSE 80; O2SAT 96; BMI 39.2
--- OUTSIDE RECORDS SUMMARY | 2024-10-24 13:00 | XMS_ITS | Data Portability ---
Author Organization [employer] Address [address] [place] [address] Care Team Providers Care On Line Csr Name Role Phone [facility] Referring Provider [phone] Assessment No assessment recorded. Plan of Treatment [...] SNOMED-CT Code Diagnosis ICD10 Code Diagnosis Note [id number] Albert Mariscal MD [address] [address] 02/21/2023 11:40:33 02/23/2023 09:59:30 Vitamin B12 deficiency (non anemic) [id number] E53.8 Geometry Professor gave B12 injection with no issues. Vitals stable. Health Concerns Section Related Observation LastModified by Organization Detai ls LastModified Time None Recorded Concern Status LastModified by Organization Details LastModified Time None Recorded Advance Directives Directive None Recorded Payers Encounter Date Sequence Insurance Name Policy Number Policy Casas Covered Member ID Casas Member ID Guarantor Name 02/21/2023 1 [facility] - DOS ON OR AFTER 2022 - DUAL ELIGIBLE - RETIREMENT OPTIONS AND ONE CARE (MEDICARE REPLACEMENT/ADV ANTAGE - HMO) Nubia Bergeron [id number] Nubia Bergeron Notes Date Note Type Note [...] ................. ................. ................. ................. ................. ................. ..... Geometry Professor Note From Ned Breen: Assisted pt with vit b12 injection due to deficiency ................. ................. ................. ................. ................. ................. ................. ................. ..... Disposition: Fulfilled Albert Mariscal MD [address] [facility], [place], [address], [employer] 02/21/2023 20:48:40 OBGyn Episode No OBEpisode recorded.
--- OUTSIDE RECORDS SUMMARY | 2024-10-24 13:00 | XMS_ITS | Encounter Summary ---
Author Organization [facility], Address [address] [place] [address] Phone Care Team Providers Care Bow Stapler Name Role Phone Unavailable Primary Care Provider Unavailabl e Encounter Details Date Type Department Care Team (Late st Contact Info) Description 10/10/2024 Telephone [facility] [address] [place] [address] Gabrielle Villavicencio [address] [place] [address] Social History Tobacco Use Types Packs/Day Years Used Date Smoking Tobacco: Never Assessed Comments Unknown Sex and Gender Information Value Date Recorded Sex Assigned at Not on file Legal Sex Female 8:55 AM EDT Gender Identity Not on file Sexual Orientation Not on file documented as of this encounter Miscellaneous Notes * Telephone Encounter - Gabrielle Villavicencio - 10/10/2024 10:00 AM EST Pt called stating she was in severe pain and the pain management shot didn't help. Informed Dr. Beaver and he advised pt go to ER or call pain management office and let them know the medicine she was given didn't work. documented in this encounter Plan of Treatment Not on file documented as of this encounter Visit Diagnoses Not on filedocumented in this encounter
--- OUTSIDE RECORDS SUMMARY | 2024-10-24 13:00 | XMS_ITS ---
Author Organization [facility] Address [address] [address] Care Team Providers Care Cylinder Inspector And Tester Name Role Phone JASPREET COWAN M.D Primary Care Provider LUPE Hobbs [phone] REASON FOR VISIT NORTHINDRON REFILL Medications Medication SIG (Take, Route, Frequency, Duration) Notes Start Date End Date Status Norethindrone Acetate 5 MG TAKE TWO TABL ETS BY MOUTH ONCE DAILY Orally Once a day for 30 days Active Encounters Encounter Location Date Provider Diagnosis [facility] [address] [address] 01/20/2024 LUPE MONROE Plan Of Treatment Medication Medication Name Sig Start Date Stop Date Notes Norethindrone Acetate 5 MG TAKE TWO TABL ETS BY MOUTH ONCE DAILY Orally Once a day for 30 days Next Appt Details Provider Name:LUPE Soler, 05/08/2025 10:30:00 AM, [address] [place] [address], [place], [address], Progress Notes * JO ANN LEDESMADOB:[birth year] (43 yo F)Acc No.[id number]:01/20/2024 Patient:?JO ANN LEDESMA :1980???Age:43 Y???Sex:Female Address[address], [place], [address] * Refills? Refill Norethindrone Acetate Tablet, 5 MG, Orally, 60, TAKE TWO TABLETS BY MOUTH ONCE DAILY, Once a day, 30 days, Refills=1 * true * Date:? Generated for Zaki woo/Davey/Mandi on:?10/24/2024 01:00 PM EST
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
--- OUTSIDE RECORDS SUMMARY | 2024-10-24 13:00 | XMS_ITS | Clinical Summary ---
Author Organization [facility] it Address [address] [place] [address] Care Team Providers Care Lens Maker Name Role Phone Unavailable Primary Care Provider Unavailabl e Encounters Date Type Department Care Team Description 08/30/2024 Telephone Gastroenterology - [address] [place] [address] Mireya Camp MD from Last 3 Months Surgical History Surgery Date Site/Laterality Comments COLONOSCOPY 03/06/2009 PROCEDURE: MI COLONOSCOPY FLX DX W/COLLJ SPEC WHEN PFRMD; [...] drink = 0.6 oz pur e alcohol) Comments Unknown Sex and Gender Information Value Date Recorded Sex Assigned at Not on file Legal Sex Female 7:39 PM EST Gender Identity Not on file Sexual Orientation Not on file Obstetrics History Plan of Treatment Health Maintenance Due Date Last Done Comments Breast Cancer Screening 1978 DTaP,Tdap,and Td Vaccines (1 - Tdap) 1997 Hepatitis B Vaccines (1 of 3 - 19+ 3-dose series) 1997 Cervical Cancer Screening: P ap Smear 1999 COVID-19 Vaccine (1 - 2024-2 5 season) 2024 Influenza Vaccine (#1) 2024 [...] patient's age to complete this topic Meningococcal B Vacine Aged Out No lo nger eligible based on patient's age to complete [...]
--- OUTSIDE RECORDS SUMMARY | 2024-10-24 13:00 | XMS_ITS | Clinical Summary ---
Author Organization [facility], Address [address] [place] [address] Phone Care Team Providers Care Site Leader Name Role Phone Unavailable Primary Care Provider [...] (six) hours if needed for moderate pain or severe pain for up to 15 doses 15 tablet 5 Active HYDROmorphone (Dilaudid) 4 MG tablet [...] Encounters Date Type Department Care Team Description 10/19/2024 1:00 PM EST Office Visit [facility] - [facility] [address] [place] [address] [place] [address] Luis Manuel Beaver MD Ventral hernia w/o gangrene (Primary Dx) 10/10/2024 Telephone [facility] Vascular Access [address] [place] [address] Gabrielle Villavicencio 09/12/2024 8:45 AM EST Office Visit [facility] Vascular [address] [place] [address] Luis Manuel Beaver MD Incisional hernia without obstruction or gangrene (Primary Dx) 09/12/2024 Documentation Only [facility] [address] [place] [address] Paige Martinezid script clarification 09/08/2024 Telephone [facility] Vascular [address] [place] [address] Melissa Salmeron 09/02/2024 Telephone [facility] [address] [place] [address] Gabrielle Villavicencio 08/04/2024 10:30 AM EST Office Visit [facility] [address] [place] [address] Luis Manuel Beaver MD Incisional hernia without [...] patient's age to complete this topic Insurance [facility] CARE DUAL SNP ([id number]) JEAN CHOE [id number]
--- OUTSIDE RECORDS SUMMARY | 2024-10-24 13:00 | XMS_ITS ---
Author Organization [employer] [facility] Address [address] [address] Care Team Providers Care Senior Agricultural Assistant Name Role Phone JASPREET COWAN M.D Primary Care Provider LUPE Hobbs [phone] REASON FOR VISIT RX REFILL Medications Medication SIG (Take, Route, Frequency, Duration) Notes Start Date End Date Status Norethindrone Acetate 5 MG TAKE TWO TABL ETS BY MOUTH ONCE DAILY Orally Once a day for 30 days Active Encounters Encounter Location Date Provider Diagnosis [facility] [address] [address] 03/29/2024 LUPE MONROE Plan Of Treatment Medication Medication Name Sig Start Date Stop Date Notes Norethindrone Acetate 5 MG TAKE TWO TABL ETS BY MOUTH ONCE DAILY Orally Once a day for 30 days Next Appt Details Provider Name:LUPE Soler, 05/08/2025 10:30:00 AM, [address] [place] [address], [place], [address], Progress Notes * ADEOLAVIOLETALOY MonzonVIJAYDOB:[birth year] (43 yo F)Acc No.[id number]:03/29/2024 Patient:?JO ANN LEDESMA :1980???Age:43 Y???Sex:Female Address:[address] [place] [address] [email or web address] [address], [place], [address] * Refills? Refill Norethindrone Acetate Tablet, 5 MG, Orally, 60, TAKE TWO TABLETS BY MOUTH ONCE DAILY, Once a day, 30 days, Refills=1 * true * Date:? Generated for Zaki woo/Davey/Mandi on:?10/24/2024 12:59 PM EST
--- OUTSIDE RECORDS SUMMARY | 2024-10-24 13:00 | XMS_ITS | Patient Health Record ---
Author Organization [facility] Address [address] [place] [address] Care Team Providers Care Motion Picture Set Worker Name Role Phone JASPREET COWAN M.D Primary Care Provider LUPE Hobbs Unavailable [phone] Allergies Allergen (clinical drug ingredient) Drug/Non Drug Allergy documented on EMR Reaction Allergy Type Onset Date Status Aloe itching Drug Allergy Active metoclopramide Reglan agitation Drug Allergy Ac tive Reason For Referral No Information Medications Medication SIG (Take, Route, Frequency, Duration) Notes Start Date End Date Status B-12 Compliance Injection 1000 MCG/ML 1 ml Injection for 30 day(s) Active traZODone HCl 100 MG 1 tablet at bedtime Orally Once a day for 30 day(s) 200 Mg QD Active Nystatin 449733 UNIT/GM 1 application Externally Twice a day for 10 days 11/28/2021 Active Topamax 200 MG 1 tablet Orally Twice a day for 30 day(s) Active Norethindrone Acetate 5 MG TAKE TWO TABLETS BY MOUTH ONCE DAILY Orally Once a day for 90 days Active Scopolamine 1 MG/3DAYS Transdermal for 72 Active Mirena (52 MG) 20 MCG/24HR as directed Intrauterine inserted 07/11/21 Active Atorvastatin Calcium 20 MG 1 tablet Orally Once a day for 30 days Active Ativan 1 MG 1 tablet at bedtime as needed Orally Once a day Active Social History Tobacco Use: Social History [...] user Modera te cigarette smoker (10-19 cigs/day) Problems Problem Type SNOMED Code ICD Code Onset Dates Problem Status W/U Status Risk Notes Problem Excessive and freque nt menstruation (734068544) Excessive and frequent menstruation with regular cycle (N92.0) Active confirmed Problem Dysmenorrhea (490236717) Dysmenorrhea, unspecified (N94.6) Active confirmed Problem Anemia due to chroni c blood loss (disorder) (114167909) 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 Problem Bipolar II disorder (28178212) Bipolar II disorder (F31.81) Active confirmed Problem Endometriosis (clinical) (972877432) Other endometriosis (N80.8) Active confirmed Problem Abnormal uterine bleeding (48957849226096) Abnormal uterine and vaginal bleeding, unspecified (N93.9) Active confirmed Problem Intrauterine contraceptive device in situ (finding) (955438265) Presence of (intrauterine) contraceptive device (Z97.5) Active confirmed Problem Endometriosis (854283794) Endometriosis, unspecified (N80.9) Active confirmed Problem Dysmenorrhea (154090791) Dysmenorrhea, unspecified (N94.6) Active confirmed Problem SI - Stress incontinence (48583915) Stress incontinence (female) (male) (N39.3) Active confirmed Problem Pure hypercholesterolemia (170129461) Pure hypercholestero lemia, unspecified (E78.00) Active confirmed Vital Signs Temperature 97.1 degrees Fahrenheit 05/03/2024 Blood pressure diastolic 90 mm Hg 05/03/2024 Height 67 in 05/03/2024 Blood pressure systolic 120 mm Hg 05/03/2024 Weight 245 lbs 05/03/2024 BMI 38.37 kg/m2 05/03/2024 Encounters Encounter Location Date Provider Diagnosis [address] [place] [address] 05/03/2024 LUPE MONROE Encounter for gynecological examination (general) (routine) without abnormal findings Z01.419 ; Encounter for screening mammogram for malignant neoplasm of breast Z12.31 ; Presence of (intrauterine) contraceptive device Z97.5 ; Unspecified lump in the left breast, lower inner quadrant N63.24 ; Other endometriosis N80.8 and Other sites of candidiasis B37.89 [facility] [address] [place] [address] 01/20/2024 LUPE MONROE [facility] [address] [place] [address] 03/29/2024 LUPE MONROE Assessments Encounter Date Diagnosis (ICD Code) Assessment [...] Advised to bring this up with her snap shearer to see if they have a different recommendation Plan Of Treatment Pending Test Test Name Order Date Sonohysterogram 05/16/2021 Test, Urine 06/14/2021 Test, Urine 07/11/2021 Urinalysis 05/16/2021 ULTRASOUND: PELVIC W/TRANSVAGINAL 2020 Diagnostic Left Breast Mammo/US 05/03/20 24 MM Digital Screening Mammogram 3D 2021 MM Digital Screening Mammogram 3D 2022 MM Digital Screening Mammogram 3D 2023 Next Appt Details Provider Name:LUPERuss Soler, 05/08/2025 10:30:00 AM, [address], [place], [address], Insurance Providers Payer Name Payer Address Payer Phone Subscriber Number Group Number Insured Name Patient Relationship to Insured Coverage Start Date Coverage End Date [facility] [address] [place] [address] [id number] LOY LEDESMAANDA Self - patient is the insured Medications Administered Medication Instructions Date of Administration Dosage Notes DEPO LUPRON 02/13/2022 3.75 mg DEPO LUPRON 03/17/2022 3.75 mg DEPO LUPRON 04/17/2022 3.75 mg DEPO LUPRON 05/16/2022 DEPO LUPRON 12/11/2022 3.75 mg DEPO LUPRON 01/12/2023 3.75 mg DEPO LUPRON 02/12/2023 3.75 mg Medical (General) History Medical History History ICD Code Bipolar II disorder F31.81 Pure hypercholesterolemia, unspecified E 78.00 Endometriosis, unspecified N80.9 Surgical History Surgery Date(Month/Year) Lt Oophorectomy - due to diverticulitis/ endometriosis 02/2009 At least 7 abdominal surgeries Sacro-iliac fusion - right side 10/2023 Hospitalization History Reason Date(Month/Year) Hospitalized x 5 days for back issues See Surgical Hx
--- OUTSIDE RECORDS SUMMARY | 2024-10-24 13:00 | XMS_ITS | Clinical Summary ---
Author Organization [facility] Address [address] [place] [address] Care Team Providers Care Crepe Sole Scourer Name Role Phone Todd Rice MD Primary Care Provider Allergies Active Allergy Reactions Criticality Noted Date [...] 4 mg/0.1 mL Liquid nasal spray device [place] 4 mg (1 nasal spray) as a [...] 09/12/2021, 01/02/2021, Additional history exists Care Teams Crepe Sole Scourer Relationship Specialty Start Date End Date Todd Rice MD [address] [place] [address] PCP - General Family Medicine 02/07/24
--- OUTSIDE RECORDS SUMMARY | 2024-10-24 13:00 | XMS_ITS | Encounter Summary ---
Author Organization [facility], Address [address] [place] [address] Phone Care Team Providers Care Button Pusher Name Role Phone Unavailable Primary Care Provider Unavailabl e Encounter Details Date Type Department Care Team (Late st Contact Info) Description 10/19/2024 1:00 PM EST Office Visit [facility] - [facility] [address] [place] [address] Luis Manuel Beaver MD [address] [place] [address] [place] [address] Ventral hernia w/o gangrene (Primary Dx) Social History Tobacco Use Types Packs/Day Years Used Date Smoking Tobacco: Never Assessed Comments Unknown Sex and Gender Information Value Date Recorded Sex Assigned at Not on file Legal Sex Female 8:55 AM EDT Gender Identity Not on file Sexual Orientation Not on file documented as of this encounter Progress Notes * Luis Manuel Beaver MD - 10/19/2024 1:00 PM EST Images from the original note were not included. Surgical Office Note 10/19/24 S/P ventral hernia repair at the time of OLIF. Doing well from the back. Continues to have sharp pain in the left suprapubic area with any movement. Several admissions in ED, CT scan normal with no recurrent hernia or collection Physical Exam: There were no vitals filed for this visit. General: appears to be in pain. Vitals reviewed. Eyes: Pupils are equal, round, and reactive to light. Cardiovascular: Normal rate and regular rhythm. Pulmonary/Chest: Effort normal and breath sounds normal. Abdominal: Soft. She exhibits no distension. No hernia. Significant tenderness on the left under the pannus where stitch is palpated Impression: Neuropathic pain possibly related to the trnsabdominal stitch Plan: Schedule for scar revision and stitch removal under [facility] in [place]. Given another Rx for Dilaudid for 15 pills until then documented in this encounter Plan of Treatment Not on file documented as of this encounter Visit Diagnoses Diagnosis Ventral hernia w/o gangrene- Primary documented in this encounter
== END 2024-10-24 11:38 | disposition home or self-care (01) ==
PROVIDERS: PCP Nurse Practitioner Family; Visit Provider Anesthesiology
DX: M79.18 Myalgia, other site (principal); R10.9 Unspecified abdominal pain; R60.0 Localized edema; L76.82 Other postprocedural complications of skin and subcutaneous tissue; K59.00 Constipation, unspecified; Z98.1 Arthrodesis status; R32 Unspecified urinary incontinence
CPT/HCPCS: 99213

== ENCOUNTER → 2024-10-24 11:17 | Outpatient (BNVA) | payer OTHER, SELFPAY | PROVIDERS: PCP Nurse Practitioner Family; Visit Provider Anesthesiology | DX: M79.18 Myalgia, other site (principal); R10.9 Unspecified abdominal pain; R60.0 Localized edema; R32 Unspecified urinary incontinence; L76.82 Other postprocedural complications of skin and subcutaneous tissue; K59.00 Constipation, unspecified; Z98.1 Arthrodesis status | CPT/HCPCS: 99212 ==

== ENCOUNTER 2025-01-02 10:05 | Outpatient (AMB) | payer OTHER, SELFPAY ==
[2025-01-02 10:10] VITALS: BP 175/106; PULSE 86; O2SAT 95; BMI 41.2
--- NOTE | 2025-01-02 10:10 | A.OFFVIS_ITS ---
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 Operator Helper Required: No Allergies aloe vera [ALOE VERA] Allergy (Intermediate, Verified 01/02/25 10:11) RASH metoclopramide [From REGLAN] Allergy (Intermediate, Verified 01/02/25 10:11) antsy allopurinol Allergy (Unknown, Verified 01/02/25 10:11) does not remember gabapentin Adverse Reaction (Intermediate, Verified 01/02/25 10:11) Muscle cramps pregabalin [From Lyrica] Adverse Reaction (Intermediate, Verified 01/02/25 10:11) Muscle cramps Medication List - Last Reconciled 01/02/25 by So Alvares, REELING OPERATOR atorvastatin 20 mg PO BEDTIME biotin 5 mg PO DAILY [cpap mask/supplies Mask for CPAP and any other tubing or supplies.] [crutches crutches dx: sacroiliac fusion patient non weight bearing right leg ] cyanocobalamin (vitamin B-12) 1,000 mcg IM .Q3 weeks 21 days escitalopram oxalate 20 mg PO BEDTIME lorazepam 1 mg PO DAILY PRN methocarbamol 750 mg PO TID metoprolol succinate ER 25 mg PO BID 30 days norethindrone acetate 10 mg PO BEDTIME oxycodone 5 mg PO BID PRN 14 days prochlorperazine maleate (Compazine) 10 mg PO BID PRN [sacroiliac cushion As directed] scopolamine base 1 patch transdermal Q3D PRN syringe with needle, safety (BD Integra Syringe) q 3 weeks topiramate 300 mg PO BEDTIME trazodone 200 mg PO BEDTIME [wedge pillow for under knees As directed] HPI Comments Details: Nubia is in my office today for the follow-up. I was not able to alleviate pain of the patient by performing trigger point injection on recommendation of Dr. Beaver, he after that took patient to the operating room and remove 1 each from the patient's abdominal wall. Patient reported today that the electric- like pain on the left side disappeared however severe dull bilateral pain in the abdomen remains. She also complains on pain in the lower back. She stated that she had L5-S1 fusion. Last MRI was performed at [facility]. I requested her to bring me a disc to evaluate the lumbar spine. I will upload the disc in the our image collection. Meanwhile I offered the patient to go for either Nevro spinal cord stimulator or intrathecal drug delivery system pain pump. The patient is still thinks about those options. She needs to get me psychological evaluation from her psychologist in the order to proceed for the trials. Nevro brochure was given today to the patient. Prior: Severe intractable pain in the left side of the abdomen. pain started on 06/29/2024 when she had simultaneous surgery on her lower back and in her abdomen. She received L5-S1 posterior fusion by Dr. Valle, and after that she was turned over and Dr. Beaver performed ventral hernia repair. The patient had history of multiple surgeries on her colon in the past related to diverticulosis and diverticulitis. She was admitted to [facility] in July and she was examined by general surgery, there were no indications of acute intra- abdominal process. The report of the CT scan dictated as below. She also had an MRI of the lumbar spine report of this MRI is also dictated as below. None of those images would explain left lower quadrant pain is patient in is compla ining today. She has an appointment with Dr. Beaver this coming Thursday to evaluate her condition and possibly establish the source of Her past surgical history is very extensive. She had 7 abdominal hernia repairs she has a history of total knee replacement on the right. She had history of colon resection and left oophorectomy. History of colostomy and colostomy reversal. She had surgery on her elbow and L5-S1 posterior fusion. She stopped smoking cigarettes in December of 2022. She denies drinking alcohol. She drinks cup of coffee a day. She takes cannabis every day for pain. [facility] Medical History (Updated 01/02/25 @ 10:47 by Guilherme Rodriguez MD) History of marijuana use Arthritis Diverticulitis Stress incontinence Anxiety Depression Vitamin B12 deficiency Elevated cholesterol Anemia Sacroiliitis Sleep apnea Arthritis of knee, left History of abdominal hernia Dyslipidemia Bipolar 2 disorder Surgical History (Updated 12/12/24 @ 11:27 by Todd Rice [facility] History of incisional hernia repair History of lumbar fusion H/O colonoscopy History of partial hypophysectomy H/O hernia repair History of colostomy reversal History of elbow surgery History of left oophorectomy History of partial surgical removal of colon History of total right knee replacement Family History Father Hypertension Mother Pre-diabetes Hypertension Sister Cervical cancer Social History Household Members: Family Household Members Other:: sister Housing: Apartment Housing Other:: third floor Are you a primary respiratory care faculty to a significant other at home: No Do you presently have visiting nurse or other home services: Yes Alcohol intake: current Alcohol intake frequency: does not drink Patient Tobacco Use Status: Former Tobacco user Tobacco use type: Smokeless Tobacco Cigarettes Per Day: 4 Years Smoked: 20 years e-Cigarette/Vaping Use: Never Used Second Hand Smoke Exposure: No Substance Use Type: Marijuana service: No Current occupational status: disabled Cognitive needs: No Hearing needs: No Vision needs: No Review of Systems Const All systems reviewed & are unremarkable except as noted in HPI and below ENT Reports Normal hearing present Neuro Reports Normal hearing present, Denies Abnormal speech present and Denies Sensory deficit (Neuro) Physical Exam Vital Signs: Last Vital Signs Pulse 86 01/02/25 10:10 BP 175/106 H 01/02/25 10:10 Pulse Ox 95 01/02/25 10:10 Oxygen Delivery Method Room Air 01/02/25 10:10 BMI result Body Mass Index 41.2 Const General: alert, awake, Physically active and acute distress severe Nutritional Appearance: obese centrally obese Orientation/consciousness: patient oriented x3 Limitations: physical limitations and ambulation with cane Eyes General: appearance normal, both eyes and all related structures Pupils: Equal, round and reactive pupils present EOM: EOMs intact bilaterally Neck Neck: Yes full ROM Chest Chest palpation & inspection: normal inspection of the chest Resp Effort & Inspection: normal respiratory effort, able to speak in complete sentences, normal respiratory pattern, no audible wheezes and no cough Cardio Jugular venous distension: no JVD GI Other: On inspection there is a scar on anterior surface of the abdomen approximately 15 cm long. The scar is very well healed there is no redness no swelling no pathological discharge. There is severe tenderness on palpation in right lower quadrant. There is no rebound, there is no rigidity, coughing and sneezing aggravate her pain severely. Reports severe constipations. Reports incontinence with urine. Back/Spine/Pelvis Other: On inspection there are 2 scars in the projection of the most lower portion of the lumbar area the scars very well-healed there is also 1 scar below the right scar on the right which probably is from sacroiliac joint fusion from PSIS. Neuro General: patient oriented x3 and gait normal Cranial nerves: Yes CN's II-XII intact bilaterally, Yes Equal, round and reactive pupils present, Yes Normal hearing present and Yes Ability to bilaterally elevate shoulders present Speech: No Abnormal speech present Gait exam (Neuro): Normal gait present Motor exam (neuro): 5/5 motor strength present throughout Sensory Exam: No Sensory deficit (Neuro) Extrem General: No pedal edema Psych Speech and movement: Normal speech and movement present Affect: normal affect Attitude: cooperative Thought process: Normal thought process present Thought content: Normal thought content present Insight: Good insight present (Psych) Judgement: Good judgement present (Psych) Results Reviewed Results Reviewed: Lumbar spine MRI 09/02/2024. FINDINGS: Artifact from posterior spinal fixation hardware and intervertebral disc spacer at L5-S1 limits evaluation of the lesions. Normal alignment of the anterior and posterior elements. Vertebral body heights are maintained. Marrow signal is benign. Conus terminates at the superior endplate of L1 and is otherwise unremarkable. No abnormal enhancement. Mild edema within the posterior paraspinal soft tissues with a organizing fluid collection or abnormal enhancement identified. Otherwise the visualized paraspinal soft tissues are unremarkable. L5-S1: Intervertebral disc spacer and pedicle screws at this level limits evaluation. L4-L5: Desiccation of the disc. Broad-based posterior disc bulge. Annular fissure present. Disc bulge abuts the exiting L4 nerve roots bilaterally and traversing L5 nerve roots bilaterally. Mild bilateral neural foraminal narrowing. Moderate spinal canal stenosis at this level, mildly worsened from prior imaging. L3-L4: Desiccation of the disc. Broad-based posterior disc bulge. Annular fissure present. Moderate spinal canal stenosis. Mild right neural foraminal narrowing. L2-L3: Desiccation of the disc. Broad-based posterior disc bulge. Annular fissure present. Mild spinal canal stenosis at this level. No significant neural foraminal narrowing. L1-L2: Intervertebral disc is normal in height. No significant disc bulge or central canal stenosis. IMPRESSION: 1. No evidence of acute injury to the lumbar spine. No abnormal enhancement. 2. Interval posterior fixation of the L5-S1 level without evidence of hardware complication within limits of study. 3. Moderate spinal canal stenosis at L4-5 and L3-4. Mild spinal canal stenosis at L2-3. This appears worsened from prior imaging at L4-5. 4. Posterior disc bulge at L4-5 abuts the exiting L4 nerve roots and traversing L5 nerve roots bilaterally, worsened from prior imaging. This document has been electronically signed by: Napoleon Harley MD on 09/02/2024 14:59:52 CT ABDOMEN AND PELVIS WITH CONTRAST CLINICAL INFORMATION: Abdominal pain. Status post hernia repair. Status post lumbar fusion. COMPARISON: CT dated April 15, 2024 and April 09, 2015. TECHNIQUE: Multidetector volumetric images were obtained from the superior aspect of the liver through the pubic symphysis following administration 85 mL of Omnipaque 350 intravenous contrast. Sagittal and coronal reformatted images were obtained on the technologist's workstation. FINDINGS: LUNG BASES: No acute airspace disease or gross pulmonary nodules. LIVER, GALLBLADDER, AND BILIARY TREE: Liver measures 15 cm. There are less than 2 cm hypodensities in the anterior in the dome of the left hepatic lobe. The main portal veins, hepatic veins and intrahepatic portion of the IVC are patent. No pericholecystic fluid collection or gallbladder wall thickening. No intrahepatic or extrahepatic biliary ductal dilatation. PANCREAS: No focal mass. No peripancreatic fluid collection. No main pancreatic ductal dilatation. SPLEEN: 9 cm. No focal mass. ADRENAL GLANDS: No nodular lesions. KIDNEYS AND URETERS: No hydronephrosis. No renal mass. Normal enhancement pattern of the renal parenchyma. BLADDER: Fluid-filled. GASTROINTESTINAL TRACT: Abundant stool within the large intestine. Sutures at the sigmoid colon. No intestinal obstruction pattern. No ascites. No pneumoperitoneum. No pneumatosis intestinalis. Appendix is normal. ABDOMINAL WALL: Status post mesh procedure placement in the periumbilical and suprapubic. Edema pattern in the the fat planes of the lower abdomen and pelvis wall. LYMPH NODES: Nonspecific prominent lymph nodes in the retroperitoneum and mesenteric. VASCULAR: No aneurysm or dissection abdominal aorta. Mixed plaques throughout the distal abdominal aorta and iliac arteries. PELVIC VISCERA: Radiopaque T-shaped contraceptive device in the uterus. No gross masses in the adnexa. OSSEOUS STRUCTURES: Status post posterior lumbar fusion L5-S1 with transpedicular screws. Status post intervertebral disc spacer at L5-S1. Multilevel thoracolumbar spondylosis. No acute fracture. Subtle grade 1 retrolisthesis L2-3, L3-4 and L4-5. IMPRESSION: Abundant stool without intestinal obstruction pattern. Edema pattern in the deep fat planes of the mid lower abdominal wall without gross fluid collections. Assessment & Plan Assessment & Plan (1) Myofascial pain syndrome: Code(s): M79.18 - Myalgia, other site Category: Medical (2) Intractable abdominal pain: Code(s): R10.9 - Unspecified abdominal pain Category: Medical (3) Edema of abdominal wall: Code(s): R60.0 - Localized edema Category: Medical (4) Incisional pain: Code(s): L76.82 - Other postprocedural complications of skin and subcutaneous tissue Category: Medical (5) Constipation: Code(s): K59.00 - Constipation, unspecified Category: Medical (6) S/P spinal fusion: Code(s): Z98.1 - Arthrodesis status Category: Surgical (7) Urinary incontinence: Code(s): R32 - Unspecified urinary incontinence Category: Medical (8) Postlaminectomy syndrome: Code(s): M96.1 - Postlaminectomy syndrome, not elsewhere classified Category: Medical Plan Nubia is back in my office after Dr. Beaver removed the stitch from her abdominal wall and that terminated electric shock-like pain in her abdomen. However she reports today continuation of the dull and nagging bilateral abdominal pain still remaining after the procedure. She also stated that he has had the L5-S1 fusion and SI joint fusion in the past. She reports severe postlaminectomy syndrome pain as well. Prolonged and detailed discussion about spinal cord stimulator and intrathecal pain pump were held today. Patient had multiple questions. I explained her at my best ability of the details of SCS and I DDD. I told her that if she will decide to come back for neuromodulation she needs to bring me psychological evaluation from her psychologist/psychiatrist. Patient Instructions: I here by testify that I spent 35 minutes in conversation with this patient as well as planning her care and organizing this note. Coding Level of Care Code Est Pt Level 4 (70205) Diagnoses Myofascial pain syndrome M79.18 Intractable abdominal pain R10.9 Edema of abdominal wall R60.0 Incisional pain L76.82 Constipation K59.00 S/P spinal fusion Z98.1 Urinary incontinence R32 Postlaminectomy syndrome M96.1
--- OUTSIDE RECORDS SUMMARY | 2025-01-02 11:22 | XMS_ITS ---
Author Organization [facility] Address [address] [address] Care Team Providers Care Cigar Making Machine Supervisor Name Role Phone JASPREET COWAN M.D Primary Care Provider LUPE Hobbs [phone] REASON FOR VISIT RX REFILL Medications Medication SIG (Take, Route, Frequency, Duration) Notes Start Date End Date Status Norethindrone Acetate 5 MG TAKE TWO TABL ETS BY MOUTH ONCE DAILY Orally Once a day for 30 days Active Encounters Encounter Location Date Provider Diagnosis [facility] [address] [address] 03/29/2024 LUPE MONROE Plan Of Treatment Medication Medication Name Sig Start Date Stop Date Notes Norethindrone Acetate 5 MG TAKE TWO TABL ETS BY MOUTH ONCE DAILY Orally Once a day for 30 days Next Appt Details Provider Name:LUPE Soler, 05/08/2025 10:30:00 AM, [address] [place] [address], [place], [address], Progress Notes * ADEOLAVIOLETANicolásJO ANNDOB:[birth year] (43 yo F)Acc No.[id number]:03/29/2024 Patient:?JO ANN LEDESMA :1980???Age:43 Y???Sex:Female [address], [place], [address] * Refills? Refill Norethindrone Acetate Tablet, 5 MG, Orally, 60, TAKE TWO TABLETS BY MOUTH ONCE DAILY, Once a day, 30 days, Refills=1 * true * Date:? Generated for Zaki woo/Davey/Mandi on:?01/02/2025 11:22 AM EDT
--- OUTSIDE RECORDS SUMMARY | 2025-01-02 11:22 | XMS_ITS | Patient Health Record ---
Author Organization [employer] [facility] Address [address] [place] [address] Care Team Providers Care Channel Opener Name Role Phone JASPREET COWAN M.D Primary Care Provider LUPE Hobbs Unavailable [phone] Allergies Allergen (clinical drug ingredient) Drug/Non Drug [...] 30 day(s) 200 Mg QD Active Nystatin 459155 UNIT/GM 1 application Externally Twice a day [...] Notes Problem Excessive and freque nt menstruation (030371813) Excessive and frequent menstruation with regular cycle (N92.0) Active confirmed Problem Dysmenorrhea (887936146) Dysmenorrhea, unspecified (N94.6) Active confirmed Problem Anemia due to chroni c blood loss (disorder) (499445094) 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 Problem Bipolar II disorder (15922115) Bipolar II disorder (F31.81) Active confirmed Problem Endometriosis (clinical) (087258555) Other endometriosis (N80.8) Active confirmed Problem Abnormal uterine bleeding (35871187283579) Abnormal uterine and vaginal bleeding, unspecified (N93.9) Active confirmed Problem Intrauterine contraceptive device in situ (finding) (972845614) Presence of (intrauterine) contraceptive device (Z97.5) Active confirmed Problem Endometriosis (805966277) Endometriosis, unspecified (N80.9) Active confirmed Problem Dysmenorrhea (617771711) Dysmenorrhea, unspecified (N94.6) Active confirmed Problem SI - Stress incontinence (89953149) Stress incontinence (female) (male) (N39.3) Active confirmed Problem Pure hypercholesterolemia (164528116) Pure hypercholestero lemia, unspecified (E78.00) Active confirmed Vital Signs Temperature 97.1 degrees Fahrenheit 05/03/2024 Blood pressure diastolic 90 mm Hg 05/03/2024 Height 67 in 05/03/2024 Blood pressure systolic 120 mm Hg 05/03/2024 Weight 245 lbs 05/03/2024 BMI 38.37 kg/m2 05/03/2024 Encounters Encounter Location Date Provider Diagnosis [address] [place] [address] 05/03/2024 LUPE MONROE Encounter for gynecological examination (general) (routine) without abnormal findings Z01.419 ; Encounter for screening mammogram for malignant neoplasm of breast Z12.31 ; Presence of (intrauterine) contraceptive device Z97.5 ; Unspecified lump in the left breast, lower inner quadrant N63.24 ; Other endometriosis N80.8 and Other sites of candidiasis B37.89 [facility] [address] [place] [address] 01/20/2024 [facility]E [facility] [address] [place] [address] 03/29/2024 LUPE MONROE Assessments Encounter Date Diagnosis [...] Advised to bring this up with her medicine assistant to see if they have a different [...] Provider Name:LUPERuss Soler, 05/08/2025 10:30:00 AM, [address], [place], [address], Insurance Providers Payer Name Payer Address Payer Phone Subscriber Number Group Number Insured Name Patient Relationship to Insured Coverage Start Date Coverage End Date [facility] [address] [place] [address] [id number] LOY LEDESMAANDA Self - patient is the [...]
--- OUTSIDE RECORDS SUMMARY | 2025-01-02 11:23 | XMS_ITS | Clinical Summary ---
Author Organization [facility] Address [address] [place] [address] Phone Care Team Providers Care New Grad Rn Name Role Phone Unavailable Primary Care Provider [...] noon and 1,000 mg in the evening. 02/07/2024 Active atorvastatin (LIPITOR) 20 MG tablet 01/04/2024 Active cyanocobalamin (VITAMIN B-12) 1000 MCG/ML injection 01/27/2024 Active cyclobenzaprine (FLEXERIL) 5 MG tablet Take 5 mg by mouth 10/14/2023 Active clonazePAM (KlonoPIN) 1 MG tablet 06/02/2023 Active escitalopram (LEXAPRO) 20 MG tablet 11/02/2023 Active Docusate Sodium (DSS) 100 MG capsule Take 100 mg by mouth 12/13/2014 Active folic acid (FOLVITE) 1 MG tablet Take 1 mg by mouth 12/14/2021 Active traZODone (DESYREL) 300 MG tablet Take 200 mg by mouth in the morning. Active LORazepam (Ativan) 1 MG tablet Take 1 mg by mouth 04/16/2023 Active norethindrone (AYGESTIN) 5 MG tablet 1 (one) time each day 06/15/2023 Active nystatin (MYCOSTATIN) powder 05/03/2024 Active prochlorperazin e (COMPAZINE) 5 MG tablet 06/23/2023 Active scopolamine (TRANSDERM-SCOP ) 1 MG/3DAYS patch 72 hour 06/17/2023 Activ e senna (SENOKOT) 8.6 MG tablet Take 8.6 mg by mouth 12/13/2014 Active topiramate (TOPAMAX) 100 MG tablet 12/14/2021 Active Elastic Bandages & Supports (Abdominal Binder/Elastic 2XL) misc 1 Device 1 (one) time if needed (while upright) for up to 1 dose 1 each 09/12/2024 Active Elastic Bandages & Supports (Abdominal Binder/Elastic 2XL) misc 1 Implant 1 (one) time each day 1 each 09/14/2024 Active Active Problems Problem Noted Date Diagnosed Date [...] Office Visit [facility] [address] [place] [address] Luis Manuel Beaver MD Ventral hernia w/o gangrene (Primary Dx) 10/10/2024 Telephone [facility] [address] [place] [address] Gabrielle Villavicencio from Last 3 Months Social History Tobacco [...] - 19+ 3-dose series) 1997 Influenza Vaccine (Season Ended) 2025 Pneumococcal Vaccine: Peds ( 0 to 5 Years) and At-Risk Patients (6 to 49 Years) Aged Out No longer eligible b ased on patient's age to complete this topic Insurance [facility] Care Dual SNP ([id number]) JEAN CHOE [id number]
--- OUTSIDE RECORDS SUMMARY | 2025-01-02 11:23 | XMS_ITS | Clinical Summary ---
Author Organization [facility] Address [address] [place] [address] Care Team Providers Care Management Professional Name Role Phone Todd Rice MD Primary Care Provider Allergies Active Allergy Reactions Criticality Noted Date Comments Aloe Hives,Itching,Swelling Medium 07/01/2023 Gabapentin Other (See Comments) 07/01/2023 mucsle spasms Metoclopramide Other (See Comments) Low 04/16/2023 Muscle spasms Pregabalin Other (See Comments) 07/01/2023 muscle spasms Medications atorvastatin (LIPITOR) 20 MG tablet 4 Active cyanocobalamin (VITAMIN B-12) 1000 MCG/ML injection 4 Active cycloSPORINE (RESTASIS) 0.05 % ophthalmic emulsion 4 Active escitalopram (LEXAPRO) 20 MG tablet 4 Active methocarbamol (ROBAXIN) 750 MG tablet 4 Active norethindrone (AYGESTIN) 5 MG tablet 4 Active oxyCODONE (ROXICODONE) 5 MG immediate release tablet 4 Active oxyCODONE-aceta minophen (PERCOCET) 5-325 mg per tablet 4 Active proCHLORPERAZIN E (COMPAZINE) 5 MG tablet 4 Active scopolamine (TRANSDERM-SCOP ) patch 4 Active topiramate (TOPAMAX) 100 MG tablet 4 Active acetaminophen (TYLENOL) 500 MG tablet Take 2 tablets (1,000 mg total) by mouth every 8 (eight) hours around the clock. 30 tablet 4 Active methocarbamol (ROBAXIN) 750 MG tablet Take 1 tablet (750 mg total) by mouth 4 times daily (every 6 hours) as needed for muscle spasms. 20 tablet 4 Active predniSONE (DELTASONE) 10 MG tablet 6 tabs daily x 2 days, 5 tabs daily x 2 days, 4 tabs daily x 2 days, 3 tabs daily x 2 days, 2 tabs daily x 2 days, 1 tab daily x 2 days Do not start before February 08, 2024. 42 tablet 4 Active oxyCODONE (ROXICODONE) 5 MG immediate release tablet Take 1 tablet (5 mg total) by mouth 4 times daily (every 6 hours) as needed for severe pain. Max Daily Amount: 20 mg 10 tablet 4 Active naloxone (NARCAN) 4 mg/0.1 mL Liquid nasal spray device [place] 4 mg (1 nasal spray) as a single dose; may repeat every 2 to 3 minutes in alt nostrils until medical assistance is available. 0.2 mL 4 Active lidocaine (LIDODERM) 5 % patch Place 3 patches on the skin daily. Apply patch and leave on for 12 hours then remove. Patch may remain on skin for 12 hours per day. 30 patch 4 Active Social History Tobacco Use Types Packs/Day Years Used Date Smoking Tobacco: Every Day E-Cigarettes Smokeless Tobacco: Never Comments:Former cigarette sm oker-quit 2022 Alcohol Use Standard Drinks/Week Comments Not Currently 0 (1 standard drink = 0.6 oz pur e alcohol) rare Comments No Sex and Gender Information Value Date Recorded Sex Assigned at Female 02/07/2024 2:24 PM EDT Legal Sex Female 2:01 PM EDT Gender Identity Choose not to [...] 2023 Influenza Vaccine 03/31/2024 10/01/2021 COVID-19 Vaccine ( - 2023-2 5 season) 2024 08/13/2022, 09/12/2021, 01/02/2021, Additional history exists Insurance MISC MGD MEDICARE OUT OF NETWORK Care Teams Management Professional Relationship Specialty Start Date End Date Todd Rice MD [address] [place] [address] PCP - General Family Medicine 02/07/24
--- OUTSIDE RECORDS SUMMARY | 2025-01-02 11:23 | XMS_ITS | Data Portability ---
Author Organization [employer] Address [address] [place] [address] Care Team Providers Care Restorative Rehab Aide Name Role Phone [facility] Referring Provider Assessment No assessment recorded. Plan of Treatment [...] SNOMED-CT Code Diagnosis ICD10 Code Diagnosis Note [id number] Albert Mariscal MD [address] [address] 02/21/2023 11:40:33 02/23/2023 09:59:30 Vitamin B12 deficiency (non anemic) 29576408 E53.8 Dentist gave B12 injection with no issues. Vitals stable. Health Concerns Section Related Observation LastModified by Organization Detai ls LastModified Time None Recorded Concern Status LastModified by Organization Details LastModified Time None Recorded Advance Directives Directive None Recorded Payers Encounter Date Sequence Insurance Name Policy Number Policy Casas Covered Member ID Casas Member ID Guarantor Name 02/21/2023 1 [facility] - DOS ON OR AFTER 2022 - DUAL ELIGIBLE - [employer] OPTIONS AND ONE CARE (MEDICARE REPLACEMENT/ADV ANTAGE - HMO) Nubia Bergeron [id number] Nubia Bergeron Notes Date Note Type Note [...] ................. ................. ................. ................. ................. ................. ..... Dentist Note From Ned Breen: Assisted pt with vit b12 injection due to deficiency ................. ................. ................. ................. ................. ................. ................. ................. ..... Disposition: Fulfilled Albert Mariscal MD [address], [place], [address], [employer] NICOLE 02/21/2023 20:48:40 OBGyn Episode No OBEpisode recorded.
--- OUTSIDE RECORDS SUMMARY | 2025-01-02 11:23 | XMS_ITS ---
Author Organization [facility] Care Team Providers Care Retirement Assistant Name Role Phone Cori Almendarez Unavailable Unavailabl e Allergies and adverse reactions Code CodeSystem Substance Reaction Severity StartDate Concern Status Reglan Unknown 04/16/2023 active aloe vera Unknown 04/16/2023 active Care Team Name Role Address Phone Organization Dates Cori Almendarez PCP [facility] [place], [address], [place] States (Office): : [facility] 04/17/2023 - 05/06/2023 Goals Section Description Status Target Date Nubia will be free from dis comfort or adverse reactions related to anti-anxiety therapy through the review date. Active 05/06 Nubia will be free from dis comfort or adverse reactions related to antidepressant therapy through the review date. Active 01/2023 Nubia will be free from injury through the revi ew date. Active 05/06/2023 Nubia will be free of falls through the review date. Active 05/06/2023 Nubia will be free of minor injury through the review date. Active 05/06/2023 Nubia will display a decrea se in behaviors of inadequate pain control Active 05/06/2023 Nubia will have improved mo od state happier, calmer appearance, no s/sx of depression, anxiety or sadness through the review date. Active 05/06/2023 Nubia will have no indicati ons of psychosocial well being problem by/through review date. Active 05/06/2023 Nubia will improve current level of function through the review date. Active 05/06/2023 Nubia will maintain adequat e nutritional status as evidenced by: - Weight 217# +/- 5#; senior living gradual weight loss as able/desired 0.5-2# weekly with goal BMI <30. Active 05/06/2023 Nubia will maintain or deve lop clean and intact skin by the review date. Active 05/06/2023 Nubia will not have an inte rruption in normal activities due to pain through the review date. Active 05/06/2023 Nubia will not have discomf ort related to side effects of analgesia through the review date. Active 05/06/2023 Nubia will not sustain serious injury through t he review date. Active 05/06/2023 Nubia will show decreased s/s of anxiety throug h the review date. Active 05/06/2023 Nubia will verbalize adequa te relief of pain or ability to cope with incompletely relieved pain through the review date. Active 05/06/2023 Nubia will voice a level of comfort through the review date. Active 05/06/2023 Nubia's Advanced Directives will be honored thr ough next review Active 05/06/2023 Nubia's will have no complications through the review date. Active 05/06/2023 Anila will attend/participat e in activities of choice 3 to 5 times a week by next review date. Active 05/06/2023 The resident will (SPECIFY) verbalize/communicate an understanding of the discharge plan and describe the desired outcome by the review date. Active 05/06/2023 The resident will show decreased s/s of depressi on date. Active 05/06/2023 Immunizations Immunization Status Vaccine Details Vaccine Code CodeSystem Date Notes Influenza completed Influenza, high-dose, split virus, quadrivalent, injectable, preservative free 197 CVX created date: 04/17/2023 administere d date: 10/01/2021 TB 2 Step Mantoux Skin Test completed tuberculin skin test; unspecified formulation lotNumber: [id number] expiry: 05/01/2024 Mfg: Nanoradio Given 0.1 ml Right Forearm intradermally Step 1 of Multi-step with next step required 98 CVX created date: 05/04/2023 consent date: 05/04/2023 administere d date: 05/04/2023 SARS-COV-2 (COVID-19) completed SARS-COV-2 (COVID-19) vaccine, mRNA, spike protein, LNP, preservative free, 30 mcg/0.3mL dose Mfg: Pfizer Booster #1 Step 1 of Multi-step 208 CVX created date: 04/17/2023 administere d date: 09/12/2021 SARS-COV-2 (COVID-19) completed SARS-COV-2 (COVID-19) vaccine, mRNA, spike protein, LNP, preservative free, 30 mcg/0.3mL dose Mfg: Pfizer Step 2 of Multi-step with next step required 208 CVX created date: 04/17/2023 administere d date: 01/02/2021 SARS-COV-2 (COVID-19) completed SARS-COV-2 (COVID-19) vaccine, mRNA, spike protein, LNP, preservative free, 30 mcg/0.3mL dose Mfg: Pfizer Step 1 of Multi-step with next step required 208 CVX created date: 04/17/2023 administere d date: 12/12/2020 [id number] Pfizer Bivalent completed SARS-COV-2 (COVID-19) vaccine, mRNA, spike protein, LNP, bivalent, preservative free, 30 mcg/0.3 mL dose, sahara-sucrose formulation Mfg: Pfizer 300 CVX created date: 04/17/2023 administere d date: 08/13/2022 Mental Status Section Date Assessment Total Score Description 05/06/2023 BIMS 15 cognitively int act CAM 0 No delirium ind icated PHQ-9 02 minimal depress ion 04/22/2023 BIMS 15 cognitively int act CAM 0 No delirium ind icated PHQ-9 02 minimal depress ion Problems Problem # Description Date of onset Resolved Date Code CodeSystem Concern Status 1 COVID-19 04/23/[address] active 2 ANXIETY DISORDER, UNSPECIFIED 04/16/[address] active 3 DEPRESSION, UNSPECIFIED 04/16/[address] active 4 GASTRO-ESOPHAGEAL REFLUX DISEASE WITHOUT ESOPHAGITIS 04/16/[address] active 5 OTHER INTERVERTEBRAL DISC DEGENERATION, LUMBOSACRAL REGION 04/16/[address] active 6 OTHER LOW BACK PAIN 04/16/[address] active 7 PAIN IN LEG, UNSPECIFIED 04/16/[address] active 8 STRESS INCONTINENCE (FEMALE) (MALE) 04/16/[address] active Reason for Referral No Reasons for Referral Entered Social History Social History Observation Description Start Date End Date Code Code System Current Smoking Status Tobacco smoking consumption unknown 845873664 SNOMED CT Sex Assigned At Female 1980 44678-8 [facility] Vital Signs Code Code System Vitals Name Values and Units Timing Information 59262-9 [facility] Pain Level Value=3.0 05/06/2023 9279-1 [facility] Respiratory Rate Value=18.0 Units=/m in 05/05/2023 8462-4 [facility] Blood Pressure-Diastolic Value=62 Un its=mmHg 05/05/2023 8480-6 [facility] Blood Pressure-Systolic Wrcbd=579 Un its=mmHg 05/05/2023 8310-5 [facility] Body Temperature Value=97.6 Units=?? F 05/05/2023 8867-4 [facility] Heart rate Value=68.0 Units=/min 12/2022 97804-1 [facility] Weight Qmsbb=054.6 Units=Lbs 12/2022 8302-2 [facility] Height Value=67.0 Units=Inches 05/05/2023 37049-7 [facility] O2 % BldC Oximetry Value=98.0 Units= % 05/05/2023
--- OUTSIDE RECORDS SUMMARY | 2025-01-02 11:23 | XMS_ITS | Clinical Summary ---
Author Organization [employer] [facility] Address [address] [place] [address] Care Team Providers Care Glass Cutting Machine Feeder Name Role Phone Unavailable Primary Care Provider Unavailabl e Surgical History Surgery Date Site/Laterality Comments COLONOSCOPY 03/06/2009 PROCEDURE: [place] COLONOSCOPY FLX DX W/COLLJ SPEC WHEN PFRMD; [...] 1999 COVID-19 Vaccine (2023-2 5 season) 2024 Colorectal Cancer Screening: Colonoscopy 08/30/2024 Depression Screening 08/30/2024 HIV Screening 08/30/2024 Hepatitis C Screening 08/30/2024 Social Influencers of Health Screening 08/30/2024 Influenza Vaccine (Season Ended) 2025 HIB Vaccines Aged Out No longer eligi [...] age to complete this topic Meningococcal B Vaccine Aged Out No l onger eligible based on patient's age to complete [...]
== END 2025-01-02 10:54 | disposition home or self-care (01) ==
LOC: HO.PMC 10:06
PROVIDERS: PCP Nurse Practitioner Family; Visit Provider Anesthesiology
DX: M79.18 Myalgia, other site (principal); R10.9 Unspecified abdominal pain; R60.0 Localized edema; L76.82 Other postprocedural complications of skin and subcutaneous tissue; K59.00 Constipation, unspecified; Z98.1 Arthrodesis status; R32 Unspecified urinary incontinence; M96.1 Postlaminectomy syndrome, not elsewhere classified
CPT/HCPCS: 99214

== ENCOUNTER → 2025-01-02 10:05 | Outpatient (BNVA) | payer OTHER, SELFPAY | PROVIDERS: PCP Nurse Practitioner Family; Visit Provider Anesthesiology | DX: M79.18 Myalgia, other site (principal); M96.1 Postlaminectomy syndrome, not elsewhere classified; R10.9 Unspecified abdominal pain; R60.0 Localized edema; R32 Unspecified urinary incontinence; L76.82 Other postprocedural complications of skin and subcutaneous tissue; K59.00 Constipation, unspecified; Z98.1 Arthrodesis status | CPT/HCPCS: 99212 ==

== ENCOUNTER 2025-01-16 10:49 | Outpatient (AMB) | payer OTHER, SELFPAY ==
--- NOTE | 2025-01-16 11:00 | A.SPINEOV_ITS ---
Intake Visit Reasons: LBP and Difficulty walking Intake Note: Ms. Bergeron is here today c/o Low back pain and Difficulty walking. Disciplinary Hearing Officer Required: No Allergies aloe vera [ALOE VERA] Allergy (Intermediate, Verified 01/16/25 11:04) RASH metoclopramide [From REGLAN] Allergy (Intermediate, Verified 01/16/25 11:04) antsy allopurinol Allergy (Unknown, Verified 01/16/25 11:04) does not remember gabapentin Adverse Reaction (Intermediate, Verified 01/16/25 11:04) Muscle cramps pregabalin [From Lyrica] Adverse Reaction (Intermediate, Verified 01/16/25 11:04) Muscle cramps Assessment & Plan Assessment & Plan (1) S/P spinal fusion: Code(s): Z98.1 - Arthrodesis status Category: Surgical Plan HPI: Nubia is a pleasant 44 year old female who underwent L5-S1 ALIF with large hernia mesh repair on 06/29/24. She had persistent pain postoperatively and was sent for a lumbar MRI which showed slightly worsening central canal and bilateral foraminal stenosis at L4-5 postoperatively compared to previous imaging. She was recently evaluated by our colleagues in pain management which offered her Nevro spinal cord stimulator or intrathecal drug delivery system pain pump. She also underwent removal of abdominal hernia stitch by Dr. Bear recently to try and relieve some her continued abdominal pain. She also has been evaluated at [facility] ED and had what sounds like an even more recent MRI completed of the lumbar spine which I was not able to find in our EMR / ledezma (which often shows scans completed at [facility]). She did not bring an MRI disc to this visit. Today is clinic she reports that she is in severe pain. She points to around her tailbone when describing the pain. She states that the pain does not radiate down her lower extremities. She is concerned that her pain is now the worse it has been since surgery. She states that walking exacerbates her pain, and that rest helps to alleviate it. Exam: On exam she ambulates with the assistance of a cane. She is in obvious agony on examination. She is able to rise from a seated position with the assistance of a chair/cane. She is able to get up onto the examination table without much issue. She has 5/5 strength with bilateral dorsiflexion/plantar flexion. She exhibits quite a deal of pain attempting knee extension/flexion and iliopsoas testing. I would rate her strength in these areas is 4/5, slightly diminished on the right hand side with iliopsoas testing compared to the left. Her incision sites from L5-S1 ALIF surgery appear closed and well healed. Plan: It is clear that Nubia is suffering some some kind of severe persistent pain despite surgical attempts to resolve her pain. I attempted to empathize with her during this encounter and encourage her that something such as the interventions offered by our colleagues in pain management would likely provide her with much needed relief. She has had multiple postoperative lumbar MRIs, and a postoperative lumbar CT scan. She also has had imaging of her hip/pelvis. I had her obtain a set of dynamic lumbar spine x-rays during this visit just to evaluate for any obvious hardware complication, which I reviewed with her after they were complete. I do not see any issue with the surgical construct that may be contributing to her problem. I also do not believe that the L4-5 segment slightly worsening on postoperative MRI imaging would be causing the type of pain that she describes in clinic today. She seemed fairly adamant that we need to obtain some kind of subsequent imaging for her. I informed her that she would need to follow up with Dr. Valle to discuss this further, because I can not clinically justify more imaging at this time. I believe she would be best served simply following up with our colleagues in pain management. Daniel Valle MD,PhD [facility] Orders: Orders XR lumbar spine 4V min Today Z98.1 - Arthrodesis status Coding Level of Care Code Global (23000) Diagnoses S/P spinal fusion Z98.1
--- OUTSIDE RECORDS SUMMARY | 2025-01-16 11:27 | XMS_ITS | Clinical Summary ---
Author Organization [employer] [facility] Address [address] [place] [address] Care Team Providers Care Mathematics Instructor Name Role Phone Unavailable Primary Care Provider Unavailabl e Surgical History Surgery Date Site/Laterality Comments COLONOSCOPY 03/06/2009 PROCEDURE: [place] COLONOSCOPY FLX DX W/COLLJ SPEC WHEN PFRMD; [...]
--- OUTSIDE RECORDS SUMMARY | 2025-01-16 11:27 | XMS_ITS | Data Portability ---
Author Organization [employer] [employer] Address [address] [place] [address] Care Team Providers Care Building Construction Contractor Name Role Phone [facility] Referring Provider Assessment No [...] SNOMED-CT Code Diagnosis ICD10 Code Diagnosis Note [id number] Albert Mariscal MD [address] [address] 02/21/2023 11:40:33 02/23/2023 09:59:30 Vitamin B12 deficiency (non anemic) 77531993 E53.8 Electroplating Sales Representative gave B12 injection with no issues. Vitals stable. Health Concerns Section Related Observation LastModified by Organization Detai ls LastModified Time None Recorded Concern Status LastModified by Organization Details LastModified Time None Recorded Advance Directives Directive None Recorded Payers Insurance Date Sequence Insurance Name Policy Number Policy Casas Covered Member ID Casas Member ID Guarantor Name 05/25/2024 1 [facility] - DOS ON OR AFTER 2022 - DUAL ELIGIBLE - [facility] OPTIONS AND ONE CARE (MEDICARE REPLACEMENT/ADV ANTAGE - HMO) Nubia Bergeron [id number] Nubia Bergeron Notes Date Note Type Note [...] ................. ................. ................. ................. ................. ................. ..... Electroplating Sales Representative Note From Ned Breen: Assisted pt with vit b12 injection due to deficiency ................. ................. ................. ................. ................. ................. ................. ................. ..... Disposition: Fulfilled Albert Mariscal MD [address] [facility],[address], [place], [address], [employer] Personal Care DeviceNOREEN NICOLE 02/21/2023 20:48:40 OBGyn Episode No OBEpisode recorded.
--- OUTSIDE RECORDS SUMMARY | 2025-01-16 11:27 | XMS_ITS | Patient Health Record ---
Author Organization [employer] [facility] Address [address] [facility] [address] [place] [address] Care Team Providers Care Clinical Coder Name Role Phone JASPREET COWAN M.D Primary Care Provider LUPE Hobbs Unavailable [phone] Allergies Allergen (clinical drug ingredient) Drug/Non Drug [...] 30 day(s) 200 Mg QD Active Nystatin 793284 UNIT/GM 1 application Externally Twice a day [...] Notes Problem Excessive and freque nt menstruation (886912865) Excessive and frequent menstruation with regular cycle (N92.0) Active confirmed Problem Dysmenorrhea (817670455) Dysmenorrhea, unspecified (N94.6) Active confirmed Problem Anemia due to chroni c blood loss (disorder) (062302726) 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 Problem Bipolar II disorder (80169829) Bipolar II disorder (F31.81) Active confirmed Problem Endometriosis (clinical) (576393043) Other endometriosis (N80.8) Active confirmed Problem Abnormal uterine bleeding (81000131585497) Abnormal uterine and vaginal bleeding, unspecified (N93.9) Active confirmed Problem Intrauterine contraceptive device in situ (finding) (803082523) Presence of (intrauterine) contraceptive device (Z97.5) Active confirmed Problem Endometriosis (172448846) Endometriosis, unspecified (N80.9) Active confirmed Problem Dysmenorrhea (662550161) Dysmenorrhea, unspecified (N94.6) Active confirmed Problem SI - Stress incontinence (41615885) Stress incontinence (female) (male) (N39.3) Active confirmed Problem Pure hypercholesterolemia (097012183) Pure hypercholestero lemia, unspecified (E78.00) Active confirmed Vital Signs Temperature 97.1 degrees Fahrenheit 05/03/2024 Blood pressure diastolic 90 mm Hg 05/03/2024 Height 67 in 05/03/2024 Blood pressure systolic 120 mm Hg 05/03/2024 Weight 245 lbs 05/03/2024 BMI 38.37 kg/m2 05/03/2024 Encounters Encounter Location Date Provider Diagnosis [address] [place] [address] 05/03/2024 LUPE MONROE Encounter for gynecological examination (general) (routine) without abnormal findings Z01.419 ; Encounter for screening mammogram for malignant neoplasm of breast Z12.31 ; Presence of (intrauterine) contraceptive device Z97.5 ; Unspecified lump in the left breast, lower inner quadrant N63.24 ; Other endometriosis N80.8 and Other sites of candidiasis B37.89 [facility] [address] [place] [address] 01/20/2024 [facility] [address] [place] [address] 03/29/2024 LUPE MONROE Assessments Encounter Date Diagnosis [...] Advised to bring this up with her chemical worker to see if they have a different [...] Provider Name:LUPERuss Soler, 05/08/2025 10:30:00 AM, [address], [address], [place], [address], Insurance Providers Payer Name Payer Address Payer Phone Subscriber Number Group Number Insured Name Patient Relationship to Insured Coverage Start Date Coverage End Date [facility] [address] [place] [address] [id number] LOY LEDESMAANDA Self - patient is the [...]
--- OUTSIDE RECORDS SUMMARY | 2025-01-16 11:27 | XMS_ITS | Clinical Summary ---
Author Organization [facility] Address [address] [place] [address] Phone Care Team Providers Care Histotechnologist Supervisor Name Role Phone Unavailable Primary Care Provider [...] Visit [facility] [address] [place] [address] [place] [address] Luis Manuel Beaver MD Ventral hernia w/o gangrene (Primary Dx) from Last 3 Months Social History Tobacco [...] patient's age to complete this topic Insurance [facility] One Care Dual SNP ([id number])
--- OUTSIDE RECORDS SUMMARY | 2025-01-16 11:27 | XMS_ITS | Clinical Summary ---
Author Organization [facility] Address [address] [place] [address] Care Team Providers Care Sales Technician Home Theater Name Role Phone Todd Rice MD Primary [...] 4 mg/0.1 mL Liquid nasal spray device [place] 4 mg (1 nasal spray) as a [...] (Ages 21-65) 1999 Mammogram 2018 Colonoscopy 2023 COVID-19 Vaccine (5 - 2023-2 5 season) 2024 08/13/2022, 09/12/2021, 01/02/2021, Additional history exists Influenza Vaccine 03/31/2025 10/01/2021 Insurance MISC MGD MEDICARE OUT OF NETWORK Care Teams Sales Technician Home Theater Relationship Specialty Start Date End Date Todd Rice MD [address] [place] [address] PCP - General Family Medicine 02/07/24
== END 2025-01-16 12:06 | disposition home or self-care (01) ==
LOC: HO.HNS 10:50
PROVIDERS: PCP Nurse Practitioner Family; Visit Provider Physician Assistant
DX: Z98.1 Arthrodesis status (principal)
CPT/HCPCS: 99213

== ENCOUNTER 2025-01-16 10:49 | Outpatient (REF) | payer OTHER, SELFPAY ==
--- NOTE | ~2025-01-16 | XR_ITS ---
EXAMINATION: XR LUMBOSACRAL SPINE CLINICAL INFORMATION: Z98.1 - Arthrodesis status COMPARISON: None available. TECHNIQUE: 4 views of the lumbar spine, inclusive of flexion and extension views, were obtained. FINDINGS: There is a mild levoconvex scoliosis. There is a normal lumbar lordosis. There has been prior fusion of L5-S1 with posterior transpedicular screws, posterior connecting rods, and disc prosthesis with oblique endplate screws. Hardware appears intact, well seated, without periprosthetic lucency or fracture. There is normal facet alignment. There are mild degenerative facet changes spanning L4-S1. There is mild multilevel disc degeneration. There is a 2 mm retrolisthesis of L2 on L3 on the neutral view, which remains static in flexion and extension. There is no evidence of instability otherwise. There are early vascular calcifications in the soft tissues. An IUD is incidentally noted within the pelvis. XR/XR lumbar spine 4V min IMPRESSION: 1. Posterior fusion of L5-S1 without radiographic complication. 2. No evidence of instability on flexion and extension views. 3. Mild lumbar spondylosis, and mild levoconvex scoliosis. Electronically signed by: Tommy Galarza MD 01/16/2025 02:25 PM EDT
--- OUTSIDE RECORDS SUMMARY | 2025-01-16 12:07 | XMS_ITS | Clinical Summary ---
Author Organization [facility] Address [address] [place] [address] Phone Care Team Providers Care Fleet Mechanic Name Role Phone Unavailable Primary Care Provider [...] Visit [facility] [address] [place] [address] [place] [address] Luis Manuel Beaver MD Ventral hernia [...] patient's age to complete this topic Insurance [facility] One Care Dual SNP ([id number])
--- OUTSIDE RECORDS SUMMARY | 2025-01-16 12:07 | XMS_ITS | Clinical Summary ---
Author Organization [facility] Address [address] [place] [address] Care Team Providers Care E Commerce Developer Name Role Phone Todd Rice MD Primary [...] 4 mg/0.1 mL Liquid nasal spray device [place] 4 mg (1 nasal spray) as a [...] MGD MEDICARE OUT OF NETWORK Care Teams E Commerce Developer Relationship Specialty Start Date End Date Todd Rice MD [address] [address] PCP - General Family Medicine 02/07/24
--- OUTSIDE RECORDS SUMMARY | 2025-01-16 12:07 | XMS_ITS | Clinical Summary ---
Author Organization [employer] [facility] Address [address] [place] [address] Care Team Providers Care E Commerce Web Developer Name Role Phone Unavailable Primary Care Provider Unavailabl e Surgical History Surgery Date Site/Laterality Comments COLONOSCOPY 03/06/2009 PROCEDURE: ME COLONOSCOPY FLX DX W/COLLJ SPEC WHEN PFRMD; [...]
== END 2025-01-16 10:50 | disposition home or self-care (01) ==
LOC: HO.HOSX 10:49
PROVIDERS: PCP Nurse Practitioner Family; Visit Provider Physician Assistant
DX: Z98.1 Arthrodesis status (principal)
CPT/HCPCS: 72110; 99212

== ENCOUNTER → 2025-01-16 11:28 | Outpatient (BNV) | payer OTHER, SELFPAY | PROVIDERS: PCP Nurse Practitioner Family; Visit Provider Radiology Diagnostic Radiology | DX: M41.86 Other forms of scoliosis, lumbar region (principal) | CPT/HCPCS: 72110 ==

== ENCOUNTER 2025-01-25 14:15 | Outpatient (AMB) | payer OTHER, SELFPAY ==
--- NOTE | 2025-01-25 15:10 | A.SPINEOV_ITS ---
Intake Visit Reasons: LBP Intake Note: Ms. Bergeron is here today c/o low back pain. Acid Crane Operator Required: No Allergies aloe vera [ALOE VERA] Allergy (Intermediate, Verified 01/16/25 11:04) RASH metoclopramide [From REGLAN] Allergy (Intermediate, Verified 01/16/25 11:04) antsy allopurinol Allergy (Unknown, Verified 01/16/25 11:04) does not remember gabapentin Adverse Reaction (Intermediate, Verified 01/16/25 11:04) Muscle cramps pregabalin [From Lyrica] Adverse Reaction (Intermediate, Verified 01/16/25 11:04) Muscle cramps Assessment & Plan Assessment & Plan (1) Sacroiliitis: Code(s): M46.1 - Sacroiliitis, not elsewhere classified Category: Medical (2) Postlaminectomy syndrome: Code(s): M96.1 - Postlaminectomy syndrome, not elsewhere classified Category: Medical Plan Dear colleague, On 01/24/2025 I saw for follow-up Nubia Aldrich. She underwent an L5-S1 anterior lumbar fusion on 06/29/2024. She reports a reduction in back spasms and leg pain. However, she is still in severe agony. She can not sit for any length of time before she has to stand up. The pain is located bilaterally in the SI joint region and wraps around into her groin. She is currently seeing p kingston zavaleta and maybe candidate for a spinal cord stimulator. I reviewed CT of the lumbar spine MRI of the lumbar spine a regular x-rays and do not see any issues with the surgical construct or adjacent degenerative disc disease. The differential diagnosis is failed back syndrome versus sacroiliitis. She did have SI joint injections in the past and an attempt to perform a right SI joint fusion. I would like to have a left SI joint injection done before the decision is made for a spinal cord stimulator. I contacted Dr. Rodriguez with a request to perform a left SI joint injection. The patient will return to my clinic. I spent 20 minutes in his consult reviewing imaging and discussing plan of care. Jose Valle MD, PhD Spine Fellowship Trained Neurosurgeon Director, [facility] Orders: Referrals Pain Management Referral M46.1 - Sacroiliitis, not elsewhere classified, M96.1 - Postlaminectomy syndrome, not elsewhere classified Coding Level of Care Code Est Pt Level 3 (82991) Diagnoses Sacroiliitis M46.1 Postlaminectomy syndrome M96.1
--- OUTSIDE RECORDS SUMMARY | 2025-01-25 15:10 | XMS_ITS | Patient Health Record ---
Author Organization [employer] [facility] Address [address] [address] [place] [address] Care Team Providers Care Route Jumper Name Role Phone JASPREET COWAN M.D Primary Care Provider LUPE Hobbs Unavailable [phone] Allergies Allergen (clinical drug ingredient) Drug/Non Drug [...] 30 day(s) 200 Mg QD Active Nystatin 191451 UNIT/GM 1 application Externally Twice a day [...] Notes Problem Excessive and freque nt menstruation (972022037) Excessive and frequent menstruation with regular cycle (N92.0) Active confirmed Problem Dysmenorrhea (821670659) Dysmenorrhea, unspecified (N94.6) Active confirmed Problem Anemia due to chroni c blood loss (disorder) (412380046) 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 Problem Bipolar II disorder (77627138) Bipolar II disorder (F31.81) Active confirmed Problem Endometriosis (clinical) (611389883) Other endometriosis (N80.8) Active confirmed Problem Abnormal uterine bleeding (57650257436448) Abnormal uterine and vaginal bleeding, unspecified (N93.9) Active confirmed Problem Intrauterine contraceptive device in situ (finding) (022248851) Presence of (intrauterine) contraceptive device (Z97.5) Active confirmed Problem Endometriosis (690025757) Endometriosis, unspecified (N80.9) Active confirmed Problem Dysmenorrhea (186674792) Dysmenorrhea, unspecified (N94.6) Active confirmed Problem SI - Stress incontinence (12450095) Stress incontinence (female) (male) (N39.3) Active confirmed Problem Pure hypercholesterolemia (145754050) Pure hypercholestero lemia, unspecified (E78.00) Active confirmed Vital Signs Temperature 97.1 degrees Fahrenheit 05/03/2024 Blood pressure diastolic 90 mm Hg 05/03/2024 Height 67 in 05/03/2024 Blood pressure systolic 120 mm Hg 05/03/2024 Weight 245 lbs 05/03/2024 BMI 38.37 kg/m2 05/03/2024 Encounters Encounter Location Date Provider Diagnosis [address] [place] [address] 05/03/2024 LUPE MONROE Encounter for gynecological examination (general) (routine) without abnormal findings Z01.419 ; Encounter for screening mammogram for malignant neoplasm of breast Z12.31 ; Presence of (intrauterine) contraceptive device Z97.5 ; Unspecified lump in the left breast, lower inner quadrant N63.24 ; Other endometriosis N80.8 and Other sites of candidiasis B37.89 [facility] [address] [place] [address] 03/29/2024 LUPE MONROE Assessments Encounter Date Diagnosis [...] Advised to bring this up with her field case manager to see if they have a different recommendation Plan Of Treatment Pending Test Test Name Order Date Sonohysterogram 05/16/2021 Test, Urine 06/14/2021 Test, Urine 07/11/2021 Urinalysis 05/16/2021 ULTRASOUND: PELVIC W/TRANSVAGINAL 2020 Diagnostic Left Breast Mammo/US 05/03/20 24 MM Digital Screening Mammogram 3D 2021 MM Digital Screening Mammogram 3D 2022 MM Digital Screening Mammogram 3D 2023 Next Appt Details Provider Name:LUPE Solre, 05/08/2025 10:30:00 AM, [address], [address], [place], [address], Insurance Providers Payer Name Payer Address Payer Phone Subscriber Number Group Number Insured Name Patient Relationship to Insured Coverage Start Date Coverage End Date [facility] [address] [place] [address] [id number] JO ANN LEDESMA Self - patient is the insured Medications [...]
== END 2025-01-25 15:55 | disposition home or self-care (01) ==
LOC: HO.HNS 14:16
PROVIDERS: PCP Nurse Practitioner Family; Visit Provider Neurological Surgery
DX: M46.1 Sacroiliitis, not elsewhere classified (principal); M96.1 Postlaminectomy syndrome, not elsewhere classified
CPT/HCPCS: 99213

== ENCOUNTER → 2025-01-25 14:15 | Outpatient (BNVA) | payer OTHER, SELFPAY | PROVIDERS: PCP Nurse Practitioner Family; Visit Provider Neurological Surgery | DX: M46.1 Sacroiliitis, not elsewhere classified (principal); M96.1 Postlaminectomy syndrome, not elsewhere classified | CPT/HCPCS: 99212 ==

== ENCOUNTER 2025-03-08 08:32 | Outpatient (AMB) | payer OTHER, SELFPAY ==
--- OUTSIDE RECORDS SUMMARY | 2025-03-08 08:46 | XMS_ITS | Patient Health Record ---
Author Organization [employer] [facility] Address [address] [facility] [address] [place] [address] Care Team Providers Care Engineering Design Supervisor Name Role Phone JASPREET COWAN M.D Primary Care Provider LUPE Hobbs Unavailable [phone] Allergies Allergen (clinical drug ingredient) Drug/Non Drug Allergy documented on EMR Reaction Allergy Type Onset Date Status Aloe itching Drug Allergy Active metoclopramide Reglan agitation Drug Allergy Ac tive Reason For Referral No Information Medications Medication SIG (Take, Route, Frequency, Duration) Notes Start Date End Date Status B-12 Compliance Injection 1000 MCG/ML 1 ml Injection; Duration: 30 day(s) Active traZODone HCl 100 MG 1 tablet at bedtime Orally Once a day; Duration: 30 day(s) 200 Mg QD Active Nystatin 229364 UNIT/GM 1 application Externally Twice a day; Duration: 10 days 11/28/2021 Active Topamax 200 MG 1 tablet Orally Twice a day; Duration: 30 day(s) Active Norethindrone Acetate 5 MG TAKE TWO TABLETS BY MOUTH ONCE DAILY Orally Once a day; Duration: 90 days Active Scopolamine 1 MG/3DAYS Transdermal; Duration: 72 Active Mirena (52 MG) 20 MCG/24HR as directed Intrauterine inserted 07/11/21 Active Atorvastatin Calcium 20 MG 1 tablet Orally Once a day; Duration: 30 days Active Ativan 1 MG 1 [...] Notes Problem Excessive and freque nt menstruation (822980129) Excessive and frequent menstruation with regular cycle (N92.0) Active confirmed Problem Dysmenorrhea (391176534) Dysmenorrhea, unspecified (N94.6) Active confirmed Problem Anemia due to chroni c blood loss (disorder) (127358163) 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 Problem Bipolar II disorder (55421504) Bipolar II disorder (F31.81) Active confirmed Problem Endometriosis (clinical) (536546920) Other endometriosis (N80.8) Active confirmed Problem Abnormal uterine bleeding (85016575422258) Abnormal uterine and vaginal bleeding, unspecified (N93.9) Active confirmed Problem Intrauterine contraceptive device in situ (finding) (743093943) Presence of (intrauterine) contraceptive device (Z97.5) Active confirmed Problem Endometriosis (189608112) Endometriosis, unspecified (N80.9) Active confirmed Problem Dysmenorrhea (208211279) Dysmenorrhea, unspecified (N94.6) Active confirmed Problem SI - Stress incontinence (42018190) Stress incontinence (female) (male) (N39.3) Active confirmed Problem Pure hypercholesterolemia (968464789) Pure hypercholestero lemia, unspecified (E78.00) Active confirmed Vital Signs Temperature 97.1 degrees Fahrenheit 05/03/2024 Blood pressure diastolic 90 mm Hg 05/03/2024 Height 67 in 05/03/2024 Blood pressure systolic 120 mm Hg 05/03/2024 Weight 245 lbs 05/03/2024 BMI 38.37 kg/m2 05/03/2024 Encounters Encounter Location Date Provider Diagnosis [address] [place] [address] 05/03/2024 LUPE MONROE Encounter for gynecological examination (general) (routine) without abnormal findings Z01.419 ; Encounter for screening mammogram for malignant neoplasm of breast Z12.31 ; Presence of (intrauterine) contraceptive device Z97.5 ; Unspecified lump in the left breast, lower inner quadrant N63.24 ; Other endometriosis N80.8 and Other sites of candidiasis B37.89 Total [facility] [address] [place] [address] 03/29/2024 LUPE HARVEYS Assessments Encounter Date Diagnosis (ICD Code) Assessment [...] Advised to bring this up with her charm filter operator helper to see if they have a different [...] Provider Name:LUPERuss Soler, 05/08/2025 10:30:00 AM, [address], [address], [place], [address], Insurance Providers Payer Name Payer Address Payer Phone Subscriber Number Group Number Insured Name Patient Relationship to Insured Coverage Start Date Coverage End Date [facility] [address] [place] [address] [id number] JO ANN LEDESMA Self - patient is [...]
--- OUTSIDE RECORDS SUMMARY | 2025-03-08 08:46 | XMS_ITS | Clinical Summary ---
Author Organization [employer] [facility] Address [address] [place] [address] Care Team Providers Care Marketing Database Consultant Name Role Phone Unavailable Primary Care Provider [...] Influencers of Health Screening 08/30/2024 Influenza Vaccine (#1) 2025 HIB Vaccines Aged Out No longer [...]
--- OUTSIDE RECORDS SUMMARY | 2025-03-08 08:46 | XMS_ITS | Clinical Summary ---
Author Organization [facility] Address [address] [place] [address] Care Team Providers Care Warp Knitter Name Role Phone Todd Rice MD Primary [...] 4 mg/0.1 mL Liquid nasal spray device [place] 4 mg (1 nasal spray) as a [...] 76 02/07/2024 2:12 PM EDT Temperature 36.8 C (98.3 F) 02/07/2024 2:12 PM EDT Respiratory Rate 18 02/07/2024 2:12 PM EDT [...] MGD MEDICARE OUT OF NETWORK Care Teams Warp Knitter Relationship Specialty Start Date End Date Todd Rice MD [address] [place] [address] PCP - General Family Medicine 02/07/24
--- OUTSIDE RECORDS SUMMARY | 2025-03-08 08:46 | XMS_ITS | Data Portability ---
Author Organization [facility] Address [address] [place] [address] Care Team Providers Care Communications Station Manager Name Role Phone [facility] Referring Provider [phone] Assessment No assessment recorded. Plan of Treatment [...] temperature Heart rate Body temperature Oxygen saturation Provider Name and Address Organization Details Last Updated DateTime 3 98.4 [degF] 85 /min 16 /min 97 % 97 % 16 /min 97 % 97 % 98.4 [degF] 85 /min 98.4 [degF] 97 % Not Available Clink 3 11:56:43 Date Recorded Oxygen saturation in Arterial blood by Pulse oximetry Heart rate Respiratory rate Systolic And Diastolic Systolic And Diastolic Systolic And Diastolic Provider Name and Address Organization Details Last Updated DateTime 3 97 % 85 /min 16 /min 145/83 mm[Hg] 145/83 mm[Hg] 145/83 mm[Hg] Not Available Clink 3 11:56:43 Social History None recorded. Functional Status None recorded. Mental Status None recorded. Family History Nothing Reported. Medical History No medical history recorded. Gynecological HistoryNo gynecological history recorded. Obstetrics History GPAL:G 0 P 0 0 0 0 Past Encounters Encounter ID Performer Location Encounter Start Date Encounter Closed Date Diagnosis/Indication Diagnosis SNOMED-CT Code Diagnosis ICD10 Code Diagnosis Note [id number] Albert Mariscal MD [address] [address] 02/21/2023 11:40:33 02/23/2023 09:59:30 Vitamin B12 deficiency (non anemic) 78588106 E53.8 Rn Neonatal gave B12 injection with no issues. Vitals stable. Health Concerns Section Related Observation LastModified by Organization Detai ls LastModified Time None Recorded Concern Status LastModified by Organization Details LastModified Time None Recorded Advance Directives Directive None Recorded Payers Insurance Date Sequence Insurance Name Policy Number Policy Casas Covered Member ID Casas Member ID Guarantor Name 05/25/2024 1 [facility] - DOS ON OR AFTER 2022 - DUAL ELIGIBLE - CUSTODIAL OPTIONS AND ONE CARE (MEDICARE REPLACEMENT/ADV ANTAGE - HMO) Nubia Bergeron [id number] Nubia Bergeron Notes Date Note Type Note [...] ................. ................. ................. ................. ................. ................. ..... Rn Neonatal Note From Ned Breen: Assisted pt with vit b12 injection due to deficiency ................. ................. ................. ................. ................. ................. ................. ................. ..... Disposition: Fulfilled Albert Mariscal MD [address] [place] [address],[address], [place], [address], [facility] 02/21/2023 20:48:40 OBGyn Episode No OBEpisode recorded.
--- OUTSIDE RECORDS SUMMARY | 2025-03-08 08:46 | XMS_ITS | Clinical Summary ---
Author Organization [facility] Address [address] [place] [address] Phone Care Team Providers Care Reeling Machine Setup Operator Name Role Phone Unavailable Primary Care Provider [...] unspecified 04/16/2023 Stress incontinence (female) (male) 04/16/2023 Social History Tobacco Use Types Packs/Day Years [...] 73 05/25/2024 3:12 PM EDT Temperature 36.2 C (97.2 F) 05/25/2024 3:12 PM EDT Respiratory Rate - - Oxygen Saturation 97% [...] 19+ 3-dose series) 1997 Influenza Vaccine (#1) 2025 Pneumococcal Vaccine: Peds ( 0 to 5 Years) and At-Risk Patients (6 to 49 Years) Aged Out No longer eligible b ased on patient's age to complete this topic Insurance * Guarantor: Nubia Bergeron Account Type Relation to Patient Date of Phone Billing Address Personal/Family Self [address] Care Dual SNP ([id number]) JEAN CHOE [id number]
[2025-03-08 08:56] VITALS: BP 156/94; PULSE 86; RESP 18; O2SAT 98; BMI 41.0
--- NOTE | 2025-03-08 08:56 | MHC.OFFVIS ---
Vital Signs 03/08/25 08:56 Height 5 ft 7 in Weight 262 lb BMI 41.0 BP 156/94 H Blood Pressure Location Lt brachial Position Sitting Respiration 18 Pulse 86 Pulse Source Pulse Oximeter Pulse Oximetry (%) 98 Oxygen Delivery Method Room Air Intake Visit Reasons: Denial Discussion Watch Adjuster Required: No Allergies aloe vera (ALOE VERA) Allergy (Intermediate, Verified 03/08/25 08:56) RASH metoclopramide (From REGLAN) Allergy (Intermediate, Verified 03/08/25 08:56) antsy allopurinol Allergy (Unknown, Verified 03/08/25 08:56) does not remember gabapentin Adverse Reaction (Intermediate, Verified 03/08/25 08:56) Muscle cramps pregabalin (From Lyrica) Adverse Reaction (Intermediate, Verified 03/08/25 08:56) Muscle cramps HPI Comments Details: Nubia is in my office today for the follow-up after Dr. Valle consult. Dr. Valle recommended me to perform left sacroiliac joint injection. However the patient's insurance company denied the procedure. She was invited today for physical examination and documentation of the pathology to schedule her for the left SI joint injection. However the attention was attracted today that the patient has significant left hip joint pathology. See physical exam as below. I will schedule this patient for left therapeutic hip joint injection. After that I will look into left sacroiliitis issue it appears to be that combination of the sacroiliitis on the left and left hip joint arthritis exists in this patient. Prior: Severe intractable pain in the left side of the abdomen. pain started on 06/29/2024 when she had simultaneous surgery on her lower back and in her abdomen. She received L5-S1 posterior fusion by Dr. Valle, and after that she was turned over and Dr. Beaver performed ventral hernia repair. The patient had history of multiple surgeries on her colon in the past related to diverticulosis and diverticulitis. She was admitted to [facility] in July and she was examined by general surgery, there were no indications of acute intra-abdominal process. The report of the CT scan dictated as below. She also had an MRI of the lumbar spine report of this MRI is also dictated as below. None of those images would explain left lower quadrant pain is patient in is complaining today. She has an appointment with Dr. Beaver this coming Thursday to evaluate her condition and possibly establish the source of Her past surgical history is very extensive. She had 7 abdominal hernia repairs she has a history of total knee replacement on the right. She had history of colon resection and left oophorectomy. History of colostomy and colostomy reversal. She had surgery on her elbow and L5-S1 posterior fusion. She stopped smoking cigarettes in December of 2022. She denies drinking alcohol. She drinks cup of coffee a day. She takes cannabis every day for pain. [facility] Medical History (Updated 03/08/25 @ 09:29 by Guilherme Rodriguez MD) History of marijuana use Arthritis Diverticulitis Stress incontinence Anxiety Depression Vitamin B12 deficiency Elevated cholesterol Anemia Sacroiliitis Sleep apnea Arthritis of knee, left History of abdominal hernia Dyslipidemia Bipolar 2 disorder Surgical History (Updated 12/12/24 @ 11:27 by Todd Rice, [facility]) History of incisional hernia repair History of lumbar fusion H/O colonoscopy History of partial hypophysectomy H/O hernia repair History of colostomy reversal History of elbow surgery History of left oophorectomy History of partial surgical removal of colon History of total right knee replacement Family History Father Hypertension Mother Pre-diabetes Hypertension Sister Cervical cancer Social History Household Members: Family Household Members Other:: sister Housing: Apartment Housing Other:: third floor Are you a primary medicare coordinator to a significant other at home: No Do you presently have visiting nurse or other home services: Yes Alcohol intake: current Alcohol intake frequency: does not drink Patient Tobacco Use Status: Former Tobacco user Tobacco use type: Smokeless Tobacco Cigarettes Per Day: 4 Years Smoked: 20 years e-Cigarette/Vaping Use: Never Used Second Hand Smoke Exposure: No Substance Use Type: Marijuana service: No Current occupational status: disabled Cognitive needs: No Hearing needs: No Vision needs: No Review of Systems Const All systems reviewed & are unremarkable except as noted in HPI and below ENT Reports Normal hearing present Neuro Reports Normal hearing present, Denies Abnormal speech present and Denies Sensory deficit (Neuro) Physical Exam Vital Signs: Last Vital Signs Pulse 86 03/08/25 08:56 Resp 18 03/08/25 08:56 BP 156/94 H 03/08/25 08:56 Pulse Ox 98 03/08/25 08:56 Oxygen Delivery Method Room Air 03/08/25 08:56 BMI result Body Mass Index 41.0 Const General: alert, awake, Physically active and acute distress severe Nutritional Appearance: obese centrally obese Orientation/consciousness: patient oriented x3 Limitations: physical limitations and ambulation with cane Eyes General: appearance normal, both eyes and all related structures Pupils: Equal, round and reactive pupils present EOM: EOMs intact bilaterally Neck Neck: Yes full ROM Chest Chest palpation & inspection: normal inspection of the chest Resp Effort & Inspection: normal respiratory effort, able to speak in complete sentences, normal respiratory pattern, no audible wheezes and no cough Cardio Jugular venous distension: no JVD GI Other: On inspection there is a scar on anterior surface of the abdomen approximately 15 cm long. The scar is very well healed there is no redness no swelling no pathological discharge. There is severe tenderness on palpation in right lower quadrant. There is no rebound, there is no rigidity, coughing and sneezing aggravate her pain severely. Reports severe constipations. Reports incontinence with urine. Back/Spine/Pelvis Other: On inspection there are 2 scars in the projection of the most lower portion of the lumbar area the scars very well-healed there is also 1 scar below the right scar on the right which probably is from sacroiliac joint fusion from PSIS. Elmer test is positive on the left and equivocal on the right Gaenslen test is positive on the left and equivocal on the right, Stinchfield test is positive on the left and pelvic distraction test is positive on the left and equivocal on the right. Lateral and medial bilateral hip rotation cause severe discomfort in the groin bilaterally. Neuro General: patient oriented x3 and gait normal Cranial nerves: Yes CN's II-XII intact bilaterally, Yes Equal, round and reactive pupils present, Yes Normal hearing present and Yes Ability to bilaterally elevate shoulders present Speech: No Abnormal speech present Gait exam (Neuro): Normal gait present Motor exam (neuro): 5/5 motor strength present throughout Sensory Exam: No Sensory deficit (Neuro) Extrem General: No pedal edema Psych Speech and movement: Normal speech and movement present Affect: normal affect Attitude: cooperative Thought process: Normal thought process present Thought content: Normal thought content present Insight: Good insight present (Psych) Judgement: Good judgement present (Psych) Results Reviewed Results Reviewed: CT PELVIS WITHOUT CONTRAST CLINICAL INFORMATION: Sacroiliitis. COMPARISON: Lumbar spine CT 03/02/2024, sacroiliac joint radiographs 01/07/2024. TECHNIQUE: Helical scanning was performed with submillimeter collimation through the pelvis. Sagittal and coronal multiplanar 2-D reconstructions were obtained. FINDINGS: The visualized bowel appears unremarkable. There is no evidence of bowel obstruction. The appendix appears normal. There has been prior anterior abdominal wall hernia repair with mesh, unchanged from prior. No free fluid is seen. No adenopathy is seen. Some minimal atherosclerotic changes are present in the aorta and iliofemoral vessels. There is no evidence of an abdominal aortic aneurysm. A normal-appearing anteverted uterus is present which contains an IUD. An abnormal adnexal mass or free intraperitoneal fluid is not seen. The bony pelvis appears unremarkable. There is an unchanged, rounded, sclerotic lesion with lucent center in the right hemisacrum, adjacent to the SI joint (see saved mckeon images). No pathologic fractures or bony destructive lesions. Degenerative changes are seen at L5-S1. CT/CT pelvis wo IV con IMPRESSION: 1. No significant abnormality is seen. 2. The SI joints appear unremarkable. 3. Incidental note made of prior anterior abdominal wall hernia repair with mesh, IUD , degenerative changes at L5-S1 and unchanged sclerotic lesion in the right hemisacrum. Assessment & Plan Assessment & Plan (1) Primary osteoarthritis of left hip: Code(s): M16.12 - Unilateral primary osteoarthritis, left hip Category: Medical (2) Left hip pain: Code(s): M25.552 - Pain in left hip Category: Medical (3) Arthritis of right hip: Code(s): M16.11 - Unilateral primary osteoarthritis, right hip Category: Medical (4) Right hip pain: Code(s): M25.551 - Pain in right hip Category: Medical Plan Although on the CT scan done in 2023 not much of the attention is paid to arthritic changes in the hip joints, on physical exam today the features are very prominent for left sacroiliitis as well as left hip joint arthritis. I offered this patient 1st to perform left hip joint steroid injection. I also recommend her to consider right hip joint steroid injection I will see her after the procedure. Patient Instructions: I here by testify that I spent 30 minutes in conversation with this patient as well as evaluating patient's records and patient diagnostic studies as well as planning her care and organizing this note. Coding Level of Care Code Est Pt Level 4 (33961) Diagnoses Primary osteoarthritis of left hip M16.12 Left hip pain M25.552 Arthritis of right hip M16.11 Right hip pain M25.551
== END 2025-03-08 09:14 | disposition home or self-care (01) ==
LOC: HO.PMC 08:33
PROVIDERS: PCP Nurse Practitioner Family; Visit Provider Anesthesiology
DX: M16.0 Bilateral primary osteoarthritis of hip (principal); M25.552 Pain in left hip; M25.551 Pain in right hip
CPT/HCPCS: 99214

== ENCOUNTER → 2025-03-08 08:32 | Outpatient (BNVA) | payer OTHER, SELFPAY | PROVIDERS: PCP Nurse Practitioner Family; Visit Provider Anesthesiology | DX: M16.12 Unilateral primary osteoarthritis, left hip (principal); M25.552 Pain in left hip; M16.11 Unilateral primary osteoarthritis, right hip; M25.551 Pain in right hip | CPT/HCPCS: 99212 ==

== ENCOUNTER 2025-05-09 06:22 | Outpatient (REF) | payer OTHER, SELFPAY ==
--- OUTSIDE RECORDS SUMMARY | 2025-05-08 06:30 | XMS_ITS ---
Author Organization [employer] [facility] [facility] Address [address] [facility] [address] [place] [address] Care Team Providers Care Bath House Attendant Name Role Phone JASPREET COWAN M.D Primary Care Provider LUPE Hobbs Unavailable [phone] REASON FOR VISIT Annual ACCOUNT MANAGER EDUCATION Physical Encounters Encounter Location Date Provider Diagnosis [facility] [address] [address] 05/08/2025 LUPE MONROE Encounter for gynecological examination [...] Follow Up: 1 Year, Reason: Y early Road Supervisor Of Engines Exam Provider Name:LUPE Soler, 06/22/2025 01:30:00 PM, [address], [address], [place], [address], Progress Notes * JO ANN LEDESMADOB:[birth year] (44 yo F)Acc No.[id number]:05/08/2025 PROGRESS NOTES Patient: JO ANN SHOOK Provider: Richa MONROE MD :1980 A ge:44 Y S ex:Female Date:05/08/2025 Address:[address] [place], [place] [id number] Pcp:JASPREET COWAN M.D Subjective: * Chief Complaints: * 1 . Annual ACCOUNT MANAGER EDUCATION Physical. 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 S he has been in state [...] Needs refill. S he has received the [employer] Covid-19 vaccine. R elationship status: *partnered for *8 mo. It's a long distance relationship - she lives in [place], [place]. She is sexually active. Sexual partner(s): [...] yet done it this year). Done at [facility]. She does *not have a family history of colon cancer. She has had a colonoscopy. The last colonoscopy was 3 years ago. She gets them every 5 yrs due to history of diverticulitis. T he patient does* exercise. She exercises x 1days/week by hiking. * ROS: A nnual Road Supervisor Of Engines Exam ROS: Bowel habit changes d enies. [...] no acute distress, well developed, well nourished, research physicist present in room. HEAD: n ormocephalic, atraumatic. [...] * Follow Up: 1 Year (Reason: Yearly Road Supervisor Of Engines Exam) * Images: Billing Information: * Visit Code: [id number] Preventive Care Est Pt. Age 40-64. 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 She has been in state of [...] that. Needs refill. She has received the [employer] Covid-19 vaccine. Relationship status: *partnered for *8 mo. It's a long distance relationship - she lives in [place], [place]. She is sexually active. Sexual partner(s): [...] yet done it this year). Done at [facility]. She does *not have a family history of colon cancer. She has had a colonoscopy. The last colonoscopy was 3 years ago. She gets them every 5 yrs due to history of diverticulitis. The patient does* exercise. She exercises x 1days/week by hiking. Examination Category Sub-Category Detail Notes Category Not es General Examination GENERAL APPEARANCE: in no ac huslia distress, well developed, well nourished, research physicist present in room HEAD: normocephalic, atrau matic [...]
--- NOTE | ~2025-05-09 | FL_ITS ---
EXAMINATION: FL GUIDANCE ONLY HISTORY: M25.559 - Pain in unspecified hip COMPARISON: None available. TECHNIQUE: Fluoroscopy time: 0.1 minute. Cumulative Dose: 5.28 mGy. DAP: 0.0672 mGym2 Images: 2. FINDINGS: Fluoroscopic spot films of the left hip demonstrate a needle in place and contrast material in the joint space. FL/FL guidance in treatment room IMPRESSION: Fluoroscopy during procedure. Please see procedure report for additional information. Electronically signed by: Jeffrey Quesada MD 05/09/2025 02:50 PM EDT
--- OUTSIDE RECORDS SUMMARY | 2025-05-09 06:24 | XMS_ITS | Patient Health Record ---
Author Organization [facility] Address [address] [facility] [address] [place] [address] Lab Technician Name Role Phone JASPREET COWAN M.D Primary Care Provider LUPE Hobbs Unavailable [phone] Allergies Allergen (clinical drug ingredient) Drug/Non Drug [...] 30 day(s) 200 Mg QD Active Nystatin 869030 UNIT/GM 1 application Externally Twice a day; [...] Notes Problem Excessive and freque nt menstruation (849797945) Excessive and frequent menstruation with regular cycle (N92.0) Active confirmed Problem Dysmenorrhea (245241450) Dysmenorrhea, unspecified (N94.6) Active confirmed Problem Anemia due to chroni c blood loss (disorder) (318771936) 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 Problem Bipolar II disorder (07366276) Bipolar II disorder (F31.81) Active confirmed Problem Endometriosis (clinical) (442023869) Other endometriosis (N80.8) Active confirmed Problem Abnormal uterine bleeding (41675559136448) Abnormal uterine and vaginal bleeding, unspecified (N93.9) Active confirmed Problem Intrauterine contraceptive device in situ (finding) (816708181) Presence of (intrauterine) contraceptive device (Z97.5) Active confirmed Problem Endometriosis (192158571) Endometriosis, unspecified (N80.9) Active confirmed Problem Dysmenorrhea (753930898) Dysmenorrhea, unspecified (N94.6) Active confirmed Problem SI - Stress incontinence (29855388) Stress incontinence (female) (male) (N39.3) Active confirmed Problem Pure hypercholesterolemia (576524297) Pure hypercholestero lemia, unspecified (E78.00) Active confirmed Plan Of Treatment Pending Test Test Name Order Date Sonohysterogram 05/16/2021 Test, Urine 06/14/2021 Test, Urine 07/11/2021 Urinalysis 05/16/2021 ULTRASOUND: PELVIC W/TRANSVAGINAL 2020 Diagnostic Left Breast Mammo/US 05/03/20 24 MM Digital Screening Mammogram 3D 2021 MM Digital Screening Mammogram 3D 2022 MM Digital Screening Mammogram 3D 2023 Next Appt Details Provider Name:LUPE Soler 06/22/2025 01:30:00 PM, [address] [facility] [address], [address], [place], [address], Insurance Providers Payer Name Payer Address Payer Phone Subscriber Number Group Number Insured Name Patient Relationship to Insured Coverage Start Date Coverage End Date [facility] [address] [place] [address] [id number] JO ANN LEDESMA Self - patient is [...]
--- OUTSIDE RECORDS SUMMARY | 2025-05-09 06:24 | XMS_ITS ---
[facility] Name [facility] Results Test Name/Text Value Interpretation Date Range Source Anion Gap Bld-sCnc 12.0 Normal 02/07/2024 [facility] BUN SerPl-mCnc 10.0 mg/dL Normal 02/07/2024 8 - [address] GFR/BSA.pred SerPlBld ZIA-DNL-HnOTgq >90.0 Normal 02/07/2024 59 - [facility]CT Chloride SerPl-sCnc 110.0 mmol/L Above high normal 98 - 107 [facility] Calcium SerPl-mCnc 9.0 mg/dL Normal 02/07/2024 8.7 - 10.5 [facility]CT Potassium SerPl-sCnc 3.6 mmol/L Normal 02/07/2024 3.4 - 5 .3 [facility] BUN/Creat SerPl 14.0 Ratio Normal 02/07/2024 10 - 25 HH CCT Bilirub SerPl-mCnc 0.2 mg/dL Normal 02/07/2024 0.2 - 1 [facility] Globulin Ser Calc-mCnc 2.4 g/dL Normal 02/07/2024 1.5 - 3.9 HHCCT ALT SerPl-cCnc 23.0 U/L Normal 02/07/2024 10 - 50 HHCC T Albumin/Glob SerPl 2.0 Ratio Normal 02/07/2024 [facility] Glucose SerPl-mCnc 70.0 mg/dL Normal 02/07/2024 65 - 99 HHCCT ALP SerPl-cCnc 37.0 U/L Normal 02/07/2024 32 - 122 HHCC T Prot SerPl-mCnc 7.2 g/dL Normal 02/07/2024 6.3 - 8.[address] Creat SerPl-mCnc 0.7 mg/dL Normal 02/07/2024 0.4 - 1.1 HH CCT CO2 SerPl-sCnc 20.0 mmol/L Below low normal 02/07/2024 22 - 33 HHCCT AST SerPl-cCnc 22.0 U/L Normal 02/07/2024 10 - 50 HHCC T Sodium SerPl-sCnc 142.0 mmol/L Normal 02/07/2024 136 - 14 5 HHCCT Albumin SerPl-mCnc 4.8 g/dL Normal 02/07/2024 3.5 - 5 H[facility]CT Basophils/leuk NFr Bld Auto 0.3 % Normal 02/07/2024 H[facility]CT RBC num Bld Auto 4.6 Mil/uL Normal 02/07/2024 4 - 5.4 H HCCT Imm Granulocytes num Bld Auto 0.02 Thou/uL Normal 02/07/2024 0 - 0.1 H[facility]CT Lymphocytes/leuk NFr Bld Auto 41.3 % Normal 02/07/2024 H[facility]CT Eosinophil/leuk NFr Bld Auto 0.8 % Normal 02/07/2024 H[facility]CT Hct VFr Bld Auto 41.7 % Normal 02/07/2024 35 - 47 HH CCT Platelet num Bld Auto 291.0 Thou/uL Normal 02/07/2024 150 - 450 HHCCT MCH RBC Qn Auto 30.2 pg Normal 02/07/2024 26 - [address] Monocytes/leuk NFr Bld Auto 10.9 % Normal 02/07/2024 [facility]CT Imm Granulocytes/leuk NFr Bld Auto 0.2 % Normal 02/07/2024 H[facility]CT Eosinophil num Bld Auto 0.07 Thou/uL Normal 02/07/2024 0 - 0.7 H[facility]CT Neutrophils/leuk NFr Bld Auto 46.5 % Normal 02/07/2024 [facility]CT Lymphocytes num Bld Auto 3.61 Thou/uL Normal 02/07/2024 1.5 - 4.5 H[facility]CT MCV RBC Auto 91.0 fL Normal 02/07/2024 80 - 100 H[facility]CT RDW RBC Auto-Rto 12.9 % Normal 02/07/2024 11.5 - 14.5 H[facility]CT Neutrophils num Bld Auto 4.06 Thou/uL Normal 02/07/2024 2 - 7.5 HHCCT Basophils num Bld Auto 0.03 Thou/uL Normal 02/07/2024 0 - 0.2 H[facility]CT Monocytes num Bld Auto 0.95 Thou/uL Normal 02/07/2024 0.2 - 1.5 HHCCT MCHC RBC Auto-mCnc 33.3 g/dL Normal 02/07/2024 30 - 36 H[facility]CT WBC num Bld Auto 8.7 Thou/uL Normal 02/07/2024 4 - 11 HHCCT PMV Bld Auto 10.0 fL Normal 02/07/2024 7.5 - 12.5 HHCCT Hgb Bld-mCnc 13.9 g/dL Normal 02/07/2024 11.7 - 15.7 HH[facility] T URINE HCG, POC Negative Normal 02/07/2024 - CC T Encounters Encounter Type Encounter Reason Primary Diagnosis Location Date Emergency Low back pain, unspecified Low back pain, unspecified [facility] 02/07/2024 Care Team Organization Name Specialty Phone Email Start Date End Da te [facility] JASPREET COWAN Primary Care 02/07/2024 [facility] 02/07/2024 [facility] 02/07/2024 11/16/2024
--- OUTSIDE RECORDS SUMMARY | 2025-05-09 06:24 | XMS_ITS | Clinical Summary ---
Author Organization [facility] Address [address] [address] Phone Care Team Providers Care Supervisor Livestock Yard Name Role Phone Todd Rice NP Primary Care Provider + Allergies Active Allergy Reactions Criticality Noted Date Comments Aloe Hives,Itching,Swelling 07/01/2023 Gabapentin 07/01/2023 Pregabalin 07/01/2023 Metoclopramide Hcl Feeling Irritable Low 04/16/2023 Medications methylPREDNISol one (MEDROL, RONA,) 4 mg tablet as directed Orally 6 Active ATORVASTATIN CALCIUM (ATORVASTATIN ORAL) Active Medication-Free Text Ativan Active SERTRALINE HCL (SERTRALINE ORAL) Active Medication-Free Text Protonix Active CYCLOBENZAPRINE HCL (FLEXERIL ORAL) Active Medication-Free Text Gabapentin Active Medication-Free Text Ibuprofen Active Medication-Free Text Dilaudid Active clonazePAM (KLONOPIN) 1 MG tablet 3 Active cyanocobalamin (VITAMIN B-12) 1,000 mcg/mL injection 3 Active escitalopram oxalate (LEXAPRO) 10 MG tablet 3 Active norethindrone (AYGESTIN) 5 mg tablet 3 Active oxyCODONE-aceta minophen (PERCOCET) 5-325 mg per tablet 3 Active prochlorperazin e (COMPAZINE) 5 MG tablet 3 Active scopolamine (TRANSDERM-SCOP ) 1 mg over 3 days 3 Active traZODone (DESYREL) 300 MG tablet Take 200 mg by mouth nightly at bedtime. Active Active Problems Problem Noted Date Diagnosed Date Disorder of sacrum 08/06/2023 Social History Tobacco Use Types Packs/Day Years Used Date Smoking Tobacco: Never Assessed Education Answer Date Recorded Are you interested in more education? Not on isaac e 05/29/2023 Are you concerned about learning? Not on file 05/29/2023 No 05/29/2023 No 05/29/2023 Digital Access Answer Date Recorded No 05/29/2023 No 05/29/2023 Reliable internet access at home? Not on file 05/29/2023 Device with a working camera? Not on file Comments Unknown Sex and Gender Information Value Date Recorded Sex Assigned at Not on file Legal Sex Female 10:30 PM EDT Gender Identity Not on file Sexual Orientation Not on file Last Filed Vital Signs Vital Sign Reading Time Taken Comments Blood Pressure 122/72 07/01/2023 10:09 AM EDT Pulse 76 07/01/2023 10:09 AM EDT Temperature 36.6 C (97.8 F) 07/01/2023 10:09 AM EDT Respiratory Rate - - Oxygen Saturation 98% 07/01/2023 10:09 AM EDT Inhaled Oxygen Concentration - - Weight 103.4 kg (228 lb) 07/01/2023 10:09 AM EDT Height 170.2 cm (5' 7 ) 07/01/2023 10:09 AM EDT Body Mass Index 35.71 07/01/2023 10:09 AM EDT Plan of Treatment Health Maintenance Due Date Last Done Comments Adult Td,Tdap Booster 1978 LIPID PANEL 1978 DEPRESSION SCREENING 1990 SMOKING Hx and SMOKELESS TOBACCO SCREENING 1991 HEPATITIS C SCREENING 1996 HIV ONE-TIME SCREENING (18-65 YEARS) 1996 PAP SMEAR 1999 SCREENING FOR DIABETES 2013 MAMMOGRAM 2018 COLOGUARD 2023 COLONOSCOPY 2023 COLORECTAL CANCER SCREENING 2023 FIT TEST 2023 FOBT 2023 SIGMOIDOSCOPY 2023 VIRTUAL COLONOSCOPY 2023 INFLUENZA VACCINE (#1) 2025 8, 07/21/2017, 06/12/2016, Additional history exists COVID-19 VACCINE ( season) 2025 01/02/2021, 12/12/2020 HEPATITIS A VACCINES Aged Out No long er eligible based on patient's age to complete this topic HIB VACCINES Aged Out No longer eligi ble based on patient's age to complete this topic MENINGOCOCCAL VACCINES (ACWY) Aged Out No longer eligible based on patient's age to complete this topic MENINGOCOCCAL VACCINES (B) Aged Out N o longer eligible based on patient's age to complete this topic PNEUMOCOCCAL VACCINES (0-49 years) Aged Out No longer eligible based on patient's age to complete this topic Medical Devices Not on file Insurance [address] [place] [address] CARE MEDICARE REPLACEMENT [employer] [id number] [place] [id number] [place] [address] MEDICARE REPLACEMENT [address] [place], [place] [id number] [place] [address] CARE MEDICARE REPLACEMENT [address] [place], [place] [id number] [place] [address] [address] [place] [id number] [place] [address] [address] [place] [address] [facility] ONE CARE MEDICARE REPLACEMENT [employer] [facility] [address] [place] [address] [address] [place] [address] [address] [place] [address] Care Teams Supervisor Livestock Yard Relationship Specialty Start Date End Date Todd Rice NP [address] [place] [address] PCP - General Nurse Practitioner 05/27/23 Additional Source Comments The information contained in this document represents components of the legal health record. It is not the complete legal health record.[facility]
--- OUTSIDE RECORDS SUMMARY | 2025-05-09 06:25 | XMS_ITS | Clinical Summary ---
Author Organization [facility] Address [address] [place] [address] Care Team Providers Care Analysis Or Research Safety Inspector Name Role Phone Todd Rice MD Primary Care Provider [phone] Allergies Active Allergy Reactions Criticality Noted Date [...] 4 mg/0.1 mL Liquid nasal spray device [place] 4 mg (1 nasal spray) as a [...] MGD MEDICARE OUT OF NETWORK Care Teams Analysis Or Research Safety Inspector Relationship Specialty Start Date End Date Todd Rice MD [address] [address] PCP - General Family Medicine 02/07/24
--- OUTSIDE RECORDS SUMMARY | 2025-05-09 06:25 | XMS_ITS | Clinical Summary ---
Author Organization [facility] it Address [address] [place] [address] Care Team Providers Care Jewel Diameter Gauger Name Role Phone Unavailable Primary Care Provider Unavailabl e Surgical History Surgery Date Site/Laterality Comments COLONOSCOPY 03/06/2009 PROCEDURE: CA COLONOSCOPY FLX DX W/COLLJ SPEC WHEN PFRMD; [...] Cervical Cancer Screening: P ap Smear 1999 Colorectal Cancer Screening: Colonoscopy 08/30/2024 HIV Screening 08/30/2024 Hepatitis C Screening 08/30/2024 Social Influencers of Health Screening 08/30/2024 Depression Screening 08/31/2024 COVID-19 Vaccine (1 - 2023-2 5 season) 2025 Influenza Vaccine (#1) 2025 HIB Vaccines Aged [...]
--- OUTSIDE RECORDS SUMMARY | 2025-05-09 06:25 | XMS_ITS | Clinical Summary ---
Author Organization [facility] Address [address] [place] [address] Phone Care Team Providers Care Peanut Shaker Name Role Phone Unavailable Primary Care Provider [...] Phone Billing Address Personal/Family Self [address] Care Dual SNP ([id number]) [employer] [phone]
== END 2025-05-09 06:23 | disposition home or self-care (01) ==
LOC: CF 06:22
PROVIDERS: Visit Provider Anesthesiology
DX: M16.12 Unilateral primary osteoarthritis, left hip (principal); M25.552 Pain in left hip
CPT/HCPCS: 20610; J2003; J2795; J3301; Q9967

== ENCOUNTER 2025-05-09 14:05 | Outpatient (AMB) | payer OTHER, SELFPAY ==
--- NOTE | 2025-05-09 14:09 | MHC.OFFVIS ---
Vital Signs 05/09/25 14:10 Height 5 ft 7 in Weight 250 lb BMI 39.2 BP 163/86 H Blood Pressure Location Lt brachial Position Sitting Respiration 18 Pulse 72 Pulse Source Pulse Oximeter Pulse Oximetry (%) 96 Oxygen Delivery Method Room Air Intake Visit Reasons: (L) Hip Steroid Injection Electro Mechanical Technician Required: No Allergies aloe vera (ALOE VERA) Allergy (Intermediate, Verified 03/08/25 08:56) RASH metoclopramide (From REGLAN) Allergy (Intermediate, Verified 03/08/25 08:56) antsy allopurinol Allergy (Unknown, Verified 03/08/25 08:56) does not remember gabapentin Adverse Reaction (Intermediate, Verified 03/08/25 08:56) Muscle cramps pregabalin (From Lyrica) Adverse Reaction (Intermediate, Verified 03/08/25 08:56) Muscle cramps PFSH Medical History (Updated 03/08/25 @ 09:29 by Guilherme Rodriguez MD) History of marijuana use Arthritis Diverticulitis Stress incontinence Anxiety Depression Vitamin B12 deficiency Elevated cholesterol Anemia Sacroiliitis Sleep apnea Arthritis of knee, left History of abdominal hernia Dyslipidemia Bipolar 2 disorder Surgical History (Updated 12/12/24 @ 11:27 by Todd Rice, [facility]) History of incisional hernia repair History of lumbar fusion H/O colonoscopy History of partial hypophysectomy H/O hernia repair History of colostomy reversal History of elbow surgery History of left oophorectomy History of partial surgical removal of colon History of total right knee replacement Family History Father Hypertension Mother Pre-diabetes Hypertension Sister Cervical cancer Social History Household Members: Family Household Members Other:: sister Housing: Apartment Housing Other:: third floor Are you a primary special needs child caregiver to a significant other at home: No Do you presently have visiting nurse or other home services: Yes Alcohol intake: current Alcohol intake frequency: does not drink Patient Tobacco Use Status: Former Tobacco user Tobacco use type: Smokeless Tobacco Cigarettes Per Day: 4 Years Smoked: 20 years e-Cigarette/Vaping Use: Never Used Second Hand Smoke Exposure: No Substance Use Type: Marijuana service: No Current occupational status: disabled Cognitive needs: No Hearing needs: No Vision needs: No Physical Exam Vital Signs: Last Vital Signs Pulse 72 05/09/25 14:10 Resp 18 05/09/25 14:10 BP 163/86 H 05/09/25 14:10 Pulse Ox 96 05/09/25 14:10 Oxygen Delivery Method Room Air 05/09/25 14:10 BMI result Body Mass Index 39.2 Assessment & Plan Assessment & Plan (1) Primary osteoarthritis of left hip: Code(s): M16.12 - Unilateral primary osteoarthritis, left hip Category: Medical Plan Intra-articular left hip steroid injection. Informed consent was explained to the patient. All questions were explained and? answered.? The patient was taken inside the operating room where he was positioned RIGHT lateral decubitus on the operating table.? Time-out was performed delineating correct site, side, the nature of the procedure, patient's allergy, preoperative antibiotic if needed.? All operating room staff was participating in OR time-out procedure.? Non dependent LEFT hip was prepped with ChloraPrep and draped with sterile towels.? Sterilely draped C-arm was brought over the operating field and the picture of bilateral hip joints were obtained on the screen.? The smaller joint was chosen as the target for the injection.? The trochanter position was noted on the screen.? The projection of the trochanter to the skin was noted, the direction of the femoral neck was noted.? The skin was anesthetized using 2% lidocaine at the trochanter area.? 22 gauge 7 in needle was inserted through the skin and advanced to the hip joint silhouette on anterior posterior view.? When needle entered the joint the injection of the contrast was performed demonstrating intra-articular spread of the contrast.? After that 5 cc of bupivacaine mixed with 40 mg of Kenalog was injected into the area.? The needle was removed sterile dressing was applied Orders: Orders FL guidance in treatment room 05/09/25 M25.559 - Pain in unspecified hip Coding Level of Care Code Procedure Only Diagnoses Primary osteoarthritis of left hip M16.12
[2025-05-09 14:10] VITALS: BP 163/86; PULSE 72; RESP 18; O2SAT 96; BMI 39.2
--- OUTSIDE RECORDS SUMMARY | 2025-05-09 16:43 | XMS_ITS | Clinical Summary ---
Author Organization [facility] Address [address] [address] Phone Care Team Providers Care Senior Mainframe Developer Name Role Phone Todd Rice NP Primary [...] Medical Devices Not on file Insurance [address] [place] [address] CARE MEDICARE REPLACEMENT [employer] [id number] [place] [id number] [place] [address] MEDICARE [address] [place], [place] [id number] [place] [address] CARE MEDICARE REPLACEMENT [address] [place], [place] [id number] [place] [address] MEDICARE REPL[address]EMENT [address] [place], [place] [id number] [place] [address] MEDICARE REPL[address]EMENT [address] [place] [address] [facility] ONE CARE MEDICARE REPLACEMENT [employer] [facility] [address] [place] [address] [address] [place] [address] [address] [place] [address] Care Teams Senior Mainframe Developer Relationship Specialty Start Date End Date Todd Rice NP [address] [place] [address] PCP - General Nurse Practitioner 05/27/23 Additional Source Comments The information contained in this document represents components of the legal health record. It is not the complete legal health record.[facility]
--- OUTSIDE RECORDS SUMMARY | 2025-05-09 16:43 | XMS_ITS | Clinical Summary ---
Author Organization [facility] Address [address] [place] [address] Care Team Providers Care Vice President Of Customer Service Name Role Phone Todd Rice MD Primary [...] 4 mg/0.1 mL Liquid nasal spray device [place] 4 mg (1 nasal spray) as a [...] MGD MEDICARE OUT OF NETWORK Care Teams Vice President Of Customer Service Relationship Specialty Start Date End Date Todd Rice MD [address] [place] [address] PCP - General Family Medicine 02/07/24
--- OUTSIDE RECORDS SUMMARY | 2025-05-09 16:43 | XMS_ITS | Clinical Summary ---
Author Organization [facility] it Address [address] [place] [address] Care Team Providers Care Survey And Mapping Technician Name Role Phone Unavailable Primary Care Provider Unavailabl e Surgical History Surgery Date Site/Laterality Comments COLONOSCOPY 03/06/2009 PROCEDURE: [place] COLONOSCOPY FLX DX W/COLLJ SPEC WHEN PFRMD; [...]
--- OUTSIDE RECORDS SUMMARY | 2025-05-09 16:43 | XMS_ITS | Clinical Summary ---
Author Organization [facility] Address [address] [place] [address] Phone Care Team Providers Care Machine Hand Name Role Phone Unavailable Primary Care Provider [...] Phone Billing Address Personal/Family Self [address] Care Dual SNP ([id number]) [place] [phone]
== END 2025-05-09 14:44 | disposition home or self-care (01) ==
LOC: HO.PMCPRC 14:05
PROVIDERS: PCP Nurse Practitioner Family; Visit Provider Anesthesiology
DX: M16.12 Unilateral primary osteoarthritis, left hip (principal)
CPT/HCPCS: 20610; 77002

== ENCOUNTER 2025-06-07 10:02 | Outpatient (AMB) | payer OTHER, SELFPAY ==
[2025-06-07 10:09] VITALS: BP 180/102; PULSE 90; RESP 16; O2SAT 96; BMI 39.8
--- NOTE | 2025-06-07 10:09 | MHC.OFFVIS ---
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 The procedure was done on 05/09/2025. The patient reported only 7-10 days of pain improvement after the procedure. After that the pain came back. She also stated that her pain in the sacroiliac joint projection on the left is getting exacerbated. She requests me to schedule her for diagnostic left sacroiliac joint injection. I will fulfill her request. We also discussed possibility of treating her pain with intrathecal pain pump. I explained to the patient that without the psychological evaluation we can not do anything about pain pump treatment. I explained to her that we did not receive the psychological evaluation from her psychologist or psychiatrist. Prior: Severe intractable pain in the left side of the abdomen. pain started on 06/29/2024 when she had simultaneous surgery on her lower back and in her abdomen. She received L5-S1 posterior fusion by Dr. Valle, and after that she was turned over and Dr. Beaver performed ventral hernia repair. The patient had history of multiple surgeries on her colon in the past related to diverticulosis and diverticulitis. She was admitted to [facility] [place] in [place] and she was examined by general surgery, there were no indications of acute intra-abdominal process. The report of the CT scan dictated as below. She also had an MRI of the lumbar spine report of this MRI is also dictated as below. None of those images would explain left lower quadrant pain is patient in is complaining today. She has an appointment with Dr. Beaver this coming Thursday to evaluate her condition and possibly establish the source of Her past surgical history is very extensive. She had 7 abdominal hernia repairs she has a history of total knee replacement on the right. She had history of colon resection and left oophorectomy. History of colostomy and colostomy reversal. She had surgery on her elbow and L5-S1 posterior fusion. She stopped smoking cigarettes in December of 2022. She denies drinking alcohol. She drinks cup of coffee a day. She takes cannabis every day for pain. [facility] Medical History (Updated 06/07/25 @ 17:37 by Guilherme Rodriguez MD) History of marijuana use Arthritis Diverticulitis Stress incontinence Anxiety Depression Vitamin B12 deficiency Elevated cholesterol Anemia Sacroiliitis Sleep apnea Arthritis of knee, left History of abdominal hernia Dyslipidemia Bipolar 2 disorder Surgical History (Updated 12/12/24 @ 11:27 by Todd Rice [facility]) History of incisional hernia repair History of lumbar fusion H/O colonoscopy History of partial hypophysectomy H/O hernia repair History of colostomy reversal History of elbow surgery History of left oophorectomy History of partial surgical removal of colon History of total right knee replacement Family History Father Hypertension Mother Pre-diabetes Hypertension Sister Cervical cancer Social History Household Members: Family Household Members Other:: sister Housing: Apartment Housing Other:: third floor Are you a primary district manager primary care sales to a significant other at home: No Do you presently have visiting nurse or other home services: Yes Alcohol intake: current Alcohol intake frequency: does not drink Patient Tobacco Use Status: Former Tobacco user Tobacco use type: Smokeless Tobacco Cigarettes Per Day: 4 Years Smoked: 20 years e-Cigarette/Vaping Use: Never Used Second Hand Smoke Exposure: No Substance Use Type: Marijuana service: No Current occupational status: disabled Cognitive needs: No Hearing needs: No Vision needs: No Review of Systems Const All systems reviewed & are unremarkable except as noted in HPI and below ENT Reports Normal hearing present Neuro Reports Normal hearing present, Denies Abnormal speech present and Denies Sensory deficit (Neuro) Physical Exam Vital Signs: Last Vital Signs Pulse 90 06/07/25 10:09 Resp 16 06/07/25 10:09 BP 180/102 H 06/07/25 10:09 Pulse Ox 96 06/07/25 10:09 Oxygen Delivery Method Room Air 06/07/25 10:09 BMI result Body Mass Index 39.8 Const General: alert, awake, Physically active and acute distress severe Nutritional Appearance: obese centrally obese Orientation/consciousness: patient oriented x3 Limitations: physical limitations and ambulation with cane Eyes General: appearance normal, both eyes and all related structures Pupils: Equal, round and reactive pupils present EOM: EOMs intact bilaterally Neck Neck: Yes full ROM Chest Chest palpation & inspection: normal inspection of the chest Resp Effort & Inspection: normal respiratory effort, able to speak in complete sentences, normal respiratory pattern, no audible wheezes and no cough Cardio Jugular venous distension: no JVD GI Other: On inspection there is a scar on anterior surface of the abdomen approximately 15 cm long. The scar is very well healed there is no redness no swelling no pathological discharge. There is severe tenderness on palpation in right lower quadrant. There is no rebound, there is no rigidity, coughing and sneezing aggravate her pain severely. Reports severe constipations. Reports incontinence with urine. Back/Spine/Pelvis Other: On inspection there are 2 scars in the projection of the most lower portion of the lumbar area the scars very well-healed there is also 1 scar below the right scar on the right which probably is from sacroiliac joint fusion from PSIS. Elmer test is positive on the left and equivocal on the right , Gaenslen test is positive on the left and equivocal on the right, Stinchfield test is positive on the left and pelvic distraction test is positive on the left and equivocal on the right. [place] test is positive on the left. Lateral and medial bilateral hip rotation cause severe discomfort in the groin bilaterally. Neuro General: patient oriented x3 and gait normal Cranial nerves: Yes CN's II-XII intact bilaterally, Yes Equal, round and reactive pupils present, Yes Normal hearing present and Yes Ability to bilaterally elevate shoulders present Speech: No Abnormal speech present Gait exam (Neuro): Normal gait present Motor exam (neuro): 5/5 motor strength present throughout Sensory Exam: No Sensory deficit (Neuro) Extrem General: No pedal edema Psych Speech and movement: Normal speech and movement present Affect: normal affect Attitude: cooperative Thought process: Normal thought process present Thought content: Normal thought content present Insight: Good insight present (Psych) Judgement: Good judgement present (Psych) Assessment & Plan Assessment & Plan (1) Primary osteoarthritis of left hip: Code(s): M16.12 - Unilateral primary osteoarthritis, left hip Category: Medical (2) Left hip pain: Code(s): M25.552 - Pain in left hip Category: Medical (3) Arthritis of right hip: Code(s): M16.11 - Unilateral primary osteoarthritis, right hip Category: Medical (4) Right hip pain: Code(s): M25.551 - Pain in right hip Category: Medical (5) Somatic dysfunction of left sacroiliac joint: Code(s): M99.04 - Segmental and somatic dysfunction of sacral region Category: Medical (6) Chronic left SI joint pain: Code(s): M53.3 - Sacrococcygeal disorders, not elsewhere classified; G89.29 - Other chronic pain Category: Medical Plan Unfortunately intra-articular hip steroid injection resulted in short-lived pain improvement. We agreed that I will schedule the patient for diagnostic left sacroiliac joint injection. She reports pain in the left groin as well as pain in the left side of the lower back. Those 2 pathologies could coincide 1 with a another. If after the left diagnostic sacroiliac joint injection the condition in the left groin will improve as well we will discuss possibility of different modalities to treat her sacroiliac joint on the left. In the past we discussed intrathecal pain pump. Unfortunately we can not proceed with a trial because her psychologist/psychiatrist did not provide us the psychological evaluation. I will schedule patient for the sacroiliac joint injection and after that we will discuss issues further. I will see her after the procedure. Coding Level of Care Code Est Pt Level 3 (27316) Diagnoses Primary osteoarthritis of left hip M16.12 Left hip pain M25.552 Arthritis of right hip M16.11 Right hip pain M25.551 Somatic dysfunction of left sacroiliac joint M99.04 Chronic left SI joint pain M53.3; G89.29
== END 2025-06-07 10:27 | disposition home or self-care (01) ==
LOC: HO.PMC 10:03
PROVIDERS: PCP Nurse Practitioner Family; Visit Provider Anesthesiology
DX: M16.0 Bilateral primary osteoarthritis of hip (principal); M25.552 Pain in left hip; M25.551 Pain in right hip; M99.04 Segmental and somatic dysfunction of sacral region; M53.3 Sacrococcygeal disorders, not elsewhere classified; G89.29 Other chronic pain
CPT/HCPCS: 99214

== ENCOUNTER → 2025-06-07 10:02 | Outpatient (BNVA) | payer OTHER, SELFPAY | PROVIDERS: PCP Nurse Practitioner Family; Visit Provider Anesthesiology | DX: M16.12 Unilateral primary osteoarthritis, left hip (principal); M25.552 Pain in left hip; M16.11 Unilateral primary osteoarthritis, right hip; M25.551 Pain in right hip; M99.04 Segmental and somatic dysfunction of sacral region; M53.3 Sacrococcygeal disorders, not elsewhere classified | CPT/HCPCS: 99212 ==

== ENCOUNTER 2025-06-21 08:52 | Outpatient (AMB) | payer OTHER, SELFPAY ==
[2025-06-21 08:59] VITALS: BP 138/110; PULSE 78; RESP 18; TEMP 36.1; O2SAT 98; BMI 40.0
--- NOTE | 2025-06-21 08:59 | A.OFFPC_ITS ---
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 Curtain Cutter Required: No Accompanied by: Self / Same As Patient Allergies aloe vera (ALOE VERA) Allergy (Intermediate, Verified 06/21/25 09:00) RASH metoclopramide (From REGLAN) Allergy (Intermediate, Verified 06/21/25 09:00) antsy allopurinol Allergy (Unknown, Verified 06/21/25 09:00) does not remember gabapentin Adverse Reaction (Intermediate, Verified 06/21/25 09:00) Muscle cramps pregabalin (From Lyrica) Adverse Reaction (Intermediate, Verified 06/21/25 09:00) Muscle cramps Medication List - Last Reconciled 06/21/25 by Gael Garcia MD atorvastatin 20 mg PO BEDTIME biotin 5 mg PO DAILY [cpap mask/supplies Mask for CPAP and any other tubing or supplies.] [crutches crutches dx: sacroiliac fusion patient non weight bearing right leg Held on 06/30/24. Instructions: Resume on 06/30/24. old order for previous SI joint fusion] cyanocobalamin (vitamin B-12) 1,000 mcg IM .Q3 weeks 21 days lorazepam 1 mg PO DAILY PRN metoprolol succinate ER 25 mg PO BID 30 days norethindrone acetate 10 mg PO BEDTIME prochlorperazine maleate (Compazine) 10 mg PO BID PRN [sacroiliac cushion As directed Held on 06/30/24. Instructions: Resume on 06/30/24. old order for previous Si joint fusion] scopolamine base 1 patch transdermal Q3D PRN syringe with needle, safety (BD Integra Syringe) q 3 weeks topiramate 300 mg PO BEDTIME trazodone 200 mg PO BEDTIME [wedge pillow for under knees As directed] Tobacco use date assessed: 06/21/25 Dental Screening Dental Screen Date: 06/21/25 Did you have a dental visit in the last 12 months?: No Did you have a dental problem in the last 6 months where you did not have access to dental care?: No Was dental information given to patient?: No HPI HPI Comments History of Present Illness Details The patient is a 45-year-old female [facility]. The patient's main concerns are regarding Vitamin B12 deficiency and chronic pain management. The patient reports a history of Vitamin B12 deficiency, which she attributes to a partial colon resection due to diverticulitis at age 28. She experiences symptoms such as heart palpitations and breathing difficulties, which improve after B12 injections. To note that the patient's most recent B12 level was within normal level. The patient has a history of bipolar II disorder and was previously managed on topiramate, which she has not taken for over a year due to lack of a provider. Chronic pain is a significant issue for the patient, with a history of multiple surgeries, including a knee replacement, elbow surgery, and eight abdominal surgeries primarily for hernia repairs. She is currently under pain management and is being evaluated for a potential hip replacement due to severe pain and functional limitations. The patient has a history of hypertension, which she attributes to chronic pain, and is currently on metoprolol, although her blood pressure remains elevated. The patient has a history of diverticulitis, which led to a partial colectomy and left oophorectomy due to complications. She underwent a colostomy and subsequent reversal, and reports occasional gastrointestinal symptoms. [facility] Medical History (Updated 06/21/25 @ 10:30 by Gael Garcia MD) History of marijuana use Arthritis Diverticulitis Stress incontinence Anxiety Depression Vitamin B12 deficiency Elevated cholesterol Anemia Sacroiliitis Sleep apnea Arthritis of knee, left History of abdominal hernia Dyslipidemia Bipolar 2 disorder Surgical History History of incisional hernia repair History of lumbar fusion H/O colonoscopy History of partial hypophysectomy H/O hernia repair History of colostomy reversal History of elbow surgery History of left oophorectomy History of partial surgical removal of colon History of total right knee replacement Family History Father Hypertension Mother Pre-diabetes Hypertension Sister Cervical cancer Social History Household Members: Family Household Members Other:: sister Housing: Apartment Housing Other:: third floor Are you a primary healthcare interpreter to a significant other at home: No Do you presently have visiting nurse or other home services: Yes Alcohol intake: current Alcohol intake frequency: does not drink Patient Tobacco Use Status: Former Tobacco user Tobacco use type: Smokeless Tobacco Cigarettes Per Day: 4 Years Smoked: 20 years e-Cigarette/Vaping Use: Never Used Second Hand Smoke Exposure: No Substance Use Type: Marijuana service: No Current occupational status: disabled Cognitive needs: No Hearing needs: No Vision needs: No Questionnaire PHQ-9 Over the last 2 weeks, how often have you been bothered by any of the following problems? 1. Little interest or pleasure in doing things: several days 2. Feeling down, depressed, or hopeless: not at all 3. Trouble falling or staying asleep, or sleeping too much: more than half the days 4. Feeling tired or having little energy: nearly every day 5. Poor appetite or overeating: several days 6. Feeling bad about yourself - or that you are a failure or have let yourself or your family down: not at all 7. Trouble concentrating on things, such as reading the newspaper or watching television: several days 8. Moving or speaking so slowly that other people could have noticed. Or the opposite - being so fidgety or restless that you have been moving around a lot more than usual: not at all 9. Thoughts that you would be better off or of hurting yourself in some way: not at all Total score: 8 Source: Developed by Drs. Jeffrey Mcintosh, Robyn Turk, Shahid Benavidez and colleagues, with an educational suhail from [employer]. Thrive Questionnaire Date Thrive assessed: 06/19/25 I am a: Patient What is your living situation today?: I have a steady place to live Within the past 12 months, did the food you bought not last and you didn't have the money to get more?: Never true Within the past 12 months, did you worry whether your food would run out before you got money to buy more?: Sometimes True Do you have trouble paying for medicines?: No Do you have trouble getting transportation to medical appointments?: No Do you have trouble paying your heating and electricity bill?: No Do you have trouble taking care of your child, family member or friend?: No Do you have trouble with day-to-day activities such as bathing, preparing meals, shopping, managing finances, etc.?: Yes Are you currently unemployed and looking for a job?: No Are you interested in more education?: No Please select the resources that you would like help with: None Currently or been in a relationship where the following occur: No concerns reported THRIVE Score: 1 AUDIT C Alcohol Use Questionnaire (AUDIT-C) 1. How often do you have a drink containing alcohol?: Never 2. How many drinks containing alcohol do you have on a typical day when you are drinking?: 1 or 2 3. How often do you have six or more drinks on one occasion?: Never Total Score: 0 LUZ-7 AMB Questionnaire LUZ-7 Date LUZ - 7 assessed: 06/14/24 Feeling nervous, anxious, or on edge: 1 = Several days Not being able to stop or control worryin = Not at all Worrying too much about different things: 1 = Several days Trouble relaxin = More than half the days Being so restless that it is hard to sit still: 2 = More than half the days Becoming easily annoyed or irritable: 0 = Not at all Feeling afraid as if something awful might happen: 0 = Not at all Total LUZ-7 score (0-4 normal; 5-9 mild; 10-14 moderate; 15-21 severe): 6 Source: Developed by Drs. Jeffrey Mcintosh, Robyn Turk, Shahid Benavidez and colleagues, with an educational suhail from [employer] Review of Systems Const Details: Positives besides what was mentioned in HPI are in BOLD Constitutional: No Weight Change, No Fever, No Chills, No Night Sweats, No Fatigue, No Malaise ENT/Mouth: No Hearing Changes, No Ear Pain, No Nasal Congestion, No Sinus Pain, No Hoarseness, No sore throat, No Rhinorrhea, No Swallowing Difficulty Eyes: No Eye Pain, No Swelling, No Redness, No Foreign Body, No Discharge, No Vision Changes Cardiovascular: No Chest Pain, No SOB, No PND, No Dyspnea on Exertion, No Orthopnea, No Claudication, No Edema, No Palpitations Respiratory: No Cough, No Sputum, No Wheezing, No Smoke Exposure, No Dyspnea Gastrointestinal: No Nausea, No Vomiting, No Diarrhea, No Constipation, No Pain, No Heartburn, No Anorexia, No Dysphagia, No Hematochezia, No Melena, No Flatulence, No Jaundice Genitourinary: No Dysmenorrhea, No DUB, No Dyspareunia, No Dysuria, No Urinary Frequency, No Hematuria, No Urinary Incontinence, No Urgency, No Flank Pain, No Urinary Flow Changes, No Hesitancy Musculoskeletal: No Arthralgias, No Myalgias, No Joint Swelling, No Joint Stiffness, No Back Pain, No Neck Pain, No Injury History Skin: No Skin Lesions, No Pruritis, No Hair Changes, No Breast/Skin Changes, No Nipple Discharge Neuro: No Weakness, No Numbness, No Paresthesias, No Loss of Consciousness, No Syncope, No Dizziness, No Headache, No Coordination Changes, No Recent Falls Psych: No Anxiety/Panic, No Depression, No Insomnia, No Personality Changes, No Delusions, No Rumination, No SI/HI/AH/VH, No Social Issues, No Memory Changes, No Violence/Abuse Hx., No Eating Concerns Heme/Lymph: No Bruising, No Bleeding, No Transfusions History, No Lymphadenopathy Endocrine: No Polyuria, No Polydipsia, No Temperature Intolerance Physical exam (Primary Care) Vital Signs: Last Vital Signs Temp 96.9 F 06/21/25 08:59 Pulse 78 06/21/25 08:59 Resp 18 06/21/25 08:59 BP 138/110 H 06/21/25 08:59 Pulse Ox 98 06/21/25 08:59 Oxygen Delivery Method Room Air 06/21/25 08:59 BMI result Body Mass Index 40.0 Tobacco/Smoking Status: Tobacco use Status Tobacco use date assessed 06/21/25 06/21/25 09:22 Patient Tobacco Use Status Former Tobacco user 06/21/25 09:22 Tobacco use type Smokeless Tobacco 06/21/25 09:22 e-Cigarette/Vaping Use Never Used 06/21/25 09:22 PHQ-9: PHQ-9 Score PHQ-9: Total score 8 06/21/25 09:22 Thrive Assessment: Date of Thrive Assessment Date Thrive assessed 06/19/25 06/21/25 09:22 Currently or been in a relationship where the following occur: No concerns reported Const Other: Pertinent findings are in BOLD GENERAL APPEARANCE NAD, activity normal for age, well developed/ well nourished, no cyanosis, pallor, or diaphoresis. EYES lids/conjunctiva normal. EARS/NOSE/THROAT Mucous membranes moist, nares normal, lips/teeth normal uvula midline without oral pharyngeal erythema, exudate or swelling TMs normal bilaterally. No lymphangitis/lymphedema. HEAD/NECK normocephalic atraumatic, no facial trauma, neck is supple. RESPIRATORY respiratory effort normal, speaks in full sentences, no tripod position, no accessory muscle use. Lungs clear to auscultation without rhonchi, wheezes, rales CARDIAC Regular rate and rhythm, no edema. ABDOMINAL Soft, ND/NT. No evidence of fluid wave. No pulsatile masses on exam, rebound tenderness, Barrera sign or pain over Mcburney's point. MUSCLES/EXTREMITIES No abnormal range of motion, no swelling. SKIN Warm, pink and dry. No rashes, dermatoses, petechiae or lesions. NEUROLOGICAL Speech is clear and appropriate. Normal level of consciousness. Gait and coordination are normal. 5/5 strength in all extremities. PSYCH Normal mood and affect. Judgement/competence is appropriate Coding Level of Care Code Est Pt Level 5 (12633) Est Pt Prev Care 40-64y(36001) Diagnoses B12 deficiency E53.8 Healthcare maintenance Z00.00 Bipolar 2 disorder F31.81 Chronic left SI joint pain M53.3; G89.29 Sacroiliitis M46.1 Primary hypertension I10 Hypertension type: primary hypertension Time Spent (min) 40 Comment Extensive medical history. Assessment & Plan Assessment & Plan (1) B12 deficiency: Code(s): E53.8 - Deficiency of other specified B group vitamins Category: Medical Plan: We will repeat the patient's labs and prescribe B12 shots accordingly. I advised the patient that if her B12 level are within normal limits it would be futile to give her a shot. The patient believes her heart palpitations, panick attack symptoms are related to B12 deficiency. I explained to the patient that this is less likely to be. Patient will fllow-up in three months. (2) Healthcare maintenance: Code(s): Z00.00 - Encounter for general adult medical examination without abnormal findings Category: Medical Plan: CBC, CMP, Lipid panel, A1C, TSH w T4, vit D. Ordered today. Shingles 2 doses when >50 yo. at 50. COVID: two doses. Done in the past. Tdap: Bring records next visit. Pneumococcal: 19-64. NI. Flu vaccine: Declined. Colonoscopy: 45-75. Every 5 years. next due 2025. Patient will confirm her previous colonoscopy date. AAA: 65 -75. CT lun - 80 HPV: Tomorrow Network Development Coordinator scheduled. HIV: Ordered. HBV: Ordered. HCV: Ordered. Dexa: NI. Mammogram: ese teacher appointment tomorrow. (3) Bipolar 2 disorder: Code(s): F31.81 - Bipolar II disorder Category: Medical Plan: Patient was previously on Topiramate 300 mg at bedtime. She did not get the medication for a year due to loss of follow-up. I advised the patient that we need to restart her medication at a lower dose. 25 mg daily. Psychiatry referral placed for further management of Bipolar disorder. (4) Chronic left SI joint pain: Code(s): M53.3 - Sacrococcygeal disorders, not elsewhere classified; G89.29 - Other chronic pain Category: Medical Plan: Patient sees pain management. Plan for left sacroiliac joint injection. There was a discussion of intrathecal pain pump. However the patient is pending psychological evaluation. Patient will see Dr. Whitt for potential Hip replacement. (5) Sacroiliitis: Code(s): M46.1 - Sacroiliitis, not elsewhere classified Category: Medical Plan: Recent Xray: Posterior fusion of L5-S1 without radiographic complication. (6) HTN (hypertension): Code(s): I10 - Essential (primary) hypertension Category: Medical Qualifiers: Hypertension type: primary hypertension Qualified Code(s): I10 - Essential (primary) hypertension Plan: Paitent on MEtoprolol 25 Daily. Added Lisinopril 2.5 mg. Plan During the visit, I discussed with the patient the importance of monitoring her Vitamin B12 levels. We also reviewed her bipolar II disorder management, including restarting topiramate and referring her to psychiatry for further care. The patient was advised to continue with pain management and consider evaluation for a hip replacement. We discussed her hypertension management, with adding Lisinopril. NExt visit in three months: to review labs, need for B12 shots, pain manegment plan and plan for Hip replacement. Orders: Orders Complete Blood Count no Diff Today Z00.00 - Encounter for general adult medical examination without abnormal findings IRON PROFILE Today Z00.00 - Encounter for general adult medical examination without abnormal findings Vitamin B12 and Folate Today Z00.00 - Encounter for general adult medical examination without abnormal findings Hepatitis C Antibody Reflex Today Z00.00 - Encounter for general adult medical examination without abnormal findings Hepatitis B Surface Antigen Today Z00.00 - Encounter for general adult medical examination without abnormal findings Hepatitis B Core Antibody Today Z00.00 - Encounter for general adult medical examination without abnormal findings Reticulocyte Count Today Z00.00 - Encounter for general adult medical examination without abnormal findings Comprehensive Met. Panel Today Z00.00 - Encounter for general adult medical examination without abnormal findings Hemoglobin A1c Today Z00.00 - Encounter for general adult medical examination without abnormal findings TSH reflex Free T4 Today Z00.00 - Encounter for general adult medical examination without abnormal findings Methylmalonic Acid Today Z00.00 - Encounter for general adult medical examination without abnormal findings Homocysteine Today Z00.00 - Encounter for general adult medical examination without abnormal findings HIV Ab/Ag Today Z00.00 - Encounter for general adult medical examination without abnormal findings Hepatitis B Surface Antibody Today Z00.00 - Encounter for general adult medical examination without abnormal findings Direct Christos ([place]) Today D69.6 - Thrombocytopenia, unspecified, Z00.00 - Encounter for general adult medical examination without abnormal findings Vitamin D 25-OH (D2 and D3) Today Z00.00 - Encounter for general adult medical examination without abnormal findings Referrals Psychiatry Referral F31.81 - Bipolar II disorder Medications: New topiramate 25 mg PO DAILY 60 tabs 0RF lisinopril 2.5 mg PO DAILY 90 tabs 3RF 90 days
--- OUTSIDE RECORDS SUMMARY | 2025-06-21 09:38 | XMS_ITS | Data Portability ---
Author Organization [facility], [facility] Address [address] [place] [address] Care Team Providers Care Pull Over Name Role Phone [facility] Referring Provider Assessment No assessment [...] /min 98.4 [degF] 97 % Not Available [employer] 3 11:56:43 Date Recorded Oxygen saturation in Arterial blood by Pulse oximetry Heart rate Respiratory rate Systolic And Diastolic Systolic And Diastolic Systolic And Diastolic Provider Name and Address Organization Details Last Updated DateTime 3 97 % 85 /min 16 /min 145/83 mm[Hg] 145/83 mm[Hg] 145/83 mm[Hg] Not Available [employer] 3 11:56:43 Social History None recorded. Functional Status None recorded. Mental Status None recorded. Family History Nothing Reported. Medical History No medical history recorded. Gynecological HistoryNo gynecological history recorded. Obstetrics History GPAL:G 0 P 0 0 0 0 Past Encounters Encounter ID Performer Location Encounter Start Date Encounter Closed Date Diagnosis/Indication Diagnosis SNOMED-CT Code Diagnosis ICD10 Code Diagnosis IMO Codes Diagnosis Note [id number] Albert Mariscal MD [address] [address] 02/21/2023 11:40:33 02/23/2023 09:59:30 Vitamin B12 deficiency (non anemic) [id number] E53.8 Fiber Designer gave B12 injection with no issues. Vitals stable. Health Concerns Section Related Observation LastModified by Organization Detai ls LastModified Time None Recorded Concern Status LastModified by Organization Details LastModified Time None Recorded Advance Directives Directive None Recorded Payers Insurance Date Sequence Insurance Name Policy Number Policy Casas Covered Member ID Casas Member ID Guarantor Name 05/25/2024 1 [facility] - DOS ON OR AFTER 2022 - DUAL ELIGIBLE - CORRECTION OPTIONS AND ONE CARE (MEDICARE REPLACEMENT/ADV ANTAGE - HMO) Nubia Bergeron [id number] Nubia Bergeron Notes Date Note Type Note [...] ................. ................. ................. ................. ................. ................. ..... Fiber Designer Note From Ned Breen: Assisted pt with vit b12 injection due to deficiency ................. ................. ................. ................. ................. ................. ................. ................. ..... Disposition: Fulfilled Albert Mariscal MD [address] [place] [address],[address], [place], [address], [employer] 02/21/2023 20:48:40 OBGyn Episode No OBEpisode recorded.
== END 2025-06-21 10:04 | disposition home or self-care (01) ==
LOC: HO.HMCH 08:53
PROVIDERS: PCP Nurse Practitioner Family; Visit Provider Internal Medicine
DX: Z00.00 Encounter for general adult medical examination without abnormal findings (principal); E53.8 Deficiency of other specified B group vitamins; F31.81 Bipolar II disorder; M53.3 Sacrococcygeal disorders, not elsewhere classified; G89.29 Other chronic pain; M46.1 Sacroiliitis, not elsewhere classified; I10 Essential (primary) hypertension

== ENCOUNTER → 2025-06-21 08:52 | Outpatient (BNVA) | payer OTHER, SELFPAY | PROVIDERS: PCP Nurse Practitioner Family; Visit Provider Internal Medicine | DX: Z00.00 Encounter for general adult medical examination without abnormal findings (principal); E53.8 Deficiency of other specified B group vitamins; G89.29 Other chronic pain; F31.81 Bipolar II disorder; I10 Essential (primary) hypertension; M53.3 Sacrococcygeal disorders, not elsewhere classified; M46.1 Sacroiliitis, not elsewhere classified | CPT/HCPCS: 96127; 99212; 99396 ==

== ENCOUNTER 2025-07-18 06:36 | Outpatient (REF) | payer OTHER, SELFPAY ==
--- NOTE | ~2025-07-18 | FL_ITS ---
EXAMINATION: FL GUIDANCE ONLY HISTORY: M53.3 - Sacrococcygeal disorders, not elsewhere classified COMPARISON: None available. TECHNIQUE: Fluoroscopy time: 9 seconds. Cumulative Dose: 2.00 mGy. DAP: 437.10 mGycm2 Images: 2. FINDINGS: The endoscopic spot films of the left hemipelvis demonstrate a needle and contrast material in the region of the sacroiliac joint. FL/FL guidance in treatment room IMPRESSION: Fluoroscopy during procedure. Please see procedure report for additional information. Electronically signed by: Jeffrey Quesada MD 07/19/2025 07:55 AM EST
== END 2025-07-18 06:37 | disposition home or self-care (01) ==
LOC: CF 06:36
PROVIDERS: Visit Provider Anesthesiology
DX: G89.29 Other chronic pain (principal); M16.0 Bilateral primary osteoarthritis of hip; M99.04 Segmental and somatic dysfunction of sacral region; M53.3 Sacrococcygeal disorders, not elsewhere classified
CPT/HCPCS: J2003; J2795; Q9967

== ENCOUNTER 2025-07-18 14:23 | Outpatient (AMB) | payer OTHER, SELFPAY ==
--- OUTSIDE RECORDS SUMMARY | 2025-05-08 05:30 | XMS_ITS ---
Author Organization [employer] Address [address] [facility] [address] [place] [address] Care Team Providers Care Participant Administrator Name Role Phone SAMMY RICHEY Primary Care Provider LUPE Hobbs Unavailable [phone] REASON FOR VISIT Annual DOCK GRADER Physical Encounters Encounter Location Date Provider Diagnosis [facility] [employer] [facility] [address] [place] [address] 05/08/2025 LUPE MONROE Encounter for gynecological examination [...] Follow Up: 1 Year, Reason: Y early Promotional Model Exam Provider Name:LUPE Soler, 06/28/2026 01:40:00 PM, [address], [address], [place], [address], Progress Notes * JO ANN LEDESMADOB:[birth year] (45 yo F)Acc No.[id number]:05/08/2025 PROGRESS NOTES Patient: JO ANN SHOOK Provider: Richa MONROE MD :1980 A ge:44 Y S ex:Female Date:05/08/2025 Address:[address] [place], [place] [id number] Pcp:SAMMY SILVER Subjective: * Chief Complaints: * 1 . Annual DOCK GRADER Physical. 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 S he has been in state [...] Needs refill. S he has received the [employer] Covid-19 vaccine. R elationship status: *partnered for *8 mo. It's a long distance relationship - she lives in [place], [place]. She is sexually active. Sexual partner(s): [...] yet done it this year). Done at [place]. She does *not have a family history of colon cancer. She has had a colonoscopy. The last colonoscopy was 3 years ago. She gets them every 5 yrs due to history of diverticulitis. T he patient does* exercise. She exercises x 1days/week by hiking. * ROS: A nnual Promotional Model Exam ROS: Bowel habit changes d enies. [...] no acute distress, well developed, well nourished, english composition teacher present in room. HEAD: n ormocephalic, atraumatic. [...] * Follow Up: 1 Year (Reason: Yearly Promotional Model Exam) * Images: Billing Information: * Visit Code: 06885 Preventive Care Est Pt. Age 40-64. 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 She has been in state of [...] that. Needs refill. She has received the [employer]Supp[employer] Covid-19 vaccine. Relationship status: *partnered for *8 mo. It's a long distance relationship - she lives in [place], [place]. She is sexually active. Sexual partner(s): [...] yet done it this year). Done at [place]. She does *not have a family history [...] ac preet distress, well developed, well nourished, english composition teacher present in room HEAD: normocephalic, atrau matic [...]
[2025-07-18 14:28] VITALS: BP 165/85; PULSE 92; RESP 16; O2SAT 97; BMI 39.9
--- NOTE | 2025-07-18 14:28 | A.OFFVIS_ITS ---
Vital Signs 07/18/25 14:28 07/18/25 14:43 Height 5 ft 7 in Weight 255 lb BMI 39.9 BP 165/85 H 145/95 H Blood Pressure Location Lt brachial Lt brachial Position Sitting Sitting Respiration 16 16 Pulse 92 80 Pulse Source Pulse Oximeter Pulse Oximeter Pulse Oximetry (%) 97 97 Oxygen Delivery Method Room Air Room Air Intake Visit Reasons: Left Diagnostic SIJ Injection Allergies aloe vera (ALOE VERA) Allergy (Intermediate, Verified 07/20/25 08:37) RASH metoclopramide (From REGLAN) Allergy (Intermediate, Verified 07/20/25 08:37) antsy allopurinol Allergy (Unknown, Verified 07/20/25 08:37) does not remember gabapentin Adverse Reaction (Intermediate, Verified 07/20/25 08:37) Muscle cramps pregabalin (From Lyrica) Adverse Reaction (Intermediate, Verified 07/20/25 08:37) Muscle cramps PFSH Medical History (Updated 07/20/25 @ 09:08 by Guilherme Rodriguez MD) History of marijuana use Arthritis Diverticulitis Stress incontinence Anxiety Depression Vitamin B12 deficiency Elevated cholesterol Anemia Sacroiliitis Sleep apnea Arthritis of knee, left History of abdominal hernia Dyslipidemia Bipolar 2 disorder Surgical History History of incisional hernia repair History of lumbar fusion H/O colonoscopy History of partial hypophysectomy H/O hernia repair History of colostomy reversal History of elbow surgery History of left oophorectomy History of partial surgical removal of colon History of total right knee replacement Family History Father Hypertension Mother Pre-diabetes Hypertension Sister Cervical cancer Social History Household Members: Family Household Members Other:: sister Housing: Apartment Housing Other:: third floor Are you a primary school childcare attendant to a significant other at home: No Do you presently have visiting nurse or other home services: Yes Alcohol intake: current Alcohol intake frequency: does not drink Patient Tobacco Use Status: Former Tobacco user Tobacco use type: Smokeless Tobacco Cigarettes Per Day: 4 Years Smoked: 20 years e-Cigarette/Vaping Use: Never Used Second Hand Smoke Exposure: No Substance Use Type: Marijuana service: No Current occupational status: disabled Cognitive needs: No Hearing needs: No Vision needs: No Physical Exam Vital Signs: Last Vital Signs Pulse 80 07/18/25 14:43 Resp 16 07/18/25 14:43 BP 145/95 H 07/18/25 14:43 Pulse Ox 97 07/18/25 14:43 Oxygen Delivery Method Room Air 07/18/25 14:43 BMI result Body Mass Index 39.9 Assessment & Plan Assessment & Plan (1) Primary osteoarthritis of left hip: Code(s): M16.12 - Unilateral primary osteoarthritis, left hip Category: Medical (2) Left hip pain: Code(s): M25.552 - Pain in left hip Category: Medical (3) Arthritis of right hip: Code(s): M16.11 - Unilateral primary osteoarthritis, right hip Category: Medical (4) Right hip pain: Code(s): M25.551 - Pain in right hip Category: Medical (5) Somatic dysfunction of left sacroiliac joint: Code(s): M99.04 - Segmental and somatic dysfunction of sacral region Category: Medical (6) Chronic left SI joint pain: Code(s): M53.3 - Sacrococcygeal disorders, not elsewhere classified; G89.29 - Other 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 Informed concent was explained to the patient The risks, benefits and alternatives were discussed with the patient and informed consent was obtained, patient was placed in the prone position and padded to foster comfort. Time out was performed delineating correct site and side of the procedure , name and of the patient, patient participated in time out procedure. The lower back and upper buttocks of the patient were prepped with ChloraPrep and draped with sterile self adhesive utility towels. C-arm was brought over the operating field and picture of the left SI joint was demonstrated on the screen. Tilting C-arm contralateral to the right the posterior silhouette of the sacroiliac joint was superimposed on anterior silhouette of the sacroiliac joint. The point slightly medial to the sacroiliac joint silhouette was injected with lidocaine 2%, forming skin wheal. After that 22 gauge 3-1/2 inch spinal needle was inserted through the skin wheal and advanced to were the sacroiliac joint in tunnel vision fashion. When the needle entered the sacroiliac joint capsule injection of the contrast was performed delineating intra-articular and minimally periarticular spread of the contrast. After that injection of the treatment solution of ropivacaine 0.5% 5 cc into the joint was performed. Upon completion of the injection needle was withdrawn sterile Band- Aid was applied. The patient tolerated the procedure well. Orders: Orders FL guidance in treatment room 07/18/25 M53.3 - Sacrococcygeal disorders, not elsewhere classified, G89.29 - Other chronic pain Coding Level of Care Code Procedure Only Diagnoses Primary osteoarthritis of left hip M16.12 Left hip pain M25.552 Arthritis of right hip M16.11 Right hip pain M25.551 Somatic dysfunction of left sacroiliac joint M99.04 Chronic left SI joint pain M53.3; G89.29 Osteoarthritis of left hip M16.12
[2025-07-18 14:43] VITALS: BP 145/95; PULSE 80; RESP 16; O2SAT 97
--- OUTSIDE RECORDS SUMMARY | 2025-07-19 11:19 | XMS_ITS | Patient Health Record ---
Author Organization [employer] Address [address] [place] [address] Care Team Providers Care Cafeteria Helper Name Role Phone SAMMY RICHEY Primary Care Provider LUPE Hobbs Unavailable [phone] Allergies Allergen (clinical drug ingredient) Drug/Non Drug Allergy documented on EMR Reaction Allergy Type Onset Date Status Aloe itching Drug Allergy Active metoclopramide Reglan agitation Drug Allergy Ac tive Reason For Referral No Information Medications Medication SIG (Take, Route, Frequency, Duration) Notes Start Date End Date Status Ativan 1 MG 1 tablet at bedtime as needed Orally Once a day Active Atorvastatin Calcium 20 MG 1 tablet Orally Once a day; Duration: 30 days Active traZODone HCl 100 MG 1 tablet at bedtime Orally Once a day; Duration: 30 day(s) 200 Mg QD Active B-12 Compliance Injection 1000 MCG/ML 1 ml Injection; Duration: 30 day(s) Active Lisinopril 2.5 MG 1 tablet Orally Once a day Active Mirena (52 MG) 20 MCG/24HR as directed Intrauterine inserted 07/11/21 Active Topamax 25 MG 1 tablet Orally Once a day; Duration: 30 days Active Scopolamine 1 MG/3DAYS Transdermal; Duration: 72 Active Norethindrone Acetate 5 MG 2 tablets Orally Once a day; Duration: 90 days Active Nystatin 447726 UNIT/GM 1 application Externally Twice a day; Duration: 10 days 11/28/2021 Active Social History Tobacco Use: Social History [...] Notes Problem Excessive and freque nt menstruation (927812914) Excessive and frequent menstruation with regular cycle (N92.0) Active confirmed Problem Dysmenorrhea (171546684) Dysmenorrhea, unspecified (N94.6) Active confirmed Problem Candidiasis (96479272) Other sit es of candidiasis (B37.89) Active confirmed Problem Anemia due to chroni c blood loss (disorder) (851794744) 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 Problem Bipolar II disorder (49188467) Bipolar II disorder (F31.81) Active confirmed Problem Endometriosis (clinical) (524842143) Other endometriosis (N80.8) Active confirmed Problem Abnormal uterine bleeding (80491972705625) Abnormal uterine and vaginal bleeding, unspecified (N93.9) Active confirmed Problem Intrauterine contraceptive device in situ (finding) (944144063) Presence of (intrauterine) contraceptive device (Z97.5) Active confirmed Problem Endometriosis (489905073) Endometriosis, unspecified (N80.9) Active confirmed Problem Dysmenorrhea (251978609) Dysmenorrhea, unspecified (N94.6) Active confirmed Problem SI - Stress incontinence (77243269) Stress incontinence (female) (male) (N39.3) Active confirmed Problem Pure hypercholesterolemia (312825636) Pure hypercholestero lemia, unspecified (E78.00) Active confirmed Vital Signs Temperature 97.8 degrees Fahrenheit 06/22/2025 Blood pressure diastolic 80 mm Hg 06/22/2025 Height 67 in 06/22/2025 Blood pressure systolic 122 mm Hg 06/22/2025 Weight 255 lbs 06/22/2025 BMI 39.93 kg/m2 06/22/2025 Encounters Encounter Location Date Provider Diagnosis Total [address] [place] [address] 06/22/2025 LUPE MONROE Encounter for gynecological examination (general) (routine) without abnormal findings Z01.419 ; Encounter for screening mammogram for malignant neoplasm of breast Z12.31 ; Other sites of candidiasis B37.89 ; Other endometriosis N80.8 and Presence of (intrauterine) contraceptive device Z97.5 Assessments Encounter Date Diagnosis (ICD Code) Assessment Notes Treatment Notes Treatment Clinical Notes Section Notes 06/22/2025 Encounter for gynecological examination (general) (routine) without [...] to keep colon screening up to date. 06/22/2025 Encounter for screening mammogram for malignant neoplasm of breast (ICD-10 - Z12.31) 06/22/2025 Other sites of candidiasis (ICD-10 - B37.89) Will call for Nystatin when she needs a refill 06/22/2025 Other endometriosis (ICD-10 - N80.8) 06/22/2025 Presence of (intrauterine) contraceptive device (ICD-10 - Z97.5) Continue Mirena until at least 2028 Plan Of Treatment Pending Test Test Name Order Date Sonohysterogram 05/16/2021 Test, Urine 06/14/2021 Test, Urine 07/11/2021 Urinalysis 05/16/2021 ULTRASOUND: PELVIC W/TRANSVAGINAL 2020 Diagnostic Left Breast Mammo/US 05/03/20 24 MM Digital Screening Mammogram 3D 2024 MM Digital Screening Mammogram 3D 2021 MM Digital Screening Mammogram 3D 2022 MM Digital Screening Mammogram 3D 2023 Next Appt Details Provider Name:LUPE Soler, 06/28/2026 01:40:00 PM, [address], [address], [place], [address], Insurance Providers Payer Name Payer Address Payer Phone Subscriber Number Group Number Insured Name Patient Relationship to Insured Coverage Start Date Coverage End Date [facility] [address] [place] [address] [id number] BEBETOJO ANN Monzon Self - patient is the insured Medications [...]
--- OUTSIDE RECORDS SUMMARY | 2025-07-19 11:20 | XMS_ITS | Clinical Summary ---
Author Organization [facility] Address [address] [address] Phone Care Team Providers Care Patient Financial Coordinator Name Role Phone Todd Rice NP Primary [...] Medical Devices Not on file Insurance [address] [place] [address] CARE MEDICARE REPLACEMENT [place] [id number] [place] [id number] [place] [address] MEDICARE RE[address]EMENT [address] [place], [place] [id number] [place] [address] CARE MEDICARE REPLACEMENT [address] [place], [place] [id number] [place] [address] MED[address] REPL[address]EMENT [address] [place], [place] [id number] [place] [address] MEDICARE REPL[address]EMENT [address] [place] [address] [facility] ONE CARE MEDICARE REPLACEMENT JEAN CHOE [facility] [address] [place] [address] [address] [place] [address] [address] [place] [address] Care Teams Patient Financial Coordinator Relationship Specialty Start Date End Date Todd Rice NP [address] [place] [address] PCP - General Nurse Practitioner 05/27/23 Additional Source Comments The information contained in this document represents components of the legal health record. It is not the complete legal health record.[facility]
--- OUTSIDE RECORDS SUMMARY | 2025-07-19 11:21 | XMS_ITS | Clinical Summary ---
Author Organization [facility] Address [address] [place] [address] Care Team Providers Care Mold Closer Helper Name Role Phone Todd Rice MD Primary [...] 4 mg/0.1 mL Liquid nasal spray device [place] 4 mg (1 nasal spray) as a [...] 1999 Mammogram 2018 Colonoscopy 2023 Influenza Vaccine 03/31/2025 10/01/2021 COVID-19 Vaccine ( - 2024-2 6 season) 2025 08/13/2022, 09/12/2021, 01/02/2021, Additional history exists Insurance MISC MGD MEDICARE OUT OF NETWORK Care Teams Mold Closer Helper Relationship Specialty Start Date End Date Todd Rice MD [address] [place] [address] PCP - General Family Medicine 02/07/24
--- OUTSIDE RECORDS SUMMARY | 2025-07-19 11:22 | XMS_ITS | Clinical Summary ---
Author Organization [facility] Address [address] [place] [address] Phone Care Team Providers Care Patrol Man Name Role Phone Unavailable Primary Care Provider [...] without esophag itis 04/16/2023 Other intervertebral disc degeneration, lumbosac ral region 04/16/2023 Overview (05/31/2024): Replacing diagnoses that were [...] Phone Billing Address Personal/Family Self [address] Care Dual SNP ([id number]) [place] [phone]
--- OUTSIDE RECORDS SUMMARY | 2025-07-19 11:22 | XMS_ITS | Clinical Summary ---
Author Organization [facility] it Address [address] [place] [address] Care Team Providers Care Terra Cotta Setter Name Role Phone Unavailable Primary Care Provider Unavailabl e Surgical History Surgery Date Site/Laterality Comments COLONOSCOPY 03/06/2009 PROCEDURE: WI COLONOSCOPY FLX DX W/COLLJ SPEC WHEN PFRMD; [...] Years Used Date Smoking Tobacco: Former Cigarettes 0 Q uit: 09/06/2007 Alcohol Use Standard Drinks/Week [...] Last Done Comments Breast Cancer Screening 1978 Colorectal Cancer Screening: Colonoscopy 1978 DTaP,Tdap,and Td Vaccines (1 - Tdap) 1997 Hepatitis B Vaccines (1 of 3 - 19+ 3-dose series) 1997 Cervical Cancer Screening: P ap Smear 1999 HIV Screening 08/30/2024 Hepatitis C Screening 08/30/2024 Social Influencers of Health Screening 08/30/2024 Depression Screening 08/31/2024 COVID-19 Vaccine (1 - 2024-2 6 season) 2025 Influenza Vaccine (#1) 2025 RSV Immunization Adult Patie nts (1 - 1-dose 75+ series) 2053 HIB Vaccines Aged Out No longer eligi [...]
== END 2025-07-18 14:51 | disposition home or self-care (01) ==
LOC: HO.PMCPRC 14:23
PROVIDERS: PCP Internal Medicine; Visit Provider Anesthesiology
DX: M53.3 Sacrococcygeal disorders, not elsewhere classified (principal)
CPT/HCPCS: 27096

== ENCOUNTER 2025-07-20 08:36 | Outpatient (AMB) | payer OTHER, SELFPAY ==
--- OUTSIDE RECORDS SUMMARY | 2025-05-08 05:30 | XMS_ITS ---
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 Physical Encounters Encounter Location Date Provider Diagnosis [facility] [address] [place] [address] 05/08/2025 LUPE MONROE Encounter for gynecological examination (general) (routine) without abnormal findings Z01.419 ; Encounter for screening mammogram for malignant neoplasm of breast Z12.31 and Encounter for screening for infections with a predominantly sexual mode of transmission Z11.3 Assessments Encounter Date Diagnosis (ICD Code) Assessment Notes Treatment Notes Treatment Clinical Notes Section Notes 05/08/2025 Encounter for gynecological examination (general) (routine) without abnormal findings (ICD-10 - Z01.419) During the visit, the following areas of concern were addressed: Discussed cervical cancer screening with either cytology alone every 3 years or high risk HPV co-testing every 5 years as per ASCCP guidelines. Advised continued annual pelvic exams. Patient encouraged to increase her level of exercise. SBE technique encouraged/tau ght. Patient reminded when annual mammogram is due. Patient encouraged to keep colon screening up to date. 05/08/2025 Encounter for screening mammogram for malignant neoplasm of breast (ICD-10 - Z12.31) 05/08/2025 Encounter for screening for infections with a predominantly sexual mode of transmission (ICD-10 - Z11.3) Plan Of Treatment Treatment Notes Assessment Notes Encounter for gynecological [...] to keep colon screening up to date. Pending Test Test Name Order Date MM Digital Screening Mammogram 3D 2024 Next Appt Details Follow Up: 1 Year, Reason: Y early Quality Assurance Coach Exam Provider Name:LUPE Soler, 06/28/2026 01:40:00 PM, [address], [address], [place], [address], Progress Notes * JO ANN LEDESMADOB:[birth year] (45 yo F)Acc No.[id number]:05/08/2025 PROGRESS NOTES Patient: JO ANN SHOOK Provider: Richa MONROE MD :1980 A ge:44 Y S ex:Female Date:05/08/2025 Address:[address] [place], [place] [id number] Pcp:SAMMY SILVER Subjective: * Chief Complaints: * 1 . 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 S he has been in state of good health since her last exam. She has the following concerns: She uses Nystatin powder, and needs a refill. S he received 6 months of depot lupron to treat her endometriosis. She was then switched to norethindrone acetate 10mg daily (2 5mg tabs daily) to suppress the endometriosis. She reports: she remains amenorrheic and she feels she is in a good place with that. Needs refill. S he has received the [employer] Covid-19 vaccine. R elationship status: *partnered for *8 mo. It's a long distance relationship - she lives in [place], [place]. She is sexually active. Sexual partner(s): female. She does not wish to have STI testing. Skyler castañeda: absent C ontraception: same gender partner; Mirena inserted 07/2021 for control of heavy menstrual bleeding S he does *not report vaginal dryness. She does *not have hot flashes/night sweats. T he patient has never had an abnormal pap smear. Her most recent pap smear was 11/28/21 - NIL, neg HR HPV. Next due in 2026. S he has not been diagnosed with breast cancer. She does have a family history of breast cancer - maternal aunt. Her last mammogram was *last year (hasn't yet done it this year). Done at [facility]. She does *not have a family history of colon cancer. She has had a colonoscopy. The last colonoscopy was 3 years ago. She gets them every 5 yrs due to history of diverticulitis. T he patient does* exercise. She exercises x 1days/week by hiking. * ROS: A nnual Quality Assurance Coach Exam ROS: Bowel habit changes d enies. B ladder symptoms d enies. V aginal discharge, unusual d enies. V aginal itch or odor d enies. w eight or appetite changes d enies. C hest pains, SOB d enies. d epression d enies.? B reast: Denies B reast lump. D enies N ipple discharge.? H ematology: Denies S wollen glands. S kin: Patient denies c hanging moles. P sychiatric: Denies A nxiety. * Medical History: Objective: * Vitals: * Examination: G eneral Examination: GENERAL APPEARANCE: i n no acute distress, well developed, well nourished, meat apprentice present in room. HEAD: n ormocephalic, atraumatic. NECK/THYROID: n denisse supple, full range of motion, thyroid normal. LYMPH NODES: n o axillary or supraclavicular adenopathy.? SKIN: normal, good turgor, no rashes, no suspicious lesions. BREASTS: normal, no dimpling, no discharge, no drainage, no masses palpable bilaterally, nontender. ABDOMEN: soft, non-tender, non distended without masses or hepatosplenomegay. RECTAL: normal tone, no masses palpable. BACK: no costovertebral angle tenderness. FEMALE GENITOURINARY: V ulva without lesions or masses, vagina pink without abnormal discharge, lesions or masses, cervix appears normal and is not tender to palpation, uterus is normal size, mobile, nontender and anteverted, ovaries are not palpable. NEUROLOGIC: alert and oriented, gait normal. PSYCH: alert, oriented, cognitive function intact, cooperative with exam, good eye contact, mood/affect full range, speech clear. Assessment: * Assessment: 1. E ncounter for gynecological examination (general) (routine) without abnormal findings - Z01.419 (Primary) 2 . E ncounter for screening mammogram for malignant neoplasm of breast - Z12.31 3 . E ncounter for screening for infections with a predominantly sexual mode of transmission - Z11.3 Plan: * Treatment: 2. E ncounter for screening mammogram for malignant neoplasm of breast I maging: MM Digital Screening Mammogram 3D * Follow Up: 1 Year (Reason: Yearly Quality Assurance Coach Exam) * Images: Billing Information: * Visit Code: 20867 Preventive Care Est Pt. Age 40-64. 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 She has been in state of good health since her last exam. She has the following concerns: She uses Nystatin powder, and needs a refill. She received 6 months of depot lupron to treat her endometriosis. She was then switched to norethindrone acetate 10mg daily (2 5mg tabs daily) to suppress the endometriosis. She reports: she remains amenorrheic and she feels she is in a good place with that. Needs refill. She has received the [employer] Covid-19 vaccine. Relationship status: *partnered for *8 mo. It's a long distance relationship - she lives in [place], [place]. She is sexually active. Sexual partner(s): female. She does not wish to have STI testing. Menses: absent Contraception: same gender partner; Mirena inserted 07/2021 for control of heavy menstrual bleeding She does *not report vaginal dryness. She does *not have hot flashes/night sweats. The patient has never had an abnormal pap smear. Her most recent pap smear was 11/28/21 - NIL, neg HR HPV. Next due in 2026. She has not been diagnosed with breast cancer. She does have a family history of breast cancer - maternal aunt. Her last mammogram was *last year (hasn't yet done it this year). Done at [facility]. She does *not have a family history of colon cancer. She has had a colonoscopy. The last colonoscopy was 3 years ago. She gets them every 5 yrs due to history of diverticulitis. The patient does* exercise. She exercises x 1days/week by hiking. Examination Category Sub-Category Detail Notes Category Not es General Examination GENERAL APPEARANCE: in no ac preet distress, well developed, well nourished, meat apprentice present in room HEAD: normocephalic, atrau matic NECK/THYROID: neck supple, full ra nge of motion, thyroid normal ABDOMEN: soft, non-tender, no n distended without masses or hepatosplenomegay NEUROLOGIC: alert and oriented, gait normal SKIN: normal, good turgor, no rashes, no suspicious lesions BACK: no costovertebral an gle tenderness BREASTS: normal, no dimpling, no discharge, no drainage, no masses palpable bilaterally, nontender LYMPH NODES: no axillary or supra clavicular adenopathy RECTAL: normal tone, no mass es palpable PSYCH: alert, oriented, cog nitive function intact, cooperative with exam, good eye contact, mood/affect full range, speech clear FEMALE GENITOURINARY: Vulva without lesi ons or masses, vagina pink without abnormal discharge, lesions or masses, cervix appears normal and is not tender to palpation, uterus is normal size, mobile, nontender and anteverted, ovaries are not palpable
[2025-07-20 08:37] VITALS: BP 171/89; PULSE 74; RESP 16; O2SAT 98; BMI 41.0
--- NOTE | 2025-07-20 08:37 | MHC.OFFVIS ---
Vital Signs 07/20/25 08:37 Height 5 ft 7 in Weight 262 lb BMI 41.0 BP 171/89 H Blood Pressure Location Lt brachial Position Sitting Respiration 16 Pulse 74 Pulse Source Pulse Oximeter Pulse Oximetry (%) 98 Oxygen Delivery Method Room Air Intake Visit Reasons: S/P Left Diagnostic SIJ Injection Human Resources Officer Required: No Accompanied by: Self / Same As Patient Allergies aloe vera (ALOE VERA) Allergy (Intermediate, Verified 07/20/25 08:37) RASH metoclopramide (From REGLAN) Allergy (Intermediate, Verified 07/20/25 08:37) antsy allopurinol Allergy (Unknown, Verified 07/20/25 08:37) does not remember gabapentin Adverse Reaction (Intermediate, Verified 07/20/25 08:37) Muscle cramps pregabalin (From Lyrica) Adverse Reaction (Intermediate, Verified 07/20/25 08:37) Muscle cramps HPI Comments Details: Nubia is in my office today after diagnostic sacroiliac joint injection which was done on 07/18/2025. The patient reported no pain improvement after left diagnostic sacroiliac joint injection. She reported numbness in the left lower extremity probably secondary to posterior spill of the local anesthetic on the sciatic nerve however her pain in the groin and lateral hip and posterior hip remain the same. On 05/09/2025 the patient received intra-articular hip steroid injection. The patient reported only 7-10 days of pain improvement after the procedure. After that the pain came back. She also stated that her pain in the sacroiliac joint projection on the left is getting exacerbated. She requested me to refer her for [facility]. She is only 45 years old and majority of local physicians do not perform total hip replacement this early. I agreed and I will refer her to [facility]. Prior: Severe intractable pain in the left side of the abdomen. pain started on 06/29/2024 when she had simultaneous surgery on her lower back and in her abdomen. She received L5-S1 posterior fusion by Dr. Valle, and after that she was turned over and Dr. Beaver performed ventral hernia repair. The patient had history of multiple surgeries on her colon in the past related to diverticulosis and diverticulitis. She was admitted to [facility] in July and she was examined by general surgery, there were no indications of acute intra-abdominal process. The report of the CT scan dictated as below. She also had an MRI of the lumbar spine report of this MRI is also dictated as below. None of those images would explain left lower quadrant pain is patient in is complaining today. She had revision of the hernia repair after which her abdominal pain became better. She had 7 abdominal hernia repairs she has a history of total knee replacement on the right. She had history of colon resection and left oophorectomy. History of colostomy and colostomy reversal. She had surgery on her elbow and L5-S1 posterior fusion. She stopped smoking cigarettes in December of 2022. She denies drinking alcohol. She drinks cup of coffee a day. She takes cannabis every day for pain. [facility] Medical History (Updated 07/20/25 @ 09:08 by Guilherme Rodriguez MD) History of marijuana use Arthritis Diverticulitis Stress incontinence Anxiety Depression Vitamin B12 deficiency Elevated cholesterol Anemia Sacroiliitis Sleep apnea Arthritis of knee, left History of abdominal hernia Dyslipidemia Bipolar 2 disorder Surgical History History of incisional hernia repair History of lumbar fusion H/O colonoscopy History of partial hypophysectomy H/O hernia repair History of colostomy reversal History of elbow surgery History of left oophorectomy History of partial surgical removal of colon History of total right knee replacement Family History Father Hypertension Mother Pre-diabetes Hypertension Sister Cervical cancer Social History Household Members: Family Household Members Other:: sister Housing: Apartment Housing Other:: third floor Are you a primary lawn care worker to a significant other at home: No Do you presently have visiting nurse or other home services: Yes Alcohol intake: current Alcohol intake frequency: does not drink Patient Tobacco Use Status: Former Tobacco user Tobacco use type: Smokeless Tobacco Cigarettes Per Day: 4 Years Smoked: 20 years e-Cigarette/Vaping Use: Never Used Second Hand Smoke Exposure: No Substance Use Type: Marijuana service: No Current occupational status: disabled Cognitive needs: No Hearing needs: No Vision needs: No Review of Systems Const All systems reviewed & are unremarkable except as noted in HPI and below ENT Reports Normal hearing present Neuro Reports Normal hearing present, Denies Abnormal speech present and Denies Sensory deficit (Neuro) Physical Exam Vital Signs: Last Vital Signs Pulse 74 07/20/25 08:37 Resp 16 07/20/25 08:37 BP 171/89 H 07/20/25 08:37 Pulse Ox 98 07/20/25 08:37 Oxygen Delivery Method Room Air 07/20/25 08:37 BMI result Body Mass Index 41.0 Const General: alert, awake, Physically active and acute distress severe Nutritional Appearance: obese centrally obese Orientation/consciousness: patient oriented x3 Limitations: physical limitations and ambulation with cane Eyes General: appearance normal, both eyes and all related structures Pupils: Equal, round and reactive pupils present EOM: EOMs intact bilaterally Neck Neck: Yes full ROM Chest Chest palpation & inspection: normal inspection of the chest Resp Effort & Inspection: normal respiratory effort, able to speak in complete sentences, normal respiratory pattern, no audible wheezes and no cough Cardio Jugular venous distension: no JVD GI Other: On inspection there is a scar on anterior surface of the abdomen approximately 15 cm long. The scar is very well healed there is no redness no swelling no pathological discharge. There is severe tenderness on palpation in right lower quadrant. There is no rebound, there is no rigidity, coughing and sneezing aggravate her pain severely. Reports severe constipations. Reports incontinence with urine. Back/Spine/Pelvis Other: On inspection there are 2 scars in the projection of the most lower portion of the lumbar area the scars very well-healed there is also 1 scar below the right scar on the right which probably is from sacroiliac joint fusion from PSIS. Elmer test is positive on the left and equivocal on the right , Gaenslen test is positive on the left and equivocal on the right, Stinchfield test is positive on the left and pelvic distraction test is positive on the left and equivocal on the right. Palestine test is positive on the left. Lateral and medial bilateral hip rotation cause severe discomfort in the groin bilaterally. Neuro General: patient oriented x3 and gait normal Cranial nerves: Yes CN's II-XII intact bilaterally, Yes Equal, round and reactive pupils present, Yes Normal hearing present and Yes Ability to bilaterally elevate shoulders present Speech: No Abnormal speech present Gait exam (Neuro): Normal gait present Motor exam (neuro): 5/5 motor strength present throughout Sensory Exam: No Sensory deficit (Neuro) Extrem General: No pedal edema Psych Speech and movement: Normal speech and movement present Affect: normal affect Attitude: cooperative Thought process: Normal thought process present Thought content: Normal thought content present Insight: Good insight present (Psych) Judgement: Good judgement present (Psych) Results Reviewed Results Reviewed: CT PELVIS WITHOUT CONTRAST CLINICAL INFORMATION: Sacroiliitis. COMPARISON: Lumbar spine CT 03/02/2024, sacroiliac joint radiographs 01/07/2024. TECHNIQUE: Helical scanning was performed with submillimeter collimation through the pelvis. Sagittal and coronal multiplanar 2-D reconstructions were obtained. FINDINGS: The visualized bowel appears unremarkable. There is no evidence of bowel obstruction. The appendix appears normal. There has been prior anterior abdominal wall hernia repair with mesh, unchanged from prior. No free fluid is seen. No adenopathy is seen. Some minimal atherosclerotic changes are present in the aorta and iliofemoral vessels. There is no evidence of an abdominal aortic aneurysm. A normal-appearing anteverted uterus is present which contains an IUD. An abnormal adnexal mass or free intraperitoneal fluid is not seen. The bony pelvis appears unremarkable. There is an unchanged, rounded, sclerotic lesion with lucent center in the right hemisacrum, adjacent to the SI joint (see saved mckeon images). No pathologic fractures or bony destructive lesions. Degenerative changes are seen at L5-S1. CT/CT pelvis wo IV con IMPRESSION: 1. No significant abnormality is seen. 2. The SI joints appear unremarkable. 3. Incidental note made of prior anterior abdominal wall hernia repair with mesh, IUD , degenerative changes at L5-S1 and unchanged sclerotic lesion in the right hemisacrum. Assessment & Plan Assessment & Plan (1) Primary osteoarthritis of left hip: Code(s): M16.12 - Unilateral primary osteoarthritis, left hip Category: Medical (2) Left hip pain: Code(s): M25.552 - Pain in left hip Category: Medical (3) Arthritis of right hip: Code(s): M16.11 - Unilateral primary osteoarthritis, right hip Category: Medical (4) Right hip pain: Code(s): M25.551 - Pain in right hip Category: Medical (5) Somatic dysfunction of left sacroiliac joint: Code(s): M99.04 - Segmental and somatic dysfunction of sacral region Category: Medical (6) Chronic left SI joint pain: Code(s): M53.3 - Sacrococcygeal disorders, not elsewhere classified; G89.29 - Other chronic pain Category: Medical (7) Osteoarthritis of left hip: Code(s): M16.12 - Unilateral primary osteoarthritis, left hip Category: Medical Plan Unfortunately intra-articular hip steroid injection resulted in short-lived pain improvement. Diagnostic sacroiliac joint injection also resulted in no pain improvement. p She requests me to refer [facility] replacement could be performed at her age. I will refer her to [facility] . Orders: Referrals Orthopedics Referral M16.12 - Unilateral primary osteoarthritis, left hip, M25.552 - Pain in left hip Patient Instructions: I here by testify that I spent 30 minutes in conversation with this patient as well as planning her care and organizing this note. Coding Level of Care Code Est Pt Level 4 (96103) Diagnoses Primary osteoarthritis of left hip M16.12 Left hip pain M25.552 Arthritis of right hip M16.11 Right hip pain M25.551 Somatic dysfunction of left sacroiliac joint M99.04 Chronic left SI joint pain M53.3; G89.29 Osteoarthritis of left hip M16.12
--- OUTSIDE RECORDS SUMMARY | 2025-07-20 09:45 | XMS_ITS | Patient Health Record ---
[facility] Organization [facility] Address [address] [place] [address] Care Team Providers Care Surveying Teacher Name Role Phone SAMMY RICHEY Primary Care Provider LUPE Hobbs Unavailable [phone] Allergies Allergen (clinical drug ingredient) Drug/Non Drug [...] a day; Duration: 90 days Active Nystatin 566534 UNIT/GM 1 application Externally Twice a day; [...] Notes Problem Excessive and freque nt menstruation (788827681) Excessive and frequent menstruation with regular cycle (N92.0) Active confirmed Problem Dysmenorrhea (984054902) Dysmenorrhea, unspecified (N94.6) Active confirmed Problem Candidiasis (80657387) Other sit es of candidiasis (B37.89) Active confirmed Problem Anemia due to chroni c blood loss (disorder) (179266914) 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 Problem Bipolar II disorder (28771943) Bipolar II disorder (F31.81) Active confirmed Problem Endometriosis (clinical) (730801720) Other endometriosis (N80.8) Active confirmed Problem Abnormal uterine bleeding (02503197321372) Abnormal uterine and vaginal bleeding, unspecified (N93.9) Active confirmed Problem Intrauterine contraceptive device in situ (finding) (935020716) Presence of (intrauterine) contraceptive device (Z97.5) Active confirmed Problem Endometriosis (127326698) Endometriosis, unspecified (N80.9) Active confirmed Problem Dysmenorrhea (455977187) Dysmenorrhea, unspecified (N94.6) Active confirmed Problem SI - Stress incontinence (05651216) Stress incontinence (female) (male) (N39.3) Active confirmed Problem Pure hypercholesterolemia (360615734) Pure hypercholestero lemia, unspecified (E78.00) Active confirmed Vital Signs Temperature 97.8 degrees Fahrenheit 06/22/2025 Blood pressure diastolic 80 mm Hg 06/22/2025 Height 67 in 06/22/2025 Blood pressure systolic 122 mm Hg 06/22/2025 Weight 255 lbs 06/22/2025 BMI 39.93 kg/m2 06/22/2025 Encounters Encounter Location Date Provider Diagnosis Total [address] [place] [address] 06/22/2025 LUPE MONROE Encounter for gynecological examination [...] Provider Name:LUPE Soler, 06/28/2026 01:40:00 PM, [address], [address], [place], [address], Insurance Providers Payer Name Payer Address Payer Phone Subscriber Number Group Number Insured Name Patient Relationship to Insured Coverage Start Date Coverage End Date [facility] [address] [place] [address] [id number] BEBETOJO ANN Monzon Self - patient is [...]
--- OUTSIDE RECORDS SUMMARY | 2025-07-20 09:46 | XMS_ITS | Clinical Summary ---
Author Organization [facility] Address [address] [address] Phone Care Team Providers Care Disk Grinder Name Role Phone Todd Rice NP Primary [...] Medical Devices Not on file Insurance [address] [place] [address] CARE MEDICARE REPLACEMENT [place] [id number] [place] [id number] [place] [address] MEDICARE REPL[address]EMENT [address] [place], [place] [id number] [place] [address] CARE MEDICARE REPLACEMENT [address] [place], [place] [id number] [place] [address] [address] [place], [place] [id number] [place] [address] MED[address]ARE RE[address]EMENT [address] [place] [address] [facility] CARE MEDICARE REPLACEMENT JEAN CHOE [facility] [address] [place] [address] [address] [place] [address] [address] [place] [address] Care Teams Disk Grinder Relationship Specialty Start Date End Date Todd Rice NP [address] [place] [address] PCP - General Nurse Practitioner 05/27/23 Additional Source Comments The information contained in this document represents components of the legal health record. It is not the complete legal health record.[facility]
--- OUTSIDE RECORDS SUMMARY | 2025-07-20 09:47 | XMS_ITS | Clinical Summary ---
Author Organization [facility] Address [address] [place] [address] Care Team Providers Care Commercial Credit Reviewer Name Role Phone Todd Rice MD Primary [...] 4 mg/0.1 mL Liquid nasal spray device Stanton 4 mg (1 nasal spray) as a [...] MGD MEDICARE OUT OF NETWORK Care Teams Commercial Credit Reviewer Relationship Specialty Start Date End Date Todd Rice MD [address] [place] [address] PCP - General Family Medicine 02/07/24
--- OUTSIDE RECORDS SUMMARY | 2025-07-20 09:47 | XMS_ITS | Clinical Summary ---
Author Organization [facility] Address [address] [place] [address] Phone Care Team Providers Care Hide Curer Name Role Phone Unavailable Primary Care Provider [...] Phone Billing Address Personal/Family Self [address] Care Dual SNP ([id number]) [place] [address]
--- OUTSIDE RECORDS SUMMARY | 2025-07-20 09:47 | XMS_ITS | Data Portability ---
Author Organization [facility], [facility] Address [address] [place] [address] Care Team Providers Care Recycling Operator Name Role Phone [facility] Referring Provider [phone] Assessment No assessment recorded. Plan of Treatment [...] temperature Heart rate Respiratory rate Oxygen saturation Respiratory rate Oxygen saturation Body temperature Heart rate Body temperature Oxygen saturation Heart rate Respiratory rate Provider Name and Address Organization Details Last Updated DateTime 3 98.4 [degF] 85 /min 16 /min 97 % 16 /min 97 % 98.4 [degF] 85 /min 98.4 [degF] 97 % 85 /min 16 /min Not Available Modti 3 11:56:43 Date Recorded Systolic And Diastolic Systolic And Diastolic Systolic And Diastolic Provider Name and Address Organization Details Last Updated DateTime 02/21/2023 145/83 mm[Hg] 145/83 mm[Hg] 145/83 mm[Hg] Not Available [facility] 02/21/2023 11:56:43 Social History None recorded. Functional Status None recorded. Mental Status None recorded. Family History Nothing Reported. Medical History No medical history recorded. Gynecological HistoryNo gynecological history recorded. Obstetrics History GPAL:G 0 P 0 0 0 0 Past Encounters Encounter ID Performer Location Encounter Start Date Encounter Closed Date Diagnosis/Indication Diagnosis SNOMED-CT Code Diagnosis ICD10 Code Diagnosis IMO Codes Diagnosis Note [id number] Albert Mariscal MD [address] [address] 02/21/2023 11:40:33 02/23/2023 09:59:30 Vitamin B12 deficiency (non anemic) 97992117 E53.8 Cementer Machine Applicator gave B12 injection with no issues. Vitals stable. Health Concerns Section Related Observation LastModified by Organization Detai ls LastModified Time None Recorded Concern Status LastModified by Organization Details LastModified Time None Recorded Advance Directives Directive None Recorded Payers Insurance Date Sequence Insurance Name Policy Number Policy Casas Covered Member ID Casas Member ID Guarantor Name 05/25/2024 1 [facility] - DOS ON OR AFTER 2022 - DUAL ELIGIBLE - [facility] OPTIONS AND ONE CARE (MEDICARE REPLACEMENT/ADV ANTAGE - HMO) Nubia Bergeron [id number] Nubia Bergeron Notes Date Note Type Note [...] ................. ................. ................. ................. ................. ................. ..... Cementer Machine Applicator Note From Ned Breen: Assisted pt with vit b12 injection due to deficiency ................. ................. ................. ................. ................. ................. ................. ................. ..... Disposition: Fulfilled Albert Mariscal MD [address], [place], [address], [employer] 02/21/2023 20:48:40 OBGyn Episode No OBEpisode recorded.
== END 2025-07-20 09:07 | disposition home or self-care (01) ==
LOC: HO.PMC 08:36
PROVIDERS: PCP Internal Medicine; Visit Provider Anesthesiology
DX: M25.552 Pain in left hip (principal); M16.0 Bilateral primary osteoarthritis of hip; M99.04 Segmental and somatic dysfunction of sacral region; M53.3 Sacrococcygeal disorders, not elsewhere classified; G89.29 Other chronic pain
CPT/HCPCS: 99214

== ENCOUNTER → 2025-07-20 08:36 | Outpatient (BNVA) | payer OTHER, SELFPAY | PROVIDERS: PCP Internal Medicine; Visit Provider Anesthesiology | DX: M16.0 Bilateral primary osteoarthritis of hip (principal); M25.552 Pain in left hip; M25.551 Pain in right hip; M99.04 Segmental and somatic dysfunction of sacral region; M53.3 Sacrococcygeal disorders, not elsewhere classified | CPT/HCPCS: 99212 ==